=== PATIENT | male | born 1960 | race Caucasian/White ===

== ENCOUNTER 2022-02-03 09:51 | Emergency (ER) | payer MEDICARE, MEDICAID, SELFPAY ==
--- NOTE | 2022-02-03 10:27 | W.ED.MEDCLER ---
HPI - Medical Clearance General Stated complaint: med request Time Seen by Provider: 02/03/22 10:21 Source: patient Mode of arrival: ambulatory Limitations: no limitations History of Present Illness 61-year-old male with a significant psychiatric history presents to the ER today for medication refills. Patient reports he recently moved here from [place] and has not have a doctor here. He reports he is scheduled with but not until the summer. Patient reports he is worried because he needs a refill on several of his medications. Patient reports he needs a refill on metoprolol and simvastatin, also on Zyrtec. Patient has plenty of the benztropine and the nasal spray. Patient denies any recent changes in medications. No other concerns today. Related Information Previous Rx's Medication Instructions Recorded cetirizine 10 mg capsule (Zyrtec) 10 mg PO DAILY #30 caps 02/03/22 metoprolol tartrate 25 mg tablet 25 mg PO BID 30 days #60 tabs 02/03/22 simvastatin 20 mg tablet 20 mg PO DAILY #30 tabs 02/03/22 Allergies Allergy/AdvReac Type Severity Reaction Status Date / Time oxycodone [From OxyContin] Allergy nausea Verified 01/26/22 10:57 Penicillins Allergy ALGY-Difficulty Verified 01/26/22 10:57 Breathing lithium Allergy nausea Uncoded 01/26/22 10:57 Course Course 61-year-old male presents to the ER today for medication refills. Patient has a significant psychiatric history and is just needing his meds refilled because he is new to the area and does not have an appointment with psych until April. Patient actually just needs refills on simvastatin and metoprolol. He reports he wants a PCP in the same building as his psychiatrist. I explained to him that most of the time the PCPs are not in the same building as psychiatry but it would be the same medical system therefore they would have the same charts and could share the same history for the patient. MDM - Medical Clearance MDM Narrative Medical decision making narrative: 61-year-old male presents to the ER today for medication refills. Patient has a significant psychiatric history and is just needing his meds refilled because he is new to the area and does not have an appointment with psych until April. Patient actually just needs refills on simvastatin and metoprolol. He reports he wants a PCP in the same building as his psychiatrist. I explained to him that most of the time the PCPs are not in the same building as psychiatry but it would be the same medical system therefore they would have the same charts and could share the same history for the patient. I am okay with refilling these today. I did place a referral for a PCP and psychiatry to see if we could get him in sooner. Return to the ER with new or worsening symptoms. Critical Care Time Critical Care Time Critical Care Time: No Discharge Plan Discharge Patient Disposition: Home Clinical Impression: Medication refill Condition: Stable Prescriptions: New metoprolol tartrate 25 mg tablet 25 mg PO BID 30 Days Qty: 60 0RF simvastatin 20 mg tablet 20 mg PO DAILY Qty: 30 0RF Rx Instructions: at bedtime Zyrtec 10 mg capsule 10 mg PO DAILY Qty: 30 0RF Discharge Orders: Discharge ED (Routine); Ordered 02/03/22 Ordered By: Twyla Mcdaniel Discharge Diet: Usual diet Discharge Activity: Resume usual activity Patient Instructions: Opioid Safety, Pain Management Activity Restrictions/Additional Instructions: Take medications as prescribed. Follow-up with a PCP and psychiatry.
[2022-02-03 10:35] VITALS: BP 124/83; PULSE 86; RESP 16; TEMP 37; O2SAT 98
--- NOTE | 2022-02-07 12:53 | DCPLANNER ---
Addendum entered by Gina Trivedi 02/07/22 14:52: regional training manager was unable to reach patient to speak with him about services at [facility]. Addendum entered by Gina Trivedi 02/07/22 14:51: regional training manager received the following message from [facility] regarding follow up appointment: Yes, I was working with him. He told me he does not want services with [facility]. He said he was going to [facility] where he has a provider and said that he was told that [facility] has a psychiatrist that can give him the Invega. He said he cannot go to . even if he could get in sooner. He said he was walking, I don?t think he has transportation. He is living at [facility]. He would not hear what I was saying. He is also on the cancelation list for Dr. Monae. Original Note: regional training manager had message to speak with patient about getting a primary care physician. regional training manager called patient, unable to speak with patient at this time. regional training manager also had message to refer patient to [facility]. regional training manager emailed patients information to Merlene Garibay, tax collection coordinator at [facility]. Patients information will be reviewed. Clinic will call patient with appointment information.
== END 2022-02-03 10:48 | disposition home or self-care (01) ==
PROVIDERS: Emergency Provider Physician Assistant
DX: Z76.0 Encounter for issue of repeat prescription (principal)
CPT/HCPCS: 99284

== ENCOUNTER 2022-02-06 08:58 | Emergency (ER) | payer MEDICARE, MEDICAID, SELFPAY ==
[2022-02-06 09:02] VITALS: BP 125/81; PULSE 94; RESP 18; TEMP 36.5; O2SAT 98; BMI 25.1
--- NOTE | 2022-02-06 09:14 | ED_ITS ---
HPI - General Adult General: Chief complaint: General Medical Stated complaint: Wants to see a female DrAnson and female Psych Time Seen by Provider: 02/06/22 09:02 Source: patient Mode of arrival: ambulatory History of Present Illness: 61-year-old male presents emergency room stating he wants an Invega shot and a flu shot. He was seen here 3 days ago he states he recently moved here and was out of his medications he was given 1 month prescription for metoprolol and simvastatin. On arrival here he is demanding and confrontational to staff he demands that he only has female nurses. He also demands that he has a female physician and wants to be set up with a female psychiatrist. He denies any acute problems at this time. He states he has something scheduled with [facility] and is supposed to see a female psychiatrist there. He also states he has been over to [facility] is a primary care from clinic. Patient becomes belligerent when advised that we do not administer routine flu vaccinations or Invega shots in the emergency room. Associated symptoms: Deny chest pain, confusion, dyspnea, fevers/chills, headache(s), nausea, short of breath or vomiting Treatments prior to arrival: none Review of Systems Const: Denies: fever(s) or chills Card: Denies: chest pain Resp: Denies: dyspnea, productive cough or non-productive cough GI: Denies: abdominal pain, nausea or vomiting : Denies: dysuria Neuro: Denies: headache(s) or confusion PFS ED PFSH: Medical History (Updated 02/06/22 @ 09:54 by Miguel Rawls DO) Hyperlipidemia Hypertension Psychiatric care Physical Exam Narrative: EXAM NARRATIVE: Patient declined examination Course Vital Signs: Vital signs: Vital Signs Temperature 97.7 F 02/06/22 09:28 Pulse Rate 94 02/06/22 09:28 Respiratory Rate 18 02/06/22 09:28 Blood Pressure 125/81 02/06/22 09:28 Pulse Oximetry 98 02/06/22 09:28 Oxygen Delivery Me thod 02/06/22 09:02 MDM - General Adult Medical Decision Making Patient refuses exam. I was able to briefly talk to him and get a very brief review of systems is not appear to have any acute medical issue at this time. Once he realized we would not relent on the issue of female providers he chose to leave AM. I did call the crisis center. They are familiar with him they are going to try to get him in sooner they will discuss with the psychiatrist he is scheduled to see and see about getting his Invega sooner to prevent any crisis episodes. At this time he does not appear to be in a crisis episode that requires that we place him on a 96-hour hold or inpatient therapy. Medical Records I reviewed the patient's medical records. 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
[2022-02-06 09:28] VITALS: BP 125/81; PULSE 94; RESP 18; TEMP 36.5; O2SAT 98
== END 2022-02-06 09:29 | disposition left against medical advice (07) ==
PROVIDERS: Emergency Provider Family Medicine
DX: Z76.0 Encounter for issue of repeat prescription (principal); Z53.21 Procedure and treatment not carried out due to patient leaving prior to being seen by health care provider; I10 Essential (primary) hypertension; E78.5 Hyperlipidemia, unspecified
CPT/HCPCS: 99283

== ENCOUNTER → 2022-05-04 09:18 | Outpatient (BNVA) | payer MEDICARE, MEDICAID, OTHER, SELFPAY | PROVIDERS: Visit Provider Psychiatry & Neurology Psychiatry | DX: Z79.899 Other long term (current) drug therapy (principal); F20.9 Schizophrenia, unspecified | CPT/HCPCS: 80053; 80061; 83036; 84443; 85025 ==

== ENCOUNTER → 2023-04-23 10:31 | Outpatient (BNVA) | payer MEDICARE, MEDICAID, SELFPAY | PROVIDERS: Visit Provider Psychiatry & Neurology Psychiatry | DX: F25.0 Schizoaffective disorder, bipolar type (principal); Z79.899 Other long term (current) drug therapy | CPT/HCPCS: 80053; 80061; 83036; 83721; 84443; 85025 ==

== ENCOUNTER → 2024-02-07 09:40 | Outpatient (BNVA) | payer MEDICARE, MEDICAID, SELFPAY ==
[2023-10-01 10:06] VITALS: BP 158/106; BMI 37.4
== END ==
PROVIDERS: Visit Provider Student in an Organized Health Care Education/Training Program
DX: Z12.11 Encounter for screening for malignant neoplasm of colon (principal)
CPT/HCPCS: 99024; 99204

== ENCOUNTER 2024-05-08 09:43 | Day surgery (SDC) | payer MEDICAID, SELFPAY ==
[2023-10-01 10:06] VITALS: BP 158/106; BMI 37.4
[2024-05-08 10:32] VITALS: BP 146/99; PULSE 98; RESP 18; TEMP 36.8; O2SAT 96; BMI 34.2
[2024-05-08] MEDS: sodium chloride 0.9% 500 ML 15 ML IV (10:37)
[2024-05-08 10:39] LABS: Glucose Point of Care 160 mg/dL (70-110)
--- NOTE | 2024-05-08 11:12 | PC.NURSE ---
Pt drank milk this morning and also was unclear about his prep and was not cleaned out well,. Dr Elkins spoke to the patient and he will be rescheduled.
== END 2024-05-08 11:07 | disposition home or self-care (01) ==
PROVIDERS: Visit Provider Student in an Organized Health Care Education/Training Program
PROC: 0DJD8ZZ Inspection of Lower Intestinal Tract, Via Natural or Artificial Opening Endoscopic (ICD-10-PCS; CPT 45378; principal; 2024-05-08 11:00)
DX: Z53.8 Procedure and treatment not carried out for other reasons (principal)
CPT/HCPCS: 36416; 82962; J7040

== ENCOUNTER 2024-05-15 14:44 | Outpatient (CLI) | payer MEDICAID, SELFPAY ==
[2023-10-01 10:06] VITALS: BP 158/106; BMI 37.4
--- NOTE | 2024-05-15 14:55 | CT_ITS ---
WS: [id number] CT ABDOMEN AND PELVIS WITH CONTRAST HISTORY: ABDOMINAL DISTENSION TECHNIQUE: Imaging performed of the abdomen and pelvis with IV contrast. Single phase imaging of the abdomen. Coronal and sagittal reformats are submitted. All CT scans at [facility] use at [address] one of these dose optimization techniques: automated exposure control; mA and/or kV adjustment per patient size (includes targeted exams where dose is matched to clinical indication); or iterative re construction. IV CONTRAST: Omnipaque 350; 100 mL IV. Oral contrast: Yes. DLP: 979.21 mGy.cm COMPARISON: None available. Lower thorax: Lung bases are clear. Heart is normal size. No hiatal hernia. Liver/biliary system: Diffuse moderate hepatic steatosis. Liver is mildly enlarged. No mass. No intra hepatic bile duct dilatation. Normal portal vein. Gallbladder: Normal. No gallstones or wall thickening. No pericholecystic fluid. Pancreas: Normal size pancreas and pancreatic duct. No adjacent inflammation. Spleen: Normal size spleen. No mass or infarct. Adrenal glands: Normal. Right kidney: Minimal perinephric stranding. No obstruction or mass. Left kidney: Tiny cortical cyst hypodensities in the superior pole. Cortical hypodensities are too sm all to characterize. Mild perinephric stranding. No obstruction. Aorta: Mild atherosclerosis with no aneurysm. Lymphadenopathy: None. Free fluid: None. GI tract: Stomach is well distended with oral contrast. Nondiagnostic food products within the stomac h. No small bowel obstruction. No colon obstruction. No evidence for acute diverticulitis. Normal reyes endix. Abdominal wall: Mild diastases rectus. Pelvis: Normally distended urinary bladder. There is no focal wall thickening. Prostate gland is very small caliber. No free fluid or adenopathy. Bones: Mild spondylitic changes in the lower thoracic and lumbar spines. Advanced degenerative disc d isease at L4-5. CT/CT abdomen pelvis w con* [id number] IMPRESSION: 1. No acute abdominal or pelvic abnormalities. 2. No ascites. 3. No GI tract obstruction. 4. No renal obstruction. 5. Mild hepatomegaly and moderate hepatic steatosis. 6. No adenopathy in the abdomen or pelvis.
[2024-05-15] MEDS: iohexol 350 mg/mL 500 mL Btl (per mL) PO (15:55)
== END 2024-05-15 14:45 | disposition home or self-care (01) ==
PROVIDERS: PCP Family Medicine; Visit Provider Family Medicine
DX: R14.0 Abdominal distension (gaseous) (principal); K76.0 Fatty (change of) liver, not elsewhere classified; R93.422 Abnormal radiologic findings on diagnostic imaging of left kidney; I70.0 Atherosclerosis of aorta; M51.369 Other intervertebral disc degeneration, lumbar region without mention of lumbar back pain or lower extremity pain
CPT/HCPCS: 74177

== ENCOUNTER → 2024-06-03 07:00 | Day surgery (SDC) | payer MEDICARE, MEDICAID, SELFPAY ==
[2023-10-01 10:06] VITALS: BP 158/106; BMI 37.4
[2024-05-20 10:46] VITALS: BP 144/92; BMI 36.6
--- NOTE | 2024-06-03 08:36 | ANES.PREANE2 ---
Pre-Anesthetic Assessment Height/Weight: Height 5 ft 11 in Operation Date: 06/03/24 08:45 Proposed Procedures p Colonoscopy 01196, G0105, Z12.11(Not Applicable) - Ramin Elkins MD Anesthetic Plan Other: Patient has a substance abuse history comes in for a colonoscopy Preop blood sugar was 340s. Patient reports not taking his subcu insulin at home. When asked why he could not give me a reason. Patient is super fidgety and his eyes keep rolling back in his head. He states that he has been taking methamphetamine his whole life. He is refusing drug testing today Patient is also refusing to allow us to treat his blood sugar and does not want to wait around. We will remove his IV and let patient go home Medications/Allergies Home Medications Medication Instructions Recorded Confirmed Last Taken Type metoprolol succinate 25 mg 25 mg PO BID 90 days #180 tabs 05/23/22 05/29/24 05/29/24 Rx tablet,extended release 24 hr metformin 500 mg tablet 500 mg PO BID 10/23/23 05/29/24 05/29/24 History paliperidone palmitate 156 mg/mL 156 mg IM .q 28 days #1 mL 10/25/23 05/29/24 Unknown Rx intramuscular syringe losartan 25 mg tablet 25 mg PO DAILY 02/19/24 05/29/24 05/29/24 History simvastatin 40 mg tablet 40 mg PO BEDTIME 02/19/24 05/29/24 05/29/24 History sitagliptin phosphate 100 mg 100 mg PO DAILY 02/19/24 05/29/24 05/29/24 History tablet (Januvia) benztropine 2 mg tablet 2 mg PO BID 90 days #180 tabs 04/24/24 05/29/24 05/29/24 Rx cetirizine 10 mg tablet 10 mg PO DAILY 05/05/24 05/29/24 05/29/24 History Allergies Allergy/AdvReac Type Severity Reaction Status Date / Time lithium Allergy ADR-Nausea Verified 06/03/24 08:09 oxycodone [From OxyContin] Allergy nausea Verified 06/03/24 08:09 Penicillins Allergy ALGY-Difficulty Verified 06/03/24 08:09 Breathing REPLACED BY [facility] Anesthesia Medical History (Updated 04/24/24 @ 09:53 by Mara Crews, [facility]) Schizoaffective disorder, bipolar type Seasonal allergies History of Parkinson's disease Hyperlipidemia Hypertension Psychiatric care Family History (Updated 02/07/24 @ 10:13 by BÁRBARA Rueda) Father Cancer stomach Mother Cancer ovarian Social History Smoking and tobacco/nicotine status: former use of tobacco/nicotine Alcohol intake: current Alcohol intake frequency: holidays/special occasions only Substance/Drug Use: former Adopted: No Caregiver/support person: No Lives independently: Yes Household members: none Housing: Apartment Marital status: / Number of children: 1 Number of grandchildren: 2 Highest education level completed: 8th Grade Current occupational status: unemployed Pets and animals: No Leisure activites: exercise and clubs Sexually active: No Do you think of yourself as: Straight/Heterosexual Current gender identity: Male Janelle/Pentecostalism: Episcopal Special janelle needs: No Agree to transfusion: Yes Data Anesthesia Cardiac Studies: No Data to Display
== END ==
LOC: GILAB 07:01
PROVIDERS: PCP Family Medicine; Visit Provider Student in an Organized Health Care Education/Training Program
DX: Z12.11 Encounter for screening for malignant neoplasm of colon (principal); Z53.8 Procedure and treatment not carried out for other reasons

== ENCOUNTER → 2024-07-21 10:05 | Outpatient (BNVA) | payer MEDICARE, OTHER, SELFPAY ==
[2024-05-20 10:46] VITALS: BP 144/92; BMI 36.6
== END ==
PROVIDERS: PCP Family Medicine; Visit Provider Nurse Practitioner Psychiatric/Mental Health
DX: Z79.899 Other long term (current) drug therapy (principal); F25.0 Schizoaffective disorder, bipolar type
CPT/HCPCS: 80061; 83036

== ENCOUNTER → 2024-08-14 12:34 | Outpatient (BNVA) | payer MEDICARE, SELFPAY ==
[2024-08-12 08:41] VITALS: BP 143/101; BMI 36.0
== END ==
PROVIDERS: PCP Family Medicine; Visit Provider Student in an Organized Health Care Education/Training Program
DX: Z12.11 Encounter for screening for malignant neoplasm of colon (principal)
CPT/HCPCS: 99024; 99214

== ENCOUNTER 2024-09-05 20:16 | Inpatient (IN) | payer MEDICARE, MEDICAID, SELFPAY ==
[2024-08-12 08:41] VITALS: BP 143/101; BMI 36.0
[2024-09-05] VITALS (8 sets, daily range): BP systolic 149–179; BP diastolic 100–106; PULSE 84–109; RESP 12–20; TEMP 37.6; O2SAT 90–99; BMI 37.6
--- NOTE | 2024-09-05 21:13 | CTR_ITS ---
PROCEDURE INFORMATION: Exam: CT Head Without Contrast Exam date and time: 09/05/2024 9:33 PM Age: 64 years old Clinical indication: Stroke-like symptoms; Dizziness/giddiness; Additional info: EMS arrival for AMS. Patient randomly repeating holy father and will laugh for no reason at random. History of parkinson's. TECHNIQUE: Imaging protocol: Computed tomography of the head without contrast. Radiation optimization: All CT scans at this facility use at least one of these dose optimization techniques: automated exposure control; mA and/or kV adjustment per patient size (includes targeted exams where dose is matched to clinical indication); or iterative reconstruction. Other technique: STROKE PROTOCOL was implemented. COMPARISON: No relevant prior studies available. RADIATION DOSE METRICS: Total DLP (mGy-cm): 1123.68 FINDINGS: Brain: Normal. No hemorrhage. Unremarkable white matter. No mass effect. Cerebral ventricles: No ventriculomegaly. Paranasal sinuses: Visualized sinuses are unremarkable. No fluid levels. Mastoid air cells: Visualized mastoid air cells are well aerated. Bones: Unremarkable. No acute fracture. Soft tissues: Unremarkable. CT/CT head thrombolytic 60794 IMPRESSION: No acute intracranial abnormality. ASSESSMENT: ASPECTS ([place] Stroke Program Early CT Score) is 10.
--- NOTE | 2024-09-05 21:13 | ECG_ITS ---
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
[2024-09-05 21:22] LABS: Basophils # 0.1 10^3/uL (0.0-0.1); Basophils % 0.6 %; Eosinophils # 0.3 10^3/uL (0.0-0.8); Eosinophils % 3.4 %; Hematocrit 44.6 % (37-53); Lymphocytes # 1.9 10^3/uL (0.8-4.8); Lymphocytes % 24.5 %; Mean Corpuscular HGB Conc 32.7 g/dL (30-55); Mean Corpuscular Hemoglobin 28.7 pg (27-33); Mean Corpuscular Volume 87.6 fl (82-101); Mean Platelet Volume 9.5 fL (7.4-10.4); Monocytes # 0.8 10^3/uL (0.2-0.9); Monocytes % 9.6 %; Neutrophils # 4.82 10^3/uL (1.8-7.7); Neutrophils % 61.5 %; Nucleated Red Blood Cells % 0 %; Platelet Count 293 10^3/cmm (157-399); Red Blood Count 5.09 10^6/uL (3.85-5.65); Red Cell Distribution Width 13.4 % (12.1-15.1); White Blood Count 7.84 10^3/uL (3.29-11.43)
[2024-09-05 21:34] LABS: INR 0.99 (0.8-1.2)
[2024-09-05 21:35] LABS: Partial Thromboplastin Time 28.5 SECONDS (23.9-36.7)
[2024-09-05 21:39] LABS: Alanine Aminotransferase 38 U/L (0-41); Albumin Level 4.2 g/dL (3.5-5.2); Alkaline Phosphatase 83 U/L (40-130); Anion Gap 15.6 (5-19); Aspartate Amino Transferase 29 U/L (0-40); Blood Urea Nitrogen 9 mg/dL (8-23); Calcium 8.8 mg/dL (8.5-10.5); Carbon Dioxide 23 mmol/L (22-29); Chloride 93 mmol/L (98-107); Creatinine Clr Calc Pharmacy 145.7362; Globulin 2.8 g/dL (1.3-4.6); Glomerular Filtration Rate 114.3 mL/min (90-130); Glucose 158 mg/dL (65-115); Osmolality Calculated 268 mOsm/kg (285-295); Potassium 3.6 mmol/L (3.5-5.1); Sodium 128 mmol/L (136-145)
[2024-09-05 22:17] LABS: Bilirubin Urine Negative (Negative); Blood Urine Negative (Negative); Glucose Urine UA Negative (Normal); Ketones Urine Trace (Negative); Leukocyte Esterase Urine Negative (Negative); Nitrate Urine Negative (Negative); Protein Urine Negative (Negative); Specific Gravity, Urine 1.012 (1.005-1.030); Urine Appearance Clear (CLEAR); Urine Color Yellow (Yellow); pH Urine 5.5 (5-7)
[2024-09-05 22:21] LABS: Add Urine Microscopic? YES; Bacteria Urine None Seen /hpf; Hyaline Casts Urine 1.65 /lpf; RBC Urine 0-2 /hpf (0-2); Squamous Epithelial Cell Urine 0-5 /hpf (0-5); WBC Urine 0-5 /hpf (0-5)
[2024-09-05 22:27] LABS: Amphetamines Screen Urine Negative (Negative); Barbiturates Screen Urine Negative (Negative); Benzodiazepines Screen Urine Negative (Negative); Cocaine Screen Urine Negative (Negative); Opiate Screen Urine Negative (Negative); PCP Screen Urine Negative (Negative); THC Screen Urine Negative (Negative)
[2024-09-05 22:39] LABS: UA Slide Review UA Slide Review Perf
--- NOTE | 2024-09-05 22:55 | W.ED.AMS ---
HPI - Altered Mental Status General: Chief Complaint: Altered Mental Status Stated Complaint: AMS Time Seen by Provider: 09/05/24 20:39 History of Present Illness: Benedicto, a male patient with a history of schizophrenia, was found outside in the lobby of his apartment complex exhibiting abnormal behavior. He was initially unresponsive to commands and making repetitive statements, primarily saying Holy Father and his birthday. The patient was observed earlier in the day by some individuals who thought he was acting abnormally. When emergency services initially arrived, he had already left the scene. He was later found and brought in for evaluation. Benedicto is currently minimally responsive, only occasionally responding to his name or making repetitive statements. He does not follow commands, making it difficult to assess for any weakness. His blood pressure was recorded as 140/100. Benedicto appears to be experiencing altered mental status of unclear duration. He is not responding appropriately to questions and has limited verbal output. When asked if he is hurting anywhere or if he has taken any medications recently, he does not provide a clear answer. The patient's ability to perform daily activities is likely impaired given his current mental state, though specific details are not available. Related Data Home Medications ?Medication ?Instructions ?Recorded ?Confirmed metformin 500 mg tablet See Rx Instructions .Route .COMPLEX 10/23/23 08/28/24 losartan 25 mg tablet 25 mg PO DAILY 02/19/24 08/28/24 simvastatin 40 mg tablet 40 mg PO BEDTIME 02/19/24 08/28/24 sitagliptin phosphate 100 mg 100 mg PO DAILY 02/19/24 08/28/24 tablet (Januvia) cetirizine 10 mg tablet 10 mg PO DAILY 05/05/24 08/28/24 Previous Rx's ?Medication ?Instructions ?Recorded metoprolol succinate 25 mg 25 mg PO BID 90 days #180 tabs 05/23/22 tablet,extended release 24 hr paliperidone palmitate 156 mg/mL 156 mg IM .q 28 days #1 mL 10/25/23 intramuscular syringe benztropine 2 mg tablet 2 mg PO BID 90 days #180 tabs 04/24/24 peg 3350-electrolytes 236 240 ml PO Q10M #4,000 mL 08/28/24 gram-22.74 gram-6.74 gram-5.86 gram solution (Golytely) bisacodyl 5 mg tablet,delayed 5 mg PO DAILY 2 days #4 tabs 08/29/24 release (Dulcolax (bisacodyl)) Allergies Allergy/AdvReac Type Severity Reaction Status Date / Time lithium Allergy ADR-Nausea Verified 08/28/24 08:44 oxycodone (From OxyContin) Allergy nausea Verified 08/28/24 08:44 Penicillins Allergy ALGY-Difficulty Verified 08/28/24 08:44 Breathing Review of Systems General: Reports: ROS unobtainable due to mental status PFSH ED PFSH: Medical History Schizoaffective disorder, bipolar type Seasonal allergies History of Parkinson's disease Hyperlipidemia Hypertension Psychiatric care Family History Father Cancer stomach Mother Cancer ovarian Social History Smoking and tobacco/nicotine status: former use of tobacco/nicotine Alcohol intake: current Alcohol intake frequency: holidays/special occasions only Substance/Drug Use: former Adopted: No Caregiver/support person: No Lives independently: Yes Household members: none Housing: Apartment Marital status: / Number of children: 1 Number of grandchildren: 2 Highest education level completed: 8th Grade Current occupational status: unemployed Pets and animals: No Leisure activites: exercise and clubs Sexually active: No Do you think of yourself as: Straight/Heterosexual Current gender identity: Male Janelle/Tenriism: Alevism Special janelle needs: No Agree to transfusion: Yes Physical Exam Const: COMMON NORMALS: no acute distress, patient oriented x3, healthy appearing, alert and well nourished HENMT: COMMON NORMALS: normocephalic HEAD & SCALP: normocephalic Eye: COMMON NORMALS: EOMs intact bilaterally Neck/C-Spine: COMMON NORMALS: full ROM and supple Resp: COMMON NORMALS: normal respiratory effort, No retractions and clear to auscultation bilaterally AUSCULTATION: clear to auscultation bilaterally Cardio: COMMON NORMALS: regular rate, regular rhythm, No gallops present (Cardio) and No murmurs present (Cardio) RATE: regular rate RHYTHM: regular rhythm GI: COMMON NORMALS: Soft to palpation and non-tender PALPATION: Yes Soft to palpation Extremity: GENERAL: Yes normal exam except as noted Neuro: COMMON NORMALS: patient oriented x3 SENSORIUM/ORIENTATION: Yes alert Skin: COMMON NORMALS: no rashes or lesions noted GENERAL SKIN EXAM: no rashes or lesions noted Course Vital Signs: Vital signs: Vital Signs Temperature 99.7 F H 09/05/24 20:25 Pulse Rate 88 09/06/24 02:15 Respiratory Rate 21 H 09/06/24 02:15 Blood Pressure 177/97 09/06/24 02:15 Pulse Oximetry 99 09/06/24 02:15 Oxygen Delivery Me thod Room Air 09/06/24 01:38 MDM - Altered Mental Status Medical Decision Making 64-year-old male presents via EMS for evaluation of altered mental status. Patient lives in assisted living and other residents saw that he was acting abnormally today EMS brought him in for evaluation. On physical exam there was no focal neurologic deficit. However, his right eye was somewhat deviated up into the right. However, when tracking people it would then tracked normally with his left eye. He was slightly tachycardic on arrival. This resolved with hydration. His labs were significant for hyponatremia and hyperchloremia with some hyperglycemia. Patient's head CT did not show any acute findings. On chart review it would appear that the patient has not gotten his Invega shot in quite some time. Discussed the case with the patient's brother over the phone who stated this is how he sometimes acts when he is off his medications. His symptoms likely represent acute schizophrenia versus stroke versus infection versus intracranial mass. Case discussed with Dr. Fermin who agreed to admit the patient into the psych unit. Differential Diagnosis Likely alcoholic intoxication, altered mental status, delirium, dementia, hypoglycemia, hyponatremia, subarachnoid hemorrhage and sepsis Medical Records I reviewed the patient's medical records. Lab Data I reviewed the patient's lab results. 09/05/24 20:26 09/05/24 20:[address] 09/05/24 21:13 IMPRESSION: No acute intracranial abnormality. ASSESSMENT: ASPECTS ([place] Stroke Program Early CT Score) is 10. ADDENDUM: 09/05/242152 Addendum: THIS REPORT CONTAINS FINDINGS THAT MAY BE CRITICAL TO PATIENT CARE. The findings were verbally communicated via telephone conference with RENATA LANGFORD at 9:52 PM CDT on 09/05/2024. The findings were acknowledged and understood. Laboratory Results WBC 7.84 10^3/uL (3.29-11.43) 09/05/24 20: RBC 5.09 10^6/uL (3.85-5.65) 09/05/24 20: Hgb 14.60 g/dL (11.27-16.99) 09/05/24 20: Hct 44.6 % (37-53) 09/05/24: MCV 87.6 fl (82-101) 09/05/24: MCH 28.7 pg (27-33) 09/05/24 20: MCHC 32.7 g/dL (30-55) 09/05/24: RDW 13.4 % (12.1-15.1) 09/05/24: Plt Count 293 10^3/cmm (157-399) 09/05/24: MPV 9.5 fL (7.4-10.4) 09/05/24: Neut % (Auto) 61.5 % 09/05/24: Lymph % (Auto) 24.5 % 09/05/24: [place] % (Auto) 9.6 % 09/05/24: Eos % (Auto) 3.4 % 09/05/24: Baso % (Auto) 0.6 % 09/05/24: Neut # (Auto) 4.82 10^3/uL (1.8-7.7) 09/05/24: Lymph # (Auto) 1.9 10^3/uL (0.8-4.8) 09/05/24 20: [place] # (Auto) 0.8 10^3/uL (0.2-0.9) 09/05/24: Eos # (Auto) 0.3 10^3/uL (0.0-0.8) 09/05/24: Baso # (Auto) 0.1 10^3/uL (0.0-0.1) 09/05/24: Nucleated RBC % (auto) 0 % 09/05/24: Nucleated RBCs # 0.0 /100WBC 09/05/24 20: PT 13.80 SECONDS (12.1-14.9) 09/05/24 20: INR 0.99 (0.8-1.2) 09/05/24 20: APTT 28.5 SECONDS (23.9-36.7) 09/05/24 20: Sodium 128 mmol/L (136-145) L 09/05/24 20: Potassium 3.6 mmol/L (3.5-5.1) 09/05/24: Chloride 93 mmol/L (98-107) L 09/05/24: Carbon Dioxide 23 mmol/L (22-29) 09/05/24 20: Anion Gap 15.6 (5-19) 09/05/24 20: BUN 9 mg/dL (8-23) 09/05/24: Creatinine 0.7 mg/dL (0.7-1.2) 09/05/24 20: GFR Calculation 114.3 mL/min (90-130) 09/05/24: Glucose 158 mg/dL (65-115) H 09/05/24: Calculated Osmolality 268 mOsm/kg (285-295) L 09/05/24: Calcium 8.8 mg/dL (8.5-10.5) 09/05/24: Total Bilirubin 1.0 mg/dL (0.15-1.2) 09/05/24 20: AST 29 U/L (0-40) 09/05/24 20: ALT 38 U/L (0-41) 09/05/24: Alkaline Phosphatase 83 U/L (40-130) 09/05/24 20: Total Protein 7.0 g/dL (6.6-8.7) 09/05/24 20: Albumin 4.2 g/dL (3.5-5.2) 09/05/24 20: Globulin 2.8 g/dL (1.3-4.6) 09/05/24 20: Urine Color Yellow (Yellow) 09/05/24 22:07 Urine Appearance Clear (CLEAR) 09/05/24 22:07 Urine pH 5.5 (5-7) 09/05/24 22:07 Ur Specific [place] 1.012 (1.005-1.030) 09/05/24 22:07 Urine Protein Negative (Negative) 09/05/24 22:07 Urine Glucose (UA) Negative (Normal) 09/05/24 22:07 Urine Ketones Trace (Negative) 09/05/24 22:07 Urine Blood Negative (Negative) 09/05/24 22:07 Urine Nitrate Negative (Negative) 09/05/24 22:07 Urine Bilirubin Negative (Negative) 09/05/24 22:07 Urine Urobilinogen 1.0 mg/dL (Negative) 09/05/24 22:07 Ur Leukocyte Esterase Negative (Negative) 09/05/24 22:07 Urine RBC 0-2 /hpf (0-2) 09/05/24 22:07 Urine WBC 0-5 /hpf (0-5) 09/05/24 22:07 Ur Squamous Epith Cells 0-5 /hpf (0-5) 09/05/24 22:07 Amorphous Sediment Not Reportable 09/05/24 22:07 Urine Bacteria None seen /hpf (NONE) 09/05/24 22:07 Hyaline Casts 1.65 /lpf 09/05/24 22:07 Urine Opiates Screen Negative ng/mL (Negative) 09/05/24 22:07 Ur Barbiturates Screen Negative ng/mL (Negative) 09/05/24 22:07 Ur Phencyclidine Scrn Negative ng/mL (Negative) 09/05/24 22:07 Ur Amphetamines Screen Negative ng/mL (Negative) 09/05/24 22:07 U Benzodiazepines Scrn Negative ng/mL (Negative) 09/05/24 22:07 Urine Cocaine Screen Negative ng/mL (Negative) 09/05/24 22:07 U Marijuana (THC) Screen Negative ng/mL (Negative) 09/05/24 22:07 All radiology interpretation(s) finalized by discharge EKG Data EKG 1: Interpretation: Sinus rhythm with first-degree AV block with a ventricular rate of 98, OR interval 216, QRS duration 90, QTc of 405, no ST segment elevation or depression. EKG 2: Interpretation: Sinus rhythm with first-degree AV block rate 95, parable 203, cures duration 98, QTc of 423, no ST segment elevation or depression Discharge Plan Discharge Patient Disposition: Placed in Observation Clinical Impression: Schizophrenia, Altered mental status Condition: Stable Prescriptions: No Action metformin 500 mg tablet See Rx Instructions .ROUTE .COMPLEX Rx Instructions: take 2 in the am and 1 at night paliperidone palmitate 156 mg/mL syringe 156 mg IM .q 28 days Qty: 1 12RF Rx Instructions: Injection every 28 days Januvia 100 mg tablet 100 mg PO DAILY benztropine 2 mg tablet 2 mg PO BID 90 Days Qty: 180 2RF Rx Instructions: Take one tablet twice per day peg 3350-electrolytes [Golytely] 236-22.74-6.74 -5.86 gram recon soln 240 ml PO Q10M Qty: 4000 0RF Rx Instructions: until fecal effluent is clear bisacodyl [Dulcolax (bisacodyl)] 5 mg tablet,delayed release (DR/EC) 5 mg PO DAILY 2 Days Qty: 4 0RF metoprolol succinate 25 mg tablet extended release 24 hr 25 mg PO BID 90 Days Qty: 180 0RF losartan 25 mg tablet 25 mg PO DAILY simvastatin 40 mg tablet 40 mg PO BEDTIME cetirizine 10 mg tablet 10 mg PO DAILY Rx Instructions: TAKE ONE TABLET BY MOUTH EVERY DAY Referrals: Nidia Mccann DO [Primary Care Provider] - Patient Instructions: Altered Mental Status (ED) Print Language: [place] Coding Level of Care Code ED Dude Wrangler for Brien Loomis
[2024-09-05] MEDS: sodium chloride 0.9% 1,000 ML 999 ML IV (23:31)
[2024-09-06] VITALS (23 sets, daily range): BP systolic 124–185; BP diastolic 70–118; PULSE 82–107; RESP 12–21; TEMP 36.4–37.3; O2SAT 94–99
--- OUTSIDE RECORDS SUMMARY | 2024-09-06 04:32 | XMS_ITS | Data Portability ---
Author Organization FACUNDO Hook [facility] Address [address] [facility] [facility] [address] [place] [address] Care Team Providers Care Senior Underwriter Name Role Phone CHRISTOPHER ARCOS Primary Care Provider Assessment Encounter Date Assessment Date Assessment LastModified by Organization Details LastModified Time 11/01/2022 11/01/2022 The patient is doing well on current medications. We will send referral to urology as well as neurology for management of Parkinson's. Patient was encouraged to continue to seek psychiatric care through [facility]. No other concerns today. [email or web address] Not available 11/01/2022 12:29:00 12/20/2022 12/20/2022 Overall the patient is doing well on current medications. Will check an A1C today given his history of elevated blood sugars. The patient does have acquired hearing loss due to aging and would likely benefit from a doorbell so that he can hear people at his door. Will send a letter to the building drafting officer. Otherwise continue current medications with no changes. Continue to follow-up with psychiatry. [email or web address] Not available 12/20/2022 10:29:21 Plan of Treatment Reminders Order Date Submit Date Provider Last Modified By Organization Details Last Modified Time Details Appointments None recorded. Lab CMP, serum or plasma 2022 023 LATONYADEB [facility], [address], [place], [address], 3 11:36:04 lipid panel, blood 2022 023 LATONYADEB [facility], [address], [place], [address], 3 11:36:07 CBC 2022 023 LATONYA [facility], [address], [address], 3 11:03:45 HbA1c (hemoglobin A1c), blood 2022 023 [facility] ([facility]), [address] [place], [address], 3 15:33:45 Referral urologist referral 2022 023 [email or web address] Not available 3 12:50:00 neurologist referral [email or web address] [facility], [address] [place], [address], 3 20:17:18 Procedures None recorded. Surgeries None recorded. Imaging None recorded. Medication Orders lisinopril 20 mg tablet 2022 023 [facility] [place], [address] [place], [address], 3 17:22:52 Patient TargetsNo targets recorded. Patient InstructionsNo instructions recorded. Reason for Referral Urologist Referral for Lower urinary tract symptoms due to benign prostatic hypertrophy Referring Physician: Christopher Arcos, Family Medicine, Encounter Date: 11/01/2022 Neurologist Referral for Par kinson's disease Referring Physician: Christopher Arcos Family Medicine, Encounter Date: 11/01/2022 Results Created Date Observation Date Name Description Value Unit Range Abnormal Flag Note LastModifiedBy Organization Detail LastModifiedTime 12/21/19 23 12/20/2022 HbA1c (hemo globi n A1c), blood HbA1c 5.7 Not Available [facility] ([facility]) [address] [place], [address], 12/20/2022 10:02:33 04/02/20 23 04/02/2023 CBC WBC 5.4 x10 4.5-10 .5 Not Available [facility] [address] [facility] [address], [place], [address], 04/02/2023 11:03:45 04/02/20 23 04/02/2023 CBC RBC 5.07 x10 4.30-5 .90 Not Available [facility] [address] [facility], [place], [address], 04/02/2023 11:03:45 04/02/20 23 04/02/2023 CBC HGB 15.4 g/dL 13.5-1 8.0 Not Available [facility] [address] [facility], [place], [address], 04/02/2023 11:03:45 04/02/20 23 04/02/2023 CBC HCT 44.1 % 35.0-6 0.0 Not Available [facility] [address] [facility], [place], [address], 04/02/2023 11:03:45 04/02/20 23 04/02/2023 CBC MCV 86.9 fL 80.0-9 9.9 Not Available [facility] [address] [facility] [address] [facility], [place], [address], 04/02/2023 11:03:45 04/02/20 23 04/02/2023 CBC MCH 30.4 pg 27.0-3 2.0 Not Available [facility] [address] [facility], [place], [address], 04/02/2023 11:03:45 04/02/20 23 04/02/2023 CBC MCHC 34.9 g/dL 32.0-3 6.0 Not Available [facility] [address] [facility], [place], [address], 04/02/2023 11:03:45 04/02/20 23 04/02/2023 CBC RDW 14.3 % 11.5-1 4.5 Not Available [facility] [address] [facility] [address], [place], [address], 04/02/2023 11:03:45 04/02/20 23 04/02/2023 CBC plt 208.5 x10 150.0- 451.0 Not Available [facility] [address] [facility] [address], [place], [address], 04/02/2023 11:03:45 04/02/20 23 04/02/2023 CBC lymphocytes % 30.1 % 20.0-5 0.0 Not Available [facility] [address] [address], [place], [address], 04/02/2023 11:03:45 04/02/20 23 04/02/2023 CBC granulcytes % 52.9 % 30.0-7 0.0 Not Available [facility] [address] [address], [place], [address], 04/02/2023 11:03:45 04/02/20 23 04/02/2023 CBC monocytes % 10.7 % 2.0-10 .0 high Not Available [facility] [address] [facility] [address], [place], [address], 04/02/2023 11:03:45 04/02/20 23 04/02/2023 CBC granulcytes# 2.8 x10 Not Martina ilable [facility] [address] [address], [place], [address], 04/02/2023 11:03:45 04/02/20 23 04/02/2023 CBC lymphocytes # 1.6 x10 Not Available [facility] [address] [address], [place], [address], 04/02/2023 11:03:45 04/02/20 23 04/02/2023 CBC monocytes # 0.6 x10 Not [facility] [address] [facility] [address], [place], [address], 04/02/2023 11:03:45 04/02/20 23 04/02/2023 CMP (MALE ) glucose 151.0 mg/dL 60.0-9 9.0 high Not Available [facility] [address] [facility] [address], [place], [address], 04/02/2023 11:36:04 04/02/20 23 04/02/2023 CMP (MALE ) BUN (blood urea nitrogen) 20.0 mg/dL 10.0-2 6.0 Not Available [facility] [address] [address], [place], [address], 04/02/2023 11:36:04 04/02/20 23 04/02/2023 CMP (MALE ) creatinine (serum) 0.9 mg/dL 0.4-1. 5 Not Available [facility] [address] [address], [place], [address], 04/02/2023 11:36:04 04/02/20 23 04/02/2023 CMP (MALE ) BUN/creatini ne ratio 22.22 ratio Not Available [facility] [address] [facility] [address], [place], [address], 04/02/2023 11:36:04 04/02/20 23 04/02/2023 CMP (MALE ) eGFR calculated 91.2 Not Available [facility] [address] [facility] [address], [place], [address], 04/02/2023 11:36:04 04/02/20 23 04/02/2023 CMP (MALE ) total protein 7.1 g/dL 6.0-8. 5 Not Available [facility] [address] [facility] [address], [place], [address], 04/02/2023 11:36:04 04/02/20 23 04/02/2023 CMP (MALE ) total bilirubin 0.6 mg/dL 0.2-1. 3 Not Available [facility] [address] [facility] [address], [place], [address], 04/02/2023 11:36:04 04/02/20 23 04/02/2023 CMP (MALE ) albumin 4.1 g/dL 3.5-5. 5 Not Available [facility] [address] [facility] [address], [place], [address], 04/02/2023 11:36:04 04/02/20 23 04/02/2023 CMP (MALE ) globulin 3.0 calc Not Available [facility] [address] [facility] [address], [place], [address], 04/02/2023 11:36:04 04/02/20 23 04/02/2023 CMP (MALE ) AST (SGOT) 46.0 U/L 0.0-46 .0 Not Available [facility] [address] [facility] [address], [place], [address], 04/02/2023 11:36:04 04/02/20 23 04/02/2023 CMP (MALE ) altv (SGPT) 68.0 U/L 13.0-6 9.0 normal Not Available [facility] [address] [facility] [address], [place], [address], 04/02/2023 11:36:04 04/02/20 23 04/02/2023 CMP (MALE ) A/G ratio 1.4 ratio Not Available [facility] [address] [facility] [address], [place], [address], 04/02/2023 11:36:04 04/02/20 23 04/02/2023 CMP (MALE ) ALP phos 74.0 U/L 30.0-1 40.0 normal Not Available [facility] [address] [facility], [place], [address], 04/02/2023 11:36:04 04/02/20 23 04/02/2023 CMP (MALE ) calcium 9.6 mg/dL 8.4-10 .5 Not Available [facility] [address] [facility] [address], [place], [address], 04/02/2023 11:36:04 04/02/20 23 04/02/2023 CMP (MALE ) sodium 133.0 mmol/ L 136.0- 145.0 low Not Available [facility] [address] [facility] [address], [place], [address], 04/02/2023 11:36:04 04/02/20 23 04/02/2023 CMP (MALE ) potassium 4.5 mmol/ L 3.5-5. 1 Not Available [facility] [address] [facility] [address], [place], [address], 04/02/2023 11:36:04 04/02/20 23 04/02/2023 CMP (MALE ) chloride 99.0 mmol/ L 98.0-1 10.0 normal Not Available [facility] [address] [facility] [address], [place], [address], 04/02/2023 11:36:04 04/02/20 23 04/02/2023 CMP (MALE ) C02 29.0 mmol/ L 22.0-3 1.0 Not Available [facility] [address] [facility] [address], [place], [address], 04/02/2023 11:36:04 04/02/20 23 04/02/2023 CMP (MALE ) anion gap 5.0 calc Not Available [facility] [address] [facility] [address], [place], [address], 04/02/2023 11:36:04 04/02/20 23 04/02/2023 CMP (MALE ) osmolality 280.2 calc Not Available [facility] [address] [facility] [address], [place], [address], 04/02/2023 11:36:04 04/02/20 23 04/02/2023 LIPID PROFI LE (MALE ) cholesterol 271.0 mg/dL 0.0-20 0.0 high Not Available [facility] [address] [facility] [address], [place], [address], 04/02/2023 11:36:07 04/02/20 23 04/02/2023 LIPID PROFI LE (MALE ) trig 505.0 mg/dL 0.0-15 0.0 high Not Available [facility] [address] [facility], [place], [address], 04/02/2023 11:36:07 04/02/20 23 04/02/2023 LIPID PROFI LE (MALE ) HDL - direct 32.0 mg/dL >40.0 low Not Available [facility] [address] [facility] [address], [place], [address], 04/02/2023 11:36:07 04/02/20 23 04/02/2023 LIPID PROFI LE (MALE ) VLDL - direct 101.0 mg/dL Not Available [facility] [address] [facility] [address], [place], [address], 04/02/2023 11:36:07 04/02/20 23 04/02/2023 LIPID PROFI LE (MALE ) LDL - direct 138.0 mg/dL 0.0-13 0.0 high Not Available [facility] [address] [facility] [address], [place], [address], 04/02/2023 11:36:07 Result Notes None recorded. Problems Name Problem SNOMED Code Status Onset Date Resolution Date Notes Provider Name and Address Organization Details Recorded Time Psychotic disorder 54826052 Active 2022 REGI agustin [facility] 3 11:37:18 Parkinson's disease 50272260 Active 2022 REGI agustin [facility] 3 11:37:18 Benign prostatic hyperplasia 639200066 Active 2022 REGI agustin [facility] 3 11:37:18 Bipolar disorder 98097876 Active 2022 REGI agustin [facility] 3 11:37:17 Lower urinary tract symptoms due to benign prostatic hypertrophy 0944756904527 1 Active 2022 REGI ag[facility]in [facility] 3 11:37:18 Essential hypertensio n 68148480 Active 2022 REGI agustin [facility] 3 11:37:18 History of myocardial infarction 041714860 Active 2022 REGI ag[facility]in [facility] 3 11:37:18 Schizophren ia 28197424 Active 2022 REGI ag[facility]in [facility] 3 16:42:51 Hyperglycem ia 75455017 Active 2022 REGI ag[facility]in [facility] 3 16:43:01 Allergic rhinitis 91781908 Active 2022 REGI ag[facility]in [facility] 3 16:42:56 Acquired hearing loss 838927759 Active 2022 REGI agustin [facility] 3 16:42:48 Hyperlipide tyler 88774407 Active 2022 Christopher Arcos MD [address] [place] [address], [phone], [facility] 3 10:13:33 Fear of heights 695326942 Active 2022 Christopher Arcos MD [address] [place] [address], [phone], [facility] 3 10:13:55 Problem Notes None recorded. Medical Equipment None Reported. Allergies Allergen ID Allergen Name Allergen Category Reaction Reaction Severity Criticality Documentation Date Start Date Code Code System Note Provider Name and Address Organization Details Recorded Time 4597 Product containin g penicilli n (product) medicatio n Not available Not available Not available 11/01/2022 39417 8001 SNOMED REGI ag[facility]in [facility] 3 10:01:00 4598 Oxycontin medicatio n Not available Not available Not available 11/01/2022 19060 6 RxNorm REGI agustin [facility] 3 10:01:10 83978 lithium Not available Not available Not available Not available 04/02/2023 6448 RxNorm MCPARAMLE ED nikole [facility] 3 09:45:23 Medications Name Sig Start Date Stop Date Status Note LastModified by Organization Details LastModified Time cetirizine 10 mg tablet TAKE ONE TABLET BY MOUTH EVERY DAY active Not Available Not Available No t Available lisinopril 20 mg tablet Take 1 tablet every day by oral route. 2022 active Not Available Not Available Not Avai lable simvastatin 20 mg tablet take ONE tablet BY MOUTH ONCE DAILY active Not Available Not Available No t Available benztropine 2 mg tablet TAKE 1 TABLET BY MOUTH TWICE DAILY active Not Available Not Available No t Available metoprolol succinate ER 25 mg tablet,exte nded release 24 hr TAKE ONE TABLET BY MOUTH TWICE DAILY active Not Available Not Available No t Available metoprolol tartrate 25 mg tablet Take 1 tablet twice a day by oral route. 06/01 completed Not Available Not Available Not Available Invega Sustenna 234 mg/1.5 mL intramuscul ar syringe inject 234mg (1.5ml) INTRAMUSC ULARLY every 28 DAYS active Not Available Not Available No t Available Flonase Allergy Relief 50 mcg/actuati on nasal spray,suspe nsion [place] 1 spray every day by intranasa l route. 2022 active Not Available Not Available Not Avai lable Vitals Date Recorded Respiratory rate Body height Body mass index (BMI) Body weight Body temperature Heart rate Oxygen saturation Oxygen saturation in Arterial blood by Pulse oximetry Systolic blood pressure Diastolic blood pressure Provider Name and Address Organization Details Last Updated DateTime 3 20 /min 180.34 cm 33.4 kg/m2 820620. 98 g 97.5 [degF] 64 /min 97 % 97 % 112 mm[Hg] 80 mm[Hg] [facility] 3 10:06:22 Date Recorded Body height Respiratory rate Body mass index (BMI) Body weight Body temperature Heart rate Oxygen saturation Oxygen saturation in Arterial blood by Pulse oximetry Systolic blood pressure Diastolic blood pressure Provider Name and Address Organization Details Last Updated DateTime 3 180.34 cm 20 /min 33.1 kg/m2 156524. 09 g 97.2 [degF] 86 /min 98 % 98 % 150 mm[Hg] 80 mm[Hg] [facility] 3 09:43:58 Date Recorded Body height Respiratory rate Body mass index (BMI) Body weight Body temperature Heart rate Oxygen saturation Oxygen saturation in Arterial blood by Pulse oximetry Systolic blood pressure Diastolic blood pressure Provider Name and Address Organization Details Last Updated DateTime 3 180.34 cm 20 /min 33.8 kg/m2 158861. 45 g 97.9 [degF] 94 /min 97 % 97 % 144 mm[Hg] 86 mm[Hg] REGI MILNER [facility] 09:45:29 Date Recorded Body height Body mass index (BMI) Body weight Body temperature Oxygen saturation Oxygen saturation in Arterial blood by Pulse oximetry Heart rate Systolic blood pressure Diastolic blood pressure Provider Name and Address Organization Details Last Updated DateTime 3 180.34 cm 35.9 kg/m2 270892. 04 g 97.5 [degF] 95 % 95 % 105 /min 150 mm[Hg] 86 mm[Hg] CAMILLE WARD [facility] 09:45:10 Social History Question Answer Notes LastModified by Organizat ion Details LastModified Time Tobacco Smoking Status Former Smoker CAMILLE agustin [facility] 04/02/2023 09:47:08 What Is Your Level Of Alcohol Consumption? Occasional Information not available 04/02/2023 What Is Your Level Of Caffeine Consumption? Occasional Information not available 04/02/2023 Are You Currently Employed? No Information not available 04/02/2023 What Is Your Relationship Status? Information not available 04/02/2023 Sex: Unknown Functional Status Question Answer Note LastModified by Organization D etails LastModified Time Are you able to walk? YESWOREST Information not available 04/02/2023 Are you able to care for yourself? Yes Information not available 04/02/2023 Mental Status None recorded. Family History Nothing Reported Notes:cancer: mother, father , Medical History No medical history recorded. Immunizations Vaccine Type Date Status Note Provider Nam e and Address Organization Details Recorded Time COVID-19, mRNA, LNP-S, PF, 100 mcg/0.5mL dose or 50 mcg/0.25mL dose 09/30/2021 completed [facility]GI ag[facility]in [facility] 02/04/2023 16:43:22 COVID-19, mRNA, LNP-S, bivalent, PF, 30 mcg/0.3 mL dose 03/30/2022 completed REGI agustin, [facility] 02/04/2023 16:43:22 influenza, unspecified formulation 02/11/2015 [facility] 02/04/2023 16:43:22 Tdap 06/24/2015 completed REGI agustin, [facility] 02/04/2023 16:43:22 Tdap 09/30/2021 completed REGI agustin, [facility] 02/04/2023 16:43:22 Tdap 01/13/2022 [facility] 02/04/2023 16:43:22 Influenza, split virus, trivalent, PF 01/29/2017 completed REGI agustin, [facility] 02/04/2023 16:43:22 Hep A, adult 03/10/2019 completed REGI agustin, [facility] 02/04/2023 16:43:22 Hep A, adult 05/05/2019 completed REGI agustin, [facility] 02/04/2023 16:43:22 Influenza, split virus, quadrivalent, PF 07/01/2018 completed REGI agustin, [facility] 02/04/2023 16:43:22 Influenza, split virus, quadrivalent, PF 02/05/2019 completed REGI agustin, [facility] 02/04/2023 16:43:22 Influenza, split virus, quadrivalent, PF 02/14/2022 completed REGI agustin, [facility] 02/04/2023 16:43:22 COVID-19, mRNA, LNP-S, PF, 50 mcg/0.5 mL 02/26/2023 completed [facility]GI ag[facility]in [facility] 06/01/2023 19:12:57 Influenza, split virus, quadrivalent, PF 02/05/2023 completed [facility] 02/05/2023 11:06:09 Past Encounters Encounter ID Performer Location Encounter Start Date Encounter Closed Date Diagnosis/Indication Diagnosis SNOMED-CT Code Diagnosis ICD10 Code Diagnosis Note [id number] Christopher Arcos MD [facility] ([facility]) [address] [place] [phone] 11/01/2022 09:45:19 11/01/2022 12:47:18 Lower urinary tract symptoms due to benign prostatic hypertrophy 0154259664 9101 N40.1 Parkinson's disease 4904 9000 G20 Psychotic disorder 91741 001 F29 Bipolar disorder 5947517 4 F31.9 Essential hypertension 64988290 I10 History of myocardial infarction 812767314 I25.2 [id number] Christopher Arcos MD [facility] ([facility]) [address] [place] [phone] 12/20/2022 09:35:24 12/20/2022 10:38:21 Essential hypertension 99824177 I10 Benign pro static hyperplasia 410621147 N40.1 Schizophrenia 48235456 F 20.9 Bipolar disorder 2820087 4 F31.9 Hyperglycemia 03230851 R 73.9 Allergic rhinitis 236933 04 J30.9 Acquired hearing loss 72 5019436 H91.90 [id number] Christopher Arcos MD [facility] ([facility]) [address] [place] [phone] 02/05/2023 09:36:55 02/05/2023 10:48:47 Benign prostatic hyperplasia 174070294 N40.1 Patient is awaiting urology evaluation and treatment. Essential hypertension 48483657 I10 Blood pressure is mildly elevated today.. Patient will monitor blood pressure and report if unable to control or if they develop new symptoms. Schizophrenia 01779357 F 20.9 Patient is doing well on current medication s. Continue follow-ups with psychiatry [id number] Christopher Arcos MD [facility] ([facility]) [address] [place] [phone] 04/02/2023 09:37:06 04/02/2023 15:33:03 Adult health examination 556441141 Z00.00 We will check labs today. Patient has been having some glucose issues. Patient was encouraged to eat a well-terrell isaias diet and exercise 30 minutes daily. Essential hypertension 90288765 I10 Pressure not well controlled . Start lisinopril . Patient was encouraged to have his blood pressure checked routinely. Hyperlipidemia 17453049 E78.5 Fear of heights 22507948 1 F40.241 We will provide a letter stating that he has fair hygiene to consider weaning him to a lower level apartment if available. Health Concerns Section Related Observation LastModified by Organization Detai ls LastModified Time None Recorded Concern Status LastModified by Organization Details LastModified Time None Recorded Advance Directives Directive None Recorded Payers Encounter Date Sequence Insurance Name Policy Number Policy Franklin Covered Member ID Franklin Member ID Guarantor Name 11/01/2022 1 [place] - PPO) [id number] Benedicto Amaral [id number] Benedicto Amaral 11/01/2022 2 [place] Benedicto Amaral [id number] Benedicto Amaral 12/20/2022 1 [employer] DV[place]AGE - [place]MO) Benedicto Amaral [id number] Benedicto Amaral 12/20/2022 2 [place] Benedicto Amaral [id number] Benedicto Amaral 02/05/2023 1 [employer] DVANTAGE - HMO) Benedicto Amaral [id number] Benedicto Amaral 02/05/2023 2 [place] Benedicto Amaral [id number] Benedicto Amaral 04/02/2023 1 [facility] [place] DV[place] - [place]MO) Benedicto Amaral [id number] Benedicto Amaral 04/02/2023 2 [place] Benedicto Amaral [id number] Benedicto Amaral Notes Date Note Type Note Provider Name and Address Organization Details Recorded Time 11/01/2022 text/html This is a 62-year-old gentleman that comes in today to establish care. Patient has a significant mental health issues and sees [facility] for psychiatry care. Mental status has been stable. Patient has been told he has a Parkinson's disease but has not seen a neurologist for quite some time. Patient also has prostate issues with lower urinary tract symptoms and is referral to urology. Patient states that he has been stable on current medications. Patient states that he had a heart attack when he was younger and has had some high blood pressure but this has been controlled on current medications. Christopher Arcos MD [address] [place] [address], [phone], [facility] 11/01/2022 12:29:11 12/20/2022 text/html This is a 62-year-old gentleman that comes in today for follow-up. Patient continues to see psychiatry for his mental health. Patient reports that his blood pressure typically does well on current medications. The patient continues to have significant prostate issues and has recently seen urologist midlevel at [place]. Patient has been told that he likely needs prostate surgery given his significant lower urinary tract symptoms. Patient has been told that he has had elevated blood sugars but is unsure if he is truly diabetic or just prediabetic. Patient also has some hearing impairment and states that he has difficulty hearing people at the door when he is in another room. He states he needs a letter so the mechanical engineering manager will install a doorbell for him. Christopher Arcos MD [address] [place] [address], [phone], [facility] 12/20/2022 10:29:43 02/05/2023 text/html This is a 62-year-old gentleman that comes in today for routine follow-up. Patient denies any acute concerns today. Patient states that everything has been stable. Patient states that he has his blood pressure checked and states that it has been within normal limits. Christopher Arcos MD [address] [place] [address] [place], [id number], [facility], [place]. 02/05/2023 10:44:23 04/02/2023 text/html Get Santos is a 63-year-old gentleman that comes in today for routine follow-up. The patient denies any sick arms. The patient has not had blood work for quite some time. The patient's blood pressure has been elevated. Patient also states that he has been struggling at his apartment. The patient states that he is at a upper floor and has difficulty due to fear of heights. Management at the office states that they would consider a lower level apartment if he had a note. She continues to see behavioral health and psychiatry for his underlying mental health issues. Christopher Arcos MD [address] [place], [phone], [facility] [place], [place] 04/02/2023 15:38:37
--- OUTSIDE RECORDS SUMMARY | 2024-09-06 04:33 | XMS_ITS | Continuity of Care Document ---
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, [address] [id number] 7208230SO- [facility], [place], [place], [address], [place] tel:[phone] [facility] No Information 2 Dakota Anand. [address] [place], [address], [place]. tel:[phone] [facility], [address] Povpg648W7 3052168UJ- [place], [address], [place] tel:[phone] [facility] F2 Medication Management (chief complaint)Eder izoaffective disorder (chief complaint)Gen eralized Anxiety Disorder (chief complaint) Schizoaffect filemon disorder, bipolar typeGenerali zed anxiety disorder Sep- 2 Kendrick Cabrera. [address] [place], [place], [address], [place]. tel:[phone] Referring Provider: Deborah Marks, [address] [place], [address] . tel:[phone] [facility], [address] Gtjna007E6 7560031SR- [place], [address], [place] tel:[phone] Vision F1 Encounter for fit/adjst of spectacles and contact lenses Jan- 2 Genia Aponte. [address], [place], [address], [place]. tel:[phone] Referring Provider: Fay Cormier , [address] [place], [address] . tel:[phone] [facility], [address] Uufwa309Z2 6040321XV- [place], [address], [place] tel:[phone] [facility] No Information Jan-0 2 No Information [facility], [address] Dgciy368W1 0870060SQAmiss[place], [place], [address], [place] tel:[phone] [facility] F2 Schizoaffect filemon disorder, bipolar type Jan- 2 Kendrick Cabrera. [address] [place], [place], [address], [place]. tel:[phone] Referring Provider: Deborah Marks, [address] [place], [address] . tel:[phone] OFFICE/OUTPA TIENT VISIT EST [facility], [address] Mgyco004M1 7924396PJ- [place], [address], [place] tel:[phone] [facility] Est care (chief complaint) Hypertension PrediabetesM ixed hyperlipidem iaEncounter for immunization Jan-0 2 Horacio Blackman. [address] [place], [address], [place]. tel:[phone] Referring Provider: Hiral Leonard, [address] [place], [address]. tel:[phone] [facility], [address] Itqja480V5 8845821UQ- [place], [address], [place] tel:[phone] Behavioral [facility] F2 Medication Management (chief complaint)Eder izoaffective disorder (chief complaint)Gen eralized Anxiety Disorder (chief complaint) Schizoaffect filemon disorder, bipolar typeGenerali zed anxiety disorder 2 Kendrick Cabrera. [address] [place], [place], [address], [place]. tel:[phone] Referring Provider: Deborah Marks, [address] [place], [address] . tel:[phone] [facility], [address] Ogmcp904J5 7076409LY- [place], [address], [place] tel:[phone] Vision F1 blurry vision (chief complaint) Hypermetropi a, bilateralReg ular astigmatism, bilateralPre sbyopiaAge-r elated nuclear cataract, bilateral 2 Genia Aponte. [address], [place], [address], [place]. tel:[phone] Referring Provider: Fay Cormier , [address] [place], [address] . tel:[phone] [facility], [address] Psbwq109T7 3436568POAmissville, [place], [address], [place] tel:[phone] [facility] F2 Medication Management (chief complaint)Eder izophrenia (chief complaint)Gen eralized Anxiety Disorder (chief complaint) Undifferenti ated schizophreni aGeneralized anxiety disorder 2 Kendrick Cabrera. [address] [place], [place], [address], [place]. tel:[phone] Referring Provider: Deborah Marks, [address] [place], [address] . tel:[phone] [facility], [address] [place] [address], [address], [place] tel:[phone] Behavior[facility] F2 Schizoaffect filemon disorder, bipolar type 2 Kendrick Cabrera. [address] [place], [place], [address], [place]. tel:[phone] Referring Provider: Deborah Marks, [address] [place], [address] . tel:[phone] [facility], [address] [place] [address], [address], [place] tel:[phone] Behavioral Medicine F2 Medication Management (chief complaint)Anx iety (chief complaint)und ifferentiated schizophrenia (chief complaint) Generalized anxiety disorderUndi fferentiated schizophreni a 2 Kendrick Cabrera. [address] [place], [place], [address], [place]. tel:[phone] Referring Provider: Deborah Marks, [address] [place], [address] . tel:[phone] OFFICE/OUTPA TIENT VISIT EST [facility], [address] Ahwmn226Y7 1274174JEAmissville, [place], [address], [place] tel:[phone] Behavioral [facility] F2 Hyperglycemia (chief complaint) Hyperglycemi aType 2 diabetes mellitus without complication s 2 Dakota Michel. [address] [place], [address], [place]. tel:[phone] Referring Provider: Anand Duncan, [address] [place], [address]. tel:[phone] [facility], [address] Dqczc759C2 3766018WHAmissville, [place], [address], [place] tel:[phone] [facility] F2 Medication Management (chief complaint)Eder izophrenia (chief complaint)Gen eralized Anxiety Disorder (chief complaint) Undifferenti ated schizophreni aGeneralized Anxiety Disorder 2 Kendrick Cabrera. [address] [place], [place], [address], [place]. tel:[phone] Referring Provider: Deborah Marks, [address] [place], [address] . tel:[phone] OFFICE/OUTPA TIENT VISIT, [facility], [address] Invyk817I4 2382227EGAmissville, [place], [address], [place] tel:[phone] [facility] F2 EPS (chief complaint) Extrapyramid al and movement disorder 2 Dakota Michel. [address] [place], [address], [place]. tel:[phone] Referring Provider: Anand Duncan, [address] [place], [address]. tel:[phone] OFFICE/OUTPA TIENT VISIT [facility], [address] Euson259V5 5336002FIAmissville, [place], [address], [place] tel:[phone] Behavioral [facility] F2 Counseling (chief complaint) Counseling and coordination of careHypergly cemiaHyponat remia 2 Dakota Michel. [address] [place], [address], [place]. tel:[phone] Referring Provider: Anand Duncan, [address] [place], [address]. tel:[phone] [facility], [address] Smfyj547B8 9594486FQ- [place], [place], [address], [place] tel:[phone] Behavior[facility] F2 Medication Management (chief complaint)Eder izophrenia (chief complaint)Gen eralized Anxiety Disorder (chief complaint) Undifferenti ated schizophreni aGeneralized Anxiety Disorder 2 Kendrick Cabrera. [address] [place], [place], [address], [place]. tel:[phone] Referring Provider: Deborah Marks, [address] [place], [address] . tel:[phone] OFFICE/OUTPA TIENT VISIT [facility], [address] Xujwi197L6 0181363VCAmissville, [place], [address], [place] tel:[phone] Behavioral Medicine F2 Follow Up (chief complaint) Benign prostatic hyperplasia with urinary frequencySch izophrenia, unspecified type 2 Dakota Michel. [address] [place], [address], [place]. tel:[phone] Referring Provider: Anand Duncan, [address] [place], [address]. tel:[phone] OFFICE/OUTPA TIENT VISIT, [facility], [address] Grvca548V5 1307444NDAmissville, [place], [address], [place] tel:[phone] [facility] Weakness (chief complaint) WeaknessChro lizet cough 2 Bina Aponte. [address], [place], [address], [place]. tel:[phone] Referring Provider: Fadi Curran, [address] [place], [address] . tel:[phone] OFFICE/OUTPA TIENT VISIT EST [facility], [address] Qjwxe373P2 1535062ZQ- [place], [address], [place] tel:[phone] Behavioral [facility] F2 Several Concerns (chief complaint) Acute coughSchizoa ffective disorder, bipolar typePrediabe tesBenign prostatic hyperplasia with urinary frequencyExt rapyramidal and movement disorderRash and other nonspecific skin eruptionHema turia, unspecified 2 Dakota Michel. [address] [place], [address], [place]. tel:[phone] Referring Provider: Anand Duncan, [address] [place], [address]. tel:[phone] [facility], [address] Pgcko816Z2 6691606JW- [place], [address], [place] tel:[phone] [facility] F2 Schizoaffect filemon disorder, bipolar type 2 Kendrick Cabrera. [address] [place], [place], [address], [place]. tel:[phone] Referring Provider: Deborah Marks, [address] [place], [address] . tel:[phone] [facility], [address] Lacmr277Z0 0461193BE- [place], [address], [place] tel:[phone] [facility] F2 Medication Management (chief complaint)Eder izophrenia (chief complaint) Undifferenti ated schizophreni aGeneralized Anxiety Disorder 2 Kendrick Cabrera. [address] [place], [place], [address], [place]. tel:[phone] Referring Provider: Deborah Marks, [address] [place], [address] . tel:[phone] [facility], [address] Jruwg749H7 6029192ME- [place], [address], [place] tel:[phone] [facility] No Information 2 Jo Portillo. [address], [place], [address], [place]. tel:[phone] Referring Provider: Bandar Osorio, [address] [place], [address] . tel:[phone] OFFICE/OUTPA TIENT VISIT, [facility], [address] Bpvyg283L2 8849786VC- [place], [address], [place] tel:[phone] [facility] cough (chief complaint) CoughNasal congestion with rhinorrhea 2 Jo Portillo. [address], [place], [address], [place]. tel:[phone] Referring Provider: Bandar Osorio, [address] [place], [address] . tel:[phone] PSYTX PT&/FAMILY 30 MINUTES [facility], [address] Sosxa882H6 7649573VI- [place], [place], [address], [place] tel:[phone] [facility] Schizoaffect filemon disorder, bipolar type 2 Myron Houston. [address] [facility] , [place], [place], [address], [place]. tel:[phone] Referring Provider: Celso Sanches, [address] [place], [address] . tel:[phone] OFFICE/OUTPA TIENT VISIT [facility], [address] Txgvh176S1 5721052ZS- [place], [address], [place] tel:[phone] [facility] F2 Tremors (chief complaint) Schizoaffect filemon disorder, bipolar typeType 2 diabetes mellitus without complication , without long-term current use of insulinExtra pyramidal and movement disorderEsse ntial (primary) hypertension Other joint terminal attack controller (current) drug therapyPredi abetesTremor , unspecified Apr-0 2 Dakota Michel. [address] [place], [address], [place]. tel:[phone] Referring Provider: Anand Duncan, [address] [place], [address]. tel:[phone] OFFICE/OUTPA TIENT VISIT EST [facility], [address] Nopab402K5 4319759WDAmissville, [place], [address], [place] tel:[phone] Behavioral [facility] F2 URI (chief complaint) Acute bronchitis due to other specified organisms Mar-3 2 Dakota Michel. [address] [place], [address], [place]. tel:[phone] Referring Provider: Anand Duncan, [address] [place], [address]. tel:[phone] [facility], [address] Podsv457N6 5604708ZHAmissville, [place], [address], [place] tel:[phone] Behavioral [facility] F2 new psych (chief complaint) Schizoaffect filemon disorder, bipolar type Mar-3 2 No Information OFFICE/OUTPA TIENT VISIT EST [facility], [address] Jlmji665A4 9177815WUPortsmouth, [place], [address], [place] tel:[phone] Behavioral [facility] F2 Injection (chief complaint) Schizophreni a, unspecified type Mar-2 2 Dakota Michel. [address] [place], [address], [place]. tel:[phone] Referring Provider: Anand Duncan, [address] [place], [address]. tel:[phone] PSYTX PT&/FAMILY 30 MINUTES [facility], [address] Otmez310U3 5318556BL- [place], [address], [place] tel:[phone] [facility] Schizophreni a, unspecified type 2 Lyle Blunt. [address], [place], [address], [place]. tel:[phone] Referring Provider: Merlene Alvarenga, [address] [place], [address] . tel:[phone] OFFICE/OUTPA TIENT VISIT EST [facility], [address] Wumcs799Q5 2238302BEPortsmouth, [place], [address], [place] tel:[phone] [facility] cough/ congestion (chief complaint)htn (chief complaint) Acute coughNasal congestion with rhinorrheaFl uOther schizophreni aHypertensio n 2 Jo Portillo. [address], [place], [address], [place]. tel:[phone] Referring Provider: Bandar Osorio, [address] [place], [address] . tel:[phone] [facility], [address] Adgml196I4 9200829PZAmissville, [place], [address], [place] tel:[phone] [facility] No Information 2 Marjorie Moreno. [address] [place], [place], [address], [place]. tel:[phone] Referring Provider: Tiffanie Amador, [address] [place], [address] . tel:[phone] [facility], [address] Utczt259Z4 6124541MIPortsmouth, [place], [address], [place] tel:[phone] [facility] No Information 1 Evan Roque. [address], [place], [address], [place]. tel:[phone] Referring Provider: Mya Gusman, [address] [place], [address] . tel:[phone] OFFICE/OUTPA TIENT VISIT, [facility], [address] Sooix897L2 8598707YRAmissville, [place], [address], [place] tel:[phone] Behavioral [facility] F2 Schizophreni a, unspecified type 1 Evan Roque. [address], [place], [address], [place]. tel:[phone] Referring Provider: Mya Gusman, [address] [place], [address] . tel:[phone] OFFICE/OUTPA TIENT VISIT [facility], [address] Sthcg197D7 5839293RSAmissville, [place], [address], [place] tel:[phone] [facility] prediabetes (chief complaint)Silvia k pain (chief complaint)BPH (chief complaint) PrediabetesT ype 2 diabetes mellitus without complication , without long-term current use of insulinChron ic bilateral low back pain with right-sided sciaticaOthe r chronic painBenign prostatic hyperplasia with urinary frequency 1 Evan Roque. [address], [place], [address], [place]. tel:[phone] Referring Provider: Mya Gusman, [address] [place], [address] . tel:[phone] [facility], [address] Zwpbv127K9 9513075MOAmissville, [place], [address], [place] tel:[phone] [facility] No Information 1 Bina Aponte. [address], [place], [address], [place]. tel:[phone] Referring Provider: Fadi Curran, [address] [place], [address] . tel:[phone] OFFICE/OUTPA TIENT VISIT, EST [facility], [address] Kqkfk274B6 1425223YB- [facility], [place], [place], [address], [place] tel:[phone] [facility] Right upper leg pain / burning for the past (chief complaint) Right sided sciatica Feb-2 1 Jaren Larson. [address], [place], [address], [place]. tel:[phone] Referring Provider: Marsha Eastman, [address] [place], [address] . tel:[phone] [facility], [address] Scvhu044O0 0568867SWAmissville, [place], [address], [place] tel:[phone] [facility] F2 Schizophreni a, unspecified type Feb- 1 Evan Roque. [address], [place], [address], [place]. tel:[phone] Referring Provider: Mya Gusman, [address] [place], [address] . tel:[phone] [facility], [address] Wqory381I9 3260138WK- [place], [address], [place] tel:[phone] Family Medicine F1 Change of job 0 1 Health [facility]. [address], [place], [address], [place]. tel:[phone] [facility], [address] Elows291B1 2708320FG- [place], [address], [place] tel:[phone] [facility] F2 Schizophreni a, unspecified type Jan- 1 Evan Roque. [address], [place], [address], [place]. tel:[phone] Referring Provider: Mya Gusman, [address] [place], [address] . tel:[phone] OFFICE/OUTPA TIENT VISIT, [facility], [address] Acidc654V9 7142977SZ- [place], [address], [place] tel:[phone] [facility] Earache (chief complaint) Acute otitis externa of right ear, unspecified type 1 Evan Roque. [address], [place], [address], [place]. tel:[phone] Referring Provider: Mya Gusman, [address] [place], [address] . tel:[phone] OFFICE/OUTPA TIENT VISIT, [facility], [address] Ejpdf206B3 6460844IHAmissville, [place], [address], [place] tel:[phone] [facility] Schizophreni a, unspecified type 1 Evan Roque. [address], [place], [address], [place]. tel:[phone] Referring Provider: Mya Gusman, [address] [place], [address] . tel:[phone] [facility], [address] Ymdfa885G3 6748681QZAmissville, [place], [address], [place] tel:[phone] Family Medicine F1 Cough 1 Med [facility]. [address], [place], [address], [place]. tel:[phone] Referring Provider: Theron Jovel, [address] [place], [address] . tel:[phone] OFFICE/OUTPA TIENT VISIT [facility], [address] Xjakk349B1 3471469ZUPortsmouth, [place], [address], [place] tel:[phone] [facility] Viral syndrome (chief complaint)cou gh, congestion x 1 wk (chief complaint) Contact with and (suspected) exposure to other viral communicable diseasesVira l URI 1 [facility]. [address], [place], [address], [place]. tel:[phone] Referring Provider: Theron Jovel, [address] [place], [address] . tel:[phone] [facility], [address] Pnfip749L1 4696981WYAmissville, [place], [address], [place] tel:[phone] Family [facility] F1 Unemployment 1 [facility]. [address], [place], [address], [place]. tel:[phone] [facility], [address] Xbrbo421U9 7538867ESAmissville, [place], [address], [place] tel:[phone] [facility] F2 No Information 1 Evan Roque. [address], [place], [address], [place]. tel:[phone] Referring Provider: Mya Gusman, [address] [place], [address] . tel:[phone] [facility], [address] Wfadu475U7 9169456JHAmissville, [place], [address], [place] tel:[phone] [facility] f/u (chief complaint)dep ression (chief complaint) Schizophreni a, unspecified type 1 Evan Roque. [address], [place], [address], [place]. tel:[phone] Referring Provider: Mya Gusman, [address] [place], [address] . tel:[phone] [facility], [address] Ioplz438U7 2345218VFAmissville, [place], [address], [place] tel:[phone] [facility] Schizophreni a, unspecified type 1 Gordon Mya. [address], [place], [address], [place]. tel:[phone] Referring Provider: Mya Gusman, [address] [place], [address] . tel:[phone] [facility], [address] Xemzs443Q3 2965644GXAmissville, [place], [address], [place] tel:[phone] [facility] Schizoaffecti ve disorder (chief complaint) Hypo-osmolal ity and hyponatremia Other long-term (current) drug therapyMixed hyperlipidem iaSchizophre michaela, unspecified type 1 Evan Mya. [address], [place], [address], [place]. tel:[phone] Referring Provider: Mya Gusman, [address] [place], [address] . tel:[phone] [facility], [address] Yoxdp965J0 1723707QFAmissville, [place], [address], [place] tel:[phone] [facility] Schizophreni a, unspecified type 1 Evan Roque. [address], [place], [address], [place]. tel:[phone] Referring Provider: Mya Gusman, [address] [place], [address] . tel:[phone] OFFICE/OUTPA TIENT VISIT, EST [facility], [address] Lfcuk075X6 0605163CQAmissville, [place], [address], [place] tel:[phone] [facility] knots on legs (chief complaint) Worried well 1 Evan Roque. [address], [place], [address], [place]. tel:[phone] Referring Provider: Mya Gusman, [address] [facility], [place], [address] . tel:[phone] [facility], [address] Btkxv541P0 9212919XP- [facility], [place], [place], [address], [place] tel:[phone] [facility] Schizophreni a, unspecified type Apr-2 1 Evan Mya. [address], [place], [address], [place]. tel:[phone] Referring Provider: Mya Gusman, [address] [facility], [place], [address] . tel:[phone] [facility], [address] Fyiga040M8 8305012DJ- [place], [address], [place] tel:[phone] [facility] Schizophrenia (chief complaint) Schizophreni a, unspecified type Mar-2 1 Evan Mya. [address], [place], [address], [place]. tel:[phone] Referring Provider: Mya Gusman, [address] [place], [address] . tel:[phone] OFFICE/OUTPA TIENT VISIT, [facility], [address] Zenkq184N1 7511134WX- [facility], [place], [place], [address], [place] tel:[phone] [facility] Dizziness (chief complaint) Dizzy Mar-0 1 Evan Mya. [address], [place], [address], [place]. tel:[phone] Referring Provider: Mya Gusman, [address] [place], [address] . tel:[phone] [facility], [address] Fcjcj017L8 4439356YMWame[facility], [place], [place], [address], [place] tel:[phone] [facility] Schizophreni a, unspecified type Mar-0 1 Gordon Mya. [address], [place], [address], [place]. tel:[phone] Referring Provider: Mya Gusman, [address] [place], [address] . tel:[phone] [facility], [address] Lhbvq079Q7 3797357ETPortsmouth, [place], [address], [place] tel:[phone] [facility] Schizophreni a, unspecified type 1 Gordon Mya. [address], [place], [address], [place]. tel:[phone] Referring Provider: Mya Gusman, [address] [place], [address] . tel:[phone] [facility], [address] Ycdwu084I6 3294420EMAmissville, [place], [address], [place] tel:[phone] Family [facility] F1 Schizophreni a, unspecified type 0 Gordon Mya. [address], [place], [address], [place]. tel:[phone] Referring Provider: Mya Gusman, [address] [place], [address] . tel:[phone] [facility], [address] Bbyhs985G4 3452130IEAmissville, [place], [address], [place] tel:[phone] [facility] F2 No Information 0 Gordon Mya. [address], [place], [address], [place]. tel:[phone] Referring Provider: Mya Gusman, [address] [place], [address] . tel:[phone] OFFICE/OUTPA TIENT VISIT, EST [facility], [address] Qchoj014I4 7006168YO- [place], [address], [place] tel:[phone] [facility] Referral for urologist (chief complaint)bed bugs (chief complaint)Blo od in stool (chief complaint) Urinary frequencyBlo od in stoolInfesta tion by bed bugOther long-term (current) drug therapyPredi abetesBenign prostatic hyperplasia with urinary frequencyOth er microscopic hematuria Apr-0 7-202 0 Evan Roque. [address], [place], [address], [place]. tel:[phone] Referring Provider: Mya Gusman, [address] [place], [address] . tel:[phone] [facility], [address] Zqbev412G2 6962949PMAmissville, [place], [address], [place] tel:[phone] [facility] Schizophreni a, unspecified type 0 0 Evan Roque. [address], [place], [address], [place]. tel:[phone] Referring Provider: Mya Gusman, [address] [place], [address] . tel:[phone] OFFICE/OUTPA TIENT VISIT EST [facility], [address] Envhg953S6 3584807IV- [place], [address], [place] tel:[phone] [facility] Rash (chief complaint) Rash and other nonspecific skin eruption Mar-0 2202 0 Bina Aponte. [address], [place], [address], [place]. tel:[phone] Referring Provider: Fadi Curran, [address] [place], [address] . tel:[phone] [facility], [address] Uydow136W1 2359631ADPortsmouth, [place], [address], [place] tel:[phone] [facility] Schizophreni a, unspecified type Feb 0 Gordon Mya. [address], [place], [address], [place]. tel:[phone] Referring Provider: Mya Gusman, [address] [place], [address] . tel:[phone] [facility], [address] Uhwie167V6 4081115PG- [place], [address], [place] tel:[phone] [facility] Schizophreni a, unspecified type Sep-3 0 Gordon Mya. [address], [place], [address], [place]. tel:[phone] Referring Provider: Mya Gusman, [address] [place], [address] . tel:[phone] [facility], [address] Igika587N7 8131687CHAmissville, [place], [address], [place] tel:[phone] [facility] Schizophrenia (chief complaint) Schizophreni a, unspecified typeGenerali zed Anxiety Disorder 0 Gordon Mya. [address], [place], [address], [place]. tel:[phone] Referring Provider: Mya Gusman, [address] [place], [address] . tel:[phone] [facility], [address] [id number]- [place], [address], [place] tel:[phone] [facility] Generalized Anxiety Disorder Nov- 0 Evan Mya. [address], [place], [address], [place]. tel:[phone] Referring Provider: Mya Gusman, [address] [place], [address] . tel:[phone] [facility], [address] [id number] 7772169ISAmissville, [place], [address], [place] tel:[phone] Family Medicine F1 Schizophreni a, unspecified type 0 Gordon Mya. [address], [place], [address], [place]. tel:[phone] Referring Provider: Mya Gusman, [address] [place], [address] . tel:[phone] [facility], [address] Cjpcj403Y3 6916683JHAmiss[place], [place], [address], [place] tel:[phone] Family Medicine F2 schizophrenia (chief complaint) Schizophreni a, unspecified typeGenerali zed Anxiety Disorder 0 Gordon Mya. [address], [place], [address], [place]. tel:[phone] Referring Provider: Mya Gusman, [address] [place], [address] . tel:[phone] [facility], [address] [id number] 3079964LJPortsm[place], [place], [address], [place] tel:[phone] Family Medicine F1 hypertension (chief complaint) No Information 0 Gordon Mya. [address], [place], [address], [place]. tel:[phone] Referring Provider: Mya Gusman, [address] [place], [address] . tel:[phone] [facility], [address] Ebyte685F7 8088723EUPortsmouth, [place], [address], [place] tel:[phone] Family Medicine F1 Schizophrenia (chief complaint) Schizophreni a, unspecified typeFrequenc y of micturition 0 Gordon Mya. [address], [place], [address], [place]. tel:[phone] Referring Provider: Mya Gusman, [address] [place], [address] . tel:[phone] OFFICE/OUTPA TIENT VISIT, EST [facility], [address] [id number]- [place], [address], [place] tel:[phone] Family Medicine F1 Blood in urine (chief complaint) Frequency of micturition Aug-2 0 Evan Roque. [address], [place], [address], [place]. tel:[phone] Referring Provider: Mya Gordon R, [address] [place], [address] . tel:[phone] [facility], [address] [id number] 1486305DXAmissville, [place], [address], [place] tel:[phone] Family Medicine F1 Hematuria, unspecified 0 Cale Hernandez. [address], [place], [address], [place]. tel:[phone] Referring Provider: David Flores, [address] [place], [address] . tel:[phone] [facility], [address] Eionv855X7 6016811GDAmissville, [place], [address], [place] tel:[phone] Behavioral Medicine F2 No Information 0 No Information OFFICE/OUTPA TIENT VISIT EST [facility], [address] [id number] 7450054VVAmissville, [place], [address], [place] tel:[phone] [facility] F2 Follow Up of Mood (chief complaint)Fol low Up of Go over labs (chief complaint)Fol low Up of BPH (chief complaint)Fol low Up of HTN (chief complaint)Fol low Up of Medication Refills (chief complaint) Benign prostatic hyperplasia with urinary frequencyFre quency of micturitionG eneralized Anxiety DisorderHypo natremiaHype rtensionMixe d hyperlipidem iaSchizophre michaela, unspecified typeOther long-term (current) drug therapy Jul-3 0 Aquilino Potter. [address] [place], [place], [address], [place]. tel:[phone] Referring Provider: Abbey Rolle, [address] [place], [address] . tel:[phone] [facility], [address] Eylmy250F7 3992863DXAmissville, [place], [address], [place] tel:[phone] Behavioral Medicine F2 Mixed hyperlipidem iaEssential (primary) hypertension Other long-term (current) drug therapy Jul-2 0 No Information OFFICE/OUTPA TIENT VISIT, EST [facility], [address] [id number] 8735076SUAmissville, [place], [address], [place] tel:[phone] Behavior[facility] F2 Schizophrenia (chief complaint)MAIDA (chief complaint)med ication management (chief complaint) Schizophreni a, unspecified type Jul-2 0 No Information [facility], [address] Zusab603P5 7531199WSRillton, [place], [address], [place] tel:[phone] [facility] Schizophreni a, unspecified type Jul-0 0 Evan Roque. [address], [place], [address], [place]. tel:[phone] Referring Provider: Mya Gusman, [address] [place], [address] . tel:[phone] [facility], [address] Zssmy307F3 3089691ZPAmissville, [place], [address], [place] tel:[phone] [facility] Schizophreni a, unspecified type Fe- 0 Evan Roque. [address], [place], [address], [place]. tel:[phone] Referring Provider: Mya Gusman, [address] [place], [address] . tel:[phone] [facility], [address] [id number] 5185433HW- [facility], [place], [place], [address], [place] tel:[phone] [facility] No Information 0 Evan Roque. [address], [place], [address], [place]. tel:[phone] Referring Provider: Mya Gusman, [address] [place], [address] . tel:[phone] OFFICE/OUTPA TIENT VISIT, [facility], [address] Qnwkn212P9 1659126KCPortsmouth, [place], [address], [place] tel:[phone] [facility] Shortness of breath (chief complaint) COPD 0 Evan Roque. [address], [place], [address], [place]. tel:[phone] Referring Provider: Mya Gusman, [address] [place], [address] . tel:[phone] [facility], [address] Cxduy768Y5 8464911IDPortsmouth, [place], [address], [place] tel:[phone] [facility] No Information 0 Evan Roque. [address], [place], [address], [place]. tel:[phone] Referring Provider: Mya Gusman, [address] [place], [address] . tel:[phone] [facility], [address] Nzkcr603F5 3307161DDPortsmouth, [place], [address], [place] tel:[phone] [facility] Follow Up of Schizophrenia (chief complaint) Schizophreni a, unspecified typeGenerali zed Anxiety Disorder May-0 9-202 0 Gordon Mya. [address], [place], [address], [place]. tel:[phone] Referring Provider: Mya Gusman, [address] [place], [address] . tel:[phone] [facility], [address] Nhtmw850O6 7999990ZTAmissville, [place], [address], [place] tel:[phone] [facility] Schizophreni a, unspecified type 0 2-202 0 Gordon Mya. [address], [place], [address], [place]. tel:[phone] Referring Provider: Mya Gusman, [address] [place], [address] . tel:[phone] [facility], [address] Tpjtu121P3 1082821TKAmissville, [place], [address], [place] tel:[phone] [facility] (chief complaint) Other long-term (current) drug therapySchiz ophrenia, unspecified typeGenerali zed Anxiety Disorder Apr-0 201 9 Gordon Mya. [address], [place], [address], [place]. tel:[phone] Referring Provider: Mya Gusman, [address] [place], [address] . tel:[phone] [facility], [address] Mmqfj553M3 0523628YXAmissville, [place], [address], [place] tel:[phone] [facility] Schizophreni a, unspecified type 0 9 Gordon Mya. [address], [place], [address], [place]. tel:[phone] Referring Provider: Mya Gusman, [address] [place], [address] . tel:[phone] OFFICE/OUTPA TIENT VISIT [facility], [address] [id number] 2910777SWPortsmouth, [place], [address], [place] tel:[phone] [facility] Est. Care (chief complaint)Mus culoskeletal pain (chief complaint)Tamela rrhea (chief complaint) Diarrhea, unspecified typeSciatica of left sideSchizoph herb, unspecified typeOther joint terminal attack controller (current) drug therapy 9 Evan Roque. [address], [place], [address], [place]. tel:[phone] Referring Provider: Mya Gusman, [address] [place], [address] . tel:[phone] OFFICE/OUTPA TIENT VISIT, [facility], [address] Lxepn462S2 8413495TNAmissville, [place], [address], [place] tel:[phone] Family Medicine F1 Body aches, nausea, (chief complaint) Viral syndrome 9 No Information OFFICE/OUTPA TIENT VISIT, [facility], [address] Epxzi318U6 6639718CCAmissville, [place], [address], [place] tel:[phone] Family Medicine F1 Hospital F/U (chief complaint) Hospital discharge follow-up 9 No Information [facility], [address] Ktmvy139Z8 3327741GYAmissville, [place], [address], [place] tel:[phone] Family Medicine F1 Generalized Anxiety Disorder 9 No Information OFFICE/OUTPA TIENT VISIT, [facility], [address] Xzxiz596D9 0303807GCAmissville, [place], [address], [place] tel:[phone] Family Medicine F1 Exam diarrhea (chief complaint) Diarrhea, unspecified type 9 Bina Aponte. [address], [place], [address], [place]. tel:[phone] Referring Provider: Fadi Curran, [address] [place], [address] . tel:[phone] OFFICE/OUTPA TIENT VISIT, [facility], [address] Ylzll960Z2 1604352UKAmissville, [place], [address], [place] tel:[phone] Family Medicine F1 Diarrhea (chief complaint) Diarrhea, unspecified type Feb-0 7 9 No Information [facility], [address] Cgxgs234H1 9023779YZAmissville, [place], [address], [place] tel:[phone] Family Medicine F1 No Information Feb-0 9 No Information [facility], [address] Aavnl891T2 6674251OYAmissville, [place], [address], [place] tel:[phone] Family Medicine F1 No Information Feb-0 9 Jose D Armstrong. [address], [place], [address], [place]. tel:[phone] Referring Provider: Nathaniel Jeffery, [address] [place], [address] . tel:[phone] OFFICE/OUTPA TIENT VISIT, [facility], [address] Dccek134J9 5955505JUAmissville, [place], [address], [place] tel:[phone] Family Medicine F1 Diarrhea (chief complaint) Diarrhea, unspecified typeTremors of nervous system Sep-3 0 9 No Information OFFICE/OUTPA TIENT VISIT, [facility], [address] Topzx453Q4 9338992FYAmissville, [place], [address], [place] tel:[phone] Family Medicine F1 Hospital F/U (chief complaint) Homelessness Hospital discharge follow-up Jan- 9 No Information OFFICE/OUTPA TIENT VISIT, [facility], [address] [id number] 4019275LE- [facility], [place], [place], [address], [place] tel:[phone] Family Medicine F1 Invega Injection (chief complaint) Schizophreni a, unspecified type No Information OFFICE/OUTPA TIENT VISIT, [facility], [address] Cddyv668F2 5067375RVWamego [facility] Center, [place], [place], [address], [place] tel:[phone] Family Medicine F1 Medication Management (chief complaint)Nee ds Note (chief complaint) Generalized Anxiety DisorderHype rtensionUrin hanane frequencyMix ed hyperlipidem ia No Information [facility], [address] Dttvu250X2 5246643GNWamego Health Center, [place], [place], [address], [place] tel:[phone] Family Medicine F1 Pain in left foot 9 Suzanne Rodriguez. [address], [place], [address], [place]. [phone] Referring Provider: Michael Palacios, [address] [place], [address] . tel:[phone] [facility], [address] Kmtvx489J5 6025456DJStanton County Health [facility], [place], [place], [address], [place] tel:[phone] Family Medicine F1 No Information 9 No Information OFFICE/OUTPA TIENT VISIT, [facility], [address] Ybvqy345V5 4671087SVAmissville, [place], [address], [place] tel:[phone] Family Medicine F1 Left foot pain (chief complaint) Left foot painHomeless ness 9 No Information [facility], [address] Emepy801B0 7229031DTPortsmouth, [place], [address], [place] tel:[phone] Family Medicine F1 Homelessness 9 Health [facility]. [address], [place], [address], [place]. tel:[phone] Referring Provider: [facility], [address] [place], [address] . tel:[phone] OFFICE/OUTPA TIENT VISIT, EST [facility], [address] [id number] 4371357KM- [place], [address], [place] tel:[phone] Family Medicine Establish Care (chief complaint)walt elessness (chief complaint) Generalized Anxiety DisorderHype rtensionMixe d hyperlipidem iaHomelessne ss No Information [facility], [address] Ooshz085T9 4797712BBPortsmouth, [place], [address], [place] tel:[phone] Family Medicine Homelessness 9 Health [facility]. [address], [place], [address], [place]. [phone] Referring Provider: [facility], [address] [place], [address] . tel:[phone] [facility], [address] Fancs294E6 9105228KF- [place], [address], [place] tel:[phone] [facility] Other specified counseling No Information [facility], [address] Subpb925Q8 1401628TN- [place], [address], [place] tel:[phone] [facility] No Information 9 Dakota Michel. [address] [place], [address], [place]. tel:[phone] Referring Provider: Anand Duncan, [address] [place], [address]. tel:[phone] [facility], [address] Brtiu538X4 1674584ED- [facility], [place], [place], [address], [place] tel:[phone] [facility] No Information 9 Dakota Michel. [address] [place], [address], [place]. tel:[phone] Referring Provider: Anand Duncan, [address] [place], [address]. tel:[phone] [facility], [address] Cfljy021E0 5650082YVPortsmouth, [place], [address], [place] tel:[phone] [facility] No Information 8 Dakota Michel. [address] [place], [address], [place]. tel:[phone] Referring Provider: Anand Duncan, [address] [place], [address]. tel:[phone] OFFICE/OUTPA TIENT VISIT, [facility], [address] Vmrvx188T7 7940743RLPortsmouth, [place], [address], [place] tel:[phone] [facility] Est. Care (chief complaint)Chr onic conditions (chief complaint) Hypertension Mixed hyperlipidem iaGeneralize d Anxiety DisorderHypo natremiaUrin hanane frequency 8 Dakota Michel. [address] [place], [address], [place]. tel:[phone] Referring Provider: Anand Duncan, [address] [place], [address]. tel:[phone] [facility], [address] Jwfuu508J5 0816817SOPortsmouth, [place], [address], [place] tel:[phone] [facility] No Information 3201 8 Dakota Michel. [address] [place], [address], [place]. tel:[phone] Family History Family Member Type Diagnosis Age At Onset No Information Immunizations Vaccine Date Status Comments Tdap (7 yrs and older) administered Note: VIS: 12/17/20 Patient had no reaction while in clinic. kw ; Source: New Immunization Record Flu Vaccine 6 Months and older administered Source: Public Agenc y Flu Vaccine 6 Months and older administered Note: pt reports at [facility] ; Source: Source Unspecified Payers Payer name Insurance type Covered republican ID Authorizbayron quiñones(s) M [facility] Dual Com plete Medica CI [id number] M [place] Medicaid MC [id number] [facility] Dual Com plete Medica CI [id number] M [place] Medicaid MC [id number] Social History Type Description Quantity Date Captured [...] counseling completed Referral Ordered: Referrals: [facility]. [facility] ordered Referral Ordered: Referrals: Urology. Location: [facility]. Assume care ordered Referral Ordered: Referrals: physcial therapy. Location: [facility]. Evaluate and treat ordered Referral Ordered: Referrals: Location: SDOH (related to Unemployment) ordered Referral Ordered: AARP (related to Unemployment) ordered Referral Ordered: Referrals: Urology. Location: [facility]. Evaluate and treat ordered Referral Ordered: Referrals: Urology ordered Referral Ordered: Referrals: neurologist ordered Referral Ordered: Referrals: [place] ordered Referral Ordered: Referrals: Location: [facility] ordered Referral Ordered: Referrals: Urology. Consult ordered Patient Education Sciatica: Exercises com pleted Patient Education Sciatica: Care Instruct ions completed Patient Education Sciatica: Exercises com pleted Patient Education Low Back Pain: Exercise s completed Future Order: Lab Order [id number] linic/POC ([id number]), Appointment on: , Sent on: Sent Future Order: Lab Order COVID-19 PCR-JV ([id number]), Sent on: Sent Future Order: Radiology Order Ch est 2 Views ([id number]), Ordered on: Ordered History Of Present Illness Encounter Date Complaint History Of Prese nt Illness Medication Management Telephone appointment today.Robert reports he has moved to [place] and is needing his injection sent to the Pharmacy in [place] to make sure he does not miss a dosage. He states he relocated there with his brother.He states he could not take it anymore in [place], and needed to get out of town.He denies SI/HI/AH/VH.He has no complaints or concerns at this time.Plans on establishing care in [place] for Psychiatric Care. Schizoaffective disorder This is [...] denies any associated symptoms. 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 Patient is stimulated with Manic laugh. [...] He would like to see urology at [facility] for his bladder and BPH- [...] with a friend. Was recently seen in [facility] and encouraged to follow up with PCP. When discussing appointment with patient today, he states everything is fine. He denies SI/HI/AH/VH. He feels his tremors have decreased with cogentin. He is slightly dishevel in appearance. He has a laundry bag with him today, and states he is going to go to the traveling missionary after this appointment. 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 Has a hx of hematuria. Has hx [...] is seeing a urologist-Dr. Campuzano at [facility]. Pt reports that he would like to change clinics. He has surgery for his bladder in December and is wanting to see a different provider and would like to go to [facility]. Blood in stool Pertinent negati ves include abdominal distention, abdominal pain, bloating, change in bowel habits, constipation, decreased appetite, diarrhea, dysphagia, heartburn, nausea, perirectal itching, rectal pain, rectal pain associated with bleeding, vomiting and weight loss. Additional information: Pt had colonoscopy at [facility] last year. Has had this off and [...] Flomax and refer for Urologist at [facility] at this time. WBC is low [...] medication. No SI or HI. Has a pulper tender, Cr, at [facility]. Shortness of breath In the inter [...] behaviors were discussed; illegal drugs, prescription drugs, ejfc-lhp-pvuabsc drugs, gambling, alcohol, tobacco and vaping.Reports alcoholism, [...] of the time. HTNBPHHyperlipidemiaSocial History:[facility] Social Supports were discussed; oriental orthodox, family/friendships, therapy, and cultural/ethnic/community supports. I believe in GodPatient reports having support from God, ERROL-Cr, familySexual Orientation: born male, ID male, heterosexualMarital Status: girlfriendNumber of times /: 1/0/is . Children: noneMilitary Service: deniesLegal Information (guardian, probation, parole):Reports hx of incarcerationHas current charge for [facility] History:Denies inutero exposure to drugs/alcoholMet milestones [...] Care PHQ 0.Seeing a n eurologist at [facility]-for parkinsons dslast colonoscopy was 5 years ago-has [...] today. Pt reports needing money to picker and sorter load and unload prescriptions. Pt requesting OTC medications prescribed. Diarrhea [...] note stati james he was here for [facility]. Left foot pain Location: left f oot. Establish Care Pt needing to es tablish care. homelessness Pt needing help getting medications cannot afford. Est. Care The symptoms are reported as being moderate. The symptoms occur daily. He states the symptoms are chronic. Benedicto Amaral is a 58 year old male that is a Resident at [facility] [employer] [facility]. He has been there for [...] cations without change. E-scribed Invega Injection to [facility]. 2. Will be seen again if [...] to the clinic in 3 months for S4bUmpkidui good foot hygiene, wear closed toed shoes. [...] Related t o Undifferentiated schizophrenia referral to [facility]- he has seen urology before [...] with [facility]. Related to Other schizophrenia Pt will not [...] wishes to have this completed at the [facility] location due to nurse preference. I offered [...] EC. Reviewed methods to eradicate in apartment, community development specialist is scheduled for tomorrow. Pt is aware of signs and sxs to contact the clinic for further treatment. Related to Infestation by bed bug Will call pt to repo rt lab results and further plan of care including adjustments to medication if indicated and recommendations for f/u. Related to Other long-term (current) drug therapy Sign ROR for colonos [...] f/u.Pt requests to move urology services to [facility]. ROR for Dr. Ortega's office to be [...] PRN with any issues Related to Other joint terminal attack controller (current) drug therapy Weight control education Related to Other joint terminal attack controller (current) drug therapy Hypertension education Related t o Other long-term (current) drug therapy 1. Patient will be [...] Pt Repeatedly educated and counseled on appropriate paloa of ER, EC, and clinic. Pt reports [...] for assiste d living per nurse career resource technician. Related to Homelessness Xray left foot [...] call 911 or go to the nearest [facility] the office in 4-6 weeks for [...]
--- OUTSIDE RECORDS SUMMARY | 2024-09-06 04:33 | XMS_ITS | Clinical Summary ---
Author Organization [facility] Address [address] Attn: Epic Prelude ADT [place] [id number] Care Team Providers Care Neck Band Maker Name Role Phone Unavailable Primary Care Provider Unavailabl e Allergies Active Allergy Reactions Criticality Noted Date Comments Lactose Diarrhea Medium 08/03/2022 [place] Anaphylaxis,Other (S ee Comments) High 05/02/2018 Vomiting and passed out Penicillins Anaphylaxis High 05/02/2018 asthma Medications Invega Sustenna 234 mg/1.5 mL Syringe 07/21/2022 Active benztropine (COGENTIN) 2 mg tablet Take 1 Tablet (2 mg) by mouth 2 times daily. 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 06/13/2021 Benign prostatic hyperplasia with urinary freque ncy 06/13/2021 History of violent behavior 11/21/2018 At high risk for violence against others 019 Hyponatremia 10/22/2018 Psychosis 10/11/2018 Essential hypertension 05/18/2018 Mixed hyperlipidemia 05/18/2018 Aggressive behavior Bipolar I disorder, most recent episode depresse d Resolved Problems Problem Noted Date Diagnosed Date Resolved Date Acute abdominal pain 07/03/2021 022 Parkinson disease 06/13/2021 09/04/2022 Bipolar disorder, current episode mixed, mild 06/13/19 22 09/04/2022 Suicidal ideation 10/22/2018 09/15/2019 Psychiatric illness 10/22/2018 06/13/19 Acute schizophrenia-like psy chotic disorder with associated acute stress 10/11/2018 06/13/2021 Psychogenic polydipsia 10/11/201806/13 Epigastric abdominal pain 05/18/2018 Tremors of nervous system Constipation 08/27/2021 Right lower quadrant abdominal pain 08/27/2021 Immunizations Immunization Administration Dates Next Due Influenza Seasonal Unspecified Formulation IM Family History Medical History Relation Name Comments Stomach Cancer Father Ovarian Cancer Mother Relation Name Status Comments Father Mother Social History Tobacco Use Types Packs/Day Years Used Date Smoking Tobacco: Former Cigarettes Q uit: 12/22/2011 Smokeless Tobacco: Former Comments:Quit smoking: quit 8 years ago Alcohol Use Standard Drinks/Week Comments Not Currently 0 (1 standard drink = 0.6 oz pur e alcohol) Feeling Safe Answer Date Recorded Within the last year, have y ou been afraid of your partner or ex-partner? No 07/09/2021 Within the last year, have y ou been humiliated or emotionally abused in other ways by your partner or ex-partner? No Within the last year, have y ou been kicked, hit, slapped, or otherwise physically hurt by your partner or ex-partner? No 07/09/2021 Within the last year, have y ou been raped or forced to have any kind of sexual activity by your partner or ex-partner? No 07/09/2021 Social Connections Answer Date Recorded In a typical week, how many times do you talk on the telephone with family, friends, or neighbors? More than three times a week 07/09/2021 How often do you get togethe r with friends or relatives? More than three times a week 07/09/2021 How often do you attend [facility] or confucianism services? More than 4 times per year 07/09/2021 Do you belong to any clubs o r organizations such as jewish groups, unions, fraternal or athletic groups, or school groups? Yes 07/09/2021 How often do you attend meet ings of the clubs or organizations you belong to? More than 4 times per year 07/09/2021 Are you , , di vorced, , never , or living with a partner? 07/09/2021 Financial Resource Strain Answer Date R ecorded How hard is it for you to pa y for the very basics like food, housing, medical care, and heating? Not hard at all 07/09/2021 Food Insecurity Answer Date Recorded In the past 12 months, have you worried that your food would run out before you had money to buy more? Sometimes true 2021 In the past 12 months, did y ou run out of food and didn't have money to buy more? Sometimes true 07/09/2021 Transportation Needs Answer Date Record ed In the past 12 months, has l ack of transportation kept you from medical appointments or from getting medications? Yes 06/15 In the past 12 months, has l ack of transportation kept you from meetings, work, or from getting things needed for daily living? Yes 07/09/2021 Housing Stability Answer Date Recorded In the last 12 months, was t here a time when you were not able to pay the mortgage or rent on time? No 07/09/2021 (RETIRED) In the last Suns, how many places have you lived? Not on file 07/09/2021 (RETIRED) In the last 12 suns, was there a time when you did not have a steady place to sleep or slept in a custodial (including now)? Yes 07/09/2021 Education Answer Date Recorded What is the highest level of school you have completed or the highest degree you have received? 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 Gender Identity Not on file Sexual Orientation Not on file Last Filed Vital Signs Vital Sign Reading Time Taken Comments Blood Pressure 130/76 09/04/2022 1:01 PM CDT Pulse 85 09/04/2022 1:01 PM CDT Temperature 36.7 ??C (98 ??F) 09/04/2022 1:01 PM CDT Respiratory Rate 18 09/04/2022 1:01 PM CDT Oxygen Saturation 98% 09/04/2022 1:01 PM CDT Inhaled Oxygen Concentration - - Weight 110.2 kg (243 lb) 09/04/2022 1:01 PM CDT Height 180.3 cm (5' 11 ) 09/04/2022 1:01 PM CDT Body Mass Index 33.89 09/04/2022 1:01 PM CDT Plan of Treatment Health Maintenance Due Date Last Done Comments DTAP/TDAP/TD VACCINES (1 - Tdap) 1981 FIT-DNA Q 3 years 2007 FIT/FOBT Q 1 year 2007 Flex Sig/CT Colonography Q 5 years 2007 ZOSTER VACCINE (1 of 2) 2012 RSV VACCINE (60+ or ) (1 - Risk 60-74 years 1-dose series) 2022 INFLUENZA VACCINE (#1) 2023 08/03/2022, 2018 COLORECTAL SCREENING 04/30/2024 04/30/2019, 04/30/20 19 Colorectal Cancer Screening 04/30/2024 Procedures Procedure Name Priority Date/Time Associated Diagnosis Comments COLONOSCOPY REPORT 04/30/2019 4:17 PM MORTGAGE ORIGINATOR from Last 3 Months or Most Recently Relevant to Health Maintenance Results * COLONOSCOPY REPORT (04/30/2019 4:17 PM MORTGAGE ORIGINATOR) Teofilo Graves MD GI PROCEDURE ORDERABL ES Final Result from Last 3 Months or Most Recently Relevant to Health Maintenance Insurance MEDICAID [place] [facility] DUAL COMPLETE HMO [facility] [id number] RX [employer] RX Member Subscriber Plan / Payer (Ef fective 2021-Present) Name:Benedicto Amaral Relation to Subscriber:Self Name:Benedicto Amaral Subscriber ID:Not on file Payer ID:Not on file Group ID:[id number] Type:RX Medicare Part D Address: [place]ICAID [place] [facility] MEDICARE [id number] Advance Directives For more information, please contact: [phone] * Full Code (Latest Code Status on File) Date Activated Date Inactivated Comments 08/26/2021 11:18 PM 08/28/2021 12:52 PM * Full Code Date Activated Date Inactivated Comments 07/25/2021 6:50 PM 08/01/2021 2:11 PM * Full Code Date Activated Date Inactivated Comments 07/09/2021 5:14 AM 07/21/2021 3:01 PM * Full Code Date Activated Date Inactivated Comments 07/09/2021 5:13 AM 07/09/2021 5:13 AM * Full Code Date Activated Date Inactivated Comments 06/30/2021 4:55 PM 07/08/2021 1:01 PM
[2024-09-06 07:49] LABS: Glucose Point of Care 138 mg/dL (70-110)
--- NOTE | 2024-09-06 09:44 | PC.NURSE ---
IN DAY ROOM WATCHING TV, PT IS CONFUSED, WITH DISORGANIZED THINKING, ALERT TO SELF. PT BELIEVES IT IS SEPTEMBER 2017. STATES HE SEES MY FRIEND,SEE RIGHT THERE. THE PTS FRIEND OF COURSE IS NOT PRESENT. PT REQUIRES 2-3 STAFF TO TRANSFER AND WILL GO LIMP WHILE TRANSFERRING. SPEECH IS DELAYED AT TIMES. PT USES A WHEELCHAIR TO LOCOMOTE AROUND UNIT. EDENTULOUS, ON A CARB DIET. STAFF ASSISTS WITH TOILETING EVERY TWO HOURS AND NEEDING. DENIES PAIN. DENIES SI/HI AT THIS TIME. REPORTS [facility]. SUPPORT VOICED.
[2024-09-06 11:59] LABS: Glucose Point of Care 160 mg/dL (70-110)
[2024-09-06 17:15] LABS: Glucose Point of Care 123 mg/dL (70-110)
--- NOTE | 2024-09-06 19:14 | P.NPUHP_ITS ---
Providers/Chief Complaint 2 Admitting Physician: Jamari Fermin MD Primary Care Provider: Nidia Mccann DO Chief Complaint: AMS HPI NPU History of Present Illness Benedicto Amaral is a 64 year old male who presented to the emergency department with the following report: Chief Complaint: Altered Mental Status Stated Complaint: AMS Time Seen by Provider: 09/05/24 20:39 History of Present Illness: Benedicto, a male patient with a history of schizophrenia, was found outside in the lobby of his apartment complex exhibiting abnormal behavior. He was initially unresponsive to commands and making repetitive statements, primarily saying Holy Father and his birthday. The patient was observed earlier in the day by some individuals who thought he was acting abnormally. When emergency services initially arrived, he had already left the scene. He was later found and brought in for evaluation. Benedicto is currently minimally responsive, only occasionally responding to his name or making repetitive statements. He does not follow commands, making it difficult to assess for any weakness. His blood pressure was recorded as 140/100. Benedicto appears to be experiencing altered mental status of unclear duration. He is not responding appropriately to questions and has limited verbal output. When asked if he is hurting anywhere or if he has taken any medications recently, he does not provide a clear answer. The patient's ability to perform daily activities is likely impaired given his current mental state, though specific details are not available.. He is admitted to the neuropsychiatric unit for definitive treatment of those issues. He is known to [facility] psychiatry through outpatient services over the past 2-1/2 years and he most recently had an outpatient med management appointment without concerns 08/20/2024 and then had another contact with case management services on 08/29 which also seem to be without problem. He did not presented to the emergency department with altered mental status. He has presented to the unit with some laboratory abnormalities and seeming to be in encephalopathic state per staff reports and direct observation. He has limited speech and is often perseverating on certain words. He was unable to really give any history and much of what we have, understand comes from charting and identifying the fact that he is presenting this way but just less than 2 weeks ago was having a very clear and understandable conversations with his outpatient providers. It is unclear whether this is how he presents and inpatient settings because there is no history of his inpatient narrative. He was unable to give any history and was very somnolent. He has had times where he has seemed delirious per staff reports but with his encounter with this check writer salesperson he was just simply listless and only responsive to his name for the most part. Meds NPU Home Medications ?Medication ?Instructions ?Recorded ?Confirmed ?Last Taken ?Type metoprolol succinate 25 mg 25 mg PO BID 90 days #180 t abs 05/23/22 09/07/24 08/28/24 Rx tablet,extended release 24 hr metformin 500 mg tablet See Rx Instructions .Route . COMPLEX 10/23/23 09/07/24 08/28/24 History paliperidone palmitate 156 mg/mL 156 mg IM .q 28 days #1 mL 10/25/23 09/07/24 08/20/24 Rx intramuscular syringe losartan 25 mg tablet 25 mg PO DAILY 02/19/2408/1308/28/24 History simvastatin 40 mg tablet 40 mg PO BEDTIME 02/19/2408/27/24 History benztropine 2 mg tablet 2 mg PO BID 90 days #180 tab s 04/24/24 09/06/24 08/28/24 Rx cetirizine 10 mg tablet 10 mg PO DAILY 05/05/2408/1308/28/24 History Allergies Allergy/AdvReac Type Severity Reaction Status Date / Time lithium Allergy ADR-Nausea Verified 08/28/24 08:44 oxycodone (From OxyContin) Allergy nausea Verified 08/28/24 08:44 Penicillins Allergy ALGY-Difficulty Verified 08/28/24 08:44 Breathing PFSH NPU 2 PFSH: Medical History Schizoaffective disorder, bipolar type Seasonal allergies History of Parkinson's disease Hyperlipidemia Hypertension Psychiatric care Family History Father Cancer stomach Mother Cancer ovarian Social History Smoking and tobacco/nicotine status: former use of tobacco/nicotine Alcohol intake: current Alcohol intake frequency: holidays/special occasions only Substance/Drug Use: former Adopted: No Caregiver/support person: No Lives independently: Yes Household members: none Housing: Apartment Marital status: / Number of children: 1 Number of grandchildren: 2 Highest education level completed: 8th Grade Current occupational status: unemployed Pets and animals: No Leisure activites: exercise and clubs Sexually active: No Do you think of yourself as: Straight/Heterosexual Current gender identity: Male Janelle/Muslim: Latter Day Special janelle needs: No Agree to transfusion: Yes Mental Status Exam 2 MSE Comments: This is an obese older white male, with hospital scrubs on with limited eye contact. He appears older than his stated age likely secondary to be absent dentition. No abnormal movements except for significant psychomotor retardation. Mostly uncooperative with exam in mild distress. Speech was slightly decreased rate and volume and dysarthric and not very productive. Mood not described; affect lethargic. Thought process, appears linear during our encounter. Thought content: He did not respond to any questions about lethality and was not demonstrating aggression towards himself or others. There were no delusions reported or noted, patient did not respond to questions about perceptual disturbances. Attention, concentration, and memory were impaired but were not formally tested. He unarousable and appeared oriented to his name. Insight and judgment are impaired. Impulse control impaired. Vitals/I&O/Wt Last Vital Signs Temp 98.5 F 09/06/24 16:00 Pulse 82 09/06/24 16:00 Resp 18 09/06/24 16:00 BP 160/95 09/06/24 16:00 Pulse Ox 98 09/06/24 16:00 O2 Del Method Room Air 09/06/24 06:00 Weight last 48 hrs Weight 122.47 kg Data NPU 09/07/24 08:35 09/07/24 08:35 A&P Assessment and plan (1) Schizoaffective disorder, bipolar type: (2) Altered mental status: Qualifiers: Altered mental status type: unspecified Qualified Code(s): R41.82 - Altered mental status, unspecified (3) History of Parkinson's disease: (4) Hypertension: Qualifiers: Hypertension type: primary hypertension Qualified Code(s): I10 - Essential (primary) hypertension Plan This is a 64 year old white male with a history of schizoaffective disorder who presented to the emergency department a short time after some contact with his outpatient providers that appeared to be normal and without impairment now presenting with altered mental status. 1. Continue current medication. Patient received his Invega injection on 08/20/2024. 2. Continue every 15 minute checks for safety. 3. Encourage individual, group and milieu therapies. 4. Get collateral information. 5. Evaluate against the backdrop of 96-hour hold. 6. Reorder labs and consider hospitalist consultation to identify a possible source of encephalopathy. PDMP PDMP Reviewed: Not Reviewed Attestations NPU 2 Medical Necessity Statement*: Inpatient hospitalization is medically necessary and the clinically appropriate intervention at this time. We will monitor medications and make changes as indicated. Patient will be in the hospital for over two midnights. His likely length of stay is 5-7 days. Coding Level of Care Code Acute Code for [facility] Diagnoses Schizoaffective disorder, bipolar type F25.0 Altered mental status R41.82 Altered mental status type: unspecified History of Parkinson's disease Z86.69 Primary hypertension I10 Hypertension type: primary hypertension
[2024-09-06 20:39] LABS: Basophils % 0.6 %; Eosinophils # 0.4 10^3/uL (0.0-0.8); Eosinophils % 5.8 %; Hematocrit 45.8 % (37-53); Lymphocytes # 1.9 10^3/uL (0.8-4.8); Lymphocytes % 28.6 %; Mean Corpuscular HGB Conc 32.3 g/dL (30-55); Mean Corpuscular Hemoglobin 28.7 pg (27-33); Mean Corpuscular Volume 88.9 fl (82-101); Monocytes # 0.6 10^3/uL (0.2-0.9); Monocytes % 8.7 %; Neutrophils # 3.74 10^3/uL (1.8-7.7); Nucleated Red Blood Cells % 0 %; Platelet Count 263 10^3/cmm (157-399); Red Blood Count 5.15 10^6/uL (3.85-5.65); Red Cell Distribution Width 13.6 % (12.1-15.1); White Blood Count 6.68 10^3/uL (3.29-11.43)
[2024-09-06 20:55] LABS: Ammonia 31 umol/L (16-60)
[2024-09-06 21:03] LABS: Alanine Aminotransferase 37 U/L (0-41); Albumin Level 3.8 g/dL (3.5-5.2); Alkaline Phosphatase 78 U/L (40-130); Anion Gap 14.9 (5-19); Aspartate Amino Transferase 23 U/L (0-40); Blood Urea Nitrogen 9 mg/dL (8-23); Calcium 8.7 mg/dL (8.5-10.5); Carbon Dioxide 23 mmol/L (22-29); Chloride 98 mmol/L (98-107); Creatinine Clr Calc Pharmacy 170.0256; Globulin 2.5 g/dL (1.3-4.6); Glomerular Filtration Rate 136.5 mL/min (90-130); Glucose 134 mg/dL (65-115); Osmolality Calculated 275 mOsm/kg (285-295); Potassium 3.9 mmol/L (3.5-5.1); Sodium 132 mmol/L (136-145); Thyroid Stimulating Hormone 2.39 uIU/mL (0.27-4.20); Total Bilirubin 0.7 mg/dL (0.15-1.2); Total Protein 6.3 g/dL (6.6-8.7)
[2024-09-06 21:34] LABS: Glucose Point of Care 147 mg/dL (70-110)
[2024-09-06 22:22] LABS: Free T4 Free Thyroxine 1.41 ng/dL (0.82-1.77)
--- NOTE | 2024-09-07 00:38 | PC.NURSE ---
Addendum entered by Richard Damian CNA 09/07/24 02:19: Charge notified Original Note: vs where not completed, could not get bp as patient screamed in pain everytime, resp 18
[2024-09-07] MEDS: ibuprofen 600 mg Tablet PO (01:54)
--- NOTE | 2024-09-07 05:12 | PC.NURSE ---
vs not taken per charge nurse due to screaming when bp is taken, resp 16
--- NOTE | 2024-09-07 07:21 | PC.NURSE ---
Dr. Fermin called asking about pt labs yesterday. Gave verbal order to repeat CBC and CMP. Asked that we fined the next med doc in line.
[2024-09-07 07:33] VITALS: BP 178/90; PULSE 92; RESP 18; O2SAT 100
[2024-09-07 07:35] LABS: Glucose Point of Care 144 mg/dL (70-110)
[2024-09-07 08:52] LABS: Basophils % 0.5 %; Eosinophils # 0.2 10^3/uL (0.0-0.8); Eosinophils % 3.8 %; Hematocrit 48.5 % (37-53); Lymphocytes # 1.1 10^3/uL (0.8-4.8); Lymphocytes % 20.6 %; Mean Corpuscular HGB Conc 32.2 g/dL (30-55); Mean Corpuscular Hemoglobin 28.3 pg (27-33); Mean Platelet Volume 9.3 fL (7.4-10.4); Monocytes # 0.4 10^3/uL (0.2-0.9); Monocytes % 6.3 %; Neutrophils # 3.78 10^3/uL (1.8-7.7); Neutrophils % 68.4 %; Nucleated Red Blood Cells % 0 %; Platelet Count 277 10^3/cmm (157-399); Red Blood Count 5.51 10^6/uL (3.85-5.65); Red Cell Distribution Width 13.5 % (12.1-15.1); White Blood Count 5.53 10^3/uL (3.29-11.43)
[2024-09-07 09:13] LABS: Alanine Aminotransferase 41 U/L (0-41); Albumin Level 4.2 g/dL (3.5-5.2); Alkaline Phosphatase 87 U/L (40-130); Aspartate Amino Transferase 25 U/L (0-40); Blood Urea Nitrogen 11 mg/dL (8-23); Calcium 9.1 mg/dL (8.5-10.5); Carbon Dioxide 25 mmol/L (22-29); Chloride 96 mmol/L (98-107); Creatinine Clr Calc Pharmacy 127.5192; Globulin 2.8 g/dL (1.3-4.6); Glucose 201 mg/dL (65-115); Osmolality Calculated 281 mOsm/kg (285-295); Sodium 133 mmol/L (136-145); Total Bilirubin 0.7 mg/dL (0.15-1.2)
--- NOTE | 2024-09-07 09:59 | PC.NURSE ---
Pt states that he had some sleep last night. He rates his anxiety and depression a 5/10. He denied SI, but when asked about HI he states that he won't hurt the women, ladies, he won't hurt any ladies and he then asks this nurse if I am a lady. Pt denies auditory hallucination, but he states that he sees spirits and asks this nurse if I believe in spirits. He rates his pain a 8/10 and is generalized. He refuses to take any medications.
--- NOTE | 2024-09-07 11:38 | W.PM.NPUPNS ---
Subjective NPU Subjective: Patient presented today reporting that he is feeling fine but had no recollection of meeting this conventional underwriter previously. He seemed quite guarded per staff reports and direct observation but much of his questioning was completely on a restorationism/Oriental Orthodox lying of thinking. Almost quit seeing this conventional underwriter on positions related to Oriental Orthodox ideology. Things like are you a true believer, or have you read the Bible, the Dante Romulo version? He was reportedly a little better at taking medication per staff reporting. We discussed reaching out to his outpatient team to get a sense of if this was a reflection of anywhere close to baseline. Mental Status Exam MSE Comments: This is an obese older white male, with hospital scrubs on with limited eye contact. He appears older than his stated age likely secondary to be absent dentition. No abnormal movements except for mild psychomotor retardation. Sitting comfortably in wheelchair. More cooperative with exam in mild to moderate distress. Speech was more normal rate and increased volume and less dysarthric with normal productivity of speech. Mood not as fine; affect somewhat irritable and guarded. Thought process, appears linear during our encounter. Thought content: He reports suicidal or homicidal ideation, there were no delusions reported or but patient was quite guarded with hyperreligious and possibly persecutory thinking, he did not report auditory or visual hallucinations. Attention and concentration were improved and memory was limited but none were formally tested. He was alert and oriented to person and place. Insight, judgment judgment and impulse control were all impaired. Vitals/I&O/Wt Last Vital Signs Temp 97.7 F 09/06/24 20:00 Pulse 92 09/07/24 07:33 Resp 18 09/07/24 07:33 BP 178/90 09/07/24 07:33 Pulse Ox 100 09/07/24 07:33 O2 Del Method Room Air 09/06/24 20:00 Weight last 48 hrs Weight 122.47 kg Data NPU 09/07/24 08:35 09/07/24 08:35 A&P Assessment and plan (1) Schizoaffective disorder, bipolar type: (2) Altered mental status: Qualifiers: Altered mental status type: unspecified Qualified Code(s): R41.82 - Altered mental status, unspecified (3) History of Parkinson's disease: (4) Hypertension: Qualifiers: Hypertension type: primary hypertension Qualified Code(s): I10 - Essential (primary) hypertension Plan This is a 64 year old white male with a history of schizoaffective disorder who presented to the emergency department a short time after some contact with his outpatient providers that appeared to be normal and without impairment now presenting with altered mental status. 1. Continue current medication. Patient received his Invega injection on 08/20/2024. Start Invega 3 mg p.o. daily and plan on increasing injection possibly. 2. Continue every 15 minute checks for safety. 3. Encourage individual, group and milieu therapies. 4. Get collateral information. Speak to outpatient team. 5. Evaluate against the backdrop of 96-hour hold. 6. Reorder labs and consider hospitalist consultation to identify a possible source of encephalopathy. Check inflammatory factors procalcitonin, ESR and CRP and evaluate. PDMP PDMP Reviewed: Not Reviewed Attestations NPU Medical Necessity Statement*: Inpatient hospitalization is medically necessary and the clinically appropriate intervention at this time. We will monitor medications and make changes as indicated. His likely length of stay is 5-7 days. Coding Level of Care Code Acute Code for [facility] Diagnoses Schizoaffective disorder, bipolar type F25.0 Altered mental status R41.82 Altered mental status type: unspecified History of Parkinson's disease Z86.69 Primary hypertension I10 Hypertension type: primary hypertension
[2024-09-07 11:50] LABS: Erythrocyte Sedimentation Rate 21 mm/hr (0-10)
[2024-09-07 11:52] LABS: Glucose Point of Care 166 mg/dL (70-110)
[2024-09-07 12:00] VITALS: BP 143/81; PULSE 117; RESP 17; O2SAT 96
[2024-09-07 12:02] LABS: C Reactive Protein 6.6 mg/L (0.0-4.9)
[2024-09-07 12:08] LABS: Procalcitonin 0.04 ng/mL (0-0.5)
[2024-09-07 16:00] VITALS: BP 152/82; PULSE 97; RESP 17; O2SAT 98
--- NOTE | 2024-09-07 16:27 | PC.NURSE ---
Dr. Fermin gave a v/o for Invega 3mg PO Daily. Pt refuses to take the medication stating I am not taking no medications
[2024-09-07 17:08] LABS: Glucose Point of Care 149 mg/dL (70-110)
[2024-09-07 19:42] LABS: Glucose Point of Care 212 mg/dL (70-110)
[2024-09-07 19:57] VITALS: BP 118/74; PULSE 119; RESP 18; TEMP 36.4; O2SAT 96
[2024-09-07 22:25] VITALS: BP 120/78; PULSE 107; RESP 17; O2SAT 97
[2024-09-08 04:00] VITALS: BP 151/93; PULSE 90; RESP 18; TEMP 36.4; O2SAT 99
--- NOTE | 2024-09-08 07:02 | P.NPUPN_ITS ---
Subjective NPU 2 Subjective: Patient presented today reporting that things are fine. However he is wandering into different peoples rooms per staff reports and direct observation. He seems incapable of answering basic questions and responded to my question about how he was doing with are you male or female? . I asked him what that had to do with anything he could not give me a reasonable response. He reported that it was about to get dark and we needed clear glasses with reflective capacity. He continues to have moments where he yells out and then laughs strangely. He continues to be resistant to taking his medication including those for his diabetes and so his sugar is being hard to control. Mental Status Exam 2 MSE Comments: This is an obese older white male, with hospital scrubs on with limited eye contact. He appears older than his stated age likely secondary to be absent dentition. No abnormal movements except for mild psychomotor retardation. Sitting comfortably in wheelchair. More cooperative with exam in mild to moderate distress. Speech was more normal rate and increased volume and less dysarthric with normal productivity of speech. Mood not as fine; affect somewhat irritable and guarded. Thought process, appears linear during our encounter. Thought content: He reports suicidal or homicidal ideation, there were no delusions reported or but patient was quite guarded with hyperreligious and possibly persecutory thinking, he did not report auditory or visual hallucinations. Attention and concentration were improved and memory was limited but none were formally tested. He was alert and oriented to person and place. Insight, judgment judgment and impulse control were all impaired. Vitals/I&O/Wt Last Vital Signs Temp 97.6 F 09/08/24 04:00 Pulse 90 09/08/24 04:00 Resp 18 09/08/24 04:00 BP 151/93 09/08/24 04:00 Pulse Ox 99 09/08/24 04:00 O2 Del Method Room Air 09/08/24 04:00 09/07/24 09/08/24 09/08/24 22:59 06:59 14:59 Output Total 400 / 400 Balance -400 / -400 Data NPU 09/08/24 13:04 09/07/24 08:35 A&P Assessment and plan (1) Schizoaffective disorder, bipolar type: (2) Altered mental status: Qualifiers: Altered mental status type: unspecified Qualified Code(s): R41.82 - Altered mental status, unspecified (3) History of Parkinson's disease: (4) Hypertension: Qualifiers: Hypertension type: primary hypertension Qualified Code(s): I10 - Essential (primary) hypertension Plan This is a 64 year old white male with a history of schizoaffective disorder who presented to the emergency department a short time after some contact with his outpatient providers that appeared to be normal and without impairment now presenting with altered mental status. 1. Continue current medication. Patient received his Invega injection on 08/20/2024. Start Invega 3 mg p.o. daily and plan on increasing injection possibly. 2. Continue every 15 minute checks for safety. 3. Encourage individual, group and milieu therapies. 4. Get collateral information. Speak to outpatient team. 5. Evaluate against the backdrop of 96-hour hold. 6. Reorder labs and consider hospitalist consultation to identify a possible source of encephalopathy. Check inflammatory factors procalcitonin, ESR and CRP and evaluate. PDMP PDMP Reviewed: Not Reviewed Attestations NPU 2 Medical Necessity Statement*: Inpatient hospitalization is medically necessary and the clinically appropriate intervention at this time. We will monitor medications and make changes as indicated. His likely length of stay is 4-6 days. Coding Level of Care Code Acute Code for [facility] Diagnoses Schizoaffective disorder, bipolar type F25.0 Altered mental status R41.82 Altered mental status type: unspecified History of Parkinson's disease Z86.69 Primary hypertension I10 Hypertension type: primary hypertension
[2024-09-08 07:12] LABS: Glucose Point of Care 179 mg/dL (70-110)
[2024-09-08 07:21] VITALS: BP 168/96; PULSE 92; RESP 18; TEMP 36.4; O2SAT 97
--- NOTE | 2024-09-08 07:25 | PC.NURSE ---
This am pt BP is 168/96 and BS is 179. Pt is slow to respond to staff and still refuses to take any medications for us. I called and spoke with Dr. Fermin about this and he stated that he is going to get in touch with Dr. Srinivasan and let us know from there.
--- NOTE | 2024-09-08 09:40 | PC.NURSE ---
Went to ask pt his questions for the morning and assess him. He will not answer any questions just stares at this nurse. I attempted to assist him to go to dayroom and eat breakfast, but he would only stare at me. He did ask for flavored wine I offered him grape juice and he accepted that. This morning his BP was 168/96 and BS 179. I have contacted Dr. Fermin on this and he is getting in touch with hospitalist. He is now standing at the nurses station. Will speak, but not answer questions.
[2024-09-08 10:31] LABS: Glucose Point of Care 236 mg/dL (70-110)
[2024-09-08 12:00] VITALS: BP 144/95; PULSE 111; RESP 17; O2SAT 96
[2024-09-08 13:10] LABS: Basophils # 0.1 10^3/uL (0.0-0.1); Basophils % 0.8 %; Eosinophils # 0.3 10^3/uL (0.0-0.8); Eosinophils % 4.1 %; Hematocrit 48.3 % (37-53); Lymphocytes # 1.7 10^3/uL (0.8-4.8); Lymphocytes % 22.7 %; Mean Corpuscular HGB Conc 31.7 g/dL (30-55); Mean Corpuscular Hemoglobin 28.5 pg (27-33); Mean Corpuscular Volume 89.9 fl (82-101); Mean Platelet Volume 9.2 fL (7.4-10.4); Monocytes # 0.6 10^3/uL (0.2-0.9); Monocytes % 8.3 %; Neutrophils # 4.67 10^3/uL (1.8-7.7); Neutrophils % 63.8 %; Nucleated Red Blood Cells % 0 %; Platelet Count 295 10^3/cmm (157-399); Red Blood Count 5.37 10^6/uL (3.85-5.65); Red Cell Distribution Width 13.8 % (12.1-15.1); White Blood Count 7.32 10^3/uL (3.29-11.43)
[2024-09-08 13:15] LABS: Erythrocyte Sedimentation Rate 15 mm/hr (0-10)
[2024-09-08 13:29] LABS: Alanine Aminotransferase 41 U/L (0-41); Albumin Level 4.3 g/dL (3.5-5.2); Alkaline Phosphatase 87 U/L (40-130); Anion Gap 15.1 (5-19); Aspartate Amino Transferase 26 U/L (0-40); Blood Urea Nitrogen 13 mg/dL (8-23); C Reactive Protein 4.9 mg/L (0.0-4.9); Calcium 9.3 mg/dL (8.5-10.5); Carbon Dioxide 25 mmol/L (22-29); Chloride 99 mmol/L (98-107); Creatinine Clr Calc Pharmacy 127.5192; Globulin 2.9 g/dL (1.3-4.6); Glucose 154 mg/dL (65-115); Osmolality Calculated 283 mOsm/kg (285-295); Potassium 4.1 mmol/L (3.5-5.1); Sodium 135 mmol/L (136-145); Total Bilirubin 0.6 mg/dL (0.15-1.2); Total Protein 7.2 g/dL (6.6-8.7)
[2024-09-08 13:35] LABS: Procalcitonin 0.02 ng/mL (0-0.5)
[2024-09-08 16:00] VITALS: BP 119/79; PULSE 118; RESP 17; TEMP 37.2; O2SAT 94
[2024-09-08 16:31] LABS: Glucose Point of Care 198 mg/dL (70-110)
[2024-09-08 19:56] VITALS: BP 124/81; PULSE 98; RESP 20; O2SAT 94
[2024-09-08 20:54] LABS: Glucose Point of Care 146 mg/dL (70-110)
[2024-09-09] VITALS: BP 134/89; PULSE 93; RESP 18; TEMP 36.5; O2SAT 93
[2024-09-09 04:00] VITALS: BP 170/98; PULSE 90; RESP 18; TEMP 36.4; O2SAT 97
--- NOTE | 2024-09-09 05:11 | PC.NURSE ---
This nurse notified Dr. Fermin at 0509 due to pts 0500 blood pressure being 170/98. No new orders were given at this time
--- NOTE | 2024-09-09 06:35 | PC.NURSE ---
During shift assessment earlier in the evening this nurse attempted several times to get pt to answer assessment questions, however pt continued to shut his eyes and walk around in a [place]. Nursing staff assisted pt to his bed and pt slept for a couple hours. Throughout the night pt will wake up and start screaming out. When you ask pt what is wrong or if he is hurting he will either stare at you and say nothing, or he will scream.
[2024-09-09 07:14] LABS: Glucose Point of Care 173 mg/dL (70-110)
[2024-09-09 07:17] VITALS: BP 149/95; PULSE 114; RESP 18; TEMP 36.5; O2SAT 93
[2024-09-09 11:47] LABS: Glucose Point of Care 160 mg/dL (70-110)
[2024-09-09 12:00] VITALS: BP 140/96; PULSE 93; RESP 18; TEMP 36.6; O2SAT 97
--- NOTE | 2024-09-09 13:12 | PC.NURSE ---
Dr. Fermin gave a v/o for Invega 3mg po daily.
--- NOTE | 2024-09-09 15:03 | W.PM.NPUPNS ---
Subjective NPU Subjective: Patient presents today reporting no clear message. He was giving some kind of random rant about odd things. He had been heard earlier yelling out nigger. He was fixated on something is related to blackness and was going on about [place] and some other odd things. He had moments of somewhat roman catholic speaking but in general was just seeming activated per staff reports and direct observation. He had times that he was screaming out which has become a pattern seen in recent encounters. Mental Status Exam MSE Comments: This is an obese older white male, with hospital scrubs on with limited eye contact. He appears older than his stated age likely secondary to be absent dentition. No abnormal movements except for mild psychomotor retardation admixed with psychomotor agitation. Sitting comfortably in wheelchair. More cooperative with exam in mild to moderate distress. Speech was more normal rate and increased volume and less dysarthric with normal productivity of speech. Mood not as fine; affect somewhat irritable and guarded. Thought process, appears linear during our encounter. Thought content: He reports suicidal or homicidal ideation, there were no delusions reported or but patient was quite guarded with hyperreligious and possibly persecutory thinking, he did not report auditory or visual hallucinations. Attention and concentration were improved and memory was limited but none were formally tested. He was alert and oriented to person and place. Insight, judgment judgment and impulse control were all impaired. Vitals/I&O/Wt Last Vital Signs Temp 97.7 F 09/09/24 07:17 Pulse 114 H 09/09/24 07:17 Resp 18 09/09/24 07:17 BP 149/95 09/09/24 07:17 Pulse Ox 93 09/09/24 07:17 O2 Del Method Room Air 09/09/24 04:00 Data NPU 09/08/24 13:04 09/08/24 13:04 A&P Assessment and plan (1) Schizoaffective disorder, bipolar type: (2) Altered mental status: Qualifiers: Altered mental status type: unspecified Qualified Code(s): R41.82 - Altered mental status, unspecified (3) History of Parkinson's disease: (4) Hypertension: Qualifiers: Hypertension type: primary hypertension Qualified Code(s): I10 - Essential (primary) hypertension Plan This is a 64 year old white male with a history of schizoaffective disorder who presented to the emergency department a short time after some contact with his outpatient providers that appeared to be normal and without impairment now presenting with altered mental status. 1. Continue current medication. Patient received his Invega injection on 08/20/2024. Start Invega 3 mg p.o. daily and plan on increasing injection possibly. 2. Continue every 15 minute checks for safety. 3. Encourage individual, group and milieu therapies. 4. Get collateral information. Speak to outpatient team. 5. Evaluate against the backdrop of 96-hour hold. 6. Reorder labs and consider hospitalist consultation to identify a possible source of encephalopathy. Check inflammatory factors procalcitonin, ESR and CRP and evaluate. PDMP PDMP Reviewed: Not Reviewed Attestations NPU Medical Necessity Statement*: Inpatient hospitalization is medically necessary and the clinically appropriate intervention at this time. We will monitor medications and make changes as indicated. His likely length of stay is 4-6 days. Coding Level of Care Code Acute Code for [facility] Diagnoses Schizoaffective disorder, bipolar type F25.0 Altered mental status R41.82 Altered mental status type: unspecified History of Parkinson's disease Z86.69 Primary hypertension I10 Hypertension type: primary hypertension
[2024-09-09 16:00] VITALS: BP 146/90; PULSE 118; RESP 20; TEMP 37.1; O2SAT 98
[2024-09-09] MEDS: haloperidol inj 5 mg/mL INJ 1 mL IM (17:19)
[2024-09-09] MEDS: LORazepam 2 mg/mL INJ 1 mL IM (17:19)
[2024-09-09] MEDS: diphenhydrAMINE 50 mg/mL SDV 1mL IM (17:19)
--- NOTE | 2024-09-09 17:20 | PC.NURSE ---
Pt has been screaming and yelling all day. He has been found in the unit naked, washing hair with hand soap in sink, smearing poop around and making a mess in his room. At one point pt was naked and laying in his bedroom floor. Pt was taken to dayroom to prepare for dinner and he was screaming a lot more and disrupting other pt. Dr. Fermin came out and ordered that the pt receive a B52 injection to help him calm down. Pt received meds (see mar). Now sitting in dayroom eating dinner.
[2024-09-09 17:25] LABS: Glucose Point of Care 120 mg/dL (70-110)
[2024-09-09] MEDS: trazodone 50 mg Tablet PO (19:39)
[2024-09-09] MEDS: hyDROXYzine 25 mg Capsule 50 MG PO (19:39)
[2024-09-09 19:49] LABS: Glucose Point of Care 211 mg/dL (70-110)
[2024-09-09 20:00] VITALS: BP 130/88; PULSE 90; RESP 17; O2SAT 96
--- NOTE | 2024-09-10 00:39 | PC.NURSE ---
vs not collected resp 18 charge notified
[2024-09-10] MEDS: OLANZapine 5 mg ODT PO ×2 (02:37→08:37)
[2024-09-10] MEDS: haloperidol inj 5 mg/mL INJ 1 mL IM ×2 (03:50→11:35)
[2024-09-10] MEDS: diphenhydrAMINE 50 mg/mL SDV 1mL IM ×2 (03:50→11:36)
[2024-09-10 04:00] VITALS: BP 101/60; PULSE 88; RESP 20; O2SAT 93
--- NOTE | 2024-09-10 05:47 | PC.NURSE ---
BEHAVIORAL At approximately 0330 pt began yelling from his room. This nurse and Trudy RN pulled medications and called data warehouse specialist and security. When nursing staff entered pts room he had taken his pants and briefs off and was sticking his hands in his toilet. Staff asked pt to step out of the bathroom and pt started calling staff members racial slurs. Pt agreed to sit in the bed and this nurse administered Ativan 2mg and Haldol 5mg to pts left deltoid and Benadryl 50mg was administered to the other. Pt tolerated injections well. This nurse and NEUROLOGIST got patient into bed and once staff walked out he sat up, took the pillow cases off of his pillows, threw the pillows across the room and put the pillow case over his head. Pt proceeded to do this 2 more times until he finally laid down in bed with assistance from staff and fell asleep.
[2024-09-10] MEDS: LORazepam 2 mg/mL INJ 1 mL IM ×2 (05:52→11:35)
--- NOTE | 2024-09-10 06:02 | PC.NURSE ---
Pt. kept taking off his depends and yelling out random names. Signee went to check on pt. and he was leaning over the toilet with his hand in the toilet. He did not say why. Pt. kept taking off his pillow cases and placing them over his head while sitting on the side of the bed. He did this several times. Pt. was very reluctant to go sit on the bed. Two security officers was in the room and pt. said how bed he go sit on the bed . Pt. kept his eyes on the security officers. He called the security officers Remi and then magalis whiteheads janes . Pt. said well some of you are not, but God knows which ones are . D/T pt. disrupting other pt.'s and continuing to get naked pt. was given B-52 inj.
[2024-09-10 08:00] VITALS: BP 150/86; PULSE 99; RESP 17; TEMP 36.7; O2SAT 96
[2024-09-10 08:13] LABS: Glucose Point of Care 153 mg/dL (70-110)
[2024-09-10] MEDS: benztropine 1 mg Tablet PO ×2 (08:41→19:50)
--- NOTE | 2024-09-10 10:11 | PC.NURSE ---
SITTING ON BED, PICKED ATTENDS APART, PLACED ATTENDS OVER HEAD AROUND HIS NECK THEN PLACED A SHEET OVER HIS HEAD. PT WAS CLEANED UP. SHEETS REMOVED. PT WAS GIVEN ZYDIS 5 MG ORDERED FOR INCREASED ANXIETY AND AGITATION. PT WAS ALSO GIVEN INVEGA AND COGENTIN. PT DECLINED TO TAKE MEDICATION BUT THIS RN EDUCATED THAT DR. GIRON WANTED HIM TO TAKE THEM. ATTEMPTED TO TAKE BUT THEN LOOKED AT RN AND SUPERVISOR GAS METER REPAIR THEN SPIT THE MEDICATIONS OUT TOWARDS US. ZYDIS DISSOLVED. OTHER MEDICATIONS WERE TAKEN OUT OF ROOM DISCARDED. PT REMAINS IMPULSIVE, CONFUSED WITH DISORGANIZED THOUGHT PROCESS. ORIENTATED TO SELF ONLY. RIPPED OFF PT ID BAND THEN ASKED IF STAFF WOULD GET ME ANOTHER WRIST WATCH. PT SPEECH IS GARBALED AT TIMES THEN HE SPEAKS NORMALLY. DENIES SI/HI. ENDORSES HEARING VOICES AND SEEING THINGS. PT CURRENTLY EATING AND DRINKING WITHOUT ISSUES. REMAINS INCONTINENT AT TIMES. NEW ORDERS RECEIVED FOR ONE TO ONE OBSERVATION DUE TO IMPULSIVE BEHAVIORS, CONSTANTLY PUSHING BUTTONS IN BATHROOM, FALL RISK, AND THE ABOVE OBSERVED BEHAVIORS.
--- NOTE | 2024-09-10 11:36 | PC.NURSE ---
PT CONTINUES TO PRESS CALL LIGHT BUTTON, SCREAM AND YELL THAT HELLS BREAKING WIDE OPEN AND YOU ALL ARE GOING. PT HAS A ONE TO ONE SITTER PRESENT BUT IS SHOWING AGGRESSIVE AND THREATENING BEHAVIORS SO MALE SITTER WAS PLACED ON PT AND FEMALE SITTER REMOVED. PT IS DEMANDING TO SEE THE DR AND HAVE HIS WALKER BACK. PT WAS INSTRUCTED IF HE WOULD STOP PUSHING THE CALL LIGHT BUTTON THEN WE COULD DISCUSS GETTING HIS WALKER BACK. PTS WALKER WAS TAKEN YESTERDAY DUE TO TRYING TO HIT STAFF WITH IT. HERE TO OBSERVE BEHAVIORS. [employer] WORK[employer]' COMPENSATION HEARINGS OFFICER HERE AND NOTIFIED WELL OF BEHAVIORS. PT WAS GIVEN ATIVAN 2 MG AND HALDOL 5MG IM TO RIGHT DELTOID AND BENADRYL 50 MG IM TO LEFT DELTOID. SECURITY CALLED FOR STAND BY BUT PT SAT DOWN WITH STAFF HOLDING HANDS AND TOOK INJECTIONS WILLINGLY. PT CONTINUES TO SCREAM YOU ARE ALL GOING TO HELL. DOES PRESS BUTTON BUT PRESSING LESS FREQUENTLY. PT CURRENTLY SITTING ON BED. GOLF COURSE MANAGER NOTIFIED OF INJECTIONS AND BEHAVIORS.
[2024-09-10 12:00] VITALS: BP 111/68; PULSE 127; RESP 17; O2SAT 94
[2024-09-10 12:34] LABS: Glucose Point of Care 233 mg/dL (70-110)
--- NOTE | 2024-09-10 13:38 | P.NPUPN_ITS ---
Subjective NPU 2 Subjective: Patient presented today reporting that things are going okay. He had a very agitated. At the time initially in the morning which eventually gave way to a calmness after him receiving as needed medications. We discussed the plan to place him on a 96-hour hold given his clear limitations and being able to make informed consent. We endorsed the plan to hopefully return him home if he has appropriate improvement. He denied any side effects of the medication. Mental Status Exam 2 MSE Comments: This is an obese older white male, with hospital scrubs on with limited eye contact. He appears older than his stated age likely secondary to be absent dentition. No abnormal movements except for mild psychomotor retardation admixed with psychomotor agitation. Sitting comfortably on his bed. More cooperative with exam in mild to moderate distress intermittently. Speech was more normal rate and increased volume and less dysarthric with normal productivity of speech. Mood not as fine; affect somewhat irritable and guarded. Thought process, appears linear during our encounter. Thought content: He reports suicidal or homicidal ideation, there were no delusions reported or but patient was quite guarded with hyperreligious and possibly persecutory thinking, he did not report auditory or visual hallucinations. Attention and concentration were improved and memory was limited but none were formally tested. He was alert and oriented to person and place. Insight, judgment judgment and impulse control were all impaired. Vitals/I&O/Wt Last Vital Signs Temp 98.1 F 09/10/24 08:00 Pulse 127 H 09/10/24 12:00 Resp 17 09/10/24 12:00 BP 111/68 09/10/24 12:00 Pulse Ox 94 09/10/24 12:00 O2 Del Method Room Air 09/10/24 04:00 Data NPU 09/08/24 13:04 09/08/24 13:04 A&P Assessment and plan (1) Schizoaffective disorder, bipolar type: (2) Altered mental status: (3) History of Parkinson's disease: (4) Hypertension: Plan This is a 64 year old white male with a history of schizoaffective disorder who presented to the emergency department a short time after some contact with his outpatient providers that appeared to be normal and without impairment now presenting with altered mental status. 1. Continue current medication. Patient received his Invega injection on 08/20/2024. Start Invega 3 mg p.o. daily and plan on increasing injection possibly. 2. Continue one-to-one with safety concerns of aggression and instability since we have had to take his walker away. 3. Encourage individual, group and milieu therapies. 4. Get collateral information. Speak to outpatient team. Outpatient team report this is a departure from baseline behavior but some family input suggest that he may present like this when he decompensates. Some possible signs of improvement but continued need for additional oversight for safety. 5. Has reported patient on 96-hour hold in error. Given his lack of capacity for informed consent, patient placed on a 96-hour hold. 6. Reorder labs and consider hospitalist consultation to identify a possible source of encephalopathy. Check inflammatory factors procalcitonin, ESR and CRP and evaluate. Labs continue to normalize. PDMP PDMP Reviewed: Not Reviewed Involuntary Hold Information 2 Hold Status: Date/Time Hold Expires: 09/12/2024 Attestations NPU 2 Medical Necessity Statement*: Inpatient hospitalization is medically necessary and the clinically appropriate intervention at this time. We will monitor medications and make changes as indicated. His likely length of stay is 4-6 days. Coding Level of Care Code Acute Code for [facility] Diagnoses Schizoaffective disorder, bipolar type F25.0 Altered mental status R41.82 Altered mental status type: unspecified History of Parkinson's disease Z86.69 Primary hypertension I10 Hypertension type: primary hypertension
[2024-09-10 16:00] VITALS: BP 145/87; PULSE 111; RESP 17; O2SAT 93
--- NOTE | 2024-09-10 16:23 | PC.NURSE ---
96 HOLD FILED DUE TO PT BEING PHYSICALLY AGGRESSION WITH STAFF, VERBALLY AGGRESSIVE, LACKS CAPACITY TO MAKE DECISIONS AND GIVE INFORMED CONSENT. PT CONTINUES TO BE INCONTINENT OF URINE AND BOWEL. PT HAS BEEN GIVEN MEDICATIONS TO DECREASE ANXIETY AND AGGRESSION. 96 HOUR HOLD RIGHTS READ TO PT WITH 96 HOUR HOLD PAPER WORK GIVEN WELL. PT CONTINUES TO SCREAM AND YELL OUT. SUPPORT VOICED.
[2024-09-10 16:37] LABS: Glucose Point of Care 137 mg/dL (70-110)
[2024-09-10] MEDS: trazodone 50 mg Tablet PO (19:49)
[2024-09-10] MEDS: hyDROXYzine 25 mg Capsule 50 MG PO (19:49)
[2024-09-10] MEDS: haloperidol 5 mg Tablet PO (19:50)
--- NOTE | 2024-09-10 20:07 | PC.NURSE ---
Pt. was given evening meds and took several drinks then pt. spit out the pills into the corner of his room. Signee asked why pt. stated they tasted bad. Signee got apple sauce and fed him about 1/2 the container and he swallowed the pills. Signee was told in report that pt. tore up multiple pillow yesterday and today so it was decided not to give pt. anymore pillows. Pt. became extremely mad and screamed at signee your a lier . Signee talked to pt.'s sister and she said that pt. liked living in the hospital because he likes people waiting on him hand and foot.
--- NOTE | 2024-09-10 20:17 | PC.NURSE ---
Pt. sister Laurie stated he basically lived at [facility] or [facility] in [place] and they had to kick him out. She doesn't remember which hospital it was, but she stated one of the hospitals will no longer admit him. Sister stated she could not be much help her just had a triple by pass surgery.
--- NOTE | 2024-09-10 20:38 | PC.NURSE ---
vs and blood sugar not taken per charge nurse due to patient refusal, patient screaming and very agitated, resp 18
[2024-09-11] MEDS: OLANZapine 5 mg ODT PO ×2 (02:49→08:29)
--- NOTE | 2024-09-11 03:05 | PC.NURSE ---
Pt. woke up and starting yelling. Signee gave pt. a Zyprexa that he spit out. Pt. kept screaming so signee gave pt. Lelandl and Eunice IM
[2024-09-11] MEDS: diphenhydrAMINE 50 mg/mL SDV 1mL IM (03:06)
[2024-09-11] MEDS: haloperidol inj 5 mg/mL INJ 1 mL IM (03:06)
--- NOTE | 2024-09-11 03:08 | PC.NURSE ---
Pt. is now spitting on the floor of his room.
[2024-09-11 06:00] VITALS: BP 119/75; PULSE 114; RESP 19; TEMP 36.6; O2SAT 95
--- NOTE | 2024-09-11 06:31 | PC.NURSE ---
Pt. took fall mat and folded it up and sat down on the floor on top of it. Pt. then scooted across the floor to the BR and said he needed to pee. Signee and SALES SPECIALIST had to assist pt. back to a standing position. Pt. was not any help and would not even try to bear wt. Signee informed pt. not to sit down on the floor again in a tang voice. Informed pt. there was chairs in the dayroom he could sit in. Pt. also washed his hands for 20 to 30 min tonight, sat on the toilet with his pants up, screamed and slammed doors. When asked why he was slamming doors he replied because I want to . Pt. was also spitting on the floor. Signee asked pt. to spit in the sink and then pt. sat on the end of his bed and tried to aim at the sink to spit in.
[2024-09-11 07:35] LABS: Glucose Point of Care 197 mg/dL (70-110)
[2024-09-11] MEDS: paliperidone ER 3 mg Tablet PO (08:29)
[2024-09-11] MEDS: benztropine 1 mg Tablet PO (08:29)
--- NOTE | 2024-09-11 09:33 | PC.NURSE ---
IN BED ROLLING AROUND WITH SITTER AT BEDSIDE. CONTINUES TO SCREAM AT TIMES AND BE IMPULSIVE. PT DID TAKE HIS MEDICATIONS ORDERED BUT REQUESTED THE MEDICATIONS BE PLACED IN APPLESAUCE BECAUSE HE DOES NOT LIKE THE TASTE. PT IS IRRITABLE, NEGATIVE AND EVASIVE WITH ASSESSMENT. DENIES SI/HI AND AVH AT THIS TIME. PT DOES LAUGH INAPPROPRIATELY AT TIMES. PT WAS GIVEN WALKER TO AMBULATE DUE TO HIGH FALL RISK. PT HAS BEEN USING HIS WALKER APPROPRIATELY FOR THE PAST HOUR, WILL CONTINUE TO SEE IF PT IS ABLE TO USE THE WALKER AND NOT HIT OTHERS WITH IT. PT WAS INFORMED THAT IF HE BEGINS THAT BEHAVIOR THE WALKER WILL HAVE TO BE TAKEN AWAY. PT STATED WELL I JUST NEED IT SO I CAN GET UP. RN APPLIED NON SLIP SOCKS AND PT WAS ABLE TO USE THE WALKER WITHOUT DIFFICULTY. SUPPORT WAS VOICED. DENIES PAIN.
[2024-09-11 14:00] VITALS: BP 130/79; PULSE 107; RESP 17; O2SAT 92
--- NOTE | 2024-09-11 17:24 | P.NPUPN_ITS ---
Subjective NPU 2 Subjective: Patient presented today reporting that he was doing okay. We talked about rastafari of case management and he was less than supportive of the plan. We discussed trying to avoid situations like this where he got out of sorts and no one was really aware until it was too late. Staff report of him being adherent with his medication which is a step forward. Less need for as needed medication noted. He denied any side effects to the medication. Mental Status Exam 2 MSE Comments: This is an obese older white male, with hospital scrubs on with limited eye contact. He appears older than his stated age likely secondary to be absent dentition. No abnormal movements except for mild psychomotor retardation admixed with psychomotor agitation. Sitting comfortably on his bed. More cooperative with exam in mild to moderate distress intermittently. Speech was more normal rate and increased volume and less dysarthric with normal productivity of speech with the reduction in the occasional yelling but it is still loud and shrill. Mood described as okay; affect less irritable and guarded. Thought process, appears linear during our encounter. Thought content: He reports suicidal or homicidal ideation, there were no delusions reported or and less hyperreligious with limited persecutory thinking noted, he did not report auditory or visual hallucinations. Attention and concentration were improved and memory was limited but none were formally tested. He was alert and oriented to person and place. Insight, judgment judgment and impulse control were all impaired. Vitals/I&O/Wt Last Vital Signs Temp 97.8 F 09/11/24 06:00 Pulse 88 09/11/24 20:21 Resp 16 09/11/24 20:21 BP 112/62 09/11/24 20:21 Pulse Ox 96 09/11/24 20:21 O2 Del Method Room Air 09/11/24 06:00 09/11/24 09/11/24 09/12/24 14:59 22:59 06:59 Intake Total 600 / 600 Output Total 400 / 400 Balance 200 / 200 Data NPU 09/08/24 13:04 09/08/24 13:04 A&P Assessment and plan (1) Schizoaffective disorder, bipolar type: (2) Altered mental status: (3) History of Parkinson's disease: (4) Hypertension: Plan This is a 64 year old white male with a history of schizoaffective disorder who presented to the emergency department a short time after some contact with his outpatient providers that appeared to be normal and without impairment now presenting with altered mental status. 1. Continue current medication. Patient received his Invega injection on 08/20/2024. Start Invega 3 mg p.o. daily and plan on increasing injection with 09/17/2024 2. Continue one-to-one with safety concerns of aggression and instability since we have had to take his walker away. We returned his walker 3. Encourage individual, group and milieu therapies. 4. Get collateral information. Speak to outpatient team. Outpatient team report this is a departure from baseline behavior but some family input suggest that he may present like this when he decompensates. Some possible signs of improvement but continued need for additional oversight for safety. 5. Has reported patient on 96-hour hold in error. Given his lack of capacity for informed consent, patient placed on a 96-hour hold. 6. Reorder labs and consider hospitalist consultation to identify a possible source of encephalopathy. Check inflammatory factors procalcitonin, ESR and CRP and evaluate. Labs continue to normalize. PDMP PDMP Reviewed: Not Reviewed Involuntary Hold Information 2 Hold Status: Date/Time Hold Expires: 09/12/2024 Attestations NPU 2 Medical Necessity Statement*: Inpatient hospitalization is medically necessary and the clinically appropriate intervention at this time. We will monitor medications and make changes as indicated. His likely length of stay is 3-5 days. Coding Level of Care Code Acute Code for g Fwd Diagnoses Schizoaffective disorder, bipolar type F25.0 Altered mental status R41.82 Altered mental status type: unspecified History of Parkinson's disease Z86.69 Primary hypertension I10 Hypertension type: primary hypertension
[2024-09-11 19:56] LABS: Glucose Point of Care 213 mg/dL (70-110)
[2024-09-11 20:21] VITALS: BP 112/62; PULSE 88; RESP 16; O2SAT 96
--- NOTE | 2024-09-11 21:27 | PC.NURSE ---
Signee was called into pt.'s room by WALLACE. Pt. had a BM in the shower and was washing his hands in the toilet where there was also BM. Pt. would not stop when asked to do so. Finally pt. was directed to bed clothing taken off, instructed pt. to wash hands in sink, wiped BM off pt.'s buttocks, redressed pt. asked why pt. was playing in his BM and he said it was fun. There was BM all over the bathroom on the velez, toilet, floor and shower, cleaned up by staff. Pt. a few min later started pushing his body wt. on the door trying to get out. The frame to the door looked like it was buckling. Pt. then went and sat on the bench by the phone when he decided he could not get out the door and screamed at staff in a Turrets like symptom. Pt. was very angry.
--- NOTE | 2024-09-12 06:36 | PC.NURSE ---
Vs not completed per charge nurse resp 18
--- NOTE | 2024-09-12 07:40 | PC.NURSE ---
NEW ORDERS RECEIVED FROM DR. GIRON TO GIVE PT ORAL BENADRYL 50 MG PO Q 4 PRN, ATIVAN 2 MG PO Q 4 HOUR PRN FOR SEVERE AGITATION. PT IS SCREAMING, YELLING AND CUSSING AT STAFF. PT IS EXTREMELY AGITATED. VERBALLY REDIRECTED WITH STAFF WITH NO EFFECTIVENESS. WILL ATTEMPT TO GIVE MEDICATIONS ORALLY. SUPPORT VOICED.
[2024-09-12] MEDS: acetaminophen 325 mg Tablet 650 MG PO (07:41)
[2024-09-12] MEDS: paliperidone ER 3 mg Tablet PO (07:41)
[2024-09-12] MEDS: benztropine 1 mg Tablet PO (07:41)
[2024-09-12 07:42] LABS: Glucose Point of Care 187 mg/dL (70-110)
[2024-09-12] MEDS: LORazepam 2 mg Tablet PO (07:47)
[2024-09-12] MEDS: haloperidol 5 mg Tablet PO (07:47)
[2024-09-12] MEDS: diphenhydrAMINE 50 mg Capsule PO (07:47)
--- NOTE | 2024-09-12 08:29 | PC.NURSE ---
ANXIOUS AND IMPULSIVE BEHAVIORS CONTINUES. ONE TO ONE OBSERVATION REMAINS IN PLACE DUE TO PTS UNPREDICTABLE BEHAVIORS, YELLING, SCREAMING AND SMEARING FECES. PT AMBULATES WITH WALKER, DID GO DOWN TO DAY ROOM AND EAT BREAKFAST. TOOK MEDICATIONS ORDERED. ATIVAN 2 MG, HALDOL 5 MG AND BENADRYL 50 AND COGENTIN 1 MG GIVEN ORDERED FOR AGITATION, YELLING AND SCREAMING. PT WILL GET UP INTO STAFFS FACE AND YELL PERIODICALLY YOU ALL ARE BURNING IN HELL. PT IS REFUSING TO GO INTO HIS ROOM AND HAS BEEN REDIRECTED OUT OF OTHERS ROOMS THIS MORNING. HE IS DEMANDING HE BE GIVEN ANOTHER ROOM BUT THERE IS NOT ONE AVAILABLE THAT IS CLOSE TO THE NURSES STATION SO PT CAN BE CLOSELY MONITORED. PT REPORTS THERE ARE WASPS IN HIS ROOM AND THAT IS WHY HE WILL NOT GO IN. DENIES SI/HI AND AVH AT TIME BUT PT IS CLEARLY HAVING HALLUCINATIONS THAT ARE DISTURBING TO HIM. PT CURRENTLY WALKING THE HALLS WITH SITTER CLOSE BY. SUPPORT VOICED.
[2024-09-12 14:00] VITALS: BP 158/83; PULSE 108; RESP 18; TEMP 37; O2SAT 95
--- NOTE | 2024-09-12 15:41 | PC.NURSE ---
Patient's friend Renetta left phone number so she can be contacted for a ride. [phone]
--- NOTE | 2024-09-12 18:40 | P.NPUPN_ITS ---
Subjective NPU 2 Subjective: Patient presented today continuing to show slow but steady improvement. He continued to have occasional screams but these continue to diminish in frequency. He appears to be sleeping better and was less agitated per staff reports and direct observation. Much easier to speak to and had greater coherence to his responses. He continues now to take his medication as prescribed and we discussed the plan to increase his Invega injection when it is due. He denied any side effects to his medication. Mental Status Exam 2 MSE Comments: This is an obese older white male, with hospital scrubs on with limited eye contact. He appears older than his stated age likely secondary to be absent dentition. No abnormal movements except for mild psychomotor retardation admixed with psychomotor agitation. Sitting comfortably on his bed. More cooperative with exam in mild to moderate distress intermittently. Speech was more normal rate and increased volume and less dysarthric with normal productivity of speech with the reduction in the occasional yelling but it is still loud and shrill. Mood described as okay; affect less irritable and guarded. Thought process, appears linear during our encounter. Thought content: He reports suicidal or homicidal ideation, there were no delusions reported or and less hyperreligious with limited persecutory thinking noted, he did not report auditory or visual hallucinations. Attention and concentration were improved and memory was limited but none were formally tested. He was alert and oriented to person and place. Insight, judgment judgment and impulse control were all impaired. Vitals/I&O/Wt Last Vital Signs Temp 98.6 F 09/12/24 19:52 Pulse 115 H 09/12/24 19:52 Resp 18 09/12/24 19:52 BP 138/81 09/12/24 19:52 Pulse Ox 97 09/12/24 19:52 O2 Del Method Room Air 09/11/24 06:00 09/12/24 09/12/24 14:59 22:59 Intake Total 0 / 0 Output Total 400 / 400 Balance -400 / -400 Data NPU 09/08/24 13:04 09/08/24 13:04 A&P Assessment and plan (1) Schizoaffective disorder, bipolar type: (2) Altered mental status: (3) History of Parkinson's disease: (4) Hypertension: Plan This is a 64 year old white male with a history of schizoaffective disorder who presented to the emergency department a short time after some contact with his outpatient providers that appeared to be normal and without impairment now presenting with altered mental status. 1. Continue current medication. Patient received his Invega injection on 08/20/2024. Start Invega 3 mg p.o. daily and plan on increasing injection with 09/17/2024 2. Continue one-to-one with safety concerns of aggression and instability since we have had to take his walker away. We returned his walker 3. Encourage individual, group and milieu therapies. 4. Get collateral information. Speak to outpatient team. Outpatient team report this is a departure from baseline behavior but some family input suggest that he may present like this when he decompensates. Some possible signs of improvement but continued need for additional oversight for safety. 5. Has reported patient on 96-hour hold in error. Given his lack of capacity for informed consent, patient placed on a 96-hour hold. 6. Reorder labs and consider hospitalist consultation to identify a possible source of encephalopathy. Check inflammatory factors procalcitonin, ESR and CRP and evaluate. Labs continue to normalize. PDMP PDMP Reviewed: Not Reviewed Involuntary Hold Information 2 Hold Status: Legal Status: 96 Hour Hold Date/Time Hold Expires: 09/12/2024 Attestations NPU 2 Medical Necessity Statement*: Inpatient hospitalization is medically necessary and the clinically appropriate intervention at this time. We will monitor medications and make changes as indicated. His likely length of stay is 3-5 days. Coding Level of Care Code Acute Code for g Fwd Diagnoses Schizoaffective disorder, bipolar type F25.0 Altered mental status R41.82 Altered mental status type: unspecified History of Parkinson's disease Z86.69 Primary hypertension I10 Hypertension type: primary hypertension
[2024-09-12 19:52] VITALS: BP 138/81; PULSE 115; RESP 18; TEMP 37; O2SAT 97
[2024-09-13 06:00] VITALS: BP 162/93; PULSE 105; RESP 18; O2SAT 95
[2024-09-13 07:43] LABS: Glucose Point of Care 182 mg/dL (70-110)
[2024-09-13] MEDS: ibuprofen 600 mg Tablet PO (09:01)
[2024-09-13] MEDS: paliperidone ER 3 mg Tablet PO (09:01)
[2024-09-13] MEDS: haloperidol 5 mg Tablet PO (09:01)
[2024-09-13] MEDS: diphenhydrAMINE 50 mg Capsule PO (09:42)
[2024-09-13] MEDS: LORazepam 2 mg Tablet PO (09:42)
--- NOTE | 2024-09-13 09:49 | PC.NURSE ---
Oral B2 Administered oral B52 this morning in applesauce for agitation. Patient yelling at staff, patient saying inappropriate things. Staff unable to redirect patient. Patient pushing on the call buttons in his bathroom, numerous times. Sitter with patient, will continue to closely monitor.
[2024-09-13 12:06] LABS: Glucose Point of Care 188 mg/dL (70-110)
[2024-09-13 14:00] VITALS: BP 106/62; PULSE 91; RESP 16; O2SAT 96
--- NOTE | 2024-09-13 16:43 | P.NPUPN_ITS ---
Subjective NPU 2 Subjective: Today reporting that he is feeling a little better. He had a more reasonable conversation about a possible medical illness as a nidus of his decompensation. But we discussed that his labs had resolved for the most part and he was starting to do better. We discussed the goal of getting him off of one-to-one and the possibility of discharge possibly this week. He denied any side effects of medication we discussed that increasing dose of his injection this time when he gets his next injection. Mental Status Exam 2 MSE Comments: * This is an obese older white male, with hospital scrubs on with eye contact. He appears older than his stated age likely secondary to be absent dentition. No abnormal movements except for mild psychomotor retardation admixed with psychomotor agitation. Sitting comfortably on his bed. More cooperative with exam in mild distress intermittently. Speech was more normal rate and increased volume and less dysarthric with normal productivity of speech with the reduction in the occasional yelling but it is still loud and shrill. Mood described as okay; affect less irritable and guarded. Thought process, appears linear during our encounter. Thought content: He reports suicidal or homicidal ideation, there were no delusions reported and no hyperreligious with limited persecutory thinking noted, he did not report auditory or visual hallucinations. Attention and concentration were improved and memory was limited but none were formally tested. He was alert and oriented to person and place. Insight, judgment and impulse control were all impaired, but improving. Vitals/I&O/Wt Last Vital Signs Temp 98.6 F 09/12/24 19:52 Pulse 91 09/13/24 14:00 Resp 16 09/13/24 14:00 BP 106/62 09/13/24 14:00 Pulse Ox 96 09/13/24 14:00 O2 Del Method Room Air 09/13/24 14:00 09/13/24 09/13/24 09/13/24 06:59 14:59 22:59 Intake Total 600 / 600 Output Total 402 / 402 Balance 198 / 198 Data NPU 09/08/24 13:04 09/08/24 13:04 A&P Assessment and plan (1) Schizoaffective disorder, bipolar type: (2) Altered mental status: (3) History of Parkinson's disease: (4) Hypertension: Plan This is a 64 year old white male with a history of schizoaffective disorder who presented to the emergency department a short time after some contact with his outpatient providers that appeared to be normal and without impairment now presenting with altered mental status. 1. Continue current medication. Patient received his Invega injection on 08/20/2024. Start Invega 3 mg p.o. daily and plan on increasing injection with 09/17/2024 2. Continue one-to-one with safety concerns of aggression and instability since we have had to take his walker away. We returned his walker 3. Encourage individual, group and milieu therapies. 4. Get collateral information. Speak to outpatient team. Outpatient team report this is a departure from baseline behavior but some family input suggest that he may present like this when he decompensates. Some possible signs of improvement but continued need for additional oversight for safety. 5. Has reported patient on 96-hour hold in error. Given his lack of capacity for informed consent, patient placed on a 96-hour hold. 6. Reorder labs and consider hospitalist consultation to identify a possible source of encephalopathy. Check inflammatory factors procalcitonin, ESR and CRP and evaluate. Labs continue to normalize. PDMP PDMP Reviewed: Not Reviewed Involuntary Hold Information 2 Hold Status: Legal Status: 96 Hour Hold Date/Time Hold Expires: 09/12/2024 Attestations NPU 2 Medical Necessity Statement*: Inpatient hospitalization is medically necessary and the clinically appropriate intervention at this time. We will monitor medications and make changes as indicated. His likely length of stay is 3-5 days. Coding Level of Care Code Acute Code for [facility] Fwd Diagnoses Schizoaffective disorder, bipolar type F25.0 Altered mental status R41.82 Altered mental status type: unspecified History of Parkinson's disease Z86.69 Primary hypertension I10 Hypertension type: primary hypertension
[2024-09-13 17:24] LABS: Glucose Point of Care 212 mg/dL (70-110)
[2024-09-13 22:00] VITALS: BP 163/98; PULSE 110; RESP 18; TEMP 36.4; O2SAT 93
[2024-09-14 06:00] VITALS: BP 170/98; PULSE 88; RESP 16; O2SAT 97
[2024-09-14 07:30] LABS: Glucose Point of Care 150 mg/dL (70-110)
[2024-09-14] MEDS: paliperidone ER 3 mg Tablet PO ×2 (08:52→17:23)
[2024-09-14] MEDS: haloperidol inj 5 mg/mL INJ 1 mL IM (10:53)
--- NOTE | 2024-09-14 10:54 | PC.NURSE ---
Pt is up and yelling random words at the nurses station. We have offered drinks, rest, and food. Pt does not take po medications very well and so I made the decision to use IM haldol to help ease his hallucinations. Pt willing tolerated injection well.
[2024-09-14 11:54] LABS: Glucose Point of Care 188 mg/dL (70-110)
[2024-09-14 14:00] VITALS: BP 174/117; PULSE 126; RESP 18; O2SAT 96
--- NOTE | 2024-09-14 17:10 | P.NPUPN_ITS ---
Subjective NPU 2 Subjective: 64-year-old male with schizophrenia prev iously receiving his Invega Sustenna 156 mg on 08/20/2024 who presented with worsening psychosis. Patient continued to appear psychotic on the unit. He had loud vocalizations. He said that there were 2 sniper's in [place] . He had uttered random words including [employer]. The patient had continued to appear somewhat confused on the unit as he had stayed in his room most of the day. The patient had no acts of aggression. He had continued to appear more confused today according to his one-on-one sitter. He had remained compliant with his oral medications. Mental Status Exam 2 MSE Comments: * This is an obese older white male, with hospital scrubs on with eye contact. He appears older than his stated age likely secondary to be absent dentition. No abnormal involuntary motor movements except for mild psychomotor retardation admixed with psychomotor agitation. Laying comfortably on his bed. He was minimally cooperative with exam in mild distress intermittently. Speech was scanty and increased volume and less dysarthric with normal productivity of speech with the continued presence of verbal outbursts. Mood described as okay. ; Affect was bizarre. Thought process was nonlinear. Thought content: He reports suicidal or homicidal ideation, there were no delusions reported and no hyperreligious with limited persecutory thinking noted, he did not report auditory or visual hallucinations but did appear to be responding to internal stimuli. Attention and concentration were impaired and memory was limited but none were formally tested. He was alert and oriented to person and place. Insight, judgment and impulse control were all impaired, but improving. Vitals/I&O/Wt Last Vital Signs Temp 97.6 F 09/13/24 22:00 Pulse 126 H 09/14/24 14:00 Resp 18 09/14/24 14:00 BP 174/117 09/14/24 14:00 Pulse Ox 96 09/14/24 14:00 O2 Del Method Room Air 09/14/24 06:00 Weight last 48 hrs Weight 122.515 kg Data NPU 09/08/24 13:04 09/08/24 13:04 A&P Assessment and plan (1) Schizoaffective disorder, bipolar type: (2) Altered mental status: (3) History of Parkinson's disease: (4) Hypertension: Plan This is a 64 year old white male with a history of schizoaffective disorder who presented to the emergency department a short time after some contact with his outpatient providers that appeared to be normal and without impairment now presenting with altered mental status. 1. Continue current medication. Patient received his Invega injection on 08/20/2024. Increase invega to 6mg and plan on increasing injection with 09/17/2024 2. Continue one-to-one with safety concerns of aggression and instability since we have had to take his walker away. We returned his walker 3. Encourage individual, group and milieu therapies. 4. Get collateral information. Speak to outpatient team. Outpatient team report this is a departure from baseline behavior but some family input suggest that he may present like this when he decompensates. Some possible signs of improvement but continued need for additional oversight for safety. 5. Has reported patient on 96-hour hold in error. Given his lack of capacity for informed consent, patient placed on a 96-hour hold. 6. Reorder labs and consider hospitalist consultation to identify a possible source of encephalopathy. Check inflammatory factors procalcitonin, ESR and CRP and evaluate. Labs continue to normalize. PDMP PDMP Reviewed: Not Reviewed Involuntary Hold Information 2 Hold Status: Legal Status: 96 Hour Hold Date/Time Hold Expires: 09/12/2024 Attestations NPU 2 Medical Necessity Statement*: Inpatient hospitalization is medically necessary and the clinically appropriate intervention at this time. We will monitor medications and make changes as indicated. His likely length of stay is 3-5 days. Coding Level of Care Code Acute Code for [facility] Fwd Diagnoses Schizoaffective disorder, bipolar type F25.0 Altered mental status R41.82 Altered mental status type: unspecified History of Parkinson's disease Z86.69 Primary hypertension I10 Hypertension type: primary hypertension
[2024-09-14 17:15] LABS: Glucose Point of Care 142 mg/dL (70-110)
--- NOTE | 2024-09-14 18:10 | PC.NURSE ---
Spoke with Dr. Lacey about pt bp being 174/117 this afternoon. He approved for me to reorder his Losartan and Metoprolol. He wanted those two meds given now in addition to a Clonidine 0.2mg dose now as well.
[2024-09-14 18:27] VITALS: BP 174/117
[2024-09-14] MEDS: cloNIDine 0.1 mg Tablet 0.2 MG PO (18:27)
[2024-09-14] MEDS: losartan 50 mg Tablet 25 MG PO (18:27)
[2024-09-14] MEDS: diphenhydrAMINE 50 mg Capsule PO (19:21)
[2024-09-14] MEDS: hyDROXYzine 25 mg Capsule 50 MG PO (19:22)
[2024-09-14] MEDS: trazodone 50 mg Tablet PO (19:22)
[2024-09-14] MEDS: haloperidol 5 mg Tablet PO (19:22)
[2024-09-14] MEDS: metoprolol tartrate 25 mg Tablet PO (20:40)
[2024-09-14 21:05] VITALS: BP 118/74; PULSE 78; RESP 16; TEMP 37.1; O2SAT 93
[2024-09-15 06:00] VITALS: BP 130/78; PULSE 85; RESP 16; TEMP 36.5; O2SAT 94
[2024-09-15 07:20] LABS: Glucose Point of Care 144 mg/dL (70-110)
[2024-09-15 08:27] VITALS: BP 130/78
[2024-09-15] MEDS: paliperidone ER 6 mg Tablet PO (08:27)
[2024-09-15] MEDS: haloperidol 5 mg Tablet PO ×2 (08:27→19:11)
[2024-09-15] MEDS: metoprolol tartrate 25 mg Tablet PO (08:27)
[2024-09-15] MEDS: losartan 50 mg Tablet 25 MG PO (08:27)
[2024-09-15] MEDS: diphenhydrAMINE 50 mg Capsule PO ×2 (10:37→19:11)
[2024-09-15] MEDS: benztropine 1 mg Tablet PO (10:37)
[2024-09-15] MEDS: LORazepam 2 mg Tablet PO (10:37)
--- NOTE | 2024-09-15 11:01 | PC.NURSE ---
Compulsive behavior Patient continues to wash hands at the sink. Patient uses an abundance of soap each time, about 31 pumps each time. This nurse trying to distract patient. redirect patient to somethings else. Patient given paper towels to dry his hands. Instead of drying his hands with the paper towels, he puts them on his head, stacked up neatly. Patient educated on possible risk of infection from drying out hands. Patient unable to comprehend
[2024-09-15 11:10] LABS: Glucose Point of Care 201 mg/dL (70-110)
[2024-09-15 14:00] VITALS: BP 101/59; PULSE 86; RESP 22; TEMP 36.7; O2SAT 86
--- NOTE | 2024-09-15 16:58 | W.PM.NPUPNS ---
Subjective NPU Subjective: 64-year-old male with schizophrenia previously receiving his Invega Sustenna 156 mg on 08/20/2024 who presented with worsening psychosis. Patient continued to appear psychotic on the unit. He continued to have episodes of loud vocalizations and continued to show evidence of disorganized behavior and disorganized thinking process. He had isolated on the milieu. He had reported that he was part of [employer]. Patient was unable to elaborate regarding his thoughts. Mental Status Exam MSE Comments: This is an obese older white male, with hospital scrubs on with eye contact. He appears older than his stated age likely secondary to be absent dentition. No abnormal involuntary motor movements except for mild psychomotor retardation admixed with psychomotor agitation. Laying comfortably on his bed. He was minimally cooperative with exam in mild distress intermittently. Speech was scanty and increased volume and less dysarthric with normal productivity of speech with the continued presence of verbal outbursts. Mood described as okay. ; Affect was bizarre. Thought process was nonlinear. Prescence of retardation of thinking. Thought content: He reports suicidal or homicidal ideation, there were no delusions reported and no hyperreligious with limited persecutory thinking noted, he did not report auditory or visual hallucinations but did appear to be responding to internal stimuli. Clear evidence of thought blocking. Attention and concentration were impaired and memory was limited but none were formally tested. He was alert and oriented to person only. Patient insight, judgment and impulse control were all impaired. Vitals/I&O/Wt Last Vital Signs Temp 98.1 F 09/15/24 14:00 Pulse 86 09/15/24 14:00 Resp 22 H 09/15/24 14:00 BP 101/59 09/15/24 14:00 Pulse Ox 86 L 09/15/24 14:00 O2 Del Method Room Air 09/15/24 14:00 09/15/24 09/15/24 09/15/24 06:59 14:59 22:59 Intake Total 832 / 832 Balance 832 / 832 Weight last 48 hrs Weight 122.515 kg Data NPU 09/08/24 13:04 09/08/24 13:04 A&P Assessment and plan (1) Schizoaffective disorder, bipolar type: (2) Altered mental status: (3) History of Parkinson's disease: (4) Hypertension: Plan This is a 64 year old white male with a history of schizoaffective disorder who presented to the emergency department a short time after some contact with his outpatient providers that appeared to be normal and without impairment now presenting with altered mental status. 1. Continue current medication. Patient received his Invega injection on 08/20/2024. Increase invega to 6mg and plan on increasing injection with 09/17/2024 2. Continue one-to-one with safety concerns of aggression and instability since we have had to take his walker away. We returned his walker 3. Encourage individual, group and milieu therapies. 4. Get collateral information. Speak to outpatient team. Outpatient team report this is a departure from baseline behavior but some family input suggest that he may present like this when he decompensates. Some possible signs of improvement but continued need for additional oversight for safety. 5. Has reported patient on 96-hour hold in error. Given his lack of capacity for informed consent, patient placed on a 96-hour hold. 6. Reorder labs and consider hospitalist consultation to identify a possible source of encephalopathy. Check inflammatory factors procalcitonin, ESR and CRP and evaluate. Labs continue to normalize. PDMP PDMP Reviewed: Not Reviewed Involuntary Hold Information Hold Status: Legal Status: 96 Hour Hold Date/Time Hold Expires: 09/12/2024 Attestations NPU Medical Necessity Statement*: Inpatient hospitalization is medically necessary and the clinically appropriate intervention at this time. We will monitor medications and make changes as indicated. His likely length of stay is 3-5 days. Coding Level of Care Code Acute Code for [facility] Fwd Diagnoses Schizoaffective disorder, bipolar type F25.0 Altered mental status R41.82 Altered mental status type: unspecified History of Parkinson's disease Z86.69 Primary hypertension I10 Hypertension type: primary hypertension
[2024-09-15] MEDS: trazodone 50 mg Tablet PO (19:11)
[2024-09-15] MEDS: hyDROXYzine 25 mg Capsule 50 MG PO (19:11)
--- NOTE | 2024-09-15 22:20 | PC.NURSE ---
vs not taken per charge nurse resp 16
[2024-09-16 08:22] LABS: Glucose Point of Care 151 mg/dL (70-110)
[2024-09-16] MEDS: metoprolol tartrate 25 mg Tablet PO ×2 (08:55→20:31)
[2024-09-16] MEDS: paliperidone ER 6 mg Tablet PO (08:55)
[2024-09-16] MEDS: losartan 50 mg Tablet 25 MG PO (08:56)
[2024-09-16 11:30] LABS: Glucose Point of Care 189 mg/dL (70-110)
[2024-09-16 14:00] VITALS: BP 154/82; PULSE 107; RESP 17; TEMP 37; O2SAT 94
--- NOTE | 2024-09-16 15:51 | P.NPUPN_ITS ---
Subjective NPU 2 Subjective: 64-year-old male with schizophrenia prev iously receiving his Invega Sustenna 156 mg on 08/20/2024 who presented with worsening psychosis. The patient remained on 6 mg of oral Invega as well. He had continued to have loud vocalizations and also appeared to have periods of intense anger. The patient had also continued to have periods of odd speech patterns often having limited productive speech. The patient had stated today that he wanted to go to a different hospital. He had not endorsed having any suicidal thoughts. He had stated that he was concerned that he may have cancer. The patient was unable to provide any information supportive of his need for any further medical treatment for cancer. He had reported continued pain issues. Staff notes the patient had spit out his medications earlier today. Mental Status Exam 2 MSE Comments: * This is an obese older white male, with hospital scrubs on with eye contact. He appears older than his stated age likely secondary to be absent dentition. No abnormal involuntary motor movements except for mild psychomotor retardation admixed with psychomotor agitation. Laying comfortably on his bed. He was more cooperative with exam in mild distress.. Speech was more productive today and increased volume and less dysarthric with normal productivity of speech with the continued presence of verbal outbursts. Mood described as allright. Affect was more irritable. Thought process was more linear. Thought content: He reports suicidal or homicidal ideation, there were no delusions reported and no hyperreligious with limited persecutory thinking noted, he did not report auditory or visual hallucinations but did appear to be responding to internal stimuli. Clear evidence of thought blocking. Attention and concentration were impaired and memory was limited but none were formally tested. He was alert and oriented to person only. Patient insight, judgment and impulse control were all impaired. Vitals/I&O/Wt Last Vital Signs Temp 98.6 F 09/16/24 14:00 Pulse 107 H 09/16/24 14:00 Resp 17 09/16/24 14:00 BP 154/82 09/16/24 14:00 Pulse Ox 94 09/16/24 14:00 O2 Del Method Room Air 09/15/24 14:00 Data NPU 09/08/24 13:04 09/08/24 13:04 A&P Assessment and plan (1) Schizoaffective disorder, bipolar type: (2) Altered mental status: (3) History of Parkinson's disease: (4) Hypertension: Plan This is a 64 year old white male with a history of schizoaffective disorder who presented to the emergency department a short time after some contact with his outpatient providers that appeared to be normal and without impairment now presenting with altered mental status. 1. Continue current medication. Patient received his Invega injection on 08/20/2024. Continue invega to 6mg and plan on increasing injection to 234mg with 09/17/2024 2. Continue one-to-one with safety concerns of aggression and instability since we have had to take his walker away. We returned his walker 3. Encourage individual, group and milieu therapies. 4. Get collateral information. Speak to outpatient team. Outpatient team report this is a departure from baseline behavior but some family input suggest that he may present like this when he decompensates. Some possible signs of improvement but continued need for additional oversight for safety. 5. Has reported patient on 96-hour hold in error. Given his lack of capacity for informed consent, patient placed on a 96-hour hold. 6. Reorder labs and consider hospitalist consultation to identify a possible source of encephalopathy. Check inflammatory factors procalcitonin, ESR and CRP and evaluate. Labs continue to normalize. PDMP PDMP Reviewed: Not Reviewed Involuntary Hold Information 2 Hold Status: Legal Status: 96 Hour Hold Date/Time Hold Expires: 09/12/2024 Attestations NPU 2 Medical Necessity Statement*: Inpatient hospitalization is medically necessary and the clinically appropriate intervention at this time. We will monitor medications and make changes as indicated. His likely length of stay is 5-7 days. Coding Level of Care Code Acute Code for [facility] Fwd Diagnoses Schizoaffective disorder, bipolar type F25.0 Altered mental status R41.82 Altered mental status type: unspecified History of Parkinson's disease Z86.69 Primary hypertension I10 Hypertension type: primary hypertension
[2024-09-16 17:08] LABS: Glucose Point of Care 173 mg/dL (70-110)
[2024-09-16 20:19] VITALS: BP 162/80; PULSE 90; RESP 17; TEMP 36.7; O2SAT 90
[2024-09-16] MEDS: OLANZapine 5 mg ODT PO (20:31)
[2024-09-16] MEDS: trazodone 50 mg Tablet PO (20:31)
[2024-09-17 06:00] VITALS: BP 165/99; PULSE 93; RESP 17; TEMP 36.6; O2SAT 93
[2024-09-17 07:24] LABS: Glucose Point of Care 147 mg/dL (70-110)
[2024-09-17 08:26] VITALS: BP 165/99
[2024-09-17] MEDS: metoprolol tartrate 25 mg Tablet PO ×2 (08:26→19:44)
[2024-09-17] MEDS: losartan 50 mg Tablet 25 MG PO (08:26)
[2024-09-17] MEDS: paliperidone ER 6 mg Tablet PO (08:26)
--- NOTE | 2024-09-17 11:07 | PC.NURSE ---
Sister Lenora called to leave her phone number if pt wanted to call her. She wanted to let us know that we could all [facility], that pt has been admitted to both of those locations in the past. She states that usually it is because pt would stop taking his medications. She states that he has been on an injection, but likely stopped everything else.
[2024-09-17 11:14] LABS: Glucose Point of Care 118 mg/dL (70-110)
[2024-09-17] MEDS: paliperidone palmitate 234 mg Syringe IM (12:31)
[2024-09-17 14:00] VITALS: BP 156/97; PULSE 108; RESP 18; TEMP 37.2; O2SAT 93
--- NOTE | 2024-09-17 16:44 | P.NPUPN_ITS ---
Subjective NPU 2 Subjective: 64-year-old male with schizophrenia prev iously receiving his Invega Sustenna 156 mg on 08/20/2024 who presented with worsening psychosis. The patient received Invega Sustenna 234 mg today without any noted side effects. He continued to have periods of some clarity and other periods where he was less confused followed by other periods where he was having repeated vocalizations and continued odd patterns of speech. Patient had continued to report paranoia. He had reported that he was concerned about his neighbors and expressed worry that the cable news was run by people from [place]. He had not been aggressive on the unit. He was redirectable but continued require one-to-one observation. Mental Status Exam 2 MSE Comments: * This is an obese older white male, with hospital scrubs on with eye contact. He appears older than his stated age likely secondary to be absent dentition. No abnormal involuntary motor movements except for mild psychomotor retardation admixed with psychomotor agitation. Laying comfortably on his bed. He was more cooperative with exam in mild distress. Speech was more productive today and increased volume and less dysarthric with normal productivity of speech with the continued presence of verbal outbursts. Mood described as okay. Affect was surly. Thought process was more linear. Thought content: He reports no suicidal or homicidal ideation, there were no delusions reported and no hyperreligiosity with limited persecutory thinking noted, he did not report auditory or visual hallucinations but did appear to be responding to internal stimuli at times with periods of thought blocking. Attention and concentration were impaired and memory was limited but none were formally tested. He was alert and oriented to person only. Patient insight, judgment and impulse control were all impaired. Vitals/I&O/Wt Last Vital Signs Temp 99 F 09/17/24 14:00 Pulse 108 H 09/17/24 14:00 Resp 18 09/17/24 14:00 BP 156/97 09/17/24 14:00 Pulse Ox 93 09/17/24 14:00 O2 Del Method Room Air 09/17/24 06:00 Data NPU 09/08/24 13:04 09/08/24 13:04 A&P Assessment and plan (1) Schizoaffective disorder, bipolar type: (2) Altered mental status: (3) History of Parkinson's disease: (4) Hypertension: Plan This is a 64 year old white male with a history of schizoaffective disorder who presented to the emergency department a short time after some contact with his outpatient providers that appeared to be normal and without impairment now presenting with altered mental status. 1. Continue current medication. Patient received his Invega injection of 234mg on 09/17/24. Continue invega 6mg orally for now. 2. Continue one-to-one with safety concerns of aggression and instability since we have had to take his walker away. We returned his walker 3. Encourage individual, group and milieu therapies. 4. Get collateral information. Speak to outpatient team. Outpatient team report this is a departure from baseline behavior but some family input suggest that he may present like this when he decompensates. Some possible signs of improvement but continued need for additional oversight for safety. 5. Has reported patient on 96-hour hold in error. Given his lack of capacity for informed consent, patient placed on a 96-hour hold. 6. Reorder labs and consider hospitalist consultation to identify a possible source of encephalopathy. Check inflammatory factors procalcitonin, ESR and CRP and evaluate. Labs continue to normalize. PDMP PDMP Reviewed: Not Reviewed Involuntary Hold Information 2 Hold Status: Legal Status: 96 Hour Hold Date/Time Hold Expires: 09/12/2024 Attestations NPU 2 Medical Necessity Statement*: Inpatient hospitalization is medically necessary and the clinically appropriate intervention at this time. We will monitor medications and make changes as indicated. His likely length of stay is 5-7 days. Coding Level of Care Code Acute Code for [facility] Fwd Diagnoses Schizoaffective disorder, bipolar type F25.0 Altered mental status R41.82 Altered mental status type: unspecified History of Parkinson's disease Z86.69 Primary hypertension I10 Hypertension type: primary hypertension
[2024-09-17 16:54] LABS: Glucose Point of Care 125 mg/dL (70-110)
[2024-09-17] MEDS: diphenhydrAMINE 50 mg/mL SDV 1mL IM (19:56)
[2024-09-17] MEDS: LORazepam 2 mg/mL INJ 1 mL IM (19:56)
[2024-09-17] MEDS: haloperidol inj 5 mg/mL INJ 1 mL IM (19:57)
[2024-09-17 22:00] VITALS: BP 178/102; PULSE 116; RESP 18; O2SAT 94
--- NOTE | 2024-09-17 23:30 | PC.NURSE ---
BEHAVIORAL At approximately 1915 this nurse performed a shift assessment on pt where he denied si/hi/avh. After this nurse came back into the nurses station pt started yelling at the sitter stating that he is a fucking liar and he wants him out of his room. This nurse informed the pt that the sitter needs to watch him but he can sit in the hallway. Pt did not like this answer and proceeded to shut his door. This nurse informed pt that he either needs to keep the door open and the sitter can sit in the hallway or the sitter can sit in his room with the door shut. pt began yelling at this nurse that we are all fucking nazis and we should all be lynched. Debora RAMIREZ attempted to talk to pt and pt proceeded to yell at PACKAGING MATERIALS INSPECTOR because she is lying about her age. Pt then proceeded to point at WALLACE Ramos and scream he needs to be lynched, that thai name is Al. This nurse notified housekeeping staff of pt behaviors and requested her assistance while other nursing staff notified security. This nurse then called Dr. Fermin at 1935 for an order for Ativan 2mg IM due to it not being on pts MAR. Dr. Fermin agreed and Ativan 2mg IM was ordered. This nurse and Debora RAMIREZ pulled medications. Once installation supervisor and security came down nursing staff and security entered pts room at 194. Amber Nortoninstallation supervisor was able to get pt to take his 2100 dose of metoprolol and pt agreed to take injections willingly. Benadryl 50mg IM was given in pts left deltoid by ASHLEY Cazares, and Ativan 2mg IM and Haldol 5mg IM was given in pts right deltoid by Errol ClarkSupervisor Assembly [employer]. While staff was exiting pts room he yelled that we were a bunch of fucking liars. Pt proceeded to go to the bathroom, lay down in bed, then shortly fell asleep. Pt is now observed resting in bed with eyes closed and sitter is in the hallway. Behavioral monitoring continues
--- NOTE | 2024-09-18 06:29 | PC.NURSE ---
vs not completed per charge nurse resp 18
[2024-09-18 07:44] LABS: Glucose Point of Care 144 mg/dL (70-110)
[2024-09-18] MEDS: paliperidone ER 6 mg Tablet PO (08:51)
[2024-09-18] MEDS: losartan 50 mg Tablet 25 MG PO (08:51)
[2024-09-18] MEDS: metoprolol tartrate 25 mg Tablet PO (08:52)
[2024-09-18 11:23] LABS: Glucose Point of Care 121 mg/dL (70-110)
[2024-09-18 14:00] VITALS: BP 131/80; PULSE 114; RESP 18; O2SAT 98
--- NOTE | 2024-09-18 16:14 | P.NPUPN_ITS ---
Subjective NPU 2 Subjective: 64-year-old male with schizophrenia prev iously receiving his Invega Sustenna 156 mg on 08/20/2024 who presented with worsening psychosis. The patient received Invega Sustenna 234 mg without any noted side effects reported today. The patient had become aggressive and had made a threat towards a male one-to-one provider. He had stated that he had been feeling better. He had stated that he would like to take a shower and was ready to speak in front of the director of teenage activities tomorrow regarding his hearing. He had reported desire to live independently. He had continued to report of general distrust towards others but did not appear to have any extended periods where he would be staring excessively with occasional periods of loud vocalizations. Mental Status Exam 2 MSE Comments: * This is an obese older white male, with hospital scrubs on with eye contact. He appears older than his stated age likely secondary to be absent dentition. No abnormal involuntary motor movements except for mild psychomotor retardation admixed with psychomotor agitation. There was some evidence of a slow but steady gait. Laying comfortably on his bed. He was more cooperative with exam in mild distress. Speech was more productive today and increased volume and less dysarthric with normal productivity of speech with the continued presence of verbal outbursts. Mood described as allright. Affect was somewhat flat with limited facial expression. Thought process was more linear. Thought content: He reports no suicidal or homicidal ideation, there were no delusions reported and no hyperreligiosity with limited persecutory thinking noted, he did not report auditory or visual hallucinations but did appear to be responding to internal stimuli at times with periods of thought blocking. Attention and concentration were impaired and memory was limited but none were formally tested. He was alert and oriented to person only. Patient insight, judgment and impulse control were all impaired. No clear pill rolling tremor appreciated. Vitals/I&O/Wt Last Vital Signs Temp 99 F 09/17/24 14:00 Pulse 114 H 09/18/24 14:00 Resp 18 09/18/24 14:00 BP 131/80 09/18/24 14:00 Pulse Ox 98 09/18/24 14:00 O2 Del Method Room Air 09/18/24 14:00 Data NPU 09/08/24 13:04 09/08/24 13:04 A&P Assessment and plan (1) Schizoaffective disorder, bipolar type: (2) Altered mental status: (3) History of Parkinson's disease: (4) Hypertension: Plan This is a 64 year old white male with a history of schizoaffective disorder who presented to the emergency department a short time after some contact with his outpatient providers that appeared to be normal and without impairment now presenting with altered mental status. 1. Continue current medication. Patient received his Invega injection of 234mg on 09/17/24. Continue invega 6mg orally for now. 2. Continue one-to-one while patient has walker. 3. Encourage individual, group and milieu therapies. 4. Get collateral information. Speak to outpatient team. Outpatient team report this is a departure from baseline behavior but some family input suggest that he may present like this when he decompensates. Some possible signs of improvement but continued need for additional oversight for safety. 5. Patient has 21 day hearing scheduled for tommorow. 6. Reorder labs and consider hospitalist consultation to identify a possible source of encephalopathy. Check inflammatory factors procalcitonin, ESR and CRP and evaluate. Labs continue to normalize. PDMP PDMP Reviewed: Not Reviewed Involuntary Hold Information 2 Hold Status: Legal Status: 21 Day Hold Date/Time Hold Expires: 21d court on 09/19/24 Attestations NPU 2 Medical Necessity Statement*: Inpatient hospitalization is medically necessary and the clinically appropriate intervention at this time. We will monitor medications and make changes as indicated. His likely length of stay is 5-7 days. Coding Level of Care Code Acute Code for [facility] Fw Diagnoses Schizoaffective disorder, bipolar type F25.0 Altered mental status R41.82 Altered mental status type: unspecified History of Parkinson's disease Z86.69 Primary hypertension I10 Hypertension type: primary hypertension
[2024-09-18] MEDS: ziprasidone 20 mg/mL SDV IM (18:30)
[2024-09-18] MEDS: water for injection-sterile 10 ML (18:31)
--- NOTE | 2024-09-18 18:33 | PC.NURSE ---
Pt called this nurse to his room stating that he wanted to see the Dr. I let Dr. Lacey know that he would like to see him before he left. About an hour later he came out holding his Rt side up under his ribs. This nurse asked him if he was having pain and he stated yes, that's why he needed to see the Dr. He then went on to say that he wanted his sitter Mary and the other nurse Aicha to stay out of his room, he didn't trust them. He stated that he doesn't trust any of the men in this hospital really. I called Dr. Lacey and let him know about he pain in his Rt side and that his paranoia was really starting to increase. Dr. Lacey ordered that I give him a one time injection of Geodon 20mg. He stated that we could also put in an order for a KUB to see if maybe pt was constipated or if something else maybe shows up. I did let Dr. Lacey know that he has a very large BM yesterday when we were here. Pt allowed for this nurse to give his injection (see MAR). KUB is being ordered.
--- NOTE | 2024-09-18 18:37 | XRR_ITS ---
PROCEDURE INFORMATION: Exam: XR Abdomen Exam date and time: 09/18/2024 7:16 PM Age: 64 years old Clinical indication: Abdominal pain; Additional info: RT sided abd pain TECHNIQUE: Imaging protocol: Radiologic exam of the abdomen. Views: Frontal supine view of the abdomen. 1 View. COMPARISON: CT abdomen pelvis w con* [id number] 05/15/2024 3:44 PM FINDINGS: Gastrointestinal tract: Nonspecific bowel gas pattern. Mild scattered colonic gas and stool. Vasculature: Multiple pelvic calcifications likely reflect pelvic phleboliths. No abnormal calcifications are seen otherwise. No indication of free air. Bones/joints: Spondylotic change lumbar spine. Other findings: Psoas margins appear distinct. XR/XR KUB portable [id number] IMPRESSION: Nonspecific nonobstructive bowel gas pattern. Suggestion of bilateral lower pelvic phleboliths.
[2024-09-18 19:37] VITALS: BP 137/88; PULSE 104; RESP 18; O2SAT 94
[2024-09-19 06:00] VITALS: BP 160/94; PULSE 112; RESP 18; TEMP 36.4; O2SAT 96
[2024-09-19 09:53] VITALS: BP 160/64
[2024-09-19] MEDS: paliperidone ER 6 mg Tablet PO (09:53)
[2024-09-19] MEDS: losartan 50 mg Tablet 25 MG PO (09:53)
[2024-09-19] MEDS: metoprolol tartrate 25 mg Tablet PO ×2 (09:53→20:52)
[2024-09-19] MEDS: acetaminophen 325 mg Tablet 650 MG PO (09:55)
[2024-09-19 14:00] VITALS: BP 158/93; PULSE 83; RESP 14; TEMP 37.5
--- NOTE | 2024-09-19 14:44 | PC.NURSE ---
Patient continues to remove shirt and states he's not ready to put on a new shirt. Patient also states I don't want my blood pressure taken yet
--- NOTE | 2024-09-19 15:06 | PC.NURSE ---
Off unit with deputy at 1506 for [address]
--- NOTE | 2024-09-19 16:22 | PC.NURSE ---
Back on unit at 1618, no issues.
--- NOTE | 2024-09-19 16:46 | P.NPUPN_ITS ---
Subjective NPU 2 Subjective: 64-year-old male with schizophrenia prev iously receiving his Invega Sustenna 156 mg on 08/20/2024 who presented with worsening psychosis. The patient continued to have odd and unusual behaviors on the unit and appeared more confused later at night. He had gone to speak with the angiography nurse today regarding his 21-day hearing as he had requested that he stay for a shorter period of time. He had been redirectable and his one-to-one was removed today. He continued to have periods of loud shreiking. Patient had reported his relative distrust of others. He had reported adequate sleep. He did not report any side effects from his medications. He had complained of abdominal discomfort but reported that he was feeling better today. Mental Status Exam 2 MSE Comments: * This is an obese older white male, with hospital scrubs on with eye contact. He appears older than his stated age likely secondary to be absent dentition. No abnormal involuntary motor movements except for mild psychomotor retardation. There was some evidence of a slow but steady gait. Laying comfortably on his bed. He was more cooperative with exam in mild distress. Speech was more productive today and increased volume and less dysarthric with normal productivity of speech with the continued presence of verbal outbursts. Mood described as okay. Affect was blunted. Thought process was linear. Thought content: He reports no suicidal or homicidal ideation, there were no delusions reported and no hyperreligiosity with limited persecutory thinking noted, he did not report auditory or visual hallucinations but did appear to be responding to internal stimuli at times with less frequent periods of thought blocking. Attention and concentration were impaired and memory was limited but none were formally tested. He was alert and oriented to person only. Patient insight, judgment and impulse control were all impaired. No clear pill rolling tremor appreciated. Vitals/I&O/Wt Last Vital Signs Temp 97.6 F 09/19/24 06:00 Pulse 112 H 09/19/24 06:00 Resp 18 09/19/24 06:00 BP 160/64 09/19/24 09:53 Pulse Ox 96 09/19/24 06:00 O2 Del Method Room Air 09/19/24 06:00 Data NPU 09/08/24 13:04 09/08/24 13:04 A&P Assessment and plan (1) Schizoaffective disorder, bipolar type: (2) Altered mental status: (3) History of Parkinson's disease: (4) Hypertension: Plan This is a 64 year old white male with a history of schizoaffective disorder who presented to the emergency department a short time after some contact with his outpatient providers that appeared to be normal and without impairment now presenting with altered mental status. 1. Continue current medication. Patient received his Invega injection of 234mg on 09/17/24. Continue invega 6mg orally for now. 2. Continue one-to-one while patient has walker. 3. Encourage individual, group and milieu therapies. 4. Get collateral information. Speak to outpatient team. Outpatient team report this is a departure from baseline behavior but some family input suggest that he may present like this when he decompensates. Some possible signs of improvement but continued need for additional oversight for safety. 5. Patient has 21 day hearing scheduled for tommorow. PDMP PDMP Reviewed: Not Reviewed Involuntary Hold Information 2 Hold Status: Legal Status: 21 Day Hold Date/Time Hold Expires: 10/10/24 Attestations NPU 2 Medical Necessity Statement*: Inpatient hospitalization is medically necessary and the clinically appropriate intervention at this time. We will monitor medications and make changes as indicated. His likely length of stay is 3-4 days. Coding Level of Care Code Acute Code for [facility] Diagnoses Schizoaffective disorder, bipolar type F25.0 Altered mental status R41.82 Altered mental status type: unspecified History of Parkinson's disease Z86.69 Primary hypertension I10 Hypertension type: primary hypertension
[2024-09-19 17:20] LABS: Glucose Point of Care 151 mg/dL (70-110)
--- NOTE | 2024-09-19 18:11 | PC.NURSE ---
Behavior Patient yelling out at staff, are you two lesbians? Patient yelling out and taking off his shirt. Patient taking off of his shirt on bench and shaking it out around his body. This nurse offered patient a new shirt. Patient agreed to put on the new shirt. After a while, patient removed his shirt again, this time not willing to redress himself, continuously and compulsively shaking his shirt out. Patient unable to voice the reasoning behind this action. WALLACE Gallo was eventually able to get him to put his shirt on.
[2024-09-19 20:13] VITALS: BP 129/78; PULSE 112; RESP 18; TEMP 36.8; O2SAT 96
[2024-09-20 06:00] VITALS: BP 153/85; PULSE 109; RESP 18; TEMP 36.7; O2SAT 95
[2024-09-20 08:31] VITALS: BP 153/85
[2024-09-20] MEDS: metoprolol tartrate 25 mg Tablet PO (08:31)
[2024-09-20] MEDS: acetaminophen 325 mg Tablet 650 MG PO (08:31)
[2024-09-20] MEDS: losartan 50 mg Tablet 25 MG PO (08:31)
[2024-09-20] MEDS: paliperidone ER 6 mg Tablet PO (08:31)
[2024-09-20] MEDS: haloperidol 5 mg Tablet PO (08:31)
--- NOTE | 2024-09-20 09:19 | PC.NURSE ---
Haldol Patient observed stamping his walker on the floor repeatedly, next to the bench. This nurse quickly went to assist patient. Patient reports that there is a scorpion. This nurse went to check underneath the bench. Patient started yelling, You're gonna get stung! Patient voice raised saying that somebody needs to get thing, I am not going to sit on that bench until somebody gets that thing! This nurse did not see anything under or near the bench, no spiders, scorpions, flies, etc. Patient escorted to his room. Security agreeable to inspect behind the bench for the benefit of the patient. No scorpions, etc observed. Administered haldol [address]mg PO[address] Lacey notified.
[2024-09-20 11:20] LABS: Glucose Point of Care 199 mg/dL (70-110)
[2024-09-20 11:43] LABS: Glucose Point of Care 163 mg/dL (70-110)
--- NOTE | 2024-09-20 12:41 | P.NPUPN_ITS ---
Subjective NPU 2 Subjective: 64-year-old male with schizophrenia prev iously receiving his Invega Sustenna 156 mg on 08/20/2024 who presented with worsening psychosis. Patient continued to have loud vocalizations. He had complained of seeing scorpions today and he had attempted to wring out his shirt in efforts to look for something that he thought were bugs. He had continued to report that he wished to go home. He had also reported that he needed a vacation and requested that someone dropped him in [place] to visit his half-brother. The patient had been briefly off one-to-one yesterday. There were no recent acts of aggression. The patient had reported that he had been previously diagnosed with Parkinson's in the by [facility]. Mental Status Exam 2 MSE Comments: * This is an obese older white male, with hospital scrubs on with eye contact. He appears older than his stated age likely secondary to be absent dentition. No abnormal involuntary motor movements except for mild psychomotor retardation. There was some evidence of a slow but steady gait. Laying comfortably on his bed. He was more cooperative with exam in mild distress. Speech was more productive today and continued loud shrieks during the interview. Mood described as okay Affect wasmostly flat with periods of intense outbursts. Thought process was linear. Thought content: He reports no suicidal or homicidal ideation, there were no delusions reported and no hyperreligiosity with limited persecutory thinking noted, he did not report auditory or visual hallucinations but did appear to be responding to internal stimuli at times with less frequent periods of thought blocking. Attention and concentration were impaired and memory was limited but none were formally tested. He was alert and oriented to person only. Patient insight, judgment and impulse control were all impaired. No clear pill rolling tremor appreciated.No parkinsonian symptoms appreciated. Vitals/I&O/Wt Last Vital Signs Temp 98.1 F 09/20/24 06:00 Pulse 109 H 09/20/24 06:00 Resp 18 09/20/24 06:00 BP 153/85 09/20/24 08:31 Pulse Ox 95 09/20/24 06:00 O2 Del Method Room Air 09/19/24 06:00 09/19/24 09/20/24 09/20/24 22:59 06:59 14:59 Intake Total 472 / 472 Output Total 401 / 401 Balance 71 / Data NPU 09/08/24 13:04 09/08/24 13:04 A&P Assessment and plan (1) Schizoaffective disorder, bipolar type: (2) Altered mental status: (3) History of Parkinson's disease: (4) Hypertension: Plan This is a 64 year old white male with a history of schizoaffective disorder who presented to the emergency department a short time after some contact with his outpatient providers that appeared to be normal and without impairment now presenting with altered mental status. 1. Continue current medication. Patient received his Invega injection of 234mg on 09/17/24. Continue invega 6mg orally for now. Add Depakote 500mg ER today. 2. Continue one-to-one while patient has walker. 3. Encourage individual, group and milieu therapies. 4. Get collateral information. Speak to outpatient team. Outpatient team report this is a departure from baseline behavior but some family input suggest that he may present like this when he decompensates. Some possible signs of improvement but continued need for additional oversight for safety. 5. Patient now on 21 day hold. PDMP PDMP Reviewed: Not Reviewed Involuntary Hold Information 2 Hold Status: Legal Status: 21 Day Hold Date/Time Hold Expires: 10/10/24 Attestations NPU 2 Medical Necessity Statement*: Inpatient hospitalization is medically necessary and the clinically appropriate intervention at this time. We will monitor medications and make changes as indicated. His likely length of stay is 3-4 days. Coding Level of Care Code Acute Code for [facility] Diagnoses Schizoaffective disorder, bipolar type F25.0 Altered mental status R41.82 Altered mental status type: unspecified History of Parkinson's disease Z86.69 Primary hypertension I10 Hypertension type: primary hypertension
[2024-09-20] MEDS: divalproex ER 500 mg Tablet (24H) PO (13:29)
[2024-09-20 14:00] VITALS: BP 134/84; PULSE 101; RESP 17; TEMP 36.5; O2SAT 94
[2024-09-20] MEDS: ziprasidone hcl 20 mg Capsule PO (15:54)
--- NOTE | 2024-09-20 16:24 | PC.NURSE ---
Fernandodon Administered geodon 20mg PO to patient after talking with Dr. Lacey about patient's behavior. Patient sitting on bench, yelling loudly. Patient demanding to be picked up and taken to a hospital, specifically a hospital in [place]. This nurse told patient that he is in a hospital currently. Patient yelled that he is in a patient correction. Patient also said that we aren't nurses that we are witches and we do not care about him. Patient said that he needs to go to the other hospital so that he can have a colonoscopy, that he is due for a colonoscopy weeks ago but decided against the procedure because he didn't trust the doctors. Staff talked to patient in a calm, even and gentle tone. Patient eventually went to his room and laid on his bed. Patient currently resting on bed, supine position. Respirations even and unlabored.
[2024-09-20 19:18] VITALS: RESP 16
[2024-09-21 06:00] VITALS: BP 157/87; PULSE 90; RESP 18; TEMP 36.4; O2SAT 95
[2024-09-21 07:31] LABS: Glucose Point of Care 145 mg/dL (70-110)
[2024-09-21] MEDS: paliperidone ER 6 mg Tablet PO (08:18)
[2024-09-21] MEDS: divalproex ER 500 mg Tablet (24H) PO (08:18)
[2024-09-21] MEDS: losartan 50 mg Tablet 25 MG PO (08:19)
[2024-09-21] MEDS: metoprolol tartrate 25 mg Tablet PO ×2 (08:19→20:52)
--- NOTE | 2024-09-21 11:39 | PC.NURSE ---
Spoke with Dr. Lacey about restarting pt Metformin. Home meds were not initially restarted because pt was refusing to take anything when he first admitted. Pt has since been taking meds. Dr. Lacey agreed to restart his Metformin and move accuchecks to BID.
[2024-09-21 11:56] LABS: Glucose Point of Care 209 mg/dL (70-110)
--- NOTE | 2024-09-21 12:32 | P.NPUPN_ITS ---
Subjective NPU 2 Subjective: 64-year-old male with schizophrenia prev iously receiving his Invega Sustenna 156 mg on 08/20/2024 who presented with worsening psychosis. The patient had appeared better today. There was less vocalizing noticed. He had denied any auditory or visual hallucinations. He remained off of one-to-one. There had been no aggression. He had appeared more goal oriented and was talking about wanting to go home soon. He had been compliant with his oral intake at this time. Mental Status Exam 2 MSE Comments: * This is an obese older white male, with hospital scrubs on with eye contact. He appears older than his stated age likely secondary to be absent dentition. No abnormal involuntary motor movements except for mild psychomotor retardation. There was some evidence of a slow but steady gait. Sitting pleasantly in the day room. He was more cooperative with exam in no acute distress. Speech was more productive today and occasional periods of laughter. Mood described as good. Affect was brighter today with periods of intense laughing but appropriately timed. Thought process was linear. Thought content: He reports no suicidal or homicidal ideation, there were no delusions reported and no hyperreligiosity with limited persecutory thinking noted. He did not report auditory or visual hallucinations and did not appear to be responding to internal stimuli at times with less frequent periods of thought blocking. Attention and concentration were improved and memory was limited but none were formally tested. He was alert and oriented to person only. Patient insight, judgment and impulse control were all impaired. No clear pill rolling tremor appreciated.No parkinsonian symptoms appreciated. Vitals/I&O/Wt Last Vital Signs Temp 97.6 F 09/21/24 06:00 Pulse 90 09/21/24 06:00 Resp 18 09/21/24 06:00 BP 157/87 09/21/24 06:00 Pulse Ox 95 09/21/24 06:00 O2 Del Method Room Air 09/19/24 06:00 09/20/24 09/21/24 09/21/24 22:59 06:59 14:59 Intake Total 0 / 0 Output Total 401 / 401 Balance -401 / -401 Weight last 48 hrs Weight 93.349 kg Data NPU 09/08/24 13:04 09/08/24 13:04 A&P Assessment and plan (1) Schizoaffective disorder, bipolar type: (2) Altered mental status: (3) History of Parkinson's disease: (4) Hypertension: Plan This is a 64 year old white male with a history of schizoaffective disorder who presented to the emergency department a short time after some contact with his outpatient providers that appeared to be normal and without impairment now presenting with altered mental status. 1. Continue current medication. Patient received his monthly Invega injection of 234mg on 09/17/24. Continue invega 6mg orally for now. Increase Depakote 750mg ER today. 2. Continue one-to-one while patient has walker. 3. Encourage individual, group and milieu therapies. 4. Get collateral information. Speak to outpatient team. Outpatient team report this is a departure from baseline behavior but some family input suggest that he may present like this when he decompensates. Some possible signs of improvement but continued need for additional oversight for safety. 5. Patient now on 21 day hold. PDMP PDMP Reviewed: Not Reviewed Involuntary Hold Information 2 Hold Status: Legal Status: 21 Day Hold Date/Time Hold Expires: 10/10/24 Attestations NPU 2 Medical Necessity Statement*: Inpatient hospitalization is medically necessary and the clinically appropriate intervention at this time. We will monitor medications and make changes as indicated. His likely length of stay is 3-4 days. Coding Level of Care Code Acute Code for [facility] Diagnoses Schizoaffective disorder, bipolar type F25.0 Altered mental status R41.82 Altered mental status type: unspecified History of Parkinson's disease Z86.69 Primary hypertension I10 Hypertension type: primary hypertension
[2024-09-21 14:00] VITALS: BP 150/74; PULSE 98; RESP 18; TEMP 36.9; O2SAT 93
[2024-09-21 17:39] LABS: Glucose Point of Care 200 mg/dL (70-110)
[2024-09-21] MEDS: metformin 500 mg Tablet PO (18:50)
[2024-09-21 20:04] VITALS: BP 152/86; PULSE 99; RESP 18; TEMP 36.7; O2SAT 95
[2024-09-21] MEDS: acetaminophen 325 mg Tablet 650 MG PO (21:09)
[2024-09-22] MEDS: loperamide 2 mg Capsule PO (05:11)
[2024-09-22 05:47] VITALS: BP 169/88; PULSE 108; RESP 18; O2SAT 96
[2024-09-22 07:37] LABS: Glucose Point of Care 149 mg/dL (70-110)
[2024-09-22] MEDS: metformin 500 mg Tablet PO (08:19)
[2024-09-22] MEDS: divalproex ER 250 mg Tablet (24H) 750 MG PO (08:20)
[2024-09-22] MEDS: metoprolol tartrate 25 mg Tablet PO (08:20)
[2024-09-22] MEDS: losartan 50 mg Tablet 25 MG PO (08:20)
[2024-09-22] MEDS: paliperidone ER 6 mg Tablet PO (08:20)
[2024-09-22 14:00] VITALS: BP 158/79; PULSE 118; RESP 18; TEMP 36.6; O2SAT 98
--- NOTE | 2024-09-22 14:26 | P.NPUDS_ITS ---
Diagnoses at Discharge Discharge Diagnosis (1) Schizoaffective disorder, bipolar type: Status: Chronic (2) Altered mental status: Status: Acute Qualifiers: Altered mental status type: unspecified Qualified Code(s): R41.82 - Altered mental status, unspecified (3) History of Parkinson's disease: Status: Chronic (4) Hypertension: Status: Acute Qualifiers: Hypertension type: primary hypertension Qualified Code(s): I10 - Essential (primary) hypertension Reason for Visit Reason for Visit: AMS Brief History: History of Present Illness Benedicto Amaral is a 64 year old male who presented to the emergency department with the following report: Chief Complaint: Altered Mental Status Stated Complaint: AMS Time Seen by Provider: 09/05/24 20:39 History of Present Illness: Benedicto, a male patient with a history of schizophrenia, was found outside in the lobby of his apartment complex exhibiting abnormal behavior. He was initially unresponsive to commands and making repetitive statements, primarily saying Holy Father and his birthday. The patient was observed earlier in the day by some individuals who thought he was acting abnormally. When emergency services initially arrived, he had already left the scene. He was later found and brought in for evaluation. Benedicto is currently minimally responsive, only occasionally responding to his name or making repetitive statements. He does not follow commands, making it difficult to assess for any weakness. His blood pressure was recorded as 140/100. Benedicto appears to be experiencing altered mental status of unclear duration. He is not responding appropriately to questions and has limited verbal output. When asked if he is hurting anywhere or if he has taken any medications recently, he does not provide a clear answer. The patient's ability to perform daily activ ities is likely impaired given his current mental state, though specific details are not available.. He is admitted to the neuropsychiatric unit for definitive treatment of those issues. He is known to [facility] psychiatry through outpatient services over the past 2-1/2 years and he most recently had an outpatient med management appointment without concerns 08/20/2024 and then had another contact with case management services on 08/29 which also seem to be without problem. He did not presented to the emergency department with altered mental status. He has presented to the unit with some laboratory abnormalities and seeming to be in encephalopathic state per staff reports and direct observation. He has limited speech and is often perseverating on certain words. He was unable to really give any history and much of what we have, understand comes from charting and identifying the fact that he is presenting this way but just less than 2 weeks ago was having a very clear and understandable conversations with his outpatient providers. It is unclear whether this is how he presents and inpatient settings because there is no history of his inpatient narrative. He was unable to give any history and was very somnolent. He has had times where he has seemed delirious per staff reports but with his encounter with this investment underwriter he was just simply listless and only responsive to his name for the most part. Hospital Course Hospital Course Patient had episodes of aggression while here on the unit. Significant medication changes were made. The patient had Depakote added for mood stability up to a dose of 750 mg a day. Furthermore his routine monthly shot of Invega was increased from 156 mg monthly to 234 mg monthly on 09/17/2024. Oral Invega was also added to help with his psychosis and manic episodes. He had eventually been placed on a 21-day hold. The patient had requested that he be allowed to go home and manage his own affairs. The treatment team had considered the possibility that the patient may require guardianship and a level 2 was filed but the patient was eventually allowed to return home as he had specific help on a daily basis they are available to them. He advised to continue to take his medications as prescribed. He had endorsed a long history of schizophrenia and bipolar disorder but ultimately appeared to show evidence of having schizoaffective disorder bipolar type. During the hospitalization, the patient had routine laboratory studies which were within normal limits except for a few outliers.? Additionally, there was a general medical evaluation which was also within normal limits and revealed no new acute processes.? At the time of discharge, lethality was denied and psychosis was resolving.? Mood and anxiety were well managed.? The patient endorsed a plan to avoid all drugs of abuse and follow up with the aftercare recommendations of the treatment team.? The patient was evaluated and deemed to be absent credible lethality and had achieved the maximum benefit from an inpatient hospitalization, and so was discharged. ? Involuntary Hold Information Hold Status: Legal Status: 21 Day Hold Date/Time Hold Expires: 10/10/24 Mental Status Exam MSE Comments: * This is an obese older white male, with hospital scrubs on with eye contact. He appears older than his stated age likely secondary to be absent dentition. No abnormal involuntary motor movements except for mild psychomotor retardation. There was some evidence of a slow but steady gait. Sitting pleasantly in the day room. He was more cooperative with exam in no acute distress. Speech was more productive today with no vocal outbursts appreciated. Mood described as good. Affect was brighter today on discharge. Thought process was linear. Thought content: He reports no suicidal or homicidal ideation, there were no delusions reported and no hyperreligiosity with some mild paranoia appreciated. He did not report auditory or visual hallucinations and did not appear to be responding to internal stimuli. Attention and concentration were improved and memory was limited but none were formally tested. He was alert and oriented to person and place today. Patient insight was fair. His impulse control was fair and judgment was fair on discharge. No clear pill rolling tremor appreciated nor any parkinsonian symptoms were appreciated. Discharge Data Studies Completed and Pending: Completed Studies During Hospitalization Category Date Time Status CT head thromboly tic 90550 Stat Cat Scan 09/05/24 21:13 Completed XR KUB portable 7 4018 Routine Exams 09/18/24 18:37 Completed Radiology Impressions Head CT 09/05/24 21:13 IMPRESSION: No acute intracranial abnormality. ASSESSMENT: ASPECTS ([place] Stroke Program Early CT Score) is 10. ADDENDUM: 09/05/24 1431 Addendum: THIS REPORT CONTAINS FINDINGS THAT MAY BE CRITICAL TO PATIENT CARE. The findings were verbally communicated via telephone conference with RENATA LANGFORD at 9:52 PM CDT on 09/05/2024. The findings were acknowledged and understood. KUB X-Ray 09/18/24 18:37 IMPRESSION: Nonspecific nonobstructive bowel gas pattern. Suggestion of bilateral lower pelvic phleboliths. Laboratory Results WBC 7.32 10^3/uL (3.2 9-11.43) 09/08/24 13:04 RBC 5.37 10^6/uL (3.8 5-5.65) 09/08/24 13:04 Hgb 15.30 g/dL (11.27 -16.99) 09/08/24 13:04 Hct 48.3 % (37-53) 09/08/24 13:04 MCV 89.9 fl (82-101) 09/08/24 13:04 MCH 28.5 pg (27-33) 09/08/24 13:04 MCHC 31.7 g/dL (30-55) 09/08/24 13:04 RDW 13.8 % (12.1-15.1 ) 09/08/24 13:04 Plt Count 295 10^3/cmm (157 -399) 09/08/24 13:04 MPV 9.2 fL (7.4-10.4) 09/08/24 13:04 Neut % (Auto) 63.8 % 09/08/24 13:04 Lymph % (Auto) 22.7 % 09/08/24 13:04 Lawrence % (Auto) 8.3 % 09/08/24 13:04 Eos % (Auto) 4.1 % 09/08/24 13:04 Baso % (Auto) 0.8 % 09/08/24 13:04 Neut # (Auto) 4.67 10^3/uL (1.8 -7.7) 09/08/24 13:04 Lymph # (Auto) 1.7 10^3/uL (0.8- 4.8) 09/08/24 13:04 Lawrence # (Auto) 0.6 10^3/uL (0.2- 0.9) 09/08/24 13:04 Eos # (Auto) 0.3 10^3/uL (0.0- 0.8) 09/08/24 13:04 Baso # (Auto) 0.1 10^3/uL (0.0- 0.1) 09/08/24 13:04 Nucleated RBC % (a uto) 0 % 09/08/24 13:04 Nucleated RBCs # 0.0 /100WBC 09/08/24 13:04 ESR 15 mm/hr (0-10) H 09/08/24 13:04 PT 13.80 SECONDS (12 .1-14.9) 09/05/24 20: INR 0.99 (0.8-1.2) 09/05/24 20: APTT 28.5 SECONDS (23. 9-36.7) 09/05/24 20: Sodium 135 mmol/L (136-1 45) L 09/08/24 13:04 Potassium 4.1 mmol/L (3.5-5 .1) 09/08/24 13:04 Chloride 99 mmol/L (98-107 ) 09/08/24 13:04 Carbon Dioxide 25 mmol/L (22-29) 09/08/24 13:04 Anion Gap 15.1 (5-19) 09/08/24 13:04 BUN 13 mg/dL (8-23) 09/08/24 13:04 Creatinine 0.8 mg/dL (0.7-1. 2) 09/08/24 13:04 GFR Calculation 98.0 mL/min (90-1 30) 09/08/24 13:04 Glucose 154 mg/dL (65-115 ) H 09/08/24 13:04 POC Glucose 149 mg/dL (70-110 ) H 09/22/24 07:32 Calculated Osmolal ity 283 mOsm/kg (285- 295) L 09/08/24 13:04 Calcium 9.3 mg/dL (8.5-10 .5) 09/08/24 13:04 Total Bilirubin 0.6 mg/dL (0.15-1 .2) 09/08/24 13:04 AST 26 U/L (0-40) 09/08/24 13:04 ALT 41 U/L (0-41) 09/08/24 13:04 Alkaline Phosphata se 87 U/L (40-130) 09/08/24 13:04 Ammonia 31 umol/L (16-60) 09/06/24 20:21 C-Reactive Protein 4.9 mg/L (0.0-4.9 ) 09/08/24 13:04 Total Protein 7.2 g/dL (6.6-8.7 ) 09/08/24 13:04 Albumin 4.3 g/dL (3.5-5.2 ) 09/08/24 13:04 Globulin 2.9 g/dL (1.3-4.6 ) 09/08/24 13:04 Procalcitonin 0.02 ng/mL (0-0.5 ) 09/08/24 13:04 TSH 2.39 uIU/mL (0.27 -4.20) 09/06/24 20:21 Free T4 1.41 ng/dL (0.82- 1.77) 09/06/24 20:21 Urine Color Yellow (Yellow) 09/05/24 22:07 Urine Appearance Clear (CLEAR) 09/05/24 22:07 Urine pH 5.5 (5-7) 09/05/24 22:07 Ur Specific Gravit y 1.012 (1.005-1.0 30) 09/05/24 22:07 Urine Protein Negative (Negati ve) 09/05/24 22:07 Urine Glucose (UA) Negative (Normal ) 09/05/24 22:07 Urine Ketones Trace (Negative) 09/05/24 22:07 Urine Blood Negative (Negati ve) 09/05/24 22:07 Urine Nitrate Negative (Negati ve) 09/05/24 22:07 Urine Bilirubin Negative (Negati ve) 09/05/24 22:07 Urine Urobilinogen 1.0 mg/dL (Negati ve) 09/05/24 22:07 Ur Leukocyte Melissa ase Negative (Negati ve) 09/05/24 22:07 Urine RBC 0-2 /hpf (0-2) 09/05/24 22:07 Urine WBC 0-5 /hpf (0-5) 09/05/24 22:07 Ur Squamous Epith Cells 0-5 /hpf (0-5) 09/05/24 22:07 Amorphous Sediment Not Reportable 09/05/24 22:07 Urine Bacteria None seen /hpf (N ONE) 09/05/24 22:07 Hyaline Casts 1.65 /lpf 09/05/24 22:07 Urine Opiates Scre en Negative ng/mL (N egative) 09/05/24 22:07 Ur Barbiturates Sc reen Negative ng/mL (N egative) 09/05/24 22:07 Ur Phencyclidine S crn Negative ng/mL (N egative) 09/05/24 22:07 Ur Amphetamines Sc reen Negative ng/mL (N egative) 09/05/24 22:07 U Benzodiazepines Scrn Negative ng/mL (N egative) 09/05/24 22:07 Urine Cocaine Scre en Negative ng/mL (N egative) 09/05/24 22:07 U Marijuana (THC) Screen Negative ng/mL (N egative) 09/05/24 22:07 Vitals: Last Vital Signs Temp 98.0 F 09/21/24 20:04 Pulse 108 H 09/22/24 05:47 Resp 18 09/22/24 05:47 BP 169/88 09/22/24 05:47 Pulse Ox 96 09/22/24 05:47 O2 Del Method Room Air 09/19/24 06:00 Discharge Plan Discharge Patient Disposition: Home Condition: Stable Prescriptions: New divalproex 250 mg Tablet Extended Release 24 Hr 750 mg PO DAILY 30 Days Qty: 90 1RF metformin 500 mg Tablet 500 mg PO BIDWM 30 Days Qty: 60 1RF Invega Sustenna 234 mg/1.5 mL syringe 234 mg IM Q30D Qty: 1.5 1RF Rx Instructions: Next injection due on 10/15/2024 Continued metformin 500 mg tablet See Rx Instructions .ROUTE .COMPLEX Rx Instructions: 1000mg by mouth with am meal: 500mg by mouth with pm meal simvastatin 40 mg tablet 40 mg PO BEDTIME cetirizine 10 mg tablet 10 mg PO DAILY Rx Instructions: TAKE ONE TABLET BY MOUTH EVERY DAY losartan 25 mg tablet 25 mg PO DAILY 30 Days Qty: 30 1RF metoprolol tartrate 25 mg tablet 25 mg PO BID 30 Days Qty: 60 1RF Discontinued paliperidone palmitate 156 mg/mL syringe 156 mg IM .q 28 days Qty: 1 12RF Rx Instructions: Injection every 28 days benztropine 2 mg tablet 2 mg PO BID 90 Days Qty: 180 2RF Rx Instructions: Take one tablet twice per day metoprolol succinate 25 mg tablet extended release 24 hr 25 mg PO BID 90 Days Qty: 180 0RF losartan 25 mg tablet 25 mg PO DAILY Discharge Orders: Discharge Order (Routine); Ordered 09/22/24 Ordered By: Castro Lacey Referrals: Nidia Mccann DO [Primary Care Provider, COURT SECURITY OFFICER] Mara Crews PMHNP [Staff Physician, Psychiatry] - 09/23/24 8:45 am Discharge Diet: Usual diet Discharge Activity: Resume usual activity Patient Instructions: Altered Mental Status (ED), Opioid Safety Discharge Attestations NPU Time Spent in Discharge Care*: less than 30 min Specific Discharge Activities: Specific discharge activities: educating patient, discussing with case management manager/social workers/dc planners and documenting/other paperwork Coding Level of Care Code Acute Code for Chg Fwd Diagnoses Schizoaffective disorder, bipolar type F25.0 Altered mental status R41.82 Altered mental status type: unspecified History of Parkinson's disease Z86.69 Primary hypertension I10 Hypertension type: primary hypertension
--- NOTE | 2024-09-22 15:38 | DCPLANNER ---
IMM was given to pt and right explained and copy placed in pt file.
[2024-09-22 15:53] VITALS: BP 158/79; PULSE 116; TEMP 37.2; O2SAT 94
== END 2024-09-22 16:20 | disposition home or self-care (01) | DRG 885 ==
LOC: ER 09-06 02:51 → NP 09-06 04:30
PROVIDERS: Admitting Provider Psychiatry & Neurology Psychiatry; Emergency Provider General Practice; PCP Family Medicine; Visit Provider Psychiatry & Neurology Psychiatry
DX: F25.0 Schizoaffective disorder, bipolar type (principal); G93.40 Encephalopathy, unspecified; I10 Essential (primary) hypertension; E78.5 Hyperlipidemia, unspecified; Z87.891 Personal history of nicotine dependence; E66.9 Obesity, unspecified; Z68.28 Body mass index [BMI] 28.0-28.9, adult; E11.9 Type 2 diabetes mellitus without complications; Z79.84 Long term (current) use of oral hypoglycemic drugs; G20.A1 Parkinson's disease without dyskinesia, without mention of fluctuations
CPT/HCPCS: 36415; 36416; 51798; 70450; 74018; 80053; 80306; 81001; 82140; 82962; 84145; 84439; 84443; 85025; 85610; 85651; 85730; 86140; 93005; 96372; 97150; 97165; 99285; J1200; J1630; J2060; J3486; J7030; J9999; Q0163

== ENCOUNTER 2024-09-26 17:47 | Emergency (ER) | payer OTHER, MEDICAID, SELFPAY ==
[2024-08-12 08:41] VITALS: BP 143/101; BMI 36.0
[2024-09-26 17:49] VITALS: BMI 29.2
--- NOTE | 2024-09-26 17:54 | PC.NURSE ---
PATIENT CONTINUES TO THREATEN STAFF. PATIENT STATES IF YOU PUT ME IN THE STRESS UNIT, I'M GOING TO SHUT THIS PLACE DOWN. PATIENT MENTIONS CALLING THE STATE AND HAVING THEM ESCORTING YOU OUT. PATIENT CONTINUES TO YELL AT STAFF, MOSTLY NONSENSICAL IN NATURE. PATIENT VERY LOUD, CALMS DOWN WITH INSTRUCTION. PATIENT PROVIDED WITH BATH WIPES, CHANGED INTO GREEN SCRUBS.
--- NOTE | 2024-09-26 17:57 | PC.NURSE ---
PATIENT HAS $69 DOLLARS WITH HIM, PLACED IN SPECIMEN CUP, INSIDE INVENTORIED BAG.
[2024-09-26 18:01] VITALS: BP 131/88; PULSE 227; RESP 20; TEMP 36.9; O2SAT 92
--- NOTE | 2024-09-26 18:04 | ECG_ITS ---
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 Measurements Intervals [place] Rate: 109 P: 65 NM: 168 QRS: 13 QRSD: 89 T: 58 QT: 334 QTc: 450 Interpretive Statements SINUS TACHYCARDIA ABNORMAL RHYTHM ECG Compared to ECG 09/05/2024 21:42:39 Sinus rhythm no longer present Electronically Signed On 09-27-2024 11:56:18 CDT by Blake Murillo M.D. [email or web address]
[2024-09-26 18:11] VITALS: PULSE 109
--- NOTE | 2024-09-26 20:29 | W.ED.PSYCHS ---
HPI - Psych General: Chief Complaint: Psychiatric Symptoms Stated Complaint: MHE Time Seen by Provider: 09/26/24 18:28 Source: patient Mode of arrival: ambulatory Limitations: no limitations History of Present Illness: Patient reports he did not want to come here. He is not voluntarily here. He reports he is of sound mind and would like to be sent home. He does not want a be evaluated at this hospital. He denies having any medical emergency. He is alert, able to ambulate on his own. He is oriented to person place and time including year month and day. He does have expressions of paranoia and would likely benefit for mental health eval however patient is declining.. Related Data Home Medications ?Medication ?Instructions ?Recorded ?Confirmed metformin 500 mg tablet See Rx Instructions .Route .COMPLEX 10/23/23 09/23/24 simvastatin 40 mg tablet 40 mg PO BEDTIME 02/19/24 09/23/24 cetirizine 10 mg tablet 10 mg PO DAILY 05/05/24 09/23/24 Previous Rx's ?Medication ?Instructions ?Recorded losartan 25 mg tablet 25 mg PO DAILY 30 days #30 tabs 09/22/24 metformin 500 mg tablet 500 mg PO BIDWM 30 days #60 tabs 09/22/24 metoprolol tartrate 25 mg tablet 25 mg PO BID 30 days #60 tabs 09/22/24 paliperidone palmitate 234 mg/1.5 234 mg (1.5 mL) IM Q30D #1.5 mL 09/22/24 mL intramuscular syringe (Invega Sustenna) divalproex 250 mg tablet,extended 750 mg (3 x 250 mg) PO .7 pm 30 09/23/24 release 24 hr days #90 tabs paliperidone 3 mg tablet,extended 3 mg PO QAM #30 tabs 09/23/24 release 24 hr (Invega) Allergies Allergy/AdvReac Type Severity Reaction Status Date / Time lithium Allergy ADR-Nausea Verified 09/23/24 09:11 oxycodone (From OxyContin) Allergy nausea Verified 09/23/24 09:11 Penicillins Allergy ALGY-Difficulty Verified 09/23/24 09:11 Breathing Review of Systems General: Reports: 10 or more systems reviewed and unremarkable except in HPI and below PFSH ED PFSH: Medical History Schizoaffective disorder, bipolar type Seasonal allergies History of Parkinson's disease Hyperlipidemia Hypertension Psychiatric care Family History Father Cancer stomach Mother Cancer ovarian Social History Smoking and tobacco/nicotine status: former use of tobacco/nicotine Alcohol intake: current Alcohol intake frequency: holidays/special occasions only Substance/Drug Use: former Adopted: No Caregiver/support person: No Lives independently: Yes Household members: none Housing: Apartment Marital status: / Number of children: 1 Number of grandchildren: 2 Highest education level completed: 8th Grade Current occupational status: unemployed Pets and animals: No Leisure activites: exercise and clubs Sexually active: No Do you think of yourself as: Straight/Heterosexual Current gender identity: Male Janelle/Samaritan: Anglican Special janelle needs: No Agree to transfusion: Yes Physical Exam Narrative: EXAM NARRATIVE: ANO x 3, normal body habitus. Agitated mental status. Normocephalic atraumatic, heart rate is regular rate and rhythm mildly tachycardic and low over 100. Strength appears to be symmetric in all 4 extremities. Was not permitted to assess lung sounds however patient is talking in complete sentences and able to yell at staff. Abdomen is nondistended. No to examine abdomen so unsure about tenderness. Course Vital Signs: Vital signs: Vital Signs Temperature 98.4 F 09/26/24 18:01 Pulse Rate 109 H 09/26/24 18:11 Respiratory Rate 20 H 09/26/24 18:01 Blood Pressure 131/88 09/26/24 18:01 Pulse Oximetry 92 09/26/24 18:01 Oxygen Delivery Me thod Room Air 09/26/24 18:01 MDM - Psych Medical Decision Making Patient seen in the ER clearly sent by someone outside here as he reports he does not want to be here. He declines majority of exam. He appears paranoid but oriented. Does not meet criteria for a psychiatric hold at this time. Patient will be discharged at his request. Of note I inquired about patient's initial vitals. I was informed that is not accurate and was likely a typo. Patient never had a rhythm that showed a SVT or worse. Believed to be 127. Differential Diagnosis Likely acute psychosis, chronic schizophrenia and drug-induced psychotic disorder Medical Records I reviewed the patient's medical records. No radiology studies performed this visit Discharge Plan Discharge Patient Disposition: Home Clinical Impression: Schizoaffective disorder, bipolar type Condition: Stable Prescriptions: No Action metformin 500 mg tablet See Rx Instructions .ROUTE .COMPLEX Rx Instructions: 1000mg by mouth with am meal: 500mg by mouth with pm meal paliperidone [Invega] 3 mg tablet extended release 24hr 3 mg PO QAM Qty: 30 3RF Rx Instructions: Take one tablet every morning divalproex 250 mg tablet extended release 24 hr 750 mg PO .7 pm 30 Days Qty: 90 3RF Rx Instructions: Take three tablets at 7 pm simvastatin 40 mg tablet 40 mg PO BEDTIME cetirizine 10 mg tablet 10 mg PO DAILY Rx Instructions: TAKE ONE TABLET BY MOUTH EVERY DAY metformin 500 mg Tablet 500 mg PO BIDWM 30 Days Qty: 60 1RF losartan 25 mg tablet 25 mg PO DAILY 30 Days Qty: 30 1RF metoprolol tartrate 25 mg tablet 25 mg PO BID 30 Days Qty: 60 1RF Invega Sustenna 234 mg/1.5 mL syringe 234 mg IM Q30D Qty: 1.5 1RF Rx Instructions: Next injection due on 10/15/2024 Discharge Orders: Discharge ED (Routine); Ordered 09/26/24 Ordered By: Patrice Raya Referrals: Nidia Mccann DO [Primary Care Provider, SHEET COMBINING OPERATOR] Patient Instructions: Medical Clearance for Psychiatric Care (ED) Print Language: Lithuanian Coding Level of Care Code ED Propulsion Motor And Generator Repairer for Brien Loomis
== END 2024-09-26 21:12 | disposition home or self-care (01) ==
PROVIDERS: Emergency Provider Emergency Medicine; PCP Family Medicine
DX: F25.0 Schizoaffective disorder, bipolar type (principal); Z79.84 Long term (current) use of oral hypoglycemic drugs; Z87.891 Personal history of nicotine dependence; E78.5 Hyperlipidemia, unspecified; I10 Essential (primary) hypertension
CPT/HCPCS: 93005; 99283

== ENCOUNTER 2024-09-30 10:44 | Emergency (ER) | payer OTHER, MEDICAID, SELFPAY ==
[2024-08-12 08:41] VITALS: BP 143/101; BMI 36.0
[2024-09-30 10:45] VITALS: BP 178/83; PULSE 87; RESP 20; TEMP 36.8; O2SAT 96
--- NOTE | 2024-09-30 10:54 | W.ED.PSYCHS ---
HPI - Psych General: Chief Complaint: Psychiatric Symptoms Stated Complaint: 96, MHE Time Seen by Provider: 09/30/24 10:45 Source: patient and EMS Mode of arrival: EMS Limitations: no limitations History of Present Illness: 64-year-old male 64-year-old male with extensive psychiatric history including schizoaffective disorder bipolar disorder he recently been admitted here is sent here from [facility] under 96-hour hold for increased paranoia he is quite paranoid here denies SI or HI but does have flight of ideas. Associated symptoms: Deny suicidal ideation Related Data Home Medications ?Medication ?Instructions ?Recorded ?Confirmed simvastatin 40 mg tablet 40 mg PO BEDTIME 02/19/24 09/30/24 cetirizine 10 mg tablet 10 mg PO DAILY 05/05/24 09/30/24 benztropine 2 mg tablet 2 mg PO BID 09/30/24 09/30/24 Previous Rx's ?Medication ?Instructions ?Recorded losartan 25 mg tablet 25 mg PO DAILY 30 days #30 tabs 09/22/24 metformin 500 mg tablet 500 mg PO BIDWM 30 days #60 tabs 09/22/24 metoprolol tartrate 25 mg tablet 25 mg PO BID 30 days #60 tabs 09/22/24 paliperidone palmitate 234 mg/1.5 234 mg (1.5 mL) IM Q30D #1.5 mL 09/22/24 mL intramuscular syringe (Invega Sustenna) divalproex 250 mg tablet,extended 750 mg (3 x 250 mg) PO .7 pm 30 09/23/24 release 24 hr days #90 tabs paliperidone 3 mg tablet,extended 3 mg PO QAM #30 tabs 09/23/24 release 24 hr (Invega) Allergies Allergy/AdvReac Type Severity Reaction Status Date / Time lithium Allergy ADR-Nausea Verified 09/23/24 09:11 oxycodone (From OxyContin) Allergy nausea Verified 09/23/24 09:11 Penicillins Allergy ALGY-Difficulty Verified 09/23/24 09:11 Breathing Review of Systems Const: Denies: fever(s), chills, body aches or change in appetite ENMT: Denies: throat pain or dental pain Card: Denies: chest pain Resp: Denies: dyspnea GI: Denies: abdominal pain, nausea, vomiting or diarrhea Musc: Denies: neck pain or back pain Skin/Breast: Denies: rash Neuro: Denies: headache(s) Psych: Reports: paranoia; Denies: suicidal ideation PFSH ED PFSH: Medical History Schizoaffective disorder, bipolar type Seasonal allergies History of Parkinson's disease Hyperlipidemia Hypertension Psychiatric care Family History Father Cancer stomach Mother Cancer ovarian Social History Smoking and tobacco/nicotine status: former use of tobacco/nicotine Alcohol intake: current Alcohol intake frequency: holidays/special occasions only Substance/Drug Use: former Adopted: No Caregiver/support person: No Lives independently: Yes Household members: none Housing: Apartment Marital status: / Number of children: 1 Number of grandchildren: 2 Highest education level completed: 8th Grade Current occupational status: unemployed Pets and animals: No Leisure activites: exercise and clubs Sexually active: No Do you think of yourself as: Straight/Heterosexual Current gender identity: Male Janelle/Mormonism: Congregational Special janelle needs: No Agree to transfusion: Yes Physical Exam Const: COMMON NORMALS: no acute distress, patient oriented x3 and healthy appearing HENMT: COMMON NORMALS: normocephalic and atraumatic HEAD & SCALP: normocephalic and atraumatic Eye: COMMON NORMALS: conjunctivae normal CONJUNCTIVA: Yes conjunctivae normal Neck/C-Spine: COMMON NORMALS: full ROM and supple Chest: COMMONS NORMALS: normal inspection of the chest Resp: COMMON NORMALS: normal respiratory effort Cardio: COMMON NORMALS: regular rate RATE: regular rate Extremity: COMMON NORMALS: normal to inspection and full ROM Neuro: COMMON NORMALS: patient oriented x3, moves all extremities and no focal motor deficits Psych: COMMON NORMALS: mental status grossly normal and cooperative ATTITUDE: Yes paranoid THOUGHT PROCESS: disorganized THOUGHT CONTENT: No Suicidality present Skin: COMMON NORMALS: no rashes or lesions noted and no wounds GENERAL SKIN EXAM: no rashes or lesions noted Course Vital Signs: Vital signs: Vital Signs Temperature 98.2 F 09/30/24 10:45 Pulse Rate 87 09/30/24 10:45 Respiratory Rate 20 H 09/30/24 10:45 Blood Pressure 178/83 09/30/24 10:45 Pulse Oximetry 96 09/30/24 10:45 Oxygen Delivery Me thod Room Air 09/30/24 10:45 MDM - Psych Medical Decision Making Patient presents here with acute psychosis I spoke to our psychiatrist Dr. Fermin who knows patient well who recommended he be immediate better suited for geriatric psych did speak to geriatric psych facility [place] and will transfer there for higher level of care he is medically cleared Medical Records I reviewed the patient's medical records. Lab Data I reviewed the patient's lab results. 09/30/24 11:06 09/30/24 11:06 Radiology Impressions Chest X-Ray 09/30/24 15:29 IMPRESSION: No acute findings. Laboratory Results WBC 6.33 10^3/uL (3.29-11.43) 09/30/24 11:06 RBC 4.96 10^6/uL (3.85-5.65) 09/30/24 11:06 Hgb 13.90 g/dL (11.27-16.99) 09/30/24 11:06 Hct 42.9 % (37-53) 09/30/24 11:06 MCV 86.5 fl (82-101) 09/30/24 11:06 MCH 28.0 pg (27-33) 09/30/24 11:06 MCHC 32.4 g/dL (30-55) 09/30/24 11:06 RDW 13.5 % (12.1-15.1) 09/30/24 11:06 Plt Count 314 10^3/cmm (157-399) 09/30/24 11:06 MPV 9.0 fL (7.4-10.4) 09/30/24 11:06 Neut % (Auto) 55.3 % 09/30/24 11:06 Lymph % (Auto) 27.5 % 09/30/24 11:06 [place] % (Auto) 9.5 % 09/30/24 11:06 Eos % (Auto) 6.8 % 09/30/24 11:06 Baso % (Auto) 0.6 % 09/30/24 11:06 Neut # (Auto) 3.50 10^3/uL (1.8-7.7) 09/30/24 11:06 Lymph # (Auto) 1.7 10^3/uL (0.8-4.8) 09/30/24 11:06 [place] # (Auto) 0.6 10^3/uL (0.2-0.9) 09/30/24 11:06 Eos # (Auto) 0.4 10^3/uL (0.0-0.8) 09/30/24 11:06 Baso # (Auto) 0.0 10^3/uL (0.0-0.1) 09/30/24 11:06 Nucleated RBC % (auto) 0 % 09/30/24 11:06 Nucleated RBCs # 0.0 /100WBC 09/30/24 11:06 Sodium 129 mmol/L (136-145) L 09/30/24 11:06 Potassium 3.7 mmol/L (3.5-5.1) 09/30/24 11:06 Chloride 93 mmol/L (98-107) L 09/30/24 11:06 Carbon Dioxide 26 mmol/L (22-29) 09/30/24 11:06 Anion Gap 13.7 (5-19) 09/30/24 11:06 BUN 8 mg/dL (8-23) 09/30/24 11:06 Creatinine 0.7 mg/dL (0.7-1.2) 09/30/24 11:06 GFR Calculation 114.3 mL/min (90-130) 09/30/24 11:06 Glucose 183 mg/dL (65-115) H 09/30/24 11:06 Calculated Osmolality 271 mOsm/kg (285-295) L 09/30/24 11:06 Calcium 8.9 mg/dL (8.5-10.5) 09/30/24 11:06 Total Bilirubin 0.4 mg/dL (0.15-1.2) 09/30/24 11:06 AST 41 U/L (0-40) H 09/30/24 11:06 ALT 31 U/L (0-41) 09/30/24 11:06 Alkaline Phosphatase 110 U/L (40-130) 09/30/24 11:06 Total Protein 6.9 g/dL (6.6-8.7) 09/30/24 11:06 Albumin 4.0 g/dL (3.5-5.2) 09/30/24 11:06 Globulin 2.9 g/dL (1.3-4.6) 09/30/24 11:06 TSH 2.37 uIU/mL (0.27-4.20) 09/30/24 11:06 Amorphous Sediment Not Reportable 09/30/24 13:18 Salicylates < 0.3 mg/dL (3-10) L 09/30/24 11:06 Urine Opiates Screen Negative ng/mL (Negative) 09/30/24 13:18 Acetaminophen < 5.0 ug/mL (10-30) L 09/30/24 11:06 Ur Barbiturates Screen Negative ng/mL (Negative) 09/30/24 13:18 Ur Phencyclidine Scrn Negative ng/mL (Negative) 09/30/24 13:18 Ur Amphetamines Screen Negative ng/mL (Negative) 09/30/24 13:18 U Benzodiazepines Scrn Negative ng/mL (Negative) 09/30/24 13:18 Urine Cocaine Screen Negative ng/mL (Negative) 09/30/24 13:18 U Marijuana (THC) Screen Negative ng/mL (Negative) 09/30/24 13:18 Ethyl Alcohol < 10 mg/dL (0-10) 09/30/24 11:06 Influenza A (PCR) Negative (Negative) 09/30/24 11:24 Influenza Type B (PCR) Negative (Negative) 09/30/24 11:24 RSV (PCR) Negative (Negative) 09/30/24 11:24 SARS-CoV-2 (PCR) Negative (Negative) 09/30/24 11:24 All radiology interpretation(s) finalized by discharge EKG Data EKG 1: I personally reviewed and interpreted this EKG as follows: EKG interpretation date: 09/30/24 EKG interpretation time: 11:19 Interpretation: nsr hr [address] elevation qrs 88 qtc 421 Discharge Plan Discharge Patient Disposition: Xfer Psychiatric Hosp Clinical Impression: Acute psychosis, Schizoaffective disorder, bipolar type Condition: Stable Referrals: Nidia Mccann DO [Physician, JOINTER MACHINE OPERATOR] Print Language: Belgian Coding Level of Care Code ED Resident Care Coordinator for [facility]
[2024-09-30 11:12] LABS: Basophils % 0.6 %; Eosinophils # 0.4 10^3/uL (0.0-0.8); Eosinophils % 6.8 %; Hematocrit 42.9 % (37-53); Lymphocytes # 1.7 10^3/uL (0.8-4.8); Lymphocytes % 27.5 %; Mean Corpuscular HGB Conc 32.4 g/dL (30-55); Mean Corpuscular Volume 86.5 fl (82-101); Monocytes # 0.6 10^3/uL (0.2-0.9); Monocytes % 9.5 %; Neutrophils % 55.3 %; Nucleated Red Blood Cells % 0 %; Platelet Count 314 10^3/cmm (157-399); Red Blood Count 4.96 10^6/uL (3.85-5.65); Red Cell Distribution Width 13.5 % (12.1-15.1); White Blood Count 6.33 10^3/uL (3.29-11.43)
--- NOTE | 2024-09-30 11:16 | ECG_ITS ---
[facility] Test Date: 2024-09-30 Pat Name: Benedicto Amaral Department: Room: Gender: Male [employer] Plans Intelligence Officer: : 1960 Requested By: Ruddy Neves Order Number: [id number] Endy MD: Yusra White M.D. Measurements Intervals [place] Rate: 98 P: 66 WA: 197 QRS: 16 QRSD: 88 T: 57 QT: 365 QTc: 468 Interpretive Statements SINUS RHYTHM WITH OCCASIONAL ECTOPIC PREMATURE COMPLEXES Compared to ECG 09/26/2024 18:06:12 Sinus tachycardia no longer present Electronically Signed On 09-30-2024 17:42:10 CDT by Yusra White M.D. [email or web address] [id number]
[2024-09-30 11:28] LABS: Alanine Aminotransferase 31 U/L (0-41); Alkaline Phosphatase 110 U/L (40-130); Anion Gap 13.7 (5-19); Aspartate Amino Transferase 41 U/L (0-40); Blood Urea Nitrogen 8 mg/dL (8-23); Calcium 8.9 mg/dL (8.5-10.5); Carbon Dioxide 26 mmol/L (22-29); Chloride 93 mmol/L (98-107); Creatinine Clr Calc Pharmacy 131.6962; Globulin 2.9 g/dL (1.3-4.6); Glomerular Filtration Rate 114.3 mL/min (90-130); Glucose 183 mg/dL (65-115); Osmolality Calculated 271 mOsm/kg (285-295); Potassium 3.7 mmol/L (3.5-5.1); Sodium 129 mmol/L (136-145); Total Bilirubin 0.4 mg/dL (0.15-1.2); Total Protein 6.9 g/dL (6.6-8.7)
[2024-09-30 11:29] LABS: Acetaminophen < 5.0 ug/mL (10-30); Alcohol Level < 10 mg/dL (0-10); Salicylate < 0.3 mg/dL (3-10)
--- NOTE | 2024-09-30 12:21 | PC.NURSE ---
96 hr rights reviewed with pt @1120 with assistance of [facility] Launching Pad Mechanic Cordell Claire. All education reviewed with pt at this time. No verbalized questions from pt for HS. Pt copy was left @bedside with pt. Pt provided a sandwich and carton of milk for a snack. No further needs.
[2024-09-30] MEDS: haloperidol inj 5 mg/mL INJ 1 mL IM (12:40)
[2024-09-30] MEDS: LORazepam 1 MG/0.5 ML injection 2 MG IM (12:40)
[2024-09-30 13:22] LABS: Influenza A NEGATIVE (Negative); Influenza B NEGATIVE (Negative); Respiratory Syncytial Virus Ce NEGATIVE (Negative); SARS-CoV-2 PCR NEGATIVE (Negative)
[2024-09-30 13:44] LABS: Amphetamines Screen Urine Negative (Negative); Barbiturates Screen Urine Negative (Negative); Benzodiazepines Screen Urine Negative (Negative); Cocaine Screen Urine Negative (Negative); Opiate Screen Urine Negative (Negative); PCP Screen Urine Negative (Negative); THC Screen Urine Negative (Negative)
--- NOTE | 2024-09-30 15:29 | XRR_ITS ---
PROCEDURE INFORMATION: Exam: XR Chest Exam date and time: 09/30/2024 3:41 PM Age: 64 years old Clinical indication: Screening exam; Other screening; Additional info: Psych TECHNIQUE: Imaging protocol: Radiologic exam of the chest. Views: 1 view. COMPARISON: CR (ABDOMEN, ) 09/18/2024 7:16 PM FINDINGS: Lungs: Unremarkable. No consolidation. Pleural spaces: Unremarkable. No pleural effusion. No pneumothorax. Heart/Mediastinum: Unremarkable. No cardiomegaly. Bones/joints: Unremarkable. XR/XR chest 1V portable [id number] IMPRESSION: No acute findings.
[2024-09-30 17:34] LABS: Thyroid Stimulating Hormone 2.37 uIU/mL (0.27-4.20)
[2024-09-30 18:15] LABS: Bilirubin Urine Negative (Negative); Blood Urine Negative (Negative); Glucose Urine UA Trace (Normal); Ketones Urine Negative (Negative); Leukocyte Esterase Urine Trace (Negative); Nitrate Urine Negative (Negative); Protein Urine Negative (Negative); Specific Gravity, Urine 1.011 (1.005-1.030); Urine Appearance Clear (CLEAR); Urine Color Yellow (Yellow); Urobilinogen Urine 0.2 mg/dL (Negative)
[2024-09-30 18:17] LABS: Add Urine Microscopic? YES; Bacteria Urine None Seen /hpf; Hyaline Casts Urine 2.46 /lpf; RBC Urine 0-2 /hpf (0-2); Squamous Epithelial Cell Urine 0-5 /hpf (0-5); WBC Urine 0-5 /hpf (0-5)
[2024-09-30 18:22] LABS: Add Urine Culture? No
[2024-09-30 20:00] VITALS: BP 148/89; PULSE 98; RESP 16; O2SAT 96
[2024-09-30 22:50] VITALS: BP 149/78; PULSE 98; RESP 18; O2SAT 96
== END 2024-09-30 22:53 ==
PROVIDERS: Emergency Provider Emergency Medicine
DX: F23 Brief psychotic disorder (principal); F25.0 Schizoaffective disorder, bipolar type; Z11.52 Encounter for screening for COVID-19; Z87.891 Personal history of nicotine dependence; E78.5 Hyperlipidemia, unspecified; I10 Essential (primary) hypertension
CPT/HCPCS: 36415; 71045; 80053; 80306; 80307; 81001; 84443; 85025; 87637; 93005; 96372; 99285; J1630; J2060

== ENCOUNTER 2024-10-27 21:37 | Emergency (ER) | payer OTHER, MEDICAID, SELFPAY ==
[2024-08-12 08:41] VITALS: BP 143/101; BMI 36.0
--- NOTE | 2024-10-27 21:38 | XRR_ITS ---
PROCEDURE INFORMATION: Exam: XR Left Hip Exam date and time: 10/27/2024 10:09 PM Age: 64 years old Clinical indication: Injury or trauma; Fall; Blunt trauma (contusions or hematomas); Left; Hip TECHNIQUE: Imaging protocol: Radiologic exam of the left hip. Views: 2 or 3 views hip with pelvis when performed. COMPARISON: CR XR hip LT 2-3V wo/w pel* [id number] 10/23/2024 10:33 AM FINDINGS: Bones/joints: Moderate osteoarthritis of the hips bilaterally. Lumbar spine degenerative disc space disease. Soft tissues: Unremarkable. Vasculature: Calcified phleboliths over the pelvic inlet. XR/XR hip LT 2-3V wo/w pel* [id number] IMPRESSION: 1. Negative for fracture or dislocation, consider correlation with a CT scan if concern for fracture remains. 2. Moderate osteoarthritis of the hips bilaterally. 3. Calcified phleboliths over the pelvic inlet. 4. Lumbar spine degenerative disc space disease.
[2024-10-27 22:36] VITALS: BP 137/89; PULSE 90; RESP 18; TEMP 36.8; O2SAT 96; BMI 29.2
[2024-10-27 23:49] VITALS: BP 128/70; PULSE 85; TEMP 37.1; O2SAT 93
--- NOTE | 2024-10-28 02:17 | W.ED.FALL ---
HPI - Fall General: Chief Complaint: Fall Stated Complaint: LEFT HIP PAIN POST FALL Time Seen by Provider: 10/28/24 01:45 History of Present Illness: 64-year-old man with a history of schizophrenia who presents emergency room after he had a fall earlier. He says he tripped and fell backwards and has pain in his hip. Left hip pain. No shortening or rotation. No obvious deformities. He does have pain with movement. When I speak with him he says I demand a complete physical examination . I told him I am doing a focused examination for his injury today in the emergency room. He said then asked for a colonoscopy in the emergency room which I declined Related Data Home Medications ?Medication ?Instructions ?Recorded ?Confirmed simvastatin 40 mg tablet 40 mg PO BEDTIME 02/19/24 09/30/24 cetirizine 10 mg tablet 10 mg PO DAILY 05/05/24 09/30/24 divalproex 500 mg tablet,extended 1,000 mg PO .qevening 10/17/24 10/17/24 release 24 hr haloperidol 10 mg tablet 10 mg PO BID 10/17/24 10/17/24 lorazepam 0.5 mg tablet 0.5 mg PO TID PRN 10/17/24 10/17/24 sodium chloride 1 gram tablet 1,000 mg PO BID 10/17/24 10/17/24 Previous Rx's ?Medication ?Instructions ?Recorded metformin 500 mg tablet 500 mg PO BIDWM 30 days #60 tabs 09/22/24 metoprolol tartrate 25 mg tablet 25 mg PO BID 30 days #60 tabs 09/22/24 Allergies Allergy/AdvReac Type Severity Reaction Status Date / Time lithium Allergy ADR-Nausea Verified 09/23/24 09:11 oxycodone (From OxyContin) Allergy nausea Verified 09/23/24 09:11 Penicillins Allergy ALGY-Difficulty Verified 09/23/24 09:11 Breathing Review of Systems Narrative: Constitutional symptoms: Negative except as documented in HPI. Skin symptoms: Negative except as documented in HPI. Eye symptoms: Negative except as documented in HPI. ENMT symptoms: Negative except as documented in HPI. Respiratory symptoms: Negative except as documented in HPI. Cardiovascular symptoms: Negative except as documented in HPI. Gastrointestinal symptoms: Negative except as documented in HPI. Genitourinary symptoms: Negative except as documented in HPI. Musculoskeletal symptoms: Negative except as documented in HPI. Neurologic symptoms: Negative except as documented in HPI. Psychiatric symptoms: Negative except as documented in HPI. Endocrine symptoms: Negative except as documented in HPI. PFSH ED PFSH: Medical History Schizoaffective disorder, bipolar type Seasonal allergies History of Parkinson's disease Hyperlipidemia Hypertension Psychiatric care Family History Father Cancer stomach Mother Cancer ovarian Social History Smoking and tobacco/nicotine status: former use of tobacco/nicotine Alcohol intake: current Alcohol intake frequency: holidays/special occasions only Substance/Drug Use: former Adopted: No Caregiver/support person: No Lives independently: Yes Household members: none Housing: Apartment Marital status: / Number of children: 1 Number of grandchildren: 2 Highest education level completed: 8th Grade Current occupational status: unemployed Pets and animals: No Leisure activites: exercise and clubs Sexually active: No Do you think of yourself as: Straight/Heterosexual Current gender identity: Male Janelle/Latter Day: Catholic Special janelle needs: No Agree to transfusion: Yes Physical Exam Narrative: EXAM NARRATIVE: General: Alert, no acute distress. Skin: warm and dry Head: Normocephalic Neck: Trachea midline Eye: Extraocular movements are intact. Ears, nose, mouth and throat: Oral mucosa moist Respiratory: Respirations are non-labored Musculoskeletal: Normal ROM, no deformities. No shortening or rotation. Some pain with movement. Gastrointestinal: Abdomen does not appear distended Neurological: Alert and oriented, No focal neurological deficit observed. Psychiatric: Cooperative, appropriate mood & affect. Course Vital Signs: Vital signs: Vital Signs Temperature 98.8 F 10/27/24 23:49 Pulse Rate 85 10/27/24 23:49 Respiratory Rate 18 10/27/24 22:36 Blood Pressure 128/70 10/27/24 23:49 Pulse Oximetry 93 10/27/24 23:49 Oxygen Delivery Me thod Room Air 10/27/24 23:49 MDM - Fall Medical Decision Making X-ray of left hip and pelvis: No fracture or dislocation. Some arthritis. This was reviewed and interpreted by myself the emergency room physician. I also reviewed the radiology report. Assessment and plan: Hip injury - Discharged home - Discussed plan with patient. Answered any questions. - Evaluation and treatment of this problem were appropriate in the emergency setting. Lab Data Radiology Impressions Hip/Pelvis X-Ray 10/27/24 21:38 IMPRESSION: 1. Negative for fracture or dislocation, consider correlation with a CT scan if concern for fracture remains. 2. Moderate osteoarthritis of the hips bilaterally. 3. Calcified phleboliths over the pelvic inlet. 4. Lumbar spine degenerative disc space disease. All radiology interpretation(s) finalized by discharge Discharge Plan Discharge Patient Disposition: Home Clinical Impression: Hip injury Condition: Stable Prescriptions: No Action simvastatin 40 mg tablet 40 mg PO BEDTIME lorazepam 0.5 mg tablet 0.5 mg PO TID PRN divalproex 500 mg tablet extended release 24 hr 1,000 mg PO .qevening haloperidol 10 mg tablet 10 mg PO BID sodium chloride 1 gram tablet 1,000 mg PO BID cetirizine 10 mg tablet 10 mg PO DAILY metformin 500 mg Tablet 500 mg PO BIDWM 30 Days Qty: 60 1RF metoprolol tartrate 25 mg tablet 25 mg PO BID 30 Days Qty: 60 1RF Discharge Orders: Discharge ED (Routine); Ordered 10/28/24 Ordered By: Rosalba Carroll Referrals: Shemar Arcos MD [Primary Care Provider, Family Practice] Discharge Diet: Usual diet Discharge Activity: Increase activity as tolerated Patient Instructions: Opioid Safety, Pain Management Activity Restrictions/Additional Instructions: Thank you for choosing [facility] for your healthcare needs today. You have been screened and evaluated and felt safe for discharge. Health conditions do change or evolve sometimes and as such it is important that you follow up with your Primary Doctor to be re checked, 3-5 days is a general good time frame for follow up. You are always welcome to return to the ED for re assessment if your symptoms are worsening or you have new concerns Print Language: Swedish Coding Level of Care Code ED Acting Section Chief for Brien Loomis
[2024-10-28 02:26] VITALS: BP 147/81; PULSE 93; O2SAT 95
== END 2024-10-28 02:27 | disposition home or self-care (01) ==
PROVIDERS: Emergency Provider Emergency Medicine; PCP Family Medicine
DX: S79.912A Unspecified injury of left hip, initial encounter (principal); Z79.84 Long term (current) use of oral hypoglycemic drugs; Z87.891 Personal history of nicotine dependence; E78.5 Hyperlipidemia, unspecified; I10 Essential (primary) hypertension; W01.0XXA Fall on same level from slipping, tripping and stumbling without subsequent striking against object, initial encounter
CPT/HCPCS: 73502; 99283

== ENCOUNTER 2024-10-29 15:26 | Emergency (ER) | payer OTHER, MEDICAID, SELFPAY ==
[2024-08-12 08:41] VITALS: BP 143/101; BMI 36.0
[2024-10-29 15:27] VITALS: BMI 23.7
--- NOTE | 2024-10-29 15:31 | ECG_ITS ---
[facility] Test Date: 2024-10-29 Pat Name: Benedicto Amaral Department: Room: Gender: Male Potline Monitor: : 1960 Requested By: Ruddy Neves Order Number: [id number] Endy MD: Yusra White M.D. Measurements Intervals [place] Rate: 90 P: 54 WA: 186 QRS: 5 QRSD: 92 T: 43 QT: 369 QTc: 453 Interpretive Statements SINUS RHYTHM WITH OCCASIONAL SUPRAVENTRICULAR PREMATURE COMPLEXES Compared to ECG 09/30/2024 11:19:34 No significant changes Electronically Signed On 10-30-2024 06:01:03 CDT by Yusra White M.D. [email or web address]
--- NOTE | 2024-10-29 15:32 | W.ED.PSYCHS ---
HPI - Psych General: Chief Complaint: Psychiatric Symptoms Stated Complaint: PSYCH Time Seen by Provider: 10/29/24 15:29 Source: patient and EMS Mode of arrival: EMS Limitations: no limitations History of Present Illness: 64-year-old male is here from [facility], [place] with suicidal ideations there is stated that he want to get a gun and kill some residents in his apartment and then go to the [place] and shoot himself. Patient is quite agitated security had to bring him from [facility] here with EMS. He will not speak to me at this time he was placed under 96-hour hold. Associated symptoms: Reports depression and suicidal ideation Related Data Home Medications ?Medication ?Instructions ?Recorded ?Confirmed simvastatin 40 mg tablet 40 mg PO BEDTIME 02/19/24 10/29/24 cetirizine 10 mg tablet 10 mg PO DAILY 05/05/24 10/29/24 sodium chloride 1 gram tablet 1,000 mg PO BID 10/17/24 10/29/24 losartan 25 mg tablet 25 mg PO DAILY 10/29/24 10/29/24 paliperidone palmitate 234 mg/1.5 234 mg IM Q30D 10/29/24 10/29/24 mL intramuscular syringe (Invega Sustenna) Previous Rx's ?Medication ?Instructions ?Recorded metformin 500 mg tablet 500 mg PO BIDWM 30 days #60 tabs 09/22/24 metoprolol tartrate 25 mg tablet 25 mg PO BID 30 days #60 tabs 09/22/24 lorazepam 0.5 mg tablet 0.5 mg PO BID #30 tabs 10/28/24 divalproex 250 mg tablet,extended 750 mg (3 x 250 mg) PO .7 pm 30 10/29/24 release 24 hr days #90 tabs Allergies Allergy/AdvReac Type Severity Reaction Status Date / Time lithium Allergy ADR-Nausea Verified 10/29/24 14:06 oxycodone (From OxyContin) Allergy nausea Verified 10/29/24 14:06 Penicillins Allergy ALGY-Difficulty Verified 10/29/24 14:06 Breathing Review of Systems Const: Denies: fever(s), chills, body aches or change in appetite ENMT: Denies: throat pain or dental pain Card: Denies: chest pain Resp: Denies: dyspnea GI: Denies: abdominal pain, nausea, vomiting or diarrhea Musc: Denies: neck pain or back pain Skin/Breast: Denies: rash Neuro: Denies: headache(s) Psych: Reports: depression and suicidal ideation PFSH ED PFSH: Medical History Schizoaffective disorder, bipolar type Seasonal allergies History of Parkinson's disease Hyperlipidemia Hypertension Psychiatric care Family History Father Cancer stomach Mother Cancer ovarian Social History Smoking and tobacco/nicotine status: former use of tobacco/nicotine Alcohol intake: current Alcohol intake frequency: holidays/special occasions only Substance/Drug Use: former Adopted: No Caregiver/support person: No Lives independently: Yes Household members: none Housing: Apartment Marital status: / Number of children: 1 Number of grandchildren: 2 Highest education level completed: 8th Grade Current occupational status: unemployed Pets and animals: No Leisure activites: exercise and clubs Sexually active: No Do you think of yourself as: Straight/Heterosexual Current gender identity: Male Janelle/Buddhism: Scientologist Special janelle needs: No Agree to transfusion: Yes Physical Exam Const: COMMON NORMALS: no acute distress, patient oriented x3 and healthy appearing HENMT: COMMON NORMALS: normocephalic and atraumatic HEAD & SCALP: normocephalic and atraumatic Eye: COMMON NORMALS: conjunctivae normal CONJUNCTIVA: Yes conjunctivae normal Neck/C-Spine: COMMON NORMALS: full ROM and supple Chest: COMMONS NORMALS: normal inspection of the chest Resp: COMMON NORMALS: normal respiratory effort Cardio: COMMON NORMALS: regular rate RATE: regular rate Extremity: COMMON NORMALS: normal to inspection and full ROM Neuro: COMMON NORMALS: patient oriented x3, moves all extremities and no focal motor deficits Psych: COMMON NORMALS: mental status grossly normal ATTITUDE: Yes agitated THOUGHT CONTENT: Yes Suicidality present Skin: COMMON NORMALS: no rashes or lesions noted and no wounds GENERAL SKIN EXAM: no rashes or lesions noted Course Vital Signs: Vital signs: Vital Signs Temperature 98.4 F 10/30/24 09:09 Pulse Rate 82 10/30/24 09:09 Respiratory Rate 18 10/30/24 09:09 Blood Pressure 151/92 10/30/24 09:09 Pulse Oximetry 98 10/30/24 09:09 Oxygen Delivery Me thod Room Air 10/30/24 09:[address] [facility] - Psych Medical Decision Making pt presents here with suicidal ideation. He is medically cleared will transfer to [facility] Medical Records I reviewed the patient's medical records. Lab Data I reviewed the patient's lab results. 10/29/24 16:30 10/29/24 16:30 Radiology Impressions Chest X-Ray 10/29/24 22:17 IMPRESSION: No acute findings. Laboratory Results WBC 6.44 10^3/uL (3.29-11.43) 10/29/24 16:30 RBC 3.83 10^6/uL (3.85-5.65) L 10/29/24 16:30 Hgb 11.00 g/dL (11.27-16.99) L 10/29/24 16:30 Hct 34.4 % (37-53) L 10/29/24 16:30 MCV 89.8 fl (82-101) 10/29/24 16:30 MCH 28.7 pg (27-33) 10/29/24 16:30 MCHC 32.0 g/dL (30-55) 10/29/24 16:30 RDW 14.2 % (12.1-15.1) 10/29/24 16:30 Plt Count 386 10^3/cmm (157-399) 10/29/24 16:30 MPV 8.7 fL (7.4-10.4) 10/29/24 16:30 Neut % (Auto) 59.0 % 10/29/24 16:30 Lymph % (Auto) 21.7 % 10/29/24 16:30 [place] % (Auto) 9.0 % 10/29/24 16:30 Eos % (Auto) 8.7 % 10/29/24 16:30 Baso % (Auto) 1.1 % 10/29/24 16:30 Neut # (Auto) 3.80 10^3/uL (1.8-7.7) 10/29/24 16:30 Lymph # (Auto) 1.4 10^3/uL (0.8-4.8) 10/29/24 16:30 [place] # (Auto) 0.6 10^3/uL (0.2-0.9) 10/29/24 16:30 Eos # (Auto) 0.6 10^3/uL (0.0-0.8) 10/29/24 16:30 Baso # (Auto) 0.1 10^3/uL (0.0-0.1) 10/29/24 16:30 Nucleated RBC % (auto) 0 % 10/29/24 16:30 Nucleated RBCs # 0.0 /100WBC 10/29/24 16:30 Sodium 133 mmol/L (136-145) L 10/29/24 16:30 Potassium 4.2 mmol/L (3.5-5.1) 10/29/24 16:30 Chloride 98 mmol/L (98-107) 10/29/24 16:30 Carbon Dioxide 24 mmol/L (22-29) 10/29/24 16:30 Anion Gap 15.2 (5-19) 10/29/24 16:30 BUN 11 mg/dL (8-23) 10/29/24 16:30 Creatinine 0.7 mg/dL (0.7-1.2) 10/29/24 16:30 GFR Calculation 114.3 mL/min (90-130) 10/29/24 16:30 Glucose 140 mg/dL (65-115) H 10/29/24 16:30 Calculated Osmolality 278 mOsm/kg (285-295) L 10/29/24 16:30 Calcium 8.7 mg/dL (8.5-10.5) 10/29/24 16:30 Total Bilirubin 0.6 mg/dL (0.15-1.2) 10/29/24 16:30 AST 18 U/L (0-40) 10/29/24 16:30 ALT 16 U/L (0-41) 10/29/24 16:30 Alkaline Phosphatase 76 U/L (40-130) 10/29/24 16:30 Total Protein 6.2 g/dL (6.6-8.7) L 10/29/24 16:30 Albumin 3.8 g/dL (3.5-5.2) 10/29/24 16:30 Globulin 2.4 g/dL (1.3-4.6) 10/29/24 16:30 TSH 3.26 uIU/mL (0.27-4.20) 10/29/24 16:30 Urine Color Yellow (Yellow) 10/29/24 23:23 Urine Appearance Clear (CLEAR) 10/29/24 23: Urine pH 5.5 (5-7) 10/29/24 23:23 Ur Specific [place] 1.018 (1.005-1.030) 10/29/24 23:23 Urine Protein Negative (Negative) 10/29/24 23:23 Urine Glucose (UA) Negative (Normal) 10/29/24 23: Urine Ketones Negative (Negative) 10/29/24 23: Urine Blood Negative (Negative) 10/29/24 23: Urine Nitrate Negative (Negative) 10/29/24 23: Urine Bilirubin Negative (Negative) 10/29/24 23: Urine Urobilinogen 1.0 mg/dL (Negative) 10/29/24 23:23 Ur Leukocyte Esterase Negative (Negative) 10/29/24 23:23 Urine RBC 0-2 /hpf (0-2) 10/29/24 23:23 Urine WBC 0-5 /hpf (0-5) 10/29/24 23:23 Ur Squamous Epith Cells 0-5 /hpf (0-5) 10/29/24 23: Amorphous Sediment Not Reportable 10/29/24 23:23 Urine Bacteria None seen /hpf (NONE) 10/29/24 23:23 Hyaline Casts 0-4 /lpf H 10/29/24 23:23 Salicylates < 0.3 mg/dL (3-10) L 10/29/24 16:30 Urine Opiates Screen Negative ng/mL (Negative) 10/29/24 23: Acetaminophen < 5.0 ug/mL (10-30) L 10/29/24 16:30 Ur Barbiturates Screen Negative ng/mL (Negative) 10/29/24 23:23 Ur Phencyclidine Scrn Negative ng/mL (Negative) 10/29/24 23:23 Ur Amphetamines Screen Negative ng/mL (Negative) 10/29/24 23:23 U Benzodiazepines Scrn Positive ng/mL (Negative) H 10/29/24 23:23 Urine Cocaine Screen Negative ng/mL (Negative) 10/29/24 23:23 U Marijuana (THC) Screen Negative ng/mL (Negative) 06/18/25 23:23 Ethyl Alcohol < 10 mg/dL (0-10) 10/29/24 16:30 Influenza A (PCR) Negative (Negative) 10/29/24 23:33 Influenza Type B (PCR) Negative (Negative) 10/29/24 23:33 RSV (PCR) Negative (Negative) 10/29/24 23:33 SARS-CoV-2 (PCR) Negative (Negative) 10/29/24 23:33 No radiology studies performed this visit EKG Data EKG 1: I personally reviewed and interpreted this EKG as follows: EKG interpretation date: 10/29/24 EKG interpretation time: 16:09 Interpretation: nsr hr [address] or t wave abnormalities qrs 92 qtc 417 Discharge Plan Discharge Patient Disposition: Xfer Psychiatric Hosp Clinical Impression: Suicidal ideation Condition: Stable Referrals: Shemar Arcos MD [Primary Care Provider, Family Practice] Print Language: South Sudanese Coding Level of Care Code ED Post Tronic Machine Operator for Chg E[facility]ie
[2024-10-29] MEDS: haloperidol inj 5 mg/mL INJ 1 mL IM (15:48)
[2024-10-29] MEDS: LORazepam 1 MG/0.5 ML injection 2 MG IM (15:48)
[2024-10-29] MEDS: diphenhydrAMINE 50 mg/mL SDV 1mL IM (15:48)
[2024-10-29 16:01] VITALS: BP 151/83; PULSE 84; RESP 16; TEMP 36.9; O2SAT 94
--- NOTE | 2024-10-29 16:23 | PC.PHAR ---
Pt is very combative and unable to verify home medications. Med rec completed with last fill date, day supply and Pharmacy filled.
[2024-10-29 16:43] LABS: Basophils # 0.1 10^3/uL (0.0-0.1); Basophils % 1.1 %; Eosinophils # 0.6 10^3/uL (0.0-0.8); Eosinophils % 8.7 %; Hematocrit 34.4 % (37-53); Lymphocytes # 1.4 10^3/uL (0.8-4.8); Lymphocytes % 21.7 %; Mean Corpuscular Hemoglobin 28.7 pg (27-33); Mean Corpuscular Volume 89.8 fl (82-101); Mean Platelet Volume 8.7 fL (7.4-10.4); Monocytes # 0.6 10^3/uL (0.2-0.9); Nucleated Red Blood Cells % 0 %; Platelet Count 386 10^3/cmm (157-399); Red Blood Count 3.83 10^6/uL (3.85-5.65); Red Cell Distribution Width 14.2 % (12.1-15.1); White Blood Count 6.44 10^3/uL (3.29-11.43)
[2024-10-29 17:10] LABS: Acetaminophen < 5.0 ug/mL (10-30); Alanine Aminotransferase 16 U/L (0-41); Albumin Level 3.8 g/dL (3.5-5.2); Alcohol Level < 10 mg/dL (0-10); Alkaline Phosphatase 76 U/L (40-130); Anion Gap 15.2 (5-19); Aspartate Amino Transferase 18 U/L (0-40); Blood Urea Nitrogen 11 mg/dL (8-23); Calcium 8.7 mg/dL (8.5-10.5); Carbon Dioxide 24 mmol/L (22-29); Chloride 98 mmol/L (98-107); Creatinine Clr Calc Pharmacy 117.6568; Globulin 2.4 g/dL (1.3-4.6); Glomerular Filtration Rate 114.3 mL/min (90-130); Glucose 140 mg/dL (65-115); Osmolality Calculated 278 mOsm/kg (285-295); Potassium 4.2 mmol/L (3.5-5.1); Salicylate < 0.3 mg/dL (3-10); Sodium 133 mmol/L (136-145); Thyroid Stimulating Hormone 3.26 uIU/mL (0.27-4.20); Total Bilirubin 0.6 mg/dL (0.15-1.2); Total Protein 6.2 g/dL (6.6-8.7)
--- NOTE | 2024-10-29 17:15 | PC.NURSE ---
Attempted to read involuntary 96 hold rights to patient. Patient appears to be sleeping at this time. Normal rise and fall of chest with normal respirations. Patient did not understand reading of rights at this time. Cordell from security present during attempt. Copy of rights was placed with patient belongings.
[2024-10-29 18:33] VITALS: BP 115/78; PULSE 76; RESP 18; O2SAT 96
--- NOTE | 2024-10-29 22:17 | XRR_ITS ---
PROCEDURE INFORMATION: Exam: XR Chest Exam date and time: 10/29/2024 10:30 PM Age: 64 years old Clinical indication: Other: Bh screening; Additional info: Psychiatric work up TECHNIQUE: Imaging protocol: Radiologic exam of the chest. Views: 1 view. COMPARISON: CR XR chest 1V portable [id number] 09/30/2024 3:41 PM FINDINGS: Lungs: Unremarkable. No consolidation. Pleural spaces: Unremarkable. No pleural effusion. No pneumothorax. Heart/Mediastinum: Unremarkable. No cardiomegaly. Bones/joints: Unremarkable. XR/XR chest 1V portable [id number] IMPRESSION: No acute findings.
[2024-10-29 23:41] LABS: Amphetamines Screen Urine Negative (Negative); Barbiturates Screen Urine Negative (Negative); Benzodiazepines Screen Urine Positive (Negative); Cocaine Screen Urine Negative (Negative); Opiate Screen Urine Negative (Negative); PCP Screen Urine Negative (Negative); THC Screen Urine Negative (Negative)
[2024-10-30 00:12] LABS: Influenza A NEGATIVE (Negative); Influenza B NEGATIVE (Negative); Respiratory Syncytial Virus Ce NEGATIVE (Negative); SARS-CoV-2 PCR NEGATIVE (Negative)
[2024-10-30 00:22] LABS: Bilirubin Urine Negative (Negative); Blood Urine Negative (Negative); Glucose Urine UA Negative (Normal); Ketones Urine Negative (Negative); Leukocyte Esterase Urine Negative (Negative); Nitrate Urine Negative (Negative); Protein Urine Negative (Negative); Specific Gravity, Urine 1.018 (1.005-1.030); Urine Appearance Clear (CLEAR); Urine Color Yellow (Yellow); pH Urine 5.5 (5-7)
[2024-10-30 00:27] LABS: Add Urine Microscopic? YES; Bacteria Urine None Seen /hpf; Hyaline Casts Urine 0-4 /lpf; RBC Urine 0-2 /hpf (0-2); Squamous Epithelial Cell Urine 0-5 /hpf (0-5); WBC Urine 0-5 /hpf (0-5)
--- NOTE | 2024-10-30 01:54 | PC.NURSE ---
report called to GIOVANI Morel at [facility] in [facility]. receiving rn verbalized understanding and had no further questions/concerns at time of telephone report.
[2024-10-30 02:11] VITALS: BP 152/89; PULSE 90; TEMP 36.7; O2SAT 97
[2024-10-30] MEDS: ziprasidone hcl 20 mg Capsule PO (02:49)
--- NOTE | 2024-10-30 05:41 | PC.NURSE ---
pt provided shower and fresh green scrubs, no-skid socks. new patient identifier bracelet, allergy bracelet, and elopement band placed on pt.
[2024-10-30 06:29] VITALS: BP 156/102; PULSE 82; O2SAT 97
[2024-10-30] MEDS: cetirizine 10 mg Tablet PO (09:08)
[2024-10-30] MEDS: metformin 500 mg Tablet PO (09:08)
[2024-10-30] MEDS: LORazepam 2 mg Tablet PO (09:08)
[2024-10-30] MEDS: metoprolol tartrate 25 mg Tablet PO (09:08)
[2024-10-30 09:09] VITALS: BP 151/92; PULSE 82; RESP 18; TEMP 36.9; O2SAT 98
--- NOTE | 2024-10-30 09:17 | PC.NURSE ---
pt refused depakote & losartan; states will take later but not right now.
[2024-10-30] MEDS: divalproex DR 250 mg Tablet 750 MG PO (09:25)
[2024-10-30] MEDS: losartan 50 mg Tablet 25 MG PO (09:25)
--- NOTE | 2024-10-30 09:45 | PC.NURSE ---
report given to [facility] @[id number], pt belongings sent with pt upon d/c
== END 2024-10-30 09:47 ==
PROVIDERS: Emergency Medicine; Emergency Provider Emergency Medicine; PCP Family Medicine
DX: R45.851 Suicidal ideations (principal); Z11.52 Encounter for screening for COVID-19; Z87.891 Personal history of nicotine dependence; E78.5 Hyperlipidemia, unspecified; I10 Essential (primary) hypertension
CPT/HCPCS: 36415; 71045; 80053; 80306; 80307; 81001; 84443; 85025; 87637; 93005; 96372; 99285; J1200; J1630; J2060; J9999

== ENCOUNTER 2024-11-05 21:56 | Inpatient (IN) | payer OTHER, MEDICAID, SELFPAY ==
--- OUTSIDE RECORDS SUMMARY | 2022-04-14 10:31 | XMS_ITS | Continuity of Care Document ---
Author Organization [facility] Address [address] [id number]-[place] [address] Phone Care Team Providers Care Bi Report Developer Name Role Phone Anand Duncan NP Unavailable [...] Diagnoses Date Provider Providers Copied on Encounter [facility], [address] Iz[address]E1 84917[address]- [facility], [place], [place], [address], [place] tel:[phone] [facility] No Information 2 Dakota Anand. [address] [place], [address], [place]. tel:[phone] [facility], [address] Rvisq383A9 7470974JU- [place], [address], [place] tel:[phone] Behavioral Medicine F2 Medication Management (chief complaint)Eder izoaffective disorder (chief complaint)Gen eralized Anxiety Disorder (chief complaint) Schizoaffect filemon disorder, bipolar typeGenerali zed anxiety disorder Sep- 2 Kendirck Cabrera. [address] [place], [place], [address], [place]. tel:[phone] Referring Provider: Deborah Marks, [address] [place], [address] . tel:[phone] [facility], [address] Mtioz525R5 2992036CL- [place], [address], [place] tel:[phone] Vision F1 Encounter for fit/adjst of spectacles and contact lenses Jan- 2 Genia Aponte. [address], [place], [address], [place]. tel:[phone] Referring Provider: Fay Cormier , [address] [place], [address] . tel:[phone] [facility], [address] Cakol380G3 9671512XR- [place], [address], [place] tel:[phone] [facility] No Information Jan-[address] [facility], [address] [id number] 5291387XSHydetown, [place], [address], [place] tel:[phone] Behavioral Medicine F2 Schizoaffect filemon disorder, bipolar type Jan- 2 Kendrick Cabrera. [address] [place], [place], [address], [place]. tel:[phone] Referring Provider: Deborah Marks, [address] [place], [address] . tel:[phone] OFFICE/OUTPA TIENT VISIT EST [facility], [address] Yeadf055V0 2683563GK- [place], [address], [place] tel:[phone] [facility] Est care (chief complaint) Hypertension PrediabetesM ixed hyperlipidem iaEncounter for immunization Jan-0 2 Horacio Blackman. [address] [place], [address], [place]. tel:[phone] Referring Provider: Hiral Leonard, [address] [place], [address]. tel:[phone] [facility], [address] Nczmu574T2 8399949QK- [place], [address], [place] tel:[phone] Behavioral Medicine F2 Medication Management (chief complaint)Eder izoaffective disorder (chief complaint)Gen eralized Anxiety Disorder (chief complaint) Schizoaffect filemon disorder, bipolar typeGenerali zed anxiety disorder 2 Kendrick Cabrera. [address] [place], [place], [address], [place]. tel:[phone] Referring Provider: Deborah Marks, [address] [place], [address] . tel:[phone] [facility], [address] Jrndd986C5 9570514OM- [place], [address], [place] tel:[phone] Vision F1 blurry vision (chief complaint) Hypermetropi a, bilateralReg ular astigmatism, bilateralPre sbyopiaAge-r elated nuclear cataract, bilateral 2 Genia Aponte. [address], [place], [address], [place]. tel:[phone] Referring Provider: Fay Cormier , [address] [place], [address] . tel:[phone] [facility], [address] Wfmmn458M4 8506545BRHydetown, [place], [address], [place] tel:[phone] Behavioral Medicine F2 Medication Management (chief complaint)Eder izophrenia (chief complaint)Gen eralized Anxiety Disorder (chief complaint) Undifferenti ated schizophreni aGeneralized anxiety disorder 2 Kendrick Cabrera. [address] [place], [place], [address], [place]. tel:[phone] Referring Provider: Deborah aMrks, [address] [place], [address] . tel:[phone] [facility], [id number] [place] [address], [address], [place] tel:[phone] Behavioral Medicine F2 Schizoaffect filemon disorder, bipolar type 2 Kendrick Cabrera. [address] [place], [place], [address], [place]. tel:[phone] Referring Provider: Deborah Marks, [address] [place], [address] . tel:[phone] [facility], [address] [place] [address], [address], [place] tel:[phone] Behavioral Medicine F2 Medication Management (chief complaint)Anx iety (chief complaint)und ifferentiated schizophrenia (chief complaint) Generalized anxiety disorderUndi fferentiated schizophreni a 2 Kendrick Cabrera. [address] [place], [place], [address], [place]. tel:[phone] Referring Provider: Deborah Marks, [address] [place], [address] . tel:[phone] OFFICE/OUTPA TIENT VISIT EST [facility], [address] Mvkil730X9 1886039BBHydetown, [place], [address], [place] tel:[phone] Behavioral Medicine F2 Hyperglycemia (chief complaint) Hyperglycemi aType 2 diabetes mellitus without complication s 2 Dakota Michel. [address] [place], [address], [place]. tel:[phone] Referring Provider: Anand Duncan, [address] [place], [address]. tel:[phone] [facility], [address] Lblgg197S5 3126885WWHydetown, [place], [address], [place] tel:[phone] Behavioral Medicine F2 Medication Management (chief complaint)Eder izophrenia (chief complaint)Gen eralized Anxiety Disorder (chief complaint) Undifferenti ated schizophreni aGeneralized Anxiety Disorder 2 Kendrick Cabrera. [address] [place], [place], [address], [place]. tel:[phone] Referring Provider: Deborah Marks, [address] [place], [address] . tel:[phone] OFFICE/OUTPA TIENT VISIT, [facility], [address] Gkbgj861T0 7786418LFHydetown, [place], [address], [place] tel:[phone] Behavioral Medicine F2 EPS (chief complaint) Extrapyramid al and movement disorder 2 Dakota Michel. [address] [place], [address], [place]. tel:[phone] Referring Provider: Anand Duncan, [address] [place], [address]. tel:[phone] OFFICE/OUTPA TIENT VISIT [facility], [address] Ymsjz510X4 9858430KGHydetown, [place], [address], [place] tel:[phone] Behavioral Medicine F2 Counseling (chief complaint) Counseling and coordination of careHypergly cemiaHyponat remia 2 Dakota Michel. [address] [place], [address], [place]. tel:[phone] Referring Provider: Anand Duncan, [address] [place], [address]. tel:[phone] [facility], [address] Dooec958X7 7874261YZ- [place], [address], [place] tel:[phone] Behavioral Medicine F2 Medication Management (chief complaint)Eder izophrenia (chief complaint)Gen eralized Anxiety Disorder (chief complaint) Undifferenti ated schizophreni aGeneralized Anxiety Disorder 2 Kendrick Cabrera. [address] [place], [place], [address], [place]. tel:[phone] Referring Provider: Deborah Marks, [address] [place], [address] . tel:[phone] OFFICE/OUTPA TIENT VISIT [facility], [address] Qtmip025R3 7721808VWHydetown, [place], [address], [place] tel:[phone] Behavioral Medicine F2 Follow Up (chief complaint) Benign prostatic hyperplasia with urinary frequencySch izophrenia, unspecified type 2 Dakota Michel. [address] [place], [address], [place]. tel:[phone] Referring Provider: Anand Duncan, [address] [place], [address]. tel:[phone] OFFICE/OUTPA TIENT VISIT, [facility], [address] Mbgsm389A9 4406809ITHydetown, [place], [address], [place] tel:[phone] [facility] Weakness (chief complaint) WeaknessChro lizet cough 2 Bina Aponte. [address], [place], [address], [place]. tel:[phone] Referring Provider: Fadi Curran, [address] [place], [address] . tel:[phone] OFFICE/OUTPA TIENT VISIT EST [facility], [address] Yhbrw660B7 9136861MR- [place], [address], [place] tel:[phone] Behavioral Medicine F2 Several Concerns (chief complaint) Acute coughSchizoa ffective disorder, bipolar typePrediabe tesBenign prostatic hyperplasia with urinary frequencyExt rapyramidal and movement disorderRash and other nonspecific skin eruptionHema turia, unspecified 2 Dakota Michel. [address] [place], [address], [place]. tel:[phone] Referring Provider: Anand Duncan, [address] [place], [address]. tel:[phone] [facility], [address] Duucj848K0 5095765EL- [place], [place], [address], [place] tel:[phone] Behavioral Medicine F2 Schizoaffect filemon disorder, bipolar type 2 Kendrick Cabrera. [address] [place], [place], [address], [place]. tel:[phone] Referring Provider: Deborah Marks, [address] [place], [address] . tel:[phone] [facility], [address] Xhupk855G7 6135393DW- [place], [address], [place] tel:[phone] Behavioral Medicine F2 Medication Management (chief complaint)Eder izophrenia (chief complaint) Undifferenti ated schizophreni aGeneralized Anxiety Disorder 2 Kendrick Cabrera. [address] [place], [place], [address], [place]. tel:[phone] Referring Provider: Deborah Marks, [address] [place], [address] . tel:[phone] [facility], [address] Emlww694B5 8643282ZO- [place], [place], [address], [place] tel:[phone] [facility] No Information 2 Jo Portillo. [address], [place], [address], [place]. tel:[phone] Referring Provider: Bandar Osorio, [address] [place], [address] . tel:[phone] OFFICE/OUTPA TIENT VISIT, [facility], [address] Wlhst062Q7 1195831OS- [place], [address], [place] tel:[phone] [facility] cough (chief complaint) CoughNasal congestion with rhinorrhea 2 Jo Portillo. [address], [place], [address], [place]. tel:[phone] Referring Provider: Bandar Osorio, [address] [place], [address] . tel:[phone] PSYTX PT&/FAMILY [address] [facility], [address] Yvwqr752M4 7780389MB- [place], [address], [place] tel:[phone] [facility] Schizoaffect filemon disorder, bipolar type 2 Myron [place]. [address] [facility] , [place], [place], [address], [place]. tel:[phone] Referring Provider: Celso Sanches, [address] [place], [address] . tel:[phone] OFFICE/OUTPA TIENT VISIT [facility], [address] Shysp234D3 9548963YU- [place], [address], [place] tel:[phone] Behavioral Medicine F2 Tremors (chief complaint) Schizoaffect filemon disorder, bipolar typeType 2 diabetes mellitus without complication , without long-term current use of insulinExtra pyramidal and movement disorderEsse ntial (primary) hypertension Other mcc (current) drug therapyPredi abetesTremor , unspecified Apr-0 2 Dakota Michel. [address] [place], [address], [place]. tel:[phone] Referring Provider: Anand Duncan, [address] [place], [address]. tel:[phone] OFFICE/OUTPA TIENT VISIT EST [facility], [address] Catwu330A5 7693381KJHydetown, [place], [address], [place] tel:[phone] Behavioral Medicine F2 URI (chief complaint) Acute bronchitis due to other specified organisms Mar-3 2 Dakota Michel. [address] [place], [address], [place]. tel:[phone] Referring Provider: Anand Duncan, [address] [place], [address]. tel:[phone] [facility], [address] Nmyvs691Q3 5618415PCHydetown, [place], [address], [place] tel:[phone] Behavioral Medicine F2 new psych (chief complaint) Schizoaffect filemon disorder, bipolar type Mar-3 2 No Information OFFICE/OUTPA TIENT VISIT EST [facility], [address] Httsl912P3 8560343ZHJunction, [place], [address], [place] tel:[phone] Behavioral Medicine F2 Injection (chief complaint) Schizophreni a, unspecified type Mar-2 2 Dakota Michel. [address] [place], [address], [place]. tel:[phone] Referring Provider: Anand Duncan, [address] [place], [address]. tel:[phone] PSYTX PT&/FAMILY [address] [facility], [address] Fxdxw730O3 7291983IC- [place], [address], [place] tel:[phone] [facility] Schizophreni a, unspecified type 2 Lyle Blunt. [address], [place], [address], [place]. tel:[phone] Referring Provider: Merlene Alvarenga, [address] [place], [address] . tel:[phone] OFFICE/OUTPA TIENT VISIT EST [facility], [address] Fiagb768U3 4824278MOJunction, [place], [address], [place] tel:[phone] [facility] cough/ congestion (chief complaint)htn (chief complaint) Acute coughNasal congestion with rhinorrheaFl uOther schizophreni aHypertensio n 2 Jo Portillo. [address], [place], [address], [place]. tel:[phone] Referring Provider: Bandar Osorio, [address] [place], [address] . tel:[phone] [facility], [address] Yhkfb510T2 6258440DZHydetown, [place], [address], [place] tel:[phone] Family [facility] No Information 2 Marjorie Moreno. [address] [place], [place], [address], [place]. tel:[phone] Referring Provider: Tiffanie Amador, [address] [place], [address] . tel:[phone] [facility], [address] Egzqc411X6 1580401GXJunction, [place], [address], [place] tel:[phone] [facility] No Information 1 Evan Roque. [address], [place], [address], [place]. tel:[phone] Referring Provider: Mya Gusman, [address] [place], [address] . tel:[phone] OFFICE/OUTPA TIENT VISIT, [facility], [address] Gnylf863T1 8094771BUHydetown, [place], [address], [place] tel:[phone] Behavioral Medicine F2 Schizophreni a, unspecified type 1 Evan Roque. [address], [place], [address], [place]. tel:[phone] Referring Provider: Mya Gusman, [address] [place], [address] . tel:[phone] OFFICE/OUTPA TIENT VISIT [facility], [address] Qkjkg146T8 0064374OUHydetown, [place], [address], [place] tel:[phone] [facility] prediabetes (chief complaint)Silvia k pain (chief complaint)BPH (chief complaint) PrediabetesT ype 2 diabetes mellitus without complication , without long-term current use of insulinChron ic bilateral low back pain with right-sided sciaticaOthe r chronic painBenign prostatic hyperplasia with urinary frequency 1 Evan Roque. [address], [place], [address], [place]. tel:[phone] Referring Provider: Mya Gusman, [address] [place], [address] . [phone] [facility], [address] Dbdxu519V0 2120699GLHydetown, [place], [address], [place] tel:[phone] [facility] No Information 1 Bina Aponte. [address], [place], [address], [place]. tel:[phone] Referring Provider: Fadi Curran, [address] [place], [address] . tel:[phone] OFFICE/OUTPA TIENT VISIT, EST [facility], [address] Tmbxl448W2 7355603HI- [facility], [place], [place], [address], [place] tel:[phone] [facility] Right upper leg pain / burning for the past (chief complaint) Right sided sciatica Feb-2 1 Jaren Larson. [address], [place], [address], [place]. tel:[phone] Referring Provider: Marsha Eastman, [address] [place], [address] . tel:[phone] [facility], [address] Juftm569T0 5488901LDHydetown, [place], [address], [place] tel:[phone] Behavioral [facility] F2 Schizophreni a, unspecified type Feb- 1 Evan Roque. [address], [place], [address], [place]. tel:[phone] Referring Provider: Mya Gusman, [address] [place], [address] . tel:[phone] [facility], [address] Nvvqg948N0 5819048HQ- [place], [place], [address], [place] tel:[phone] Family Medicine F1 Change of job 0 1 [facility]. [address], [place], [address], [place]. tel:[phone] [facility], [address] Nhcvg578O7 0470956KW- [place], [place], [address], [place] tel:[phone] [facility] F2 Schizophreni a, unspecified type Jan- 1 Evan Roque. [address], [place], [address], [place]. tel:[phone] Referring Provider: Mya Gusman, [address] [place], [address] . tel:[phone] OFFICE/OUTPA TIENT VISIT, [facility], [address] Mzodu684P0 6302749OC- [place], [place], [address], [place] tel:[phone] [facility] Earache (chief complaint) Acute otitis externa of right ear, unspecified type 1 Evan Roque. [address], [place], [address], [place]. tel:[phone] Referring Provider: Mya Gusman, [address] [place], [address] . tel:[phone] OFFICE/OUTPA TIENT VISIT, [facility], [address] Iotrw034W1 6408522GLHydetown, [place], [address], [place] tel:[phone] [facility] Schizophreni a, unspecified type 1 Evan Roque. [address], [place], [address], [place]. tel:[phone] Referring Provider: Mya Gusman, [address] [place], [address] . tel:[phone] [facility], [address] Cfgjp655J0 4539020ADHydetown, [place], [address], [place] tel:[phone] Family Medicine F1 Cough 1 Med [facility]. [address], [place], [address], [place]. tel:[phone] Referring Provider: Theron Jovel, [address] [place], [address] . tel:[phone] OFFICE/OUTPA TIENT VISIT [facility], [address] Vckcw330J5 0384107TUJunction, [place], [address], [place] tel:[phone] [facility] Viral syndrome (chief complaint)cou gh, congestion x 1 wk (chief complaint) Contact with and (suspected) exposure to other viral communicable diseasesVira l URI 1 [facility]. [address], [place], [address], [place]. tel:[phone] Referring Provider: Theron Jovel, [address] [place], [address] . tel:[phone] [facility], [address] Mcxnh083K1 5096424AIHydetown, [place], [address], [place] tel:[phone] Family Medicine F1 Unemployment 1 [facility]. [address], [place], [address], [place]. tel:[phone] [facility], [address] Txapd351D7 7806241TXHydetown, [place], [address], [place] tel:[phone] Behavioral Medicine F2 No Information 1 Evan Roque. [address], [place], [address], [place]. tel:[phone] Referring Provider: Mya Gusman, [address] [place], [address] . tel:[phone] [facility], [address] Xyvhs744D1 5032385VUHydetown, [place], [address], [place] tel:[phone] [facility] behavioral health f/u (chief complaint)dep ression (chief complaint) Schizophreni a, unspecified type 1 Evan Roque. [address], [place], [address], [place]. tel:[phone] Referring Provider: Mya Gusman, [address] [place], [address] . tel:[phone] [facility], [address] Itvtk093Z1 6918041ZYHydetown, [place], [address], [place] tel:[phone] [facility] Schizophreni a, unspecified type 1 Gordon Mya. [address], [place], [address], [place]. tel:[phone] Referring Provider: Mya Gusman, [address] [place], [address] . tel:[phone] [facility], [address] Llzyx498B9 6782604KSHydetown, [place], [address], [place] tel:[phone] [facility] Schizoaffecti ve disorder (chief complaint) Hypo-osmolal ity and hyponatremia Other ferry terminal supervisor (current) drug therapyMixed hyperlipidem iaSchizophre michaela, unspecified type 1 Evan Mya. [address], [place], [address], [place]. tel:[phone] Referring Provider: Mya Gusman, [address] [place], [address] . tel:[phone] [facility], [address] Aekfg924E1 5075788WJHydetown, [place], [address], [place] tel:[phone] [facility] Schizophreni a, unspecified type 1 Evan Roque. [address], [place], [address], [place]. tel:[phone] Referring Provider: May Gusman, [address] [place], [address] . tel:[phone] OFFICE/OUTPA TIENT VISIT, EST [facility], [address] Hfcel051Q8 7611292TXHydetown, [place], [address], [place] tel:[phone] [facility] knots on legs (chief complaint) Worried well 1 Evan Roque. [address], [place], [address], [place]. tel:[phone] Referring Provider: Mya Gusman, [address] [facility], [place], [address] . tel:[phone] [facility], [address] Mutaw915C7 4751502YX- [facility], [place], [place], [address], [place] tel:[phone] [facility] Schizophreni a, unspecified type Apr-2 1 Evan Mya. [address], [place], [address], [place]. tel:[phone] Referring Provider: Mya Gusman, [address] [facility], [place], [address] . tel:[phone] [facility], [address] Pshoj536T3 5927344EW- [place], [place], [address], [place] tel:[phone] [facility] Schizophrenia (chief complaint) Schizophreni a, unspecified type Mar-2 1 Evan Mya. [address], [place], [address], [place]. tel:[phone] Referring Provider: Mya Gusman, [address] [place], [address] . tel:[phone] OFFICE/OUTPA TIENT VISIT, [facility], [address] Cmmit847W7 6463263RS- [facility], [place], [place], [address], [place] tel:[phone] [facility] Dizziness (chief complaint) Dizzy Mar-0 1 Evan Mya. [address], [place], [address], [place]. tel:[phone] Referring Provider: Mya Gusman, [address] [place], [address] . tel:[phone] [facility], [address] Qlian854J6 2555753VJ[facility], [place], [place], [address], [place] tel:[phone] [facility] Schizophreni a, unspecified type Mar-0 1 Gordon Mya. [address], [place], [address], [place]. tel:[phone] Referring Provider: Mya Gusman, [address] [place], [address] . tel:[phone] [facility], [address] Kjwhi902Q9 5462192NNJunction, [place], [address], [place] tel:[phone] [facility] Schizophreni a, unspecified type 1 Gordon Mya. [address], [place], [address], [place]. tel:[phone] Referring Provider: Mya Gusman, [address] [place], [address] . tel:[phone] [facility], [address] Rsexr855R3 3022258ENHydetown, [place], [address], [place] tel:[phone] Family Medicine F1 Schizophreni a, unspecified type 0 Gordon Mya. [address], [place], [address], [place]. tel:[phone] Referring Provider: Mya Gusman, [address] [place], [address] . tel:[phone] [facility], [address] Svnpz549F0 5397582WFHydetown, [place], [address], [place] tel:[phone] Behavioral Medicine F2 No Information 0 Gordon Mya. [address], [place], [address], [place]. tel:[phone] Referring Provider: Mya Gusman, [address] [place], [address] . tel:[phone] OFFICE/OUTPA TIENT VISIT, EST [facility], [address] Epqbm749O6 9796862WJ- [place], [place], [address], [place] tel:[phone] [facility] Referral for urologist (chief complaint)bed bugs (chief complaint)Blo od in stool (chief complaint) Urinary frequencyBlo od in stoolInfesta tion by bed bugOther mcc (current) drug therapyPredi abetesBenign prostatic hyperplasia with urinary frequencyOth er microscopic hematuria Apr-0 7-202 0 Evan Roque. [address], [place], [address], [place]. tel:[phone] Referring Provider: Mya Gusman, [address] [place], [address] . tel:[phone] [facility], [address] Pikws240J9 8145338AFHydetown, [place], [address], [place] tel:[phone] [facility] Schizophreni a, unspecified type 0 0 Evan Roque. [address], [place], [address], [place]. tel:[phone] Referring Provider: Mya Gusman, [address] [place], [address] . tel:[phone] OFFICE/OUTPA TIENT VISIT EST [facility], [address] Djarw402C7 4900479OJ- [place], [place], [address], [place] tel:[phone] [facility] Rash (chief complaint) Rash and other nonspecific skin eruption Mar-0 2202 0 Bina Aponte. [address], [place], [address], [place]. tel:[phone] Referring Provider: Fadi Curran, [address] [place], [address] . tel:[phone] [facility], [address] Pqoaa954W9 7703539TGJunction, [place], [address], [place] tel:[phone] [facility] Schizophreni a, unspecified type Feb 0 Gordon Mya. [address], [place], [address], [place]. tel:[phone] Referring Provider: Mya Gusman, [address] [place], [address] . tel:[phone] [facility], [address] Veifh350D4 1008817UZ- [place], [place], [address], [place] tel:[phone] [facility] Schizophreni a, unspecified type Sep-3 0 Gordon Mya. [address], [place], [address], [place]. tel:[phone] Referring Provider: Mya Gusman, [address] [place], [address] . tel:[phone] [facility], [address] Eazgp652G7 2631069YLHydetown, [place], [address], [place] tel:[phone] [facility] Schizophrenia (chief complaint) Schizophreni a, unspecified typeGenerali zed Anxiety Disorder 0 Gordon Mya. [address], [place], [address], [place]. tel:[phone] Referring Provider: Mya Gusman, [address] [place], [address] . tel:[phone] [facility], [id number]- [place], [id number], [place] tel:[phone] [facility] Generalized Anxiety Disorder Nov- 0 Evan Mya. [address], [place], [id number], [place]. tel:[phone] Referring Provider: Mya Gusman, [address] [place], [address] . tel:[phone] [facility], [id number], [id number], [place] tel:[phone] Family [facility] F1 Schizophreni a, unspecified type 0 Gordon Mya. [address] [place], [place], [address], [place]. tel:[phone] Referring Provider: Mya Gusman, [address] [place], [address] . tel:[phone] [facility], [address]qth[address]D0 6418670ABHydet[place], [place], [address], [place] tel:[phone] Family Medicine F2 schizophrenia (chief complaint) Schizophreni a, unspecified typeGenerali zed Anxiety Disorder 0 Gordon Mya. [address] [place], [place], [address], [place]. tel:[phone] Referring Provider: Mya Gusman, [address] [place], [address] . tel:[phone] [facility], [address] Fvhks922G0 5649710XCJunction, [place], [address], [place] tel:[phone] Family Medicine F1 hypertension (chief complaint) No Information 0 Gordon Mya. [address] [place], [place], [address], [place]. tel:[phone] Referring Provider: Mya Gusman, [address] [place], [address] . tel:[phone] [facility], [address]axwz274O1 3791639CPJunction, [place], [address], [place] tel:[phone] Family Medicine F1 Schizophrenia (chief complaint) Schizophreni a, unspecified typeFrequenc y of micturition 0 Gordon Mya. [address] [place], [place], [address], [place]. tel:[phone] Referring Provider: Mya Gusman, [address] [place], [address] . tel:[phone] OFFICE/OUTPA TIENT VISIT, EST [facility], [address] Qrzxd793U2 6529178DL- [place], [address], [place] tel:[phone] Family Medicine F1 Blood in urine (chief complaint) Frequency of micturition Aug-2 0 Evan Roque. [address] [place], [place], [address], [place]. tel:[phone] Referring Provider: Mya Gordon R, [address] [place], [address] . tel:[phone] [facility], [address] Zmttt396O6 6313872SUHydet[place], [place], [address], [place] tel:[phone] Family Medicine F1 Hematuria, unspecified 0 Cale Hernandez. [address] [place], [place], [address], [place]. tel:[phone] Referring Provider: David Flores, [address] [place], [address] . tel:[phone] [facility], [address] Fthip329V2 1177888EIHydetown, [place], [address], [place] tel:[phone] Behavioral Medicine F2 No Information 0 No Information OFFICE/OUTPA TIENT VISIT EST [facility], [address] Vfotc996Q6 1711702NLHydetown, [place], [address], [place] tel:[phone] Behavioral Medicine F2 Follow Up of Mood (chief complaint)Fol low Up of Go over labs (chief complaint)Fol low Up of BPH (chief complaint)Fol low Up of HTN (chief complaint)Fol low Up of Medication Refills (chief complaint) Benign prostatic hyperplasia with urinary frequencyFre quency of micturitionG eneralized Anxiety DisorderHypo natremiaHype rtensionMixe d hyperlipidem iaSchizophre michaela, unspecified typeOther mcc (current) drug therapy Jul-3 0 Aquilino Potter. [address] [place], [place], [address], [place]. tel:[phone] Referring Provider: Abbey Rolle, [address] [place], [address] . tel:[phone] [facility], [address] Azgjg735Z4 5436795JCHydetown, [place], [address], [place] tel:[phone] Behavioral Medicine F2 Mixed hyperlipidem iaEssential (primary) hypertension Other mcc (current) drug therapy Jul-2 0 No Information OFFICE/OUTPA TIENT VISIT, EST [facility], [address] Qplah375R2 4490197RYHydetown, [place], [address], [place] tel:[phone] Behavioral Medicine F2 Schizophrenia (chief complaint)MAIDA (chief complaint)med ication management (chief complaint) Schizophreni a, unspecified type Jul-[address] [facility], [address] Mgbrw414D3 4444102IWNewnan, [place], [address], [place] tel:[phone] [facility] Schizophreni a, unspecified type Jul-0 0 Evan Roque. [address] [place], [place], [address], [place]. tel:[phone] Referring Provider: Mya Gusman, [address] [place], [address] . tel:[phone] [facility], [address] Ikcoe298O2 5967951QQHydetown, [place], [address], [place] tel:[phone] [facility] Schizophreni a, unspecified type Fe- 0 Evan Roque. [address] [place], [place], [address], [place]. tel:[phone] Referring Provider: Mya Gusman, [address] [place], [address] . tel:[phone] [facility], [address] Vsmxn283Q4 9009975ET- [facility], [place], [place], [address], [place] tel:[phone] [facility] No Information 0 Evan Roque. [address] [place], [place], [address], [place]. tel:[phone] Referring Provider: Mya Gusman, [address] [place], [address] . tel:[phone] OFFICE/OUTPA TIENT VISIT, [facility], [address] Htiyu935O2 6071639LAJunction, [place], [address], [place] tel:[phone] [facility] Shortness of breath (chief complaint) COPD 0 Evan Roque. [address] [place], [place], [address], [place]. tel:[phone] Referring Provider: Mya Gusman, [address] [place], [address] . tel:[phone] [facility], [address] Pvohr096G3 3539699CGJunction, [place], [address], [place] tel:[phone] [facility] No Information 0 Evan Roque. [address] [place], [place], [address], [place]. tel:[phone] Referring Provider: Mya Gusman, [address] [place], [address] . tel:[phone] [facility], [address] Wqfag765Z5 3138450VMJunction, [place], [address], [place] tel:[phone] [facility] Follow Up of Schizophrenia (chief complaint) Schizophreni a, unspecified typeGenerali zed Anxiety Disorder May-0 9-202 0 Gordon Mya. [address] [place], [place], [address], [place]. tel:[phone] Referring Provider: Mya Gusman, [address] [place], [address] . tel:[phone] [facility], [address] Jbzpd301U0 3992419CLHydetown, [place], [address], [place] tel:[phone] [facility] Schizophreni a, unspecified type 0 2-202 0 Gordon Mya. [address] [place], [place], [address], [place]. tel:[phone] Referring Provider: Mya Gusman, [address] [place], [address] . tel:[phone] [facility], [address] Zhtik446Y9 8744507EAHydetown, [place], [address], [place] tel:[phone] [facility] (chief complaint) Other mcc (current) drug therapySchiz ophrenia, unspecified typeGenerali zed Anxiety Disorder Apr-0 201 9 Gordon Mya. [address] [place], [place], [address], [place]. tel:[phone] Referring Provider: Mya Gusman, [address] [place], [address] . tel:[phone] [facility], [address] Ebwtm684P8 4473913IOHydetown, [place], [address], [place] tel:[phone] [facility] Schizophreni a, unspecified type 0 9 Gordon Mya. [address] [place], [place], [address], [place]. tel:[phone] Referring Provider: Mya Gusman, [address] [place], [address] . tel:[phone] OFFICE/OUTPA TIENT VISIT [facility], [address] Rxjin010F7 7263851WFJunction, [place], [address], [place] tel:[phone] [facility] Est. Care (chief complaint)Mus culoskeletal pain (chief complaint)Tamela rrhea (chief complaint) Diarrhea, unspecified typeSciatica of left sideSchizoph herb, unspecified typeOther mcc (current) drug therapy 9 Evan Roque. [address] [place], [place], [address], [place]. tel:[phone] Referring Provider: Mya Gusman, [address] [place], [address] . tel:[phone] OFFICE/OUTPA TIENT VISIT, [facility], [address] Adxve234I1 8679003VVHydetown, [place], [address], [place] tel:[phone] Family Medicine F1 Body aches, nausea, (chief complaint) Viral syndrome 9 No Information OFFICE/OUTPA TIENT VISIT, [facility], [address] Fhzbj730Z4 6172473GQHydetown, [place], [address], [place] tel:[phone] Family Medicine F1 Hospital F/U (chief complaint) Hospital discharge follow-up [address] [facility], [address] Qtcem164V6 8019526FUHydetown, [place], [address], [place] tel:[phone] Family Medicine F1 Generalized Anxiety Disorder 9 No Information OFFICE/OUTPA TIENT VISIT, [facility], [address] Kctbd358Q7 8015923VVHydetown, [place], [address], [place] tel:[phone] Family Medicine F1 Exam diarrhea (chief complaint) Diarrhea, unspecified type 9 Bina Aponte. [address] [place], [place], [address], [place]. tel:[phone] Referring Provider: Fadi Curran, [address] [place], [address] . tel:[phone] OFFICE/OUTPA TIENT VISIT, [facility], [address] Abrjb194F0 4783779WUHydetown, [place], [address], [place] tel:[phone] Family Medicine F1 Diarrhea (chief complaint) Diarrhea, unspecified type Feb-0 [address] [facility], [address] Oqwer255H2 0749125JMHydetown, [place], [address], [place] tel:[phone] Family Medicine F1 No Information Feb-[address] [facility], [address] Dhsee889V2 7067936UDHydetown, [place], [address], [place] tel:[phone] Family Medicine F1 No Information Feb-0 9 Jose D Armstrong. [address] [place], [place], [address], [place]. tel:[phone] Referring Provider: Nathaniel Jeffery, [address] [place], [address] . tel:[phone] OFFICE/OUTPA TIENT VISIT, [facility], [address] Oasbv174I0 7188340UPHydetown, [place], [address], [place] tel:[phone] Family Medicine F1 Diarrhea (chief complaint) Diarrhea, unspecified typeTremors of nervous system Sep-3 0 9 No Information OFFICE/OUTPA TIENT VISIT, [facility], [address] Mztkn428E4 6853138WBHydetown, [place], [address], [place] tel:[phone] Family Medicine F1 Hospital F/U (chief complaint) Homelessness Hospital discharge follow-up Jan- 9 No Information OFFICE/OUTPA TIENT VISIT, [facility], [address] Epesa[address]Q3 0994563ET- [facility], [place], [place], [address], [place] tel:[phone] Family Medicine F1 Invega Injection (chief complaint) Schizophreni a, unspecified type No Information OFFICE/OUTPA TIENT VISIT, [facility], [address] Mlgej012J4 3031688YEN[facility], [place], [place], [address], [place] tel:[phone] Family Medicine F1 Medication Management (chief complaint)Nee ds Note (chief complaint) Generalized Anxiety DisorderHype rtensionUrin hanane frequencyMix ed hyperlipidem ia No Information [facility], [address] Kwtwn158Y3 5455111FMNorthwest [facility], [place], [place], [address], [place] tel:[phone] Family Medicine F1 Pain in left foot 9 Suzanne Rodriguez. [address] [place], [place], [address], [place]. [phone] Referring Provider: Michael Palacios, [address] [place], [address] . tel:[phone] [facility], [address] Vizxp974P1 1358119SV[facility], [place], [place], [address], [place] tel:[phone] Family Medicine F1 No Information 9 No Information OFFICE/OUTPA TIENT VISIT, [facility], [address] Wmqkr184X5 8240309CYHydetown, [place], [address], [place] tel:[phone] Family Medicine F1 Left foot pain (chief complaint) Left foot painHomeless ness [address] [facility], [address] Uqbnj832M1 4597723YUJunction, [place], [address], [place] tel:[phone] Family Medicine F1 Homelessness 9 [facility]. [address] [place], [place], [address], [place]. tel:[phone] Referring Provider: [facility], [address] [place], [address] . tel:[phone] OFFICE/OUTPA TIENT VISIT, EST [facility], [address] Jzqvm664F5 6917588KL- [place], [place], [address], [place] tel:[phone] Family Medicine Establish Care (chief complaint)walt elessness (chief complaint) Generalized Anxiety DisorderHype rtensionMixe d hyperlipidem iaHomelessne ss No Information [facility], [address] Dgbvz786N0 1753040MVJunction, [place], [address], [place] tel:[phone] Family Medicine Homelessness 9 [facility]. [address] [place], [place], [address], [place]. [phone] Referring Provider: [facility], [address] [place], [address] . tel:[phone] [facility], [address] Jzqwr336X4 0291809MR- [place], [place], [address], [place] tel:[phone] [facility] Other specified counseling No Information [facility], [address] Rkchq366C9 8522130OP- [place], [place], [address], [place] tel:[phone] [facility] No Information 9 Dakota Michel. [address] [place], [address], [place]. tel:[phone] Referring Provider: Anand Duncan, [address] [place], [address]. tel:[phone] [facility], [address] Dujbs566V2 2932685CC- [facility], [place], [place], [address], [place] tel:[phone] [facility] No Information 9 Dakota Michel. [address] [place], [address], [place]. tel:[phone] Referring Provider: Anand Duncan, [address] [place], [address]. tel:[phone] [facility], [address] Kyjuv166H6 3323679OVJunction, [place], [address], [place] tel:[phone] [facility] No Information 8 Dakota Michel. [address] [place], [address], [place]. tel:[phone] Referring Provider: Anand Duncan, [address] [place], [address]. tel:[phone] OFFICE/OUTPA TIENT VISIT, [facility], [address] Azqgs518L0 9840506FLJunction, [place], [address], [place] tel:[phone] [facility] Est. Care (chief complaint)Chr onic conditions (chief complaint) Hypertension Mixed hyperlipidem iaGeneralize d Anxiety DisorderHypo natremiaUrin hanane frequency 8 Dakota Michel. [address] [place], [address], [place]. tel:[phone] Referring Provider: Anand Duncan, [address] [place], [address]. tel:[phone] [facility], [address] Ltybq048D7 0565918MZJunction, [place], [address], [place] tel:[phone] [facility] No Information 3201 8 Dakota Michel. [address] [place], [address], [place]. tel:[phone] Family History Family Member Type Diagnosis Age At Onset No Information Immunizations Vaccine Date Status Comments Tdap (7 yrs and older) administered Note: VIS: 12/17/20 Patient had no reaction while in clinic. kw ; Source: New Immunization Record Flu Vaccine 6 Months and older administered Source: Public Agenc y Flu Vaccine 6 Months and older administered Note: pt reports at [facility] ; Source: Source Unspecified Payers Payer name Insurance type Covered republican ID Authorizbayron quiñones(s) M [facility] Dual Com plete Medica [place] [id number] [place] Medicaid [id number] [facility] Dual Com plete Medica [place] [id number] [place] Medicaid [id number] Social History Type Description Quantity Date Captured [...] counseling completed Referral Ordered: Ref[facility]: [facility]. [facility] ordered Referral Ordered: Referrals: Urology. Location: [facility]. Assume care ordered Referral Ordered: Referrals: physcial therapy. Location: [facility]. Evaluate and treat ordered Referral Ordered: AARP (related to Unemployment) ordered Referral Ordered: Referrals: Location: [facility] (related to Unemployment) ordered Referral Ordered: Referrals: Urology. Location: [facility]. Evaluate and treat ordered Referral Ordered: Referrals: Urology ordered Referral Ordered: Referrals: neurologist ordered Referral Ordered: Referrals: [place] ordered Referral Ordered: Referrals: Location: [facility] ordered Referral Ordered: Referrals: Urology. Consult ordered Patient Education Sciatica: Exercises com pleted Patient Education Sciatica: Care Instruct ions completed Patient Education Sciatica: Exercises com pleted Patient Education Low Back Pain: Exercise s completed Future Order: Lab Order XonR9b-X linic/POC ([id number]), Appointment on: , Sent on: Sent Future Order: Lab Order COVID-19 PCR-JV ([id number]), Sent on: Sent Future Order: Radiology Order Ch est 2 Views ([id number]), Ordered on: Ordered History Of Present Illness Encounter Date Complaint History Of Prese nt Illness Medication Management Telephone appointment today.Robert reports he has moved to [place] and is needing his injection sent to the Pharmacy in [place] to make sure he does not miss a dosage. He states he relocated there with his brother.He states he could not take it anymore in [place], and needed to get out of town.He denies SI/HI/AH/VH.He has no complaints or concerns at this time.Plans on establishing care in [place] for Psychiatric Care. Schizoaffective disorder This is [...] denies any associated symptoms. Generalized Anxiety Disorder [facility] care Patient here todaniel rodriguez to establish careH: Parkinson's diseaseMedications: reviewed Allergies: reviewed Social history: homeless Patient has issues with prediabetes, hyperlipemia, schizophrenia, BPHVocation: He is islam, he is currently homeless Social Support: He has a sister in [place] from [place]. 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 Patient is stimulated with Manic laugh. [...] PCP to a Female provider. He received TEIXERIA on 12/16 after refusing 12/14. He denies [...] He would like to see urology at [facility] for his bladder and BPH- no [...] with a friend. Was recently seen in [facility] and encouraged to follow up with PCP. When discussing appointment with patient today, he states everything is fine. He denies SI/HI/AH/VH. He feels his tremors have decreased with cogentin. He is slightly dishevel in appearance. He has a laundry bag with him today, and states he is going to go to the battery loader after this appointment. He is alert and [...] Tele-Session don e due to contract with [place] [facility] to provide off-site services; Verbal consent from Patient received; All Medications to be e-scribed through NEXT GEN -Chief Complaint / Establish care - ADMITTED TO [facility] DAYS IN JULY 2021 FOR REPORTING SUICIDAL THOUGHTS -PERRECORD - HAS HISTORY OF VERBAL AND PHYSICAL AGGRESSION - INNAPPROPRIATE SEXUAL BEHAVIORS - MANIC AND POSSIBLE MANIPULATIVE BEHAVIORS AND NON COMPLIANCE TO TREATMENT - HOMELESS -WITH POOR INSIGHT - [facility] - DISCHARGED ON INVEGA SUSTENNA 156MG [...] of Delusion:-YES- Past/ I GET SPIRITS- HYPER YARSANI THOUGHTS - AND PARANOIA Reports Hx of [...] Alcohol- ; DENIED SOCIAL HISTORYLiving Sit[facility] Martial Situation-; Children - NONE Highest Education- 6TH GRADE 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 Has a hx of hematuria. Has [...] he is seeing a urologist-Dr. Campuzano at [facility]. Pt reports that he would like to change clinics. He has surgery for his bladder in December and is wanting to see a different provider and would like to go to [facility]. Blood in stool Pertinent negati ves include abdominal distention, abdominal pain, bloating, change in bowel habits, constipation, decreased appetite, diarrhea, dysphagia, heartburn, nausea, perirectal itching, rectal pain, rectal pain associated with bleeding, vomiting and weight loss. Additional information: Pt had colonoscopy at [facility] last year. Has had this off [...] of Flomax and refer for Urologist at [facility] at this time. WBC is low at [...] medication. No SI or HI. Has a manager baby, Cr, at [facility]. Shortness of breath In the inter [...] behaviors were discussed; illegal drugs, prescription drugs, musb-icn-qaamkcw drugs, gambling, alcohol, tobacco and vaping.Reports alcoholism, [...] the time. HTNBPHHyperlipidemiaSocial History:[facility] Social Supports were discussed; roman catholic, family/friendships, therapy, and cultural/ethnic/community supports. I believe in GodPatient reports having support from God, ERROL-Cr, familySexual Orientation: born male, ID male, heterosexualMarital Status: girlfriendNumber of times /: 1/0/is . Children: noneMilitary Service: deniesLegal Information (guardian, probation, parole):Reports hx of incarcerationHas current charge for trespassing at [facility] History:Denies inutero exposure to drugs/alcoholMet milestones on [...] Care PHQ 0.Seeing a n eurologist at [facility]-for parkinsons dslast colonoscopy was 5 years [...] diarrhea today. 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 Pt requesting OTC medications prescribed. [...] note stati james he was here for [place]. Left foot pain Location: left f oot. Establish Care Pt needing to es tablish care. homelessness Pt needing help getting medications cannot afford. Est. Care The symptoms are reported as being moderate. The symptoms occur daily. He states the symptoms are chronic. Benedicto Amaral is a 58 year old male that is a Resident at [facility]. He has been there for a [...] cations without change. E-scribed Invega Injection to [facility] [facility]. 2. Will be seen again if [...] to the clinic in 3 months for O9jCihrlkfb good foot hygiene, wear closed toed shoes. [...] Related t o Undifferentiated schizophrenia referral to [facility]- he has seen urology before *about [...] o Benign prostatic hyperplasia with urinary frequency as aboveCovid PCR and CXR ordere d Related to Chronic cough *Needs PCP f/u for t his problemWill order another PCR covid test (NEG covid pcr this week) as well as CXR for his chronic coughResults pending, will contact once received, treatment if indicated Related to Weakness Follow w D. 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 A1c was normal today continue current plan of care- no medications needed todayfollow up in 2 months Related to Prediabetes labs todayAbx todayreturn as nee ded Related to Benign prostatic hyperplasia with urinary frequency Covid Test todayPlan based on results- likely NEG today Related to Acute cough Uncontrolledfollow up w DAnson Godwin gs Related to Schizoaffective disorder, bipolar [...] eeded 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 check labs todayretu rn as neededplan based on labs- Related to Type 2 diabetes mellitus without complication, without long-term current use of insulin Continue current med icationsReturn as neededFollow up in 4 weeks or sooner- Call or stop by if there are any issues, concerns, ect. Related to Schizoaffective disorder, bipolar type Dietary [...] next injection Related to Schizophrenia, unspecified type Hypertension education Related t o Schizophrenia, unspecified type Weight control education Related to Schizophrenia, unspecified type Patient advised about exercise R elated to Schizophrenia, unspecified type Dietary management e [...] wishes to have this completed at the [place] location due to nurse preference. I offered [...] EC. Reviewed methods to eradicate in apartment, microchip specialist is scheduled for tomorrow. Pt is aware of signs and sxs to contact the clinic for further treatment. Related to Infestation by bed bug Will call pt to repo rt lab results and further plan of care including adjustments to medication if indicated and recommendations for f/u. Related to Other mcc (current) drug therapy Sign ROR for colonos [...] f/u.Pt requests to move urology services to [facility]. ROR for Dr. 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 Patient will be [...] Referral for assiste d living per nurse animal daycare provider. Related to Homelessness Xray left foot today [...] call 911 or [facility] the [facility] the office in 4-6 weeks for [...]
[2024-08-12 08:41] VITALS: BP 143/101; BMI 36.0
[2024-11-05 21:59] VITALS: BP 200/111; PULSE 98; RESP 16; TEMP 36.7; O2SAT 98; BMI 34.2
--- NOTE | 2024-11-05 22:05 | ECG_ITS ---
[employer] Test Date: 2024-11-05 Pat Name: Benedicto Amaral Department: Room: Gender: Male Principal Clerk Typist: : [id number] Requested By: Sonny Naylor Order Number: [id number] Schumacher MD: Aiden Cervantes M.D. Measurements Intervals [place] Rate: 105 P: 46 ID: [id number] QRS: 7 QRSD: 88 T: 38 QT: 342 QTc: 453 Interpretive Statements SINUS TACHYCARDIA WITH OCCASIONAL VENTRICULAR PREMATURE COMPLEXES Compared to ECG 10/29/2024 16:09:38 Ventricular premature complex(es) now present Sinus rhythm no longer present Electronically Signed On 11-13-2024 09:25:50 CDT by Aiden Cervantes M.D. [id number]
--- OUTSIDE RECORDS SUMMARY | 2024-11-05 22:28 | XMS_ITS | Clinical Summary ---
Author Organization [facility] Address [address] Attn: Epic Prelude ADT FACUNDO CORRAL [id number] Care Team Providers Care Musician Instrumental Name Role Phone Unavailable Primary Care Provider Unavailabl e Allergies Active Allergy Reactions Criticality Noted Date Comments Lactose Diarrhea Medium 08/03/2022 [place] Anaphylaxis,Other (S ee Comments) High 05/02/2018 Vomiting [...] admission 06/15 Borderline diabetes 06/20/2021 Atherosclerosis of [place] co ronary artery of [place] heart without angina pectoris 06/13/2021 Benign prostatic [...] week 07/09/2021 How often [facility] you attend [facility]? More than 4 times per year 07/09/2021 Do you belong to any clubs o r organizations such as evangelical groups, unions, fraternal or athletic groups, or [...] place to sleep or slept in a skilled nursing (including now)? Yes 07/09/2021 Education Answer Date Recorded What is the highest level of school you have completed or the highest degree you have received? 8th grade 07/09/2021 Sex and Gender Information Value Date Recorded Sex Assigned at Not on file Legal Sex Male 11:12 AM SUPERVISOR BLOOD Gender Identity Not on file Sexual Orientation Not on file Last Filed Vital Signs Vital Sign Reading Time Taken Comments Blood Pressure 130/76 09/04/2022 1:01 PM CDT Pulse 85 09/04/2022 1:01 PM CDT Temperature 36.7 C (98 F) 09/04/2022 1:01 PM CDT Respiratory Rate 18 [...] Diagnosis Comments COLONOSCOPY REPORT 04/30/2019 4:17 PM SUPERVISOR BLOOD from Last 3 Months or Most Recently Relevant to Health Maintenance Results * COLONOSCOPY REPORT (04/30/2019 4:17 PM SUPERVISOR BLOOD) Teofilo Graves MD GI PROCEDURE ORDERABL ES Final Result from Last 3 Months or Most Recently Relevant to Health Maintenance Insurance [place]ICAID [place] [facility] DUAL COMPLETE HMO [facility] [id number] RX [employer] RX Member Subscriber Plan / Payer (Ef fective 2021-Present) Name:Benedicto Amaral Relation to Subscriber:Self Name:Benedicto Amaral Subscriber ID:Not on file Payer ID:Not on file Group ID:[id number] Type:RX Medicare Part D Address: [place] [facility] [id number] Advance Directives For more information, please contact: [phone] * Full Code (Latest Code Status on [...]
--- NOTE | 2024-11-05 22:34 | XRR_ITS ---
PROCEDURE INFORMATION: Exam: XR Chest Exam date and time: 11/05/2024 10:38 PM Age: 64 years old Clinical indication: Pain; Other: Tachycardia; Chest pressure; Additional info: Tachycardic, concern for sepsis, chest pain TECHNIQUE: Imaging protocol: Radiologic exam of the chest. Views: 1 view. COMPARISON: CR (CHEST, ) 10/29/2024 10:30 PM FINDINGS: Lungs: Unremarkable. No consolidation. Pleural spaces: Unremarkable. No pleural effusion. No pneumothorax. Heart/Mediastinum: Unremarkable. No cardiomegaly. Bones/joints: Unremarkable. XR/XR chest 1V portable [id number] IMPRESSION: No acute findings.
[2024-11-05 23:03] VITALS: BP 157/89; PULSE 68; RESP 16; O2SAT 99
[2024-11-05 23:20] LABS: Basophils % 0.8 %; Eosinophils # 0.4 10^3/uL (0.0-0.8); Lymphocytes # 1.1 10^3/uL (0.8-4.8); Lymphocytes % 22.5 %; Mean Corpuscular HGB Conc 32.6 g/dL (30-55); Mean Corpuscular Volume 85.8 fl (82-101); Mean Platelet Volume 9.1 fL (7.4-10.4); Monocytes # 0.5 10^3/uL (0.2-0.9); Monocytes % 10.6 %; Neutrophils # 2.91 10^3/uL (1.8-7.7); Neutrophils % 57.9 %; Nucleated Red Blood Cells % 0 %; Platelet Count 337 10^3/cmm (157-399); Red Blood Count 4.43 10^6/uL (3.85-5.65); Red Cell Distribution Width 13.9 % (12.1-15.1); White Blood Count 5.02 10^3/uL (3.29-11.43)
[2024-11-05 23:26] LABS: Bacteria Urine None Seen /hpf; Hyaline Casts Urine 0-4 /lpf; RBC Urine 0-2 /hpf (0-2); Squamous Epithelial Cell Urine 0-5 /hpf (0-5); WBC Urine 0-5 /hpf (0-5)
[2024-11-05 23:30] LABS: Add Urine Microscopic? YES; Bilirubin Urine Negative (Negative); Blood Urine Negative (Negative); Glucose Urine UA Negative (Normal); Ketones Urine Trace (Negative); Leukocyte Esterase Urine Negative (Negative); Nitrate Urine Negative (Negative); Protein Urine Negative (Negative); Urine Appearance Clear (CLEAR); Urine Color Yellow (Yellow); pH Urine 6.5 (5-7)
[2024-11-05 23:31] LABS: Amphetamines Screen Urine Negative (Negative); Barbiturates Screen Urine Negative (Negative); Benzodiazepines Screen Urine Negative (Negative); Cocaine Screen Urine Negative (Negative); Opiate Screen Urine Negative (Negative); PCP Screen Urine Negative (Negative); THC Screen Urine Negative (Negative)
[2024-11-05 23:40] LABS: Lactic Sepsis W/Reflex 1.5 mmol/L (0.5-2.2)
[2024-11-05 23:41] LABS: Troponin(5th) Baseline 24 ng/L (0-15)
--- NOTE | 2024-11-05 23:43 | ED_ITS ---
HPI - General Adult 2 General: Chief complaint: General Medical Stated complaint: LEG PAIN Time Seen by Provider: 11/05/24 22:06 History of Present Illness: Patient is a 64-year-old male who presents emergency department with multiple complaints via EMS. He complains of chest pain, lightheadedness, leg swelling, leg pain, frequent falls, general weakness, and is fearful that he cannot care for himself adequately. He would like to be admitted. He has a history of schizophrenia, seizures, diabetes, high blood pressure, and states that he has been compliant with his home medications. He was recently admitted to the psychiatric unit for suicidality. He describes his chest pain as pressure-like, 2 of 10, intermittent, and not necessarily worse with exertion. He complains of left leg swelling and redness. He has been prescribed Keflex but he is not sure why. Related Data Home Medications ?Medication ?Instructions ?Recorded ?Confirmed simvastatin 40 mg tablet 40 mg PO BEDTIME 02/19/24 cetirizine 10 mg tablet 10 mg PO DAILY 05/05/2410/12 sodium chloride 1 gram tablet 1,000 mg PO BID 10/17/24 10/29/24 losartan 25 mg tablet 25 mg PO DAILY 10/29/2410/12 paliperidone palmitate 234 mg/1.5 234 mg IM Q30D 10/2910/29/24 mL intramuscular syringe (Invega Sustenna) lorazepam 0.5 mg tablet 0.25 mg PO BID 11/05/2410/13 Previous Rx's ?Medication ?Instructions ?Recorded metformin 500 mg tablet 500 mg PO BIDWM 30 days #60 tabs 09/22/24 metoprolol tartrate 25 mg tablet 25 mg PO BID 30 days #60 tabs 09/22/24 divalproex 500 mg tablet,extended 500 mg PO BID #60 ta bs 11/05/24 release 24 hr (Depakote ER) risperidone 1 mg tablet (Risperdal) 1 mg PO BID #60 ta bs 11/05/24 Allergies Allergy/AdvReac Type Severity Reaction Status Date / Time lithium Allergy ADR-Nausea Verified 10/29/24 14:06 oxycodone (From OxyContin) Allergy nausea Verified 10/29/24 14:06 Penicillins Allergy ALGY-Difficulty Verified 10/29/24 14:06 Breathing PFSH ED 2 PFSH: Medical History Schizoaffective disorder, bipolar type Seasonal allergies History of Parkinson's disease Hyperlipidemia Hypertension Psychiatric care Family History Father Cancer stomach Mother Cancer ovarian Social History Smoking and tobacco/nicotine status: former use of tobacco/nicotine Alcohol intake: current Alcohol intake frequency: holidays/special occasions only Substance/Drug Use: former Adopted: No Caregiver/support person: No Lives independently: Yes Household members: none Housing: Apartment Marital status: / Number of children: 1 Number of grandchildren: 2 Highest education level completed: 8th Grade Current occupational status: unemployed Pets and animals: No Leisure activites: exercise and clubs Sexually active: No Do you think of yourself as: Straight/Heterosexual Current gender identity: Male Janelle/Sabianist: Hinduism Special janelle needs: No Agree to transfusion: Yes Physical Exam 2 Const: COMMON NORMALS: no acute distress, patient oriented x3 and alert HENMT: COMMON NORMALS: normocephalic and atraumatic HEAD & SCALP: n ormocephalic and atraumatic Eye: COMMON NORMALS: Equal, round and reactive pupils present, EOMs intact bilaterally and no scleral icterus PUPIL: Yes Equal, round and reactive pupils present Resp: COMMON NORMALS: normal respiratory effort and No retractions Cardio: COMMON NORMALS: regular rhythm and No murmurs present (Cardio) R HYTHM: regular rhythm OTHER: Borderline tachycardic GI: COMMON NORMALS: Normal to inspection, nondistended, normoactive bowel sounds present, Soft to palpation and non-tender PALPATION: Yes Soft to palpation Extremity: OTHER: Swelling and warmth and mild erythema of the left lower leg from the foot to above the mid tibial level. Mild pitting edema of the bilateral legs. Neuro: COMMON NORMALS: patient oriented x3 SENSORIUM/ORIENTATION: Yes alert Psych: OTHER: No SI or HI. No active hallucinations or delusions. Admits history of schizophrenia. Appears mildly paranoid. Course 2 Vital Signs: Vital signs: Vital Signs Temperature 98.1 F 11/05/24 21:59 Pulse Rate 70 11/06/24 00:00 Respiratory Rate 16 11/06/24 00:00 Blood Pressure 152/88 11/06/24 00:00 Pulse Oximetry 98 11/06/24 00:00 Oxygen Delivery Me thod Room Air 11/06/24 00:00 MDM - General Adult Medical Decision Making In summary, patient is a 64-year-old male with significant underlying psychiatric disease seen for multiple possible organic processes. On arrival he is tachycardic and has a warm, red lower leg which I believe may represent failed outpatient antibiotic therapy despite normal lactic acid and normal white blood cell count. Blood pressures 200 on arrival. Without intervention, pressures dropped to 157/89. He has a prescription for Keflex in his bag which he cannot tell me exactly why he is taking it. I suspect it may have been for left lower leg cellulitis, and feel that his normal white blood cell count may be a result of partial treatment of cellulitis. I do not suspect DVT. Additionally, labs show hyponatremia of 125. Patient describes increased weakness and I feel this may represent symptomatic hyponatremia. It is difficult to ascertain however because I do not know his normal baseline physical abilities and with his multiple psychiatric diagnoses it is hard to gauge whether he has a clear understanding or ability to communicate subtle changes in mentation and general strength. As such, he will be admitted to the hospitalist service for correction of hyponatremia and consideration for therapy for his warm, mildly erythematous left lower leg which may represent cellulitis Lab Data 11/05/24 22:51 11/05/24 22:51 Radiology Impressions Chest X-Ray 11/05/24 22:34 IMPRESSION: No acute findings. Laboratory Results WBC 5.02 10^3/uL (3.29-11.43) 11/05/24 22:51 RBC 4.43 10^6/uL (3.85-5.65) 11/05/24 22:51 Hgb 12.40 g/dL (11.27-16.99) 11/05/24 22:51 Hct 38.0 % (37-53) 11/05/24 22:51 MCV 85.8 fl (82-101) 11/05/24 22:51 MCH 28.0 pg (27-33) 11/05/24 22:51 MCHC 32.6 g/dL (30-55) 11/05/24 22:51 RDW 13.9 % (12.1-15.1) 11/05/24 22:51 Plt Count 337 10^3/cmm (157-399) 11/05/24 22:51 MPV 9.1 fL (7.4-10.4) 11/05/24 22:51 Neut % (Auto) 57.9 % 11/05/24 22:51 Lymph % (Auto) 22.5 % 11/05/24 22:51 [place] % (Auto) 10.6 % 11/05/24 22:51 Eos % (Auto) 8.0 % 11/05/24 22:51 Baso % (Auto) 0.8 % 11/05/24: Neut # (Auto) 2.91 10^3/uL (1.8-7.7) 11/05/24: Lymph # (Auto) 1.1 10^3/uL (0.8-4.8) 11/05/24 22:51 [place] # (Auto) 0.5 10^3/uL (0.2-0.9) 11/05/24 22:51 Eos # (Auto) 0.4 10^3/uL (0.0-0.8) 11/05/24:51 Baso # (Auto) 0.0 10^3/uL (0.0-0.1) 11/05/24: Nucleated RBC % (auto) 0 % 11/05/24: Nucleated RBCs # 0.0 /100WBC 11/05/24 22:51 Sodium 125 mmol/L (136-145) L 11/05/24 22: Potassium 3.9 mmol/L (3.5-5.1) 11/05/24 22: Chloride 86 mmol/L (98-107) L 11/05/24 22:51 Carbon Dioxide 26 mmol/L (22-29) 11/05/24 22:51 Anion Gap 16.9 (5-19) 11/05/24 22:51 BUN 10 mg/dL (8-23) 11/05/24 22:51 Creatinine 0.6 mg/dL (0.7-1.2) L 11/05/24 22:51 GFR Calculation 136.5 mL/min (90-130) H 11/05/24 22:51 Glucose 102 mg/dL (65-115) 11/05/24 22:51 Calculated Osmolality 259 mOsm/kg (285-295) L 11/05/24 22:51 Lactic Acid 1.5 mmol/L (0.5-2.2) 11/05/24 22:51 Calcium 8.8 mg/dL (8.5-10.5) 11/05/24 22:51 Total Bilirubin 0.8 mg/dL (0.15-1.2) 11/05/24 22:51 AST 14 U/L (0-40) 11/05/24 22:51 ALT 10 U/L (0-41) 11/05/24 22:51 Alkaline Phosphatase 88 U/L (40-130) 11/05/24 22:51 Troponin T Baseline 24 ng/L (0-15) H 11/05/24 22:51 Troponin T 120 Minute 20.99 ng/L (0-15) H 11/06/24 01:10 Delta Troponin T -3.01 ABS# (0-10) L 11/06/24 01:10 NT-Pro-B Natriuret Pep 174 pg/mL (0-125) H 11/05/24 22:51 Total Protein 6.3 g/dL (6.6-8.7) L 11/05/24 22:51 Albumin 4.1 g/dL (3.5-5.2) 11/05/24 22:51 Globulin 2.2 g/dL (1.3-4.6) 11/05/24 22:51 Urine Color Yellow (Yellow) 11/05/24 23:10 Urine Appearance Clear (CLEAR) 11/05/24 23:10 Urine pH 6.5 (5-7) 11/05/24 23:10 Ur Specific [place] 1.010 (1.005-1.030) 11/05/24 23:10 Urine Protein Negative (Negative) 11/05/24 23:10 Urine Glucose (UA) Negative (Normal) 11/05/24 23:10 Urine Ketones Trace (Negative) 11/05/24 23:10 Urine Blood Negative (Negative) 11/05/24 23:10 Urine Nitrate Negative (Negative) 11/05/24 23:10 Urine Bilirubin Negative (Negative) 11/05/24 23:10 Urine Urobilinogen 2.0 mg/dL (Negative) H 11/05/24 23:10 Ur Leukocyte Esterase Negative (Negative) 11/05/24 23:10 Urine RBC 0-2 /hpf (0-2) 11/05/24 23:10 Urine WBC 0-5 /hpf (0-5) 11/05/24 23:10 Ur Squamous Epith Cells 0-5 /hpf (0-5) 11/05/24 23:10 Amorphous Sediment Not Reportable 11/05/24 23:10 Urine Bacteria None seen /hpf (NONE) 11/05/24 23:10 Hyaline Casts 0-4 /lpf H 11/05/24 23:10 Urine Opiates Screen Negative ng/mL (Negative) 11/05/24 23:10 Ur Barbiturates Screen Negative ng/mL (Negative) 11/05/24 23:10 Ur Phencyclidine Scrn Negative ng/mL (Negative) 11/05/24 23:10 Ur Amphetamines Screen Negative ng/mL (Negative) 11/05/24 23:10 U Benzodiazepines Scrn Negative ng/mL (Negative) 11/05/24 23:10 Urine Cocaine Screen Negative ng/mL (Negative) 11/05/24 23:10 U Marijuana (THC) Screen Negative ng/mL (Negative) 11/05/24 23:10 Ethyl Alcohol < 10 mg/dL (0-10) 11/05/24 22:51 All radiology interpretation(s) finalized by discharge EKG Data EKG 1: Interpretation: Time?2205?sinus tachycardia with infrequent PVCs, rate of 105, no ST segment elevation or depression, no T wave inversions, intervals within normal limits. QTc = 403 Computer generated interpretation: Chest X-Ray 11/05/24 22:34 IMPRESSION: No acute findings. Discharge Plan Discharge Patient Disposition: Admitted As Inpatient Clinical Impression: Acute hyponatremia Condition: Stable Coding Level of Care Code ED Marketing Intern for Brien Loomis
[2024-11-05 23:51] LABS: Alanine Aminotransferase 10 U/L (0-41); Albumin Level 4.1 g/dL (3.5-5.2); Alkaline Phosphatase 88 U/L (40-130); Anion Gap 16.9 (5-19); Aspartate Amino Transferase 14 U/L (0-40); Blood Urea Nitrogen 10 mg/dL (8-23); Calcium 8.8 mg/dL (8.5-10.5); Carbon Dioxide 26 mmol/L (22-29); Chloride 86 mmol/L (98-107); Creatinine Clr Calc Pharmacy 171.7329; Globulin 2.2 g/dL (1.3-4.6); Glomerular Filtration Rate 136.5 mL/min (90-130); Glucose 102 mg/dL (65-115); NT Pro B Type Natriuretic Pept 174 pg/mL (0-125); Osmolality Calculated 259 mOsm/kg (285-295); Potassium 3.9 mmol/L (3.5-5.1); Sodium 125 mmol/L (136-145); Total Bilirubin 0.8 mg/dL (0.15-1.2); Total Protein 6.3 g/dL (6.6-8.7)
[2024-11-05 23:52] LABS: Alcohol Level < 10 mg/dL (0-10)
[2024-11-06] VITALS (14 sets, daily range): BP systolic 113–170; BP diastolic 67–97; PULSE 70–102; RESP 16–17; TEMP 36.8–36.9; O2SAT 94–99
[2024-11-06 01:38] LABS: Troponin 5 2HR 20.99 ng/L (0-15)
[2024-11-06 01:40] LABS: Troponin 5 2HR Delta -3.01 ABS# (0-10)
[2024-11-06 03:48] LABS: Urine Random Sodium 38 mmol/L
--- NOTE | 2024-11-06 04:39 | PM.HP ---
Providers/Chief Complaint Admitting Physician: Calin Garibay MD Primary Care Provider: Shemar Arcos MD Chief Complaint: LEG PAIN History of Present Illness Benedicto Amaral is a 64 year old male with schizophrenia on paliperidone and Risperdal presents with weakness and falls as well as left leg pain. Patient reports that he fell backwards while doing laundry about 2 to 3 weeks ago and since then has noted he is off balance. He does not have nausea or hypersomnolence. Patient states he cannot sleep well at night because he is lonely and his TV does not work. He has had mild headaches but nothing serious. He has blurry vision due to cataracts and needing new glasses. Patient states he only has rare alcohol i.e. 1 drink a month. He quit smoking about 10 years ago does not use marijuana or any street drugs. Patient states at age 21 going to 22 he had episode with palpitations chest pain and was told he had a coronary arrest but his story is odd because he states he was seen in a doctor's clinic and given a shot as well as some Inderal but did not have any other treatment. States he was told to go home and sleep. Patient's father of stomach cancer and mother of ovarian cancer of some unknown other cancer. Patient admits to diabetes and Parkinson's. He has been on salt tabs in the past and thought he was still taking them but they are not included in his medicine bag. He also appears no longer to be on the lorazepam. Patient states he is getting his paliperidone shots (Invega) Review of Systems Narrative: General no fevers chills cardiovascular no chest pain or palpitations Respiratory no shortness of breath or cough Medications/Allergies Home Medications ?Medication ?Instructions ?Recorded ?Confirmed ?Last Taken ?Type simvastatin 40 mg tablet 40 mg PO BEDTIME 02/19/24 10/29/24 08/27/24 History cetirizine 10 mg tablet 10 mg PO DAILY 05/05/24 10/29/24 08/28/24 History metformin 500 mg tablet 500 mg PO BIDWM 30 days #60 tabs 09/22/24 10/29/24 Unknown Rx metoprolol tartrate 25 mg tablet 25 mg PO BID 30 days #60 tabs 09/22/24 10/29/24 Unknown Rx sodium chloride 1 gram tablet 1,000 mg PO BID 10/17/24 10/29/24 Unknown History losartan 25 mg tablet 25 mg PO DAILY 10/29/24 10/29/24 Unknown History paliperidone palmitate 234 mg/1.5 234 mg IM Q30D 10/29/24 10/29/24 Unknown History mL intramuscular syringe (Invega Sustenna) divalproex 500 mg tablet,extended 500 mg PO BID #60 tabs 11/05/24 11/05/24 Unknown Rx release 24 hr (Depakote ER) lorazepam 0.5 mg tablet 0.25 mg PO BID 11/05/24 11/05/24 Unknown History risperidone 1 mg tablet (Risperdal) 1 mg PO BID #60 tabs 11/05/24 11/05/24 Unknown Rx Allergies Allergy/AdvReac Type Severity Reaction Status Date / Time lithium Allergy ADR-Nausea Verified 10/29/24 14:06 oxycodone (From OxyContin) Allergy nausea Verified 10/29/24 14:06 Penicillins Allergy ALGY-Difficulty Verified 10/29/24 14:06 Breathing PFSH Acute PFSH: Medical History (Updated 11/06/24 @ 04:48 by Calin Garibay MD) Cellulitis and abscess of left leg Chronic hyponatremia Schizoaffective disorder, bipolar type Seasonal allergies History of Parkinson's disease Hyperlipidemia Hypertension Psychiatric care Family History Father Cancer stomach Mother Cancer ovarian Social History (Updated 11/06/24 @ 04:45 by Calin Garibay MD) Smoking and tobacco/nicotine status: former use of tobacco/nicotine Quit status (tobacco/nicotine): has quit using Year quit tobacco: Roughly 2014 Alcohol intake: current Alcohol intake frequency: holidays/special occasions only Substance/Drug Use: former Additional social history: Patient states he lives alone he would like full CODE STATUS as discussed 11/06/2024. He states that also if he saw Bear he would want to go forward to Bear Adopted: No Caregiver/support person: No Lives independently: Yes Household members: none Housing: Apartment Marital status: / Number of children: 1 Number of grandchildren: 2 Highest education level completed: 8th Grade Current occupational status: unemployed Pets and animals: No Leisure activites: exercise and clubs Sexually active: No Do you think of yourself as: Straight/Heterosexual Current gender identity: Male Janelle/Cheondoism: Jew Special janelle needs: No Agree to transfusion: Yes Vitals/I&O/Wt Last Vital Signs Temp 98.1 F 11/05/24 21:59 Pulse 75 11/06/24 03:00 Resp 16 11/06/24 03:00 BP 130/67 11/06/24 03:00 Pulse Ox 97 11/06/24 03:00 O2 Del Method Room Air 11/06/24 03:00 Weight last 48 hrs Weight 117.934 kg Physical Exam Narrative: General well-developed well-nourished tall male in no acute cardiopulmonary stress CV regular rate and rhythm Lungs clear to auscultation bilaterally Abdomen positive bowel sounds soft obese nontender Calves 1+ to 2 bilateral pretibial edema Mood and affect facial expressions are flat and patient speaks in a yelling voice which just appears to be his affect. He is polite and cooperative with some delay in answering questions Data 11/05/24 22:51 11/05/24 22:51 Micro: Microbiology 11/05/24 22:51 Blood Culture - Preliminary Blood SPECIMEN COLLECTED 11/05/24 22:57 Blood Culture - Preliminary Blood SPECIMEN COLLECTED A&P Assessment and plan (1) Acute hyponatremia: I think this is worsened because the patient has run out of his salt tabs. He now is symptomatic with imbalance and appears to be emotional. The emotional lability may be his baseline. Will give 100 cc of hypertonic saline and resume salt tabs. 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 Judging from his affect and emotional lability I do not think it is a good idea to stop those medications (3) Schizoaffective disorder, bipolar type: Continue antipsychotics (4) Cellulitis and abscess of left leg: There is no abscess just cellulitis. Will treat with cefazolin as he is partially treated with Keflex 5 doses from home and seems to be showing some improvement. Patient was only given 12 tablets of cefazolin which is unclear to me what sort of antibiotic course that would be. He has 7 pills left and when he discharges he can resume those PDMP PDMP Reviewed: Not Reviewed Attestations Medical Necessity Statement*: Patient is admitted to hospital hyponatremia and cellulitis and stay is anticipated to cross greater than 2 midnights Coding Level of Care Code Acute Code for g Fwd Diagnoses Acute hyponatremia E87.1 Chronic hyponatremia E87.1 Schizoaffective disorder, bipolar type F25.0 Cellulitis and abscess of left leg L03.116; L02.416
[2024-11-06 04:48] LABS: Troponin 5 6HR 20.59 ng/L (0-15)
[2024-11-06 04:49] LABS: Sodium 126 mmol/L (136-145); Troponin 5 6HR Delta -3.41 ng/L (0-12)
[2024-11-06] MEDS: ceFAZolin 2,000 mg SDV 2000 MG IVP (07:24)
--- NOTE | 2024-11-06 08:14 | PC.PHAR ---
Pt unable to verify current med list. Verified with [facility] with last fill date and day supply. Newest dosage on Depakote ER 500mg is 1 tablet bid 11/05/24-reduced from 2 tablets bid.
[2024-11-06] MEDS: sodium chloride 1 gm Tablet PO ×2 (09:31→17:17)
[2024-11-06] MEDS: metoprolol tartrate 25 mg Tablet PO ×2 (09:31→17:17)
[2024-11-06] MEDS: metformin 500 mg Tablet PO ×2 (09:31→17:17)
[2024-11-06] MEDS: risperiDONE 1 mg Tablet PO ×2 (09:31→17:17)
[2024-11-06] MEDS: divalproex ER 500 mg Tablet (24H) PO ×2 (09:31→17:17)
[2024-11-06] MEDS: cetirizine 10 mg Tablet PO (09:31)
[2024-11-06] MEDS: enoxaparin 40 mg/0.4 mL Syringe SUBCUT (09:34)
[2024-11-06 09:53] LABS: Anion Gap 14.1 (5-19); Blood Urea Nitrogen 7 mg/dL (8-23); Calcium 8.6 mg/dL (8.5-10.5); Carbon Dioxide 27 mmol/L (22-29); Chloride 92 mmol/L (98-107); Glomerular Filtration Rate 168.5 mL/min (90-130); Glucose 123 mg/dL (65-115); Osmolality Calculated 267 mOsm/kg (285-295); Potassium 4.1 mmol/L (3.5-5.1); Sodium 129 mmol/L (136-145)
--- NOTE | 2024-11-06 14:54 | PM.MISC ---
Miscellaneous Note Purpose of Documentation: Overnight labs and H&P reviewed. Patient received hypertonic saline overnight. Currently sodium is improved at 129. No further hypertonic saline at this time as sodium is corrected by 4 points. Will continue with oral salt supplementation and continue to trend sodium every 6 hours.
[2024-11-06 15:25] LABS: Anion Gap 17.2 (5-19); Blood Urea Nitrogen 9 mg/dL (8-23); Calcium 8.7 mg/dL (8.5-10.5); Carbon Dioxide 23 mmol/L (22-29); Chloride 93 mmol/L (98-107); Glomerular Filtration Rate 168.5 mL/min (90-130); Glucose 91 mg/dL (65-115); Osmolality Calculated 266 mOsm/kg (285-295); Potassium 4.2 mmol/L (3.5-5.1); Sodium 129 mmol/L (136-145)
[2024-11-06] MEDS: cephALEXin 500 mg Capsule PO (17:17)
[2024-11-06] MEDS: ATORVASTATIN 10 MG TABLET 20 MG PO (20:48)
[2024-11-06] MEDS: acetaminophen 500 mg Tablet 1000 MG PO (22:26)
[2024-11-07 04:00] VITALS: BP 137/78; PULSE 85; RESP 16; TEMP 36.9; O2SAT 95
[2024-11-07 05:43] VITALS: PULSE 105
--- NOTE | 2024-11-07 05:49 | PC.NURSE ---
Lab Draw Refusal Patient has refused blood draws multiple times this shift. Patient states I don't want to be stuck anymore, it hurts. I'll let you do it if you start an IV. This nurse offered to start patient IV, but patient states I only want an IV if I'm asleep while you do it. This nurse explained to patient that patient would need to be awake for IV placement due to safety concerns. This nurse explained that if an IV was attempted on patient while sleeping, that the patient may wake up suddenly and move, causing injury to patient or staff. Patient verbalized understanding. This nurse spoke with lab staff. Lab agrees to attempt patient draw again around 0700.
[2024-11-07 07:46] VITALS: BP 134/86; PULSE 90; RESP 18; TEMP 36.5; O2SAT 95
[2024-11-07] MEDS: metoprolol tartrate 25 mg Tablet PO (07:47)
[2024-11-07] MEDS: sodium chloride 1 gm Tablet PO (07:47)
[2024-11-07] MEDS: losartan 50 mg Tablet 25 MG PO (07:47)
[2024-11-07] MEDS: cetirizine 10 mg Tablet PO (07:48)
[2024-11-07] MEDS: risperiDONE 1 mg Tablet PO (07:48)
[2024-11-07] MEDS: cephALEXin 500 mg Capsule PO (07:48)
[2024-11-07] MEDS: metformin 500 mg Tablet PO (07:48)
[2024-11-07] MEDS: divalproex ER 500 mg Tablet (24H) PO (07:48)
[2024-11-07 12:26] VITALS: BP 114/70; PULSE 92; RESP 17; TEMP 36.6; O2SAT 95
--- NOTE | 2024-11-07 12:40 | USCV_ITS ---
Benedicto Amaral Age: 64 Gender: M : 1960 Exam Date: 11/07/2024 13:04 Ordering Phys: Floresita Pickard MD Technologist: ARNOLD Exam Location: [facility] [place] Indication: LE Redness HISTORY: LE Redness PROCEDURES: Venous duplex imaging was performed in only the left lower extremity. The following venous structures were evaluated: common femoral vein, profunda vein, proximal portion of the greater saphenous vein, superficial femoral vein, and the popliteal vein. In addition, the posterior tibial and peroneal trunk were evaluated. Serial compression, augmentation maneuvers, and spectral Doppler flow evaluation were performed. FINDINGS: Normal 2-D Doppler and augmentation and compressibility throughout the lower extremity venous structures. Additional imaging through the proximal calf veins also reveals no thrombus. Limited evaluation of the greater saphenous vein is patent with no thrombus. CONCLUSIONS No DVT bilateral lower extremities. Dr. Sapphire Lowe DO (Electronically Signed) Final Date: 07 November 2024 14:10 S
[2024-11-07 13:17] VITALS: BP 114/70; PULSE 92; RESP 16; TEMP 36.6; O2SAT 95
--- NOTE | 2024-11-07 15:11 | PM.DCS ---
Discharge Providers Date of Admission: 11/06/24 02:46 Date of Discharge: November 07, 2024 Attending Provider at Admission: Calin Garibay MD Attending Provider at Discharge: Floresita Pickard MD Primary Care Provider: Shemar Arcos MD Diagnoses at Discharge Discharge Diagnosis (1) Acute hyponatremia: Status: Acute (2) Chronic hyponatremia: Status: Acute (3) Schizoaffective disorder, bipolar type: Status: Chronic (4) Cellulitis and abscess of left leg: Status: Acute Reason for Visit Reason for Visit: LEG PAIN Hospital Course Hospital Course Benedicto Amaral is a 64 year old male with schizophrenia, on paliperidone and Risperdal, DM and parkinson's presented to the ER on 11/06 with weakness and falls as well as left leg pain. Patient reports that he fell backwards while doing laundry about 2 to 3 weeks ago and since then has noted he is off balance. He has had mild headaches but nothing serious. He has blurry vision due to cataracts and needing new glasses. He has chronic hyponatremia and was supposed to be on long-term salt supplementation however he ran out of his salt tablets recently. He presented with acute on chronic hyponatremia, likely related to SIADH from his psychiatry medications. Given his affect lability, the medications were not discontinued. Patient's sodium upon arrival was at 125. He received hypertonic saline 100 cc and also was restarted on oral salt supplementation. His sodium improved to 129 by the afternoon of November 06, 2024, however thereafter patient refused any further lab draws to recheck his sodium numbers. Additionally he request any further IV placements for fluids or hypertonic saline. Patient was noted to be ambulating with assistance of a walker during the course of this admission. He was assessed by physical therapy and Occupational Therapy during the course of his admission. He was also noted to have lower extremity edema. He stated he was recently diagnosed with cellulitis for which he had been started on cephalexin, this is continued at discharge. BNP was only at 174 and likely CHF. Chest x-ray was without acute findings. Lower extremity Doppler completed today was without any signs of DVT. Patient is being discharged today in his baseline [facility] status [facility]. Recommended to recheck sodium level in 2 to 3 days if patient permits. Physical Exam Narrative: General: No acute distress, AO x3 HEENT: PERRLA, pupils bilaterally equal and reactive, pallors not present Chest: Normal vesicular breath sounds, no added sounds, equal good air entry bilaterally CVS: S1-S2 regular, no murmurs, no tachycardia, no gallops, no rubs Abdomen: Soft, nontender, no organomegaly, bowel sounds present Neuro: No focal deficits, no facial deformity, AO x3, power 5/5 in all limbs Discharge Data Studies Completed and Pending Completed Studies During Hospitalization Category Date Time Status XR chest 1V portable [id number] Stat Exams 11/05/24 22:34 [place] [id number] Stat Ultrasound 11/07/24 12:40 Completed Pending at discharge Category Date Time Status Blood Culture Stat Lab 11/05/24 22:51 Results Radiology Impressions Chest X-Ray 11/05/24 22:34 IMPRESSION: No acute findings. Laboratory Results WBC 5.02 10^3/uL (3.29-11.43) 11/05/24 22:51 RBC 4.43 10^6/uL (3.85-5.65) 11/05/24 22:51 Hgb 12.40 g/dL (11.27-16.99) 11/05/24 22:51 Hct 38.0 % (37-53) 11/05/24 22:51 MCV 85.8 fl (82-101) 11/05/24 22:51 MCH 28.0 pg (27-33) 11/05/24 22:51 MCHC 32.6 g/dL (30-55) 11/05/24 22:51 RDW 13.9 % (12.1-15.1) 11/05/24 22:51 Plt Count 337 10^3/cmm (157-399) 11/05/24 22:51 MPV 9.1 fL (7.4-10.4) 11/05/24 22:51 Neut % (Auto) 57.9 % 11/05/24 22:51 Lymph % (Auto) 22.5 % 11/05/24 22:51 [place] % (Auto) 10.6 % 11/05/24 22:51 Eos % (Auto) 8.0 % 11/05/24 22:51 Baso % (Auto) 0.8 % 11/05/24 22:51 Neut # (Auto) 2.91 10^3/uL (1.8-7.7) 11/05/24 22:51 Lymph # (Auto) 1.1 10^3/uL (0.8-4.8) 11/05/24 22:51 [place] # (Auto) 0.5 10^3/uL (0.2-0.9) 11/05/24 22:51 Eos # (Auto) 0.4 10^3/uL (0.0-0.8) 11/05/24 22:51 Baso # (Auto) 0.0 10^3/uL (0.0-0.1) 11/05/24 22:51 Nucleated RBC % (auto) 0 % 11/05/24 22:51 Nucleated RBCs # 0.0 /100WBC 11/05/24 22:51 Sodium 129 mmol/L (136-145) L 11/06/24 14:55 Potassium 4.2 mmol/L (3.5-5.1) 11/06/24 14:55 Chloride 93 mmol/L (98-107) L 11/06/24 14:55 Carbon Dioxide 23 mmol/L (22-29) 11/06/24 14:55 Anion Gap 17.2 (5-19) 11/06/24 14:55 BUN 9 mg/dL (8-23) 11/06/24 14:55 Creatinine 0.5 mg/dL (0.7-1.2) L 11/06/24 14:55 GFR Calculation 168.5 mL/min (90-130) H 11/06/24 14:55 Glucose 91 mg/dL (65-115) 11/06/24 14:55 Calculated Osmolality 266 mOsm/kg (285-295) L 11/06/24 14:55 Lactic Acid 1.5 mmol/L (0.5-2.2) 11/05/24 22:51 Calcium 8.7 mg/dL (8.5-10.5) 11/06/24 14:55 Total Bilirubin 0.8 mg/dL (0.15-1.2) 11/05/24 22:51 AST 14 U/L (0-40) 11/05/24 22:51 ALT 10 U/L (0-41) 11/05/24 22:51 Alkaline Phosphatase 88 U/L (40-130) 11/05/24 22:51 Troponin T Baseline 24 ng/L (0-15) H 11/05/24 22:51 Troponin T 120 Minute 20.99 ng/L (0-15) H 11/06/24 01:10 Delta Troponin T -3.01 ABS# (0-10) L 11/06/24 01:10 Troponin T Hi Sens 6Hr 20.59 ng/L (0-15) H 11/06/24 04:24 Troponin T Hi Sens 6Hr Delta -3.41 ng/L (0-12) L 11/06/24 04:24 NT-Pro-B Natriuret Pep 174 pg/mL (0-125) H 11/05/24 22:51 Total Protein 6.3 g/dL (6.6-8.7) L 11/05/24 22:51 Albumin 4.1 g/dL (3.5-5.2) 11/05/24 22:51 Globulin 2.2 g/dL (1.3-4.6) 11/05/24 22:51 Urine Color Yellow (Yellow) 11/05/24 23:10 Urine Appearance Clear (CLEAR) 11/05/24 23:10 Urine pH 6.5 (5-7) 11/05/24 23:10 Ur Specific [place] 1.010 (1.005-1.030) 11/05/24 23:10 Urine Protein Negative (Negative) 11/05/24 23:10 Urine Glucose (UA) Negative (Normal) 11/05/24 23:10 Urine Ketones Trace (Negative) 11/05/24 23:10 Urine Blood Negative (Negative) 11/05/24 23:10 Urine Nitrate Negative (Negative) 11/05/24 23:10 Urine Bilirubin Negative (Negative) 11/05/24 23:10 Urine Urobilinogen 2.0 mg/dL (Negative) H 11/05/24 23:10 Ur Leukocyte Esterase Negative (Negative) 11/05/24 23:10 Urine RBC 0-2 /hpf (0-2) 11/05/24 23:10 Urine WBC 0-5 /hpf (0-5) 11/05/24 23:10 Ur Squamous Epith Cells 0-5 /hpf (0-5) 11/05/24 23:10 Amorphous Sediment Not Reportable 11/05/24 23:10 Urine Bacteria None seen /hpf (NONE) 11/05/24 23:10 Hyaline Casts 0-4 /lpf H 11/05/24 23:10 Ur Random Sodium 38 mmol/L 11/05/24 23:10 Urine Opiates Screen Negative ng/mL (Negative) 11/05/24 23:10 Ur Barbiturates Screen Negative ng/mL (Negative) 11/05/24 23:10 Ur Phencyclidine Scrn Negative ng/mL (Negative) 11/05/24 23:10 Ur Amphetamines Screen Negative ng/mL (Negative) 11/05/24 23:10 U Benzodiazepines Scrn Negative ng/mL (Negative) 11/05/24 23:10 Urine Cocaine Screen Negative ng/mL (Negative) 11/05/24 23:10 U Marijuana (THC) Screen Negative ng/mL (Negative) 11/05/24 23:10 Ethyl Alcohol < 10 mg/dL (0-10) 11/05/24 22:51 Vitals Last Vital Signs Temp 98 F 11/07/24 13:17 Pulse 92 11/07/24 13:17 Resp 16 11/07/24 13:17 BP 114/70 11/07/24 13:17 Pulse Ox 95 11/07/24 13:17 O2 Del Method Room Air 11/07/24 04:00 Discharge Plan Discharge Patient Disposition: Xfer SNF Condition: Stable Prescriptions: Continued simvastatin 40 mg tablet 40 mg PO BEDTIME Invega Sustenna 234 mg/1.5 mL syringe 234 mg IM Q30D Rx Instructions: Injection every 28 days Received at [facility] today, 10/29/24 lorazepam 0.5 mg tablet 0.25 mg PO BID divalproex [Depakote ER] 500 mg tablet extended release 24 hr 500 mg PO BID Qty: 60 3RF risperidone [Risperdal] 1 mg tablet 1 mg PO BID Qty: 60 3RF losartan 25 mg tablet 25 mg PO DAILY cetirizine 10 mg tablet 10 mg PO DAILY metformin 500 mg Tablet 500 mg PO BIDWM 30 Days Qty: 60 1RF metoprolol tartrate 25 mg tablet 25 mg PO BID 30 Days Qty: 60 1RF haloperidol 10 mg tablet 10 mg PO BID eszopiclone 3 mg tablet 3 mg PO BEDTIME sodium chloride 1,000 mg tablet,soluble 1,000 mg PO BID paliperidone 3 mg tablet extended release 24hr 3 mg PO QAM Changed cephalexin 500 mg capsule 500 mg PO Q12H 7 Days Qty: 14 0RF Discharge Orders: Discharge Order (Routine); Ordered 11/07/24 Ordered By: Floresita Pickard Other Ambulatory Orders: DME: Walker (Order) Location: None Selected Ordered By: Floresita Pickard Sodium (Routine) Timeframe: 2 Days Facility: [facility] - Location: Lab - Main Lab Ordered By: Floresita Pickard Referrals: [facility] [Outside] Shemar Arcos MD [Primary Care Provider, Family Practice] - 4-7 days Patient Instructions: Opioid Safety, Patient Portal & [place] Instructions Discharge Attestations Time Spent in Discharge Care*: greater than 30 min Quality Metrics Clinical Quality Measures [ No reported AMI, CVA or VTE this stay] Coding Level of Care Code Acute Code for Chg Fwd Diagnoses Acute hyponatremia E87.1 Chronic hyponatremia E87.1 Schizoaffective disorder, bipolar type F25.0 Cellulitis and abscess of left leg L03.116; L02.416
== END 2024-11-07 13:17 | disposition skilled nursing facility (03) | DRG 644 ==
LOC: ER 11-06 02:52 → ER IP 11-06 03:13 → MEDSURG 11-06 06:25
PROVIDERS: Admitting Provider Internal Medicine; Emergency Provider Student in an Organized Health Care Education/Training Program; PCP Family Medicine; Visit Provider Student in an Organized Health Care Education/Training Program
DX: E22.2 Syndrome of inappropriate secretion of antidiuretic hormone (principal); L03.116 Cellulitis of left lower limb; T50.915A Adverse effect of multiple unspecified drugs, medicaments and biological substances, initial encounter; F25.0 Schizoaffective disorder, bipolar type; E11.9 Type 2 diabetes mellitus without complications; G20.A1 Parkinson's disease without dyskinesia, without mention of fluctuations; Z91.81 History of falling; H26.9 Unspecified cataract; R56.9 Unspecified convulsions; I10 Essential (primary) hypertension; E78.5 Hyperlipidemia, unspecified; R00.0 Tachycardia, unspecified; E66.9 Obesity, unspecified; Z68.30 Body mass index [BMI] 30.0-30.9, adult; Z55.5 Less than a high school diploma; Z79.84 Long term (current) use of oral hypoglycemic drugs; Z87.891 Personal history of nicotine dependence
CPT/HCPCS: 36415; 71045; 80048; 80053; 80306; 80307; 81001; 83605; 83880; 84295; 84300; 84484; 85025; 87040; 93005; 93971; 96372; 97116; 97161; 97165; 99285; J0690; J1650; J9999

== ENCOUNTER 2024-11-10 12:07 | Emergency (ER) | payer OTHER, MEDICAID, SELFPAY ==
--- OUTSIDE RECORDS SUMMARY | 2022-04-14 10:31 | XMS_ITS | Continuity of Care Document ---
Author Organization [facility] Address [address] [id number][place] [address] Phone Care Team Providers Care Paramedic Name Role Phone Anand Duncan NP Unavailable Unavailable Allergies, Adverse Reactions, Alerts Substance Reaction Status Criticality OXYCODONE HCL Active No Information lithium Nausea Active No Information PENICILLIN Active No Information Medications Medication Instructions Dosage Effective Dates (start - stop) Status Comments FLUTICASONE 50MCG NASAL SP (120) RX SHAKE LIQUID AND USE 1 TO 2 SPRAYS IN EACH NOSTRIL EVERY DAY NEEDED - Active benztropine 2 mg tablet TAKE 1 TABLET BY MOUTH 2 TIMES A DAY. - Active Invega Sustenna 234 mg/1.5 mL intramuscular syringe inject 1.5 milliliter by intramuscular route every month 234 MG - Active DISPENSE 4 WEEK FROM THE LAST SHOT. last shot was given 01/18/22. simvastatin 20 mg tablet take 1 tablet by oral route every day in the evening 20 MG - Active metoprolol tartrate 25 mg tablet take 1 tablet by oral route 2 times every day 25 MG - Active Flonase Allergy Relief 50 mcg/actuation nasal spray,suspension spray 1 - 2 spray by intranasal route every day in each nostril as needed 50-100 MCG - Active cetirizine 10 mg tablet take 1 tablet by oral route every day 10 MG - Active benzonatate 150 mg capsule take 1 capsule by oral route 3 times every day as needed for cough 150 MG - Active promethazine-DM 6.25 mg-15 mg/5 mL oral syrup take 5 milliliter by oral route every 12 hours as needed 5 milliliter - Active Procedures Procedure Date Finalize Template Workaround OFFICE/OUTPATIENT VISIT EST Vision svcs frames purchases Lens sphcyl bifocal 4.00d/.1 Lens sphcyl bifocal 4.00d/.1 FITTING OF SPECTACLES No Charge THER/PROPH/DIAG INJ, SC/IM No Charge OFFICE/OUTPATIENT VISIT EST IMMUNIZATION ADMIN TDAP VACCINE >7 IM Finalize Template Workaround OFFICE/OUTPATIENT VISIT, EST REFRACTION Eye Exam New Patient Finalize Template Workaround OFFICE/OUTPATIENT VISIT, EST THER/PROPH/DIAG INJ, SC/IM No Charge Finalize Template Workaround OFFICE/OUTPATIENT VISIT, EST OFFICE/OUTPATIENT VISIT EST GLYCOSYLATED HEMOGLOBIN TEST HG A1C LEVEL LT 7.0% Finalize Template Workaround OFFICE/OUTPATIENT VISIT, EST OFFICE/OUTPATIENT VISIT, EST OFFICE/OUTPATIENT VISIT EST THER/PROPH/DIAG INJ, SC/IM Finalize Template Workaround OFFICE/OUTPATIENT VISIT, EST OFFICE/OUTPATIENT VISIT EST X-RAY EXAM CHEST 2 VIEWS OFFICE/OUTPATIENT VISIT, EST Infectious Agent DNA Or RNA OFFICE/OUTPATIENT VISIT EST Infectious Agent DNA Or RNA COMPREHEN METABOLIC PANEL ASSAY OF PSA TOTAL ROUTINE VENIPUNCTURE CA 125 THER/PROPH/DIAG INJ, SC/IM THER/PROPH/DIAG INJ, SC/IM Finalize Template Workaround OFFICE/OUTPATIENT VISIT, EST No Charge OFFICE/OUTPATIENT VISIT, EST PSYTX PT&/FAMILY 30 MINUTES OFFICE/OUTPATIENT VISIT EST COMPLETE CBC W/AUTO DIFF WBC COMPREHEN METABOLIC PANEL GLYCOSYLATED HEMOGLOBIN TEST HG A1C LEVEL LT 7.0% HEPATITIS C AB TEST LIPID PANEL ROUTINE VENIPUNCTURE OFFICE/OUTPATIENT VISIT EST Finalize Template Workaround PSYCH DIAG EVAL W/MED SRVCS THER/PROPH/DIAG INJ, SC/IM OFFICE/OUTPATIENT VISIT EST PSYTX PT&/FAMILY 30 MINUTES OFFICE/OUTPATIENT VISIT EST Infectious Agent Antigen Detection Immun oassay NO CHARGE Patient Left / No Show THER/PROPH/DIAG INJ, SC/IM OFFICE/OUTPATIENT VISIT, EST OFFICE/OUTPATIENT VISIT EST GLYCOSYLATED HEMOGLOBIN TEST HG A1C LEVEL LT 7.0% Patient Left / No Show OFFICE/OUTPATIENT VISIT, EST THER/PROPH/DIAG INJ, SC/IM THER/PROPH/DIAG INJ, SC/IM OFFICE/OUTPATIENT VISIT, EST OFFICE/OUTPATIENT VISIT, EST Infectious Agent DNA Or RNA OFFICE/OUTPATIENT VISIT EST NO CHARGE Finalize Template Workaround OFFICE/OUTPATIENT VISIT, EST THER/PROPH/DIAG INJ, SC/IM THER/PROPH/DIAG INJ, SC/IM GLYCOSYLATED HEMOGLOBIN TEST HG A1C LEVEL LT 7.0% LIPID PANEL Vitamin D 25-OH ROUTINE VENIPUNCTURE Finalize Template Workaround OFFICE/OUTPATIENT VISIT, EST GENERAL HEALTH PANEL THER/PROPH/DIAG INJ, SC/IM OFFICE/OUTPATIENT VISIT, EST THER/PROPH/DIAG INJ, SC/IM Finalize Template Workaround OFFICE/OUTPATIENT VISIT, EST THER/PROPH/DIAG INJ, SC/IM OFFICE/OUTPATIENT VISIT, EST Paliperidone palmitate inj Paliperidone palmitate inj THER/PROPH/DIAG INJ, SC/IM Duplicate Encounter OFFICE/OUTPATIENT VISIT, EST COMPLETE CBC W/AUTO DIFF WBC COMPREHEN METABOLIC PANEL GLYCOSYLATED HEMOGLOBIN TEST HG A1C LEVEL LT 7.0% VALPROIC ACID ROUTINE VENIPUNCTURE ASSAY OF PSA TOTAL URINALYSIS AUTO W/SCOPE Paliperidone palmitate inj OFFICE/OUTPATIENT VISIT EST THER/PROPH/DIAG INJ, SC/IM THER/PROPH/DIAG INJ, SC/IM No Charge Finalize Template Workaround OFFICE/OUTPATIENT VISIT, EST (1371) THER/PROPH/DIAG INJ, IA THER/PROPH/DIAG INJ, SC/IM THER/PROPH/DIAG INJ, IA Finalize Template Workaround OFFICE/OUTPATIENT VISIT, EST (1371) THER/PROPH/DIAG INJ, SC/IM NO CHARGE Paliperidone palmitate inj Finalize Template Workaround OFFICE/OUTPATIENT VISIT, EST (1371) URINALYSIS AUTO W/O SCOPE OFFICE/OUTPATIENT VISIT, EST URINALYSIS AUTO W/O SCOPE NO CHARGE OFFICE/OUTPATIENT VISIT EST THER/PROPH/DIAG INJ, SC/IM COMPLETE CBC W/AUTO DIFF WBC COMPREHEN METABOLIC PANEL GLYCOSYLATED HEMOGLOBIN TEST HG A1C LEVEL LT 7.0% LIPID PANEL PROLACTIN-Q VALPROIC ACID ROUTINE VENIPUNCTURE OFFICE/OUTPATIENT VISIT, EST Paliperidone palmitate inj THER/PROPH/DIAG INJ, SC/IM Paliperidone palmitate inj THER/PROPH/DIAG INJ, SC/IM Patient Left / No Show OFFICE/OUTPATIENT VISIT, EST Duplicate Encounter Finalize Template Workaround OFFICE/OUTPATIENT VISIT, EST (1371) Paliperidone palmitate inj THER/PROPH/DIAG INJ, SC/IM Vitamin D 25-OH VALPROIC ACID Finalize Template Workaround PSYCH DIAG EVAL W/MED SRVCS (94) 2018 Paliperidone palmitate inj THER/PROPH/DIAG INJ, SC/IM OFFICE/OUTPATIENT VISIT EST COMPLETE CBC W/AUTO DIFF WBC COMPREHEN METABOLIC PANEL GLYCOSYLATED HEMOGLOBIN TEST HG A1C LEVEL LT 7.0% ASSAY THYROID STIM HORMONE ROUTINE VENIPUNCTURE OFFICE/OUTPATIENT VISIT, EST INFLUENZA ASSAY W/OPTIC INFLUENZA ASSAY W/OPTIC OFFICE/OUTPATIENT VISIT, EST THER/PROPH/DIAG INJ, SC/IM OFFICE/OUTPATIENT VISIT, EST Stool Culture OFFICE/OUTPATIENT VISIT, EST Patient Left / No Show Patient Left / No Show OFFICE/OUTPATIENT VISIT, EST OFFICE/OUTPATIENT VISIT, EST THER/PROPH/DIAG INJ, SC/IM OFFICE/OUTPATIENT VISIT, EST OFFICE/OUTPATIENT VISIT, EST URINALYSIS AUTO W/O SCOPE X-ray Foot, Complete 3 views- AP, Obliqu e, Lateral Patient Left / No Show OFFICE/OUTPATIENT VISIT, EST X-ray Foot, Complete 3 views- AP, Obliqu e, Lateral Community Health Worker Patient Face To Face OFFICE/OUTPATIENT VISIT, EST Community Health Worker Patient Face To Face Finalize Template Workaround Behavioral Health Consult Patient Left / No Show NO CHARGE NO CHARGE OFFICE/OUTPATIENT VISIT, NEW Advance Directives Directive Yes / No Effective Date File Name No Information Encounters Encounter Description Practice Location Reason(s) For Visit Diagnoses Date Provider Providers Copied on Encounter [facility], [id number]- [facility], [place], [place], [address], [place] tel:[phone] [facility] No Information 2 Dakota Anand. [address] [place], [address], [place]. tel:[phone] [facility], [id number] [id number]- [place], [address], [place] tel:[phone] [facility] F2 Medication Management (chief complaint)Eder izoaffective disorder (chief complaint)Gen eralized Anxiety Disorder (chief complaint) Schizoaffect filemon disorder, bipolar typeGenerali zed anxiety disorder Sep- 2 Kendrick Cabrera. [address], [place], [address], [place]. tel:[phone] Referring Provider: Deborah Marks, [address] [place], [address] . tel:[phone] [facility], [id number] [id number]- [place], [address], [place] tel:[phone] [facility]1 Encounter for fit/adjst of spectacles and contact lenses Jan- 2 Genia Aponte. [address], [place], [address], [place]. tel:[phone] Referring Provider: Fay Cormier , [address] [place], [address] . tel:[phone] [facility], [id number]- [place], [address], [place] tel:[phone] [facility] No Information Jan-0 2 No Information [facility], [id number] [place], [address], [place] tel:[phone] [facility] F2 Schizoaffect filemon disorder, bipolar type Jan- 2 Kendrick Cabrera. [address], [place], [address], [place]. tel:[phone] Referring Provider: Deborah Marks, [address] [place], [address] . tel:[phone] OFFICE/OUTPA TIENT VISIT EST [facility], [address] [id number]- [place], [address], [place] tel:[phone] [facility] Est care (chief complaint) Hypertension PrediabetesM ixed hyperlipidem iaEncounter for immunization Jan-0 2 Horacio Blackman. [address] [place], [address], [place]. tel:[phone] Referring Provider: Hiral Leonard, [address] [place], [address]. tel:[phone] [facility], [address] [id number]- [place], [address], [place] tel:[phone] Behavior[facility] F2 Medication Management (chief complaint)Eder izoaffective disorder (chief complaint)Gen eralized Anxiety Disorder (chief complaint) Schizoaffect filemon disorder, bipolar typeGenerali zed anxiety disorder 2 Kendrick Cabrera. [address], [place], [address], [place]. tel:[phone] Referring Provider: Deborah Marks, [address] [place], [address] . tel:[phone] [facility], [address] [id number]- [place], [address], [place] tel:[phone] Vision F1 blurry vision (chief complaint) Hypermetropi a, bilateralReg ular astigmatism, bilateralPre sbyopiaAge-r elated nuclear cataract, bilateral 2 Genia Aponte. [address], [place], [address], [place]. tel:[phone] Referring Provider: Fay Cormier , [address] [place], [address] . tel:[phone] [facility], [address] [id number] [place], [address], [place] tel:[phone] [facility]al [facility] F2 Medication Management (chief complaint)Eder izophrenia (chief complaint)Gen eralized Anxiety Disorder (chief complaint) Undifferenti ated schizophreni aGeneralized anxiety disorder 2 Kendrick Cabrera. [address], [place], [address], [place]. tel:[phone] Referring Provider: Deborah Marks, [address] [place], [address] . tel:[phone] [facility], [id number] [place] [address], [id number], [place] tel:[phone] Behavior[facility] F2 Schizoaffect filemon disorder, bipolar type 2 Kendrick Cabrera. [address], [place], [address], [place]. tel:[phone] Referring Provider: Deborah Marks, [address] [place], [address] . tel:[phone] [facility], [id number] [place] [address], [id number], [place] tel:[phone] Behavioral [facility] F2 Medication Management (chief complaint)Anx iety (chief complaint)und ifferentiated schizophrenia (chief complaint) Generalized anxiety disorderUndi fferentiated schizophreni a 2 Kendrick Cabrera. [address], [place], [address], [place]. tel:[phone] Referring Provider: Deborah Marks, [address] [place], [address] . tel:[phone] OFFICE/OUTPA TIENT VISIT EST [facility], [address] [id number] [place], [address], [place] tel:[phone] Behavioral [facility] F2 Hyperglycemia (chief complaint) Hyperglycemi aType 2 diabetes mellitus without complication s 2 Dakota Michel. [address] [place], [address], [place]. tel:[phone] Referring Provider: Anand Duncan, [address] [place], [address]. tel:[phone] [facility], [address] [id number] [place], [address], [place] tel:[phone] [facility] F2 Medication Management (chief complaint)Eder izophrenia (chief complaint)Gen eralized Anxiety Disorder (chief complaint) Undifferenti ated schizophreni aGeneralized Anxiety Disorder 2 Kendrick Cabrera. [address], [place], [address], [place]. tel:[phone] Referring Provider: Deborah Marks, [address] [place], [address] . tel:[phone] OFFICE/OUTPA TIENT VISIT, [facility], [address] [id number] [place], [place], [address], [place] tel:[phone] [facility] F2 EPS (chief complaint) Extrapyramid al and movement disorder 2 Dakota Michel. [address] [place], [address], [place]. tel:[phone] Referring Provider: Anand Duncan, [address] [place], [address]. tel:[phone] OFFICE/OUTPA TIENT VISIT [facility], [id number] [id number] [place], [address], [place] tel:[phone] Behavior[facility] F2 Counseling (chief complaint) Counseling and coordination of careHypergly cemiaHyponat remia 2 Dakota Michel. [address] [place], [address], [place]. tel:[phone] Referring Provider: Anand Duncan, [address] [place], [address]. tel:[phone] [facility], [address] [id number]- [place], [address], [place] tel:[phone] [facility] F2 Medication Management (chief complaint)Eder izophrenia (chief complaint)Gen eralized Anxiety Disorder (chief complaint) Undifferenti ated schizophreni aGeneralized Anxiety Disorder 2 Kendrick Cabrera. [address], [place], [address], [place]. tel:[phone] Referring Provider: Deborah Marks, [address] [place], [address] . tel:[phone] OFFICE/OUTPA TIENT VISIT [facility], [address] [id number] [place], [address], [place] tel:[phone] Behavior[facility] F2 Follow Up (chief complaint) Benign prostatic hyperplasia with urinary frequencySch izophrenia, unspecified type 2 Dakota Michel. [address] [place], [address], [place]. tel:[phone] Referring Provider: Anand Duncan, [address] [place], [address]. tel:[phone] OFFICE/OUTPA TIENT VISIT, [facility], [address] [id number] [place], [place], [address], [place] tel:[phone] [facility] Weakness (chief complaint) WeaknessChro lizet cough 2 Bina Aponte. [address], [place], [address], [place]. tel:[phone] Referring Provider: Fadi Curran, [address] [place], [address] . tel:[phone] OFFICE/OUTPA TIENT VISIT EST [facility], [id number]- [place], [address], [place] tel:[phone] Behavioral Medicine F2 Several Concerns (chief complaint) Acute coughSchizoa ffective disorder, bipolar typePrediabe tesBenign prostatic hyperplasia with urinary frequencyExt rapyramidal and movement disorderRash and other nonspecific skin eruptionHema turia, unspecified 2 Dakota Michel. [address] [place], [address], [place]. tel:[phone] Referring Provider: Anand Duncan, [address] [place], [address]. tel:[phone] [facility], [address] [id number]- [place], [address], [place] tel:[phone] [facility] F2 Schizoaffect filemon disorder, bipolar type 2 Kendrick Cabrera. [address], [place], [address], [place]. tel:[phone] Referring Provider: Deborah Marks, [address] [place], [address] . tel:[phone] [facility], [address] [id number]- [place], [address], [place] tel:[phone] Behavior[facility] F2 Medication Management (chief complaint)Eder izophrenia (chief complaint) Undifferenti ated schizophreni aGeneralized Anxiety Disorder 2 Kendrick Cabrera. [address], [place], [address], [place]. tel:[phone] Referring Provider: Deborah Marks, [address] [place], [address] . tel:[phone] [facility], [address] [id number]- [place], [address], [place] tel:[phone] [facility] No Information 2 Jo Portillo. [address], [place], [address], [place]. tel:[phone] Referring Provider: Bandar Osorio, [address] [place], [address] . tel:[phone] OFFICE/OUTPA TIENT VISIT, [facility], [address] [id number] [id number]- [place], [address], [place] tel:[phone] [facility] cough (chief complaint) CoughNasal congestion with rhinorrhea 2 Jo Portillo. [address], [place], [address], [place]. tel:[phone] Referring Provider: Bandar Osorio, [address] [place], [address] . tel:[phone] PSYTX PT&/FAMILY 30 MINUTES [facility], [address] [id number] 6074676PP- [place], [address], [place] tel:[phone] [facility] Schizoaffect filemon disorder, bipolar type 2 Myron Houston. [address] [facility] , [place], [place], [address], [place]. tel:[phone] Referring Provider: Celso Sanches, [address] [place], [address] . tel:[phone] OFFICE/OUTPA TIENT VISIT [facility], [address] [id number]- [place], [address], [place] tel:[phone] Behavior[facility] F2 Tremors (chief complaint) Schizoaffect filemon disorder, bipolar typeType 2 diabetes mellitus without complication , without long-term current use of insulinExtra pyramidal and movement disorderEsse ntial (primary) hypertension Other retirement (current) drug therapyPredi abetesTremor , unspecified Apr-0 2 Dakota Michel. [address] [place], [address], [place]. tel:[phone] Referring Provider: Anand Duncan, [address] [place], [address]. tel:[phone] OFFICE/OUTPA TIENT VISIT EST [facility], [address] [id number] [place], [place], [address], [place] tel:[phone] Behavioral [facility] F2 URI (chief complaint) Acute bronchitis due to other specified organisms Mar-3 2 Dakota Michel. [address] [place], [address], [place]. tel:[phone] Referring Provider: Anand Duncan, [address] [place], [address]. tel:[phone] [facility], [address] [id number] [place], [address], [place] tel:[phone] Behavioral Medicine F2 new psych (chief complaint) Schizoaffect filemon disorder, bipolar type Mar-3 2 No Information OFFICE/OUTPA TIENT VISIT EST [facility], [address] [id number] [id number], [place], [address], [place] tel:[phone] [facility] F2 Injection (chief complaint) Schizophreni a, unspecified type Mar-2 2 Dakota Michel. [address] [place], [address], [place]. tel:[phone] Referring Provider: Anand Duncan, [address] [place], [address]. tel:[phone] PSYTX PT&/FAMILY 30 MINUTES [facility], [address] [id number] [id number]- [place], [address], [place] tel:[phone] [facility] Schizophreni a, unspecified type 2 Lyle Blunt. [address], [place], [address], [place]. tel:[phone] Referring Provider: Merlene Alvarenga, [address] [place], [address] . tel:[phone] OFFICE/OUTPA TIENT VISIT EST [facility], [address] [id number], [place], [address], [place] tel:[phone] [facility] cough/ congestion (chief complaint)htn (chief complaint) Acute coughNasal congestion with rhinorrheaFl uOther schizophreni aHypertensio n 2 Jo Portillo. [address], [place], [address], [place]. tel:[phone] Referring Provider: Bandar Osorio, [address] [place], [address] . tel:[phone] [facility], [address] [id number] [place], [place], [address], [place] tel:[phone] [facility] No Information 2 Marjorie Moreno. [address], [place], [address], [place]. tel:[phone] Referring Provider: Tiffanie Amador, [address] [place], [address] . tel:[phone] [facility], [address] [id number] 3477710VGStevenson, [place], [address], [place] tel:[phone] [facility] No Information 1 Evan Roque. [address], [place], [address], [place]. tel:[phone] Referring Provider: Mya Gusman, [address] [place], [address] . tel:[phone] OFFICE/OUTPA TIENT VISIT, [facility], [address] [id number] [place], [address], [place] tel:[phone] Behavioral Medicine F2 Schizophreni a, unspecified type 1 Evan Roque. [address], [place], [address], [place]. tel:[phone] Referring Provider: Mya Gusman, [address] [place], [address] . tel:[phone] OFFICE/OUTPA TIENT VISIT [facility], [address] [id number] [place], [place], [address], [place] tel:[phone] [facility] prediabetes (chief complaint)Silvia k pain (chief complaint)BPH (chief complaint) PrediabetesT ype 2 diabetes mellitus without complication , without long-term current use of insulinChron ic bilateral low back pain with right-sided sciaticaOthe r chronic painBenign prostatic hyperplasia with urinary frequency 1 Evan Roque. [address], [place], [address], [place]. tel:[phone] Referring Provider: Mya Gusman, [address] [place], [address] . tel:[phone] [facility], [address] [id number] [place], [place], [address], [place] tel:[phone] [facility] No Information 1 Bina Aponte. [address], [place], [address], [place]. tel:[phone] Referring Provider: Fadi Curran, [address] [place], [address] . tel:[phone] OFFICE/OUTPA TIENT VISIT, EST [facility], [address] [id number]- [facility], [place], [place], [address], [place] tel:[phone] [facility] Right upper leg pain / burning for the past (chief complaint) Right sided sciatica Feb-2 1 Jaren Larson. [address], [place], [address], [place]. tel:[phone] Referring Provider: Marsha Eastman, [address] [place], [address] . tel:[phone] [facility], [address] [id number] [place], [place], [address], [place] tel:[phone] [facility] F2 Schizophreni a, unspecified type Feb- 1 Evan Roque. [address], [place], [address], [place]. tel:[phone] Referring Provider: Mya Gusman, [address] [place], [address] . tel:[phone] [facility], [address] [id number]- [place], [address], [place] tel:[phone] Family Medicine F1 Change of job 0 1 Health [facility]. [address], [place], [address], [place]. tel:[phone] [facility], [address] [id number]- [place], [address], [place] tel:[phone] [facility] F2 Schizophreni a, unspecified type Jan- 1 Evan Roque. [address], [place], [address], [place]. tel:[phone] Referring Provider: Mya Gusman, [address] [place], [address] . tel:[phone] OFFICE/OUTPA TIENT VISIT, [facility], [address] [id number] [id number]- [place], [address], [place] tel:[phone] [facility] Earache (chief complaint) Acute otitis externa of right ear, unspecified type 1 Evan Roque. [address], [place], [address], [place]. tel:[phone] Referring Provider: Mya Gusman, [address] [place], [address] . tel:[phone] OFFICE/OUTPA TIENT VISIT, [facility], [address] [id number] [place], [place], [address], [place] tel:[phone] [facility] Schizophreni a, unspecified type 1 Evan Roque. [address], [place], [address], [place]. tel:[phone] Referring Provider: Mya Gusman, [address] [place], [address] . tel:[phone] [facility], [address] [id number] [place], [place], [address], [place] tel:[phone] Family Medicine F1 Cough 1 Med [facility]. [address], [place], [address], [place]. tel:[phone] Referring Provider: Theron Jovel, [address] [place], [address] . tel:[phone] OFFICE/OUTPA TIENT VISIT [facility], [address] Qmunm035C6 8722514GTStevenson, [place], [address], [place] tel:[phone] [facility] Viral syndrome (chief complaint)cou gh, congestion x 1 wk (chief complaint) Contact with and (suspected) exposure to other viral communicable diseasesVira l URI 1 Med [facility]. [address], [place], [address], [place]. tel:[phone] Referring Provider: Theron Jovel, [address] [place], [address] . tel:[phone] [facility], [address] [id number] Vernon, [place], [address], [place] tel:[phone] Family Medicine F1 Unemployment 1 [facility]. [address], [place], [address], [place]. tel:[phone] [facility], [address] [id number] [place], [place], [address], [place] tel:[phone] Behavioral Medicine F2 No Information 1 Evan Roque. [address], [place], [address], [place]. tel:[phone] Referring Provider: Mya Gusman, [address] [place], [address] . tel:[phone] [facility], [address] Snaes170G6 [id number] [place], [place], [address], [place] tel:[phone] [facility] behavioral health f/u (chief complaint)dep ression (chief complaint) Schizophreni a, unspecified type 1 Evan Roque. [address], [place], [address], [place]. tel:[phone] Referring Provider: Mya Gusman, [address] [place], [address] . tel:[phone] [facility], [address] Dqolm879G2 [id number] [place], [address], [place] tel:[phone] [facility] [place] Schizophreni a, unspecified type 1 Gordon Mya. [address], [place], [address], [place]. tel:[phone] Referring Provider: Mya Gusman, [address] [place], [address] . 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 [address], [place], [address], [place]. tel:[phone] Referring Provider: Mya Gusman, [address] [place], [address] . tel:[phone] [facility], [address] Lvbsb980Z7 [id number] [place], [place], [address], [place] tel:[phone] [facility] [place] Schizophreni a, unspecified type 1 Evan Roque. [address], [place], [address], [place]. tel:[phone] Referring Provider: Mya Gusman, [address] [place], [address] . tel:[phone] OFFICE/OUTPA TIENT VISIT, EST [facility], [address] Owchn240X7 5405364SAMount [place], [place], [address], [place] tel:[phone] [facility] [place] knots on legs (chief complaint) Worried well 1 Evan Roque. [address], [place], [address], [place]. tel:[phone] Referring Provider: Mya Gusman, [address] [facility], [place], [address] . tel:[phone] [facility], [address] Attxj940M2 3044031RA- [facility], [place], [place], [address], [place] tel:[phone] [facility] [place] Schizophreni a, unspecified type Apr-2 1 Evan Mya. [address], [place], [address], [place]. tel:[phone] Referring Provider: Mya Gusman, [address] [facility], [place], [address] . tel:[phone] [facility], [address] Pgxou867G4 7774851JG- [place], [address], [place] tel:[phone] [facility] [place] Schizophrenia (chief complaint) Schizophreni a, unspecified type Mar-2 1 Evan Mya. [address], [place], [address], [place]. tel:[phone] Referring Provider: Mya Gusman, [address] [place], [address] . tel:[phone] OFFICE/OUTPA TIENT VISIT, [facility], [address] Rpqit030P5 5172377CU- [facility], [place], [place], [address], [place] tel:[phone] [facility] [place] Dizziness (chief complaint) Dizzy Mar-0 1 Evan Mya. [address], [place], [address], [place]. tel:[phone] Referring Provider: Mya Gusman, [address] [place], [address] . tel:[phone] [facility], [address] Lutxx790G4 3256735GKDecatur Health Systems, [place], [place], [address], [place] tel:[phone] [facility] [place] Schizophreni a, unspecified type Mar-0 1 Gordon Mya. [address], [place], [address], [place]. tel:[phone] Referring Provider: Mya Gusman, [address] [place], [address] . tel:[phone] [facility], [address] Mekki308Q8 4503243WAStevenson, [place], [address], [place] tel:[phone] [facility] [place] Schizophreni a, unspecified type 1 Gordon Mya. [address], [place], [address], [place]. tel:[phone] Referring Provider: Mya Gusman, [address] [place], [address] . tel:[phone] [facility], [address] Ufbkd352J4 6637895LPMount [place], [place], [address], [place] tel:[phone] Family Medicine F1 Schizophreni a, unspecified type 0 Gordon Mya. [address], [place], [address], [place]. tel:[phone] Referring Provider: Mya Gusman, [address] [place], [address] . tel:[phone] [facility], [address] Cyqxq837S3 8395365PTMount [place], [place], [address], [place] tel:[phone] Behavioral Medicine F2 No Information 0 Gordon Mya. [address], [place], [address], [place]. tel:[phone] Referring Provider: Mya Gusman, [address] [place], [address] . tel:[phone] OFFICE/OUTPA TIENT VISIT, EST [facility], [address] Lteql689Q0 9351996UO- [place], [address], [place] tel:[phone] [facility] [place] Referral for urologist (chief complaint)bed bugs (chief complaint)Blo od in stool (chief complaint) Urinary frequencyBlo od in stoolInfesta tion by bed bugOther retirement (current) drug therapyPredi abetesBenign prostatic hyperplasia with urinary frequencyOth er microscopic hematuria Apr-0 7-202 0 Evan Roque. [address], [place], [address], [place]. tel:[phone] Referring Provider: Mya Gusman, [address] [place], [address] . tel:[phone] [facility], [address] Hfnph319J2 8243674TQMount [place], [place], [address], [place] tel:[phone] [facility] [place] Schizophreni a, unspecified type 0 0 Evan Roque. [address], [place], [address], [place]. tel:[phone] Referring Provider: Mya Gusman, [address] [place], [address] . tel:[phone] OFFICE/OUTPA TIENT VISIT EST [facility], [address] Iifum694J6 5102684UV- [place], [address], [place] tel:[phone] [facility] Rash (chief complaint) Rash and other nonspecific skin eruption Mar-0 2202 0 Bina Aponte. [address], [place], [address], [place]. tel:[phone] Referring Provider: Fadi Curran, [address] [place], [address] . tel:[phone] [facility], [address] Oqpzv743A0 4959186CPStevenson, [place], [address], [place] tel:[phone] [facility] [place] Schizophreni a, unspecified type Feb 0 Gordon Mya. [address], [place], [address], [place]. tel:[phone] Referring Provider: Mya Gusman, [address] [place], [address] . tel:[phone] [facility], [address] Helra213D2 5412596EF- [place], [address], [place] tel:[phone] [facility] [place] Schizophreni a, unspecified type Sep-3 0 Gordon Mya. [address], [place], [address], [place]. tel:[phone] Referring Provider: Mya Gusman, [address] [place], [address] . tel:[phone] [facility], [address] Pqmgy429H6 5912943DJMount [place], [place], [address], [place] tel:[phone] [facility] [place] Schizophrenia (chief complaint) Schizophreni a, unspecified typeGenerali zed Anxiety Disorder 0 Gordon Mya. [address], [place], [address], [place]. tel:[phone] Referring Provider: Mya Gusman, [address] [place], [address] . tel:[phone] [facility], [address] Zinwp692U3 8833435UR- [place], [address], [place] tel:[phone] [facility] [place] Generalized Anxiety Disorder Nov- 0 Evan Mya. [address], [place], [address], [place]. tel:[phone] Referring Provider: Mya Gusman, [address] [place], [address] . tel:[phone] [facility], [address] Sktdz404C4 5617811EUMount [place], [place], [address], [place] tel:[phone] Family Medicine F1 Schizophreni a, unspecified type 0 Gordon Mya. [address], [place], [address], [place]. tel:[phone] Referring Provider: Mya Gusman, [address] [place], [address] . tel:[phone] [facility], [address] Etozh441B4 [id number] [place], [place], [address], [place] tel:[phone] Family Medicine F2 schizophrenia (chief complaint) Schizophreni a, unspecified typeGenerali zed Anxiety Disorder 0 Gordon Mya. [address], [place], [address], [place]. tel:[phone] Referring Provider: Mya Gusman, [address] [place], [address] . tel:[phone] [facility], [address] Xqvkb435Z3 4316130VPStevenson, [place], [address], [place] tel:[phone] Family Medicine F1 hypertension (chief complaint) No Information 0 Gordon Mya. [address], [place], [address], [place]. tel:[phone] Referring Provider: Mya Gusman, [address] [place], [address] . tel:[phone] [facility], [address] Fzvdf137Z4 5541587LKStevenson, [place], [address], [place] tel:[phone] Family Medicine F1 Schizophrenia (chief complaint) Schizophreni a, unspecified typeFrequenc y of micturition 0 Gordon Mya. [address], [place], [address], [place]. tel:[phone] Referring Provider: Mya Gusman, [address] [place], [address] . tel:[phone] OFFICE/OUTPA TIENT VISIT, EST [facility], [address] Cgruf501T1 1099606RE- [place], [address], [place] tel:[phone] Family Medicine F1 Blood in urine (chief complaint) Frequency of micturition Aug-2 0 Evan Roque. [address], [place], [address], [place]. tel:[phone] Referring Provider: Mya Gordon R, [address] [place], [address] . tel:[phone] [facility], [address] Llzen155G4 7760865CEMount [place], [place], [address], [place] tel:[phone] Family Medicine F1 Hematuria, unspecified 0 Cale Hernandez. [address], [place], [address], [place]. tel:[phone] Referring Provider: David Flores, [address] [place], [address] . tel:[phone] [facility], [address] Bwzzn340G4 6292589FXMount [place], [place], [address], [place] tel:[phone] Behavioral Medicine F2 No Information 0 No Information OFFICE/OUTPA TIENT VISIT EST [facility], [address] Jvvpr687L1 8217180XCMount [place], [place], [address], [place] tel:[phone] Behavioral Medicine F2 Follow Up of Mood (chief complaint)Fol low Up of Go over labs (chief complaint)Fol low Up of BPH (chief complaint)Fol low Up of HTN (chief complaint)Fol low Up of Medication Refills (chief complaint) Benign prostatic hyperplasia with urinary frequencyFre quency of micturitionG eneralized Anxiety DisorderHypo natremiaHype rtensionMixe d hyperlipidem iaSchizophre michaela, unspecified typeOther retirement (current) drug therapy Jul-3 0 Aquilino Potter. [address] [place], [place], [address], [place]. tel:[phone] Referring Provider: Abbey Rolle, [address] [place], [address] . tel:[phone] [facility], [address] Qhclg035E2 [id number] [place], [place], [address], [place] tel:[phone] Behavioral Medicine F2 Mixed hyperlipidem iaEssential (primary) hypertension Other retirement (current) drug therapy Jul-2 0 No Information OFFICE/OUTPA TIENT VISIT, EST [facility], [address] Fwyng380Z2 [id number] [place], [place], [address], [place] tel:[phone] Behavioral Medicine F2 Schizophrenia (chief complaint)MAIDA (chief complaint)med ication management (chief complaint) Schizophreni a, unspecified type Jul-2 0 No Information [facility], [address] Fjnge919Z3 4033772NWOrleans, [place], [address], [place] tel:[phone] [facility] [place] Schizophreni a, unspecified type Jul-0 0 Evan Roque. [address], [place], [address], [place]. tel:[phone] Referring Provider: Mya Gusman, [address] [place], [address] . tel:[phone] [facility], [address] Hcpew720C4 6915295IQMount [place], [place], [address], [place] tel:[phone] [facility] [place] Schizophreni a, unspecified type Fe- 0 Evan Roque. [address], [place], [address], [place]. tel:[phone] Referring Provider: Mya Gusman, [address] [place], [address] . tel:[phone] [facility], [address] Fmgfa843Z6 2565786KA- [facility], [place], [place], [address], [place] tel:[phone] [facility] No Information 0 Evan Roque. [address], [place], [address], [place]. tel:[phone] Referring Provider: Mya Gusman, [address] [place], [address] . tel:[phone] OFFICE/OUTPA TIENT VISIT, [facility], [address] Tsgat005I1 6621695UCStevenson, [place], [address], [place] tel:[phone] [facility] [place] Shortness of breath (chief complaint) COPD 0 Evan Roque. [address], [place], [address], [place]. tel:[phone] Referring Provider: Mya Gusman, [address] [place], [address] . tel:[phone] [facility], [address] Karnn280L1 3397935IBStevenson, [place], [address], [place] tel:[phone] [facility] No Information 0 Evan Roque. [address], [place], [address], [place]. tel:[phone] Referring Provider: Mya Gusman, [address] [place], [address] . tel:[phone] [facility], [address] Wxazb862O9 4690786YLStevenson, [place], [address], [place] tel:[phone] [facility] [place] Follow Up of Schizophrenia (chief complaint) Schizophreni a, unspecified typeGenerali zed Anxiety Disorder May-0 9-202 0 Gordon Mya. [address], [place], [address], [place]. tel:[phone] Referring Provider: Mya Gusman, [address] [place], [address] . tel:[phone] [facility], [address] Nicxx056G6 0775912KWMount [place], [place], [address], [place] tel:[phone] [facility] [place] Schizophreni a, unspecified type 0 2-202 0 Gordon Mya. [address], [place], [address], [place]. tel:[phone] Referring Provider: Mya Gusman, [address] [place], [address] . tel:[phone] [facility], [address] Dgqal837Q6 7266986FPMount [place], [place], [address], [place] tel:[phone] [facility] (chief complaint) Other retirement (current) drug therapySchiz ophrenia, unspecified typeGenerali zed Anxiety Disorder Apr-0 201 9 Gordon Mya. [address], [place], [address], [place]. tel:[phone] Referring Provider: Mya Gusman, [address] [place], [address] . tel:[phone] [facility], [address] Eievj363S2 7118278SSMount [place], [place], [address], [place] tel:[phone] [facility] [place] Schizophreni a, unspecified type 0 9 Gordon Mya. [address], [place], [address], [place]. tel:[phone] Referring Provider: Mya Gusman, [address] [place], [address] . tel:[phone] OFFICE/OUTPA TIENT VISIT [facility], [address] Kfmny656E7 9438875GIStevenson, [place], [address], [place] tel:[phone] [facility] [place] Est. Care (chief complaint)Mus culoskeletal pain (chief complaint)Tamela rrhea (chief complaint) Diarrhea, unspecified typeSciatica of left sideSchizoph herb, unspecified typeOther retirement (current) drug therapy 9 Evan Roque. [address], [place], [address], [place]. tel:[phone] Referring Provider: Mya Gusman, [address] [place], [address] . tel:[phone] OFFICE/OUTPA TIENT VISIT, [facility], [address] Mkwbg981G6 2849060SCMount [place], [place], [address], [place] tel:[phone] Family Medicine F1 Body aches, nausea, (chief complaint) Viral syndrome 9 No Information OFFICE/OUTPA TIENT VISIT, [facility], [address] Bwqom177R7 9100043YUMount [place], [place], [address], [place] tel:[phone] Family Medicine F1 Hospital F/U (chief complaint) Hospital discharge follow-up 9 No Information [facility], [address] Eaafv369J6 0814924KTMount [place], [place], [address], [place] tel:[phone] Family Medicine F1 Generalized Anxiety Disorder 9 No Information OFFICE/OUTPA TIENT VISIT, [facility], [address] Fpdho018E2 [id number] [place], [place], [address], [place] tel:[phone] Family Medicine F1 Exam diarrhea (chief complaint) Diarrhea, unspecified type 9 Bina Aponte. [address], [place], [address], [place]. tel:[phone] Referring Provider: Fadi Curran, [address] [place], [address] . tel:[phone] OFFICE/OUTPA TIENT VISIT, [facility], [address] Hvzkz719E8 1951416ZXMount [place], [place], [address], [place] tel:[phone] Family Medicine F1 Diarrhea (chief complaint) Diarrhea, unspecified type Feb-0 7 9 No Information [facility], [address] Ohhyl743I8 4634452LWMount [place], [place], [address], [place] tel:[phone] Family Medicine F1 No Information Feb-0 9 No Information [facility], [address] Bjsaj828S9 [id number] Vernon, [place], [address], [place] tel:[phone] Family Medicine F1 No Information Feb-0 9 Jose D Armstrong. [address], [place], [address], [place]. tel:[phone] Referring Provider: Nathaniel Jeffery, [address] [place], [address] . tel:[phone] OFFICE/OUTPA TIENT VISIT, [facility], [address] Kvqqp866O7 2994154WDMount [place], [place], [address], [place] tel:[phone] Family Medicine F1 Diarrhea (chief complaint) Diarrhea, unspecified typeTremors of nervous system Sep-3 0 9 No Information OFFICE/OUTPA TIENT VISIT, [facility], [address] Dvtql961P6 5182470ESMount [place], [place], [address], [place] tel:[phone] Family Medicine F1 Hospital F/U (chief complaint) Homelessness Hospital discharge follow-up Jan- 9 No Information OFFICE/OUTPA TIENT VISIT, [facility], [address] Qzscp127G8 7812118NK- [facility], [place], [place], [address], [place] tel:[phone] Family Medicine F1 Invega Injection (chief complaint) Schizophreni a, unspecified type No Information OFFICE/OUTPA TIENT VISIT, [facility], [address] Sqbnn104B1 0938568EKDecatur Health Systems, [place], [place], [address], [place] tel:[phone] Family Medicine F1 Medication Management (chief complaint)Nee ds Note (chief complaint) Generalized Anxiety DisorderHype rtensionUrin hanane frequencyMix ed hyperlipidem ia No Information [facility], [address] Uwmaj055X8 2819691QGDecatur Health Systems, [place], [place], [address], [place] tel:[phone] Family Medicine F1 Pain in left foot 9 Suzanne Rodriguez. [address], [place], [address], [place]. [phone] Referring Provider: Michael Palacios, [address] [place], [address] . tel:[phone] [facility], [address] Vemnz643G3 4519692IQMiami [facility], [place], [place], [address], [place] tel:[phone] Family Medicine F1 No Information 9 No Information OFFICE/OUTPA TIENT VISIT, [facility], [address] Hlgvw974P6 7508175QKMount [place], [place], 390[address], [place] tel:[phone] Family Medicine F1 Left foot pain (chief complaint) Left foot painHomeless ness 9 No Information [facility], [address] Dlfgx737S5 9183220OBStevenson, [place], [address], [place] tel:[phone] Family Medicine F1 Homelessness 9 Health [facility]. [address], [place], [address], [place]. tel:[phone] Referring Provider: [facility], [address] [place], [address] . tel:[phone] OFFICE/OUTPA TIENT VISIT, EST [facility], [address] Wdpvo191Y7 4143210TV- [place], [place], [address], [place] tel:[phone] Family Medicine Establish Care (chief complaint)walt elessness (chief complaint) Generalized Anxiety DisorderHype rtensionMixe d hyperlipidem iaHomelessne ss No Information [facility], [address] Irkpg445H8 3553535IDStevenson, [place], [address], [place] tel:[phone] Family Medicine Homelessness 9 Health [facility]. [address], [place], [address], [place]. [phone] Referring Provider: [facility], [address] [place], [address] . tel:[phone] [facility], [address] Upmjm958Q5 0920276GV- [place], [place], [address], [place] tel:[phone] [facility] Other specified counseling No Information [facility], [address] Mrhjo067V7 4749788VF- [place], [place], [address], [place] tel:[phone] [facility] No Information 9 Dakota Michel. [address] [place], [address], [place]. tel:[phone] Referring Provider: Anand Duncan, [address] [place], [address]. tel:[phone] [facility], [address] Lbdyj719Y6 3792198BE- [facility], [place], [place], [address], [place] tel:[phone] [facility] No Information 9 Dakota Michel. [address] [place], [address], [place]. tel:[phone] Referring Provider: Anand Duncan, [address] [place], [address]. tel:[phone] [facility], [address] Slaot423N2 9280430CTStevenson, [place], [address], [place] tel:[phone] [facility] No Information 8 Dakota Michel. [address] [place], [address], [place]. tel:[phone] Referring Provider: Anand Duncan, [address] [place], [address]. tel:[phone] OFFICE/OUTPA TIENT VISIT, [facility], [address] Csqoa679I3 8032040ERStevenson, [place], [address], [place] tel:[phone] [facility] Est. Care (chief complaint)Chr onic conditions (chief complaint) Hypertension Mixed hyperlipidem iaGeneralize d Anxiety DisorderHypo natremiaUrin hanane frequency 8 Dakota Michel. [address] [place], [address], [place]. tel:[phone] Referring Provider: Anand Duncan, [address] [place], [address]. tel:[phone] [facility], [address] Pehtx390K4 6314439EJStevenson, [place], [address], [place] tel:[phone] [facility] No Information 3201 8 Dakota Michel. [address] [place], [address], [place]. tel:[phone] Family History Family Member Type Diagnosis Age At Onset No Information Immunizations Vaccine Date Status Comments Tdap (7 yrs and older) administered Note: VIS: 12/17/20 Patient had no reaction while in clinic. kw ; Source: New Immunization Record Flu Vaccine 6 Months and older administered Source: Public Agenc y Flu Vaccine 6 Months and older administered Note: [facility] ; Source: Source Unspecified Payers Payer name Insurance type Covered alliance party ID Authorizbayron quiñones(s) M [facility] Dual Com plete Medica CI [id number] M [place] Medicaid [id number] [facility] Dual Com plete Medica CI [id number] M [place] Medicaid [id number] Social History Type Description Quantity Date Captured Comments Sex Male Smoking Status No Information Sexual Orientation Heterosexual Gender Identity Male Chief Complaint And Reason For Visit No Information Reason For Referral Reason For Referral No Information Plan Of Treatment Date Type Action Status Goal Dietary manageme nt education, guidance, and counseling completed Goal Dietary manageme nt education, guidance, and counseling completed Goal Dietary manageme nt education, guidance, and counseling completed Goal Tobacco cessation counseling completed Goal Dietary manageme nt education, guidance, and counseling completed Goal Dietary manageme nt education, guidance, and counseling completed Goal Dietary manageme nt education, guidance, and counseling completed Goal Dietary manageme nt education, guidance, and counseling completed Goal Tobacco cessation counseling ordered Goal Dietary manageme nt education, guidance, and counseling completed Goal Dietary manageme nt education, guidance, and counseling completed Referral Ordered: Referrals: [facility]. [facility] ordered Referral Ordered: Referrals: Urology. Location: [facility]. Assume care ordered Referral Ordered: Referrals: physcial therapy. Location: [facility]. Evaluate and treat ordered Referral Ordered: Referrals: Location: SDOH (related to Unemployment) ordered Referral Ordered: [employer] (related to Unemployment) ordered Referral Ordered: Referrals: Urology. Location: [facility]. Evaluate and treat ordered Referral Ordered: Referrals: Urology ordered Referral Ordered: Referrals: neurologist ordered Referral Ordered: Referrals: [place] ordered Referral Ordered: Referrals: Location: [facility] ordered Referral Ordered: Referrals: Urology. Consult ordered Patient Education Sciatica: Exercises com pleted Patient Education Sciatica: Care Instruct ions completed Patient Education Sciatica: Exercises com pleted Patient Education Low Back Pain: Exercise s completed Future Order: Lab Order OxyC1z-O linic/POC ([id number]), Appointment on: , Sent on: Sent Future Order: Lab Order COVID-19 PCR-JV ([id number]), Sent on: Sent Future Order: Radiology Order Ch est 2 Views ([id number]), Ordered on: Ordered History Of Present Illness Encounter Date Complaint History Of Prese nt Illness Medication Management Telephone appointment today.Robert reports he has moved to [place] and is needing his injection sent to the Pharmacy in [place] to make sure he does not miss a dosage. He states he relocated there with his brother.He states he could not take it anymore in [place], and needed to get out of town.He denies SI/HI/AH/VH.He has no complaints or concerns at this time.Plans on establishing care in [place] for Psychiatric Care. Schizoaffective disorder This is a follow up visit. Related symptoms are recurrent. There is no worsening of previously reported symptoms. The client reports functioning as not difficult at all. The client presents with anxious/fearful thoughts. The Schizoaffective disorder is aggravated by conflict or stress, social interactions and traumatic memories. The client denies any headache, nausea, urinary frequency, vomiting and weight gain. The client denies any associated symptoms. Generalized Anxiety Disorder [facility] care Patient here todaniel rodriguez to establish careH: Parkinson's diseaseMedications: reviewed Allergies: reviewed Social history: homeless Patient has issues with prediabetes, hyperlipemia, schizophrenia, BPHVocation: He is jew, he is currently homeless Social Support: He has a sister in [place]. 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 Related symptoms are recurrent. There is no worsening of previously reported symptoms. The client reports functioning as not difficult at all. The client presents with paranoia, poor judgment and racing thoughts. The Schizoaffective disorder is aggravated by conflict or stress, social interactions and traumatic memories. The client denies any headache, nausea, urinary frequency, vomiting and weight gain. The client denies any associated symptoms. Medication Management Patient re ports roommate lost apartment and he is couch surfing. 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 Patient is stimulated with Manic laugh. Patient Denies SI/ HI/ AH/ UH. Generalized Anxiety Disorder blurry vision Last EE was over a year ago. Feels like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 Assessment:Past suicide attempts: deniesCurrent suicidal ideation: deniesPast homicide attempts: deniesHx of self-harm behaviors: deniesAbuse History:The patient was asked about any history of trauma, including Physical, Verbal, Sexual, Elder abuse / neglect, as well as, Immigration trauma. Patient denies any history of being a victim of / witness to Domestic or Community violence.Substance Use History: The following substances and behaviors were discussed; illegal drugs, prescription drugs, [id number]-[id number] drugs, gambling, alcohol, tobacco and vaping.Reports alcoholism, been sober for 37 years. has not smoked cigarettes in 8 yearsFamily History:No adoption history. Patient denies family history of medical, and substance use. Patient has family history of alcohol or substance use.Pt reports mom may have had mental health-she shot and killed her . Brothers, 2 of them abused alcohol. Medical History:COPD-no current inhalers on med list, reports breathing is good most of the time. HTNBPHHyperlipidemiaSocial History:[facility] Social Supports were discussed; yazidism, family/friendships, therapy, and cultural/ethnic/community supports. I believe in GodPatient reports having support from God, ERROL-Cr, familySexual Orientation: born male, ID male, heterosexualMarital Status: girlfriendNumber of times /: 1/0/is . Children: noneMilitary Service: deniesLegal Information (guardian, probation, parole):Reports hx of incarcerationHas [facility] History:Denies inutero exposure to drugs/alcoholMet milestones on timeEducation:Highest level of education completed is 6th gradeEmployment: currently pending SSI, has a payee. Past sxs without medications include confusion, depression, hx of auditory hallucinations, has gone 96 hours without sleep having plenty of energy, has had delusions in the past, has quite a bit of irritability, Reports having thoughts about different things can't keep mind on track at time. Diarrhea Onset: 2 months ago. The patient describes it as loose. Pertinent negatives include abdominal pain, bloating and flatulence. Additional information: Normal stools unless he drinks milk then he will have diarrhea. Can tolerate other dairy products. He is drinking 1-2% milk only with cereal. Last diarrhea was this last weekend. Drank milk yesterday. Musculoskeletal pain It occurs i ntermittently and is fluctuating. Location: left hip. The pain radiates to the left buttock. The pain is burning and sharp. Context: there is no injury. The pain is aggravated by sitting and walking. Associated symptoms include limping and swelling. Additional information: low back pain, has had injury several years ago, carrying groceries home from bus and had to have shots in the ED in his hip. Est. Care PHQ 0.Seeing a n eurologist at [facility]-for parkinsons dslast colonoscopy was 5 years ago-has an appt with GI doctor in 1 week-to establish care: Dr. Hayes Body aches, nausea, Body aches, nausea, (comments) p t with CC of being sick states he has had malaise URI sx, diarrhea for past week was seen and they didn't check me for the flu is requesting flu swab and hemp for pain . denies CP, dyspnea, fever. pt requesting a new PCP. Hospital F/U Pt was seen in t he ER last week for pain under left arm. Pt reports this is resolved. Exam diarrhea The symptoms beg an 3 weeks ago. Pt c/o chronic diarrhea x 3wks and chronic abdominal pain not improved with OTC medsSeen in the ED for thisSeen his PCP multiple times for the same problemAlso desires Invega injection todayWould like med refills sent to [facility] of [facility] Diarrhea Pertinent negati ves include abdominal pain, blood in stool, fever, nausea, rash and vomiting. Additional information: No diarrhea today. Pt reports needing money to black pickler prescriptions. Pt requesting OTC medications prescribed. Diarrhea Pertinent negati ves include abdominal pain, blood in stool, fever, nausea, rash and vomiting. Additional information: Pt reports he still is having continued diarrhea. Hospital F/U Pt reports I dr krishnamurthy out of a glass that someone else used and have had diarrhea since . Pt reports he was seen in ER for abdominal pain and diarrhea. Pt requesting bus passes and medications cost to be waved again. [facility]ga Injection Medication Management Needs Refi lls Needs Note Needs note stati james he was here for [place]. Left foot pain Location: left f oot. Establish Care Pt needing to es tablish care. homelessness Pt needing help getting medications cannot afford. Est. Care The symptoms are reported as being moderate. The symptoms occur daily. He states the symptoms are chronic. Benedicto Amaral is a 58 year old male that is a Resident at [facility]. He has been there for a little while. He has some psychological complications as well as Hypertension, Hyperlipidemia, and Urinary Frequency. Chronic conditions 1) Hypertensi on (He has been taking Lisinopril daily for Hypertension. He reports he is doing well. He denies any side effects from the medications. He stated that overall he is doing well.) 2) Mixed hyperlipidemia (He comes in for Hyperlipidemia. He is currently on Simvastatin. He has had labs drawn recently. He stated that he is doing well on his medications. Denies any focal concerns, Denies any side effects from this medications, and denies any other issues related to Hyperlipidemia.) 3) Generalized Anxiety Disorder (He comes in for MAIDA. He has been treated and maintained on his current medication. He is doing well. He denies any SI or HI. He denies any Side effects from his medications. He does not want any changes in his medications at this time.) 4) Hyponatremia (He reports that he had a low Sodium level on the last time he had labs drawn a few months ago. He does have a history of being admitted for Hyponatremia with mental changes. He does not have any mental changes or changes in cognition at this time. Denies any focal issues, concerns, or side effects.) 5) Urinary frequency (He has been seen for repeated urinary frequency. He was seen by a different provider with these complaints. He stated that he was started on Flomax. He stated that he attempted to take this rx and stated that he did not notice any difference in his symptoms. He does report that he has had a PSA in the past that was normal.) Pertinent negatives include fatigue. Functional Status Date Functional Assessmen t No Information Instructions Date Instruction Additional Maurizior ifeoma 1. Continue all medi cations without change. E-scribed Invega Injection to [facility]. 2. Will be seen again if needed. 3. Medication education completed and verbalized understanding4. Encouraged healthy diet and exercise5. Will call with any questions or concerns6. I reviewed the patient's chart including previous progress notes, lab data and nursing notes. We spoke about the risks and benefits of changes being made in medications, including possible drug/drug interactions and potential side effects. I explained the reason for the changes, i.e. better genetic match, different side effect profile and targeted symptoms. I explained other treatment options available. We also spoke about life style changes, including diet, exercise and substance abuse. Lastly, we spoke about continuing the treatment plan and what to do if conditions worsen. Related to Schizoaffective disorder, bipolar type Hypertension education Related t o Schizoaffective disorder, bipolar type 1. Continue Inveaga 234mg 1M monthly. Continue all other medications without change. 2. Will be seen again in 4 weeks.3. Medication education completed and verbalized understanding4. Encouraged healthy diet and exercise5. Will call with any questions or concerns6. I reviewed the patient's chart including previous progress notes, lab data and nursing notes. We spoke about the risks and benefits of changes being made in medications, including possible drug/drug interactions and potential side effects. I explained the reason for the changes, i.e. better genetic match, different side effect profile and targeted symptoms. I explained other treatment options available. We also spoke about life style changes, including diet, exercise and substance abuse. Lastly, we spoke about continuing the treatment plan and what to do if conditions worsen. Related to Schizoaffective disorder, bipolar type RTC 1 yr [place]iloh or sooner if proble ms. 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 Continue treatmen t plan with no change 2. Will be seen again in 4 weeks time3. Medication education completed and verbalized understanding4. Encouraged healthy diet and exercise5. Will call with any questions or concerns6. I reviewed the patient's chart including previous progress notes, lab data and nursing notes. We spoke about the risks and benefits of changes being made in medications, including possible drug/drug interactions and potential side effects. I explained the reason for the changes, i.e. better genetic match, different side effect profile and targeted symptoms. I explained other treatment options available. We also spoke about life style changes, including diet, exercise and substance abuse. Lastly, we spoke about continuing the treatment plan and what to do if conditions worsen. 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 Refused Invega 23 4 mg IM today; Continue benztropine; Will give Invega when patient walks into clinic. 2. Will be seen again in 4 weeks. 3. Medication education completed and verbalized understanding4. Encouraged healthy diet and exercise5. Will call with any questions or concerns6. I reviewed the patient's chart including previous progress notes, lab data and nursing notes. We spoke about the risks and benefits of changes being made in medications, including possible drug/drug interactions and potential side effects. I explained the reason for the changes, i.e. better genetic match, different side effect profile and targeted symptoms. I explained other treatment options available. We also spoke about life style changes, including diet, exercise and substance abuse. Lastly, we spoke about continuing the treatment plan and what to do if conditions worsen. Related to Generalized anxiety disorder Take your medication as directedYour A1c was 6.0 todayBe mindful of your diet, decrease carbs and increase fruits, vegetables, and lean meatsIncrease physical activity to 30 minutes a majority of the weekkeep a log of your blood sugarsReturn to the clinic in 3 months for [id number] good foot hygiene, wear closed toed shoes. Notify office if you start to develop a wound or sore. Maintain yearly dilated eye examMake sure that you keep something on hand to give yourself if you have a low blood sugar readingReturn to call the clinic as needed before your next appointment. Related to Hyperglycemia Patient advised about exercise R elated to Hyperglycemia Weight control education Related to Hyperglycemia Hypertension education Related t o Hyperglycemia Dietary management e ducation, guidance, and counseling Related to Hyperglycemia 1. Continue all medi cations without change2. Will be seen again in 4 weeks time 3. Medication education completed and verbalized understanding4. Encouraged healthy diet and exercise5. Will call with any questions or concerns6. I reviewed the patient's chart including previous progress notes, lab data and nursing notes. We spoke about the risks and benefits of changes being made in medications, including possible drug/drug interactions and potential side effects. I explained the reason for the changes, i.e. better genetic match, different side effect profile and targeted symptoms. I explained other treatment options available. We also spoke about life style changes, including diet, exercise and substance abuse. Lastly, we spoke about continuing the treatment plan and what to do if conditions worsen. 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 Continue all medi cations without change. Invega 234mg IM today. 2. Will be seen again in 4 weeks time 3. Medication education completed and verbalized understanding4. Encouraged healthy diet and exercise5. Will call with any questions or concerns6. I reviewed the patient's chart including previous progress notes, lab data and nursing notes. We spoke about the risks and benefits of changes being made in medications, including possible drug/drug interactions and potential side effects. I explained the reason for the changes, i.e. better genetic match, different side effect profile and targeted symptoms. I explained other treatment options available. We also spoke about life style changes, including diet, exercise and substance abuse. Lastly, we spoke about continuing the treatment plan and what to do if conditions worsen. 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 We sat and discussed at length about all current lab results and possible implications for his care- all questions were answered- Discussed dietary and medication changes/recommendations and signs and symptoms to be aware of with these values- Related to Counseling and coordination of care Dietary management e ducation, guidance, and counseling Related to Counseling and coordination of care Patient advised about exercise R elated to Counseling and coordination of care Weight control education Related to Counseling and coordination of care Hypertension education Related t o Counseling and coordination of care Weight control education 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 Hypertension education Related t o Undifferentiated schizophrenia referral to [facility]- he has seen urology before *about 4 yrs ago there*Return as neededReturn in 4 weeks w myself for a follow up exam Related to Benign prostatic hyperplasia with urinary frequency Return in 10 days fo r a follow up for your injection- Make and keep an apt w Efrain in 2 weeks Related to Schizophrenia, unspecified type Dietary management e ducation, guidance, and counseling Related to Benign prostatic hyperplasia with urinary frequency Patient advised about exercise R elated to Benign prostatic hyperplasia with urinary frequency Weight control education Related to Benign prostatic hyperplasia with urinary frequency Hypertension education Related t o Benign prostatic hyperplasia with urinary frequency *Needs PCP f/u for t his problemWill order another PCR covid test (NEG covid pcr this week) as well as CXR for his chronic coughResults pending, will contact once received, treatment if indicated Related to Weakness as aboveCovid PCR and CXR ordere d Related to Chronic cough Follow w DAnson Edraegansreturn as nee ded 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 A1c was normal today continue current plan of care- no medications needed todayfollow up in 2 months Related to Prediabetes labs todayAbx todayreturn as nee ded Related to Benign prostatic hyperplasia with urinary frequency Covid Test todayPlan based on results- likely NEG today Related to Acute cough Uncontrolledfollow up w Caroline Godwin [facility] Related to Schizoaffective disorder, bipolar type Weight control education Related to Acute cough Hypertension education Related t o Acute cough Dietary management e ducation, guidance, and counseling Related to Acute cough Patient advised about exercise R elated to Acute cough 1. Continue all medi cations without change. Invega 234mg IM every 4 weeks time 2. Will be seen again in 4 weeks time 3. Medication education completed and verbalized understanding4. Encouraged healthy diet and exercise5. Will call with any questions or concerns6. I reviewed the patient's chart including previous progress notes, lab data and nursing notes. We spoke about the risks and benefits of changes being made in medications, including possible drug/drug interactions and potential side effects. I explained the reason for the changes, i.e. better genetic match, different side effect profile and targeted symptoms. I explained other treatment options available. We also spoke about life style changes, including diet, exercise and substance abuse. Lastly, we spoke about continuing the treatment plan and what to do if conditions worsen. 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 Pt ad vised to make appointment with PCP to discuss. Medication with instructions. Pt to continue allergy meds as prescribed. 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 Related to Schizoaffective disorder, bipolar type check labs todayretu rn as neededplan based on labs- Related to Type 2 diabetes mellitus without complication, without long-term current use of insulin Patient advised about exercise R elated to Schizoaffective disorder, bipolar type Weight control education Related to Schizoaffective disorder, bipolar type Hypertension education Related t o Schizoaffective disorder, bipolar type Dietary management e ducation, guidance, and counseling Related to Schizoaffective disorder, bipolar type Drink plenty of flui dsRestTylenol or Motrin as needed for pain, fever, and achesTake medications as directedHumidifier to room at night for comfort as neededReturn to the clinic if you are not better in 7-10 days or become worse. Follow up as needed. Related to Acute bronchitis due to other specified organisms Dietary management e ducation, guidance, and counseling Related to Acute bronchitis due to other specified organisms Patient advised about exercise R elated to Acute bronchitis due to other specified organisms Weight control education Related to Acute bronchitis due to other specified organisms Hypertension education Related t o Acute bronchitis due to other specified organisms injection todayretur n as neededkeep apt with PSYreturn in 4 weeks for next injection Related to Schizophrenia, unspecified type Patient advised about exercise R elated to Schizophrenia, unspecified type Weight control education Related to Schizophrenia, unspecified type Hypertension education Related t o Schizophrenia, unspecified type Dietary management e ducation, guidance, and counseling Related to Schizophrenia, unspecified type Pt will not take his meds. Pt advised to make an appointment with his PCP to discuss. Advised to seek medical if he has severe headache, ringing in the ears, severe nose bleeds or acute vision issues. Related to Hypertension Pt did not want to g o back to the hospital. Pt will not take his meds. Did not want to hurt himself or others. Appointment made with [facility]. Related to Other schizophrenia Positive for flu A. Push Fluids. Good handwashing. Discussed pt being contagious. Rest. OTC meds to relieve symptoms. Pt to F/U with PCP in 7-10 days if symptoms not improved or sooner if symptoms worsen. Related to Flu Encourage Ibuprofen or other NSAIDs-pt declines. Increase gabapentin to 300mg three times daily. Instructed pt to apply warm compress with caution 2-3 times daily followed by ROM exercises/stretches. Printed exercises were provided. All pt questions were answered. Pt expressed understanding.Note provided to allow sitting while working for next 4-8 weeks and we will recheck in office monthly. If sxs do not improve consider MRI. Related to Chronic bilateral low back pain with right-sided sciatica A1c 6.5-this is a ne w diagnosis of DMWill refer to DM management program at the main location. This is free of charge and will include general education as well as an appt with dietitian and clinical pharmacist. Discussed medications vs dietary adjustments and we will focus on BG control with lifestyle modifications alone. Related to Type 2 diabetes mellitus without complication, without long-term current use of insulin Weight control education Related to Type 2 diabetes mellitus without complication, without long-term current use of insulin Hypertension education Related t o Type 2 diabetes mellitus without complication, without long-term current use of insulin Recommend walking fo r pain relief.Ibuprofen TID PRN with food.Make appt with PCP for follow up. Related to Right sided sciatica Cipro ear drops 2 ti mes daily for 1 week. Avoid getting water in ear. Use tylenol or ibuprofen for pain. Pt educated on signs and symptoms that indicate to return to clinic or seek emergent care. All pt questions were answered and pt expressed understanding. Related to Acute otitis externa of right ear, unspecified type COVID19 test ordered and pending.Advised to self-quarantine until negative test results received or further instructions given.Work/school note given if requestedWash hands frequently, monitor for symptoms and treat symptomatically if they occur.Go to ER for SOA, confusion, or fever not controlled by ibuprofen.RTC PRN acute care concerns. Related to Contact with and (suspected) exposure to other viral communicable diseases Likely viral. Tessal on Perles and Xyzal PRN prescribed.Discussed usual course of viral infection. Supportive therapy advised (Tylenol/ibuprofen/DayQuil/NyQuil/Ceti rizine as needed for symptoms, drink plenty of fluids, get plenty of rest, cough into elbows or tissue and throw tissue away right away, wash hands frequently). Follow up with PCP in 7 to 10 days if not improved and RTC PRN acute care concerns. Related to Viral URI Well controlledConti nue medications without change. Pt refused invega injection today and wishes to have this completed at the [facility] location due to nurse preference. I offered to perform injection and he still wished to [place] on risks and benefits of medication changes including possible pharmacologic interactions, expectations of efficacy and potential side effects. Reason for medications and/or changes were explained including genetic match, side effect profile, and targeted symptoms. We discussed other options for treatment and lifestyle changes. Pt was instructed to continue treatment plan as discussed today. Pt was educated on signs and symptoms that indicate to return to the clinic or seek emergent care. All pt questions were answered, pt expressed understanding.F/u with nurse for injection in 4 weeks and 8 weeksF/u with provider in 12 weeks. Related to Schizophrenia, unspecified type Well controlledConti nue medications without change. Patient was educated on risks and benefits of medication changes including possible pharmacologic interactions, expectations of efficacy and potential side effects. Reason for medications and/or changes were explained including genetic match, side effect profile, and targeted symptoms. We discussed other options for treatment and lifestyle changes. Pt was instructed to continue treatment plan as discussed today. Pt was educated on signs and symptoms that indicate to return to the clinic or seek emergent care. All pt questions were answered, pt expressed understanding.F/U in 1 months. Related to Schizophrenia, unspecified type Hypertension education Related t o Schizophrenia, unspecified type Weight control education Related to Schizophrenia, unspecified type Discussed normal res ults. F/u as needed. Related to Worried well Patient was educated on risks and benefits of medication changes including possible pharmacologic interactions, expectations of efficacy and potential side effects. Reason for medications and/or changes were explained including genetic match, side effect profile, and targeted symptoms. We discussed other options for treatment and lifestyle changes. Pt was instructed to continue treatment plan as discussed today. Pt was educated on signs and symptoms that indicate to return to the clinic or seek emergent care. All pt questions were answered, pt expressed understanding. 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 Pt is aware of signs and sxs to contact the clinic for further treatment. Related to Infestation by bed bug Will call pt to repo rt lab results and further plan of care including adjustments to medication if indicated and recommendations for f/u. Related to Other retirement (current) drug therapy Sign ROR for colonos copy. Pt reports biopsy was completed for polyp but is not sure what the result was or how long ago this was. Pt reports not currently a problem and usually comes with constipation which is well controlled at this time Related to Blood in stool Will call pt to repo rt lab results and further plan of care including adjustments to medication if indicated and recommendations for f/u.Pt requests to move urology services to [facility]. ROR for Dr. Otrega's office to be completed today. Related to Benign prostatic hyperplasia with urinary frequency Rash consistent with Scabies (see PE)We discussed the etiology of this rash and how to eradicate the parasitesVERY contagious and if other close contacts are experiencing similar sx I would recommend they come in for evaluation as wellMeds Rx'd (such as permethrin) and supportive care recommendedf/u w/PCP in ~1week if sx are ongoing. Related to Rash and other nonspecific skin eruption Patient was educated on risks and benefits of medication changes including possible pharmacologic interactions, expectations of efficacy and potential side effects. Reason for medications and/or changes were explained including genetic match, side effect profile, and targeted symptoms. We discussed other options for treatment and lifestyle changes. Pt was instructed to continue treatment plan as discussed today. Pt was educated on signs and symptoms that indicate to return to the clinic or seek emergent care. All pt questions were answered, pt expressed understanding. Related to Schizophrenia, unspecified type Weight control education Related to Schizophrenia, unspecified type Hypertension education Related t o Schizophrenia, unspecified type As above. Related to Gener alized Anxiety Disorder Well controlled.Cont inue all medications as prescribed including invega injection given today, depakote 500mg twice daily and benstropine, Patient was educated on risks and benefits of medication changes including possible pharmacologic interactions, expectations of efficacy and potential side effects. Reason for medications and/or changes were explained including genetic match, side effect profile, and targeted symptoms. We discussed other options for treatment and lifestyle changes. Pt was instructed to continue treatment plan as discussed today. Pt was educated on signs and symptoms that indicate to return to the clinic or seek emergent care. All pt questions were answered, pt expressed understanding.F/u in 1 month with nurse only for injectionF/u with provider in 2 months. Related to Schizophrenia, unspecified type Will call pt to repo rt lab results and further plan of care. Related to Frequency of micturition Patient was educated on risks and benefits of medication changes including possible pharmacologic interactions, expectations of efficacy and potential side effects. Reason for medications and/or changes were explained including genetic match, side effect profile, and targeted symptoms. We discussed other options for treatment and lifestyle changes. Pt was instructed to continue treatment plan as discussed today. Pt was educated on signs and symptoms that indicate to return to the clinic or seek emergent care. All pt questions were answered, pt expressed understanding. Related to Schizophrenia, unspecified type Pt completed UA on that was in normal limits. Reports sxs have resolved. No further testing is advised. Reviewed adequate water intake and importance of emptying bladder routinely. Pt will return to clinic if sxs return. Related to Frequency of micturition DC Flomax Refer to [facility] rologist to [place]Increase fluidsInvega 156 IM shot today continue coping mechanisms DC Depakote 500mg TID and decrease to BIDWent over labs Start Cialis 5mg daily physical good Went over medications Discussed taking own medications that are prescribed only and not sharing medications I reviewed the patient's chart including previous progress notes, lab data and nursing notes. We spoke about the risks and benefits of changes being made in medications, including possible drug/drug interactions and potential side effects. I explained the reason for the changes, i.e. better genetic match, different side effect profile and targeted symptoms. I explained other treatment options available. We also spoke about life style changes, including diet, exercise and substance abuse. 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 Patient will be s een next week for injection, visit, and Depakote, CMP, CBC, Lipid, and HgbA1c along with prolactin level.2. Continue with all medications without change.3. Patient was instructed to hold Depakote and be fasting. He verbalized understanding. Related to Schizophrenia, unspecified type Patient was educated on risks and benefits of medication changes including possible pharmacologic interactions, expectations of efficacy and potential side effects. Reason for medications and/or changes were explained including genetic match, side effect profile, and targeted symptoms. We discussed other options for treatment and lifestyle changes. Pt was instructed to continue treatment plan as discussed today. Pt was educated on signs and symptoms that indicate to return to the clinic or seek emergent care. All pt questions were answered, pt expressed understanding. Related to Schizophrenia, unspecified type Start advair discus 2 times daily. Pt instructed to rinse mouth after each use. Use albuterol inhaler as needed for SOB/cough. Pt educated on signs and symptoms that indicate to return to clinic or seek emergent care. All pt questions were answered. Pt expressed understanding. F/u in 2 months. Related to COPD Patient was educated on risks and benefits of medication changes including possible pharmacologic interactions, expectations of efficacy and potential side effects. Reason for medications and/or changes were explained including genetic match, side effect profile, and targeted symptoms. We discussed other options for treatment and lifestyle changes. Pt was instructed to continue treatment plan as discussed today. Pt was educated on signs and symptoms that indicate to return to the clinic or seek emergent care. All pt questions were answered, pt expressed understanding. Related to Schizophrenia, unspecified type Patient was educated on risks and benefits of medication changes including possible pharmacologic interactions, expectations of efficacy and potential side effects. Reason for medications and/or changes were explained including genetic match, side effect profile, and targeted symptoms. We discussed other options for treatment and lifestyle changes. Pt was instructed to continue treatment plan as discussed today. Pt was educated on signs and symptoms that indicate to return to the clinic or seek emergent care. All pt questions were answered, pt expressed understanding. Related to Schizophrenia, unspecified type Pts HPI, Exam findin gs are most consistent with viral syndrome that I feel I feel is self limiting in nature. has stool cx pending from prior visit. Discussed with pt the expected course, need for close observation and f/u, strict return precautions. Recheck for worsening sx or not improving as discussed FU with PCP one week sooner for worsening symptoms Related to Viral syndrome Follow up in six mon ths. Pt appears to be malingering. Pt Repeatedly educated and counseled on appropriate paola of ER, EC, and clinic. Pt reports he will continue to go in wherever I can whenever I can . Related to Hospital discharge follow-up Will check stool chitra dies, cont GI mgt and f/u w/PCP as discussed Related to Diarrhea, unspecified type Continue with GI quoc n of care Follow up in six months. Related to Diarrhea, unspecified type Referral to [facility] per pt request. Related to Tremors of nervous system Increase fluids. Follow up as ne eded. Related to Diarrhea, unspecified type Continue with plan o f care. Resources provided. Follow up in six months. Call if questions or concerns. S/S discussed to seek emergent care. Increase fluids. Related to Hospital discharge follow-up Bus passes given. Related to Walt elessness Medications refilled. Related to Urinary frequency [facility] at bedside. Document provided for Viviana Norton. Follow up in six months. Related to Generalized Anxiety Disorder Keep taking your med ications as directedDiet and exercise is garcia to overall healthA variety of fruits and vegetables, decrease salt intake, as well as exercise 30 minutes a majority of the weekCheck your blood pressure occasionallyReturn in 3-6 months for labs and another HTN visit Related to Hypertension Hypertension education Related t o Hypertension Referral for assiste d living per nurse intensive care nurse. Related to Homelessness Xray left foot today will call with results. Related to Left foot pain Resources provided. Education/counseling provided. Transpiration provided. Related to Homelessness Medications refilled. Related to Hypertension Medications refilled. Related to Mixed hyperlipidemia Medications refilled. Related to Generalized Anxiety Disorder We will DC Flomax du e to pt non- complianceReturn as neededReferral to [facility]Call if there are any changes, concerns, ectWe will need to get a UA and Culture- Related to Urinary frequency We are stopping Linh nopril todayRecheck labs in 2 weeks Related to Hyponatremia Diet and exercise is garcia to reduction of cholesterol and maintaining a health lifestyle. Take your medication as directedReturn as discussed for labs and follow up visitReturn sooner as neededIf you have any questions, please call the office. Eat a well Balanced diet low if fats and sugarsPromote physical activity to a majority of the week for at least 20 min per dayEating a health diet with physical activity can help increase your mood and immune system as well as decrease fatigue, pain, and other health benefitshealth weight loss goal is 1-2 lbs/week-Maintain health weight under a BMI under 30% Related to Mixed hyperlipidemia Take your medication as directedAfter a start or change in antidepressant medication, it can take up to 4 weeks to notice the full effectsWe discussed the side effects and projected outcome of starting this medication (patient agreeable to plan)Stop taking the medication if you stat to develop SI or HI, notify someone and either call 911 or [facility] office in 4-6 weeks for an update on how you are feelingReturn to the clinic as neededWe are adding Seroquel at night 50mg for a Mood TrialNo medications changes at this time. Related to Generalized Anxiety Disorder Keep taking your med ications as directedDiet and exercise is garcia to overall healthENCOURAGE WEIGHT REDUCTIONA variety of fruits and vegetables, decrease salt intake, as well as exercise 30 minutes a majority of the weekCheck your blood pressure occasionallyReturn in 3-6 months for labs and another HTN visitWe will start Metoprolol Succ. 50mg dailyStop lisinopril due to Hyponatremia Related to Hypertension Dietary management e ducation, guidance, and counseling Related to Hypertension Patient advised about exercise R elated to Hypertension Weight control education Related to Hypertension Hypertension education Related t o Hypertension Assessments Type Assessment Date No Information Patient Care Teams Name Effective Dates (start - stop) Status Members No Information
[2024-08-12 08:41] VITALS: BP 143/101; BMI 36.0
--- NOTE | 2024-11-10 12:08 | ECG_ITS ---
Passenger Baggage Xpress Test Date: 2024-11-10 Pat Name: Benedicto Amaral Department: Room: Gender: Male Transfer Operator: : 1960 Requested By: Ruddy Neves Order Number: [id number] Endy MD: Aiden Cervantes M.D. Measurements Intervals [place] Rate: 92 P: 65 NV: 183 QRS: 11 QRSD: 89 T: 50 QT: 362 QTc: 450 Interpretive Statements SINUS RHYTHM WITH OCCASIONAL VENTRICULAR PREMATURE COMPLEXES WITH OCCASIONAL SUPRAVENTRICULAR PREMATURE COMPLEXES Compared to ECG 11/05/2024 22:05:20 Sinus tachycardia no longer present Electronically Signed On 11-13-2024 09:08:32 CDT by Aiden Cervantes M.D. [email or web address]
--- NOTE | 2024-11-10 12:08 | XR_ITS ---
WS: [id number] XR chest 1V portable [id number] REASON FOR EXAM: cp FINDINGS: The chest is unchanged compared to 11/05/2024. The heart and mediastinum are normal. Calcified granulomatous disease bilaterally. No acute pulmonary parenchymal or pleural abnormality. Moderate degenerative spondylosis in the mid and lower thoracic spine. XR/XR chest 1V portable [id number] IMPRESSION: Stable chest without acute abnormality.
[2024-11-10 12:11] VITALS: BP 158/97; PULSE 96; RESP 12; TEMP 36.4; O2SAT 94
--- OUTSIDE RECORDS SUMMARY | 2024-11-10 12:13 | XMS_ITS | Data Portability ---
Author Organization [facility] Address [address] [facility] [address] [place] [address] Care Team Providers Care Wireline Operator Name Role Phone CHRISTOPHER ARCOS Primary Care Provider Assessment Encounter Date Assessment Date Assessment LastModified by Organization Details LastModified Time 10/28/2024 10/28/2024 patient here for primary care visit. Forgot one is scheduled. No evaluation today. [email or web address] Not available 10/28/2024 10:01:29 11/04/2024 11/04/2024 We will check routine labs today. Encouraged the patient to eat a well-balanced diet and try to do some form of exercise daily. [email or web address] Not available 11/05/2024 11:54:25 Plan of Treatment Reminders Order Date Submit Date Provider Last Modified By Organization Details Last Modified Time Details Appointments None recorded. Lab hemoglobin A1C/hemoglo bin total, QN, blood 2024 025 [facility], [address] [facility], [facility] [address], [place], [address], 5 11:07:15 CMP, serum or plasma 2024 025 [facility], [address] [facility], [facility] [address], [place], [address], 5 11:47:15 microalbumi n/creatinin e, mass ratio, urine 2024 025 [employer] [facility], [address] [facility] [address], [place], [address], 5 06:21:07 lipid panel, blood 2024 025 [facility], [address], [place], [address], 5 11:47:17 CMP, serum or plasma 2022 023 [facility], [address], [address], [place], [address], 3 11:36:04 lipid panel, blood 2022 023 [facility], [address], [place], [address], 3 11:36:07 CBC 2022 023 [facility], [address] [facility], [place], [address], 3 11:03:45 Referral gastroenter ologist referral 2024 025 [email or web address] 2 Julian So MD, [address] [facility], [address], [place], [address], 5 12:48:38 Procedures None recorded. Surgeries None recorded. Imaging XR, pelvis [address] ([facility]), [address] [place], [address], 5 13:49:33 XR, hip, unilateral [address] ([facility]), [address] [place], [address], 5 13:49:34 XR, knee, 3 view 2024 025 [email or web address] [facility], [address] [place], [address], 13:49:34 Medication Orders lisinopril 20 mg tablet 2022 023 [facility] [place], [address] [place], [address], 09:54:02 Patient TargetsNo targets recorded. Patient InstructionsNo instructions recorded. Reason for Referral Supervisor Gluing Referral for Screening for malignant neoplasm of colon Referring Physician: Christopher Arcos, Family Medicine, Encounter Date: 11/04/2024 Results Created Date Observation Date Name Description Value Unit Range Abnormal Flag Note LastModifiedBy Organization Detail LastModifiedTime 04/02/2004/02/2023 CBC WBC 5.4 x10 4.5-10 .5 Not Available [facility] [address] [facility] [address], [place], [address], 04/02/2023 11:03:45 04/02/20 23 04/02/2023 CBC RBC 5.07 x10 4.30-5 .90 Not Available [facility] [address] [facility] [address], [place], [address], 04/02/2023 11:03:45 04/02/20 23 04/02/2023 CBC HGB 15.4 g/dL 13.5-1 8.0 Not Available [facility] [address] [facility] [address], [place], [address], 04/02/2023 11:03:45 04/02/20 23 04/02/2023 CBC HCT 44.1 % 35.0-6 0.0 Not Available [facility] [address] [facility] [address], [place], [address], 04/02/2023 11:03:45 04/02/20 23 04/02/2023 CBC MCV 86.9 fL 80.0-9 9.9 Not Available [facility] [address] Ela [address] [facility], [place], [address], 04/02/2023 11:03:45 04/02/20 23 04/02/2023 CBC MCH 30.4 pg 27.0-3 2.0 Not Available [facility] [address] [facility], [place], [address], 04/02/2023 11:03:45 04/02/20 23 04/02/2023 CBC MCHC 34.9 g/dL 32.0-3 6.0 Not Available [facility] [address] [facility], [place], [address], 04/02/2023 11:03:45 04/02/20 23 04/02/2023 CBC RDW 14.3 % 11.5-1 4.5 Not Available [facility] [address] [facility], [place], [address], 04/02/2023 11:03:45 04/02/20 23 04/02/2023 CBC plt 208.5 x10 150.0- 451.0 Not Available [facility] [address] [facility], [place], [address], 04/02/2023 11:03:45 04/02/20 23 04/02/2023 CBC lymphocytes % 30.1 % 20.0-5 0.0 Not Available [facility] [address] [facility] [address], [place], [address], 04/02/2023 11:03:45 04/02/20 23 04/02/2023 CBC granulcytes % 52.9 % 30.0-7 0.0 Not Available [facility] [address] [facility], [place], [address], 04/02/2023 11:03:45 04/02/20 23 04/02/2023 CBC monocytes % 10.7 % 2.0-10 .0 high Not Available [facility] [address] [facility] [address], [place], [address], 04/02/2023 11:03:45 04/02/20 23 04/02/2023 CBC granulcytes# 2.8 x10 Not Martina ilable [facility] [address] [facility] [address], [place], [address], 04/02/2023 11:03:45 04/02/20 23 04/02/2023 CBC lymphocytes # 1.6 x10 Not Available [facility] [address] [address], [place], [address], 04/02/2023 11:03:45 04/02/20 23 04/02/2023 CBC monocytes # 0.6 x10 Not Avai lable [facility] [address] [facility] [address], [place], [address], 04/02/2023 11:03:45 04/02/20 23 04/02/2023 CMP (MALE ) glucose 151.0 mg/dL 60.0-9 9.0 high Not Available [facility] [address] [facility] [address], [place], [address], 04/02/2023 11:36:04 04/02/20 23 04/02/2023 CMP (MALE ) BUN (blood urea nitrogen) 20.0 mg/dL 10.0-2 6.0 Not Available [facility] [address] [facility] [address], [place], [address], 04/02/2023 11:36:04 04/02/20 23 04/02/2023 CMP (MALE ) creatinine (serum) 0.9 mg/dL 0.4-1. 5 Not Available [facility] [address], [place], [address], 04/02/2023 11:36:04 04/02/20 23 04/02/2023 CMP (MALE ) BUN/creatini ne ratio 22.22 ratio Not Available [facility] [address], [place], [address], 04/02/2023 11:36:04 04/02/20 23 04/02/2023 CMP (MALE ) eGFR calculated 91.2 Not Available [facility] [address], [place], [address], 04/02/2023 11:36:04 04/02/20 23 04/02/2023 CMP (MALE ) total protein 7.1 g/dL 6.0-8. 5 Not Available [facility] [address], [place], [address], 04/02/2023 11:36:04 04/02/20 23 04/02/2023 CMP (MALE ) total bilirubin 0.6 mg/dL 0.2-1. 3 Not Available [facility] [address], [place], [address], 04/02/2023 11:36:04 04/02/20 23 04/02/2023 CMP (MALE ) albumin 4.1 g/dL 3.5-5. 5 Not Available [facility] [address], [place], [address], 04/02/2023 11:36:04 04/02/20 23 04/02/2023 CMP (MALE ) globulin 3.0 calc Not Available [facility] [address], [place], [address], 04/02/2023 11:36:04 11/20/04/02/2023 CMP (MALE ) AST (SGOT) 46.0 U/L 0.0-46 .0 Not Available [facility] [address] [facility] [address], [place], [address], 04/02/2023 11:36:04 04/02/20 23 04/02/2023 CMP (MALE ) altv (SGPT) 68.0 U/L 13.0-6 9.0 normal Not Available [facility] [address] [facility] [address], [place], [address], 04/02/2023 11:36:04 04/02/20 23 04/02/2023 CMP (MALE ) A/G ratio 1.4 ratio Not Available [facility] [address] [facility] [address], [place], [address], 04/02/2023 11:36:04 04/02/20 23 04/02/2023 CMP (MALE ) ALP phos 74.0 U/L 30.0-1 40.0 normal Not Available [facility] [address] [facility] [address], [place], [address], 04/02/2023 11:36:04 04/02/20 23 04/02/2023 CMP (MALE ) calcium 9.6 mg/dL 8.4-10 .5 Not Available [facility] [address] [facility] [address], [place], [address], 04/02/2023 11:36:04 04/02/20 23 04/02/2023 CMP (MALE ) sodium 133.0 mmol/ L 136.0- 145.0 low Not Available [facility] [address] [facility] [address], [place], [address], 04/02/2023 11:36:04 04/02/20 23 04/02/2023 CMP (MALE ) potassium 4.5 mmol/ L 3.5-5. 1 Not Available [facility] [address] [facility], [place], [address], 04/02/2023 11:36:04 04/02/20 23 04/02/2023 CMP (MALE ) chloride 99.0 mmol/ L 98.0-1 10.0 normal Not Available [facility] [address] [facility], [place], [address], 04/02/2023 11:36:04 04/02/20 23 04/02/2023 CMP (MALE ) C02 29.0 mmol/ L 22.0-3 1.0 Not Available [facility] [address] [facility] [address], [place], [address], 04/02/2023 11:36:04 04/02/20 23 04/02/2023 CMP (MALE ) anion gap 5.0 calc Not Available [facility] [address] [facility] [address], [place], [address], 04/02/2023 11:36:04 04/02/20 23 04/02/2023 CMP (MALE ) osmolality 280.2 calc Not Available [facility] [address] [facility], [place], [address], 04/02/2023 11:36:04 04/02/20 23 04/02/2023 LIPID PROFI LE (MALE ) cholesterol 271.0 mg/dL 0.0-20 0.0 high Not Available [facility] [address] [facility], [place], [address], 04/02/2023 11:36:07 04/02/20 23 04/02/2023 LIPID PROFI LE (MALE ) trig 505.0 mg/dL 0.0-15 0.0 high Not Available [facility] [address] [facility], [place], [address], 04/02/2023 11:36:07 04/02/20 23 04/02/2023 LIPID PROFI LE (MALE ) HDL - direct 32.0 mg/dL >40.0 low Not Available [facility] [address] [facility] [address], [place], [address], 04/02/2023 11:36:07 04/02/20 23 04/02/2023 LIPID PROFI LE (MALE ) VLDL - direct 101.0 mg/dL Not Available [facility] [address] [facility] [address], [place], [address], 04/02/2023 11:36:07 04/02/20 23 04/02/2023 LIPID PROFI LE (MALE ) LDL - direct 138.0 mg/dL 0.0-13 0.0 high Not Available [facility] [address] [facility] [address], [place], [address], 04/02/2023 11:36:07 11/05/19 25 11/04/2024 HBA1C hemaglobin A1C 6.3 4.2-6. 5 Not Available [facility] [address] [address], [place], [address], 11/04/2024 11:07:15 11/05/19 25 11/04/2024 CMP (MALE ) glucose 105.0 mg/dL 60.0-9 9.0 high Not Available [facility] [address] [facility] [address], [place], [address], 11/04/2024 11:47:15 11/05/19 25 11/04/2024 CMP (MALE ) BUN (blood urea nitrogen) 16.0 mg/dL 10.0-2 6.0 Not Available [facility] [address] [facility] [address], [place], [address], 11/04/2024 11:47:15 11/05/19 25 11/04/2024 CMP (MALE ) creatinine (serum) 0.8 mg/dL 0.4-1. 5 Not Available [facility] [address] [address] [facility], [place], [address], 11/04/2024 11:47:15 11/05/19 25 11/04/2024 CMP (MALE ) BUN/creatini ne ratio 20.00 ratio Not Available [facility] [address] [facility], [place], [address], 11/04/2024 11:47:15 11/05/19 25 11/04/2024 CMP (MALE ) eGFR calculated 104.1 Not Available [facility] [address] [facility], [place], [address], 11/04/2024 11:47:15 11/05/19 25 11/04/2024 CMP (MALE ) total protein 6.5 g/dL 6.0-8. 5 Not Available [facility] [address] [facility], [place], [address], 11/04/2024 11:47:15 11/05/19 25 11/04/2024 CMP (MALE ) total bilirubin 0.9 mg/dL 0.2-1. 3 Not Available [facility] [address] [facility], [place], [address], 11/04/2024 11:47:15 11/05/19 25 11/04/2024 CMP (MALE ) albumin 3.8 g/dL 3.5-5. 5 Not Available [facility] [address] [facility], [place], [address], 11/04/2024 11:47:15 11/05/19 25 11/04/2024 CMP (MALE ) globulin 2.7 calc Not Available [facility] [address] [facility], [place], [address], 11/04/2024 11:47:15 11/05/19 25 11/04/2024 CMP (MALE ) AST (SGOT) 25.0 U/L 0.0-46 .0 Not Available [facility] [address] [facility] [address], [place], [address], 11/04/2024 11:47:15 11/05/19 25 11/04/2024 CMP (MALE ) altv (SGPT) 16.0 U/L 13.0-6 9.0 normal Not Available [facility] [address] [facility] [address], [place], [address], 11/04/2024 11:47:15 11/05/19 25 11/04/2024 CMP (MALE ) A/G ratio 1.4 ratio Not Available [facility] [address] [address], [place], [address], 11/04/2024 11:47:15 11/05/19 25 11/04/2024 CMP (MALE ) ALP phos 71.0 U/L 30.0-1 40.0 normal Not Available [facility] [address] [address], [place], [address], 11/04/2024 11:47:15 11/05/19 25 11/04/2024 CMP (MALE ) calcium 8.6 mg/dL 8.4-10 .5 Not Available [facility] [address] [facility] [address], [place], [address], 11/04/2024 11:47:15 11/05/19 25 11/04/2024 CMP (MALE ) sodium 127.0 mmol/ L 136.0- 145.0 low Not Available [facility] [address] [facility] [address], [place], [address], 11/04/2024 11:47:15 11/05/19 25 11/04/2024 CMP (MALE ) potassium 3.9 mmol/ L 3.5-5. 1 Not Available [facility] [address] [facility], [place], [address], 11/04/2024 11:47:15 11/05/19 25 11/04/2024 CMP (MALE ) chloride 91.0 mmol/ L 98.0-1 10.0 abnormal Not Available [facility] [address] [facility] [address], [place], [address], 11/04/2024 11:47:15 11/05/19 25 11/04/2024 CMP (MALE ) C02 31.0 mmol/ L 22.0-3 1.0 Not Available [facility] [address] [facility], [place], [address], 11/04/2024 11:47:15 11/05/19 25 11/04/2024 CMP (MALE ) anion gap 5.0 calc Not Available [facility] [address] [facility] [address], [place], [address], 11/04/2024 11:47:15 11/05/19 25 11/04/2024 CMP (MALE ) osmolality 264.6 calc Not Available [facility] [address] [facility] [address], [place], [address], 11/04/2024 11:47:15 11/05/19 25 11/04/2024 LIPID PROFI LE (MALE ) cholesterol 122.0 mg/dL 0.0-20 0.0 Not Available [facility] [address] [facility], [place], [address], 11/04/2024 11:47:17 11/05/19 25 11/04/2024 LIPID PROFI LE (MALE ) trig 188.0 mg/dL 0.0-15 0.0 high Not Available [facility] [address] [facility] [address], [place], [address], 11/04/2024 11:47:17 11/05/19 25 11/04/2024 LIPID PROFI LE (MALE ) HDL - direct 29.0 mg/dL >40.0 low Not Available [facility] [address] [facility] [address], [place], [address], 11/04/2024 11:47:17 11/05/19 25 11/04/2024 LIPID PROFI LE (MALE ) VLDL - direct 37.6 mg/dL Not Available [facility] [address] [facility] [address], [place], [address], 11/04/2024 11:47:17 11/05/19 25 11/04/2024 LIPID PROFI LE (MALE ) LDL - direct 55.4 mg/dL 0.0-13 0.0 Not Available [facility] [address] [facility] [address], [place], [address], 11/04/2024 11:47:17 11/05/19 25 11/05/2024 ALBUM IN, RANDO M URINE W/CRE ATINI NE creatinine, random urine 147 mg/dL 20-320 normal Not Available [facility] [address] [place], [address], 11/05/2024 06:21:07 11/05/1911/05/2024 ALBUM IN, RANDO M URINE W/CRE ATINI NE albumin, urine 0.6 mg/dL see note: normal Refer ence Range : Refer ence Range Not estab lishe d Not Available [facility] [address] [place], [address], 11/05/2024 06:21:07 11/05/1911/05/2024 ALBUM IN, RANDO M URINE W/CRE ATINI NE albumin/crea tinine ratio, random urine 4 mg/g_ creat <30 normal The ADA defin es abnor malit ies in album in excre tion as follo ws: Album inuri a Categ ory Resul t (mg/g creat inine ) Layne l to Mildl y incre ased <30 Moder ately incre ased 30-29 9 Sever tommy incre ased > OR = 300 The ADA recom mends that at least two of three speci mens colle cted withi n a 3-6 month perio d be abnor mal befor e consi alexsandra g a patie nt to be withi n a diagn ostic categ ory. Not Available [facility] [address] [place], [address], 11/05/2024 06:21:07 10/25/19 25 10/23/2024 XR, pelvi s No observ ation record ed. [facility] [address] [place], [address], 10/26/2024 11:36:09 10/25/19 25 10/23/2024 XR, hip, unila teral No observ ation record ed. [facility] [address] [place], [address], 10/26/2024 11:36:10 10/25/19 25 10/23/2024 XR, knee, 3 view No observ ation record ed. [facility] [address] [place], [address], 10/26/2024 11:36:10 Result Notes None recorded. Problems Name Problem SNOMED Code Status Onset Date Resolution Date Notes Provider Name and Address Organization Details Recorded Time Psychotic disorder 98238132 Active 2022 REGI agustin [facility] 3 11:37:18 Parkinson's disease 10400132 Active 2022 REGI agustin [facility] 3 11:37:18 Benign prostatic hyperplasia 968225675 Active 2022 REGI agustin [facility] 3 11:37:18 Bipolar disorder 63423474 Active 2022 REGI ALF agustin [facility] 3 11:37:17 Lower urinary tract symptoms due to benign prostatic hypertrophy 1386455872422 1 Active 2022 REGI ALF agustin [facility] 3 11:37:18 Essential hypertensio n 27893188 Active 2022 REGI CHENEdilberto agustin, [facility] 3 11:37:18 History of myocardial infarction 320644342 Active 2022 REGI agustin, [facility] 3 11:37:18 Schizophren ia 80925521 Active 2022 REGI agustin [facility] 3 16:42:51 Hyperglycem ia 60445952 Active 2022 REGI agustin, [facility] 3 16:43:01 Allergic rhinitis 29570640 Active 2022 REGI agustin, [facility] 3 16:42:56 Acquired hearing loss 495065750 Active 2022 REGI agustin, [facility] 3 16:42:48 Hyperlipide tyler 60619052 Active 2022 Christopher Arcos MD [address] [place], [address], [facility] 3 10:13:33 Fear of heights 567544207 Active 2022 Christopher Arcos MD [address] [place], [address], [facility] 3 10:13:55 Contusion of left knee 2747699085857 9109 Active 2024 Christopher Arcos MD [address] [place] [address], [address], [facility] 5 18:55:08 Type 2 diabetes mellitus 20502029 Active 2024 Christopher Arcos MD [address] [place] [address], [phone], [facility] 5 10:19:33 Generalized anxiety disorder 90278502 Active 2024 Christopher Arcos MD [address] [place] [address], [address], [facility] 5 11:54:36 Problem Notes None recorded. Medical Equipment None Reported. Allergies Allergen ID Allergen Name Allergen Category Reaction Reaction Severity Criticality Documentation Date Start Date Code Code System Note Provider Name and Address Organization Details Recorded Time 4597 Product containin g penicilli n (product) medicatio n Not available Not available Not available 11/01/2022 52230 8001 SNOMED REGI agustin [facility] 3 10:01:00 4598 Oxycontin medicatio n Not available Not available Not available 11/01/2022 06591 6 RxNorm REGI MILNER nikole [facility] 3 10:01:10 19542 lithium Not available Not available Not available Not available 04/02/2023 6448 RxNorm CAMILLE agustin [facility] 3 09:45:23 Medications Name Sig Start Date Stop Date Status Note LastModified by Organization Details LastModified Time metformin 500 mg tablet TAKE ONE TABLET BY MOUTH TWICE DAILY active Not Available Not Available No t Available cetirizine 10 mg tablet Take 1 tablet every day by oral route. active Not Available Not Available No t Available lisinopril 20 mg tablet Take 1 tablet every day by oral route. 10/17 completed Not Available Not Available Not Available simvastatin 40 mg tablet TAKE 1 TABLET BY MOUTH AT BEDTIME active Not Available Not Available No t Available lorazepam 0.5 mg tablet TAKE 1 TABLET BY MOUTH TWICE A DAY active Not Available Not Available No t Available cephalexin 500 mg capsule take 1 capsule BY MOUTH EVERY 6 HOURS active Not Available Not Available No t Available simvastatin 20 mg tablet take ONE tablet BY MOUTH ONCE DAILY 10/17 completed Not Available Not Available Not Available divalproex ER 500 mg tablet,exte nded release 24 hr Take 1 tablet twice a day by oral route. active Not Available Not Available No t Available haloperidol 10 mg tablet TAKE 1 TABLET BY MOUTH TWICE A DAY active Not Available Not Available No t Available losartan 25 mg tablet TAKE 1 TABLET BY MOUTH DAILY active Not Available Not Available No t Available benztropine 2 mg tablet TAKE 1 TABLET BY MOUTH TWICE DAILY 10/17 completed Not Available Not Available Not Available magnesium citrate oral solution drink ONE bottle at 12pm and other bottle at 8pm FOR colonosco py 11/05 completed Not Available Not Available Not Available bisacodyl 5 mg tablet,dayana yed release TAKE 1 TABLET BY MOUTH DAILY FOR 2 DAYS 11/05 completed Not Available Not Available Not Available metoprolol succinate ER 25 mg tablet,exte nded release 24 hr TAKE ONE TABLET BY MOUTH TWICE DAILY 10/17 completed Not Available Not Available Not Available metformin ER 500 mg tablet,exte nded release 24 hr TAKE 2 TABLETS BY MOUTH EVERY MORNING and ONE EVERY EVENING 11/05 completed Not Available Not Available Not Available risperidone 1 mg tablet Take 1 tablet twice a day by oral route. active Not Available Not Available No t Available divalproex ER 250 mg tablet,exte nded release 24 hr TAKE 3 TABLETS BY MOUTH FOR 30 DAYS AT 7 PM 11/05 completed Not Available Not Available Not Available metoprolol tartrate 25 mg tablet TAKE 1 TABLET BY MOUTH TWICE A DAY active Not Available Not Available No t Available eszopiclone 3 mg tablet Take 1 tablet every day by oral route at bedtime. active Not Available Not Available No t Available sodium chloride 1,000 mg soluble tablet TAKE 1 TABLET BY MOUTH TWICE A DAY WITH MEALS active Not Available Not Available No t Available Januvia 50 mg tablet TAKE 1 TABLET BY MOUTH EVERY DAY 11/04 completed Not Available Not Available Not Available Januvia 100 mg tablet TAKE 1 TABLET BY MOUTH EVERY DAY 11/04 completed Not Available Not Available Not Available paliperidon e ER 3 mg tablet,exte nded release 24 hr TAKE 1 TABLET BY MOUTH EVERY MORNING active Not Available Not Available No t Available GaviLyte-G 236 gram-22.74 gram-6.74 gram-5.86 gram oral solution drink 240ml every 10 minutes UNTIL fecal effluent is CLEAR 11/05 completed Not Available Not Available Not Available Invega Sustenna 156 mg/mL intramuscul ar syringe inject 156mg INTRAMUSC ULARLY EVERY 28 DAYS 11/05 completed Not Available Not Available Not Available Invega Sustenna 234 mg/1.5 mL intramuscul ar syringe inject 234mg (1.5ml) INTRAMUSC ULARLY every 30 DAYS. due immediate ly THEN every 28 DAYS active Not Available Not Available No t Available Flonase Allergy Relief 50 mcg/actuati on nasal spray,suspe nsion [place] 1 spray every day by intranasa l route. 10/17 completed Not Available Not Available Not Available Vitals Date Recorded Body height Body mass index (BMI) Body weight Provider Name and Address Organization Details Last Updated DateTime 10/17/2024 180.34 cm 32.4 kg/m2 022479.43 g [facility] 10/17/2024 09:53:02 Date Recorded Body height Body mass index (BMI) Body weight Oxygen saturation Oxygen saturation in Arterial blood by Pulse oximetry Heart rate Respiratory rate Body temperature Systolic blood pressure Diastolic blood pressure Provider Name and Address Organization Details Last Updated DateTime 180.34 cm 32.1 kg/m2 580645. 25 g 97 % 97 % 105 /min 18 /min 98.2 [degF] 140 mm[Hg] 90 mm[Hg] [facility] 10:51:14 Date Recorded Body height Body mass index (BMI) Body weight Body temperature Oxygen saturation Oxygen saturation in Arterial blood by Pulse oximetry Heart rate Systolic blood pressure Diastolic blood pressure Provider Name and Address Organization Details Last Updated DateTime 5 180.34 cm 33.5 kg/m2 370737. 17 g 97.6 [degF] 94 % 94 % 103 /min 144 mm[Hg] 78 mm[Hg] Renetta Herbert [facility] 5 09:20:19 Date Recorded Body height Body mass index (BMI) Body weight Body temperature Oxygen saturation Oxygen saturation in Arterial blood by Pulse oximetry Heart rate Systolic blood pressure Diastolic blood pressure Provider Name and Address Organization Details Last Updated DateTime 3 180.34 cm 35.9 kg/m2 252668. 04 g 97.5 [degF] 95 % 95 % 105 /min 150 mm[Hg] 86 mm[Hg] CAMILLE WARD [facility] 3 09:45:10 Social History Question Answer Notes LastModified by HCI Details LastModified Time Tobacco Smoking Status Former Smoker SHARONAROSSY HERNANDEZY [facility] 04/02/2023 09:47:08 What Is Your Level Of Caffeine Consumption? Occasional Information not available 04/02/2023 What Was The Date Of Your Most Recent Tobacco Screening? 11/04/2024 [email or web address] Information not available 11/04/2024 What Is Your Relationship Status? Information not available 04/02/2023 Sex: Unknown Functional Status Question Answer Note LastModified by HCI Details LastModified Time What is your level of alcohol consumption? Occasional Information not available 04/02/2023 Are you currently employed? No Information not available 04/02/2023 Are you able to walk? YESWOREST Information [...] 100 mcg/0.5mL dose or 50 mcg/0.25mL dose 2 completed REGI agustin, [facility] 02/04/2023 16:43:22 COVID-19, mRNA, LNP-S, bivalent, PF, 30 mcg/0.3 mL dose 2 completed REGI agustin, [facility] 02/04/2023 16:43:22 influenza, unspecified formulation 5 completed REGI agustin, [facility] 02/04/2023 16:43:22 Tdap 6 completed REGI agustin, [facility] 02/04/2023 16:43:22 Tdap 2 completed REGI agustin, [facility] 02/04/2023 16:43:22 Tdap 2 completed REGI agustin, [facility] 02/04/2023 16:43:22 Influenza, split virus, trivalent, PF 7 completed REGI agustin, [facility] 02/04/2023 16:43:22 Hep A, adult 9 completed REGI agustin, [facility] 02/04/2023 16:43:22 Hep A, adult 9 completed REGI MILNER null, [facility] 02/04/2023 16:43:22 Influenza, split virus, quadrivalent, PF 9 completed REGI agustin, [facility] 02/04/2023 16:43:22 Influenza, split virus, quadrivalent, PF 9 completed REGI MILNER null, [facility] 02/04/2023 16:43:22 Influenza, split virus, quadrivalent, PF 2 completed REGI agustin [facility] 02/04/2023 16:43:22 COVID-19, mRNA, LNP-S, PF, 50 mcg/0.5 mL 3 completed REGI agustin [facility] 06/01/2023 19:12:57 Influenza, recombinant, trivalent, PF 4 completed Not Available [facility] 11/04/2024 09:06:27 Influenza, split virus, quadrivalent, PF 3 completed REGI agustin [facility] 02/05/2023 11:06:09 Past Encounters Encounter ID Performer Location Encounter Start Date Encounter Closed Date Diagnosis/Indication Diagnosis SNOMED-CT Code Diagnosis ICD10 Code Diagnosis Note [id number] Christopher Arcos MD [facility] ([facility]) [address] [place] [address] [phone] 11/01/2022 09:45:19 11/01/2022 12:47:18 Lower urinary tract symptoms due to benign prostatic hypertrophy 1921378433 9101 N40.1 Parkinson's disease 4904 9000 G20 Psychotic disorder 64156 001 F29 Bipolar disorder 0261922 4 F31.9 Essential hypertension 65369192 I10 History of myocardial infarction 880474053 I25.2 [id number] Christopher Arcos MD [facility] ([facility]) [address] [place] [address] [id number] 5 12/20/2022 09:35:24 12/20/2022 10:38:21 Essential hypertension 41853300 I10 Benign pro static hyperplasia 391349867 N40.1 Schizophrenia 67947803 F 20.9 Bipolar disorder 2738906 4 F31.9 Hyperglycemia 46614024 R 73.9 Allergic rhinitis 812204 04 J30.9 Acquired hearing loss 72 7146025 H91.90 [id number] Christopher Arcos MD [facility] ([facility]) [address] [place] [address] [id number] 02/05/2023 09:36:55 02/05/2023 10:48:47 Benign prostatic hyperplasia 739284269 N40.1 Patient is awaiting urology evaluation and treatment. Essential hypertension 80756785 I10 Blood pressure is mildly elevated today.. Patient will monitor blood pressure and report if unable to control or if they develop new symptoms. Schizophrenia 25055846 F 20.9 Patient is doing well on current medication s. Continue follow-ups with psychiatry [id number] Christopher Arcos MD [facility] ([facility]) [address] [place] [address] [id number] 5 04/02/2023 09:37:06 04/02/2023 15:33:03 Adult health examination 726714159 Z00.00 We will check labs today. Patient has been having some glucose issues. Patient was encouraged to eat a well-terrell isaias diet and exercise 30 minutes daily. Essential hypertension 88693331 I10 Pressure not well controlled . Start lisinopril . Patient was encouraged to have his blood pressure checked routinely. Hyperlipidemia 65869055 E78.5 Fear of heights 80487231 1 F40.241 We will provide a letter stating that he has fair hygiene to consider weaning him to a lower level apartment if available. [id number] JAY RAMSEY [facility] ([facility]) [address] [place] [address] [id number] 5 10/17/2024 09:47:49 10/17/2024 11:03:51 [id number] Christopher Arcos MD [facility] ([facility]) [address] [place] [address] [id number] 5 10/23/2024 10:42:36 10/24/2024 13:49:33 Fall 0058331 W19.XXXA Trays were obtained of the pelvis, hip, and knee and reviewed by me. No evidence of fracture. The patient does have significan t degenerati ve changes noted within his back. Mild arthritis. Contusion of left knee 8186966503 1678973 S80.02XA The patient does have evidence of significan t contusion and bleeding under the skin. Encouraged the patient to continue ambulating and mobilizing . Follow-up if symptoms do not improve. [id number] JAY PETER [facility] ([facility]) [address] [place] [address] 10/28/2024 09:40:33 10/28/2024 10:18:07 [id number] Christopher Arcos MD [facility] ([facility]) [address] [place] [address] 11/04/2024 09:06:09 11/04/2024 10:34:47 At increased risk for falls 330457620 Z91.81 Does have increased risk for falls and has fallen at his apartment recently. Patient would benefit from assistive devices, however insurance will not pay for wheelchair , rollator, and cane. Feels that he would mostly benefit from rollator and will send her order over to part of the [employer] medical equipment for this device. Also has increased risk for falls especially in the shower so a shower chair would be appropriat e. Type 2 tho betes mellitus 53777548 E11.9 Z79.4 Patient reports a history of type 2 diabetes and is struggling with administer ing his insulin. Will check labs today. We do not have any insulin listed on his current med list, so we will contact his pharmacy to try to get updated med list. Patient was encouraged to bring his medication s to the clinic so that an accurate list can be made. Essential hypertension 80404645 I10 Pressure not well controlled . Start lisinopril . Patient was encouraged to have his blood pressure checked routinely. Schizophrenia 22431040 F 20.9 Patient needs to continue to follow with psychiatry . Will try to find what medication he was placed on during his recent inpatient psych admission. Hyperlipidemia 21914219 E78.5 Screening for malignant neoplasm of colon 065692095 Z12.11 Will send referral to GI for colon cancer screening. Generalize d anxiety disorder 42772145 F41.1 Health Concerns Section Related Observation LastModified by Organization Detai ls LastModified Time None Recorded Concern Status LastModified by Organization Details LastModified Time None Recorded Advance Directives Directive None Recorded Payers Insurance Date Sequence Insurance Name Policy Number Policy Franklin Covered Member ID [place] Member ID Guarantor Name 10/17/2024 [place] [facility] Benedicto Amaral [id number] Benedicto Amaral 11/07/2024 1 [facility] [place] DV[place] - [place]MO) Benedicto Cháveznikk [id number] Benedicto Mcdonald Cristin 10/17/2024 1 [place] - [place] [id number] Benedicto Amaral [id number] Benedicto Mcdonald Cristin 10/17/2024 2 [place] Benedicto Chávezhcuy [id number] Benedicto Mcdonald Cristin Notes Date Note Type Note Provider Name and Address Organization Details Recorded Time 04/02/2023 text/html Get concernThijeremi is a 63-year-old gentleman that comes in [...] underlying mental health issues. Christopher Arcos MD [address] [place] [address], [phone], [facility] 04/02/2023 15:38:37 10/23/2024 text/html [facility] hip pain, and left knee pain after a fell he thinks it was weeks ago. Christopher Arcos MD [address] [place] [address], [phone], [facility] 10/24/2024 11:26:50 11/04/2024 text/html Annual WellnessReported bypatient.Diet and Nutrition:high caloric intake;high carbohydrate meals Fracture Risk:no history of fractures Physical Activity:poor physical condition;deconditione d due to sedentary lifestyle; Pt states he stretches Additional Lifestyle Factors:no tobacco use; drinks alcohol (mild-moderate) Depression Risk:no loss of interest in activities; no significant changes in weight; no loss of energy;feels sad, empty, or tearful;sleep disturbances or insomnia;agitated;feel ings of worthlessness or guilt;thoughts of suicide;history of depression Hearing:loss of hearing: in both ears Vision:worsening This is a 64 year old man establishing care: He would like an order for a shower chair, rollator with seat, and cane for his unsteady and weakness. Pt states he fell a few weeks prior at his place of living, [facility]. He would like to go to a rehabilitation facility to over see his medications ( does not know how to self administer his insulin or check his blood sugar), diet, exercise, and activities. He does not want to be in a lock down unit. He wants to be able to come and go as he pleases. He would like to stay at a rehab 1 year max. Pt believes he has cancer and would like to be tested. He does not know what kind but his family history is significant enough for him to believe he may have it also. Patient also has a significant history of mental health issues and recent spent hospital time in a psych facility at [facility]. Patient states that they started him on new medications but he does not recall what they were. Christopher Arcos MD [address] [place] [address], [phone], [facility], LPhilip 11/05/2024 11:55:05
--- OUTSIDE RECORDS SUMMARY | 2024-11-10 12:13 | XMS_ITS | Continuity of Care Document ---
Author Organization FACUNDO [facility] Avni Cantrell, [facility] ([facility]) Address [address] [place] [address] Care Team Providers Care Hazardous Materials Analyst Name Role Phone CHRISTOPHER ARCOS Primary Care Provider Assessment Encounter Date Assessment Date Assessment LastModified by Organization Details LastModified Time 11/04/2024 11/04/2024 We will check routine labs today. Encouraged the patient to eat a well-balanced diet and try to do some form of exercise daily. [email or web address] Not available 11/05/2024 11:54:25 Plan of Treatment Reminders Order Date Submit Date Provider Last Modified By Organization Details Last Modified Time Details Appointments None recorded. Lab hemoglobin A1C/hemoglo bin total, QN, blood 2024 025 [facility], [address], [place], [address], 11:07:15 CMP, serum or plasma 2024 025 [facility], [address], [place], [address], 5 11:47:15 microalbumi n/creatinin e, mass ratio, urine 2024 025 [facility], [address] [place], [address], 06:21:07 lipid panel, blood 2024 025 [facility], [address], [place], [address], 11:47:17 Referral gastroenter ologist referral 2024 025 [email or web address] 2 Julian oS MD, [address], [place], [address], 12:48:38 Procedures None recorded. Surgeries None recorded. Imaging None recorded. Medication Orders None recorded. Patient TargetsNo targets recorded. Patient InstructionsNo instructions recorded. Reason for Referral Publicity Consultant Referral for Screening for malignant neoplasm of colon Referring Physician: Christopher Arcos, Family Medicine, Encounter Date: 11/04/2024 Results Created Date Observation Date Name Description Value Unit Range Abnormal Flag Note LastModifiedBy Organization Detail LastModifiedTime 10/25/1910/23/2024 XR, pelvi s No observ ation [facility] [address] [place], [address], 10/26/2024 11:36:09 10/25/19 25 10/23/2024 XR, hip, unila teral No observ ation record ed. [facility] [address] [place], [address], 10/26/2024 11:36:10 10/25/19 25 10/23/2024 XR, knee, 3 view No observ ation record ed. [facility] [address] [place], [address], 10/26/2024 11:36:10 Result Notes None recorded. Problems Name Problem SNOMED Code Status Onset Date Resolution Date Notes Provider Name and Address Organization Details Recorded Time Psychotic disorder 10904675 Active 2022 FACUNDO Ca [facility], LPhilip 11:37:18 Parkinson's disease 19669914 Active 2022 REGI agustin, [facility] 3 11:37:18 Benign prostatic hyperplasia 168632483 Active 2022 REGI agustin, [facility] 3 11:37:18 Bipolar disorder 23662791 Active 2022 REGI agustin, [facility] 3 11:37:17 Lower urinary tract symptoms due to benign prostatic hypertrophy 3368572714388 1 Active 2022 REGI CHENEdilberto agustin, [facility] 3 11:37:18 Essential hypertensio n 31659651 Active 2022 REGI CHENEdilberto agustin [facility] 3 11:37:18 History of myocardial infarction 894848657 Active 2022 REGI agustin, [facility] 3 11:37:18 Schizophren ia 50474510 Active 2022 REGI agustin, [facility] 3 16:42:51 Hyperglycem ia 03059574 Active 2022 REGI CHENEdilberto agustin, [facility] 3 16:43:01 Allergic rhinitis 74256253 Active 2022 REGI CHENEdilberto agustin, [facility] 3 16:42:56 Acquired hearing loss 472437270 Active 2022 REGI CHENEdilberto agustin, [facility] 3 16:42:48 Hyperlipide tyler 24456636 Active 2022 Christopher Arcos MD [address] [place] [address], [phone], [facility]son 3 10:13:33 Fear of heights 112297953 Active 2022 Christopher Arcos MD [address] [place] [address], [phone] 5, [facility].L[facility]son 3 10:13:55 Contusion of left knee 5478820147704 9109 Active 2024 Christopher Arcos MD [address] [place] [address], [phone] 5, [facility], Uma.L.CAnson 5 18:55:08 Type 2 diabetes mellitus 94429342 Active 2024 Christopher Arcos MD [address] [place] [address], [phone], [facility], GilmarLAnsonCAnson 5 10:19:33 Generalized anxiety disorder 92451212 Active 2024 Christopher Arcos MD [address] [place] [address], [phone], [facility], GilmarLAnsonCAnson 5 11:54:36 Problem Notes None recorded. Medical Equipment None Reported. Allergies Allergen ID Allergen Name Allergen Category Reaction Reaction Severity Criticality Documentation Date Start Date Code Code System Note Provider Name and Address Organization Details Recorded Time 4597 Product containin g penicilli n (product) medicatio n Not available Not available Not available 11/01/2022 96738 8001 SNOMED REGI agustin [facility] 3 10:01:00 4598 Oxycontin medicatio n Not available Not available Not available 11/01/2022 59034 6 RxNorm REGI agustin [facility] 3 10:01:10 88710 lithium Not available Not available Not available Not available 04/02/2023 6448 RxNorm [facility]LE [facility] 09:45:23 Medications Name Sig Start Date [...] Relief 50 mcg/actuati on nasal spray,suspe nsion [place] 1 spray every day by intranasa l route. 10/17 completed Not Available Not Available Not Available Vitals Date Recorded Body height Body mass index (BMI) Body weight Body temperature Oxygen saturation Oxygen saturation in Arterial blood by Pulse oximetry Heart rate Systolic blood pressure Diastolic blood pressure Provider Name and Address Organization Details Last Updated DateTime 5 180.34 cm 33.5 kg/m2 748469. 17 g 97.6 [degF] 94 % 94 % 103 /min 144 mm[Hg] 78 mm[Hg] Renetta Herbert [facility]son 5 09:20:19 Social History Question Answer Notes LastModified by Organizat ion Details LastModified Time Tobacco Smoking Status Former Smoker CAMILLE agustin [facility] 04/02/2023 09:47:08 What Is Your Level Of Caffeine Consumption? Occasional Information not available 04/02/2023 What Was The Date Of Your Most Recent Tobacco Screening? 11/04/2024 [email or web address] Information not available 11/04/2024 What Is Your Relationship Status? Information not available 04/02/2023 Sex: Unknown Functional Status Question Answer Note LastModified by Organizat ion Details LastModified Time What is your level [...] or 50 mcg/0.25mL dose 2 completed REGI agustin [facility], LAnsonLAnsonCAnson 02/04/2023 16:43:22 COVID-19, mRNA, LNP-S, bivalent, PF, 30 mcg/0.3 mL dose 2 completed REGI agustin [facility], GilmarLAnsonCAnson 02/04/2023 16:43:22 influenza, unspecified formulation 5 completed REGI agustin [facility], LAnsonLAnsonCAnson 02/04/2023 16:43:22 Tdap 6 completed REGI agustin [facility] L.LAnsonCAnson 02/04/2023 16:43:22 Tdap 2 completed REGI agustin [facility], GilmarLAnsonCAnson 02/04/2023 16:43:22 Tdap 2 completed REGI CHENG null, [facility] 02/04/2023 16:43:22 Influenza, split virus, trivalent, PF 7 completed REGI CHENG null, [facility] 02/04/2023 16:43:22 Hep A, adult 9 completed REGI ALF null, [facility] 02/04/2023 16:43:22 Hep A, adult 9 completed REGI ALF null, [facility] 02/04/2023 16:43:22 Influenza, split virus, quadrivalent, PF 9 completed REGI CHENG null, [facility] 02/04/2023 16:43:22 Influenza, split virus, quadrivalent, PF 9 completed REGI CHENG null, [facility] 02/04/2023 16:43:22 Influenza, split virus, quadrivalent, PF 2 completed REGI MILNER null, [facility] 02/04/2023 16:43:22 COVID-19, mRNA, LNP-S, PF, 50 mcg/0.5 mL 3 completed REGI agustin, [facility] 06/01/2023 19:12:57 Influenza, recombinant, trivalent, PF 4 completed Not Available [facility] 11/04/2024 09:06:27 Influenza, split virus, quadrivalent, PF 3 completed REGI MILNER null, [facility] 02/05/2023 11:06:09 Past Encounters Encounter ID Performer Location Encounter Start Date Encounter Closed Date Diagnosis/Indication Diagnosis SNOMED-CT Code Diagnosis ICD10 Code Diagnosis Note [id number] JAY RAMSEY [facility] ([facility]) [address] [place] [phone] 10/17/2024 09:47:49 10/17/2024 11:03:51 [id number] Christopher Arcos MD [facility] ([facility]) [address] [place] [address] [phone] 10/23/2024 10:42:36 10/24/2024 13:49:33 Fall W19.XXXA Trays were obtained of the pelvis, hip, and knee and reviewed by me. No evidence of fracture. The patient does have significan t degenerati ve changes noted within his back. Mild arthritis. Contusion of left knee [id number] 3467902 S80.02XA The patient does have evidence of significan t contusion and bleeding under the skin. Encouraged the patient to continue ambulating and mobilizing . Follow-up if symptoms do not improve. [id number] HERB LESTER [employer] DEVELOPER [facility] ([facility]) [address] [place] [address] [phone] 5 10/28/2024 09:40:33 10/28/2024 10:18:07 [id number] Christopher Arcos MD [facility] ([facility]) [address] [place] [address] [phone] 11/04/2024 09:06:09 11/04/2024 10:34:47 At increased risk for falls 142246666 Z91.81 Does have increased risk for falls and has fallen at his apartment recently. Patient would benefit from assistive devices, however insurance will not pay for wheelchair , rollator, and cane. Feels that he would mostly benefit from rollator and will send her order over to part of the [employer] equipment for this device. Also has increased risk for falls especially in the shower so a shower chair would be appropriat e. Type 2 tho betes mellitus 00571822 E11.9 Z79.4 Patient reports a history of [...] accurate list can be made. Essential hypertension 20496155 I10 Pressure not well controlled . Start lisinopril . Patient was encouraged to have his blood pressure checked routinely. Schizophrenia 96376128 F 20.9 Patient needs to continue to follow with psychiatry . Will try to find what medication he was placed on during his recent inpatient psych admission. Hyperlipidemia 13619401 E78.5 Screening for malignant neoplasm of colon 034898495 Z12.11 Will send referral to GI for colon cancer screening. Generalize d anxiety disorder 47266475 F41.1 Health Concerns Section Related Observation LastModified by Organization Detai ls LastModified Time None Recorded Concern Status LastModified by Organization Details LastModified Time None Recorded Payers Encounter Date Sequence Insurance Name Policy Number Policy Franklin Covered Member ID Franklin Member ID Guarantor Name 11/04/2024 1 [facility] [place]/A DVANTAGE - HMO) Benedicto Amaral [id number] Benedicto Amaral 11/04/2024 2 [place] Benedicto Amaral [id number] Benedicto Amaral Notes Date Note Type Note Provider Name and Address Organization Details Recorded Time 11/04/2024 text/html Annual WellnessReported bypatient.Diet and Nutrition:high [...] weeks prior at his place of living, [facility]. He would like to go to a [...] hospital time in a psych facility at [facility]. Patient states that they started him on new medications but he does not recall what they were. Christopher Arcos MD [address] [place] [address], [phone], [facility], Avni 11/05/2024 11:55:05
--- OUTSIDE RECORDS SUMMARY | 2024-11-10 12:13 | XMS_ITS | Clinical Summary ---
Author Organization [facility] Address [address] Attn: Epic Prelude ADT FACUNDO CORRAL [phone] Care Team Providers Care Cloth Grader Name Role Phone Unavailable Primary Care Provider Unavailabl e Allergies Active Allergy Reactions Criticality Noted Date Comments Lactose Diarrhea Medium 08/03/2022 [place] Anaphylaxis,Other (S ee Comments) High 05/02/2018 Vomiting [...] admission 06/15 Borderline diabetes 06/20/2021 Atherosclerosis of [place] co ronary artery of [place] heart without angina pectoris 06/13/2021 Benign prostatic [...] week 07/09/2021 How often do you attend [facility] or zoroastrianism services? More than 4 times per year 07/09/2021 Do you belong to any clubs o r organizations such as baptist groups, unions, fraternal or athletic groups, or [...] place to sleep or slept in a usp (including now)? Yes 07/09/2021 Education Answer Date Recorded What is the highest level of school you have completed or the highest degree you have received? 8th grade 07/09/2021 Sex and Gender Information Value Date Recorded Sex Assigned at Not on file Legal Sex Male 11:12 AM ORGANIC CHEMIST Gender Identity Not on file Sexual Orientation [...] Diagnosis Comments COLONOSCOPY REPORT 04/30/2019 4:17 PM ORGANIC CHEMIST from Last 3 Months or Most Recently Relevant to Health Maintenance Results * COLONOSCOPY REPORT (04/30/2019 4:17 PM ORGANIC CHEMIST) Teofilo Graves MD GI PROCEDURE ORDERABL ES Final Result from Last 3 Months or Most Recently Relevant to Health Maintenance Insurance MEDICAID [facility] DUAL COMPLETE HMO [facility] [id number] RX [employer] RX Member Subscriber Plan / Payer (Ef fective 2021-Present) Name:Benedicto Amaral Relation to Subscriber:Self Name:Benedicto Amaral Subscriber ID:Not on file Payer ID:Not on file Group ID:[id number] Type:RX Medicare Part D Address: [address] [place] MEDICA[place] [facility] MEDICARE [id number] Advance Directives For more information, please contact: [phone] * Full Code (Latest Code Status on [...]
--- NOTE | 2024-11-10 12:27 | W.ED.CHESTPA ---
HPI - Chest Pain General: Chief Complaint: Chest Pain Stated Complaint: chest pain Time Seen by Provider: 11/10/24 12:07 Source: patient and EMS Mode of arrival: EMS Limitations: no limitations History of Present Illness: 64-year-old male who states has been having chest pain over the last 2 days he had recently been admitted here and discharged on the he does have cellulitis to his left leg he is currently on Keflex 4. He denies any shortness of breath rates his pain a 2 out of 10 currently. Associated symptoms: Deny abdominal pain, dyspnea, fever(s), nausea or vomiting Related Data Home Medications ?Medication ?Instructions ?Recorded ?Confirmed simvastatin 40 mg tablet 40 mg PO BEDTIME 02/19/24 11/06/24 cetirizine 10 mg tablet 10 mg PO DAILY 05/05/24 11/06/24 losartan 25 mg tablet 25 mg PO DAILY 10/29/24 11/06/24 paliperidone palmitate 234 mg/1.5 234 mg IM Q30D 10/29/24 11/06/24 mL intramuscular syringe ([facility] lorazepam 0.5 mg tablet 0.25 mg PO BID 11/05/24 11/06/24 eszopiclone 3 mg tablet 3 mg PO BEDTIME 11/06/24 11/06/24 haloperidol 10 mg tablet 10 mg PO BID 11/06/24 11/06/24 paliperidone 3 mg tablet,extended 3 mg PO QAM 11/06/24 11/06/24 release 24 hr sodium chloride 1,000 mg soluble 1,000 mg PO BID 11/06/24 11/06/24 tablet Previous Rx's ?Medication ?Instructions ?Recorded metformin 500 mg tablet 500 mg PO BIDWM 30 days #60 tabs 09/22/24 metoprolol tartrate 25 mg tablet 25 mg PO BID 30 days #60 tabs 09/22/24 divalproex 500 mg tablet,extended 500 mg PO BID #60 tabs 11/05/24 release 24 hr (Depakote ER) risperidone 1 mg tablet (Risperdal) 1 mg PO BID #60 tabs 11/05/24 cephalexin 500 mg capsule 500 mg PO Q12H 7 days #14 caps 11/07/24 Allergies Allergy/AdvReac Type Severity Reaction Status Date / Time lithium Allergy ADR-Nausea Verified 11/09/24 11:40 oxycodone (From OxyContin) Allergy nausea Verified 11/09/24 11:40 Penicillins Allergy ALGY-Difficulty Verified 11/09/24 11:40 Breathing Review of Systems Const: Denies: fever(s), chills, body aches or change in appetite ENMT: Denies: throat pain or dental pain Card: Reports: chest pain Resp: Denies: dyspnea GI: Denies: abdominal pain, nausea, vomiting or diarrhea Musc: Denies: neck pain or back pain Skin/Breast: Denies: rash Neuro: Denies: headache(s) PFSH ED PFSH: Medical History Cellulitis and abscess of left leg Chronic hyponatremia Schizoaffective disorder, bipolar type Seasonal allergies History of Parkinson's disease Hyperlipidemia Hypertension Psychiatric care Family History Father Cancer stomach Mother Cancer ovarian Social History Smoking and tobacco/nicotine status: former use of tobacco/nicotine Quit status (tobacco/nicotine): has quit using Year quit tobacco: Roughly 2014 Alcohol intake: current Alcohol intake frequency: holidays/special occasions only Substance/Drug Use: former Additional social history: Patient states he lives alone he would like full CODE STATUS as discussed 11/06/2024. He states that also if he saw Bear he would want to go forward to Bear Adopted: No Caregiver/support person: No Lives independently: Yes Household members: none Housing: Apartment Marital status: / Number of children: 1 Number of grandchildren: 2 Highest education level completed: 8th Grade Current occupational status: unemployed Pets and animals: No Leisure activites: exercise and clubs Sexually active: No Do you think of yourself as: Straight/Heterosexual Current gender identity: Male Janelle/Episcopalian: Mu-Ism Special janelle needs: No Agree to transfusion: Yes Physical Exam Const: COMMON NORMALS: patient oriented x3 HENMT: COMMON NORMALS: normocephalic and atraumatic HEAD & SCALP: normocephalic and atraumatic Eye: COMMON NORMALS: Equal, round and reactive pupils present and EOMs intact bilaterally PUPIL: Yes Equal, round and reactive pupils present Neck/C-Spine: COMMON NORMALS: full ROM and supple Chest: COMMONS NORMALS: normal inspection of the chest and normal palpation of entire chest wall Resp: COMMON NORMALS: normal respiratory effort, No retractions, No use of accessory muscles and clear to auscultation bilaterally AUSCULTATION: clear to auscultation bilaterally Cardio: COMMON NORMALS: regular rate, regular rhythm and No murmurs present (Cardio) RATE: regular rate RHYTHM: regular rhythm GI: COMMON NORMALS: Normal to inspection, nondistended, normoactive bowel sounds present, Soft to palpation, non-tender and no masses PALPATION: Yes Soft to palpation Extremity: COMMON NORMALS: full ROM NARRATIVE EXTREMITY EXAM: Erythema noted to left leg is warm to touch Neuro: COMMON NORMALS: patient oriented x3, moves all extremities and no focal motor deficits Psych: COMMON NORMALS: mental status grossly normal, Normal thought process present and cooperative THOUGHT PROCESS: Normal thought process present Skin: COMMON NORMALS: no rashes or lesions noted and no wounds GENERAL SKIN EXAM: no rashes or lesions noted Course Vital Signs: Vital signs: Vital Signs Temperature 97.6 F 11/10/24 12:11 Pulse Rate 96 11/10/24 12:11 Respiratory Rate 12 11/10/24 12:11 Blood Pressure 158/97 11/10/24 12:11 Pulse Oximetry 94 11/10/24 12:11 MDM - Chest Pain Medical Decision Making Patient presenting for chest pain he refused all blood drawl and stated he just wanted to leave I did inform him that I cannot rule out any acute cardiac event without blood work he understands and signed out AMA. Medical Records I reviewed the patient's medical records. Lab Data I reviewed the patient's lab results. Radiology Impressions Chest X-Ray 11/10/24 12:08 IMPRESSION: Stable chest without acute abnormality. All radiology interpretation(s) finalized by discharge EKG Data EKG 1: I personally reviewed and interpreted this EKG as follows: EKG interpretation date: 11/10/24 EKG interpretation time: 12:14 Interpretation: nsr hr [address] elevation qrs 89 qtc 412 Discharge Plan Discharge Patient Disposition: Left Against Medical Advice Clinical Impression: Chest pain Condition: Stable Prescriptions: No Action simvastatin 40 mg tablet 40 mg PO BEDTIME Invega Sustenna 234 mg/1.5 mL syringe 234 mg IM Q30D Rx Instructions: Injection every 28 days Received at [facility] today, 10/29/24 lorazepam 0.5 mg tablet 0.25 mg PO BID divalproex [Depakote ER] 500 mg tablet extended release 24 hr 500 mg PO BID Qty: 60 3RF risperidone [Risperdal] 1 mg tablet 1 mg PO BID Qty: 60 3RF losartan 25 mg tablet 25 mg PO DAILY cetirizine 10 mg tablet 10 mg PO DAILY metformin 500 mg Tablet 500 mg PO BIDWM 30 Days Qty: 60 1RF metoprolol tartrate 25 mg tablet 25 mg PO BID 30 Days Qty: 60 1RF haloperidol 10 mg tablet 10 mg PO BID eszopiclone 3 mg tablet 3 mg PO BEDTIME sodium chloride 1,000 mg tablet,soluble 1,000 mg PO BID paliperidone 3 mg tablet extended release 24hr 3 mg PO QAM cephalexin 500 mg capsule 500 mg PO Q12H 7 Days Qty: 14 0RF Referrals: Shemar Arcos MD [Primary Care Provider, Family Practice] Print Language: Uzbek Coding Level of Care Code ED [employer] for Brien Loomis
== END 2024-11-10 12:55 | disposition left against medical advice (07) ==
PROVIDERS: Emergency Provider Emergency Medicine; PCP Family Medicine
DX: R07.9 Chest pain, unspecified (principal); Z79.84 Long term (current) use of oral hypoglycemic drugs; Z87.891 Personal history of nicotine dependence; E78.5 Hyperlipidemia, unspecified; I10 Essential (primary) hypertension
CPT/HCPCS: 71045; 93005; 99284

== ENCOUNTER 2024-11-13 22:03 | Emergency (ER) | payer OTHER, MEDICAID, SELFPAY ==
--- OUTSIDE RECORDS SUMMARY | 2022-04-14 10:31 | XMS_ITS | Continuity of Care Document ---
Author Organization [facility] Address [address] [id number][place] [address] Phone Care Team Providers Care Tissue Technologist Name Role Phone Anand Duncan NP Unavailable [...] Diagnoses Date Provider Providers Copied on Encounter [facility], [address]jieb222I6 [id number]- [facility], [place], [place], [address], [place] tel:[phone] [facility] No Information 2 Dakota Anand. [address] [place], [address], [place]. tel:[phone] [facility], [address] Nccdb011V8 1519780VN- [place], [address], [place] tel:[phone] Behavioral Medicine F2 Medication Management (chief complaint)Eder izoaffective disorder (chief complaint)Gen eralized Anxiety Disorder (chief complaint) Schizoaffect filemon disorder, bipolar typeGenerali zed anxiety disorder Sep- 2 Kendrick Cabrera. [address] [place], [place], [address], [place]. tel:[phone] Referring Provider: Deborah Marks, [address] [place], [address] . tel:[phone] [facility], [address] Qsuud864X1 6874188WV- [place], [address], [place] tel:[phone] Vision F1 Encounter for fit/adjst of spectacles and contact lenses Jan- 2 Genia Aponte. [address], [place], [address], [place]. tel:[phone] Referring Provider: Fay Cormier , [address] [place], [address] . tel:[phone] [facility], [address] Qwsch495B0 7379485UP- [place], [address], [place] tel:[phone] [facility] No Information Jan-0 2 No Information [facility], [address] Hrffj857H3 2197046XEWinona, [place], [address], [place] tel:[phone] Behavioral Medicine F2 Schizoaffect filemon disorder, bipolar type Jan- 2 Kendrick Cabrera. [address] [place], [place], [address], [place]. tel:[phone] Referring Provider: Deborah Marks, [address] [place], [address] . tel:[phone] OFFICE/OUTPA TIENT VISIT EST [facility], [address] Satsj585X0 7488507EU- [place], [address], [place] tel:[phone] [facility] Est care (chief complaint) Hypertension PrediabetesM ixed hyperlipidem iaEncounter for immunization Jan-0 2 Horacio Blackman. [address] [place], [address], [place]. tel:[phone] Referring Provider: Hiral Leonard, [address] [place], [address]. tel:[phone] [facility], [address] Wqzcm800E2 7081439TU- [place], [address], [place] tel:[phone] Behavioral Medicine F2 Medication Management (chief complaint)Eder izoaffective disorder (chief complaint)Gen eralized Anxiety Disorder (chief complaint) Schizoaffect filemon disorder, bipolar typeGenerali zed anxiety disorder 2 Kendrick Cabrera. [address] [place], [place], [address], [place]. tel:[phone] Referring Provider: Deborah Marks, [address] [place], [address] . tel:[phone] [facility], [address] Krrkn708I9 2124977IL- [place], [address], [place] tel:[phone] Vision F1 blurry vision (chief complaint) Hypermetropi a, bilateralReg ular astigmatism, bilateralPre sbyopiaAge-r elated nuclear cataract, bilateral 2 Genia Aponte. [address], [place], [address], [place]. tel:[phone] Referring Provider: Fay Cormier , [address] [place], [address] . tel:[phone] [facility], [address] Xiixh315R3 1798619VAWinona, [place], [address], [place] tel:[phone] Behavioral Medicine F2 Medication Management (chief complaint)Eder izophrenia (chief complaint)Gen eralized Anxiety Disorder (chief complaint) Undifferenti ated schizophreni aGeneralized anxiety disorder 2 Kendrick Cabrera. [address] [place], [place], [address], [place]. tel:[phone] Referring Provider: Deborah Marks, [address] [place], [address] . tel:[phone] [facility], [address] [place] [address], [address], [place] tel:[phone] Behavioral Medicine F2 Schizoaffect filemon disorder, bipolar type 2 Kendrick Cabrera. [address] [place], [place], [address], [place]. tel:[phone] Referring Provider: Deborah Marks, [address] [place], [address] . tel:[phone] [facility], [id number] [place] [address], [address], [place] tel:[phone] Behavioral Medicine F2 Medication Management (chief complaint)Anx iety (chief complaint)und ifferentiated schizophrenia (chief complaint) Generalized anxiety disorderUndi fferentiated schizophreni a 2 Kendrick Cabrera. [address] [place], [place], [address], [place]. tel:[phone] Referring Provider: Deborah Marks, [address] [place], [address] . tel:[phone] OFFICE/OUTPA TIENT VISIT EST [facility], [address] Lwhhy310A7 9787433BKWinona, [place], [address], [place] tel:[phone] Behavioral Medicine F2 Hyperglycemia (chief complaint) Hyperglycemi aType 2 diabetes mellitus without complication s 2 Dakota Michel. [address] [place], [address], [place]. tel:[phone] Referring Provider: Anand Duncan, [address] [place], [address]. tel:[phone] [facility], [address] Hcwvw773B7 3417362XRWinona, [place], [address], [place] tel:[phone] Behavioral Medicine F2 Medication Management (chief complaint)Eder izophrenia (chief complaint)Gen eralized Anxiety Disorder (chief complaint) Undifferenti ated schizophreni aGeneralized Anxiety Disorder 2 Kendrick Cabrera. [address] [place], [place], [address], [place]. tel:[phone] Referring Provider: Deborah Marks, [address] [place], [address] . tel:[phone] OFFICE/OUTPA TIENT VISIT, [facility], [address] Nrsvh206S2 0779427NTWinona, [place], [address], [place] tel:[phone] Behavioral Medicine F2 EPS (chief complaint) Extrapyramid al and movement disorder 2 Dakota Michel. [address] [place], [address], [place]. tel:[phone] Referring Provider: nAand Duncan, [address] [place], [address]. tel:[phone] OFFICE/OUTPA TIENT VISIT [facility], [address] [id number] 2765174QDWinona, [place], [address], [place] tel:[phone] Behavioral Medicine F2 Counseling (chief complaint) Counseling and coordination of careHypergly cemiaHyponat remia 2 Dakota Michel. [address] [place], [address], [place]. tel:[phone] Referring Provider: Anand Duncan, [address] [place], [address]. tel:[phone] [facility], [address] Dyenj159O7 3971638ZH- [place], [place], [address], [place] tel:[phone] Behavioral Medicine F2 Medication Management (chief complaint)Eder izophrenia (chief complaint)Gen eralized Anxiety Disorder (chief complaint) Undifferenti ated schizophreni aGeneralized Anxiety Disorder 2 Kendrick Cabrera. [address] [place], [place], [address], [place]. tel:[phone] Referring Provider: Deborah Marks, [address] [place], [address] . tel:[phone] OFFICE/OUTPA TIENT VISIT [facility], [address] Gsvwv023N1 3310605KPWinona, [place], [address], [place] tel:[phone] Behavioral Medicine F2 Follow Up (chief complaint) Benign prostatic hyperplasia with urinary frequencySch izophrenia, unspecified type 2 Dakota Michel. [address] [place], [address], [place]. tel:[phone] Referring Provider: Anand Duncan, [address] [place], [address]. tel:[phone] OFFICE/OUTPA TIENT VISIT, [facility], [address] Rbfwe251R6 5526528LTWinona, [place], [address], [place] tel:[phone] [facility] Weakness (chief complaint) WeaknessChro lizet cough 2 Bina Aponte. [address] [place], [place], [address], [place]. tel:[phone] Referring Provider: Fadi Curran, [address] [place], [address] . tel:[phone] OFFICE/OUTPA TIENT VISIT EST [facility], [address] Vvoqe126L0 1861073KJ- [place], [address], [place] tel:[phone] Behavioral Medicine F2 Several Concerns (chief complaint) Acute coughSchizoa ffective disorder, bipolar typePrediabe tesBenign prostatic hyperplasia with urinary frequencyExt rapyramidal and movement disorderRash and other nonspecific skin eruptionHema turia, unspecified 2 Dakota Michel. [address] [place], [address], [place]. tel:[phone] Referring Provider: Anand Duncan, [address] [place], [address]. tel:[phone] [facility], [address] Hxlce549F7 0116502KU- [place], [place], [address], [place] tel:[phone] Behavioral Medicine F2 Schizoaffect filemon disorder, bipolar type 2 Kendrick Cabrera. [address] [place], [place], [address], [place]. tel:[phone] Referring Provider: Deborah Marks, [address] [place], [address] . tel:[phone] [facility], [address] Sdcug680K0 9482731HO- [place], [address], [place] tel:[phone] Behavioral Medicine F2 Medication Management (chief complaint)Eder izophrenia (chief complaint) Undifferenti ated schizophreni aGeneralized Anxiety Disorder 2 Kendrick Cabrera. [address] [place], [place], [address], [place]. tel:[phone] Referring Provider: Deborah Marks, [address] [place], [address] . tel:[phone] [facility], [address] Snzpl887P8 7317862CM- [place], [place], [address], [place] tel:[phone] [facility] No Information 2 Jo Portillo. [address], [place], [address], [place]. tel:[phone] Referring Provider: Bandar Osorio, [address] [place], [address] . tel:[phone] OFFICE/OUTPA TIENT VISIT, [facility], [address] Ouuvm972M4 0111282WH- [place], [address], [place] tel:[phone] [facility] cough (chief complaint) CoughNasal congestion with rhinorrhea 2 Jo Portillo. [address] [place], [place], [address], [place]. tel:[phone] Referring Provider: Bandar Osorio, [address] [place], [address] . tel:[phone] PSYTX PT&/FAMILY 30 MINUTES [facility], [address] Jxaqw077O2 5878373TE- [place], [address], [place] tel:[phone] [facility] Schizoaffect fileomn disorder, bipolar type 2 Myron Houston. [address] [facility] , [place], [place], [address], [place]. tel:[phone] Referring Provider: Celso Sanches, [address] [place], [address] . tel:[phone] OFFICE/OUTPA TIENT VISIT [facility], [address] Dvqmg913Y1 6993878AT- [place], [place], [address], [place] tel:[phone] Behavioral Medicine F2 Tremors (chief complaint) Schizoaffect filemon disorder, bipolar typeType 2 diabetes mellitus without complication , without long-term current use of insulinExtra pyramidal and movement disorderEsse ntial (primary) hypertension Other senior care (current) drug therapyPredi abetesTremor , unspecified Apr-0 2 Dakota Michel. [address] [place], [address], [place]. tel:[phone] Referring Provider: Anand Duncan, [address] [place], [address]. tel:[phone] OFFICE/OUTPA TIENT VISIT EST [facility], [address] Gpxwl008O5 0830269RPWinona, [place], [address], [place] tel:[phone] Behavioral Medicine F2 URI (chief complaint) Acute bronchitis due to other specified organisms Mar-3 2 Dakota Michel. [address] [place], [address], [place]. tel:[phone] Referring Provider: Anand Duncan, [address] [place], [address]. tel:[phone] [facility], [address] Ynwbo373I7 4863451QQWinona, [place], [address], [place] tel:[phone] Behavioral Medicine F2 new psych (chief complaint) Schizoaffect filemon disorder, bipolar type Mar-3 2 No Information OFFICE/OUTPA TIENT VISIT EST [facility], [address] Knoxh149J8 2085263WBWatkins, [place], [address], [place] tel:[phone] Behavioral Medicine F2 Injection (chief complaint) Schizophreni a, unspecified type Mar-2 2 Dakota Michel. [address] [place], [address], [place]. tel:[phone] Referring Provider: Anand Duncan, [address] [place], [address]. tel:[phone] PSYTX PT&/FAMILY 30 MINUTES [facility], [address] Ngvcl818T6 9293034ST- [place], [place], [address], [place] tel:[phone] [facility] Schizophreni a, unspecified type 2 Lyle Blunt. [address] [place], [place], [address], [place]. tel:[phone] Referring Provider: Merlene Alvarenga, [address] [place], [address] . tel:[phone] OFFICE/OUTPA TIENT VISIT EST [facility], [address] Idrcl376O2 5215509FSWatkins, [place], [address], [place] tel:[phone] [facility] cough/ congestion (chief complaint)htn (chief complaint) Acute coughNasal congestion with rhinorrheaFl uOther schizophreni aHypertensio n 2 Jo Portillo. [address] [place], [place], [address], [place]. tel:[phone] Referring Provider: Bandar Osorio, [address] [place], [address] . tel:[phone] [facility], [address] Pflwf540D3 7627353CVWinona, [place], [address], [place] tel:[phone] Family Medicine No Information 2 Marjorie Moreno. [address] [place], [place], [address], [place]. tel:[phone] Referring Provider: Tiffanie Amador, [address] [place], [address] . tel:[phone] [facility], [address] Jobwl881K2 0559621RCWatkins, [place], [address], [place] tel:[phone] [facility] No Information 1 Evan Roque. [address], [place], [address], [place]. tel:[phone] Referring Provider: Mya Gusman, [address] [place], [address] . tel:[phone] OFFICE/OUTPA TIENT VISIT, [facility], [address] Mwuay885P1 2102744QTWinona, [place], [address], [place] tel:[phone] Behavioral Medicine F2 Schizophreni a, unspecified type 1 Evan Roque. [address] [place], [place], [address], [place]. tel:[phone] Referring Provider: Mya Gusman, [address] [place], [address] . tel:[phone] OFFICE/OUTPA TIENT VISIT [facility], [address] Tfghn326M6 9625394XGWinona, [place], [address], [place] tel:[phone] [facility] [place] [facility] prediabetes (chief complaint)Silvia k pain (chief complaint)BPH (chief complaint) PrediabetesT ype 2 diabetes mellitus without complication , without long-term current use of insulinChron ic bilateral low back pain with right-sided sciaticaOthe r chronic painBenign prostatic hyperplasia with urinary frequency 1 Evan Roque. [address], [place], [address], [place]. tel:[phone] Referring Provider: Mya Gusman, [address] [place], [address] . tel:[phone] [facility], [address] Mprir767K2 8236396BMWinona, [place], [address], [place] tel:[phone] [facility] No Information 1 Bina Aponte. [address] [place], [place], [address], [place]. tel:[phone] Referring Provider: Fadi Curran, [address] [place], [address] . tel:[phone] OFFICE/OUTPA TIENT VISIT, EST [facility], [address] Iarnx233D3 0864639ML- [facility], [place], [place], [address], [place] tel:[phone] [facility] Right upper leg pain / burning for the past (chief complaint) Right sided sciatica Feb-2 1 Jaren Larson. [address], [place], [address], [place]. tel:[phone] Referring Provider: Marsha Eastman, [address] [place], [address] . tel:[phone] [facility], [address] Cquky464I9 1239868ABWinona, [place], [address], [place] tel:[phone] Behavioral Medicine F2 Schizophreni a, unspecified type Feb- 1 Evan Roque. [address], [place], [address], [place]. tel:[phone] Referring Provider: Mya Gusman, [address] [place], [address] . tel:[phone] [facility], [address] Qbnzt678U2 8914215HU- [place], [place], [address], [place] tel:[phone] Family Medicine F1 Change of job 0 1 [facility]. [address], [place], [address], [place]. tel:[phone] [facility], [address] Aapyn030L7 9467121TV- [place], [place], [address], [place] tel:[phone] Behavioral Medicine F2 Schizophreni a, unspecified type Jan- 1 Evan Roque. [address] [place], [place], [address], [place]. tel:[phone] Referring Provider: Mya Gusman, [address] [place], [address] . tel:[phone] OFFICE/OUTPA TIENT VISIT, [facility], [address] Ejyor673A1 5427115TP- [place], [place], [address], [place] tel:[phone] [facility] [place] [facility] Earache (chief complaint) Acute otitis externa of right ear, unspecified type 1 Evan Roque. [address] [place], [place], [address], [place]. tel:[phone] Referring Provider: Mya Gusman, [address] [place], [address] . tel:[phone] OFFICE/OUTPA TIENT VISIT, [facility], [address] Fmmjc706N9 5081364OMWinona, [place], [address], [place] tel:[phone] [facility] Schizophreni a, unspecified type 1 Evan Roque. [address] [place], [place], [address], [place]. tel:[phone] Referring Provider: Mya Gusman, [address] [place], [address] . [phone] [facility], [address] Eqlmb895F9 4103967GBWinona, [place], [address], [place] tel:[phone] Family Medicine F1 Cough 1 Med Crump. [address], [place], [address], [place]. tel:[phone] Referring Provider: Theron Jovel, [address] [place], [address] . tel:[phone] OFFICE/OUTPA TIENT VISIT [facility], [address] Fxftu587E6 1417130TCWatkins, [place], [address], [place] tel:[phone] [facility] Viral syndrome (chief complaint)cou gh, congestion x 1 wk (chief complaint) Contact with and (suspected) exposure to other viral communicable diseasesVira l URI 1 Med [facility]. [address], [place], [address], [place]. tel:[phone] Referring Provider: Theron Jovel, [address] [place], [address] . tel:[phone] [facility], [address] Xjpiz133E3 6183689ZYWinona, [place], [address], [place] tel:[phone] Family Medicine F1 Unemployment [address] [facility]. [address], [place], [address], [place]. tel:[phone] [facility], [address] Ujiof989V1 5937983PXWinona, [place], [address], [place] tel:[phone] Behavioral Medicine F2 No Information 1 Evan Roque. [address], [place], [address], [place]. tel:[phone] Referring Provider: Mya Gusman, [address] [place], [address] . tel:[phone] [facility], [address] Yievv004C9 1702297TZWinona, [place], [address], [place] tel:[phone] [facility] behavioral health f/u (chief complaint)dep ression (chief complaint) Schizophreni a, unspecified type 1 Evan Roque. [address], [place], [address], [place]. tel:[phone] Referring Provider: Mya Gusman, [address] [place], [address] . tel:[phone] [facility], [address] Gbgbf466P0 6718212NYWinona, [place], [address], [place] tel:[phone] [facility] Schizophreni a, unspecified type 1 Gordon Mya. [address], [place], [address], [place]. tel:[phone] Referring Provider: Mya Gusman, [address] [place], [address] . tel:[phone] [facility], [address] Hlrzu657A1 5036938SGWinona, [place], [address], [place] tel:[phone] [facility] Schizoaffecti ve disorder (chief complaint) Hypo-osmolal ity and hyponatremia Other intermediate card tender (current) drug therapyMixed hyperlipidem iaSchizophre michaela, unspecified type 1 Evan Mya. [address], [place], [address], [place]. tel:[phone] Referring Provider: Mya Gusman, [address] [place], [address] . tel:[phone] [facility], [address] Tiosl694U0 8876033EUWinona, [place], [address], [place] tel:[phone] [facility] Schizophreni a, unspecified type 1 Evan Roque. [address], [place], [address], [place]. tel:[phone] Referring Provider: Mya Gusman, [address] [place], [address] . tel:[phone] OFFICE/OUTPA TIENT VISIT, EST [facility], [address] Ispmd976A2 8225814CRWinona, [place], [address], [place] tel:[phone] [facility] [place] [facility] knots on legs (chief complaint) Worried well 1 Evan Roque. [address], [place], [address], [place]. tel:[phone] Referring Provider: Mya Gusman, [address] [facility], [place], [address] . tel:[phone] [facility], [address] Tnhij809V5 1294062QN- [facility], [place], [place], [address], [place] tel:[phone] [facility] Schizophreni a, unspecified type Apr-2 1 Evan Mya. [address], [place], [address], [place]. tel:[phone] Referring Provider: Mya Gusman, [address] [facility], [place], [address] . tel:[phone] [facility], [address] Knzme158Z9 6366642JW- [place], [place], [address], [place] tel:[phone] [facility] Schizophrenia (chief complaint) Schizophreni a, unspecified type Mar-2 1 Evan Mya. [address], [place], [address], [place]. tel:[phone] Referring Provider: Mya Gusman, [address] [place], [address] . tel:[phone] OFFICE/OUTPA TIENT VISIT, [facility], [address] Fdcda139X0 5927781JN- [facility], [place], [place], [address], [place] tel:[phone] [facility] Dizziness (chief complaint) Dizzy Mar-0 1 Evan Mya. [address], [place], [address], [place]. tel:[phone] Referring Provider: Mya Gusman, [address] [place], [address] . tel:[phone] [facility], [address] Zoyhl727Q8 4721375FP[facility], [place], [place], [address], [place] tel:[phone] [facility] Schizophreni a, unspecified type Mar-0 1 Gordon Mya. [address], [place], [address], [place]. tel:[phone] Referring Provider: Mya Gusman, [address] [place], [address] . tel:[phone] [facility], [address] Kinbf582Q2 3312582FXWatkins, [place], [address], [place] tel:[phone] [facility] Schizophreni a, unspecified type 1 Gordon Mya. [address] [place], [place], [address], [place]. tel:[phone] Referring Provider: Mya Gusman, [address] [place], [address] . tel:[phone] [facility], [address] Flksn892H0 6847222OLWinona, [place], [address], [place] tel:[phone] Family Medicine F1 Schizophreni a, unspecified type 0 Gordon Mya. [address] [place], [place], [address], [place]. tel:[phone] Referring Provider: Mya Gusman, [address] [place], [address] . tel:[phone] [facility], [address] Csnzk061S5 3577733OZWinona, [place], [address], [place] tel:[phone] Behavioral Medicine F2 No Information 0 Gordon Mya. [address] [place], [place], [address], [place]. tel:[phone] Referring Provider: Mya Gusman, [address] [place], [address] . tel:[phone] OFFICE/OUTPA TIENT VISIT, EST [facility], [address] Cwabh553Y8 2996319AE- [place], [place], [address], [place] tel:[phone] [facility] [place] Referral for urologist (chief complaint)bed bugs (chief complaint)Blo od in stool (chief complaint) Urinary frequencyBlo od in stoolInfesta tion by bed bugOther intermediate card tender (current) drug therapyPredi abetesBenign prostatic hyperplasia with urinary frequencyOth er microscopic hematuria Apr-0 7-202 0 Evan Roque. [address], [place], [address], [place]. tel:[phone] Referring Provider: Mya Gusman, [address] [place], [address] . tel:[phone] [facility], [address] Ginpz579P1 6596477COWinona, [place], [address], [place] tel:[phone] [facility] Schizophreni a, unspecified type 0 0 Evan Roque. [address], [place], [address], [place]. tel:[phone] Referring Provider: Mya Gusman, [address] [place], [address] . tel:[phone] OFFICE/OUTPA TIENT VISIT EST [facility], [address] Eulmj279X0 8436871BA- [place], [place], [address], [place] tel:[phone] [facility] Rash (chief complaint) Rash and other nonspecific skin eruption Mar-0 2202 0 Bina Aponte. [address] [place], [place], [address], [place]. tel:[phone] Referring Provider: Fadi Curran, [address] [place], [address] . tel:[phone] [facility], [address] Fwdax995Q1 7465853CKWatkins, [place], [address], [place] tel:[phone] [facility] Schizophreni a, unspecified type Feb 0 Gordon Mya. [address] [place], [place], [address], [place]. tel:[phone] Referring Provider: Mya Gusman, [address] [place], [address] . tel:[phone] [facility], [address] Nmobk363Q7 4655638KU- [place], [place], [address], [place] tel:[phone] [facility] Schizophreni a, unspecified type Sep-3 0 Gordon Mya. [address] [place], [place], [address], [place]. tel:[phone] Referring Provider: Mya Gusman, [address] [place], [address] . tel:[phone] [facility], [address] T[address]2 4949349BRWin[place], [place], [address], [place] tel:[phone] [facility] [place] Schizophrenia (chief complaint) Schizophreni a, unspecified typeGenerali zed Anxiety Disorder 0 Gordon Mya. [address], [place], [address], [place]. tel:[phone] Referring Provider: Mya Gusman, [address] [place], [address] . tel:[phone] [facility], [address] Mmqeg607M3 9691206OS- [place], [place], [address], [place] tel:[phone] [facility] [place] Generalized Anxiety Disorder Nov- 0 Evan Mya. [address], [place], [address], [place]. tel:[phone] Referring Provider: Mya Gusman, [address] [place], [address] . tel:[phone] [facility], [address] Jvcen886A0 1348436FBWinona, [place], [address], [place] tel:[phone] Family Medicine F1 Schizophreni a, unspecified type 0 Gordon Mya. [address], [place], [address], [place]. tel:[phone] Referring Provider: Mya Gusman, [address] [place], [address] . tel:[phone] [facility], [address] Libps308Y3 0398294QMWinona, [place], [address], [place] tel:[phone] Family Medicine F2 schizophrenia (chief complaint) Schizophreni a, unspecified typeGenerali zed Anxiety Disorder 0 Gordon Mya. [address], [place], [address], [place]. tel:[phone] Referring Provider: Mya Gusman, [address] [place], [address] . tel:[phone] [facility], [address] Ofgcw819V8 2218599LZWat[place], [place], [address], [place] tel:[phone] Family Medicine F1 hypertension (chief complaint) No Information 0 Gordon Mya. [address], [place], [address], [place]. tel:[phone] Referring Provider: Mya Gusman, [address] [place], [address] . tel:[phone] [facility], [address] Lmsys481K3 6035402SQWat[place], [place], [address], [place] tel:[phone] Family Medicine F1 Schizophrenia (chief complaint) Schizophreni a, unspecified typeFrequenc y of micturition 0 Gordon Mya. [address], [place], [address], [place]. tel:[phone] Referring Provider: Mya Gusman, [address] [place], [address] . tel:[phone] OFFICE/OUTPA TIENT VISIT, EST [facility], [address] Djnqi371J4 4581252UP- [place], [place], [address], [place] tel:[phone] Family Medicine F1 Blood in urine (chief complaint) Frequency of micturition Aug-2 0 Evan Roque. [address], [place], [address], [place]. tel:[phone] Referring Provider: Mya Gordon R, [address] [place], [address] . tel:[phone] [facility], [address] Htiuv257T3 3782967BAWinona, [place], [address], [place] tel:[phone] Family Medicine F1 Hematuria, unspecified 0 Cale Hernandez. [address], [place], [address], [place]. tel:[phone] Referring Provider: David Flores, [address] [place], [address] . tel:[phone] [facility], [address] Swosc402A1 7769113VQWinona, [place], [address], [place] tel:[phone] Behavioral Medicine F2 No Information 0 No Information OFFICE/OUTPA TIENT VISIT EST [facility], [address] Lfeuw854L9 1136706RCWinona, [place], [address], [place] tel:[phone] Behavioral Medicine F2 Follow Up of Mood (chief complaint)Fol low Up of Go over labs (chief complaint)Fol low Up of BPH (chief complaint)Fol low Up of HTN (chief complaint)Fol low Up of Medication Refills (chief complaint) Benign prostatic hyperplasia with urinary frequencyFre quency of micturitionG eneralized Anxiety DisorderHypo natremiaHype rtensionMixe d hyperlipidem iaSchizophre michaela, unspecified typeOther senior care (current) drug therapy Jul-3 0 Aquilino Potter. [address] [place], [place], [address], [place]. tel:[phone] Referring Provider: Abbey Rolle, [address] [place], [address] . tel:[phone] [facility], [address] Wwumy225P7 2687531AJWinona, [place], [address], [place] tel:[phone] Behavioral Medicine F2 Mixed hyperlipidem iaEssential (primary) hypertension Other senior care (current) drug therapy Jul-2 0 No Information OFFICE/OUTPA TIENT VISIT, EST [facility], [address] Ufylw102A7 0000130NYWinona, [place], [address], [place] tel:[phone] Behavioral Medicine F2 Schizophrenia (chief complaint)MAIDA (chief complaint)med ication management (chief complaint) Schizophreni a, unspecified type Jul-2 0 No Information [facility], [address] Imfjd698D4 2078634GPSaranac, [place], [address], [place] tel:[phone] [facility] [place] Schizophreni a, unspecified type Jul-0 0 Evan Roque. [address], [place], [address], [place]. tel:[phone] Referring Provider: Mya Gusman, [address] [place], [address] . tel:[phone] [facility], [address] Ctmjd638I4 4875178FGWinona, [place], [address], [place] tel:[phone] [facility] [place] Schizophreni a, unspecified type Fe- 0 Evan Roque. [address], [place], [address], [place]. tel:[phone] Referring Provider: Mya Gusman, [address] [place], [address] . tel:[phone] [facility], [address] Tjyty080P6 8381799QF- [facility], [place], [place], [address], [place] tel:[phone] [facility] [place] No Information 0 Evan Roque. [address], [place], [address], [place]. tel:[phone] Referring Provider: Mya Gusman, [address] [place], [address] . tel:[phone] OFFICE/OUTPA TIENT VISIT, [facility], [address] Fzkbr406R7 7569274FZWat[place], [place], [address], [place] tel:[phone] [facility] [place] Shortness of breath (chief complaint) COPD 0 Evan Roque. [address], [place], [address], [place]. tel:[phone] Referring Provider: Mya Gusman, [address] [place], [address] . tel:[phone] [facility], [address] Yqebe849W7 4503410ALWatkins, [place], [address], [place] tel:[phone] [facility] [place] No Information 0 Evan Roque. [address], [place], [address], [place]. tel:[phone] Referring Provider: Mya Gusman, [address] [place], [address] . tel:[phone] [facility], [address] Whivp139H5 1241060LMWatkins, [place], [address], [place] tel:[phone] [facility] [place] Follow Up of Schizophrenia (chief complaint) Schizophreni a, unspecified typeGenerali zed Anxiety Disorder May-0 9-202 0 Gordon Mya. [address], [place], [address], [place]. tel:[phone] Referring Provider: Mya Gusman, [address] [place], [address] . tel:[phone] [facility], [address] Haqyd813I9 8582500FLWinona, [place], [address], [place] tel:[phone] [facility] [place] Schizophreni a, unspecified type 0 2-202 0 Gordon Mya. [address], [place], [address], [place]. tel:[phone] Referring Provider: Mya Gusman, [address] [place], [address] . tel:[phone] [facility], [address] Yrcsu172J7 0313009JGWinona, [place], [address], [place] tel:[phone] [facility] Mental [facility] (chief complaint) Other intermediate card tender (current) drug therapySchiz ophrenia, unspecified typeGenerali zed Anxiety Disorder Apr-0 201 9 Gordon Mya. [address], [place], [address], [place]. tel:[phone] Referring Provider: Mya Gusman, [address] [place], [address] . tel:[phone] [facility], [address] Kpfmx608A6 2780011OOWinona, [place], [address], [place] tel:[phone] [facility] [place] Schizophreni a, unspecified type 0 9 Gordon Mya. [address], [place], [address], [place]. tel:[phone] Referring Provider: Mya Gusman, [address] [place], [address] . tel:[phone] OFFICE/OUTPA TIENT VISIT [facility], [address] Jcwtm434V6 4944604KHWatkins, [place], [address], [place] tel:[phone] [facility] [place] Est. Care (chief complaint)Mus culoskeletal pain (chief complaint)Tamela rrhea (chief complaint) Diarrhea, unspecified typeSciatica of left sideSchizoph herb, unspecified typeOther intermediate card tender (current) drug therapy 9 Evan Roque. [address], [place], [address], [place]. tel:[phone] Referring Provider: Mya Gusman, [address] [place], [address] . tel:[phone] OFFICE/OUTPA TIENT VISIT, [facility], [address] Vozyz012S0 4300180CVWinona, [place], [address], [place] tel:[phone] Family Medicine F1 Body aches, nausea, (chief complaint) Viral syndrome 9 No Information OFFICE/OUTPA TIENT VISIT, [facility], [address] Vniiv263R7 0072025HGWinona, [place], [address], [place] tel:[phone] Family Medicine F1 Hospital F/U (chief complaint) Hospital discharge follow-up 9 No Information [facility], [address] Pgdcv168T8 6888664TZWinona, [place], [address], [place] tel:[phone] Family Medicine F1 Generalized Anxiety Disorder 9 No Information OFFICE/OUTPA TIENT VISIT, [facility], [address] Zfupi172Q0 1570316VCWinona, [place], [address], [place] tel:[phone] Family Medicine F1 Exam diarrhea (chief complaint) Diarrhea, unspecified type 9 Bina Aponte. [address], [place], [address], [place]. tel:[phone] Referring Provider: Fadi Curran, [address] [place], [address] . tel:[phone] OFFICE/OUTPA TIENT VISIT, [facility], [address] Cskln957Y6 2929390OJWinona, [place], [address], [place] tel:[phone] Family Medicine F1 Diarrhea (chief complaint) Diarrhea, unspecified type Feb-0 7 9 No Information [facility], [address] Aftzk382V5 6872149NPWinona, [place], [address], [place] tel:[phone] Family Medicine F1 No Information Feb-0 9 No Information [facility], [address] Xoknc348C2 7658076HHWinona, [place], [address], [place] tel:[phone] Family Medicine F1 No Information Feb-0 9 Jose D Armstrong. [address], [place], [address], [place]. tel:[phone] Referring Provider: Nathaniel Jeffery, [address] [place], [address] . tel:[phone] OFFICE/OUTPA TIENT VISIT, [facility], [address] Klvyw812B7 6174416CSWinona, [place], [address], [place] tel:[phone] Family Medicine F1 Diarrhea (chief complaint) Diarrhea, unspecified typeTremors of nervous system Sep-3 0 9 No Information OFFICE/OUTPA TIENT VISIT, [facility], [address] Ienbs639S1 3765616GTWinona, [place], [address], [place] tel:[phone] Family Medicine F1 Hospital F/U (chief complaint) Homelessness Hospital discharge follow-up Jan- 9 No Information OFFICE/OUTPA TIENT VISIT, [facility], [address] Nihad456J9 5853716SO- [facility], [place], [place], [address], [place] tel:[phone] Family Medicine F1 Invega Injection (chief complaint) Schizophreni a, unspecified type No Information OFFICE/OUTPA TIENT VISIT, [facility], [address] Bxllo055N9 5232349WTCloud [facility], [place], [place], [address], [place] tel:[phone] Family Medicine F1 Medication Management (chief complaint)Nee ds Note (chief complaint) Generalized Anxiety DisorderHype rtensionUrin hanane frequencyMix ed hyperlipidem ia No Information [facility], [address] Pnoru611Z7 4612054QJCloud County [facility], [place], [place], [address], [place] tel:[phone] Family Medicine F1 Pain in left foot 9 Suzanne Rodriguez. [address], [place], [address], [place]. [phone] Referring Provider: Michael Palacios, [address] [place], [address] . tel:[phone] [facility], [address] Yctxu144S6 2540580KAMercy Regional [facility], [place], [place], [address], [place] tel:[phone] Family Medicine F1 No Information 9 No Information OFFICE/OUTPA TIENT VISIT, [facility], [address] Lnnqr851V7 4607272BOWinona, [place], [address], [place] tel:[phone] Family Medicine F1 Left foot pain (chief complaint) Left foot painHomeless ness 9 No Information [facility], [address] Gkeso384J8 7148909FBWatkins, [place], [address], [place] tel:[phone] Family Medicine F1 Homelessness 9 Health [facility]. [address], [place], [address], [place]. tel:[phone] Referring Provider: [facility], [address] [place], [address] . tel:[phone] OFFICE/OUTPA TIENT VISIT, EST [facility], [address] Mxjky197D8 2960506DK- [place], [place], [address], [place] tel:[phone] Family Medicine Establish Care (chief complaint)walt elessness (chief complaint) Generalized Anxiety DisorderHype rtensionMixe d hyperlipidem iaHomelessne ss No Information [facility], [address] Yfgzm633B1 5417561SBWatkins, [place], [address], [place] tel:[phone] Family Medicine Homelessness 9 [facility]. [address], [place], [address], [place]. [phone] Referring Provider: [facility], [address] [place], [address] . tel:[phone] [facility], [address] Idfdg366L4 1819953VT- [place], [place], [address], [place] tel:[phone] [facility] Other specified counseling No Information [facility], [address] Hdyuv210X5 8875722CL- [place], [place], [address], [place] tel:[phone] [facility] No Information 9 Dakota Michel. [address] [place], [address], [place]. tel:[phone] Referring Provider: Anand Duncan, [address] [place], [address]. tel:[phone] [facility], [address] Qwoge078H9 7157090JT- [facility], [place], [place], [address], [place] tel:[phone] [facility] No Information 9 Dakota Michel. [address] [place], [address], [place]. tel:[phone] Referring Provider: Anand Duncan, [address] [place], [address]. tel:[phone] [facility], [address] Kcjkl534T5 1915996UMWatkins, [place], [address], [place] tel:[phone] [facility] No Information 8 Dakota Michel. [address] [place], [address], [place]. tel:[phone] Referring Provider: Anand Duncan, [address] [place], [address]. tel:[phone] OFFICE/OUTPA TIENT VISIT, [facility], [address] Wkumg712K8 7998366PXWatkins, [place], [address], [place] tel:[phone] [facility] Est. Care (chief complaint)Chr onic conditions (chief complaint) Hypertension Mixed hyperlipidem iaGeneralize d Anxiety DisorderHypo natremiaUrin hanane frequency 8 Dakota Michel. [address] [place], [address], [place]. tel:[phone] Referring Provider: Anand Duncan, [address] [place], [address]. tel:[phone] [facility], [address] Tkdkm534S4 9399954WWWatkins, [place], [address], [place] tel:[phone] [facility] No Information 3201 8 Dakota Michel. [address] [place], [address], [place]. tel:[phone] Family History Family Member Type Diagnosis Age At Onset No Information Immunizations Vaccine Date Status Comments Tdap (7 yrs and older) administered Note: VIS: 12/17/20 Patient had no reaction while in clinic. kw ; Source: New Immunization Record Flu Vaccine 6 Months and older administered Source: Public Agenc y Flu Vaccine 6 Months and older administered Note: pt reports at [facility] ; Source: Source Unspecified Payers Payer name Insurance type Covered green party ID Authorizbayron quiñones(s) M [facility] Dual Com plete Medica CI [id number] M [place] [employer] MC [id number] [facility] Dual Com plete Medica [place] [id number] M [place] Medicaid MC [id number] Social History Type Description Quantity Date Captured [...] counseling completed Referral Ordered: Ref[facility] ordered Referral Ordered: Referrals: Urology. Location: [facility]. Assume care ordered Referral Ordered: Referrals: physcial therapy. Location: [facility]. Evaluate and treat ordered Referral Ordered: AARP (related to Unemployment) ordered Referral Ordered: Referrals: Location: [facility] (related to Unemployment) ordered Referral Ordered: Referrals: Urology. Location: [facility]. Evaluate and treat ordered Referral Ordered: Referrals: Urology ordered Referral Ordered: Referrals: neurologist ordered Referral Ordered: Referrals: [place] ordered Referral Ordered: Referrals: Location: [facility] ordered Referral Ordered: Referrals: Urology. Consult ordered Patient Education Sciatica: Exercises com pleted Patient Education Sciatica: Care Instruct ions completed Patient Education Sciatica: Exercises com pleted Patient Education Low Back Pain: Exercise s completed Future Order: Lab Order [id number] linic/POC ([id number]), Appointment on: , Sent on: Sent Future Order: Lab Order COVID-19 PCR-JV ([id number]), Sent on: Sent Future Order: Radiology Order Ch est 2 Views ([id number]), Ordered on: Ordered History Of Present Illness Encounter Date Complaint History Of Prese nt Illness Medication Management Telephone appointment today.Robert reports he has moved to [place] and is needing his injection sent to the Pharmacy in [place] to make sure he does not miss a dosage. He states he relocated there with his brother.He states he could not take it anymore in [place], and needed to get out of town.He denies SI/HI/AH/VH.He has no complaints or concerns at this time.Plans on establishing care in [place] for Psychiatric Care. Schizoaffective disorder This is [...] denies any associated symptoms. Generalized Anxiety Disorder [facility] care Patient here todaniel rodriguez to establish careH: Parkinson's diseaseMedications: reviewed Allergies: reviewed Social history: homeless Patient has issues with prediabetes, hyperlipemia, schizophrenia, BPHVocation: He is religion, he is currently homeless Social Support: [place]. 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 Patient is stimulated with Manic laugh. [...] He would like to see urology at [facility] for his bladder and BPH- [...] with a friend. Was recently seen in [facility] and encouraged to follow up with PCP. When discussing appointment with patient today, he states everything is fine. He denies SI/HI/AH/VH. He feels his tremors have decreased with cogentin. He is slightly dishevel in appearance. He has a laundry bag with him today, and states he is going to go to the protein chemist after this appointment. He is alert and [...] Tele-Session don e due to contract with [facility] to provide off-site services; Verbal consent from Patient received; All Medications to be e-scribed through NEXT GEN -Chief Complaint / Establish care - ADMITTED TO [facility] FOR 10 DAYS IN JULY 2021 FOR REPORTING SUICIDAL THOUGHTS -PERRECORD - HAS HISTORY OF VERBAL AND PHYSICAL AGGRESSION - INNAPPROPRIATE SEXUAL BEHAVIORS - MANIC AND POSSIBLE MANIPULATIVE BEHAVIORS AND NON COMPLIANCE TO TREATMENT - HOMELESS -WITH POOR INS[facility]CHARG[facility] ON INVEGA SUSTENNA 156MG [...] of Delusion:-YES- Past/ I GET SPIRITS- HYPER LATTER DAY THOUGHTS - AND PARANOIA Reports Hx of [...] Alcohol- ; DENIED SOCIAL HISTORYLiving Situation [facility] Martial [facility]-; Children - NONE Highest Education- 6TH GRADE Occupation/Work History- Disabled; 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 Has a hx of hematuria. Has [...] he is seeing a urologist-Dr. Campuzano at [facility]. Pt reports that he would like to change clinics. He has surgery for his bladder in December and is wanting to see a different provider and would like to go to [facility]. Blood in stool Pertinent negati ves include abdominal distention, abdominal pain, bloating, change in bowel habits, constipation, decreased appetite, diarrhea, dysphagia, heartburn, nausea, perirectal itching, rectal pain, rectal pain associated with bleeding, vomiting and weight loss. Additional information: Pt had colonoscopy at [facility] last year. Has had this off [...] of Flomax and refer for Urologist at [facility] at this time. WBC is low [...] medication. No SI or HI. Has a inside tester, Cr, at [facility]. Shortness of breath In the inter [...] this. Follow Up of Schizophrenia The senthil coaets does not present with anxious/fearful thoughts, depressed [...] behaviors were discussed; illegal drugs, prescription drugs, yogu-zzd-xbbyyvb drugs, gambling, alcohol, tobacco and vaping.Reports alcoholism, [...] of the time. HTNBPHHyperlipidemiaSocial History:[facility] Social Supports were discussed; sabianist, family/friendships, therapy, and cultural/ethnic/community supports. I believe in GodPatient reports having support from God, ERROL-Cr, familySexual Orientation: born male, ID male, heterosexualMarital Status: girlfriendNumber of times /: 1/0/is . Children: noneMilitary Service: deniesLegal Information (guardian, probation, parole):Reports hx of incarcerationHas current charge for trespassing [facility] History:Denies inutero exposure to drugs/alcoholMet milestones on [...] Care PHQ 0.Seeing a n eurologist at [facility]-for parkinsons dslast colonoscopy was 5 years ago-has an appt with GI doctor in 1 week-to establish care: Dr. Haeys Body aches, nausea, Body aches, nausea, (comments) [...] diarrhea today. 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 Pt requesting OTC medications prescribed. [...] note stati james he was here for [place]. Left foot pain Location: left f oot. [...] cations without change. E-scribed Invega Injection to [facility]. 2. Will be seen again if [...] to the clinic in 3 months for T9dUsypgmcw good foot hygiene, wear closed toed shoes. 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 Continue all [...] Related t o Undifferentiated schizophrenia referral to [facility]- he has seen urology before [...] d Related to Chronic cough Follow w D. 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 labs todayAbx todayreturn as nee ded Related to Benign prostatic hyperplasia with urinary frequency A1c was normal today continue current plan of care- no medications needed todayfollow up in 2 months Related to Prediabetes Covid Test todayPlan based on results- likely NEG today Related to Acute cough Uncontrolledfollow up w Caroline Godwin gs Related to Schizoaffective disorder, bipolar type Dietary management e [...] Related t o Schizophrenia, unspecified type Pt did not want to g o back to the hospital. Pt will not take his meds. Did not want to hurt himself or others. Appointment made with [facility]. Related to Other schizophrenia Pt will not take his meds. Pt advised to make an appointment with his PCP to discuss. Advised to seek medical if he has severe headache, ringing in the ears, severe nose bleeds or acute vision issues. Related to Hypertension Positive for flu A. Push Fluids. Good [...] wishes to have this completed at the [place] location due to nurse preference. I offered [...] EC. Reviewed methods to eradicate in apartment, ems manager is scheduled for tomorrow. Pt is aware of signs and sxs to contact the clinic for further treatment. Related to Infestation by bed bug Will call pt to repo rt lab results and further plan of care including adjustments to medication if indicated and recommendations for f/u. Related to Other intermediate card tender (current) drug therapy Sign ROR for colonos [...] f/u.[facility] [facility]. ROR for Dr. Ortega's office to [...] PRN with any issues Related to Other intermediate card tender (current) drug therapy Weight control education Related to Other intermediate card tender (current) drug therapy Hypertension education Related t o Other senior care (current) drug therapy 1. Patient will be [...] Referral for assiste d living per nurse career guidance technician. Related to Homelessness Xray left foot today will call with results. Related to Left foot pain Resources provided. Education/counseling provided. Transpiration provided. Related to Homelessness Medications refilled. Related to Mixed hyperlipidemia Medications refilled. Related to Generalized Anxiety Disorder Medications refilled. Related to Hypertension We will DC Flomax du e to [...] call 911 [facility]6 [facility] for [...]
[2024-08-12 08:41] VITALS: BP 143/101; BMI 36.0
[2024-11-13 22:04] VITALS: BP 154/78; PULSE 85; RESP 16; TEMP 37; O2SAT 96; BMI 27.8
--- NOTE | 2024-11-13 22:15 | CTR_ITS ---
PROCEDURE INFORMATION: Exam: CT Abdomen And Pelvis With Contrast Exam date and time: 11/13/2024 11:20 PM Age: 64 years old Clinical indication: Abdominal pain; Generalized; Additional info: Abd pain TECHNIQUE: Imaging protocol: Computed tomography of the abdomen and pelvis with contrast. Radiation optimization: All CT scans at this facility use at least one of these dose optimization techniques: automated exposure control; mA and/or kV adjustment per patient size (includes targeted exams where dose is matched to clinical indication); or iterative reconstruction. Contrast material: ALEJANDRINA 350; Contrast volume: 100 ml; Contrast route: INTRAVENOUS (IV); COMPARISON: CT abdomen pelvis w con* [id number] 05/15/2024 3:44 PM RADIATION DOSE METRICS: Total DLP (mGy-cm): 1056.82 FINDINGS: Liver: Normal. No mass. Gallbladder and biliary ducts: Normal. No calcified stones. No ductal dilation. Pancreas: Normal. No ductal dilation. Spleen: Calcified splenic granulomas. Stable splenic cyst. Adrenal glands: Normal. No mass. Kidneys and ureters: Multiple left renal hypodensities with the largest measuring < 1.0 cm, too small to further characterize. Stomach and bowel: Unremarkable. No obstruction. No mucosal thickening. Appendix: No evidence of appendicitis. Intraperitoneal space: Unremarkable. No free air. No significant fluid collection. Vasculature: Calcification of the abdominal aorta and/or iliac arteries consistent with atherosclerotic vessel disease. One or more calcified pelvic phleboliths. Lymph nodes: Unremarkable. No enlarged lymph nodes. Urinary bladder: Unremarkable as visualized. Reproductive: Stable TURP procedure. Bones/joints: Levoscoliosis. Mild to moderate multilevel spine degenerative changes including degenerative disc disease, spondylosis and facet degenerative changes. Soft tissues: Unremarkable. CT/CT abdomen pelvis w con* [id number] IMPRESSION: No acute findings. COMMENTS: Consistent with the [employer]'s Incidental Findings Committee white paper (J Am Moises Radiol 2018): Any incidental renal lesion less than 1 cm or classified as too small to characterize, or any incidental cystic renal lesion characterized as simple-appearing, is likely benign. No follow-up imaging is recommended for these lesions per consensus recommendations based on imaging criteria.
--- OUTSIDE RECORDS SUMMARY | 2024-11-13 22:17 | XMS_ITS | Clinical Summary ---
Author Organization [facility] Address [address] Attn: Epic Prelude ADT [place] [id number] Care Team Providers Care Door Builder Name Role Phone Unavailable Primary Care Provider Unavailabl e Allergies Active Allergy Reactions Criticality Noted Date Comments Lactose Diarrhea Medium 08/03/2022 [place] Anaphylaxis,Other (S ee Comments) High 05/02/2018 Vomiting [...] admission 06/15 Borderline diabetes 06/20/2021 Atherosclerosis of [place] co ronary artery of [place] heart without angina pectoris 06/13/2021 Benign prostatic [...] week 07/09/2021 How often do you attend [facility] or congregational services? More than 4 times per year [...] place to sleep or slept in a [facility] (including now)? Yes 07/09/2021 Education Answer Date Recorded What is the highest level of school you have completed or the highest degree you have received? 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[employer] Gender Identity Not on file Sexual Orientation [...] - Risk 60-74 years 1-dose series) 2022 COLORECTAL SCREENING 04/30/2024 04/30/2019, 04/30/20 19 Colorectal Cancer Screening 04/30/2024 INFLUENZA VACCINE (#1) 2024 08/03/2022, 2018 Procedures Procedure Name Priority Date/Time Associated Diagnosis Comments COLONOSCOPY REPORT 04/30/2019 4:17 PM AUTO TOP MECHANIC from Last 3 Months or Most Recently Relevant to Health Maintenance Results * COLONOSCOPY REPORT (04/30/2019 4:17 PM AUTO TOP MECHANIC) Teofilo Graves MD GI PROCEDURE ORDERABL ES Final Result from Last 3 Months or Most Recently Relevant to Health Maintenance Insurance MEDICAID [facility] DUAL COMPLETE HMO [facility] [id number] RX [employer] RX Member Subscriber Plan / Payer (Ef fective 2021-Present) Name:Benedicto Amaral Relation to Subscriber:Self Name:Benedicto Amaral Subscriber ID:Not on file Payer ID:Not on file Group ID:[id number] Type:RX Medicare Part D Address: [place] [facility] MEDICARE [id number] Advance Directives For more information, please contact: [phone] * Full Code (Latest Code Status on [...]
[2024-11-13 23:13] LABS: Hematocrit 35.3 % (37-53); Hemoglobin 11.40 g/dL (11.27-16.99); Mean Corpuscular HGB Conc 32.3 g/dL (30-55); Mean Corpuscular Hemoglobin 28.6 pg (27-33); Mean Corpuscular Volume 88.7 fl (82-101); Nucleated Red Blood Cells % 0 %; Platelet Count 282 10^3/cmm (157-399); Red Blood Count 3.98 10^6/uL (3.85-5.65); White Blood Count 6.26 10^3/uL (3.29-11.43)
[2024-11-13] MEDS: iohexol 350 mg/mL 500 mL Btl (per mL) IV (23:16)
[2024-11-13 23:28] LABS: Alanine Aminotransferase 11 U/L (0-41); Albumin Level 3.6 g/dL (3.5-5.2); Alkaline Phosphatase 78 U/L (40-130); Anion Gap 14.7 (5-19); Aspartate Amino Transferase 13 U/L (0-40); Blood Urea Nitrogen 10 mg/dL (8-23); Calcium 8.6 mg/dL (8.5-10.5); Carbon Dioxide 26 mmol/L (22-29); Chloride 92 mmol/L (98-107); Creatinine Clr Calc Pharmacy 126.0802; Globulin 2.4 g/dL (1.3-4.6); Glucose 144 mg/dL (65-115); Lipase 38 U/L (13-60); Osmolality Calculated 270 mOsm/kg (285-295); Potassium 3.7 mmol/L (3.5-5.1); Sodium 129 mmol/L (136-145); Total Protein 6.0 g/dL (6.6-8.7)
--- NOTE | 2024-11-14 00:54 | W.ED.ABDPA2 ---
HPI - Abdominal Pain General: Chief Complaint: Abdominal Pain Stated Complaint: what's cleaned up Time Seen by Provider: 11/13/24 22:08 History of Present Illness: Patient presents emerged part with multiple complaints. He has a history of schizophrenia and bipolar disorder. He states that he had a bowel movement in his pants and so he called EMS because he wanted to come to the emergency department and have a nurse clean him up . He is specifically asking for a female nurse to clean him up. Upon my exam he also states that he has had abdominal pain as well as back pain and chest pain and headache although at present he states he only has abdominal pain. Is a very difficult historian. Related Data Home Medications ?Medication ?Instructions ?Recorded ?Confirmed simvastatin 40 mg tablet 40 mg PO BEDTIME 02/19/24 11/06/24 cetirizine 10 mg tablet 10 mg PO DAILY 05/05/24 11/06/24 losartan 25 mg tablet 25 mg PO DAILY 10/29/24 11/06/24 paliperidone palmitate 234 mg/1.5 234 mg IM Q30D 10/29/24 11/06/24 mL intramuscular syringe (Invega Sustenna) paliperidone 3 mg tablet,extended 3 mg PO QAM 11/06/24 11/06/24 release 24 hr sodium chloride 1,000 mg soluble 1,000 mg PO BID 11/06/24 11/06/24 tablet Previous Rx's ?Medication ?Instructions ?Recorded metformin 500 mg tablet 500 mg PO BIDWM 30 days #60 tabs 09/22/24 metoprolol tartrate 25 mg tablet 25 mg PO BID 30 days #60 tabs 09/22/24 divalproex 500 mg tablet,extended 500 mg PO BID #60 tabs 11/05/24 release 24 hr (Depakote ER) risperidone 1 mg tablet (Risperdal) 1 mg PO BID #60 tabs 11/05/24 cephalexin 500 mg capsule 500 mg PO Q12H 7 days #14 caps 11/07/24 Allergies Allergy/AdvReac Type Severity Reaction Status Date / Time lithium Allergy ADR-Nausea Verified 11/09/24 11:40 oxycodone (From OxyContin) Allergy nausea Verified 11/09/24 11:40 Penicillins Allergy ALGY-Difficulty Verified 11/09/24 11:40 Breathing PFSH ED PFSH: Medical History Cellulitis and abscess of left leg Chronic hyponatremia Schizoaffective disorder, bipolar type Seasonal allergies History of Parkinson's disease Hyperlipidemia Hypertension Psychiatric care Family History Father Cancer stomach Mother Cancer ovarian Social History Smoking and tobacco/nicotine status: former use of tobacco/nicotine Quit status (tobacco/nicotine): has quit using Year quit tobacco: Roughly 2014 Alcohol intake: current Alcohol intake frequency: holidays/special occasions only Substance/Drug Use: former Additional social history: Patient states he lives alone he would like full CODE STATUS as discussed 11/06/2024. He states that also if he saw [facility] he would want to go forward to [facility] Adopted: No Caregiver/support person: No Lives independently: Yes Household members: none Housing: Apartment Marital status: / Number of children: 1 Number of grandchildren: 2 Highest education level completed: 8th Grade Current occupational status: unemployed Pets and animals: No Leisure activites: exercise and clubs Sexually active: No Do you think of yourself as: Straight/Heterosexual Current gender identity: Male Janelle/Pentecostal: Mormonism Special janelle needs: No Agree to transfusion: Yes Physical Exam Const: COMMON NORMALS: no acute distress, average body habitus, patient oriented x3, no limitations, healthy appearing, alert and well nourished Neck/C-Spine: COMMON NORMALS: no JVD Cardio: COMMON NORMALS: no JVD, regular rate, regular rhythm, S1 normal heart sound present, S2 normal heart sound present, No gallops present (Cardio), No clicks present (Cardio), No murmurs present (Cardio), No rub (Cardio) and Peripheral pulses 2+ throughout RATE: regular rate RHYTHM: regular rhythm HEART SOUNDS: S1 normal heart sound present and S2 normal heart sound present PERIPHERAL PULSES: Peripheral pulses 2+ throughout GI: COMMON NORMALS: Normal to inspection, nondistended, normoactive bowel sounds present, Soft to palpation, non-tender, No hepatosplenomegaly present, no masses and no bruits PALPATION: Yes Soft to palpation and Yes No hepatosplenomegaly present Neuro: COMMON NORMALS: patient oriented x3 SENSORIUM/ORIENTATION: Yes alert Psych: OTHER: Patient is acting appropriately. Especially acting appropriate towards female staff. He yells frequently and is also very quick to change his behavior from cooperative to belligerent. He does however repeatedly deny suicidal ideation and states that he does not want to be admitted for psychiatric care. Course Vital Signs: Vital signs: Vital Signs Temperature 98.6 F 11/13/24 22:04 Pulse Rate 85 11/13/24 22:04 Respiratory Rate 16 11/13/24 22:04 Blood Pressure 154/78 11/13/24 22:04 Pulse Oximetry 96 11/13/24 22:04 Oxygen Delivery Me thod Room Air 11/13/24 22:04 MDM - Abdominal Pain Medical Decision Making Patient presents emerged part with multiple complaints. He has a history of schizophrenia and bipolar disorder. He states that he had a bowel movement in his pants and so he called EMS because he wanted to come to the emergency department and have a nurse clean him up . He is specifically asking for a female nurse to clean him up. Upon my exam he also states that he has had abdominal pain as well as back pain and chest pain and headache although at present he states he only has abdominal pain. Is a very difficult historian. Medical screening exam was performed and patient including labs and CT of the abdomen and no significant abnormality were noted on labs or imaging. Patient is inappropriate towards female staff. He changes his story of why he came to the emergency department several times. He is however oriented to person place and time and he does not deny any suicidal ideation. Do not see any reason to keep the patient or admit him at this time. Lab Data 11/13/24 22:56 11/13/24 22:56 Labs/Radiology: Radiology Impressions Abdomen/Pelvis CT 11/13/24 22:15 IMPRESSION: No acute findings. COMMENTS: Consistent with the [employer]'s Incidental Findings Committee white paper (J Am Moises Radiol 2018): Any incidental renal lesion less than 1 cm or classified as too small to characterize, or any incidental cystic renal lesion characterized as simple-appearing, is likely benign. No follow-up imaging is recommended for these lesions per consensus recommendations based on imaging criteria. Laboratory Results WBC 6.26 10^3/uL (3.29-11.43) 11/13/24 22:56 RBC 3.98 10^6/uL (3.85-5.65) 11/13/24 22:56 Hgb 11.40 g/dL (11.27-16.99) 11/13/24 22:56 Hct 35.3 % (37-53) L 11/13/24 22:56 MCV 88.7 fl (82-101) 11/13/24 22:56 MCH 28.6 pg (27-33) 11/13/24 22:56 MCHC 32.3 g/dL (30-55) 11/13/24 22:56 RDW 13.9 % (12.1-15.1) 11/13/24 22:56 Plt Count 282 10^3/cmm (157-399) 11/13/24 22:56 MPV 9.1 fL (7.4-10.4) 11/13/24 22:56 Neut % (Auto) 50.7 % 11/13/24 22:56 Lymph % (Auto) 28.8 % 11/13/24 22:56 [place] % (Auto) 10.5 % 11/13/24 22:56 Eos % (Auto) 8.9 % 11/13/24 22:56 Baso % (Auto) 0.8 % 11/13/24 22:56 Neut # (Auto) 3.17 10^3/uL (1.8-7.7) 11/13/24 22:56 Lymph # (Auto) 1.8 10^3/uL (0.8-4.8) 11/13/24 22:56 [place] # (Auto) 0.7 10^3/uL (0.2-0.9) 11/13/24 22:56 Eos # (Auto) 0.6 10^3/uL (0.0-0.8) 11/13/24 22:56 Baso # (Auto) 0.1 10^3/uL (0.0-0.1) 11/13/24 22:56 Nucleated RBC % (auto) 0 % 11/13/24 22:56 Nucleated RBCs # 0.0 /100WBC 11/13/24 22:56 Sodium 129 mmol/L (136-145) L 11/13/24 22:56 Potassium 3.7 mmol/L (3.5-5.1) 11/13/24 22:56 Chloride 92 mmol/L (98-107) L 11/13/24 22:56 Carbon Dioxide 26 mmol/L (22-29) 11/13/24 22:56 Anion Gap 14.7 (5-19) 11/13/24 22:56 BUN 10 mg/dL (8-23) 11/13/24 22:56 Creatinine 0.7 mg/dL (0.7-1.2) 11/13/24 22:56 GFR Calculation 114.3 mL/min (90-130) 11/13/24 22:56 Glucose 144 mg/dL (65-115) H 11/13/24 22:56 Calculated Osmolality 270 mOsm/kg (285-295) L 11/13/24 22:56 Calcium 8.6 mg/dL (8.5-10.5) 11/13/24 22:56 Total Bilirubin 0.5 mg/dL (0.15-1.2) 11/13/24 22:56 AST 13 U/L (0-40) 11/13/24 22:56 ALT 11 U/L (0-41) 11/13/24 22:56 Alkaline Phosphatase 78 U/L (40-130) 11/13/24 22:56 Total Protein 6.0 g/dL (6.6-8.7) L 11/13/24 22:56 Albumin 3.6 g/dL (3.5-5.2) 11/13/24 22:56 Globulin 2.4 g/dL (1.3-4.6) 11/13/24 22:56 Lipase 38 U/L (13-60) 11/13/24 22:56 All radiology interpretation(s) finalized by discharge Discharge Plan Discharge Patient Disposition: Home Clinical Impression: Encounter for medical screening examination, Schizoaffective disorder, bipolar type Condition: Stable Prescriptions: No Action simvastatin 40 mg tablet 40 mg PO BEDTIME Invega Sustenna 234 mg/1.5 mL syringe 234 mg IM Q30D Rx Instructions: Injection every 28 days Received at [facility] today, 10/29/24 divalproex [Depakote ER] 500 mg tablet extended release 24 hr 500 mg PO BID Qty: 60 3RF risperidone [Risperdal] 1 mg tablet 1 mg PO BID Qty: 60 3RF losartan 25 mg tablet 25 mg PO DAILY cetirizine 10 mg tablet 10 mg PO DAILY metformin 500 mg Tablet 500 mg PO BIDWM 30 Days Qty: 60 1RF metoprolol tartrate 25 mg tablet 25 mg PO BID 30 Days Qty: 60 1RF sodium chloride 1,000 mg tablet,soluble 1,000 mg PO BID paliperidone 3 mg tablet extended release 24hr 3 mg PO QAM cephalexin 500 mg capsule 500 mg PO Q12H 7 Days Qty: 14 0RF Discharge Orders: Discharge ED (Routine); Ordered 11/14/24 Ordered By: Caleb Bruno Referrals: Shemar Arcos MD [Primary Care Provider, Family Practice] Discharge Diet: Advance as tolerated Discharge Activity: Resume usual activity Patient Instructions: Opioid Safety, Pain Management, Patient Portal & [place] Instructions Print Language: Scottish Coding Level of Care Code ED Hearing Impaired Itinerant Teacher for Brien Loomis
--- NOTE | 2024-11-14 01:44 | PC.NURSE ---
This nurse attempted to call the following siblings-- Lenora, Fabrice, and Tiago --to pickup patient at time of discharge. Nobody answered the phone.
[2024-11-14 02:09] VITALS: BP 149/81; PULSE 81; RESP 17; O2SAT 97
== END 2024-11-14 02:09 | disposition home or self-care (01) ==
PROVIDERS: Emergency Provider Emergency Medicine; PCP Family Medicine
DX: Z00.00 Encounter for general adult medical examination without abnormal findings (principal); F25.0 Schizoaffective disorder, bipolar type; Z87.891 Personal history of nicotine dependence; E78.5 Hyperlipidemia, unspecified; I10 Essential (primary) hypertension
CPT/HCPCS: 36415; 74177; 80053; 83690; 85025; 99285

== ENCOUNTER 2024-11-15 10:05 | Emergency (ER) | payer OTHER, MEDICAID, SELFPAY ==
--- OUTSIDE RECORDS SUMMARY | 2022-04-14 10:31 | XMS_ITS | Continuity of Care Document ---
Author Organization [facility] Address [address] [id number] [address] Phone Care Team Providers Care Bushwalking Guide Name Role Phone Anand Duncan NP Unavailable [...] Diagnoses Date Provider Providers Copied on Encounter [facility], [address]zxye888W2 9707548AY- [facility], [place], [place], [address], [place] tel:[phone] [facility] No Information 2 Dakota Anand. [address] [place], [address], [place]. tel:[phone] [facility], [address] Xelzi642X5 8187635GX- [place], [address], [place] tel:[phone] Behavioral Medicine F2 Medication Management (chief complaint)Eder izoaffective disorder (chief complaint)Gen eralized Anxiety Disorder (chief complaint) Schizoaffect filemon disorder, bipolar typeGenerali zed anxiety disorder Sep- 2 Kendrick Cabrera. [address], [place], [address], [place]. tel:[phone] Referring Provider: Deborah Marks, [address] [place], [address] . tel:[phone] [facility], [address] Xctgh353U8 2207401NY- [place], [address], [place] tel:[phone] Vision F1 Encounter for fit/adjst of spectacles and contact lenses Jan- 2 Genia Aponte. [address], [place], [address], [place]. tel:[phone] Referring Provider: Fay Cormier , [address] [place], [address] . tel:[phone] [facility], [address] Zbyrg684M7 5362102NL- [place], [address], [place] tel:[phone] [facility] No Information Jan-0 2 No Information [facility], [address] Fclom240P0 5653341XWMindenm[place], [place], [address], [place] tel:[phone] Behavioral Medicine F2 Schizoaffect filemon disorder, bipolar type Jan- 2 Kendrick Cabrera. [address], [place], [address], [place]. tel:[phone] Referring Provider: Deborah Marks, [address] [place], [address] . tel:[phone] OFFICE/OUTPA TIENT VISIT EST [facility], [address] Unrys789M5 3703501OS- [place], [address], [place] tel:[phone] [facility] Est care (chief complaint) Hypertension PrediabetesM ixed hyperlipidem iaEncounter for immunization Jan-0 2 Horacio Blackman. [address] [place], [address], [place]. tel:[phone] Referring Provider: Hiral Leonard, [address] [place], [address]. tel:[phone] [facility], [address] Xlfsq102D6 0367396VT- [place], [address], [place] tel:[phone] Behavioral Medicine F2 Medication Management (chief complaint)Eder izoaffective disorder (chief complaint)Gen eralized Anxiety Disorder (chief complaint) Schizoaffect filemon disorder, bipolar typeGenerali zed anxiety disorder 2 Kendrick Cabrera. [address], [place], [address], [place]. tel:[phone] Referring Provider: Deborah Marks, [address] [place], [address] . tel:[phone] [facility], [address] Ubnob353E5 0251239GG- [place], [address], [place] tel:[phone] Vision F1 blurry vision (chief complaint) Hypermetropi a, bilateralReg ular astigmatism, bilateralPre sbyopiaAge-r elated nuclear cataract, bilateral 2 Genia Aponte. [address], [place], [address], [place]. tel:[phone] Referring Provider: Fay Cormier , [address] [place], [address] . tel:[phone] [facility], [address] Sywhw374M0 2181108YUMindenmines, [place], [address], [place] tel:[phone] Behavioral Medicine F2 Medication Management (chief complaint)Eder izophrenia (chief complaint)Gen eralized Anxiety Disorder (chief complaint) Undifferenti ated schizophreni aGeneralized anxiety disorder 2 Kendrick Cabrera. [address], [place], [address], [place]. tel:[phone] Referring Provider: Deborah Marks, [address] [place], [address] . tel:[phone] [facility], [address] [place] [address], [address], [place] tel:[phone] Behavioral Medicine F2 Schizoaffect filemon disorder, bipolar type 2 Kendrick Cabrera. [address], [place], [address], [place]. tel:[phone] Referring Provider: Deborah Marks, [address] [place], [address] . tel:[phone] [facility], [address] [place] [address], [address], [place] tel:[phone] Behavioral Medicine F2 Medication Management (chief complaint)Anx iety (chief complaint)und ifferentiated schizophrenia (chief complaint) Generalized anxiety disorderUndi fferentiated schizophreni a 2 Kendrick Cabrera. [address], [place], [address], [place]. tel:[phone] Referring Provider: Deborah Marks, [address] [place], [address] . tel:[phone] OFFICE/OUTPA TIENT VISIT EST [facility], [address] Xwfax868L9 8250517IGMindenm[place], [place], [address], [place] tel:[phone] Behavioral Medicine F2 Hyperglycemia (chief complaint) Hyperglycemi aType 2 diabetes mellitus without complication s 2 Dakota Michel. [address] [place], [address], [place]. tel:[phone] Referring Provider: Anand Duncan, [address] [place], [address]. tel:[phone] [facility], [address] Zqqac273R9 9518261EEMindenm[place], [place], [address], [place] tel:[phone] Behavioral Medicine F2 Medication Management (chief complaint)Eder izophrenia (chief complaint)Gen eralized Anxiety Disorder (chief complaint) Undifferenti ated schizophreni aGeneralized Anxiety Disorder 2 Kendrick Cabrera. [address], [place], [address], [place]. tel:[phone] Referring Provider: Deborah Marks, [address] [place], [address] . tel:[phone] OFFICE/OUTPA TIENT VISIT, [facility], [address] Gwrkg968L4 8527761UMMindenm[place], [place], [address], [place] tel:[phone] Behavioral Medicine F2 EPS (chief complaint) Extrapyramid al and movement disorder 2 Dakota Michel. [address] [place], [address], [place]. tel:[phone] Referring Provider: Anand Duncan, [address] [place], [address]. tel:[phone] OFFICE/OUTPA TIENT VISIT [facility], [address] Kzhem931A2 9303451OKMindenm[place], [place], [address], [place] tel:[phone] Behavioral Medicine F2 Counseling (chief complaint) Counseling and coordination of careHypergly cemiaHyponat remia 2 Dakota Michel. [address] [place], [address], [place]. tel:[phone] Referring Provider: Anand Duncan, [address] [place], [address]. tel:[phone] [facility], [address] Bbtgp742F3 7442851CJ- [place], [place], [address], [place] tel:[phone] Behavioral Medicine F2 Medication Management (chief complaint)Eder izophrenia (chief complaint)Gen eralized Anxiety Disorder (chief complaint) Undifferenti ated schizophreni aGeneralized Anxiety Disorder 2 Kendrick Cabrera. [address], [place], [address], [place]. tel:[phone] Referring Provider: Deborah Marks, [address] [place], [address] . tel:[phone] OFFICE/OUTPA TIENT VISIT [facility], [address] Qxpqo322G7 1949315UDMindenm[place], [place], [address], [place] tel:[phone] Behavioral Medicine F2 Follow Up (chief complaint) Benign prostatic hyperplasia with urinary frequencySch izophrenia, unspecified type 2 Dakota Michel. [address] [place], [address], [place]. tel:[phone] Referring Provider: Anand Duncan, [address] [place], [address]. tel:[phone] OFFICE/OUTPA TIENT VISIT, [facility], [address] Amcjf781I2 7946724YQMindenmines, [place], [address], [place] tel:[phone] [facility] Weakness (chief complaint) WeaknessChro lizet cough 2 Bina Aponte. [address], [place], [address], [place]. tel:[phone] Referring Provider: Fadi Curran, [address] [place], [address] . tel:[phone] OFFICE/OUTPA TIENT VISIT EST [facility], [address] Tyuxd426K2 8981831WQ- [place], [address], [place] tel:[phone] Behavioral Medicine F2 Several Concerns (chief complaint) Acute coughSchizoa ffective disorder, bipolar typePrediabe tesBenign prostatic hyperplasia with urinary frequencyExt rapyramidal and movement disorderRash and other nonspecific skin eruptionHema turia, unspecified 2 Dakota Michel. [address] [place], [address], [place]. tel:[phone] Referring Provider: Anand Duncan, [address] [place], [address]. tel:[phone] [facility], [address] Qowhn399C2 5362262QV- [place], [address], [place] tel:[phone] Behavioral Medicine F2 Schizoaffect filemon disorder, bipolar type 2 Kendrick Cabrera. [address], [place], [address], [place]. tel:[phone] Referring Provider: Deborah Marks, [address] [place], [address] . tel:[phone] [facility], [address] Ucfno809C9 8348573UX- [place], [address], [place] tel:[phone] Behavioral Medicine F2 Medication Management (chief complaint)Eder izophrenia (chief complaint) Undifferenti ated schizophreni aGeneralized Anxiety Disorder 2 Kendrick Cabrera. [address], [place], [address], [place]. tel:[phone] Referring Provider: Deborah Marks, [address] [place], [address] . tel:[phone] [facility], [address] Akcvc924C8 4795491HF- [place], [address], [place] tel:[phone] [facility] No Information 2 Jo Portillo. [address], [place], [address], [place]. tel:[phone] Referring Provider: Bandar Osorio, [address] [place], [address] . tel:[phone] OFFICE/OUTPA TIENT VISIT, [facility], [address] Sejuu286T0 8742552DQ- [place], [address], [place] tel:[phone] [facility] cough (chief complaint) CoughNasal congestion with rhinorrhea 2 Jo Portillo. [address], [place], [address], [place]. tel:[phone] Referring Provider: Bandar Osorio, [address] [place], [address] . tel:[phone] PSYTX PT&/FAMILY 30 MINUTES [facility], [address] Actkp424Z9 3477857GQ- [place], [address], [place] tel:[phone] [facility] Schizoaffect filemon disorder, bipolar type 2 Myron Houston. [address] [facility] , [place], [place], [address], [place]. tel:[phone] Referring Provider: Celso Sanches, [address] [place], [address] . tel:[phone] OFFICE/OUTPA TIENT VISIT [facility], [address] Lpyid576T8 3349252MC- [place], [address], [place] tel:[phone] Behavioral Medicine F2 Tremors (chief complaint) Schizoaffect filemon disorder, bipolar typeType 2 diabetes mellitus without complication , without long-term current use of insulinExtra pyramidal and movement disorderEsse ntial (primary) hypertension Other chcf (current) drug therapyPredi abetesTremor , unspecified Apr-0 2 Dakota Michel. [address] [place], [address], [place]. tel:[phone] Referring Provider: Anand Duncan, [address] [place], [address]. tel:[phone] OFFICE/OUTPA TIENT VISIT EST [facility], [address] Momyf846Q3 6085118GMMindenmines, [place], [address], [place] tel:[phone] Behavioral Medicine F2 URI (chief complaint) Acute bronchitis due to other specified organisms Mar-3 2 Dakota Michel. [address] [place], [address], [place]. tel:[phone] Referring Provider: Anand Duncan, [address] [place], [address]. tel:[phone] [facility], [address] Xzhat105A5 6684263XPMindenmines, [place], [address], [place] tel:[phone] Behavioral Medicine F2 new psych (chief complaint) Schizoaffect filemon disorder, bipolar type Mar-3 2 No Information OFFICE/OUTPA TIENT VISIT EST [facility], [address] Lxijr408C1 5629209JHCocoa, [place], [address], [place] tel:[phone] Behavioral Medicine F2 Injection (chief complaint) Schizophreni a, unspecified type Mar-2 2 Dakota Michel. [address] [place], [address], [place]. tel:[phone] Referring Provider: Anand Duncan, [address] [place], [address]. tel:[phone] PSYTX PT&/FAMILY 30 MINUTES [facility], [address] Jvzla806L7 0369458SD- [place], [address], [place] tel:[phone] [facility] Schizophreni a, unspecified type 2 Lyle Blunt. [address], [place], [address], [place]. tel:[phone] Referring Provider: Merlene Alvarenga, [address] [place], [address] . tel:[phone] OFFICE/OUTPA TIENT VISIT EST [facility], [address] Syqpk761P6 9280992TWCocoa, [place], [address], [place] tel:[phone] [facility] cough/ congestion (chief complaint)htn (chief complaint) Acute coughNasal congestion with rhinorrheaFl uOther schizophreni aHypertensio n 2 Jo Portillo. [address], [place], [address], [place]. tel:[phone] Referring Provider: Bandar Osorio, [address] [place], [address] . tel:[phone] [facility], [address] Jtday248W8 0208060AZMindenmines, [place], [address], [place] tel:[phone] [facility] No Information 2 Marjorie Moreno. [address], [place], [address], [place]. tel:[phone] Referring Provider: Tiffanie Amador, [address] [place], [address] . tel:[phone] [facility], [address] Ehduh256G1 0536942IECocoa, [place], [address], [place] tel:[phone] [facility] No Information 1 Evan Roque. [address], [place], [address], [place]. tel:[phone] Referring Provider: Mya Gusman, [address] [place], [address] . tel:[phone] OFFICE/OUTPA TIENT VISIT, [facility], [address] Dmfhj234F4 4659761XRMindenmines, [place], [address], [place] tel:[phone] Behavioral Medicine F2 Schizophreni a, unspecified type 1 Evan Roque. [address], [place], [address], [place]. tel:[phone] Referring Provider: Mya Gusman, [address] [place], [address] . tel:[phone] OFFICE/OUTPA TIENT VISIT [facility], [address] Rlnly318U9 1312042KRMindenmines, [place], [address], [place] tel:[phone] [facility] prediabetes (chief complaint)Silvia k pain (chief complaint)BPH (chief complaint) PrediabetesT ype 2 diabetes mellitus without complication , without long-term current use of insulinChron ic bilateral low back pain with right-sided sciaticaOthe r chronic painBenign prostatic hyperplasia with urinary frequency 1 Evan Roque. [address], [place], [address], [place]. tel:[phone] Referring Provider: Mya Gusman, [address] [place], [address] . tel:[phone] [facility], [address] Qrwks381H6 4689133SXMindenmines, [place], [address], [place] tel:[phone] [facility] No Information 1 Bina Aponte. [address], [place], [address], [place]. tel:[phone] Referring Provider: Fadi Curran, [address] [place], [address] . tel:[phone] OFFICE/OUTPA TIENT VISIT, EST [facility], [address] Hsidu041Y9 6185497LZ- [facility], [place], [place], [address], [place] tel:[phone] [facility] Right upper leg pain / burning for the past (chief complaint) Right sided sciatica Feb-2 1 Jaren Larson. [address], [place], [address], [place]. tel:[phone] Referring Provider: Marsha Eastman, [address] [place], [address] . tel:[phone] [facility], [address] Hjpov970J3 2471525LWMindenmines, [place], [address], [place] tel:[phone] Behavioral [facility] F2 Schizophreni a, unspecified type Feb- 1 Evan Roque. [address], [place], [address], [place]. tel:[phone] Referring Provider: Mya Gusman, [address] [place], [address] . tel:[phone] [facility], [address] Cnqeh966R2 1652988ZH- [place], [place], [address], [place] tel:[phone] Family Medicine F1 Change of job 0 1 [facility]. [address], [place], [address], [place]. tel:[phone] [facility], [address] Ewnbq084T9 5559759GY- [place], [place], [address], [place] tel:[phone] Behavioral [facility] F2 Schizophreni a, unspecified type Jan- 1 Evan Roque. [address], [place], [address], [place]. tel:[phone] Referring Provider: Mya Gusman, [address] [place], [address] . tel:[phone] OFFICE/OUTPA TIENT VISIT, [facility], [address] Xlhrx535S4 4959939LL- [place], [place], [address], [place] tel:[phone] [facility] Earache (chief complaint) Acute otitis externa of right ear, unspecified type 1 Evan Roque. [address], [place], [address], [place]. tel:[phone] Referring Provider: Mya Gusman, [address] [place], [address] . tel:[phone] OFFICE/OUTPA TIENT VISIT, [facility], [address] Eghfj865R4 5744022NRMindenmines, [place], [address], [place] tel:[phone] [facility] Schizophreni a, unspecified type 1 Evan Roque. [address], [place], [address], [place]. tel:[phone] Referring Provider: Mya Gusman, [address] [place], [address] . tel:[phone] [facility], [address] Hgvzf066M9 3160481JNMindenmines, [place], [address], [place] tel:[phone] Family Medicine F1 Cough 1 Med Crump. [address], [place], [address], [place]. tel:[phone] Referring Provider: Theron Jovel, [address] [place], [address] . tel:[phone] OFFICE/OUTPA TIENT VISIT [facility], [address] Myicu349T4 2375750EZCocoa, [place], [address], [place] tel:[phone] [facility] Viral syndrome (chief complaint)cou gh, congestion x 1 wk (chief complaint) Contact with and (suspected) exposure to other viral communicable diseasesVira l URI 1 Med Crump. [address], [place], [address], [place]. tel:[phone] Referring Provider: Theron Jovel, [address] [place], [address] . tel:[phone] [facility], [address] Zjfzh482G6 5715979KTMindenmines, [place], [address], [place] tel:[phone] Family Medicine F1 Unemployment 1 [facility]. [address], [place], [address], [place]. tel:[phone] [facility], [address] Oacdw233P4 0914361ZNMindenmines, [place], [address], [place] tel:[phone] Behavioral [facility] F2 No Information 1 Evan Roque. [address], [place], [address], [place]. tel:[phone] Referring Provider: Mya Gusman, [address] [place], [address] . tel:[phone] [facility], [address] Jnhob545F0 3830356GFMindenmines, [place], [address], [place] tel:[phone] [facility] behavioral health f/u (chief complaint)dep ression (chief complaint) Schizophreni a, unspecified type 1 Evan Roque. [address], [place], [address], [place]. tel:[phone] Referring Provider: Mya Gusman, [address] [place], [address] . tel:[phone] [facility], [address] Lxnol114D4 3370286UTMindenmines, [place], [address], [place] tel:[phone] [facility] Schizophreni a, unspecified type 1 Gordon Mya. [address], [place], [address], [place]. tel:[phone] Referring Provider: Mya Gusman, [address] [place], [address] . tel:[phone] [facility], [address] Ycpxw963K3 3224247WHMindenmines, [place], [address], [place] tel:[phone] [facility] Schizoaffecti ve disorder (chief complaint) Hypo-osmolal ity and hyponatremia Other watermaster (current) drug therapyMixed hyperlipidem iaSchizophre michaela, unspecified type 1 Evan Mya. [address], [place], [address], [place]. tel:[phone] Referring Provider: Mya Gusman, [address] [place], [address] . tel:[phone] [facility], [address] Nuvxq162R7 2975873UYMindenmines, [place], [address], [place] tel:[phone] [facility] Schizophreni a, unspecified type 1 Evan Roque. [address], [place], [address], [place]. tel:[phone] Referring Provider: Mya Gusman, [address] [place], [address] . tel:[phone] OFFICE/OUTPA TIENT VISIT, EST [facility], [address] Qfbqz817F2 9688736TWMindenmines, [place], [address], [place] tel:[phone] [facility] knots on legs (chief complaint) Worried well 1 Evan Roque. [address], [place], [address], [place]. tel:[phone] Referring Provider: Mya Gusman, [address] [facility], [place], [address] . tel:[phone] [facility], [address] Voddi213E1 0068521DV- [facility], [place], [place], [address], [place] tel:[phone] [facility] Schizophreni a, unspecified type Apr-2 1 Evan Mya. [address], [place], [address], [place]. tel:[phone] Referring Provider: Mya Gusman, [address] [facility], [place], [address] . tel:[phone] [facility], [address] Lgjar291I8 1613846WX- [place], [place], [address], [place] tel:[phone] [facility] Schizophrenia (chief complaint) Schizophreni a, unspecified type Mar-2 1 Evan Mya. [address], [place], [address], [place]. tel:[phone] Referring Provider: Mya Gusman, [address] [place], [address] . tel:[phone] OFFICE/OUTPA TIENT VISIT, [facility], [address] Tnycw309B6 8936728EP- [facility], [place], [place], [address], [place] tel:[phone] [facility] Dizziness (chief complaint) Dizzy Mar-0 1 Evan Mya. [address], [place], [address], [place]. tel:[phone] Referring Provider: Mya Gusman, [address] [place], [address] . tel:[phone] [facility], [address] Rpqvl109D6 9[facility]993[facility], [place], [place], [address], [place] tel:[phone] [facility] Schizophreni a, unspecified type Mar-0 1 Gordon Mya. [address], [place], [address], [place]. tel:[phone] Referring Provider: Mya Gusman, [address] [place], [address] . tel:[phone] [facility], [address] Hrulm015K0 2666744LXCocoa, [place], [address], [place] tel:[phone] [facility] Schizophreni a, unspecified type 1 Gordon Mya. [address], [place], [address], [place]. tel:[phone] Referring Provider: Mya Gusman, [address] [place], [address] . tel:[phone] [facility], [address] Qgcpb364B5 2923201HUMindenmines, [place], [address], [place] tel:[phone] Family Medicine F1 Schizophreni a, unspecified type 0 Gordon Mya. [address], [place], [address], [place]. tel:[phone] Referring Provider: Mya Gusman, [address] [place], [address] . tel:[phone] [facility], [address] Ctdrr389X4 4189297BXMindenmines, [place], [address], [place] tel:[phone] Behavioral Medicine F2 No Information 0 Gordon Mya. [address], [place], [address], [place]. tel:[phone] Referring Provider: Mya Gusman, [address] [place], [address] . tel:[phone] OFFICE/OUTPA TIENT VISIT, EST [facility], [address] Jnvlg244F9 2919394KM- [place], [place], [address], [place] tel:[phone] [facility] Referral for urologist (chief complaint)bed bugs (chief complaint)Blo od in stool (chief complaint) Urinary frequencyBlo od in stoolInfesta tion by bed bugOther watermaster (current) drug therapyPredi abetesBenign prostatic hyperplasia with urinary frequencyOth er microscopic hematuria Apr-0 7-202 0 Evan Roque. [address], [place], [address], [place]. tel:[phone] Referring Provider: Mya Gusman, [address] [place], [address] . tel:[phone] [facility], [address] Vcqkn742Z0 7705028AGMindenmines, [place], [address], [place] tel:[phone] [facility] Schizophreni a, unspecified type 0 0 Evan Roque. [address], [place], [address], [place]. tel:[phone] Referring Provider: Mya Gusman, [address] [place], [address] . tel:[phone] OFFICE/OUTPA TIENT VISIT EST [facility], [address] Veckw656I7 5413984OT- [place], [place], [address], [place] tel:[phone] [facility] Rash (chief complaint) Rash and other nonspecific skin eruption Mar-0 2202 0 Bina Aponte. [address], [place], [address], [place]. tel:[phone] Referring Provider: Fadi Curran, [address] [place], [address] . tel:[phone] [facility], [address] Ddapd537Y1 6989278QRCocoa, [place], [address], [place] tel:[phone] [facility] Schizophreni a, unspecified type Feb 0 Gordon Mya. [address], [place], [address], [place]. tel:[phone] Referring Provider: Mya Gusman, [address] [place], [address] . tel:[phone] [facility], [address] Sqnba905Z1 2559547AB- [place], [place], [address], [place] tel:[phone] [facility] Schizophreni a, unspecified type Sep-3 0 Gordon Mya. [address], [place], [address], [place]. tel:[phone] Referring Provider: Mya Gusman, [address] [place], [address] . tel:[phone] [facility], [address] Nhtkh517H7 4464758TLMindenmines, [place], [address], [place] tel:[phone] [facility] Schizophrenia (chief complaint) Schizophreni a, unspecified typeGenerali zed Anxiety Disorder 0 Gordon Mya. [address], [place], [address], [place]. tel:[phone] Referring Provider: Mya Gusman, [address] [place], [address] . tel:[phone] [facility], [address] Dbmxc950F2 1155059SJ- [place], [address], [place] tel:[phone] [facility] Generalized Anxiety Disorder Nov- 0 Evan Mya. [address], [place], [address], [place]. tel:[phone] Referring Provider: Mya Gusman, [address] [place], [address] . tel:[phone] [facility], [address] Vhbvs968V2 4760530AOMindenmines, [place], [address], [place] tel:[phone] Family [facility] F1 Schizophreni a, unspecified type 0 Gordon Mya. [address], [place], [address], [place]. tel:[phone] [id number] Referring Provider: Mya Gusman, [address] [place], [address] . tel:[phone] [facility], [address] Rbmbr482N7 2829849LCMindenmines, [place], [address], [place] tel:[phone] Family Medicine F2 schizophrenia (chief complaint) Schizophreni a, unspecified typeGenerali zed Anxiety Disorder 0 Gordon Mya. [address], [place], [address], [place]. tel:[phone] Referring Provider: Mya Gusman,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
[2024-08-12 08:41] VITALS: BP 143/101; BMI 36.0
[2024-11-15 10:06] VITALS: BP 160/93; PULSE 83; RESP 17; TEMP 36.4; O2SAT 96; BMI 29.9
--- NOTE | 2024-11-15 10:13 | W.ED.GENADLT ---
HPI - General Adult General: Chief complaint: General Medical Stated complaint: mhe Time Seen by Provider: 11/15/24 10:07 History of Present Illness: 62-year-old male presents emergency room via EMS. He states he needs mental spiritual and physical help. He denies being homicidal or suicidal he states he is thinks he is supposed to be schizophrenic and have bipolar but he is not sure. He was at [facility] last night in the emergency room from his description he was evaluated there and then left it sounds like AGAINST MEDICAL ADVICE. He took a cab back to [place] and went to his apartment. Earlier this morning he went to the post office and called the police saying he needed help. EMS brought him into the emergency room. He is concerned because his mother and father of cancer and he thinks he may have cancer but he has no specific symptoms. He states he occasionally gets chest pain but cannot recall the last time he had chest pain he denies having any chest pain at this time. His vital signs are otherwise stable he denies any difficulty breathing denies any abdominal pain. Denies any dysuria urgency or frequency. He is seen at [facility] he supposed get a paliperidone shot on the of this month per his report. Associated symptoms: Deny chest pain, dyspnea or rash Related Data Home Medications ?Medication ?Instructions ?Recorded ?Confirmed simvastatin 40 mg tablet 40 mg PO BEDTIME 02/19/24 11/15/24 cetirizine 10 mg tablet 10 mg PO DAILY 05/05/24 11/15/24 losartan 25 mg tablet 25 mg PO DAILY 10/29/24 11/15/24 paliperidone palmitate 234 mg/1.5 234 mg IM Q30D 10/29/24 11/15/24 mL intramuscular syringe (Invega Sustenna) paliperidone 3 mg tablet,extended 3 mg PO QAM 11/06/24 11/15/24 release 24 hr sodium chloride 1,000 mg soluble 1,000 mg PO BID 11/06/24 11/15/24 tablet gabapentin 100 mg capsule 100 mg PO BID 11/15/24 11/15/24 lorazepam 0.5 mg tablet 0.5 mg PO BID 11/15/24 11/15/24 Previous Rx's ?Medication ?Instructions ?Recorded metformin 500 mg tablet 500 mg PO BIDWM 30 days #60 tabs 05/12/25 metoprolol tartrate 25 mg tablet 25 mg PO BID 30 days #60 tabs 09/22/24 divalproex 500 mg tablet,extended 500 mg PO BID #60 tabs 11/05/24 release 24 hr (Depakote ER) risperidone 1 mg tablet (Risperdal) 1 mg PO BID #60 tabs 11/05/24 Allergies Allergy/AdvReac Type Severity Reaction Status Date / Time lithium Allergy ADR-Nausea Verified 11/09/24 11:40 oxycodone (From OxyContin) Allergy nausea Verified 11/09/24 11:40 Penicillins Allergy ALGY-Difficulty Verified 11/09/24 11:40 Breathing Review of Systems Const: Denies: fever(s) or chills Card: Denies: chest pain Resp: Denies: dyspnea GI: Denies: abdominal pain : Denies: dysuria, urinary frequency or urinary urgency Musc: Denies: neck pain or back pain Skin/Breast: Denies: rash PFSH ED PFSH: Medical History Cellulitis and abscess of left leg Chronic hyponatremia Schizoaffective disorder, bipolar type Seasonal allergies History of Parkinson's disease Hyperlipidemia Hypertension Psychiatric care Family History Father Cancer stomach Mother Cancer ovarian Social History Smoking and tobacco/nicotine status: former use of tobacco/nicotine Quit status (tobacco/nicotine): has quit using Year quit tobacco: Roughly 2014 Alcohol intake: current Alcohol intake frequency: holidays/special occasions only Substance/Drug Use: former Additional social history: Patient states he lives alone he would like full CODE STATUS as discussed 11/06/2024. He states that also if he saw [facility] he would want to go forward to [facility] Adopted: No Caregiver/support person: No Lives independently: Yes Household members: none Housing: Apartment Marital status: / Number of children: 1 Number of grandchildren: 2 Highest education level completed: 8th Grade Current occupational status: unemployed Pets and animals: No Leisure activites: exercise and clubs Sexually active: No Do you think of yourself as: Straight/Heterosexual Current gender identity: Male Janelle/Episcopal: Oriental Orthodox Special janelle needs: No Agree to transfusion: Yes Physical Exam Const: COMMON NORMALS: no acute distress GENERAL APPEARANCE: cooperative and comfortable ORIENTATION/CONSCIOUSNESS: Yes awake, Yes oriented to person, Yes oriented to place and Yes oriented to time HENMT: COMMON NORMALS: normocephalic, atraumatic and hearing grossly normal bilaterally HEAD & SCALP: normocephalic and atraumatic Resp: COMMON NORMALS: normal respiratory effort, No retractions, No use of accessory muscles and clear to auscultation bilaterally AUSCULTATION: clear to auscultation bilaterally Cardio: COMMON NORMALS: regular rate, regular rhythm and No murmurs present (Cardio) RATE: regular rate RHYTHM: regular rhythm GI: COMMON NORMALS: Soft to palpation and No hepatosplenomegaly present AUSCULTATION: Yes normoactive bowel sounds PALPATION: Yes Soft to palpation, No Tenderness to palpation present (GI), No Guarding due to palpation present (GI) and Yes No hepatosplenomegaly present Extremity: COMMON NORMALS: normal to inspection, capillary refill normal, no clubbing, cyanosis or edema, no calf tenderness and no pedal edema Neuro: SENSORIUM/ORIENTATION: Yes oriented to person, Yes oriented to place and Yes oriented to time Skin: COMMON NORMALS: no rashes or lesions noted GENERAL SKIN EXAM: no rashes or lesions noted Course Vital Signs: Vital signs: Vital Signs Temperature 97.5 F L 11/15/24 10:06 Pulse Rate 83 11/15/24 10:06 Respiratory Rate 17 11/15/24 10:06 Blood Pressure 160/93 11/15/24 10:06 Pulse Oximetry 96 11/15/24 10:06 Oxygen Delivery Me thod Room Air 11/15/24 10:06 [facility] - General Adult Medical Decision Making No acute findings at this time he is not homicidal or suicidal he is not particularly psychotic. He is somewhat disagreeable with myself and the staff that there is no for acute admission or 96-hour hold at the time he is being seen. Discharge home have him follow-up with his primary care doctor and with behavioral health. Chest x-ray reviewed. Do not believe he has a pneumonia at this time needed the findings referred to the chest x-ray portal more likely atelectasis based on his history and exam. Medical Records I reviewed the patient's medical records. Lab Data I reviewed the patient's lab results. 11/15/24 10:21 11/15/24 10:21 Radiology Impressions Chest X-Ray 11/15/24 10:37 IMPRESSION: Reticular opacities in the left lower lung zone that might represent atelectasis versus infiltrates. Laboratory Results WBC 5.51 10^3/uL (3.29-11.43) 11/15/24 10:21 RBC 4.18 10^6/uL (3.85-5.65) 11/15/24 10:21 Hgb 11.60 g/dL (11.27-16.99) 11/15/24 10:21 Hct 36.9 % (37-53) L 11/15/24 10:21 MCV 88.3 fl (82-101) 11/15/24 10:21 MCH 27.8 pg (27-33) 11/15/24 10:21 MCHC 31.4 g/dL (30-55) 11/15/24 10:21 RDW 14.0 % (12.1-15.1) 11/15/24 10:21 Plt Count 261 10^3/cmm (157-399) 11/15/24 10:21 MPV 9.0 fL (7.4-10.4) 11/15/24 10:21 Neut % (Auto) 56.2 % 11/15/24 10:21 Lymph % (Auto) 23.8 % 11/15/24 10:21 [place] % (Auto) 11.6 % 11/15/24 10:21 Eos % (Auto) 7.3 % 11/15/24 10:21 Baso % (Auto) 0.7 % 11/15/24 10:21 Neut # (Auto) 3.10 10^3/uL (1.8-7.7) 11/15/24 10:21 Lymph # (Auto) 1.3 10^3/uL (0.8-4.8) 11/15/24 10:21 [place] # (Auto) 0.6 10^3/uL (0.2-0.9) 11/15/24 10:21 Eos # (Auto) 0.4 10^3/uL (0.0-0.8) 11/15/24 10:21 Baso # (Auto) 0.0 10^3/uL (0.0-0.1) 11/15/24 10:21 Nucleated RBC % (auto) 0 % 11/15/24 10:21 Nucleated RBCs # 0.0 /100WBC 11/15/24 10:21 Sodium 131 mmol/L (136-145) L 11/15/24 10:21 Potassium 3.8 mmol/L (3.5-5.1) 11/15/24 10:21 Chloride 94 mmol/L (98-107) L 11/15/24 10:21 Carbon Dioxide 23 mmol/L (22-29) 11/15/24 10:21 Anion Gap 17.8 (5-19) 11/15/24 10:21 BUN 7 mg/dL (8-23) L 11/15/24 10:21 Creatinine 0.6 mg/dL (0.7-1.2) L 11/15/24 10:21 GFR Calculation 136.5 mL/min (90-130) H 11/15/24 10:21 Glucose 121 mg/dL (65-115) H 11/15/24 10:21 Calculated Osmolality 271 mOsm/kg (285-295) L 11/15/24 10:21 Calcium 8.9 mg/dL (8.5-10.5) 11/15/24 10:21 Total Bilirubin 0.6 mg/dL (0.15-1.2) 11/15/24 10:21 AST 12 U/L (0-40) 11/15/24 10:21 ALT 8 U/L (0-41) 11/15/24 10:21 Alkaline Phosphatase 71 U/L (40-130) 11/15/24 10:21 Total Protein 6.3 g/dL (6.6-8.7) L 11/15/24 10:21 Albumin 3.7 g/dL (3.5-5.2) 11/15/24 10:21 Globulin 2.6 g/dL (1.3-4.6) 11/15/24 10:21 Urine Color Yellow (Yellow) 11/15/24 11:12 Urine Appearance Clear (CLEAR) 11/15/24 11:12 Urine pH 8.0 (5-7) A 11/15/24 11:12 Ur Specific [place] 1.010 (1.005-1.030) 11/15/24 11:12 Urine Protein Negative (Negative) 11/15/24 11:12 Urine Glucose (UA) Negative (Normal) 11/15/24 11:12 Urine Ketones Trace (Negative) 11/15/24 11:12 Urine Blood Negative (Negative) 11/15/24 11:12 Urine Nitrate Negative (Negative) 11/15/24 11:12 Urine Bilirubin Negative (Negative) 11/15/24 11:12 Urine Urobilinogen 1.0 mg/dL (Negative) 11/15/24 11:12 Ur Leukocyte Esterase Negative (Negative) 11/15/24 11:12 Urine RBC 0-2 /hpf (0-2) 11/15/24 11:12 Urine WBC 0-5 /hpf (0-5) 11/15/24 11:12 Ur Squamous Epith Cells 0-5 /hpf (0-5) 11/15/24 11:12 Amorphous Sediment Not Reportable 11/15/24 11:12 Urine Bacteria None seen /hpf (NONE) 11/15/24 11:12 Hyaline Casts 0-4 /lpf H 11/15/24 11:12 Salicylates < 0.3 mg/dL (3-10) L 11/15/24 10:21 Acetaminophen < 5.0 ug/mL (10-30) L 11/15/24 10:21 All radiology interpretation(s) finalized by discharge Discharge Plan Discharge Patient Disposition: Home Clinical Impression: Schizoaffective disorder, bipolar type, Chronic hyponatremia Condition: Stable Prescriptions: No Action simvastatin 40 mg tablet 40 mg PO BEDTIME Invega Sustenna 234 mg/1.5 mL syringe 234 mg IM Q30D Rx Instructions: Injection every 28 days Received at [facility] today, 10/29/24 divalproex [Depakote ER] 500 mg tablet extended release 24 hr 500 mg PO BID Qty: 60 3RF risperidone [Risperdal] 1 mg tablet 1 mg PO BID Qty: 60 3RF losartan 25 mg tablet 25 mg PO DAILY cetirizine 10 mg tablet 10 mg PO DAILY metformin 500 mg Tablet 500 mg PO BIDWM 30 Days Qty: 60 1RF metoprolol tartrate 25 mg tablet 25 mg PO BID 30 Days Qty: 60 1RF sodium chloride 1,000 mg tablet,soluble 1,000 mg PO BID paliperidone 3 mg tablet extended release 24hr 3 mg PO QAM lorazepam 0.5 mg tablet 0.5 mg PO BID gabapentin 100 mg capsule 100 mg PO BID Discharge Orders: Discharge ED (Routine); Ordered 11/15/24 Ordered By: Miguel Rawls Referrals: Shemar Arcos MD [Primary Care Provider, Family Practice] Patient Instructions: Opioid Safety, Pain Management, Patient Portal & [place] Instructions Activity Restrictions/Additional Instructions: Thank you for choosing [facility] for your healthcare needs today. It is very important that you follow up as instructed or that you return to the Emergency Department should you have concerns or if your condition changes or worsens in any way. You were seen in the emergency room with concerns of generalized health. Your lab test did not show significant abnormalities. There is no medical emergency at this time. I recommend that you follow-up with your primary care doctor and at [facility]. Print Language: Bruneian Coding Level of Care Code ED Correction Officer Supervisor for Brien Loomis
--- OUTSIDE RECORDS SUMMARY | 2024-11-15 10:14 | XMS_ITS | Clinical Summary ---
Author Organization [facility] Address [address] Attn: Epic Prelude ADT [place] [id number] Care Team Providers Care Underwriter Name Role Phone Unavailable Primary Care Provider Unavailabl e Allergies Active Allergy Reactions Criticality Noted Date Comments Lactose Diarrhea Medium 08/03/2022 [place] Anaphylaxis,Other (S ee Comments) High 05/02/2018 Vomiting [...] admission 06/15 Borderline diabetes 06/20/2021 Atherosclerosis of [place] co ronary artery of [place] heart without angina pectoris 06/13/2021 Benign prostatic [...] 07/09/2021 How often do you attend [facility] or sabianism services? More than 4 times per year 07/09/2021 Do you belong to any clubs o r organizations such as spiritism groups, unions, fraternal or athletic groups, or [...] place to sleep or slept in a retirement (including now)? Yes 07/09/2021 Education Answer Date Recorded What is the highest level of school you have completed or the highest degree you have received? 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 DUAL COMPLETE HMO [facility] [id number] RX [employer] Member Subscriber Plan / Payer (Ef fective 2021-Present) Name:Benedicto Amaral Relation to Subscriber:Self Name:Benedicto Amaral Subscriber ID:Not on file Payer ID:Not on file Group ID:[id number] Type:RX Medicare Part D Address: [place] [facility] MEDICARE [id number] Advance Directives For more information, please contact: [phone] * Full Code (Latest Code Status on [...]
--- OUTSIDE RECORDS SUMMARY | 2024-11-15 10:14 | XMS_ITS | Data Portability ---
Author Organization [facility] [place] [facility] Address [address] [facility] [address] [place] [address] Care Team Providers Care Cement Mixer Name Role Phone CHRISTOPHER ARCOS Primary Care [...] Organization Details Last Modified Time Details Appointments HOSPITAL f/u 15 2024 01:45P M Christopher Arcos MD Not available Not available Not available Lab hemoglobi n A1C/hemog lobin total, QN, blood 2024 025 [facility], [address], [place], [address], 11/04/2024 11:07:15 CMP, serum or plasma 2024 025 [facility], [address], [place], [address], 11/04/2024 11:47:15 microalbu min/creat inine, mass ratio, urine 2024 025 [facility], [address] [facility] [address], [place], [address], 11/05/2024 06:21:07 lipid panel, blood 2024 025 [facility], [address], [place], [address], 11/04/2024 11:47:17 CMP, serum or plasma 2022 023 [facility], [address], [place], [address], 04/02/2023 11:36:04 lipid panel, blood 2022 023 [facility], [address], [place], [address], 04/02/2023 11:36:07 CBC 2022 023 [facility], [address], [place], [address], 04/02/2023 11:03:45 Referral gastroent erologist referral 2024 025 [email or web address] Julian So MD, [address] [place] [address] Ave, [address], [place], [address], 11/06/2024 12:48:38 Procedures None recorded. Surgeries None recorded. Imaging XR, pelvis [address] ([facility]), [address] [place] [address], [phone], 10/24/2024 13:49:33 XR, hip, unilatera l [address] ([facility]), [address] [place] [address], [phone], 10/24/2024 13:49:34 XR, knee, 3 view 2024 025 [email or web address] [facility], [address] [place], [address], 10/24/2024 13:49:34 Medication Orders lisinopri l 20 mg tablet 2022 023 [email or web address] [facility] [place], [address] [place], [address], 10/17/2024 09:54:02 Patient TargetsNo targets recorded. Patient InstructionsNo instructions recorded. Reason for Referral Hospital Clinic Assistant Referral for Screening for malignant neoplasm of colon Referring Physician: Christopher Arcos, Family Medicine, Encounter Date: 11/04/2024 Results Created Date Observation Date Name Description Value Unit Range Abnormal Flag Note LastModifiedBy Organization Detail LastModifiedTime 04/02/2004/02/2023 CBC WBC 5.4 x10 4.5-10 .5 Not Available [place] [address] [facility] [address], [place], [address], 04/02/2023 11:03:45 04/02/20 23 04/02/2023 CBC RBC 5.07 x10 4.30-5 .90 Not Available [place] [address] [facility] [address], [address], 04/02/2023 11:03:45 04/02/20 23 04/02/2023 CBC HGB 15.4 g/dL 13.5-1 8.0 Not Available [facility] [address] [facility] [address], [place], [address], 04/02/2023 11:03:45 04/02/20 23 04/02/2023 CBC HCT 44.1 % 35.0-6 0.0 Not Available [facility] [address] [facility] 1, [place], [address], 04/02/2023 11:03:45 04/02/20 23 04/02/2023 CBC MCV 86.9 fL 80.0-9 9.9 Not Available [facility] [address] [facility] [address], [place], [address], 04/02/2023 11:03:45 04/02/20 23 04/02/2023 CBC MCH 30.4 pg 27.0-3 2.0 Not Available [facility] [address] [facility], [place], [address], 04/02/2023 11:03:45 04/02/20 23 04/02/2023 CBC MCHC 34.9 g/dL 32.0-3 6.0 Not Available [facility] [address] [facility], [place], [address], 04/02/2023 11:03:45 04/02/20 23 04/02/2023 CBC RDW 14.3 % 11.5-1 4.5 Not Available [facility] [address] [facility], [place], [address], 04/02/2023 11:03:45 04/02/20 23 04/02/2023 CBC plt 208.5 x10 150.0- 451.0 Not Available [facility] [address] [facility] [facility], [place], [address], 04/02/2023 11:03:45 04/02/20 23 04/02/2023 CBC lymphocytes % 30.1 % 20.0-5 0.0 Not Available [facility] [address] [facility] 1, [place], [address], 04/02/2023 11:03:45 04/02/20 23 04/02/2023 CBC granulcytes % 52.9 % 30.0-7 0.0 Not Available [facility] [address] [facility] [address], [place], [address], 04/02/2023 11:03:45 04/02/20 23 04/02/2023 CBC monocytes % 10.7 % 2.0-10 .0 high Not Available [facility] [address] [facility] [address], [place], [address], 04/02/2023 11:03:45 04/02/20 23 04/02/2023 CBC granulcytes# 2.8 x10 Not Martina ilable [facility] [address] [facility] 1, [place], [address], 04/02/2023 11:03:45 04/02/20 23 04/02/2023 CBC lymphocytes # 1.6 x10 Not Available [facility] [address] [address], [place], [address], 04/02/2023 11:03:45 04/02/20 23 04/02/2023 CBC monocytes # 0.6 x10 Not Avai lable [facility] [address] [facility] 1, [place], [address], 04/02/2023 11:03:45 04/02/20 23 04/02/2023 CMP (MALE ) glucose 151.0 mg/dL 60.0-9 9.0 high Not Available [facility] [address] [facility] 1, [place], [address], 04/02/2023 11:36:04 04/02/20 23 04/02/2023 CMP (MALE ) BUN (blood urea nitrogen) 20.0 mg/dL 10.0-2 6.0 Not Available [facility] [address] [address], [place], [address], 04/02/2023 11:36:04 04/02/2005 0404/02/2023 CMP (MALE ) creatinine (serum) 0.9 mg/dL 0.4-1. 5 Not Available [facility] [address] [facility], [place], [address], 04/02/2023 11:36:04 04/02/20 23 04/02/2023 CMP (MALE ) BUN/creatini ne ratio 22.22 ratio Not Available [facility] [address] [facility], [place], [address], 04/02/2023 11:36:04 04/02/20 23 04/02/2023 CMP (MALE ) eGFR calculated 91.2 Not Available [facility] [address] [facility], [place], [address], 04/02/2023 11:36:04 04/02/20 23 04/02/2023 CMP (MALE ) total protein 7.1 g/dL 6.0-8. 5 Not Available [facility] [address] [facility], [place], [address], 04/02/2023 11:36:04 04/02/20 23 04/02/2023 CMP (MALE ) total bilirubin 0.6 mg/dL 0.2-1. 3 Not Available [facility] [address] [facility], [place], [address], 04/02/2023 11:36:04 04/02/20 23 04/02/2023 CMP (MALE ) albumin 4.1 g/dL 3.5-5. 5 Not Available [facility] [address] [facility], [place], [address], 04/02/2023 11:36:04 04/02/20 23 04/02/2023 CMP (MALE ) globulin 3.0 calc Not Available [facility] [address] [facility], [place], [address], 04/02/2023 11:36:04 04/02/20 23 04/02/2023 CMP (MALE ) AST (SGOT) 46.0 U/L 0.0-46 .0 Not Available [facility] [address] [facility] 1, [place], [address], 04/02/2023 11:36:04 04/02/20 23 04/02/2023 CMP (MALE ) altv (SGPT) 68.0 U/L 13.0-6 9.0 normal Not Available [facility] [address] [facility] 1, [place], [address], 04/02/2023 11:36:04 04/02/20 23 04/02/2023 CMP (MALE ) A/G ratio 1.4 ratio Not Available [email or web address] [address] [facility] 1, [place], [address], 04/02/2023 11:36:04 04/02/20 23 04/02/2023 CMP (MALE ) ALP phos 74.0 U/L 30.0-1 40.0 normal Not Available [facility] [address] [facility] 1, [place], [address], 04/02/2023 11:36:04 04/02/20 23 04/02/2023 CMP (MALE ) calcium 9.6 mg/dL 8.4-10 .5 Not Available [facility] [address] [facility] 1, [place], [address], 04/02/2023 11:36:04 04/02/20 23 04/02/2023 CMP (MALE ) sodium 133.0 mmol/ L 136.0- 145.0 low Not Available [facility] [address] [facility] 1, [place], [address], 04/02/2023 11:36:04 04/02/20 23 04/02/2023 CMP (MALE ) potassium 4.5 mmol/ L 3.5-5. 1 Not Available [facility] [address] [facility], [place], [address], 04/02/2023 11:36:04 04/02/20 23 04/02/2023 CMP (MALE ) chloride 99.0 mmol/ L 98.0-1 10.0 normal Not Available [facility] [address] [facility], [place], [address], 04/02/2023 11:36:04 04/02/20 23 04/02/2023 CMP (MALE ) C02 29.0 mmol/ L 22.0-3 1.0 Not Available [facility] [address] [facility], [place], [address], 04/02/2023 11:36:04 04/02/20 23 04/02/2023 CMP (MALE ) anion gap 5.0 calc Not Available [facility] [address] [facility] [address], [place], [address], 04/02/2023 11:36:04 04/02/20 23 04/02/2023 CMP (MALE ) osmolality 280.2 calc Not Available [facility] [address] [facility], [place], [address], 04/02/2023 11:36:04 04/02/20 23 04/02/2023 LIPID PROFI LE (MALE ) cholesterol 271.0 mg/dL 0.0-20 0.0 high Not Available [facility] [address] [facility], [place], [address], 04/02/2023 11:36:07 04/02/20 23 04/02/2023 LIPID PROFI LE (MALE ) trig 505.0 mg/dL 0.0-15 0.0 high Not Available [facility] [address] [facility] 1, [place], [address], 04/02/2023 11:36:07 04/02/20 23 04/02/2023 LIPID PROFI LE (MALE ) HDL - direct 32.0 mg/dL >40.0 low Not Available [facility] [address] [facility], [place], [address], 04/02/2023 11:36:07 04/02/20 23 04/02/2023 LIPID PROFI LE (MALE ) VLDL - direct 101.0 mg/dL Not Available [facility] [address] [facility] 1, [place], [address], 04/02/2023 11:36:07 04/02/20 23 04/02/2023 LIPID PROFI LE (MALE ) LDL - direct 138.0 mg/dL 0.0-13 0.0 high Not Available [facility] [address] [facility] 1, [place], [address], 04/02/2023 11:36:07 11/05/19 25 11/04/2024 HBA1C hemaglobin A1C 6.3 4.2-6. 5 Not Available [facility] [address] [facility], [place], [address], 11/04/2024 11:07:15 11/05/19 25 11/04/2024 CMP (MALE ) glucose 105.0 mg/dL 60.0-9 9.0 high Not Available [facility] [address] [facility] 1, [place], [address], 11/04/2024 11:47:15 11/05/19 25 11/04/2024 CMP (MALE ) BUN (blood urea nitrogen) 16.0 mg/dL 10.0-2 6.0 Not Available [facility] [address] [facility], [place], [address], 11/04/2024 11:47:15 11/05/19 25 11/04/2024 CMP (MALE ) creatinine (serum) 0.8 mg/dL 0.4-1. 5 Not Available [facility] [address] [facility], [place], [address], 11/04/2024 11:47:15 11/05/19 25 11/04/2024 CMP (MALE ) BUN/creatini ne ratio 20.00 ratio Not Available [facility] [address] [facility], [place], [address], 11/04/2024 11:47:15 11/05/19 25 11/04/2024 CMP (MALE ) eGFR calculated 104.1 Not Available [facility] [address] [facility] 1, [place], [address], 11/04/2024 11:47:15 11/05/19 25 11/04/2024 CMP (MALE ) total protein 6.5 g/dL 6.0-8. 5 Not Available [facility] [address] [facility] 1, [place], [address], 11/04/2024 11:47:15 11/05/19 25 11/04/2024 CMP (MALE ) total bilirubin 0.9 mg/dL 0.2-1. 3 Not Available [facility] [address] [facility], [place], [address], 11/04/2024 11:47:15 11/05/19 25 11/04/2024 CMP (MALE ) albumin 3.8 g/dL 3.5-5. 5 Not Available [facility] [address] [facility] 1, [place], [address], 11/04/2024 11:47:15 11/05/19 25 11/04/2024 CMP (MALE ) globulin 2.7 calc Not Available [facility] [address] [facility] 1, [place], [address], 11/04/2024 11:47:15 11/05/19 25 11/04/2024 CMP (MALE ) AST (SGOT) 25.0 U/L 0.0-46 .0 Not Available [facility] [address] [facility] 1, [place], [address], 11/04/2024 11:47:15 11/05/19 25 11/04/2024 CMP (MALE ) altv (SGPT) 16.0 U/L 13.0-6 9.0 normal Not Available [facility] [address] [facility] 1, [place], [address], 11/04/2024 11:47:15 11/05/19 25 11/04/2024 CMP (MALE ) A/G ratio 1.4 ratio Not Available [facility] [address] [facility] 1, [place], [address], 11/04/2024 11:47:15 11/05/19 25 11/04/2024 CMP (MALE ) ALP phos 71.0 U/L 30.0-1 40.0 normal Not Available [facility] [address] [facility] 1, [place], [address], 11/04/2024 11:47:15 11/05/19 25 11/04/2024 CMP (MALE ) calcium 8.6 mg/dL 8.4-10 .5 Not Available [facility] [address] [facility] 1, [place], [address], 11/04/2024 11:47:15 11/05/19 25 11/04/2024 CMP (MALE ) sodium 127.0 mmol/ L 136.0- 145.0 low Not Available [facility] [address] [facility] 1, [place], [address], 11/04/2024 11:47:15 11/05/19 25 11/04/2024 CMP (MALE ) potassium 3.9 mmol/ L 3.5-5. 1 Not Available [facility] [address] [facility], [place], [address], 11/04/2024 11:47:15 11/05/19 25 11/04/2024 CMP (MALE ) chloride 91.0 mmol/ L 98.0-1 10.0 abnormal Not Available [facility] [address] [facility] 1, [place], [address], 11/04/2024 11:47:15 11/05/19 25 11/04/2024 CMP (MALE ) C02 31.0 mmol/ L 22.0-3 1.0 Not Available [facility] [address] [facility] 1, [place], [address], 11/04/2024 11:47:15 11/05/19 25 11/04/2024 CMP (MALE ) anion gap 5.0 calc Not Available [facility] [address] [facility] 1, [place], [address], 11/04/2024 11:47:15 11/05/19 25 11/04/2024 CMP (MALE ) osmolality 264.6 calc Not Available [facility] [address] [facility] 1, [place], [address], 11/04/2024 11:47:15 11/05/19 25 11/04/2024 LIPID PROFI LE (MALE ) cholesterol 122.0 mg/dL 0.0-20 0.0 Not Available [facility] [address] [facility] 1, [place], [address], 11/04/2024 11:47:17 11/05/19 25 11/04/2024 LIPID PROFI LE (MALE ) trig 188.0 mg/dL 0.0-15 0.0 high Not Available [facility] [address] [facility] 1, [place], [address], 11/04/2024 11:47:17 11/05/1911/04/2024 LIPID PROFI LE (MALE ) HDL - direct 29.0 mg/dL >40.0 low Not Available [facility] [address] [facility] 1, [place], [address], 11/04/2024 11:47:17 11/05/19 25 11/04/2024 LIPID PROFI LE (MALE ) VLDL - direct 37.6 mg/dL Not Available [facility] [address] [facility] 1, [place], [address], 11/04/2024 11:47:17 11/05/19 25 11/04/2024 LIPID PROFI LE (MALE ) LDL - direct 55.4 mg/dL 0.0-13 0.0 Not Available [facility] [address] [facility] 1, [place], [address], 11/04/2024 11:47:17 11/05/19 25 11/05/2024 ALBUM IN, RANDO M URINE W/CRE ATINI NE creatinine, random urine 147 mg/dL 20-320 normal Not Available [facility] [address] [place], [address], 11/05/2024 06:21:07 11/05/19 25 11/05/2024 ALBUM IN, RANDO M URINE W/CRE ATINI NE albumin, urine 0.6 mg/dL see note: normal Refer ence Range : Refer ence Range Not estab lishe d Not Available [facility] [address] [place], [address], 11/05/2024 06:21:07 11/05/19 25 11/05/2024 ALBUM IN, RANDO M [...] a diagn ostic categ ory. Not Available [facility] [address] [place], [address], 11/05/2024 06:21:07 10/25/19 25 10/23/2024 XR, pelvi s No observ ation record ed. [facility] [address] [place], [address], 10/26/2024 11:36:09 10/25/19 25 10/23/2024 XR, hip, unila teral No observ ation record ed. [facility] [address] [place], [address], 10/26/2024 11:36:10 10/25/19 25 10/23/2024 XR, knee, 3 view No observ ation record ed. [facility] [address] [place], [address], 10/26/2024 11:36:10 Result Notes None recorded. Problems Name Problem SNOMED Code Status Onset Date Resolution Date Notes Provider Name and Address Organization Details Recorded Time Psychotic disorder 12711753 Active [address]18 Parkinson's disease 26019716 Active 2022 REGI agustin [facility] Cantrell 3 11:37:18 Benign prostatic hyperplasia 014285896 Active 2022 REGI agustin, [facility] 3 11:37:18 Bipolar disorder 05821040 Active 2022 REGI agustin, [facility] 3 11:37:17 Lower urinary tract symptoms due to benign prostatic hypertrophy 6577421804692 1 Active 2022 REGI agustin, [facility] 3 11:37:18 Essential hypertensio n 42561390 Active 2022 REGI agustin, [facility] 3 11:37:18 History of myocardial infarction 556984858 Active 2022 REGI agustin, [facility] 3 11:37:18 Schizophren ia 54986491 Active 2022 REGI agustin, [facility] 3 16:42:51 Hyperglycem ia 03752275 Active 2022 REGI agustin, [facility] 3 16:43:01 Allergic rhinitis 34112227 Active 2022 REGI agustin, [facility] 3 16:42:56 Acquired hearing loss 288078437 Active 2022 REGI agustin, [facility] 3 16:42:48 Hyperlipide tyler 73690357 Active 2022 Christopher Arcos MD [address] [place] [address], [phone] [place] [address], L.L.C. 3 10:13:33 Fear of heights 507178182 Active 2022 Christopher Arcos MD [address] [place] [address], [phone], [facility], L[facility]son 3 10:13:55 Contusion of left knee 9551028370753 9109 Active 2024 Christopher Arcos MD [address] [place] [address], [phone], [facility], LAnsonLAnsonCAnson 5 18:55:08 Type 2 diabetes mellitus 64316078 Active 2024 Christopher Arcos MD [address] [place] [address], [phone], [facility], LAnsonLAnsonCAnson 5 10:19:33 Generalized anxiety disorder 53596373 Active 2024 Christopher Arcos MD [address] [place] [address], [phone], [facility], L[facility]son 5 11:54:36 Problem Notes None recorded. Medical Equipment None Reported. Allergies Allergen ID Allergen Name Allergen Category Reaction Reaction Severity Criticality Documentation Date Start Date Code Code System Note Provider Name and Address Organization Details Recorded Time 4597 Product containin g penicilli n (product) medicatio n Not available Not available Not available 11/01/2022 [address] [facility] 3 10:01:00 4598 Oxycontin medicatio n Not available Not available Not available 11/01/2022 [address] [facility] 3 10:01:10 44519 lithium Not available Not available Not available Not available 04/02/2023 6448 RxNorm [address] [facility] L[facility] 3 09:45:23 Medications Name Sig Start Date [...] Relief 50 mcg/actuati on nasal spray,suspe nsion [place] 1 spray every day by intranasa l route. 10/17 completed Not Available Not Available Not Available Vitals Date Recorded Body height Body mass index (BMI) Body weight Provider Name and Address Organization Details Last Updated DateTime 10/17/2024 180.34 cm 32.4 kg/m2 935396.[address] [facility] 10/17/2024 09:53:02 Date Recorded Body height Body mass index (BMI) Body weight Oxygen saturation Oxygen saturation in Arterial blood by Pulse oximetry Heart rate Respiratory rate Body temperature Systolic And Diastolic Provider Name and Address Organization Details Last Updated DateTime 180.34 cm 32.1 kg/m2 032010. 25 g 97 % 97 % 105 /min 18 /min 98.2 [degF] 140/90 mm[Hg] Barb Lackey [facility] 10:51:14 Date Recorded Body height Body mass index (BMI) Body weight Body temperature Oxygen saturation Oxygen saturation in Arterial blood by Pulse oximetry Heart rate Systolic And Diastolic Provider Name and Address Organization Details Last Updated DateTime 5 180.34 cm 33.5 kg/m2 586068. 17 g 97.6 [degF] 94 % 94 % 103 /min 144/78 mm[Hg] Renetta Herbert [facility] 5 09:20:19 Date Recorded Body height Body mass index (BMI) Body weight Body temperature Oxygen saturation Oxygen saturation in Arterial blood by Pulse oximetry Heart rate Systolic And Diastolic Provider Name and Address Organization Details Last Updated DateTime 3 180.34 cm 35.9 kg/m2 160392. 04 g 97.5 [degF] 95 % 95 % 105 /min 150/86 mm[Hg] CAMILLE WARD [facility] 3 09:45:10 Social History Question Answer Notes LastModified by [employer] Details LastModified Time Tobacco Smoking Status Former Smoker CAMILLE WARD [facility] 04/02/2023 09:47:08 What Is Your Level Of Caffeine Consumption? Occasional Information not available 04/02/2023 What Was The Date Of Your Most Recent Tobacco Screening? 11/04/2024 [email or web address] Information not available 11/04/2024 What Is Your Relationship Status? Information not available 04/02/2023 Sex: Unknown Functional Status Question Answer Note LastModified by [employer] Details LastModified Time What is your level [...] e and Address Organization Details Recorded Time COVID-, mRNA, LNP-S, PF, 100 mcg/0.5mL dose or 50 mcg/0.25mL dose 2 completed REGI agustin, [facility] 02/04/2023 16:43:22 COVID-19, mRNA, LNP-S, bivalent, PF, 30 mcg/0.3 mL dose 2 completed REGI agustin, [facility] 02/04/2023 16:43:22 influenza, unspecified formulation 5 completed REGI agustin, [facility] 02/04/2023 16:43:22 Tdap 6 completed REGI agustin, [facility] 02/04/2023 16:43:22 Tdap 2 completed REGI agustin, [facility] 02/04/2023 16:43:22 Tdap 2 completed REGI agustin, [facility] 02/04/2023 16:43:22 Influenza, split virus, trivalent, PF 7 completed REGI agustin, [facility] 02/04/2023 16:43:22 Hep A, adult 9 completed REGI agustin, [facility] 02/04/2023 16:43:22 Hep A, adult 9 completed REGI agustin, [facility] 02/04/2023 16:43:22 Influenza, split virus, quadrivalent, PF 9 completed REGI MILNER null, [facility] 02/04/2023 16:43:22 Influenza, split virus, quadrivalent, PF [address] [facility] 02/04/2023 16:43:22 Influenza, split virus, quadrivalent, PF [address] [facility] 02/04/2023 16:43:22 COVID-19, mRNA, LNP-S, PF, 50 mcg/0.5 mL [address] [facility] 06/01/2023 19:12:57 Influenza, recombinant, trivalent, PF 4 completed Not Available [facility] 11/04/2024 09:06:27 Influenza, split virus, quadrivalent, PF [address] [facility] 02/05/2023 11:06:09 Past Encounters Encounter ID Performer Location Encounter Start Date Encounter Closed Date Diagnosis/Indication Diagnosis SNOMED-CT Code Diagnosis ICD10 Code Diagnosis Note [id number] Christopher Arcos MD [facility] ([facility]) [address] [place] [address] [phone] 11/01/2022 09:45:19 11/01/2022 12:47:18 Lower urinary tract symptoms due to benign prostatic hypertrophy 6053513535 9101 N40.1 Parkinson's disease 4904 9000 G20 Psychotic disorder 10862 001 F29 Bipolar disorder [id number] 4 F31.9 Essential hypertension 65749753 I10 History of myocardial infarction 087733062 I25.2 [id number] Christopher Arcos MD [facility] ([facility]) [address] [place] [address] [phone] 12/20/2022 09:35:24 12/20/2022 10:38:21 Essential hypertension [id number] I10 Benign pro static hyperplasia 661887758 N40.1 Schizophrenia 75789887 F 20.9 Bipolar disorder 7717831 4 F31.9 Hyperglycemia 95247013 R 73.9 Allergic rhinitis 669661 04 J30.9 Acquired hearing loss 72 5868155 H91.90 [id number] Christopher Arcos MD [facility] ([facility]) [address] [place] [address] [phone] 5 02/05/2023 09:36:55 02/05/2023 10:48:47 Benign prostatic hyperplasia 475082799 N40.1 Patient is awaiting urology evaluation and treatment. Essential hypertension 96843197 I10 Blood pressure is mildly elevated today.. Patient will monitor blood pressure and report if unable to control or if they develop new symptoms. Schizophrenia 68467518 F 20.9 Patient is doing well on current medication s. Continue follow-ups with psychiatry [id number] Christopher Arcos MD [facility] ([facility]) [address] [place] [address] [phone] 5 04/02/2023 09:37:06 04/02/2023 15:33:03 Adult health examination 623960455 Z00.00 We will check labs today. Patient has been having some glucose issues. Patient was encouraged to eat a well-terrell isaias diet and exercise 30 minutes daily. Essential hypertension 80304607 I10 Pressure not well controlled . Start lisinopril . Patient was encouraged to have his blood pressure checked routinely. Hyperlipidemia 79855782 E78.5 Fear of heights 26049841 1 F40.241 We will provide a letter stating that he has fair hygiene to consider weaning him to a lower level apartment if available. [id number] JAY RAMSEY [facility] ([facility]) [address] [place] [address] [phone] 5 10/17/2024 09:47:49 10/17/2024 11:03:51 [id number] Christopher Arcos MD [facility] ([facility]) [address] [place] [address] [phone] 10/23/2024 10:42:36 10/24/2024 13:49:33 Fall 6480135 W19.XXXA Trays were obtained of the pelvis, hip, and knee and reviewed by me. No evidence of fracture. The patient does have significan t degenerati ve changes noted within his back. Mild arthritis. Contusion of left knee [id number] 7611698 S80.02XA The patient does have evidence of significan t contusion and bleeding under the skin. Encouraged the patient to continue ambulating and mobilizing . Follow-up if symptoms do not improve. [id number] JAY PETER [facility] ([facility]) [address] [place] [address] 10/28/2024 09:40:33 10/28/2024 10:18:07 [id number] Christopher Arcos MD [facility] ([facility]) [address] [place] [address] 11/04/2024 09:06:09 11/04/2024 10:34:47 At increased risk for falls 838260824 Z91.81 Does have increased risk for falls and has fallen at his apartment recently. Patient would benefit from assistive devices, however insurance will not pay for wheelchair , rollator, and cane. Feels that he would mostly benefit from rollator and will send her order over to part of the [employer] medical equipment for this device. Also has increased risk for falls especially in the shower so a shower chair would be appropriat e. Type 2 tho betes mellitus 91892474 E11.9 Z79.4 Patient reports a history of [...] accurate list can be made. Essential hypertension 60656435 I10 Pressure not well controlled . Start lisinopril . Patient was encouraged to have his blood pressure checked routinely. Schizophrenia 13968871 F 20.9 Patient needs to continue to follow with psychiatry . Will try to find what medication he was placed on during his recent inpatient psych admission. Hyperlipidemia 90719262 E78.5 Screening for malignant neoplasm of colon 070292837 Z12.11 Will send referral to GI for colon cancer screening. Generalize d anxiety disorder 50054077 F41.1 Health Concerns Section Related Observation LastModified by Organization Detai ls LastModified Time None Recorded Concern Status LastModified by Organization Details LastModified Time None Recorded Advance Directives Directive None Recorded Payers Insurance Date Sequence Insurance Name Policy Number Policy Franklin Covered Member ID Franklin Member ID Guarantor Name 10/17/2024 [place] [facility] Benedicto Fuentesk [id number] Benedicto Chávezniksohail 11/07/[address] [facility]/A DVANTAGE - HMO) Benedicto Fuentesk [id number] Benedicto Fuentesk 10/17/2024 1 [place] - [place]PO) [id number] Benedicto Fuentesk [id number] Benedicto Amaral 10/17/2024 2 [place] Benedicto Fuentesk [id number] Benedicto Amaral Notes Date Note Type Note Provider Name and Address Organization Details Recorded Time 04/02/2023 text/html Get concernThis is a 63-year-old gentleman that comes in [...] underlying mental health issues. Christopher Arcos MD [address] [place] [address], [phone], [facility] 04/02/2023 15:38:37 10/23/2024 text/html [facility] is here today for left hip pain, and left knee pain after a fell he thinks it was weeks ago. Christopher Arcos MD [address] [place] [address], [phone], [facility] 10/24/2024 11:26:50 11/04/2024 text/html Annual [...] weeks prior at his place of living, [facility]. He would like to [...] hospital time in a psych facility at [facility]. Patient states that they started him on new medications but he does not recall what they were. Christopher Arcos MD [address] [place] [address], [phone], [facility] 11/05/2024 11:55:05
[2024-11-15 10:26] LABS: Hematocrit 36.9 % (37-53); Hemoglobin 11.60 g/dL (11.27-16.99); Mean Corpuscular HGB Conc 31.4 g/dL (30-55); Mean Corpuscular Hemoglobin 27.8 pg (27-33); Mean Corpuscular Volume 88.3 fl (82-101); Nucleated Red Blood Cells % 0 %; Platelet Count 261 10^3/cmm (157-399); Red Blood Count 4.18 10^6/uL (3.85-5.65); White Blood Count 5.51 10^3/uL (3.29-11.43)
--- NOTE | 2024-11-15 10:37 | XRR_ITS ---
PROCEDURE INFORMATION: Exam: XR Chest Exam date and time: 11/15/2024 10:50 AM Age: 64 years old Clinical indication: Cough and dyspnea; Additional info: Dyspnea/cough TECHNIQUE: Imaging protocol: Radiologic exam of the chest. Views: 1 view. COMPARISON: CR XR chest 1V portable [id number] 11/10/2024 12:15 PM FINDINGS: Lungs: Reticular opacities in the left lower lung zone that might represent atelectasis versus infiltrates. Pleural spaces: Unremarkable. No pleural effusion. No pneumothorax. Heart/Mediastinum: Unremarkable. No cardiomegaly. Bones/joints: The thoracic spine demonstrates mild degenerative changes at multiple levels. Curvature of the thoracic spine convex to the right. XR/XR chest 1V portable [id number] IMPRESSION: Reticular opacities in the left lower lung zone that might represent atelectasis versus infiltrates.
--- NOTE | 2024-11-15 10:42 | ECG_ITS ---
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
[2024-11-15 10:45] LABS: Alanine Aminotransferase 8 U/L (0-41); Albumin Level 3.7 g/dL (3.5-5.2); Alkaline Phosphatase 71 U/L (40-130); Anion Gap 17.8 (5-19); Aspartate Amino Transferase 12 U/L (0-40); Blood Urea Nitrogen 7 mg/dL (8-23); Calcium 8.9 mg/dL (8.5-10.5); Carbon Dioxide 23 mmol/L (22-29); Chloride 94 mmol/L (98-107); Globulin 2.6 g/dL (1.3-4.6); Glucose 121 mg/dL (65-115); Osmolality Calculated 271 mOsm/kg (285-295); Potassium 3.8 mmol/L (3.5-5.1); Sodium 131 mmol/L (136-145); Total Protein 6.3 g/dL (6.6-8.7)
[2024-11-15 10:55] LABS: Acetaminophen < 5.0 ug/mL (10-30); Creatinine Clr Calc Pharmacy 152.0076; Salicylate < 0.3 mg/dL (3-10)
[2024-11-15 11:20] LABS: Glucose Urine UA Negative (Normal); Nitrate Urine Negative (Negative); Specific Gravity, Urine 1.010 (1.005-1.030)
[2024-11-15 11:25] LABS: Add Urine Microscopic? YES
== END 2024-11-15 11:51 | disposition home or self-care (01) ==
PROVIDERS: Emergency Provider Family Medicine; PCP Family Medicine
DX: F25.0 Schizoaffective disorder, bipolar type (principal); E87.1 Hypo-osmolality and hyponatremia; Z79.84 Long term (current) use of oral hypoglycemic drugs; Z87.891 Personal history of nicotine dependence; E78.5 Hyperlipidemia, unspecified; I10 Essential (primary) hypertension
CPT/HCPCS: 71045; 80053; 80307; 81001; 85025; 93005; 93010; 99285

== ENCOUNTER 2024-11-20 02:43 | Emergency (ER) | payer OTHER, MEDICAID, SELFPAY ==
--- OUTSIDE RECORDS SUMMARY | 2022-04-14 10:31 | XMS_ITS | Continuity of Care Document ---
Author Organization [facility] Address [address] [id number] [address] Phone Care Team Providers Care Commercial Artist Lettering Name Role Phone Anand Duncan NP Unavailable [...] Diagnoses Date Provider Providers Copied on Encounter [facility], [address] Mr[address]W3 9387944VA- [facility], [place], [place], [address], [place] tel:[phone] [facility] No Information 2 Dakota Anand. [address] [place], [address], [place]. tel:[phone] [facility], [address] Xtiyd959A6 9239869ZI- [place], [address], [place] tel:[phone] [facility] F2 Medication Management (chief complaint)Eder izoaffective disorder (chief complaint)Gen eralized Anxiety Disorder (chief complaint) Schizoaffect filemon disorder, bipolar typeGenerali zed anxiety disorder Sep- 2 Kendrick Cabrera. [address], [place], [address], [place]. tel:[phone] Referring Provider: Deborah Marks, [address] [place], [address] . tel:[phone] [facility], [address] Jllyj593E8 8004856GL- [place], [address], [place] tel:[phone] Vision F1 Encounter for fit/adjst of spectacles and contact lenses Jan- 2 Genia Aponte. [address], [place], [address], [place]. tel:[phone] Referring Provider: Fay Cormier , [address] [place], [address] . tel:[phone] [facility], [address] Kpiwj423O0 1118060XL- [place], [address], [place] tel:[phone] [facility] No Information Jan-0 2 No Information [facility], [address] Wfiqk325O5 3506873TQLodi, [place], [address], [place] tel:[phone] [facility] F2 Schizoaffect filemon disorder, bipolar type Jan- 2 Kendrick Cabrera. [address], [place], [address], [place]. tel:[phone] Referring Provider: Deborah Marks, [address] [place], [address] . tel:[phone] OFFICE/OUTPA TIENT VISIT EST [facility], [address] Quzgr941D4 5597382OY- [place], [address], [place] tel:[phone] [facility] Est care (chief complaint) Hypertension PrediabetesM ixed hyperlipidem iaEncounter for immunization Jan-0 2 Horacio Blackman. [address] [place], [address], [place]. tel:[phone] Referring Provider: Hiral Leonard, [address] [place], [address]. tel:[phone] [facility], [address] Uxvnz374G7 1633836EJ- [place], [address], [place] tel:[phone] Behavior[facility] F2 Medication Management (chief complaint)Eder izoaffective disorder (chief complaint)Gen eralized Anxiety Disorder (chief complaint) Schizoaffect filemon disorder, bipolar typeGenerali zed anxiety disorder 2 Kendrick Cabrera. [address], [place], [address], [place]. tel:[phone] Referring Provider: Deborah Marks, [address] [place], [address] . tel:[phone] [facility], [address] Xzhxv206I3 3647283SP- [place], [address], [place] tel:[phone] Vision F1 blurry vision (chief complaint) Hypermetropi a, bilateralReg ular astigmatism, bilateralPre sbyopiaAge-r elated nuclear cataract, bilateral 2 Genia Aponte. [address], [place], [address], [place]. tel:[phone] Referring Provider: Fay Cormier , [address] [place], [address] . tel:[phone] [facility], [address] Jnzog582A0 6936797KTLodi, [place], [address], [place] tel:[phone] [facility] F2 Medication Management (chief complaint)Eder izophrenia (chief complaint)Gen eralized Anxiety Disorder (chief complaint) Undifferenti ated schizophreni aGeneralized anxiety disorder 2 Kendrick Cabrera. [address], [place], [address], [place]. tel:[phone] Referring Provider: Deborah Marks, [address] [place], [address] . tel:[phone] [facility], [address] [place] [address], [address], [place] tel:[phone] Behavioral [facility] F2 Schizoaffect filemon disorder, bipolar type 2 Kendrick Cabrera. [address], [place], [address], [place]. tel:[phone] Referring Provider: Deborah Marks, [address] [place], [address] . tel:[phone] [facility], [id number] [place] [address], [address], [place] tel:[phone] Behavior[facility] F2 Medication Management (chief complaint)Anx iety (chief complaint)und ifferentiated schizophrenia (chief complaint) Generalized anxiety disorderUndi fferentiated schizophreni a 2 Kendrick Cabrera. [address], [place], [address], [place]. tel:[phone] Referring Provider: Deborah Marks, [address] [place], [address] . tel:[phone] OFFICE/OUTPA TIENT VISIT EST [facility], [address] Ettbv501K2 0463155BFLodi, [place], [address], [place] tel:[phone] [facility] F2 Hyperglycemia (chief complaint) Hyperglycemi aType 2 diabetes mellitus without complication s 2 Dakota Michel. [address] [place], [address], [place]. tel:[phone] Referring Provider: Anand Duncan, [address] [place], [address]. tel:[phone] [facility], [address] Quwpe583V5 6347955CQLodi, [place], [address], [place] tel:[phone] [facility] F2 Medication Management (chief complaint)Eder izophrenia (chief complaint)Gen eralized Anxiety Disorder (chief complaint) Undifferenti ated schizophreni aGeneralized Anxiety Disorder 2 Kendrick Cabrera. [address], [place], [address], [place]. tel:[phone] Referring Provider: Deborah Marks, [address] [place], [address] . tel:[phone] OFFICE/OUTPA TIENT VISIT, [facility], [address] Hueqr550L5 3260236AYLodi, [place], [address], [place] tel:[phone] Behavior[facility] F2 EPS (chief complaint) Extrapyramid al and movement disorder 2 Dakota Michel. [address] [place], [address], [place]. tel:[phone] Referring Provider: Anand Duncan, [address] [place], [address]. tel:[phone] OFFICE/OUTPA TIENT VISIT [facility], [address] Ruaiv939M6 2784631SPLodi, [place], [address], [place] tel:[phone] [facility] F2 Counseling (chief complaint) Counseling and coordination of careHypergly cemiaHyponat remia 2 Dakota Michel. [address] [place], [address], [place]. tel:[phone] Referring Provider: Anand Duncan, [address] [place], [address]. tel:[phone] [facility], [address] Zkcsp423X5 5392656HC- [place], [address], [place] tel:[phone] Behavior[facility] F2 Medication Management (chief complaint)Eder izophrenia (chief complaint)Gen eralized Anxiety Disorder (chief complaint) Undifferenti ated schizophreni aGeneralized Anxiety Disorder 2 Kendrick Cabrera. [address], [place], [address], [place]. tel:[phone] Referring Provider: Deborah Marks, [address] [place], [address] . tel:[phone] OFFICE/OUTPA TIENT VISIT [facility], [address] Fjxee733T2 2098587WLLodi, [place], [address], [place] tel:[phone] Behavioral [facility] F2 Follow Up (chief complaint) Benign prostatic hyperplasia with urinary frequencySch izophrenia, unspecified type 2 Dakota Michel. [address] [place], [address], [place]. tel:[phone] Referring Provider: Anand Duncan, [address] [place], [address]. tel:[phone] OFFICE/OUTPA TIENT VISIT, [facility], [address] Gpwyw210G6 8611670IMLodi, [place], [address], [place] tel:[phone] [facility] Weakness (chief complaint) WeaknessChro lizet cough 2 Bina Aponte. [address], [place], [address], [place]. tel:[phone] Referring Provider: Fadi Curran, [address] [place], [address] . tel:[phone] OFFICE/OUTPA TIENT VISIT EST [facility], [address] Euxrj949X4 2160368PD- [place], [address], [place] tel:[phone] Behavioral [facility] F2 Several Concerns (chief complaint) Acute coughSchizoa ffective disorder, bipolar typePrediabe tesBenign prostatic hyperplasia with urinary frequencyExt rapyramidal and movement disorderRash and other nonspecific skin eruptionHema turia, unspecified 2 Dakota Michel. [address] [place], [address], [place]. tel:[phone] Referring Provider: Anand Duncan, [address] [place], [address]. tel:[phone] [facility], [address] Murbt164R7 9786670XK- [place], [address], [place] tel:[phone] [facility] F2 Schizoaffect filemon disorder, bipolar type 2 Kendrick Cabrera. [address], [place], [address], [place]. tel:[phone] Referring Provider: Deborah Marks, [address] [place], [address] . tel:[phone] [facility], [address] Zkqcg522U9 2594251ST- [place], [address], [place] tel:[phone] [facility] F2 Medication Management (chief complaint)Eder izophrenia (chief complaint) Undifferenti ated schizophreni aGeneralized Anxiety Disorder 2 Kendrick Cabrera. [address], [place], [address], [place]. tel:[phone] Referring Provider: Deborah Marks, [address] [place], [address] . tel:[phone] [facility], [address] Pjfho608X6 4661587CW- [place], [place], [address], [place] tel:[phone] [facility] No Information 2 Jo Portillo. [address], [place], [address], [place]. tel:[phone] Referring Provider: Bandar Osorio, [address] [place], [address] . tel:[phone] OFFICE/OUTPA TIENT VISIT, [facility], [address] Wpkzz654D5 5827560CY- [place], [place], [address], [place] tel:[phone] [facility] cough (chief complaint) CoughNasal congestion with rhinorrhea 2 Jo Portillo. [address], [place], [address], [place]. tel:[phone] Referring Provider: Bandar Osorio, [address] [place], [address] . tel:[phone] PSYTX PT&/FAMILY 30 MINUTES [facility], [address] Rmebw839X7 9362406JG- [place], [address], [place] tel:[phone] [facility] Schizoaffect filemon disorder, bipolar type 2 Myron Houston. [address] [facility] , [place], [place], [address], [place]. tel:[phone] Referring Provider: Celso Sanches, [address] [place], [address] . tel:[phone] OFFICE/OUTPA TIENT VISIT [facility], [address] Hysdu532R6 8518250YS- [place], [place], [address], [place] tel:[phone] Behavior[facility] F2 Tremors (chief complaint) Schizoaffect filemon disorder, bipolar typeType 2 diabetes mellitus without complication , without long-term current use of insulinExtra pyramidal and movement disorderEsse ntial (primary) hypertension Other retirement (current) drug therapyPredi abetesTremor , unspecified Apr-0 2 Dakota Michel. [address] [place], [address], [place]. tel:[phone] Referring Provider: Anand Duncan, [address] [place], [address]. tel:[phone] OFFICE/OUTPA TIENT VISIT EST [facility], [address] Koszi303S2 7523091PULodi, [place], [address], [place] tel:[phone] Behavior[facility] F2 URI (chief complaint) Acute bronchitis due to other specified organisms Mar-3 2 Dakota Michel. [address] [place], [address], [place]. tel:[phone] Referring Provider: Anand Duncan, [address] [place], [address]. tel:[phone] [facility], [address] Rqarf239X1 6251276NGLodi, [place], [address], [place] tel:[phone] Behavior[facility] F2 new psych (chief complaint) Schizoaffect filemon disorder, bipolar type Mar-3 2 No Information OFFICE/OUTPA TIENT VISIT EST [facility], [address] Oyvrd649T1 7649176BJGolden, [place], [address], [place] tel:[phone] Behavior[facility] F2 Injection (chief complaint) Schizophreni a, unspecified type Mar-2 2 Dakota Michel. [address] [place], [address], [place]. tel:[phone] Referring Provider: Anand Duncan, [address] [place], [address]. tel:[phone] PSYTX PT&/FAMILY 30 MINUTES [facility], [address] Bdbpp276V7 4351964KT- [place], [address], [place] tel:[phone] [facility] Schizophreni a, unspecified type 2 Lyle Blunt. [address], [place], [address], [place]. tel:[phone] Referring Provider: Merlene Alvarenga, [address] [place], [address] . tel:[phone] OFFICE/OUTPA TIENT VISIT EST [facility], [address] Bfbaw490Y7 7933512VPGolden, [place], [address], [place] tel:[phone] [facility] cough/ congestion (chief complaint)htn (chief complaint) Acute coughNasal congestion with rhinorrheaFl uOther schizophreni aHypertensio n 2 Jo Portillo. [address], [place], [address], [place]. tel:[phone] Referring Provider: Bandar Osorio, [address] [place], [address] . tel:[phone] [facility], [address] Dguva661A8 6170987FELodi, [place], [address], [place] tel:[phone] [facility] No Information 2 Marjorie Moreno. [address], [place], [address], [place]. tel:[phone] Referring Provider: Tiffanie Amador, [address] [place], [address] . tel:[phone] [facility], [address] Apkid326Z4 6470847TKGolden, [place], [address], [place] tel:[phone] [facility] No Information 1 Evan Roque. [address], [place], [address], [place]. tel:[phone] Referring Provider: Mya Gusman, [address] [place], [address] . tel:[phone] OFFICE/OUTPA TIENT VISIT, [facility], [address] Sukqf530U0 8799953FZLodi, [place], [address], [place] tel:[phone] [facility] F2 Schizophreni a, unspecified type 1 Evan Roque. [address], [place], [address], [place]. tel:[phone] Referring Provider: Mya Gusman, [address] [place], [address] . tel:[phone] OFFICE/OUTPA TIENT VISIT [facility], [address] Nfppb903U0 3346504CALodi, [place], [address], [place] tel:[phone] [facility] prediabetes (chief complaint)Silvia k pain (chief complaint)BPH (chief complaint) PrediabetesT ype 2 diabetes mellitus without complication , without long-term current use of insulinChron ic bilateral low back pain with right-sided sciaticaOthe r chronic painBenign prostatic hyperplasia with urinary frequency 1 Evan Roque. [address], [place], [address], [place]. tel:[phone] Referring Provider: Mya Gusman, [address] [place], [address] . tel:[phone] [facility], [address] Fazle536C7 9075639SVLodi, [place], [address], [place] tel:[phone] [facility] No Information 1 Bina Aponte. [address], [place], [address], [place]. tel:[phone] Referring Provider: Fadi Curran, [address] [place], [address] . tel:[phone] OFFICE/OUTPA TIENT VISIT, EST [facility], [address] Nzcgs231U6 8672411FT- [facility], [place], [place], [address], [place] tel:[phone] [facility] Right upper leg pain / burning for the past (chief complaint) Right sided sciatica Feb-2 1 Jaren Larson. [address], [place], [address], [place]. tel:[phone] Referring Provider: Marsha Eastman, [address] [place], [address] . tel:[phone] [facility], [address] Dbuff417J4 6874562CSLodi, [place], [address], [place] tel:[phone] [facility] F2 Schizophreni a, unspecified type Feb- 1 Evan Roque. [address], [place], [address], [place]. tel:[phone] Referring Provider: Mya Gusman, [address] [place], [address] . tel:[phone] [facility], [address] Azyqu464D9 7324949JQ- [place], [place], [address], [place] tel:[phone] Family [facility] F1 Change of job 0 1 [facility]. [address], [place], [address], [place]. tel:[phone] [facility], [address] Wzfln389L7 6177860HH- [place], [address], [place] tel:[phone] [facility] F2 Schizophreni a, unspecified type Jan- 1 Evan Roque. [address], [place], [address], [place]. tel:[phone] Referring Provider: Mya Gusman, [address] [place], [address] . tel:[phone] OFFICE/OUTPA TIENT VISIT, [facility], [address] Rjazz761W9 8593824VW- [place], [place], [address], [place] tel:[phone] [facility] Earache (chief complaint) Acute otitis externa of right ear, unspecified type 1 Evan Roque. [address], [place], [address], [place]. tel:[phone] Referring Provider: Mya Gusman, [address] [place], [address] . tel:[phone] OFFICE/OUTPA TIENT VISIT, [facility], [address] Ttyaq789G2 2796907MSLodi, [place], [address], [place] tel:[phone] [facility] Schizophreni a, unspecified type 1 Evan Roque. [address], [place], [address], [place]. tel:[phone] Referring Provider: Mya Gusman, [address] [place], [address] . tel:[phone] [facility], [address] Zqcwe259T1 0724250HMLodi, [place], [address], [place] tel:[phone] [facility] F1 Cough 1 Med [facility]. [address], [place], [address], [place]. tel:[phone] Referring Provider: Theron Jovel, [address] [place], [address] . tel:[phone] OFFICE/OUTPA TIENT VISIT [facility], [address] Kkgrc796V5 9003892OHGolden, [place], [address], [place] tel:[phone] [facility] Viral syndrome (chief complaint)cou gh, congestion x 1 wk (chief complaint) Contact with and (suspected) exposure to other viral communicable diseasesVira l URI 1 [facility]. [address], [place], [address], [place]. tel:[phone] Referring Provider: Theron Jovel, [address] [place], [address] . tel:[phone] [facility], [address] Gohgv757G3 7507215EBLodi, [place], [address], [place] tel:[phone] Family [facility] F1 Unemployment 1 [facility]. [address], [place], [address], [place]. tel:[phone] [facility], [address] Jjwbs019T2 4855962FELodi, [place], [address], [place] tel:[phone] [facility] F2 No Information 1 Evan Roque. [address], [place], [address], [place]. tel:[phone] Referring Provider: Mya Gusman, [address] [place], [address] . tel:[phone] [facility], [address] Nvnsc367U6 2863763GJLodi, [place], [address], [place] tel:[phone] [facility] behavioral health f/u (chief complaint)dep ression (chief complaint) Schizophreni a, unspecified type 1 Evan Roque. [address], [place], [address], [place]. tel:[phone] Referring Provider: Mya Gusman, [address] [place], [address] . tel:[phone] [facility], [address] Jthnp239H5 5637976XULodi, [place], [address], [place] tel:[phone] [facility] Schizophreni a, unspecified type 1 Gordon Mya. [address], [place], [address], [place]. tel:[phone] Referring Provider: Mya Gusman, [address] [place], [address] . tel:[phone] [facility], [address] Urope018E1 1634615YPLodi, [place], [address], [place] tel:[phone] [facility] Schizoaffecti ve disorder (chief complaint) Hypo-osmolal ity and hyponatremia Other manager intermediate (current) drug therapyMixed hyperlipidem iaSchizophre michaela, unspecified type 1 Evan Mya. [address], [place], [address], [place]. tel:[phone] Referring Provider: Mya Gusman, [address] [place], [address] . tel:[phone] [facility], [address] Piktn618V5 5528661JLLodi, [place], [address], [place] tel:[phone] [facility] Schizophreni a, unspecified type 1 Evan Roque. [address], [place], [address], [place]. tel:[phone] Referring Provider: Mya Gusman, [address] [place], [address] . tel:[phone] OFFICE/OUTPA TIENT VISIT, EST [facility], [address] Fgpbd089Z4 1030001WQLodi, [place], [address], [place] tel:[phone] [facility] knots on legs (chief complaint) Worried well 1 Evan Roque. [address], [place], [address], [place]. tel:[phone] Referring Provider: Mya Gusman, [address] [facility], [place], [address] . tel:[phone] [facility], [address] Zlbjb676S3 7404047QW- [facility], [place], [place], [address], [place] tel:[phone] [facility] Schizophreni a, unspecified type Apr-2 1 Evan Mya. [address], [place], [address], [place]. tel:[phone] Referring Provider: Mya Gusman, [address] [facility], [place], [address] . tel:[phone] [facility], [address] Xhhqb095M5 2935472UX- [place], [address], [place] tel:[phone] [facility] Schizophrenia (chief complaint) Schizophreni a, unspecified type Mar-2 1 Evan Mya. [address], [place], [address], [place]. tel:[phone] Referring Provider: Mya Gusman, [address] [place], [address] . tel:[phone] OFFICE/OUTPA TIENT VISIT, [facility], [address] Wtohs486N3 0852020BN- [facility], [place], [place], [address], [place] tel:[phone] [facility] Dizziness (chief complaint) Dizzy Mar-0 1 Evan Mya. [address], [place], [address], [place]. tel:[phone] Referring Provider: Mya Gusman, [address] [place], [address] . tel:[phone] [facility], [address] Comqq103G0 [facility] [place], [place], [address], [place] tel:[phone] [facility] Schizophreni a, unspecified type Mar-0 1 Gordon Mya. [address], [place], [address], [place]. tel:[phone] Referring Provider: Mya Gusman, [address] [place], [address] . tel:[phone] [facility], [address] Prviz809U8 9197806TFGolden, [place], [address], [place] tel:[phone] [facility] [place] Schizophreni a, unspecified type 1 Gordon Mya. [address], [place], [address], [place]. tel:[phone] Referring Provider: Mya Gusman, [address] [place], [address] . tel:[phone] [facility], [address] Tbpsx982G5 8950542ZSLodi, [place], [address], [place] tel:[phone] [facility] F1 Schizophreni a, unspecified type 0 Gordon Mya. [address], [place], [address], [place]. tel:[phone] Referring Provider: Mya Gusman, [address] [place], [address] . tel:[phone] [facility], [address] Zxryz841L1 0893192JTLodi, [place], [address], [place] tel:[phone] [facility] F2 No Information 0 Gordon Mya. [address], [place], [address], [place]. tel:[phone] Referring Provider: Mya Gusman, [address] [place], [address] . tel:[phone] OFFICE/OUTPA TIENT VISIT, EST [facility], [address] Rthbm783J8 6696142KS- [place], [place], [address], [place] tel:[phone] [facility] [place] Referral for urologist (chief complaint)bed bugs (chief complaint)Blo od in stool (chief complaint) Urinary frequencyBlo od in stoolInfesta tion by bed bugOther retirement (current) drug therapyPredi abetesBenign prostatic hyperplasia with urinary frequencyOth er microscopic hematuria Apr-0 7-202 0 Evan Roque. [address], [place], [address], [place]. tel:[phone] Referring Provider: Mya Gusman, [address] [place], [address] . tel:[phone] [facility], [address] Iyaki105O0 2134823CTLodi, [place], [address], [place] tel:[phone] [facility] Schizophreni a, unspecified type 0 0 Evan Roque. [address], [place], [address], [place]. tel:[phone] Referring Provider: Mya Gusman, [address] [place], [address] . tel:[phone] OFFICE/OUTPA TIENT VISIT EST [facility], [address] Zebtg758I0 2680618EY- [place], [place], [address], [place] tel:[phone] [facility] Rash (chief complaint) Rash and other nonspecific skin eruption Mar-0 2202 0 Bina Aponte. [address], [place], [address], [place]. tel:[phone] Referring Provider: Fadi Curran, [address] [place], [address] . tel:[phone] [facility], [address] Csapi406D7 5823535HBGolden, [place], [address], [place] tel:[phone] [facility] [place] Schizophreni a, unspecified type Feb 0 Gordon Mya. [address], [place], [address], [place]. tel:[phone] Referring Provider: Mya Gusman, [address] [place], [address] . tel:[phone] [facility], [address] Fravt259Y9 8977654QM- [place], [address], [place] tel:[phone] [facility] [place] Schizophreni a, unspecified type Sep-3 0 Gordon Mya. [address], [place], [address], [place]. tel:[phone] Referring Provider: Mya Gusman, [address] [place], [address] . tel:[phone] [facility], [address] Afbok962Q8 7152397SMLodi, [place], [address], [place] tel:[phone] [facility] [place] [place] Schizophrenia (chief complaint) Schizophreni a, unspecified typeGenerali zed Anxiety Disorder 0 Gordon Mya. [address], [place], [address], [place]. tel:[phone] Referring Provider: Mya Gusman, [address] [place], [address] . tel:[phone] [facility], [address] Pkojq882O3 9205237YR- [place], [address], [place] tel:[phone] [facility] [place] Generalized Anxiety Disorder Nov- 0 Evan Mya. [address], [place], [address], [place]. tel:[phone] Referring Provider: Mya Gusman, [address] [place], [address] . tel:[phone] [facility], [address] Ipnya515W6 7937630ZELodi, [place], [address], [place] tel:[phone] [facility] F1 Schizophreni a, unspecified type 0 Gordon Mya. [address], [place], [address], [place]. tel:[phone] Referring Provider: Mya Gusman, [address] [place], [address] . tel:[phone] [facility], [address] [id number], [id number], [place] tel:[phone] Family Medicine F2 schizophrenia (chief complaint) Schizophreni a, unspecified typeGenerali zed Anxiety Disorder 0 [facility] Mya. [address], [place], [id number], [place]. tel:[phone] Referring Provider: Mya Gusman, [address] [place], [address] . tel:[phone] [facility], [id number], [id number], [place] tel:[phone] Family Medicine F1 hypertension (chief complaint) No Information 0 Gordon Mya. [address], [place], [address], [place]. tel:[phone] Referring Provider: Mya Gusman, [address] [place], [address] . tel:[phone] [facility], [address]ytai357S3 2705441CTGold[place], [place], [address], [place] tel:[phone] Family Medicine F1 Schizophrenia (chief complaint) Schizophreni a, unspecified typeFrequenc y of micturition 0 Gordon Mya. [address], [place], [address], [place]. tel:[phone] Referring Provider: Mya Gusman, [address] [place], [address] . tel:[phone] OFFICE/OUTPA TIENT VISIT, EST [facility], [address] Agrel752S2 2204745RN- [place], [place], [address], [place] tel:[phone] Family Medicine F1 Blood in urine (chief complaint) Frequency of micturition Aug-2 0 Evan Roque. [address], [place], [address], [place]. tel:[phone] Referring Provider: Mya Gordon R, [address] [place], [address] . tel:[phone] [facility], [address] Kxlpa168N9 5050733BLLodi, [place], [address], [place] tel:[phone] Family Medicine F1 Hematuria, unspecified 0 Cale Hernandez. [address], [place], [address], [place]. tel:[phone] Referring Provider: David Flores, [address] [place], [address] . tel:[phone] [facility], [address] Vvuux[address] 8798058NPL[place], [place], [address], [place] tel:[phone] Behavioral Medicine F2 No Information 0 No Information OFFICE/OUTPA TIENT VISIT EST [facility], [address] Fvhvn280N9 8537306UQL[place], [place], [address], [place] tel:[phone] Behavioral Medicine F2 Follow Up of Mood [...] therapy Jul-3 0 Aquilino Potter. [address], [place], [address], [place]. tel:[phone] Referring Provider: Abbey Rolle, [address] [place], [address] . tel:[phone] [facility], [address] Smdhr391F7 5113363ICL[place], [place], [address], [place] tel:[phone] Behavioral Medicine F2 Mixed hyperlipidem iaEssential (primary) hypertension Other retirement (current) drug therapy Jul-2 0 No Information OFFICE/OUTPA TIENT VISIT, EST [facility], [address] Grzas751Z5 1698850TVLodi, [place], [address], [place] tel:[phone] Behavioral Medicine F2 Schizophrenia (chief complaint)MAIDA (chief complaint)med ication management (chief complaint) Schizophreni a, unspecified type Jul-2 0 No Information [facility], [address] Dgwzw[address]X5 8731190QAGlen [place], [place], [address], [place] tel:[phone] [facility] [place] Schizophreni a, unspecified type Jul-0 0 Evan Roque. [address], [place], [address], [place]. tel:[phone] Referring Provider: Mya Gusman, [address] [place], [address] . tel:[phone] [facility], [address] Wqhwt292P5 7105996VXLodi, [place], [address], [place] tel:[phone] [facility] [place] Schizophreni a, unspecified type Fe- 0 Evan Roque. [address], [place], [address], [place]. tel:[phone] Referring Provider: Mya Gusman, [address] [place], [address] . tel:[phone] [facility], [address] Rluse399Q0 6653572OQ- [facility], [place], [place], [address], [place] tel:[phone] [facility] [place] No Information 0 Evan Roque. [address], [place], [address], [place]. tel:[phone] Referring Provider: Mya Gusman, [address] [place], [address] . tel:[phone] OFFICE/OUTPA TIENT VISIT, [facility], [address] Zkwsb755G3 5486649WDGolden, [place], [address], [place] tel:[phone] [facility] [place] Shortness of breath (chief complaint) COPD 0 Evan Roque. [address], [place], [address], [place]. tel:[phone] Referring Provider: Mya Gusman, [address] [place], [address] . tel:[phone] [facility], [address] [id number] 6848049YAGolden, [place], [address], [place] tel:[phone] [facility] [place] No Information 0 Evan Roque. [address], [place], [address], [place]. tel:[phone] Referring Provider: Mya Gusman, [address] [place], [address] . tel:[phone] [facility], [address] Xrvsm803U7 5017641WDGolden, [place], [address], [place] tel:[phone] [facility] [place] Follow Up of Schizophrenia (chief complaint) Schizophreni a, unspecified typeGenerali zed Anxiety Disorder May-0 9-202 0 Gordon Mya. [address], [place], [address], [place]. tel:[phone] Referring Provider: Mya Gusman, [address] [place], [address] . tel:[phone] [facility], [address] Zpnha088P1 9736108UXLodi, [place], [address], [place] tel:[phone] [facility] [place] Schizophreni a, unspecified type 0 2-202 0 Gordon Mya. [address], [place], [address], [place]. tel:[phone] Referring Provider: Mya Gusman, [address] [place], [address] . tel:[phone] [facility], [address] Yfmct[address]X2 3427406DDLodi, [place], [address], [place] tel:[phone] [facility] (chief complaint) Other retirement (current) drug therapySchiz ophrenia, unspecified typeGenerali zed Anxiety Disorder Apr-0 201 9 Gordon Mya. [address], [place], [address], [place]. tel:[phone] Referring Provider: Mya Gusman, [address] [place], [address] . tel:[phone] [facility], [address] Hpnrx095P1 3006160MHLodi, [place], [address], [place] tel:[phone] [facility] [place] Schizophreni a, unspecified type 0 9 Gordon Mya. [address], [place], [address], [place]. tel:[phone] Referring Provider: Mya Gusman, [address] [place], [address] . tel:[phone] OFFICE/OUTPA TIENT VISIT [facility], [address] Kmwpf649O7 4352429XMGolden, [place], [address], [place] tel:[phone] [facility] [place] Est. Care (chief complaint)Mus culoskeletal pain (chief complaint)Tamela rrhea (chief complaint) Diarrhea, unspecified typeSciatica of left sideSchizoph herb, unspecified typeOther retirement (current) drug therapy 9 Evan Roque. [address], [place], [address], [place]. tel:[phone] Referring Provider: Mya Gusman, [address] [place], [address] . tel:[phone] OFFICE/OUTPA TIENT VISIT, [facility], [address] Cikbq078Z1 1228998SSLodi, [place], [address], [place] tel:[phone] Family Medicine F1 Body aches, nausea, (chief complaint) Viral syndrome 9 No Information OFFICE/OUTPA TIENT VISIT, [facility], [address] Mgafn486C7 6274456YILodi, [place], [address], [place] tel:[phone] Family Medicine F1 Hospital F/U (chief complaint) Hospital discharge follow-up 9 No Information [facility], [address] Eeoqg696J8 4164853VALodi, [place], [address], [place] tel:[phone] Family Medicine F1 Generalized Anxiety Disorder 9 No Information OFFICE/OUTPA TIENT VISIT, [facility], [address] Mmulq090G7 5363661EULodi, [place], [address], [place] tel:[phone] Family Medicine F1 Exam diarrhea (chief complaint) Diarrhea, unspecified type 9 Bina Aponte. [address], [place], [address], [place]. tel:[phone] Referring Provider: Fadi Curran, [address] [place], [address] . tel:[phone] OFFICE/OUTPA TIENT VISIT, [facility], [address] Bctrf927V3 5282325NQLodi, [place], [address], [place] tel:[phone] Family Medicine F1 Diarrhea (chief complaint) Diarrhea, unspecified type Feb-0 7 9 No Information [facility], [address] Ajdlt[address]C5 1465208MULodi, [place], [address], [place] tel:[phone] Family Medicine F1 No Information Feb-0 9 No Information [facility], [address] Rxskl[address]R6 6546835ICLodi, [place], [address], [place] tel:[phone] Family Medicine F1 No Information Feb-0 9 Jose D Armstrong. [address], [place], [address], [place]. tel:[phone] Referring Provider: Nathaniel Jeffery, [address] [place], [address] . tel:[phone] OFFICE/OUTPA TIENT VISIT, [facility], [address] Ssfxr519S2 2458581YSLodi, [place], [address], [place] tel:[phone] Family Medicine F1 Diarrhea (chief complaint) Diarrhea, unspecified typeTremors of nervous system Sep-3 0 9 No Information OFFICE/OUTPA TIENT VISIT, [facility], [address] Mihes469C9 5671603QXLodi, [place], [address], [place] tel:[phone] Family Medicine F1 Hospital F/U (chief complaint) Homelessness Hospital discharge follow-up Jan- 9 No Information OFFICE/OUTPA TIENT VISIT, [facility], [address] Mbqji769P4 0999406DM- [facility], [place], [place], [address], [place] tel:[phone] Family Medicine F1 Invega Injection (chief complaint) Schizophreni a, unspecified type No Information OFFICE/OUTPA TIENT VISIT, [facility], [address] Tvoer642P4 8[facility]056[facility], [place], [place], [address], [place] tel:[phone] Family Medicine F1 Medication Management (chief complaint)Nee ds Note (chief complaint) Generalized Anxiety DisorderHype rtensionUrin hanane frequencyMix ed hyperlipidem ia No Information [facility], [address] Eunqm058T9 8886987GWGrisell [facility], [place], [place], [address], [place] tel:[phone] Family Medicine F1 Pain in left foot 9 Suzanne Rodriguez. [address], [place], [address], [place]. [phone] Referring Provider: Michael Palacios, [address] [place], [address] . tel:[phone] [facility], [address] Bbnht809J2 9087801AU[facility], [place], [place], [address], [place] tel:[phone] Family Medicine F1 No Information 9 No Information OFFICE/OUTPA TIENT VISIT, [facility], [address] Jlfqo762W4 2669469KMLodi, [place], [address], [place] tel:[phone] Family Medicine F1 Left foot pain (chief complaint) Left foot painHomeless ness 9 No Information [facility], [address] Cugqi635H0 4750272YXGolden, [place], [address], [place] tel:[phone] Family Medicine F1 Homelessness 9 [facility]. [address], [place], [address], [place]. tel:[phone] Referring Provider: [facility], [address] [place], [address] . tel:[phone] OFFICE/OUTPA TIENT VISIT, EST [facility], [address] Gixjz752C3 5153994KJ- [place], [place], [address], [place] tel:[phone] Family Medicine Establish Care (chief complaint)walt elessness (chief complaint) Generalized Anxiety DisorderHype rtensionMixe d hyperlipidem iaHomelessne ss No Information [facility], [address] Pfqic945T0 8602223VTGolden, [place], [address], [place] tel:[phone] Family Medicine Homelessness 9 Health [facility]. [address], [place], [address], [place]. [phone] Referring Provider: [facility], [address] [place], [address] . tel:[phone] [facility], [address] Nfjud995S0 9934970BC- [place], [place], [address], [place] tel:[phone] [facility] Integration Other specified counseling No Information [facility], [address] Ipyde984Q2 8656249PE- [place], [place], [address], [place] tel:[phone] [facility] No Information 9 Dakota Michel. [address] [place], [address], [place]. tel:[phone] Referring Provider: Anand Duncan, [address] [place], [address]. tel:[phone] [facility], [address] Sfuye901M4 9771458QV- [facility], [place], [place], [address], [place] tel:[phone] [facility] No Information 9 Dakota Michel. [address] [place], [address], [place]. tel:[phone] Referring Provider: Annad Duncan, [address] [place], [address]. tel:[phone] [facility], [address] Qjwcl054I5 3827286HFGolden, [place], [address], [place] tel:[phone] [facility] No Information 8 Dakota Michel. [address] [place], [address], [place]. tel:[phone] Referring Provider: Anand Duncan, [address] [place], [address]. tel:[phone] OFFICE/OUTPA TIENT VISIT, [facility], [address] Mwhja696C9 6403858UZGolden, [place], [address], [place] tel:[phone] [facility] Est. Care (chief complaint)Chr onic conditions (chief complaint) Hypertension Mixed hyperlipidem iaGeneralize d Anxiety DisorderHypo natremiaUrin hanane frequency 8 Dakota Michel. [address] [place], [address], [place]. tel:[phone] Referring Provider: Anand Duncan, [address] [place], [address]. tel:[phone] [facility], [address] Mexim379J2 4328583BFGolden, [place], [address], [place] tel:[phone] [facility] No Information 3201 8 Dakota Michel. [address] [place], [address], [place]. tel:[phone] Family History Family Member Type Diagnosis Age At Onset No Information Immunizations Vaccine Date Status Comments Tdap (7 yrs and older) administered Note: VIS: 12/17/20 Patient had no reaction while in clinic. kw ; Source: New Immunization Record Flu Vaccine 6 Months and older administered Source: Public Agenc y Flu Vaccine 6 Months and older administered Note: pt reports at [facility] ; Source: Source Unspecified Payers Payer name Insurance type Covered green party ID Authorizbayron quiñones(s) M [facility] Dual Com plete Medica CI [id number] M [place] Medicaid MC [id number] [facility] Dual Com plete Medica CI [id number] M [place] [employer] MC [id number] Social History Type Description Quantity Date Captured [...] counseling completed Referral Ordered: Ref[facility]: [facility]. [facility] Consult ordered Referral Ordered: Referrals: Urology. Location: [facility]. Assume care ordered Referral Ordered: Referrals: physcial therapy. Location: [facility]. Evaluate and treat ordered Referral Ordered: Referrals: Location: SDOH (related to Unemployment) ordered Referral Ordered: AARP (related to Unemployment) ordered Referral Ordered: Referrals: Urology. Location: [facility]. Evaluate and treat ordered Referral Ordered: Referrals: Urology ordered Referral Ordered: Referrals: neurologist ordered Referral Ordered: Referrals: [place] ordered Referral Ordered: Referrals: Location: [facility] ordered Referral Ordered: Referrals: Urology. Consult ordered Patient Education Sciatica: Exercises com pleted Patient Education Sciatica: Care Instruct ions completed Patient Education Sciatica: Exercises com pleted Patient Education Low Back Pain: Exercise s completed Future Order: Lab Order [id number]-D linic/POC ([id number]), Appointment on: , Sent on: Sent Future Order: Lab Order COVID-19 PCR-JV ([id number]), Sent on: Sent Future Order: Radiology Order Ch est 2 Views ([id number]), Ordered on: Ordered History Of Present Illness Encounter Date Complaint History Of Prese nt Illness Medication Management Telephone appointment today.Robert reports he has moved to [place] and is needing his injection sent to the Pharmacy in [place] to make sure he does not miss a dosage. He states he relocated there with his brother.He states he could not take it anymore in [place], and needed to get out of town.He denies SI/HI/AH/VH.He has no complaints or concerns at this time.Plans on establishing care in [place] for Psychiatric Care. Schizoaffective disorder This is [...] denies any associated symptoms. 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 Patient is stimulated with [...] He would like to see urology at [facility] for his bladder and BPH- no [...] with a friend. Was recently seen in [facility] and encouraged to follow up with PCP. When discussing appointment with patient today, he states everything is fine. He denies SI/HI/AH/VH. He feels his tremors have decreased with cogentin. He is slightly dishevel in appearance. He has a laundry bag with him today, and states he is going to go to the fruit picker machine operator after this appointment. He is alert [...] Tele-Session don e due to contract with [employer] to provide off-site services; Verbal consent from Patient received; All Medications to be e-scribed through NEXT GEN -Chief Complaint / Establish care - ADMITTED TO [facility] FOR 10 DAYS IN JULY 2021 FOR REPORTING SUICIDAL THOUGHTS -PERRECORD - HAS HISTORY OF VERBAL AND PHYSICAL AGGRESSION - INNAPPROPRIATE SEXUAL BEHAVIORS - MANIC AND POSSIBLE MANIPULATIVE BEHAVIORS AND NON COMPLIANCE TO TREATMENT - HOMELESS -WITH POOR INSIGHT [facility] DISCHARGED ON INVEGA SUSTENNA 156MG IM [...] Alcohol- ; DENIED SOCIAL HISTORYLiving Situation -[facility] Martial Situation-; Children - NONE Highest Education- 6TH GRADE 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 Has a hx of hematuria. Has [...] he is seeing a urologist-Dr. Campuzano at [facility]. Pt reports that he would like to change clinics. He has surgery for his bladder in December and is wanting to see a different provider and would like to go to [facility]. Blood in stool Pertinent negati ves include abdominal distention, abdominal pain, bloating, change in bowel habits, constipation, decreased appetite, diarrhea, dysphagia, heartburn, nausea, perirectal itching, rectal pain, rectal pain associated with bleeding, vomiting and weight loss. Additional information: Pt had colonoscopy at [facility] last year. Has had this off [...] of Flomax and refer for Urologist at [facility] at this time. WBC is low [...] medication. No SI or HI. Has a health safety coordinator, Cr, at [facility]. Shortness of breath In the inter scar [...] behaviors were discussed; illegal drugs, prescription drugs, wtda-pzx-dwatveu drugs, gambling, alcohol, tobacco and vaping.Reports alcoholism, [...] of the time. HTNBPHHyperlipidemiaSocial History:[facility] Social Supports were discussed; jehovah's witness, family/friendships, therapy, and cultural/ethnic/community supports. I believe in GodPatient reports having support from God, ERROL-Cr, familySexual Orientation: born male, ID male, heterosexualMarital Status: girlfriendNumber of times /: 1/0/is . Children: noneMilitary Service: deniesLegal Information (guardian, probation, parole):Reports hx of incarcerationHas current charge for trespassing at [facility] History:Denies inutero exposure to drugs/alcoholMet milestones on [...] Care PHQ 0.Seeing a n eurologist at [facility]-for parkinsons dslast colonoscopy was 5 years [...] diarrhea today. Pt reports needing money to cherry picker operator prescriptions. Pt requesting OTC medications prescribed. [...] note stati james he was here for [employer]. Left foot pain Location: left f oot. Establish Care Pt needing to es tablish care. homelessness Pt needing help getting medications cannot afford. Est. Care The symptoms are reported as being moderate. The symptoms occur daily. He states the symptoms are chronic. Benedicto Amaral is a 58 year old male that is a Resident at [employer]. He has been there for a [...] cations without change. E-scribed Invega Injection to [facility] [facility]. 2. Will be seen again if [...] to the clinic in 3 months for B6aEtqxwhtn good foot hygiene, wear closed toed shoes. [...] Related t o Undifferentiated schizophrenia referral to [facility]- he has seen urology before *about 4 yrs ago there*Return as neededReturn in 4 weeks w myself for a follow up exam Related to Benign prostatic hyperplasia with urinary frequency Return in 10 days fo r a follow up for your injection- Make and keep an apt w [place] in 2 weeks Related to Schizophrenia, unspecified type Hypertension education Related t o Benign prostatic hyperplasia with urinary frequency Dietary management e ducation, guidance, and counseling Related to Benign prostatic hyperplasia with urinary frequency Patient advised about exercise R elated to Benign prostatic hyperplasia with urinary frequency Weight control education Related to Benign prostatic hyperplasia with urinary frequency as [...] hurt himself or others. Appointment made with [facility]. Related to Other schizophrenia Positive for flu [...] wishes to have this completed at the [place] location due to nurse preference. I offered [...] and recommendations for f/u. Related to Other manager intermediate (current) drug therapy as above Related to Predi abetes Pt responded well to treatment given in [place]. Reviewed methods to eradicate in apartment, grain inspector is scheduled for tomorrow. Pt is aware [...] f/u.Pt requests to move urology services to [facility]. ROR for Dr. Ortega's office to [...] therapy Hypertension education Related t o Other manager intermediate (current) drug therapy 1. Patient will be [...] Referral for assiste d living per nurse healthcare financial analyst. Related to Homelessness Xray left foot today [...] [facility] [...]
[2024-08-12 08:41] VITALS: BP 143/101; BMI 36.0
[2024-11-20 02:45] VITALS: BP 180/116; PULSE 90; RESP 16; TEMP 36.7; O2SAT 97
--- NOTE | 2024-11-20 02:48 | XRR_ITS ---
PROCEDURE INFORMATION: Exam: XR Chest Exam date and time: 11/20/2024 2:54 AM Age: 64 years old Clinical indication: Shortness of breath; Additional info: SOB TECHNIQUE: Imaging protocol: Radiologic exam of the chest. Views: 1 view. COMPARISON: CR (CHEST, ) 11/15/2024 10:50 AM FINDINGS: Lungs: Unremarkable. No consolidation. Pleural spaces: Unremarkable. No pleural effusion. No pneumothorax. Heart/Mediastinum: Unremarkable. No cardiomegaly. Bones/joints: Unremarkable. XR/XR chest 1V portable [id number] IMPRESSION: No visualized acute cardiopulmonary process.
[2024-11-20 02:49] VITALS: BP 166/92; PULSE 90; RESP 16; O2SAT 94
--- OUTSIDE RECORDS SUMMARY | 2024-11-20 02:49 | XMS_ITS | Clinical Summary ---
Author Organization [facility] Address [address] [facility] [address] Attn: Epic Prelude ADT [place]RAL [phone] Care Team Providers Care Direct Chill Caster Name Role Phone Unavailable Primary Care Provider Unavailabl e Allergies Active Allergy Reactions Criticality Noted Date Comments Lactose Diarrhea Medium 08/03/2022 [place] Anaphylaxis,Other (S ee Comments) High 05/02/2018 Vomiting [...] admission 06/15 Borderline diabetes 06/20/2021 Atherosclerosis of [place] co ronary artery of [place] heart without angina pectoris 06/13/2021 Benign prostatic [...] week 07/09/2021 How often do you attend [facility] or adventist services? More than 4 times per year 07/09/2021 Do you belong to any clubs o r organizations such as holiness groups, unions, fraternal or athletic groups, or [...] place to sleep or slept in a halfway (including now)? Yes 07/09/2021 Education Answer Date Recorded What is the highest level of school you have completed or the highest degree you have received? 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 [id number] RX OPTUM RX Member Subscriber Plan / Payer (Ef fective 2021-Present) Name:Benedicto Amaral Relation to Subscriber:Self Name:Benedicto Amaral Subscriber ID:Not on file Payer ID:Not on file Group ID:[id number] Type:RX Medicare Part D Address: [place] [facility] MEDICARE [id number] Advance Directives For more information, please contact: [phone] * Full Code (Latest Code Status on [...]
--- OUTSIDE RECORDS SUMMARY | 2024-11-20 02:50 | XMS_ITS | Patient Health Record ---
Author Organization [facility] Address [address] [place] [address] Care Team Providers Care Merchandising Stock Associate Name Role Phone Shemar Arcos MD Primary Care Provider UnavailMarlene Petty Unavailable [phone] Sb Hutchison Unavailable Reason For Referral No Information Problems Problem Type SNOMED Code ICD Code Onset Dates Problem Status W/U Status Risk Notes Problem Schizophrenia (74893755) Schizophrenia, unspecified (F20.9) Active confirmed Problem Severe recurrent major depression with psychotic features (84954902) Major depressive disorder, recurrent, severe with psychotic symptoms (F33.3) Active confirmed Problem Adjustment disorder with mixed disturbance of emotions AND conduct (50314113) Adjustment disorder with mixed disturbance of emotions and conduct (F43.25) Active confirmed Problem Anxiety (28556513) Anxiety (F41.9) Active confirmed Problem Psychosis (61493276) Psychosis (F29) Active confirmed Problem Benign prostatic hypertrophy without outflow obstruction (132926382) BPH loc w/o ur obs/LUTS (N40.0) Active confirmed Encounters Encounter Location Date Provider Diagnosis [facility] [address] [place] [address] [address] 11/07/2024 Sb Hutchison BPH loc w/o ur obs/LUTS N40.0 ; Major depressive disorder, recurrent, severe with psychotic symptoms F33.3 ; Schizophrenia, unspecified F20.9 ; Psychosis F29 ; Adjustment disorder with mixed disturbance of emotions and conduct F43.25 and Anxiety F41.9 Assessments Encounter Date Diagnosis (ICD Code) Assessment Notes Treatment Notes Treatment Clinical Notes Section Notes 11/07/2024 BPH loc w/o ur obs/LUTS (ICD-10 - N40.0) Medications reviewed, orders signed and documented with nursing staff. Vitals taken and recorded at [facility]. 11/07/2024 Major depressive disorder, recurrent, severe with psychotic symptoms (ICD-10 - F33.3) 11/07/2024 Schizophrenia, unspecified (ICD-10 - F20.9) 11/07/2024 Psychosis (ICD-10 - F29) 11/07/2024 Adjustment disorder with mixed disturbance of emotions and conduct (ICD-10 - F43.25) 11/07/2024 Anxiety (ICD-10 - F41.9) 11/07/2024 Other Plan Of Treatment No Information Insurance Providers Payer Name Payer Address Payer Phone Subscriber Number Group Number Insured Name Patient Relationship to Insured Coverage Start Date Coverage End Date NOT IN NETWORK - UHC Medicare Dual Complete HMO [address] [address] [place] [address] [id number] Benedicto Amaral Self - patient is the insured [place] Medicaid [address] [place] [address] [phone] [id number] Benedicto Amaral Self - patient is the insured
--- NOTE | 2024-11-20 02:51 | ECG_ITS ---
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 Measurements Intervals [place] Rate: 91 P: 49 MD: 172 QRS: 8 QRSD: 98 T: 48 QT: 383 QTc: 473 Interpretive Statements SINUS RHYTHM WITH FREQUENT VENTRICULAR PREMATURE COMPLEXES ABNORMAL RHYTHM ECG Compared to ECG 11/15/2024 10:42:55 Ventricular premature complex(es) now present Electronically Signed On 11-21-2024 15:26:42 CDT by Yusra White M.D. [id number] [id number]
--- NOTE | 2024-11-20 02:52 | ED_ITS ---
HPI - SOB/Dyspnea 2 General: Chief Complaint: Shortness of Breath/Dyspnea Stated Complaint: SOB Time Seen by Provider: 11/20/24 02:52 History of Present Illness: HPI Narrative: Patient presents with complaints of shortness of breath. Patient has a history of frequent ER visits and history of bipolar schizophrenia. Patient very difficult historian as yelling that he wants a urinal and a call light. Patient is very well-known to this facility. Patient very difficult to obtain a history from. He has been seen few times prior this month and had a negative evaluation including a negative CT abdomen pelvis for abdominal pain. Associated symptoms: Deny fever(s) Related Data Home Medications ?Medication ?Instructions ?Recorded ?Confirmed simvastatin 40 mg tablet 40 mg PO BEDTIME 02/19/24 cetirizine 10 mg tablet 10 mg PO DAILY 05/05/2410/05 losartan 25 mg tablet 25 mg PO DAILY 10/29/2410/05 paliperidone palmitate 234 mg/1.5 234 mg IM Q30D 10/2911/15/24 mL intramuscular syringe ([facility] paliperidone 3 mg tablet,extended 3 mg PO QAM 11/06/24 11/15/24 release 24 hr sodium chloride 1,000 mg soluble 1,000 mg PO BID 11/0611/15/24 tablet gabapentin 100 mg capsule 100 mg PO BID 11/15/2411/15 lorazepam 0.5 mg tablet 0.5 mg PO BID 11/15/2411/15 Previous Rx's ?Medication ?Instructions ?Recorded metformin 500 mg tablet 500 mg PO BIDWM 30 days #60 tabs 09/22/24 metoprolol tartrate 25 mg tablet 25 mg PO BID 30 days #60 tabs 09/22/24 divalproex 500 mg tablet,extended 500 mg PO BID #60 ta bs 11/05/24 release 24 hr (Depakote ER) risperidone 1 mg tablet (Risperdal) 1 mg PO BID #60 ta bs 11/05/24 Allergies Allergy/AdvReac Type Severity Reaction Status Date / Time lithium Allergy ADR-Nausea Verified 11/09/24 11:40 oxycodone (From OxyContin) Allergy nausea Verified 11/09/24 11:40 Penicillins Allergy ALGY-Difficulty Verified 11/09/24 11:40 Breathing Review of Systems 2 Const: Denies: fever(s) or chills Resp: Reports: dyspnea PFSH ED 2 PFSH: Medical History Cellulitis and abscess of left leg Chronic hyponatremia Schizoaffective disorder, bipolar type Seasonal allergies History of Parkinson's disease Hyperlipidemia Hypertension Psychiatric care Family History Father Cancer stomach Mother Cancer ovarian Social History Smoking and tobacco/nicotine status: former use of tobacco/nicotine Quit status (tobacco/nicotine): has quit using Year quit tobacco: Roughly 2014 Alcohol intake: current Alcohol intake frequency: holidays/special occasions only Substance/Drug Use: former Additional social history: Patient states he lives alone he would like full CODE STATUS as discussed 11/06/2024. He states that also if he saw Bear he would want to go forward to Bear Adopted: No Caregiver/support person: No Lives independently: Yes Household members: none Housing: Apartment Marital status: / Number of children: 1 Number of grandchildren: 2 Highest education level completed: 8th Grade Current occupational status: unemployed Pets and animals: No Leisure activites: exercise and clubs Sexually active: No Do you think of yourself as: Straight/Heterosexual Current gender identity: Male Janelle/Jewish: Restoration Special janelle needs: No Agree to transfusion: Yes Physical Exam 2 Const: COMMON NORMALS: no acute distress and average body habitus Resp: COMMON NORMALS: normal respiratory effort, No use of accessory muscles and clear to auscultation bilaterally AUSCULTATION: clear to auscultation bilaterally Cardio: COMMON NORMALS: regular rate and regular rhythm RATE: regular rate RHYTHM: regular rhythm Psych: APPEARANCE: Yes grossly normal SPEECH: Yes loud MOOD & AFFECT: Y es Labile affect present and Yes hostile affect Skin: COMMON NORMALS: no rashes or lesions noted GENERAL SKIN EXAM: no rashes or lesions noted Course 2 Vital Signs: Vital signs: Vital Signs Temperature 98.1 F 11/20/24 02:45 Pulse Rate 92 11/20/24 03:30 Respiratory Rate 16 11/20/24 02:49 Blood Pressure 160/90 11/20/24 03:19 Pulse Oximetry 96 11/20/24 03:30 Oxygen Delivery Me thod Room Air 11/20/24 02:49 MDM - SOB/Dyspnea Medical Decision Making Patient's labs were ordered and reviewed with previous labs and appear to be near his baseline. Patient is x-ray of your shows no acute findings. Patient was medically screened and discharged home as his symptoms are more behavioral with frequent visits with behavioral issues. Patient was stable upon discharge Lab Data 11/20/24 02:56 11/20/24 02:56 Labs/Radiology: Laboratory Results WBC 6.07 10^3/uL (3.29-11.43) 11/20/24 02:56 RBC 4.53 10^6/uL (3.85-5.65) 11/20/24 02:56 Hgb 12.60 g/dL (11.27-16.99) 11/20/24 02:56 Hct 39.1 % (37-53) 11/20/24 02:56 MCV 86.3 fl (82-101) 11/20/24 02:56 MCH 27.8 pg (27-33) 11/20/24 02:56 MCHC 32.2 g/dL (30-55) 11/20/24 02:56 RDW 13.9 % (12.1-15.1) 11/20/24 02:56 Plt Count 293 10^3/cmm (157-399) 11/20/24 02:56 MPV 9.2 fL (7.4-10.4) 11/20/24 02:56 Neut % (Auto) 48.8 % 11/20/24 02:56 Lymph % (Auto) 28.8 % 11/20/24 02:56 [place] % (Auto) 11.9 % 11/20/24 02:56 Eos % (Auto) 9.2 % 11/20/24 02:56 Baso % (Auto) 1.0 % 11/20/24 02:56 Neut # (Auto) 2.96 10^3/uL (1.8-7.7) 11/20/24 02:56 Lymph # (Auto) 1.8 10^3/uL (0.8-4.8) 11/20/24 02:56 [place] # (Auto) 0.7 10^3/uL (0.2-0.9) 11/20/24 02:56 Eos # (Auto) 0.6 10^3/uL (0.0-0.8) 11/20/24 02:56 Baso # (Auto) 0.1 10^3/uL (0.0-0.1) 11/20/24 02:56 Nucleated RBC % (auto) 0 % 11/20/24 02:56 Nucleated RBCs # 0.0 /100WBC 11/20/24 02:56 Sodium 131 mmol/L (136-145) L 11/20/24 02:56 Potassium 4.0 mmol/L (3.5-5.1) 11/20/24 02:56 Chloride 95 mmol/L (98-107) L 11/20/24 02:56 Carbon Dioxide 25 mmol/L (22-29) 11/20/24 02:56 Anion Gap 15.0 (5-19) 11/20/24 02:56 BUN 7 mg/dL (8-23) L 11/20/24 02:56 Creatinine 0.6 mg/dL (0.7-1.2) L 11/20/24 02:56 GFR Calculation 136.5 mL/min (90-130) H 11/20/24 02:56 Glucose 120 mg/dL (65-115) H 11/20/24 02:56 Calculated Osmolality 271 mOsm/kg (285-295) L 11/20/24 02:56 Calcium 8.8 mg/dL (8.5-10.5) 11/20/24 02:56 Troponin T Baseline 23 ng/L (0-15) H 11/20/24 02:56 XR interpretation done by ED provider, pending radiology final review Discharge Plan Discharge Patient Disposition: Home Clinical Impression: Encounter for medical screening examination, Breath shortness Condition: Stable Prescriptions: No Action simvastatin 40 mg tablet 40 mg PO BEDTIME Invega Sustenna 234 mg/1.5 mL syringe 234 mg IM Q30D Rx Instructions: Injection every 28 days Received at [facility] today, 10/29/24 divalproex [Depakote ER] 500 mg tablet extended release 24 hr 500 mg PO BID Qty: 60 3RF risperidone [Risperdal] 1 mg tablet 1 mg PO BID Qty: 60 3RF losartan 25 mg tablet 25 mg PO DAILY cetirizine 10 mg tablet 10 mg PO DAILY metformin 500 mg Tablet 500 mg PO BIDWM 30 Days Qty: 60 1RF metoprolol tartrate 25 mg tablet 25 mg PO BID 30 Days Qty: 60 1RF sodium chloride 1,000 mg tablet,soluble 1,000 mg PO BID paliperidone 3 mg tablet extended release 24hr 3 mg PO QAM lorazepam 0.5 mg tablet 0.5 mg PO BID gabapentin 100 mg capsule 100 mg PO BID Discharge Orders: Discharge ED (Routine); Ordered 11/20/24 Ordered By: Karl Armstrong Referrals: Shemar Arcos MD [Primary Care Provider, Family Practice] Discharge Diet: Usual diet Discharge Activity: Increase activity as tolerated Patient Instructions: Shortness of Breath (ED), Opioid Safety, Pain Management, Patient Portal & [place] Instructions Activity Restrictions/Additional Instructions: Please follow-up with your primary care provider as needed. Print Language: Sami Coding Level of Care Code ED Personal Lines Insurance Advisor for Brien Loomis
[2024-11-20 03:03] LABS: Hematocrit 39.1 % (37-53); Hemoglobin 12.60 g/dL (11.27-16.99); Mean Corpuscular HGB Conc 32.2 g/dL (30-55); Mean Corpuscular Hemoglobin 27.8 pg (27-33); Mean Corpuscular Volume 86.3 fl (82-101); Nucleated Red Blood Cells % 0 %; Platelet Count 293 10^3/cmm (157-399); Red Blood Count 4.53 10^6/uL (3.85-5.65); White Blood Count 6.07 10^3/uL (3.29-11.43)
[2024-11-20 03:19] VITALS: BP 160/90; PULSE 81; O2SAT 95
[2024-11-20 03:21] LABS: Troponin(5th) Baseline 23 ng/L (0-15)
[2024-11-20 03:23] LABS: Anion Gap 15.0 (5-19); Blood Urea Nitrogen 7 mg/dL (8-23); Calcium 8.8 mg/dL (8.5-10.5); Carbon Dioxide 25 mmol/L (22-29); Chloride 95 mmol/L (98-107); Glucose 120 mg/dL (65-115); Osmolality Calculated 271 mOsm/kg (285-295); Potassium 4.0 mmol/L (3.5-5.1); Sodium 131 mmol/L (136-145)
[2024-11-20 03:30] VITALS: PULSE 92; O2SAT 96
[2024-11-20 03:56] VITALS: BP 160/90; PULSE 90; O2SAT 95
== END 2024-11-20 03:58 | disposition home or self-care (01) ==
PROVIDERS: Emergency Provider Student in an Organized Health Care Education/Training Program; PCP Family Medicine
DX: R06.02 Shortness of breath (principal); F25.0 Schizoaffective disorder, bipolar type; E78.5 Hyperlipidemia, unspecified; I10 Essential (primary) hypertension; Z87.891 Personal history of nicotine dependence; Z79.899 Other long term (current) drug therapy; Z88.5 Allergy status to narcotic agent; Z88.0 Allergy status to penicillin; G20.A1 Parkinson's disease without dyskinesia, without mention of fluctuations
CPT/HCPCS: 36415; 71045; 80048; 84484; 85025; 93005; 99285

== ENCOUNTER 2024-11-27 20:48 | Emergency (ER) | payer OTHER, MEDICAID, SELFPAY ==
--- OUTSIDE RECORDS SUMMARY | 2003-05-13 19:00 | XMS_ITS | Continuity of Care Document ---
Author Name [facility] Address [address] [place] [address] Organization [facility] Care Team Providers Care Pier Runner Name Role Phone [facility] Unavailable Unavailable Allergies, Adverse Reactions, Alerts Substance Category Reaction Severity Reaction type Status Date Reported Comments Source PCN Assertion Drug allergy Active - [facility] OxyCONTIN Assertion Drug allergy Active [facility]
--- OUTSIDE RECORDS SUMMARY | 2022-04-14 10:31 | XMS_ITS | Continuity of Care Document ---
Author Organization [facility] Address [address] [id number] [address] Phone Care Team Providers Care Crab Butcher Name Role Phone Anand Duncan NP Unavailable [...] Diagnoses Date Provider Providers Copied on Encounter [facility], [address] Skthi276W0 8146971UR- [facility], [place], [place], [address], [place] tel:[phone] [facility] No Information 2 Dakota Anand. [address] [place], [address], [place]. tel:[phone] [facility], [address] Auqns069W6 8102616IO- [place], [address], [place] tel:[phone] Behavioral Medicine F2 Medication Management (chief complaint)Eder izoaffective disorder (chief complaint)Gen eralized Anxiety Disorder (chief complaint) Schizoaffect filemon disorder, bipolar typeGenerali zed anxiety disorder Sep- 2 Kendrick Cabrera. [address] [place], [place], [address], [place]. tel:[phone] Referring Provider: Deborah Marks, [address] [place], [address] . tel:[phone] [facility], [address] Iewyx622A5 6704992SI- [place], [address], [place] tel:[phone] Vision F1 Encounter for fit/adjst of spectacles and contact lenses Jan- 2 Genia Aponte. [address], [place], [address], [place]. tel:[phone] Referring Provider: Fay Cormier , [address] [place], [address] . tel:[phone] [facility], [address] Bcgah895J7 4303155XS- [place], [address], [place] tel:[phone] [facility] No Information Jan-0 2 No Information [facility], [address] Kvitr175V5 7891394GAClay [place], [address], [place] tel:[phone] Behavioral Medicine F2 Schizoaffect filemon disorder, bipolar type Jan- 2 Kendrick Cabrera. [address], [place], [address], [place]. tel:[phone] Referring Provider: Deborah Marks, [address] [place], [address] . tel:[phone] OFFICE/OUTPA TIENT VISIT EST [facility], [address] Wfosz526W1 4745599EF- [place], [address], [place] tel:[phone] [facility] Est care (chief complaint) Hypertension PrediabetesM ixed hyperlipidem iaEncounter for immunization Jan-0 2 Horacio Blackman. [address] [place], [address], [place]. tel:[phone] Referring Provider: Hiral Leonard, [address] [place], [address]. tel:[phone] [facility], [address] Opmmv310B6 0022245XI- [place], [address], [place] tel:[phone] Behavioral Medicine F2 Medication Management (chief complaint)Eder izoaffective disorder (chief complaint)Gen eralized Anxiety Disorder (chief complaint) Schizoaffect filemon disorder, bipolar typeGenerali zed anxiety disorder 2 Kendrick Cabrera. [address], [place], [address], [place]. tel:[phone] Referring Provider: Deborah Marks, [address] [place], [address] . tel:[phone] [facility], [address] Dkwco656C3 8034416AO- [place], [address], [place] tel:[phone] Vision F1 blurry vision (chief complaint) Hypermetropi a, bilateralReg ular astigmatism, bilateralPre sbyopiaAge-r elated nuclear cataract, bilateral 2 Genia Aponte. [address], [place], [address], [place]. tel:[phone] Referring Provider: Fay Cormier , [address] [place], [address] . tel:[phone] [facility], [address] Jsgwr062U9 5231446FWClay [place], [place], [address], [place] tel:[phone] Behavioral Medicine F2 Medication Management (chief complaint)Eder izophrenia (chief complaint)Gen eralized Anxiety Disorder (chief complaint) Undifferenti ated schizophreni aGeneralized anxiety disorder 2 Kendrick Cabrera. [address], [place], [address], [place]. tel:[phone] Referring Provider: Deborah Marks, [address] [place], [address] . tel:[phone] [facility], [address] [place] [address], [id number], [place] tel:[phone] Behavioral Medicine F2 Schizoaffect filemon disorder, bipolar type 2 Kendrick Cabrera. [address], [place], [address], [place]. tel:[phone] Referring Provider: Deborah Marks, [address] [place], [address] . tel:[phone] [facility], [address] [place] [address], [address], [place] tel:[phone] Behavioral Medicine F2 Medication Management (chief complaint)Anx iety (chief complaint)und ifferentiated schizophrenia (chief complaint) Generalized anxiety disorderUndi fferentiated schizophreni a 2 Kendrick Cabrera. [address], [place], [address], [place]. tel:[phone] Referring Provider: Deborah Marks, [address] [place], [address] . tel:[phone] OFFICE/OUTPA TIENT VISIT EST [facility], [address] Ktsig338G9 6757365HWClay [place], [place], [address], [place] tel:[phone] Behavioral Medicine F2 Hyperglycemia (chief complaint) Hyperglycemi aType 2 diabetes mellitus without complication s 2 Dakota Michel. [address] [place], [address], [place]. tel:[phone] Referring Provider: Anand Duncan, [address] [place], [address]. tel:[phone] [facility], [address] Lnfhc736W8 5979333IYClay [place], [place], [address], [place] tel:[phone] Behavioral Medicine F2 Medication Management (chief complaint)Eder izophrenia (chief complaint)Gen eralized Anxiety Disorder (chief complaint) Undifferenti ated schizophreni aGeneralized Anxiety Disorder 2 Kendrick Cabrera. [address], [place], [address], [place]. tel:[phone] Referring Provider: Deborah Marks, [address] [place], [address] . tel:[phone] OFFICE/OUTPA TIENT VISIT, [facility], [address] Tmuky507P3 7569631KZClay [place], [place], [address], [place] tel:[phone] Behavioral Medicine F2 EPS (chief complaint) Extrapyramid al and movement disorder 2 Dakota Michel. [address] [place], [address], [place]. tel:[phone] Referring Provider: Anand Duncan, [address] [place], [address]. tel:[phone] OFFICE/OUTPA TIENT VISIT [facility], [address] Nwygr075B2 8839123EZClay [place], [place], [address], [place] tel:[phone] Behavioral Medicine F2 Counseling (chief complaint) Counseling and coordination of careHypergly cemiaHyponat remia 2 Dakota Michel. [address] [place], [address], [place]. tel:[phone] Referring Provider: Anand Duncan, [address] [place], [address]. tel:[phone] [facility], [address] Tpgct783Q1 5314229YT- [place], [address], [place] tel:[phone] Behavioral Medicine F2 Medication Management (chief complaint)Eder izophrenia (chief complaint)Gen eralized Anxiety Disorder (chief complaint) Undifferenti ated schizophreni aGeneralized Anxiety Disorder 2 Kendrick Cabrera. [address], [place], [address], [place]. tel:[phone] Referring Provider: Deborah Marks, [address] [place], [address] . tel:[phone] OFFICE/OUTPA TIENT VISIT [facility], [address] Vslbn003F3 9293747CRClay [place], [place], [address], [place] tel:[phone] Behavioral Medicine F2 Follow Up (chief complaint) Benign prostatic hyperplasia with urinary frequencySch izophrenia, unspecified type 2 Dakota Michel. [address] [place], [address], [place]. tel:[phone] Referring Provider: Anand Duncan, [address] [place], [address]. tel:[phone] OFFICE/OUTPA TIENT VISIT, [facility], [address] Cizin053N4 8683900WCClay [place], [place] [address], [place] tel:[phone] [facility] Weakness (chief complaint) WeaknessChro lizet cough 2 Bina Aponte. [address], [place], [address], [place]. tel:[phone] Referring Provider: Fadi Curran, [address] [place], [address] . tel:[phone] OFFICE/OUTPA TIENT VISIT EST [facility], [address] Vxisu672S4 8876293GC- [place], [place], [address], [place] tel:[phone] Behavioral Medicine F2 Several Concerns (chief complaint) Acute coughSchizoa ffective disorder, bipolar typePrediabe tesBenign prostatic hyperplasia with urinary frequencyExt rapyramidal and movement disorderRash and other nonspecific skin eruptionHema turia, unspecified 2 Dakota Michel. [address] [place], [address], [place]. tel:[phone] Referring Provider: Anand Duncan, [address] [place], [address]. tel:[phone] [facility], [address] Wzvyb385S5 1233230BZ- [place], [address], [place] tel:[phone] Behavioral Medicine F2 Schizoaffect filemon disorder, bipolar type 2 Kendrick Cabrera. [address], [place], [address], [place]. tel:[phone] Referring Provider: Deborah Marks, [address] [place], [address] . tel:[phone] [facility], [address] Vnyup371Y3 9178607YX- [place], [place], [address], [place] tel:[phone] Behavioral Medicine F2 Medication Management (chief complaint)Eder izophrenia (chief complaint) Undifferenti ated schizophreni aGeneralized Anxiety Disorder 2 Kendrick Cabrera. [address], [place], [address], [place]. tel:[phone] Referring Provider: Deborah Marks, [address] [place], [address] . tel:[phone] [facility], [address] Ebvsi819B2 4253625AE- [place], [address], [place] tel:[phone] [facility] No Information 2 Jo Portillo. [address], [place], [address], [place]. tel:[phone] Referring Provider: Bandar Osorio, [address] [place], [address] . tel:[phone] OFFICE/OUTPA TIENT VISIT, [facility], [address] Flwah965L4 2902131YY- [place], [place], [address], [place] tel:[phone] [facility] cough (chief complaint) CoughNasal congestion with rhinorrhea 2 Jo Portillo. [address], [place], [address], [place]. tel:[phone] Referring Provider: Bandar Osorio, [address] [place], [address] . tel:[phone] PSYTX PT&/FAMILY 30 MINUTES [facility], [address] Lkbke006V2 4296406OR- [place], [place], [address], [place] tel:[phone] [facility] Schizoaffect filemon disorder, bipolar type 2 Myron Houston. [address] [facility] , [place], [place], [address], [place]. tel:[phone] Referring Provider: Celso Sanches, [address] [place], [address] . tel:[phone] OFFICE/OUTPA TIENT VISIT [facility], [address] Owxca341H5 7212578KW- [place], [address], [place] tel:[phone] Behavioral Medicine F2 Tremors (chief complaint) Schizoaffect filemon disorder, bipolar typeType 2 diabetes mellitus without complication , without long-term current use of insulinExtra pyramidal and movement disorderEsse ntial (primary) hypertension Other mcc (current) drug therapyPredi abetesTremor , unspecified Apr-0 2 Dakota Michel. [address] [place], [address], [place]. tel:[phone] Referring Provider: Anand Duncan, [address] [place], [address]. tel:[phone] OFFICE/OUTPA TIENT VISIT EST [facility], [address] Tszqa906I5 9592478NAClay [place], [place], [address], [place] tel:[phone] Behavioral Medicine F2 URI (chief complaint) Acute bronchitis due to other specified organisms Mar-3 2 Dakota Michel. [address] [place], [address], [place]. tel:[phone] Referring Provider: Anand Duncan, [address] [place], [address]. tel:[phone] [facility], [address] Bszhk504G8 8057481XHClay City, [place], [address], [place] tel:[phone] Behavioral Medicine F2 new psych (chief complaint) Schizoaffect filemon disorder, bipolar type Mar-3 2 No Information OFFICE/OUTPA TIENT VISIT EST [facility], [address] Tnhpt329Y9 8957553DXGallatin [place], [address], [place] tel:[phone] Behavioral Medicine F2 Injection (chief complaint) Schizophreni a, unspecified type Mar-2 2 Dakota Michel. [address] [place], [address], [place]. tel:[phone] Referring Provider: Anand Duncan, [address] [place], [address]. tel:[phone] PSYTX PT&/FAMILY 30 MINUTES [facility], [address] Sqiab030P8 9933791CV- [place], [place], [address], [place] tel:[phone] [facility] Schizophreni a, unspecified type 2 Lyle Blunt. [address], [place], [address], [place]. tel:[phone] Referring Provider: Merlene Alvarenga, [address] [place], [address] . tel:[phone] OFFICE/OUTPA TIENT VISIT EST [facility], [address] Hbgey265V0 1408362NAGallatin [place], [place], [address], [place] tel:[phone] [facility] cough/ congestion (chief complaint)htn (chief complaint) Acute coughNasal congestion with rhinorrheaFl uOther schizophreni aHypertensio n 2 Jo Portillo. [address], [place], [address], [place]. tel:[phone] Referring Provider: Bandar Osorio, [address] [place], [address] . tel:[phone] [facility], [address] Rpiej148D6 1071281PYClay [place], [place], [address], [place] tel:[phone] Family Medicine No Information 2 Marjorie Moreno. [address], [place], [address], [place]. tel:[phone] Referring Provider: Tiffanie Amador, [address] [place], [address] . tel:[phone] [facility], [address] Qcbvp172X7 9651428KOGallatin [place], [place], [address], [place] tel:[phone] [facility] No Information 1 Evan Roque. [address], [place], [address], [place]. tel:[phone] Referring Provider: Mya Gusman, [address] [place], [address] . tel:[phone] OFFICE/OUTPA TIENT VISIT, [facility], [address] Kddyq684T5 1540802YGClay [place], [place], [address], [place] tel:[phone] Behavioral Medicine F2 Schizophreni a, unspecified type 1 Evan Roque. [address], [place], [address], [place]. tel:[phone] Referring Provider: Mya Gusman, [address] [place], [address] . tel:[phone] OFFICE/OUTPA TIENT VISIT [facility], [address] Zqjim665G1 7919721YMClay [place], [place], [address], [place] tel:[phone] [facility] prediabetes (chief complaint)Silvia k pain (chief complaint)BPH (chief complaint) PrediabetesT ype 2 diabetes mellitus without complication , without long-term current use of insulinChron ic bilateral low back pain with right-sided sciaticaOthe r chronic painBenign prostatic hyperplasia with urinary frequency 1 Evan Roque. [address], [place], [address], [place]. tel:[phone] Referring Provider: Mya Gusman, [address] [place], [address] . tel:[phone] [facility], [address] Swnfm558B4 7734444VFClay [place], [place], [address], [place] tel:[phone] [facility] No Information 1 Bina Aponte. [address], [place], [address], [place]. tel:[phone] Referring Provider: Fadi Curran, [address] [place], [address] . tel:[phone] OFFICE/OUTPA TIENT VISIT, EST [facility], [address] Lujzv968P4 4414731XW- [facility], [place], [place], [address], [place] tel:[phone] [facility] Right upper leg pain / burning for the past (chief complaint) Right sided sciatica Feb-2 1 Jaren Larson. [address], [place], [address], [place]. tel:[phone] Referring Provider: Marsha Esatman, [address] [place], [address] . tel:[phone] [facility], [address] Oaqcl245U6 7906528EZClay [place], [place], [address], [place] tel:[phone] Behavioral Medicine F2 Schizophreni a, unspecified type Feb- 1 Evan Roque. [address], [place], [address], [place]. tel:[phone] Referring Provider: Mya Gusman, [address] [place], [address] . tel:[phone] [facility], [address] Fqkil018L8 4307498WD- [place], [address], [place] tel:[phone] Family Medicine F1 Change of job 0 1 [facility]. [address], [place], [address], [place]. tel:[phone] [facility], [address] Gcmok357M4 0914416IZ- [place], [place], [address], [place] tel:[phone] Behavioral Medicine F2 Schizophreni a, unspecified type Jan- 1 Evan Roque. [address], [place], [address], [place]. tel:[phone] Referring Provider: Mya Gusman, [address] [place], [address] . tel:[phone] OFFICE/OUTPA TIENT VISIT, [facility], [address] Jobko504O3 1674966WE- [place], [place], [address], [place] tel:[phone] [facility] Earache (chief complaint) Acute otitis externa of right ear, unspecified type 1 Evan Roque. [address], [place], [address], [place]. tel:[phone] Referring Provider: Mya Gusman, [address] [place], [address] . tel:[phone] OFFICE/OUTPA TIENT VISIT, [facility], [address] Omzbt074N8 7920762HAClay [place], [place], [address], [place] tel:[phone] [facility] Schizophreni a, unspecified type 1 Evan Roque. [address], [place], [address], [place]. tel:[phone] Referring Provider: Mya Gusman, [address] [place], [address] . tel:[phone] [facility], [address] Ljzcu080P4 2001039SMClay [place], [place], [address], [place] tel:[phone] Family Medicine F1 Cough 1 Med Crump. [address], [place], [address], [place]. tel:[phone] Referring Provider: Theron Jovel, [address] [place], [address] . tel:[phone] OFFICE/OUTPA TIENT VISIT [facility], [address] Oqwth873U0 7401774MNGallatin Gateway, [place], [address], [place] tel:[phone] [facility] Viral syndrome (chief complaint)cou gh, congestion x 1 wk (chief complaint) Contact with and (suspected) exposure to other viral communicable diseasesVira l URI 1 Med Crump. [address], [place], [address], [place]. tel:[phone] Referring Provider: Theron Jovel, [address] [place], [address] . tel:[phone] [facility], [address] Lsxlz354E0 9781151GKClay City, [place], [address], [place] tel:[phone] Family Medicine F1 Unemployment 1 [facility]. [address], [place], [address], [place]. tel:[phone] [facility], [address] Eifef846U3 1932840EVClay [place], [place], [address], [place] tel:[phone] Behavioral Medicine F2 No Information 1 Evan Roque. [address], [place], [address], [place]. tel:[phone] Referring Provider: Mya Gusman, [address] [place], [address] . tel:[phone] [facility], [address] Vtugt835K9 0372745JOClay City, [place], [address], [place] tel:[phone] [facility] behavioral health f/u (chief complaint)dep ression (chief complaint) Schizophreni a, unspecified type 1 Evan Roque. [address], [place], [address], [place]. tel:[phone] Referring Provider: Mya Gusman, [address] [place], [address] . tel:[phone] [facility], [address] Jaddp473G9 6879011QZClay City, [place], [address], [place] tel:[phone] [facility] Schizophreni a, unspecified type 1 Gordon Mya. [address], [place], [address], [place]. tel:[phone] Referring Provider: Mya Gusman, [address] [place], [address] . tel:[phone] [facility], [address] Bbndl717F6 8669504RPClay [place], [place], [address], [place] tel:[phone] [facility] Schizoaffecti ve disorder (chief complaint) Hypo-osmolal ity and hyponatremia Other termite treater helper (current) drug therapyMixed hyperlipidem iaSchizophre michaela, unspecified type 1 Evan Mya. [address], [place], [address], [place]. tel:[phone] Referring Provider: Mya Gusman, [address] [place], [address] . tel:[phone] [facility], [address] Vpftq371O5 9503234ROClay [place], [place], [address], [place] tel:[phone] [facility] Schizophreni a, unspecified type 1 Evan Roque. [address], [place], [address], [place]. tel:[phone] Referring Provider: Mya Gusman, [address] [place], [address] . tel:[phone] OFFICE/OUTPA TIENT VISIT, EST [facility], [address] Ulhpr620M2 0259950EAClay [place], [place], [address], [place] tel:[phone] [facility] knots on legs (chief complaint) Worried well 1 Evan Roque. [address], [place], [address], [place]. tel:[phone] Referring Provider: Mya Gusman, [address] [facility], [place], [address] . tel:[phone] [facility], [address] Jracw151L3 5430828OQ- [facility], [place], [place], [address], [place] tel:[phone] [facility] Schizophreni a, unspecified type Apr-2 1 Evan Mya. [address], [place], [address], [place]. tel:[phone] Referring Provider: Mya Gusman, [address] [facility], [place], [address] . tel:[phone] [facility], [address] Dhkqx974G5 7975627OF- [place], [address], [place] tel:[phone] [facility] Schizophrenia (chief complaint) Schizophreni a, unspecified type Mar-2 1 Evan Mya. [address], [place], [address], [place]. tel:[phone] Referring Provider: Mya Gusman, [address] [place], [address] . tel:[phone] OFFICE/OUTPA TIENT VISIT, [facility], [address] Tpcku203B2 0232867VK- [facility], [place], [place], [address], [place] tel:[phone] [facility] Dizziness (chief complaint) Dizzy Mar-0 1 Evan Mya. [address], [place], [address], [place]. tel:[phone] Referring Provider: Mya Gusman, [address] [place], [address] . tel:[phone] [facility], [address] Tkuer364G6 0635203KMHar[facility], [place], [place], [address], [place] tel:[phone] [facility] Schizophreni a, unspecified type Mar-0 1 Gordon Mya. [address], [place], [address], [place]. tel:[phone] Referring Provider: Mya Gusman, [address] [place], [address] . tel:[phone] [facility], [address] Ojgig041P8 5225205SGGallatin [place], [place], [address], [place] tel:[phone] [facility] Schizophreni a, unspecified type 1 Gordon Mya. [address], [place], [address], [place]. tel:[phone] Referring Provider: Mya Gusman, [address] [place], [address] . tel:[phone] [facility], [address] Nupyx699R5 0248208SZClay City, [place], [address], [place] tel:[phone] Family Medicine F1 Schizophreni a, unspecified type 0 Gordon Mya. [address], [place], [address], [place]. tel:[phone] Referring Provider: Mya Gusman, [address] [place], [address] . tel:[phone] [facility], [address] Olglp931Y8 3820109BIClay City, [place], [address], [place] tel:[phone] Behavioral Medicine F2 No Information 0 Gordon Mya. [address], [place], [address], [place]. tel:[phone] Referring Provider: Mya Gusman, [address] [place], [address] . tel:[phone] OFFICE/OUTPA TIENT VISIT, EST [facility], [address] Bucop857P8 3630550NT- [place], [place], [address], [place] tel:[phone] [facility] Referral for urologist (chief complaint)bed bugs (chief complaint)Blo od in stool (chief complaint) Urinary frequencyBlo od in stoolInfesta tion by bed bugOther mcc (current) drug therapyPredi abetesBenign prostatic hyperplasia with urinary frequencyOth er microscopic hematuria Apr-0 7-202 0 Evan Roque. [address], [place], [address], [place]. tel:[phone] Referring Provider: Mya Gusman, [address] [place], [address] . tel:[phone] [facility], [address] Xbpnt901L8 3694701LUClay [place], [place], [address], [place] tel:[phone] [facility] Schizophreni a, unspecified type 0 0 Evan Roque. [address], [place], [address], [place]. tel:[phone] Referring Provider: Mya Gusman, [address] [place], [address] . tel:[phone] OFFICE/OUTPA TIENT VISIT EST [facility], [address] Pvjft490C9 1976433UZ- [place], [place], [address], [place] tel:[phone] [facility] Rash (chief complaint) Rash and other nonspecific skin eruption Mar-0 2202 0 Bina Aponte. [address], [place], [address], [place]. tel:[phone] Referring Provider: Fadi Curran, [address] [place], [address] . tel:[phone] [facility], [address] Bmsrd767Y7 3796218FJGallatin [place], [place], [address], [place] tel:[phone] [facility] Schizophreni a, unspecified type Feb 0 Gordon Mya. [address], [place], [address], [place]. tel:[phone] Referring Provider: Mya Gusman, [address] [place], [address] . tel:[phone] [facility], [address] Zeejt[address]D1 9404444RC- [place], [address], [place] tel:[phone] [facility] Schizophreni a, unspecified type Sep-3 0 Gordon Mya. [address], [place], [address], [place]. tel:[phone] Referring Provider: Mya Gusman, [address] [place], [address] . tel:[phone] [facility], [address] Actwm123N9 3052400HJClay [place], [place], [address], [place] tel:[phone] [facility] Schizophrenia (chief complaint) Schizophreni a, unspecified typeGenerali zed Anxiety Disorder 0 Gordon Mya. [address], [place], [address], [place]. tel:[phone] Referring Provider: Mya Gusman, [address] [place], [address] . tel:[phone] [facility], [address] Didwr498I1 8633323GM- [place], [address], [place] tel:[phone] [facility] Generalized Anxiety Disorder Nov- 0 Evan Mya. [address], [place], [address], [place]. tel:[phone] Referring Provider: Mya Gusman, [address] [place], [address] . tel:[phone] [facility], [address] Nbpvy102R2 8897853FLClay [place], [place], [address], [place] tel:[phone] Family Medicine F1 Schizophreni a, unspecified type 0 Gordon Mya. [address], [place], [address], [place]. tel:[phone] Referring Provider: Mya Gusman, [address] [place], [address] . tel:[phone] [facility], [address]zpjn740D6 7682360PVClay [place], [place], [address], [place] tel:[phone] Family Medicine F2 schizophrenia (chief complaint) Schizophreni a, unspecified typeGenerali zed Anxiety Disorder 0 Gordon Mya. [address], [place], [address], [place]. tel:[phone] Referring Provider: Mya Gusman, [address] [place], [address] . tel:[phone] [facility], [address] Twvsl982Y0 9972175ATGallatin [place], [address], [place] tel:[phone] Family Medicine F1 hypertension (chief complaint) No Information 0 Gordon Mya. [address], [place], [address], [place]. tel:[phone] Referring Provider: Mya Gusman, [address] [place], [address] . tel:[phone] [facility], [address] Dorpr218I3 5319791YUGallatin [place], [place], [address], [place] tel:[phone] Family Medicine F1 Schizophrenia (chief complaint) Schizophreni a, unspecified typeFrequenc y of micturition 0 Gordon Mya. [address], [place], [address], [place]. tel:[phone] Referring Provider: Mya Gusman, [address] [place], [address] . tel:[phone] OFFICE/OUTPA TIENT VISIT, EST [facility], [address] Reijs324Z5 1824290IC- [place], [address], [place] tel:[phone] Family Medicine F1 Blood in urine (chief complaint) Frequency of micturition Aug-2 0 Evan Roque. [address], [place], [address], [place]. tel:[phone] Referring Provider: Mya Gordon R, [address] [place], [address] . tel:[phone] [facility], [address] Tocuk504I9 4646002UBClay [place], [place], [address], [place] tel:[phone] Family Medicine F1 Hematuria, unspecified 0 Cale Hernandez. [address], [place], [address], [place]. tel:[phone] Referring Provider: David Flores, [address] [place], [address] . tel:[phone] [facility], [address] Uwdue631N8 9709268ZIClay [place], [address], [place] tel:[phone] Behavioral Medicine F2 No Information 0 No Information OFFICE/OUTPA TIENT VISIT EST [facility], [address] Alvzl535N3 0548993EYClay [place], [place], [address], [place] tel:[phone] Behavioral Medicine F2 Follow Up of Mood [...] therapy Jul-3 0 Aquilino Potter. [address], [place], [address], [place]. tel:[phone] Referring Provider: Abbey Rolle, [address] [place], [address] . tel:[phone] [facility], [address] Gdamf035I5 6047038BRClay [place], [place], [address], [place] tel:[phone] Behavioral Medicine F2 Mixed hyperlipidem iaEssential (primary) hypertension Other mcc (current) drug therapy Jul-2 0 No Information OFFICE/OUTPA TIENT VISIT, EST [facility], [address] Vmbef390M0 4139210TGClay [place], [place], [address], [place] tel:[phone] Behavioral Medicine F2 Schizophrenia (chief complaint)MAIDA (chief complaint)med ication management (chief complaint) Schizophreni a, unspecified type Jul-2 0 No Information [facility], [address] Udspg632Q0 0549986CIFayetteville, [place], [address], [place] tel:[phone] [facility] Schizophreni a, unspecified type Jul-0 0 Evan Roque. [address], [place], [address], [place]. tel:[phone] Referring Provider: Mya Gusman, [address] [place], [address] . tel:[phone] [facility], [address] Emyje177B7 2374780DVClay [place], [place], [address], [place] tel:[phone] [facility] Schizophreni a, unspecified type Fe- 0 Evan Roque. [address], [place], [address], [place]. tel:[phone] Referring Provider: Mya Gusman, [address] [place], [address] . tel:[phone] [facility], [address] Gnuws365L9 9573423KI- [facility], [place], [place], [address], [place] tel:[phone] [facility] No Information 0 Evan Roque. [address], [place], [address], [place]. tel:[phone] Referring Provider: Mya Gusman, [address] [place], [address] . tel:[phone] OFFICE/OUTPA TIENT VISIT, [facility], [address] Bvwrg718I4 3331856PLGallatin [place], [address], [place] tel:[phone] [facility] Shortness of breath (chief complaint) COPD 0 Evan Roque. [address], [place], [address], [place]. tel:[phone] Referring Provider: Mya Gusman, [address] [place], [address] . tel:[phone] [facility], [address] Rlpzv482U5 2265302QYGallatin [place], [address], [place] tel:[phone] [facility] No Information 0 Evan Roque. [address], [place], [address], [place]. tel:[phone] Referring Provider: Mya Gusman, [address] [place], [address] . tel:[phone] [facility], [address] Gllop304U4 9215739BVGallatin [place], [address], [place] tel:[phone] [facility] Follow Up of Schizophrenia (chief complaint) Schizophreni a, unspecified typeGenerali zed Anxiety Disorder May-0 9-202 0 Gordon Mya. [address], [place], [address], [place]. tel:[phone] Referring Provider: Mya Gusman, [address] [place], [address] . tel:[phone] [facility], [address] Ztulg580E4 7151145VLClay City, [place], [address], [place] tel:[phone] [facility] Schizophreni a, unspecified type 0 2-202 0 Gordon Mya. [address], [place], [address], [place]. tel:[phone] Referring Provider: Mya Gusman, [address] [place], [address] . tel:[phone] [facility], [address] Vivei261R6 0971527SLClay [place], [place], [address], [place] tel:[phone] [facility] Mental [facility] (chief complaint) Other mcc (current) drug therapySchiz ophrenia, unspecified typeGenerali zed Anxiety Disorder Apr-0 201 9 Gordon Mya. [address], [place], [address], [place]. tel:[phone] Referring Provider: Mya Gusman, [address] [place], [address] . tel:[phone] [facility], [address] Pmeho553A2 8298205BQClay City, [place], [address], [place] tel:[phone] [facility] Schizophreni a, unspecified type 0 9 Gordon Mya. [address], [place], [address], [place]. tel:[phone] Referring Provider: Mya Gusman, [address] [place], [address] . tel:[phone] OFFICE/OUTPA TIENT VISIT [facility], [address] Vsicb488J4 0720851TVGallatin [place], [address], [place] tel:[phone] [facility] Est. Care (chief complaint)Mus culoskeletal pain (chief complaint)Tamela rrhea (chief complaint) Diarrhea, unspecified typeSciatica of left sideSchizoph herb, unspecified typeOther mcc (current) drug therapy 9 Evan Roque. [address], [place], [address], [place]. tel:[phone] Referring Provider: Mya Gusman, [address] [place], [address] . tel:[phone] OFFICE/OUTPA TIENT VISIT, [facility], [address] Zbcmq114Y7 1812520HPClay City, [place], [address], [place] tel:[phone] Family Medicine F1 Body aches, nausea, (chief complaint) Viral syndrome 9 No Information OFFICE/OUTPA TIENT VISIT, [facility], [address] Wxqjz068N3 3975512VCClay [place], [place], [address], [place] tel:[phone] Family Medicine F1 Hospital F/U (chief complaint) Hospital discharge follow-up 9 No Information [facility], [address] Seaye568V2 9142070QKClay City, [place], [address], [place] tel:[phone] Family Medicine F1 Generalized Anxiety Disorder 9 No Information OFFICE/OUTPA TIENT VISIT, [facility], [address] Geqaa893N8 3099876LWClay [place], [place], [address], [place] tel:[phone] Family Medicine F1 Exam diarrhea (chief complaint) Diarrhea, unspecified type 9 Bina Aponte. [address], [place], [address], [place]. tel:[phone] Referring Provider: Fadi Curran, [address] [place], [address] . tel:[phone] OFFICE/OUTPA TIENT VISIT, [facility], [address] Mzgma185E5 4525365RNClay [place], [place], [address], [place] tel:[phone] Family Medicine F1 Diarrhea (chief complaint) Diarrhea, unspecified type Feb-0 7 9 No Information [facility], [address] Wdrhm985N8 4978616GCClay [place], [place], [address], [place] tel:[phone] Family Medicine F1 No Information Feb-0 9 No Information [facility], [address] Zcxdl248R3 1817075QEClay City, [place], [address], [place] tel:[phone] Family Medicine F1 No Information Feb-0 9 Jose D Armstrong. [address], [place], [address], [place]. tel:[phone] Referring Provider: Nathaniel Jeffery, [address] [place], [address] . tel:[phone] OFFICE/OUTPA TIENT VISIT, [facility], [address] Kctgo701I7 5368662MHClay City, [place], [address], [place] tel:[phone] Family Medicine F1 Diarrhea (chief complaint) Diarrhea, unspecified typeTremors of nervous system Sep-3 0 9 No Information OFFICE/OUTPA TIENT VISIT, [facility], [address] Kkync229C0 4830381ZCClay City, [place], [address], [place] tel:[phone] Family Medicine F1 Hospital F/U (chief complaint) Homelessness Hospital discharge follow-up Jan- 9 No Information OFFICE/OUTPA TIENT VISIT, [facility], [address] Yicnl762Z6 8938089TG- [facility], [place], [place], [address], [place] tel:[phone] Family Medicine F1 Invega Injection (chief complaint) Schizophreni a, unspecified type No Information OFFICE/OUTPA TIENT VISIT, [facility], [address] Htrrz346C8 8908174RXHar[facility], [place], [place], [address], [place] tel:[phone] Family Medicine F1 Medication Management (chief complaint)Nee ds Note (chief complaint) Generalized Anxiety DisorderHype rtensionUrin hanane frequencyMix ed hyperlipidem ia No Information [facility], [address] Lulwl910T9 0038745PKHarper [facility], [place], [place], [address], [place] tel:[phone] Family Medicine F1 Pain in left foot 9 Suzanne Rodriguez. [address], [place], [address], [place]. [phone] Referring Provider: Michael Palacios, [address] [place], [address] . tel:[phone] [facility], [address] Abeij218E2 5574990YYAtchison Hospital, [place], [place], [address], [place] tel:[phone] Family Medicine F1 No Information 9 No Information OFFICE/OUTPA TIENT VISIT, [facility], [address] Vtfin618R5 0871425GJClay City, [place], [address], [place] tel:[phone] Family Medicine F1 Left foot pain (chief complaint) Left foot painHomeless ness 9 No Information [facility], [address] Zemrz579U4 0873371QKGallatin [place], [place], [address], [place] tel:[phone] Family Medicine F1 Homelessness 9 [facility]. [address], [place], [address], [place]. tel:[phone] Referring Provider: [facility], [address] [place], [address] . tel:[phone] OFFICE/OUTPA TIENT VISIT, EST [facility], [address] Rghvw334D7 4361402DT- [place], [place], [address], [place] tel:[phone] Family Medicine Establish Care (chief complaint)walt elessness (chief complaint) Generalized Anxiety DisorderHype rtensionMixe d hyperlipidem iaHomelessne ss No Information [facility], [address] Qpxkb804Z1 6994471PWGallatin [place], [place], [address], [place] tel:[phone] Family Medicine Homelessness 9 [facility]. [address], [place], [address], [place]. [phone] Referring Provider: [facility], [address] [place], [address] . tel:[phone] [facility], [address] Xhmip959L7 2706649DF- [place], [place], [address], [place] tel:[phone] [facility] Integration Other specified counseling No Information [facility], [address] Facws471E3 6162016UL- [place], [place], [address], [place] tel:[phone] [facility] No Information 9 Dakota Michel. [address] [place], [address], [place]. tel:[phone] Referring Provider: Anand Duncan, [address] [place], [address]. tel:[phone] [facility], [address] Mbjar437P1 8193409GF- [facility], [place], [place], [address], [place] tel:[phone] [facility] No Information 9 Dakota Michel. [address] [place], [address], [place]. tel:[phone] Referring Provider: Anand Duncan, [address] [place], [address]. tel:[phone] [facility], [address] Npnzg028L5 3515761BCGallatin [place], [address], [place] tel:[phone] [facility] No Information 8 Dakota Michel. [address] [place], [address], [place]. tel:[phone] Referring Provider: Anand Duncan, [address] [place], [address]. tel:[phone] OFFICE/OUTPA TIENT VISIT, [facility], [address] Nuqsq923L2 5705233YLGallatin [place], [address], [place] tel:[phone] [facility] Est. Care (chief complaint)Chr onic conditions (chief complaint) Hypertension Mixed hyperlipidem iaGeneralize d Anxiety DisorderHypo natremiaUrin hanane frequency 8 Dakota Michel. [address] [place], [address], [place]. tel:[phone] Referring Provider: Anand Duncan, [address] [place], [address]. tel:[phone] [facility], [address] Blcmz193A4 6428791EAGallatin Gateway, [place], [address], [place] tel:[phone] [facility] No Information 3201 8 Dakota Michel. [address] [place], [address], [place]. tel:[phone] Family History Family Member Type Diagnosis Age At Onset No Information Immunizations Vaccine Date Status Comments Tdap (7 yrs and older) administered Note: VIS: 12/17/20 Patient had no reaction while in clinic. kw ; Source: New Immunization Record Flu Vaccine 6 Months and older administered Source: Public Agenc y Flu Vaccine 6 Months and older administered Note: [facility] ; Source: Source Unspecified Payers Payer name Insurance type Covered green party ID Authorizbayron quiñones(s) M [facility] Dual Com plete Medica CI [id number] M [place] Medicaid MC [id number] [facility] Dual Com plete Medica [place] [id number] M [place] Medicaid MC [id number] Social History Type Description Quantity Date Captured [...] Consult ordered Referral Ordered: Referrals: Urology. Location: [facility]. Assume care ordered Referral Ordered: Referrals: physcial therapy. Location: [facility]. Evaluate and treat ordered Referral Ordered: AARP (related to Unemployment) ordered Referral Ordered: Referrals: Location: [facility] (related to Unemployment) ordered Referral Ordered: Referrals: Urology. Location: [facility]. Evaluate and treat ordered Referral Ordered: Referrals: Urology ordered Referral Ordered: Referrals: neurologist ordered Referral Ordered: Referrals: [place] ordered Referral Ordered: Referrals: Location: [facility] ordered Referral Ordered: Referrals: Urology. Consult ordered Patient Education Sciatica: Exercises com pleted Patient Education Sciatica: Care Instruct ions completed Patient Education Sciatica: Exercises com pleted Patient Education Low Back Pain: Exercise s completed Future Order: Lab Order [id number] linic/POC ([id number]), Appointment on: , Sent on: Sent Future Order: Lab Order COVID-19 PCR-JV ([id number]), Sent on: Sent Future Order: Radiology Order Ch est 2 Views ([id number]), Ordered on: Ordered History Of Present Illness Encounter Date Complaint History Of Prese nt Illness Medication Management Telephone appointment today.Robert reports he has moved to [place] and is needing his injection sent to the Pharmacy in [place] to make sure he does not miss a dosage. He states he relocated there with his brother.He states he could not take it anymore in [place], and needed to get out of town.He denies SI/HI/AH/VH.He has no complaints or concerns at this time.Plans on establishing care in [place] for Psychiatric Care. Schizoaffective disorder This is [...] denies any associated symptoms. Generalized Anxiety Disorder [facility] care Patient here todaniel rodriguez to establish careH: Parkinson's diseaseMedications: reviewed Allergies: reviewed Social history: homeless Patient has issues with prediabetes, hyperlipemia, schizophrenia, BPHVocation: He is caodaism, he is currently homeless Social Support: He has a sister in [place]. 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 Patient is stimulated with Manic laugh. [...] He would like to see urology at [facility] for his bladder and BPH- no other [...] with a friend. [facility] and encouraged to follow up with PCP. When discussing appointment with patient today, he states everything is fine. He denies SI/HI/AH/VH. He feels his tremors have decreased with cogentin. He is slightly dishevel in appearance. He has a laundry bag with him today, and states he is going to go to the machine edge bander after this appointment. He is alert and [...] Tele-Session don e due to contract with [facility] to provide off-site services; Verbal consent from Patient received; All Medications to be e-scribed through [facility]EXT [facility] -Chief Complaint / Establish care - ADMITTED TO [facility] FOR 10 DAYS IN JULY 2021 FOR REPORTING SUICIDAL THOUGHTS -PERRECORD - HAS HISTORY OF VERBAL AND PHYSICAL AGGRESSION - INNAPPROPRIATE SEXUAL BEHAVIORS - MANIC AND POSSIBLE MANIPULATIVE BEHAVIORS AND NON COMPLIANCE TO TREATMENT - HOMELESS -WITH POOR INSIGHT - [facility] - DISCHARGED ON INVEGA SUSTENNA 156MG IM [...] of Delusion:-YES- Past/ I GET SPIRITS- HYPER YARSANISM THOUGHTS - AND PARANOIA Reports Hx of [...] Alcohol- ; DENIED SOCIAL HISTORYLiving Situation -[facility] Martial Situation-; Children - NONE Highest Education- 6TH GRADE Occupation/Work History- Disabled; 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 Has a hx of hematuria. Has [...] he is seeing a urologist-Dr. Campuzano at [facility]. Pt reports that he would like to change clinics. He has surgery for his bladder in December and is wanting to see a different provider and would like to go to [facility]. Blood in stool Pertinent negati ves include abdominal distention, abdominal pain, bloating, change in bowel habits, constipation, decreased appetite, diarrhea, dysphagia, heartburn, nausea, perirectal itching, rectal pain, rectal pain associated with bleeding, vomiting and weight loss. Additional information: Pt had colonoscopy at [facility] last year. Has had this off [...] of Flomax and refer for Urologist at [facility] at this time. WBC is [...] medication. No SI or HI. 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 Shortness of breath In the inter [...] behaviors were discussed; illegal drugs, prescription drugs, vxiy-hdp-ytihirz drugs, gambling, alcohol, tobacco and vaping.Reports alcoholism, [...] of the time. HTNBPHHyperlipidemiaSocial History:[facility] Social Supports were discussed; latter-day, family/friendships, therapy, and cultural/ethnic/community supports. I believe in GodPatient reports having support from God, ERROL-Cr, familySexual Orientation: born male, ID male, heterosexualMarital Status: girlfriendNumber of times /: 1/0/is . Children: noneMilitary Service: deniesLegal Information (guardian, probation, parole):Reports hx of incarcerationHas current charge for trespassing at [facility] History:Denies inutero exposure to drugs/alcoholMet [...] Care PHQ 0.Seeing a n eurologist at [facility]-for parkinsons dslast colonoscopy was 5 years [...] diarrhea today. 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 Pt requesting OTC medications prescribed. Diarrhea [...] note stati james he was here for Nerdies. Left foot pain Location: left f oot. Establish Care Pt needing to es tablish care. homelessness Pt needing help getting medications cannot afford. Est. Care The symptoms are reported as being moderate. The symptoms occur daily. He states the symptoms are chronic. Benedicto Amaral is a 58 year old male that is a Resident at [facility]. He has been there for a [...] cations without change. E-scribed Invega Injection to [facility]. 2. Will be seen again if [...] to the clinic in 3 months for E9hXgwnflyf good foot hygiene, wear closed toed shoes. 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 Appointment made with [facility]. Related to Other schizophrenia Positive for [...] wishes to have this completed at the [place] location due to nurse preference. I offered [...] and recommendations for f/u. 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 Reviewed methods to eradicate in apartment, pastry mixer is scheduled for tomorrow. Pt is aware [...] f/u.Pt requests to move urology services to [facility]. ROR for Dr. Ortega's office to [...] Referral for assiste d living per nurse home health care worker. Related to Homelessness Xray left foot today [...] call 911 or [facility]6 [facility] [...]
[2024-08-12 08:41] VITALS: BP 143/101; BMI 36.0
--- NOTE | 2024-11-27 20:53 | XRR_ITS ---
PROCEDURE INFORMATION: Exam: XR Chest Exam date and time: 11/27/2024 9:10 PM Age: 64 years old Clinical indication: Shortness of breath TECHNIQUE: Imaging protocol: Radiologic exam of the chest. Views: 1 view. COMPARISON: CR (CHEST, ) 11/20/2024 2:54 AM FINDINGS: Lungs: Unremarkable. No consolidation. Pleural spaces: Unremarkable. No pleural effusion. No pneumothorax. Heart/Mediastinum: Unremarkable. No cardiomegaly. Bones/joints: Unremarkable. XR/XR chest 1V portable [id number] IMPRESSION: No acute findings.
[2024-11-27 21:00] VITALS: BP 160/88; PULSE 97; RESP 20; TEMP 37.1; O2SAT 96; BMI 27.8
--- NOTE | 2024-11-27 21:12 | ECG_ITS ---
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 Measurements Intervals [place] Rate: 98 P: 60 MA: 169 QRS: -4 QRSD: 82 T: 45 QT: 345 QTc: 441 Interpretive Statements SINUS RHYTHM MODERATE VOLTAGE CRITERIA FOR LVH, CONSIDER NORMAL VARIANT [MEETS CRITERIA IN ONE OF: R(aVL), S(V1), R(V5), R(V5/V6)+S(V1)] Compared to ECG 11/20/2024 02:51:13 Ventricular premature complex(es) no longer present Electronically Signed On 11-29-2024 14:11:32 CDT by Yusra White M.D. [id number]
--- NOTE | 2024-11-27 21:13 | W.ED.SOB ---
Documented by User: Rosalba Carroll MD 11/27/24 21:17 HPI - SOB/Dyspnea General: Chief Complaint: Shortness of Breath/Dyspnea Stated Complaint: Resp Dist Time Seen by Provider: 11/27/24 20:51 History of Present Illness: HPI Narrative: 64-year-old male with a history of schizoaffective disorder, Parkinson's disease hypertension, hyperlipidemia and report of possible Lewy body dementia. He is complaining of shortness of breath today. Later he tells nursing that he wants to be placed in a shelter. He is a very difficult historian. Related Data Home Medications ?Medication ?Instructions ?Recorded ?Confirmed simvastatin 40 mg tablet 40 mg PO BEDTIME 02/19/24 11/15/24 cetirizine 10 mg tablet 10 mg PO DAILY 05/05/24 11/15/24 losartan 25 mg tablet 25 mg PO DAILY 10/29/24 11/15/24 paliperidone palmitate 234 mg/1.5 234 mg IM Q30D 10/29/24 11/15/24 mL [facility]uscular [facility] sodium chloride 1,000 mg soluble 1,000 mg PO BID 11/06/24 11/15/24 tablet gabapentin 100 mg capsule 100 mg PO BID 11/15/24 11/15/24 Previous Rx's ?Medication ?Instructions ?Recorded metformin 500 mg tablet 500 mg PO BIDWM 30 days #60 tabs 09/22/24 metoprolol tartrate 25 mg tablet 25 mg PO BID 30 days #60 tabs 09/22/24 divalproex 500 mg tablet,extended 500 mg PO BID #60 tabs 11/05/24 release 24 hr (Depakote ER) Allergies Allergy/AdvReac Type Severity Reaction Status Date / Time lithium Allergy ADR-Nausea Verified 11/09/24 11:40 oxycodone (From OxyContin) Allergy nausea Verified 11/09/24 11:40 Penicillins Allergy ALGY-Difficulty Verified 11/09/24 11:40 Breathing Review of Systems Narrative: Constitutional symptoms: Negative except as documented in HPI. Skin symptoms: Negative except as documented in HPI. Eye symptoms: Negative except as documented in HPI. ENMT symptoms: Negative except as documented in HPI. Respiratory symptoms: Negative except as documented in HPI. Cardiovascular symptoms: Negative except as documented in HPI. Gastrointestinal symptoms: Negative except as documented in HPI. Genitourinary symptoms: Negative except as documented in HPI. Musculoskeletal symptoms: Negative except as documented in HPI. Neurologic symptoms: Negative except as documented in HPI. Psychiatric symptoms: Negative except as documented in HPI. Endocrine symptoms: Negative except as documented in HPI. PFS ED PFSH: Medical History (Updated 11/27/24 @ 22:05 by Sonny Cárdenas MD) Cellulitis and abscess of left leg Chronic hyponatremia Schizoaffective disorder, bipolar type Seasonal allergies History of Parkinson's disease Hyperlipidemia Hypertension Psychiatric care Family History Father Cancer stomach Mother Cancer ovarian Social History Smoking and tobacco/nicotine status: former use of tobacco/nicotine Quit status (tobacco/nicotine): has quit using Year quit tobacco: Roughly 2014 Alcohol intake: current Alcohol intake frequency: holidays/special occasions only Substance/Drug Use: former Additional social history: Patient states he lives alone he would like full CODE STATUS as discussed 11/06/2024. He states that also if he saw [facility] he would want to go forward to [facility] Adopted: No Caregiver/support person: No Lives independently: Yes Household members: none Housing: Apartment Marital status: / Number of children: 1 Number of grandchildren: 2 Highest education level completed: 8th Grade Current occupational status: unemployed Pets and animals: No Leisure activites: exercise and clubs Sexually active: No Do you think of yourself as: Straight/Heterosexual Current gender identity: Male Janelle/Restoration: Mu-Ism Special janelle needs: No Agree to transfusion: Yes Physical Exam Narrative: EXAM NARRATIVE: General: Alert, no acute distress. Skin: Warm, dry. Head: Normocephalic, atraumatic. Neck: Supple, trachea midline. Eye: Extraocular movements are intact. Ears, nose, mouth and throat: mucosa moist. Cardiovascular: Regular, Normal peripheral perfusion. Respiratory: Lungs are clear to auscultation, respirations are non-labored, breath sounds are equal, Symmetrical chest wall expansion. Gastrointestinal: Soft, Nontender, Non distended Musculoskeletal: Normal ROM, no deformity. Neurological: Alert and oriented, No focal neurological deficit observed. Psychiatric: Odd affect, screams frequently Course Vital Signs: Vital signs: Vital Signs Temperature 98.7 F 11/27/24 21:00 Pulse Rate 97 11/27/24 21:00 Respiratory Rate 20 H 11/27/24 21:00 Blood Pressure 160/88 11/27/24 21:00 Pulse Oximetry 96 11/27/24 21:00 MDM - SOB/Dyspnea Medical Decision Making Differential diagnosis for patient with shortness of breath includes but is not limited to and based on the above HPI, review of systems and physical exam: Pneumonia. Bronchitis. Asthma or COPD with acute exacerbation. Acute coronary syndrome / OR. Pulmonary embolism. Anxiety. Congestive heart failure. Viral infections including influenza and Covid-19. Atrial fibrillation. Anxiety. Pleural effusion. Pneumothorax. Orders placed to evaluate differential diagnosis based on the above differential, HPI and physical exam I have also added in lab work and an EKG for medical clearance. I am not sure that he qualifies for a shelter and I am not sure that that is appropriate for the emergency room tonight at 9 PM. Patient care transitioned to Dr. Cárdenas at shift change. Awaiting workup for shortness of breath and medical clearance. Lab Data Labs/Radiology: Laboratory Results Urine Color Yellow (Yellow) 11/27/24 21:18 Urine Appearance Clear (CLEAR) 11/27/24 21:18 Urine pH 7.5 (5-7) 11/27/24 21:18 Ur Specific [place] 1.008 (1.005-1.030) 11/27/24 21:18 Urine Protein Negative (Negative) 11/27/24 21:18 Urine Glucose (UA) Negative (Normal) 11/27/24 21:18 Urine Ketones Negative (Negative) 11/27/24 21:18 Urine Blood Negative (Negative) 11/27/24 21:18 Urine Nitrate Negative (Negative) 11/27/24 21:18 Urine Bilirubin Negative (Negative) 11/27/24 21:18 Urine Urobilinogen 1.0 mg/dL (Negative) 11/27/24 21:18 Ur Leukocyte Esterase Negative (Negative) 11/27/24 21:18 Urine RBC 0-2 /hpf (0-2) 11/27/24 21:18 Urine WBC 0-5 /hpf (0-5) 11/27/24 21:18 Ur Squamous Epith Cells 0-5 /hpf (0-5) 11/27/24 21:18 Amorphous Sediment Not Reportable 11/27/24 21:18 Urine Bacteria None seen /hpf (NONE) 11/27/24 21:18 Hyaline Casts 0-4 /lpf H 11/27/24 21:18 Urine Opiates Screen Negative ng/mL (Negative) 11/27/24 21:18 Ur Barbiturates Screen Negative ng/mL (Negative) 11/27/24 21:18 Ur Phencyclidine Scrn Negative ng/mL (Negative) 11/27/24 21:18 Ur Amphetamines Screen Negative ng/mL (Negative) 11/27/24 21:18 U Benzodiazepines Scrn Negative ng/mL (Negative) 11/27/24 21:18 Urine Cocaine Screen Negative ng/mL (Negative) 11/27/24 21:18 U Marijuana (THC) Screen Negative ng/mL (Negative) 11/27/24 21:18 Discharge Plan Discharge Patient Disposition: Home Clinical Impression: Suspected condition not found, At risk for dissatisfaction with healthcare Condition: Stable Prescriptions: No Action simvastatin 40 mg tablet 40 mg PO BEDTIME Invega Sustenna 234 mg/1.5 mL syringe 234 mg IM Q30D Rx Instructions: Injection every 28 days Received at [facility] today, 10/29/24 divalproex [Depakote ER] 500 mg tablet extended release 24 hr 500 mg PO BID Qty: 60 3RF losartan 25 mg tablet 25 mg PO DAILY cetirizine 10 mg tablet 10 mg PO DAILY metformin 500 mg Tablet 500 mg PO BIDWM 30 Days Qty: 60 1RF metoprolol tartrate 25 mg tablet 25 mg PO BID 30 Days Qty: 60 1RF sodium chloride 1,000 mg tablet,soluble 1,000 mg PO BID gabapentin 100 mg capsule 100 mg PO BID Discharge Orders: Discharge ED (Routine); Ordered 11/27/24 Ordered By: Sonny Cárdenas Referrals: Shemar Arcos MD [Primary Care Provider, Family Practice] Discharge Diet: Usual diet Discharge Activity: Increase activity as tolerated Patient Instructions: Patient Portal & [place] Instructions Activity Restrictions/Additional Instructions: Your vital signs are stable and your chest x-ray is clear. Print Language: Azerbaijani Sign Out Sign Out Data: Patient Sign Out occurred on 11/27/24 at 22:02. Patient's care was discussed, and care was transferred from Rosalba Carroll MD to oSnny Cárdenas MD. 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 Documented by User: Sonny Cárdenas MD 11/27/24 22:12 HPI - SOB/Dyspnea General: Chief Complaint: Shortness of Breath/Dyspnea Stated Complaint: Resp Dist Time Seen by Provider: 11/27/24 20:51 Related Data Home Medications ?Medication ?Instructions ?Recorded ?Confirmed simvastatin 40 mg tablet 40 mg PO BEDTIME 02/19/24 11/15/24 cetirizine 10 mg tablet 10 mg PO DAILY 05/05/24 11/15/24 losartan 25 mg tablet 25 mg PO DAILY 10/29/24 11/15/24 paliperidone palmitate 234 mg/1.5 234 mg IM Q30D 10/29/24 11/15/24 mL [facility]uscular [facility] sodium chloride 1,000 mg soluble 1,000 mg PO BID 11/06/24 11/15/24 tablet gabapentin 100 mg capsule 100 mg PO BID 11/15/24 11/15/24 Previous Rx's ?Medication ?Instructions ?Recorded metformin 500 mg tablet 500 mg PO BIDWM 30 days #60 tabs 09/22/24 metoprolol tartrate 25 mg tablet 25 mg PO BID 30 days #60 tabs 09/22/24 divalproex 500 mg tablet,extended 500 mg PO BID #60 tabs 11/05/24 release 24 hr (Depakote ER) Allergies Allergy/AdvReac Type Severity Reaction Status Date / Time lithium Allergy ADR-Nausea Verified 11/09/24 11:40 oxycodone (From OxyContin) Allergy nausea Verified 11/09/24 11:40 Penicillins Allergy ALGY-Difficulty Verified 11/09/24 11:40 Breathing PFSH ED PFSH: Medical History (Updated 11/27/24 @ 22:05 by Sonny Cárdenas MD) Cellulitis and abscess of left leg Chronic hyponatremia Schizoaffective disorder, bipolar type Seasonal allergies History of Parkinson's disease Hyperlipidemia Hypertension Psychiatric care Family History Father Cancer stomach Mother Cancer ovarian Social History Smoking and tobacco/nicotine status: former use of tobacco/nicotine Quit status (tobacco/nicotine): has quit using Year quit tobacco: Roughly 2014 Alcohol intake: current Alcohol intake frequency: holidays/special occasions only Substance/Drug Use: former Additional social history: Patient states he lives alone he would like full CODE STATUS as discussed 11/06/2024. He states that also if he saw [facility] he would want to go forward to [facility] Adopted: No Caregiver/support person: No Lives independently: Yes Household members: none Housing: Apartment Marital status: / Number of children: 1 Number of grandchildren: 2 Highest education level completed: 8th Grade Current occupational status: unemployed Pets and animals: No Leisure activites: exercise and clubs Sexually active: No Do you think of yourself as: Straight/Heterosexual Current gender identity: Male Janelle/Restoration: Mu-Ism Special janelle needs: No Agree to transfusion: Yes Course Vital Signs: Vital signs: Vital Signs Temperature 98.7 F 11/27/24 21:00 Pulse Rate 97 11/27/24 21:00 Respiratory Rate 20 H 11/27/24 21:00 Blood Pressure 160/88 11/27/24 21:00 Pulse Oximetry 96 11/27/24 21:00 MDM - SOB/Dyspnea Medical Decision Making Differential diagnosis for patient with shortness of breath includes but is not limited to and based on the above HPI, review of systems and physical exam: Pneumonia. Bronchitis. Asthma or COPD with acute exacerbation. Acute coronary syndrome / OR. Pulmonary embolism. Anxiety. Congestive heart failure. Viral infections including influenza and Covid-19. Atrial fibrillation. Anxiety. Pleural effusion. Pneumothorax. Orders placed to evaluate differential diagnosis based on the above differential, HPI and physical exam I have also added in lab work and an EKG for medical clearance. I am not sure that he qualifies for a shelter and I am not sure that that is appropriate for the emergency room tonight at 9 PM. Patient care transitioned to Dr. Cárdenas at shift change. Awaiting workup for shortness of breath and medical clearance. Prior to completion of all lab tests ordered by initial treating physician, patient request to go home. Vital signs are stable and chest x-ray is clear. I do not detect any emergent process requiring him to stay. As such, he will be discharged home in stable condition. Lab Data Labs/Radiology: Laboratory Results Urine Color Yellow (Yellow) 11/27/24 21:18 Urine Appearance Clear (CLEAR) 11/27/24 21:18 Urine pH 7.5 (5-7) 11/27/24 21:18 Ur Specific [place] 1.008 (1.005-1.030) 11/27/24 21:18 Urine Protein Negative (Negative) 11/27/24 21:18 Urine Glucose (UA) Negative (Normal) 11/27/24 21:18 Urine Ketones Negative (Negative) 11/27/24 21:18 Urine Blood Negative (Negative) 11/27/24 21:18 Urine Nitrate Negative (Negative) 11/27/24 21:18 Urine Bilirubin Negative (Negative) 11/27/24 21:18 Urine Urobilinogen 1.0 mg/dL (Negative) 11/27/24 21:18 Ur Leukocyte Esterase Negative (Negative) 11/27/24 21:18 Urine RBC 0-2 /hpf (0-2) 11/27/24 21:18 Urine WBC 0-5 /hpf (0-5) 11/27/24 21:18 Ur Squamous Epith Cells 0-5 /hpf (0-5) 11/27/24 21:18 Amorphous Sediment Not Reportable 11/27/24 21:18 Urine Bacteria None seen /hpf (NONE) 11/27/24 21:18 Hyaline Casts 0-4 /lpf H 11/27/24 21:18 Urine Opiates Screen Negative ng/mL (Negative) 11/27/24 21:18 Ur Barbiturates Screen Negative ng/mL (Negative) 11/27/24 21:18 Ur Phencyclidine Scrn Negative ng/mL (Negative) 11/27/24 21:18 Ur Amphetamines Screen Negative ng/mL (Negative) 11/27/24 21:18 U Benzodiazepines Scrn Negative ng/mL (Negative) 11/27/24 21:18 Urine Cocaine Screen Negative ng/mL (Negative) 11/27/24 21:18 U Marijuana (THC) Screen Negative ng/mL (Negative) 11/27/24 21:18 All radiology interpretation(s) finalized by discharge Discharge Plan Discharge Patient Disposition: Home Clinical Impression: Suspected condition not found, At risk for dissatisfaction with healthcare Condition: Stable Prescriptions: No Action simvastatin 40 mg tablet 40 mg PO BEDTIME Invega Sustenna 234 mg/1.5 mL syringe 234 mg IM Q30D Rx Instructions: Injection every 28 days Received at [facility] today, 10/29/24 divalproex [Depakote ER] 500 mg tablet extended release 24 hr 500 mg PO BID Qty: 60 3RF losartan 25 mg tablet 25 mg PO DAILY cetirizine 10 mg tablet 10 mg PO DAILY metformin 500 mg Tablet 500 mg PO BIDWM 30 Days Qty: 60 1RF metoprolol tartrate 25 mg tablet 25 mg PO BID 30 Days Qty: 60 1RF sodium chloride 1,000 mg tablet,soluble 1,000 mg PO BID gabapentin 100 mg capsule 100 mg PO BID Discharge Orders: Discharge ED (Routine); Ordered 11/27/24 Ordered By: Sonny Cárdenas Referrals: Shemar Arcos MD [Primary Care Provider, Family Practice] Discharge Diet: Usual diet Discharge Activity: Increase activity as tolerated Patient Instructions: Patient Portal & [place] Instructions Activity Restrictions/Additional Instructions: Your vital signs are stable and your chest x-ray is clear. Print Language: Azerbaijani Sign Out Sign Out Data: Patient Sign Out occurred on 11/27/24 at 22:02. Patient's care was discussed, and care was transferred from Rosalba Carroll MD to Sonny Cárdenas MD. 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
[2024-11-27 21:30] LABS: Glucose Urine UA Negative (Normal); Nitrate Urine Negative (Negative); Specific Gravity, Urine 1.008 (1.005-1.030)
[2024-11-27 21:43] LABS: PCP Screen Urine Negative (Negative)
--- OUTSIDE RECORDS SUMMARY | 2024-11-27 21:44 | XMS_ITS | Encounter Summary ---
Author Organization [facility] Address [address] [place] [address] Care Team Providers Care Inspector Clip On Sunglasses Name Role Phone Unavailable Primary Care Provider Unavailabl e Encounter Details Date Type Department Care Team (Late st Contact Info) Description 11/27/2024 Abstract [facility] [place] [address] [place] [address] Brad Correa MD [address] [place] [address] Social History Tobacco Use Types Packs/Day Years Used Date Smoking Tobacco: Former Cigarettes Q uit: 12/22/2011 Smokeless Tobacco: Former Comments:Quit smoking: quit 8 years ago Alcohol Use Standard Drinks/Week Comments Not Currently 0 (1 standard drink = 0.6 oz pur e alcohol) Education Answer Date Recorded What is the highest level of school you have completed or the highest degree you have received? 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
--- OUTSIDE RECORDS SUMMARY | 2024-11-27 21:44 | XMS_ITS | Clinical Summary ---
Author Organization [facility] Address [address] [facility] Attn: Epic Prelude ADT [place] [address] Care Team Providers Care Cook Ice Cream Name Role Phone Unavailable Primary Care Provider Unavailabl e Allergies Active Allergy Reactions Criticality Noted Date Comments Lactose Diarrhea Medium 08/03/2022 Lolo Anaphylaxis,Other (S ee Comments) High 05/02/2018 Vomiting [...] admission 06/15 Borderline diabetes 06/20/2021 Atherosclerosis of [place] co ronary artery of [place] heart without angina pectoris 06/13/2021 Benign prostatic [...] 08/27/2021 Right lower quadrant abdominal pain 08/27/2021 Encounters Date Type Department Care Team Description 11/27/2024 Abstract [facility]rology [address] [place] [address] Brad Correa MD 11/25/2024 Telephone [facility]rology [address] [place] [address] Provider, Abstract urology referral appointment 11/25/2024 Abstract [facility] [place] [address] Provider, Abstract from Last 3 Months Immunizations Immunization Administration Dates Next Due Influenza [...] on file 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 Gender Identity Not on file Sexual Orientation [...] 04/30/2019, 04/30/20 19 Colorectal Cancer Screening 04/30/2024 [place] ([place]) Prev entative Visit/Annual Wellness Visit 05/14/2024 09/04/2022 INFLUENZA VACCINE (#1) 2024 08/03/2022, 2018 Procedures Procedure Name Priority Date/Time Associated Diagnosis Comments COLONOSCOPY REPORT 04/30/2019 4:17 PM MICROBIOLOGY DIRECTOR from Last 3 Months or Most Recently Relevant to Health Maintenance Results * COLONOSCOPY REPORT (04/30/2019 4:17 PM MICROBIOLOGY DIRECTOR) Teofilo Graves MD GI PROCEDURE ORDERABL ES Final Result from Last 3 Months or Most Recently Relevant to Health Maintenance Insurance MEDICAID [facility] DUAL COMPLETE HMO [facility] [id number] RX [employer] RX Member Subscriber Plan / Payer (Ef fective 2021-Present) Name:Benedicto Amaral Relation to Subscriber:Self Name:Benedicto Amaral Subscriber ID:Not on file Payer ID:Not on file Group ID:[id number] Type:RX Medicare Part D Address: [place] MED[place] [facility] MEDICARE [id number] [place] [address] Advance Directives For more information, please contact: [phone] * Full Code (Latest Code Status on [...]
--- OUTSIDE RECORDS SUMMARY | 2024-11-27 21:45 | XMS_ITS | Encounter Summary ---
Author Organization [facility] Address [address] [place] [address] Care Team Providers Care Vp Security Name Role Phone Unavailable Primary Care Provider Unavailabl e Encounter Details Date Type Department Care Team (Late st Contact Info) Description 11/25/[address] 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
--- OUTSIDE RECORDS SUMMARY | 2024-11-27 21:45 | XMS_ITS | Encounter Summary ---
Author Organization [facility] Address 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
--- OUTSIDE RECORDS SUMMARY | 2024-11-27 21:45 | XMS_ITS | Data Portability ---
Author Organization [facility] Address [address] [place] [address] Care Team Providers Care Collar Shaper Operator Name Role Phone CHRISTOPHER ARCOS Primary [...] Organization Details Last Modified Time Details Appointments OFFICE VISIT 15 2024 09:00A M Christopher Arcos MD Not available Not available Not available Lab hemoglobi n A1C/hemog lobin total, QN, blood 2024 025 [facility], [address], [place], [address], 11/04/2024 11:07:15 CMP, serum or plasma 2024 025 [facility], [address], [place], [address], 11/04/2024 11:47:15 microalbu min/creat inine, mass ratio, urine 2024 025 [facility], [address], [place], [address], 11/05/2024 06:21:07 lipid panel, blood 2024 025 [facility], [address] [facility], [address], [place], [address], 11/04/2024 11:47:[address] referral [address] [facility], [address] [place], [address], 11/27/2024 17:37:28 urologist referral [address] [facility], [address] [place], [address], 11/24/2024 14:30:42 gastroent erologist referral 2024 025 [place] [address] Julian So MD, [address] [place] [address], [facility], [place], [address], 11/24/2024 09:44:33 Procedures None recorded. Surgeries None recorded. Imaging XR, pelvis [address] ([facility]), [address] [place], [address], 10/24/2024 13:49:33 XR, hip, unilatera l [address] ([facility]), [address] [place], [address], 10/24/2024 13:49:34 XR, knee, 3 view [address], [address] [place], [address], 10/24/2024 13:49:34 Medication Orders tamsulosi n 0.4 mg capsule 2024 025 [id number], [address], [address], [place], [address], 11/20/2024 11:52:25 Patient TargetsNo targets recorded. Patient InstructionsNo instructions recorded. Reason for Referral Title Investigator Referral for Screening for malignant neoplasm of colon Referring Physician: Christopher Arcos [facility], Encounter Date: 11/04/2024 Neurologist Referral for Par kinson's disease Referring Physician: Christopher Arcos [facility], Encounter Date: 11/20/2024 Urologist Referral for Benig n prostatic hyperplasia Referring Physician: Christopher Arcos [facility], Encounter Date: 11/20/2024 Results Created Date Observation Date Name Description Value Unit Range Abnormal Flag Note LastModifiedBy Organization Detail LastModifiedTime 11/05/1911/04/2024 HBA1C hemaglobin A1C 6.3 4.2-6. 5 Not Available [facility] [address] [facility] [address], [place], [address], 11/04/2024 11:07:15 11/05/1911/04/2024 CMP (MALE ) glucose 105.0 mg/dL 60.0-9 9.0 high Not Available [facility] [address] [facility] [address], [place], [address], 11/04/2024 11:47:15 11/05/19 25 11/04/2024 CMP (MALE ) BUN (blood urea nitrogen) 16.0 mg/dL 10.0-2 6.0 Not Available [facility] [address] [facility], [place], [address], 11/04/2024 11:47:15 11/05/19 25 11/04/2024 CMP (MALE ) creatinine (serum) 0.8 mg/dL 0.4-1. 5 Not Available [facility] [address] [facility], [place], [address], 11/04/2024 11:47:15 11/05/19 25 11/04/2024 CMP (MALE ) BUN/creatini ne ratio 20.00 ratio Not Available [facility] [address], [place], [address], 11/04/2024 11:47:15 11/05/19 25 11/04/2024 CMP (MALE ) eGFR calculated 104.1 Not Available [facility] [address] 1, [place], [address], 11/04/2024 11:47:15 11/05/19 25 11/04/2024 CMP (MALE ) total protein 6.5 g/dL 6.0-8. 5 Not Available [facility] [address] 1, [place], [address], 11/04/2024 11:47:15 11/05/19 25 11/04/2024 CMP (MALE ) total bilirubin 0.9 mg/dL 0.2-1. 3 Not Available [facility] [address] 1, [place], [address], 11/04/2024 11:47:15 11/05/19 25 11/04/2024 CMP (MALE ) albumin 3.8 g/dL 3.5-5. 5 Not Available [facility] [address] 1, [place], [address], 11/04/2024 11:47:15 11/05/19 25 11/04/2024 CMP (MALE ) globulin 2.7 calc Not Available [facility] [address] [facility] 1, [place], [address], 11/04/2024 11:47:15 11/05/19 25 11/04/2024 CMP (MALE ) AST (SGOT) 25.0 U/L 0.0-46 .0 Not Available [facility] [address] [facility] [address], [place], [address], 11/04/2024 11:47:15 11/05/19 25 11/04/2024 CMP (MALE ) altv (SGPT) 16.0 U/L 13.0-6 9.0 normal Not Available [facility] [address] [facility] [address], [place], [address], 11/04/2024 11:47:15 11/05/19 25 11/04/2024 CMP (MALE ) A/G ratio 1.4 ratio Not Available [facility] [address] [facility] [address], [place], [address], 11/04/2024 11:47:15 11/05/19 25 11/04/2024 CMP (MALE ) ALP phos 71.0 U/L 30.0-1 40.0 normal Not Available [facility] [address] [facility], [place], [address], 11/04/2024 11:47:15 11/05/19 25 11/04/2024 CMP (MALE ) calcium 8.6 mg/dL 8.4-10 .5 Not Available [facility] [address] [facility], [place], [address], 11/04/2024 11:47:15 11/05/19 25 11/04/2024 CMP (MALE ) sodium 127.0 mmol/ L 136.0- 145.0 low Not Available [facility] [address] [facility], [place], [address], 11/04/2024 11:47:15 11/05/19 25 11/04/2024 CMP (MALE ) potassium 3.9 mmol/ L 3.5-5. 1 Not Available [facility] [address] [facility] [facility], [place], [address], 11/04/2024 11:47:15 11/05/19 25 11/04/2024 CMP (MALE ) chloride 91.0 mmol/ L 98.0-1 10.0 abnormal Not Available [facility] [address] [facility] [address], [place], [address], 11/04/2024 11:47:15 11/05/19 25 11/04/2024 CMP (MALE ) C02 31.0 mmol/ L 22.0-3 1.0 Not Available [facility] [address] [facility] [address], [place], [address], 11/04/2024 11:47:15 11/05/19 25 11/04/2024 CMP (MALE ) anion gap 5.0 calc Not Available [facility] [address] [facility] [address], [place], [address], 11/04/2024 11:47:15 11/05/19 25 11/04/2024 CMP (MALE ) osmolality 264.6 calc Not Available [facility] [address] [facility] [address], [place], [address], 11/04/2024 11:47:15 11/05/19 25 11/04/2024 LIPID PROFI LE (MALE ) cholesterol 122.0 mg/dL 0.0-20 0.0 Not Available [facility] [address] [facility] [address], [place], [address], 11/04/2024 11:47:17 11/05/19 25 11/04/2024 LIPID PROFI LE (MALE ) trig 188.0 mg/dL 0.0-15 0.0 high Not Available [facility] [address] [facility] 1, [place], [address], 11/04/2024 11:47:17 11/05/19 25 11/04/2024 LIPID PROFI LE (MALE ) HDL - direct 29.0 mg/dL >40.0 low Not Available [facility] [address] [facility] [address], [place], [address], 11/04/2024 11:47:17 11/05/19 25 11/04/2024 LIPID PROFI LE (MALE ) VLDL - direct 37.6 mg/dL Not Available [facility] [address] [facility] [address], [place], [address], 11/04/2024 11:47:17 11/05/19 25 11/04/2024 LIPID PROFI LE (MALE ) LDL - direct 55.4 mg/dL 0.0-13 0.0 Not Available [facility] [address] [facility] [address], [place], [address], 11/04/2024 11:47:17 11/05/19 25 11/05/2024 ALBUM IN, RANDO M URINE W/CRE ATINI NE creatinine, random urine 147 mg/dL 20-320 normal Not Available [facility] [address] [place], [address], 11/05/2024 06:21:07 11/05/1911/05/2024 ALBUM IN, RANDO M URINE W/CRE ATINI NE albumin, urine 0.6 mg/dL see note: normal Refer ence Range : Refer ence Range Not estab lishe d Not Available [facility] [address] [place], [address], 11/05/2024 06:21:07 11/05/19 25 11/05/2024 ALBUM IN, [...] a diagn ostic categ ory. Not Available [facility] [address] [place], [address], 11/05/2024 06:21:07 10/25/19 25 10/23/2024 XR, pelvi s No observ ation record ed. [facility] [address] [place], [address], 10/26/2024 11:36:09 10/25/19 25 10/23/2024 XR, hip, unila teral No observ ation record ed. [facility] [address] [place], [address], 10/26/2024 11:36:10 10/25/19 25 10/23/2024 XR, knee, 3 view No observ ation record ed. [facility] [address] [place], [address], 10/26/2024 11:36:10 Result Notes None recorded. Problems Name Problem SNOMED Code Status Onset Date Resolution Date Notes Provider Name and Address Organization Details Recorded Time Psychotic disorder 10337563 Active 2022 REGI agustin [place] [facility] 3 11:37:18 Parkinson's disease 61372901 Active 2022 Christopher Arcos MD [address] [place], [address] , [facility] LAnsonLNiles 5 11:49:36 Benign prostatic hyperplasia 708440014 Active 2022 REGI agustin, [facility] 3 11:37:18 Bipolar disorder 33916951 Active 2022 REGI agustin, [facility] 3 11:37:17 Lower urinary tract symptoms due to benign prostatic hypertrophy 5346567173834 1 Active 2022 REGI agustin, [facility] 3 11:37:18 Essential hypertensio n 28310494 Active 2022 REGI CHENG nikole, [facility] 3 11:37:18 History of myocardial infarction 951366514 Active 2022 REGI CHENEdilberto agustin, [facility] 3 11:37:18 Schizophren ia 68667029 Active 2022 REGI agustin, [facility] 3 16:42:51 Hyperglycem ia 91928141 Active 2022 REGI agustin, [facility] 3 16:43:01 Allergic rhinitis 94401856 Active 2022 REGI agustin, [facility] 3 16:42:56 Acquired hearing loss 619359293 Active 2022 REGI agustin, [facility] 3 16:42:48 Hyperlipide tyler 38160243 Active 2022 Christopher Arcos MD [address] [place] [address], [address] [place] [address], L.L.C. 3 10:13:33 Fear of heights 678636419 Active 2022 Christopher Arcos MD [address] [place] [address], [phone], [facility], L.L.CAnson 3 10:13:55 Contusion of left knee 0273594304295 9109 Active 2024 Christopher Arcos MD [address] [place] [address], [address], [facility], L.LAnsonCAnson 5 18:55:08 Type 2 diabetes mellitus 10841378 Active 2024 Christopher Arcos MD [address] [place] [address], [address], [facility], L.L.CAnson 5 10:19:33 Generalized anxiety disorder 80020005 Active 2024 Christopher Arcos MD [address] [place] [address], [address], [facility], L.L.CAnson 5 11:54:36 Problem Notes None recorded. Procedures Surgical History Date Name Laterality Status Provider Name and Address Organization Details Recorded Time Gallbladder Surgery completed Paulalane Borrero [facility] 11/20/2024 11:38:20 Imaging Results None recorded. Procedure Notes None recorded. Medical Equipment None Reported. Allergies Allergen ID Allergen Name Allergen Category Reaction Reaction Severity Criticality Documentation Date Start Date Code Code System Note Provider Name and Address Organization Details Recorded Time 4597 Product containin g penicilli n (product) medicatio n Not available Not available Not available 11/01/2022 92929 8001 SNOMED REGI MILNER nikole [facility]son 3 10:01:00 4598 Oxycontin medicatio n Not available Not available Not available 11/01/2022 25057 6 RxNorm REGI agustin [facility] L.L.CAnson 3 10:01:10 70996 lithium Not available Not available Not available Not available 04/02/2023 6448 RxNorm MCK[place] ED agustin [facility] 3 09:45:23 13107 lactose food,medi cation Not available Not available Not available 11/20/2024 6211 RxNorm Paula Borrero nikole [facility] 5 11:37:22 Medications Name Sig Start Date Stop Date [...] No t Available lorazepam 0.5 mg tablet take 1/2 tablet BY MOUTH TWICE DAILY active Not Available Not Available No t Available tamsulosin 0.4 mg capsule Take 1 capsule every day by oral route. 2024 active Not Available Not Available Not Avai lable cephalexin 500 mg capsule take 1 capsule BY MOUTH EVERY 6 HOURS 11/20 completed Not Available Not Available Not Available simvastatin 20 mg tablet take ONE [...] completed Not Available Not Available Not Available gabapentin 100 mg capsule take 1 capsule BY MOUTH TWICE DAILY active Not Available [...] inject 234mg (1.5ml) INTRAMUSC ULARLY every 30 DAYS active Not Available Not Available No t Available Flonase Allergy Relief 50 mcg/actuati on nasal spray,suspe nsion [place] 1 spray every day by intranasa l route. 10/17 completed Not Available Not Available Not Available Vitals Date Recorded Body height Body mass index (BMI) Body weight Provider Name and Address Organization Details Last Updated DateTime 10/17/2024 180.34 cm 32.4 kg/m2 566106.43 g Barb Lackey [facility] 10/17/2024 09:53:02 Date Recorded Body height Body mass index (BMI) Body weight Oxygen saturation Oxygen saturation in Arterial blood by Pulse oximetry Heart rate Respiratory rate Body temperature Systolic And Diastolic Provider Name and Address Organization Details Last Updated DateTime 180.34 cm 32.1 kg/m2 441419. 25 g 97 % 97 % 105 /min 18 /min 98.2 [degF] 140/90 mm[Hg] Barb Lackey [facility] 10:51:14 Date Recorded Body height Body mass index (BMI) Body weight Body temperature Oxygen saturation Oxygen saturation in Arterial blood by Pulse oximetry Heart rate Systolic And Diastolic Provider Name and Address Organization Details Last Updated DateTime 180.34 cm 33.5 kg/m2 188633. 17 g 97.6 [degF] 94 % 94 % 103 /min 144/78 mm[Hg] Renettazulema Herbert [facility] 09:20:19 Social History Question Answer Notes LastModified by [employer] Details LastModified Time Tobacco Smoking Status Former Sm[facility] 04/02/2023 09:47:08 What Is Your Level Of Caffeine Consumption? Occasional Information not available 04/02/2023 What Was The Date Of Your Most Recent Tobacco Screening? 11/04/2024 [email or web address] Information not available 11/04/2024 What Is Your Relationship Status? Information not available 04/02/2023 Sex: Unknown Functional Status Question Answer Note LastModified by [employer] SACV ion Details LastModified Time What is your [...] Immunizations Vaccine Type Date Status Note Provider Barrett jean and Address Organization Details Recorded Time COVID-19, mRNA, LNP-S, PF, 100 mcg/0.5mL dose or 50 mcg/0.25mL dose 2 completed REGI agustin, [facility] 02/04/2023 16:43:22 COVID-19, mRNA, LNP-S, bivalent, PF, 30 mcg/0.3 mL dose 2 completed REGI agustin, [facility] 02/04/2023 16:43:22 influenza, unspecified formulation 5 completed REGI agustin [facility] 02/04/2023 16:43:22 Tdap 6 completed REGI agustin, [facility] 02/04/2023 16:43:22 Tdap 2 completed REGI agustin, [facility] 02/04/2023 16:43:22 Tdap 2 completed REGI CHENG nikole, [facility] 02/04/2023 16:43:22 Influenza, split virus, trivalent, PF 7 completed REGI agustin, [facility] 02/04/2023 16:43:22 Hep A, adult 9 completed REGI agustin, [facility] 02/04/2023 16:43:22 Hep A, adult 9 completed REGI agustin, [facility] 02/04/2023 16:43:22 Influenza, split virus, quadrivalent, PF 9 completed REGI agustin [facility] 02/04/2023 16:43:22 Influenza, split virus, quadrivalent, PF 9 completed REGI agustin, [facility] 02/04/2023 16:43:22 Influenza, split virus, quadrivalent, PF 2 completed REGI agustin [facility] 02/04/2023 16:43:22 COVID-19, mRNA, LNP-S, PF, 50 mcg/0.5 mL 3 completed REGI agustin [facility] 06/01/2023 19:12:57 Influenza, recombinant, trivalent, PF 4 completed Not Available [facility] 11/20/2024 10:32:15 Influenza, split virus, quadrivalent, PF 3 completed REGI agustin [facility] 02/05/2023 11:06:09 Past Encounters Encounter ID Performer Location Encounter Start Date Encounter Closed Date Diagnosis/Indication Diagnosis SNOMED-CT Code Diagnosis ICD10 Code Diagnosis Note [id number] Christopher Arcos MD [facility] ([facility]) [address] [place] [phone] 11/01/2022 09:45:19 11/01/2022 12:47:18 Lower urinary tract symptoms due to benign prostatic hypertrophy 5935299017 9101 N40.1 Parkinson's disease 4904 9000 G20 Psychotic disorder 19916 001 F29 Bipolar disorder 2255999 4 F31.9 Essential hypertension 60498959 I10 History of myocardial infarction 239055529 I25.2 [id number] Christopher Arcos MD [facility] ([facility]) [address] [place] [phone] 12/20/2022 09:35:24 12/20/2022 10:38:21 Essential hypertension 56820672 I10 Benign pro static hyperplasia 876051215 N40.1 Schizophrenia 48896522 F 20.9 Bipolar disorder 3649377 4 F31.9 Hyperglycemia 55329270 R 73.9 Allergic rhinitis 372870 04 J30.9 Acquired hearing loss 72 1973059 H91.90 [id number] Christopher Arcos MD [facility] ([facility]) [address] [place] [phone] 02/05/2023 09:36:55 02/05/2023 10:48:47 Benign prostatic hyperplasia 564661729 N40.1 Patient is awaiting urology evaluation and treatment. Essential hypertension 97460676 I10 Blood pressure is mildly elevated today.. Patient will monitor blood pressure and report if unable to control or if they develop new symptoms. Schizophrenia 36932711 F 20.9 Patient is doing well on current medication s. Continue follow-ups with psychiatry [id number] Christopher Arcos MD [facility] ([facility]) [address] [place] [phone] 04/02/2023 09:37:06 04/02/2023 15:33:03 Adult health examination 757065863 Z00.00 We will check labs today. Patient has been having some glucose issues. Patient was encouraged to eat a well-terrell isaias diet and exercise 30 minutes daily. Essential hypertension 86823752 I10 Pressure not well controlled . Start lisinopril . Patient was encouraged to have his blood pressure checked routinely. Hyperlipidemia 22373726 E78.5 Fear of heights 75571897 1 F40.241 We will provide a letter stating that he has fair hygiene to consider weaning him to a lower level apartment if available. [id number] JAY RAMSEY [facility] ([facility]) [address] [place] [phone] 10/17/2024 09:47:49 10/17/2024 11:03:51 [id number] Christopher Arcos MD [facility] ([facility]) [address] [place] [id number] 10/23/2024 10:42:36 10/24/2024 13:49:33 Fall W19.XXXA Trays were obtained of the pelvis, hip, and knee and reviewed by me. No evidence of fracture. The patient does have significan t degenerati ve changes noted within his back. Mild arthritis. Contusion of left knee 2497443090 7023088 S80.02XA The patient does have evidence of significan t contusion and bleeding under the skin. Encouraged the patient to continue ambulating and mobilizing . Follow-up if symptoms do not improve. [id number] JAY PETER [facility] ([facility]) [address] [place] [phone] 10/28/2024 09:40:33 10/28/2024 10:18:07 [id number] Christopher Arcos MD [facility] ([facility]) [address] [place] [phone] 11/04/2024 09:06:09 11/04/2024 10:34:47 At increased risk for falls 687216198 Z91.81 Does have increased risk for falls and has fallen at his apartment recently. Patient would benefit from assistive devices, however insurance will not pay for wheelchair , rollator, and cane. Feels that he would mostly benefit from rollator and will send her order over to part of the [employer] equipment for this device. Also has increased risk for falls especially in the shower so a shower chair would be appropriat e. Type 2 tho betes mellitus 27944659 E11.9 Z79.4 Patient reports a history of [...] accurate list can be made. Essential hypertension 08827783 I10 Pressure not well controlled . Start lisinopril . Patient was encouraged to have his blood pressure checked routinely. Schizophrenia 89479763 F 20.9 Patient needs to continue to follow with psychiatry . Will try to find what medication he was placed on during his recent inpatient psych admission. Hyperlipidemia 88299105 E78.5 Screening for malignant neoplasm of colon 439983755 Z12.11 Will send referral to GI for colon cancer screening. Generalize d anxiety disorder 14190948 F41.1 [id number] Christopher Arcos MD [facility] ([facility]) [address] [place] [id number] 11/20/2024 10:31:33 11/20/2024 12:20:02 Parkinson's disease 65328010 G20.A1 Will send referral to neurology. Benign pro static hyperplasia 422145915 N40.1 The patient would like to be sent back to urology discussed options. The patient was interested in restarting tamsulosin since that will help with his prostate and urinary issues. Health Concerns Section Related Observation LastModified by Organization Detai ls LastModified Time None Recorded Concern Status LastModified by Organization Details LastModified Time None Recorded Advance Directives Directive None Recorded Payers Insurance Date Sequence Insurance Name Policy Number Policy Franklin Covered Member ID Franklin Member ID Guarantor Name 11/17/2024 [place] [facility] Benedicto Amaral [id number] Benedicto Amaral 11/24/2024 1 [facility] [place] - [place]) Benedicto Amaral [id number] Benedicto Amaral 10/17/2024 1 [place] [id number] Benedicto Amaral [id number] Benedicto Amaral 11/17/2024 2 [place] Benedicto Amaral [id number] Benedicto Amaral Notes Date Note Type Note Provider Name and Address Organization Details Recorded Time 10/23/2024 text/html walk in patientp atient is here today for left hip pain, and left knee pain after a fell he thinks it was weeks ago. Christopher Arcos MD [address] [place] [address], [phone], [facility], [facility] 10/24/2024 11:26:50 11/04/2024 text/html Annual WellnessReported bypatient.Diet [...] weeks prior at his place of living, [facility]. He would like to go to a [...] hospital time in a psych facility at [facility]. Patient states that they started him on new medications but he does not recall what they were. Christopher Arcos MD [address] [place] [address], [phone], [facility] 11/05/2024 11:55:05 11/20/2024 text/html This is a 64-yea r-old gentleman comes in today for routine follow-up. Patient went to the ER this morning due to chest pain. Patient had lab work and evaluation and he was medically cleared. Patient is concerned about his Parkinson's that he was diagnosed years ago. Patient does not currently see a neurologist. Patient also has been having trouble with urination and states that he has issues with his prostate. Patient was previously on tamsulosin but had stopped the medication thinking that was for something else. The patient is significantly concerned about cancer. Patient has had normal lab work done in the ER this morning. Patient has referral sent to Dr. So for colonoscopy consult. Christopher Arcos MD [address] [place] [address], [phone], [facility] 11/22/2024 20:15:01
--- OUTSIDE RECORDS SUMMARY | 2024-11-27 21:45 | XMS_ITS | Continuity of Care Document ---
Author Organization [facility], [facility] Address [address] [place] [address] Care Team Providers Care Multi Punch Operator Name Role Phone CHRISTOPHER ARCOS Primary Care Provider [phone] Assessment No assessment recorded. Plan of Treatment Reminders Order Date Submit Date Provider Last Modified By Organization Details Last Modified Time Details Appointments OFFICE VISIT 15 2024 09:00A M Christopher Arcos MD Not available Not available Not available Lab None recorded. Referral neurologi st referral 2024 025 [facility], [address] [place], [address], 11/27/2024 17:37:28 urologist referral 2024 025 [email or web address] [facility], [address] [place], [address], 11/24/2024 14:30:42 Procedures None recorded. Surgeries None recorded. Imaging None recorded. Medication Orders tamsulosi n 0.4 mg capsule 2024 025 [id number], [address], [facility], [place], [address], 11/20/2024 11:52:25 Patient TargetsNo targets recorded. Patient InstructionsNo instructions recorded. Reason for Referral Neurologist Referral for Par kinson's disease Referring Physician: Christopher Arcos, Family Medicine, Encounter Date: 11/20/2024 Urologist Referral for Benig n prostatic hyperplasia Referring Physician: Christopher Arcos, Family Medicine, Encounter Date: 11/20/2024 Results Created Date Observation Date Name Description Value Unit Range Abnormal Flag Note LastModifiedBy Organization Detail LastModifiedTime 10/25/1910/23/2024 XR, pelvi s No observ ation record ed. [facility] [address] [place], [address], 10/26/2024 11:36:09 10/25/19 25 10/23/2024 XR, hip, unila teral No observ ation record ed. [facility] [address] [place], [address], 10/26/2024 11:36:10 10/25/19 25 10/23/2024 XR, knee, 3 view No observ ation record ed. [facility] [address] [place], [address], 10/26/2024 11:36:10 Result Notes None recorded. Problems Name Problem SNOMED Code Status Onset Date Resolution Date Notes Provider Name and Address Organization Details Recorded Time Psychotic disorder 60248249 Active 2022 REGI agustin [facility] 3 11:37:18 Parkinson's disease 67277309 Active 2022 Christopher Arcos MD [address] [place] [address], [phone] , [facility] 5 11:49:36 Benign prostatic hyperplasia 875646023 Active 2022 REGI agustin [facility] 3 11:37:18 Bipolar disorder 15137230 Active 2022 REGI agustin [facility] 3 11:37:17 Lower urinary tract symptoms due to benign prostatic hypertrophy 4784942100565 1 Active 2022 REGI agustin, [facility] 3 11:37:18 Essential hypertensio n 64410186 Active 2022 REGI agustin, [facility] 3 11:37:18 History of myocardial infarction 768210767 Active 2022 REGI CHENG nikole, [facility] 3 11:37:18 Schizophren ia 73934917 Active 2022 REGI ALF agustin, [facility] 3 16:42:51 Hyperglycem ia 76593756 Active 2022 REGI ALF agustin, [facility] 3 16:43:01 Allergic rhinitis 87245739 Active 2022 REGI CHENG null, [facility] 3 16:42:56 Acquired hearing loss 384274237 Active 2022 REGI ALF agustin, [facility] 3 16:42:48 Hyperlipide tyler 55703004 Active 2022 Christopher Arcos MD [address] [place] [address], [phone], [facility] 3 10:13:33 Fear of heights 588718078 Active 2022 Christopher Arcos MD [address] [place] [address], [phone], [facility] 3 10:13:55 Contusion of left knee 4678969480625 9109 Active 2024 Christopher Arcos MD [address] [place] [phone], [facility] 5 18:55:08 Type 2 diabetes mellitus 86916265 Active 2024 Christopher Arcos MD [address] [place], [address], [facility] 5 10:19:33 Generalized anxiety disorder 65680647 Active 2024 Christopher Arcos MD [address] [place], [address], [facility] 5 11:54:36 Problem Notes None recorded. Procedures Surgical History Date Name Laterality Status Provider Name and Address Organization Details Recorded Time Gallbladder Surgery completed Paula Borrero [facility] 11/20/2024 11:38:20 Imaging Results None recorded. Procedure Notes None recorded. Medical Equipment None Reported. Allergies Allergen ID Allergen Name Allergen Category Reaction Reaction Severity Criticality Documentation Date Start Date Code Code System Note Provider Name and Address Organization Details Recorded Time 4597 Product containin g penicilli n (product) medicatio n Not available Not available Not available 11/01/2022 45046 8001 SNOMED REGI agustin [facility] 3 10:01:00 4598 Oxycontin medicatio n Not available Not available Not available 11/01/2022 04212 6 RxNorm REGI agustin [facility] 3 10:01:10 82653 lithium Not available Not available Not available Not available 04/02/2023 6448 RxNorm CAMILLE HERNANDEZLane agustin [facility] 3 09:45:23 57553 lactose food,medi cation Not available Not available Not available 11/20/2024 6211 RxNorm Paula agustin [facility] 5 11:37:22 Medications Name Sig Start Date [...] Relief 50 mcg/actuati on nasal spray,suspe nsion [place] 1 spray every day by intranasa l route. 10/17 completed Not Available Not Available Not Available Vitals None Recorded Social History Question Answer Notes LastModified by Organizat ion Details LastModified Time Tobacco Smoking Status [facility] 04/02/2023 09:47:08 What Is Your Level Of Caffeine Consumption? Occasional Information not available 04/02/2023 What Was The Date Of Your Most Recent Tobacco Screening? 11/04/2024 Information not available 11/04/2024 What Is Your [...] 50 mcg/0.25mL dose 2 completed REGI agustin [facility] 02/04/2023 16:43:22 COVID-19, mRNA, LNP-S, bivalent, PF, 30 mcg/0.3 mL dose 2 completed REGI agustin [facility] 02/04/2023 16:43:22 influenza, unspecified formulation 5 completed REGI agustin [facility] 02/04/2023 16:43:22 Tdap 6 completed REGI agustin [facility] 02/04/2023 16:43:22 Tdap 2 completed REGI agustin [facility] 02/04/2023 16:43:22 Tdap 2 completed REGI agustin [facility] 02/04/2023 16:43:22 Influenza, split virus, trivalent, PF 7 completed REGI agustin [facility] 02/04/2023 16:43:22 Hep A, adult 9 completed REGI agustin, [facility] 02/04/2023 16:43:22 Hep A, adult 9 completed REGI agustin, [facility] 02/04/2023 16:43:22 Influenza, split virus, quadrivalent, PF 9 completed REGI agustin, [facility] 02/04/2023 16:43:22 Influenza, split virus, quadrivalent, PF 9 completed REGI agustin, [facility] 02/04/2023 16:43:22 Influenza, split virus, quadrivalent, PF 2 completed REGI agustin [facility] 02/04/2023 16:43:22 COVID-19, mRNA, LNP-S, PF, 50 mcg/0.5 mL 3 completed REGI agustin [facility] 06/01/2023 19:12:57 Influenza, recombinant, trivalent, PF 4 completed Not Available [facility] 11/20/2024 10:32:15 Influenza, split virus, quadrivalent, PF 3 completed REGISA ALF agustin [facility] 02/05/2023 11:06:09 Past Encounters Encounter ID Performer Location Encounter Start Date Encounter Closed Date Diagnosis/Indication Diagnosis SNOMED-CT Code Diagnosis ICD10 Code Diagnosis Note [id number] Christopher Arcos MD [facility]) [address] [place] [address] 10/23/2024 10:42:36 10/24/2024 13:49:33 Fall W19.XXXA Trays were obtained of the pelvis, hip, and knee and reviewed by me. No evidence of fracture. The patient does have significan t degenerati ve changes noted within his back. Mild arthritis. Contusion of left knee [id number] 3579787 S80.02XA The patient does have evidence of significan t contusion and bleeding under the skin. Encouraged the patient to continue ambulating and mobilizing . Follow-up if symptoms do not improve. [id number] JAY PETER [facility] ([facility]) [address] [place] [address] 10/28/2024 09:40:33 10/28/2024 10:18:07 [id number] Christopher Arcos MD [facility] ([facility]) [address] [place] [phone] 11/04/2024 09:06:09 11/04/2024 10:34:47 At increased risk for falls 753669103 Z91.81 Does have increased risk for falls and has fallen at his apartment recently. Patient would benefit from assistive devices, however insurance will not pay for wheelchair , rollator, and cane. Feels that he would mostly benefit from rollator and will send her order over to part of the [employer] equipment for this device. Also has increased risk for falls especially in the shower so a shower chair would be appropriat e. Type 2 tho betes mellitus 10472932 E11.9 Z79.4 Patient reports a history of [...] accurate list can be made. Essential hypertension 84936289 I10 Pressure not well controlled . Start lisinopril . Patient was encouraged to have his blood pressure checked routinely. Schizophrenia 89647558 F 20.9 Patient needs to continue to follow with psychiatry . Will try to find what medication he was placed on during his recent inpatient psych admission. Hyperlipidemia 51594872 E78.5 Screening for malignant neoplasm of colon 014992014 Z12.11 Will send referral to GI for colon cancer screening. Generalize d anxiety disorder 94804925 F41.1 [id number] Christopher Arcos MD [facility] ([facility]) [address] [place] [phone] 11/20/2024 10:31:33 11/20/2024 12:20:02 Parkinson's disease 28867045 G20.A1 Will send referral to neurology. Benign pro static hyperplasia 188345880 N40.1 The patient would like to be [...] Member ID [place] Member ID Guarantor Name 11/20/2024 1 [employer] ([place]IC[place]AC[place]/A DVANTAGE - HMO) Benedicto Amaral [id number] Benedicto Amaral 11/20/2024 2 [place] Benedicto Amaral [id number] Benedicto Amaral Notes Date Note Type Note Provider Name and Address Organization Details Recorded Time 11/20/2024 text/html This is a 64-year-old gentleman comes in today for routine follow-up. [...] So for colonoscopy consult. Christopher Arcos MD [address] [place] [address], [phone], [facility] 11/22/2024 20:15:01
--- NOTE | 2024-11-27 21:51 | PC.NURSE ---
pt stated he would prefer to go home tonight but would like to begin usp placement
[2024-11-27 22:43] LABS: Respiratory Syncytial Virus Ce NEGATIVE (Negative); SARS-CoV-2 PCR NEGATIVE (Negative)
--- NOTE | 2024-12-01 08:31 | DCPLANNER ---
Patient seen on 11/27/24 [facility] - Spoke with Debra in case Management- She states that patient needs to see primary care referral and a level 2- patient will also need a guardian. Patient was placed at [facility] back in October and left on own accord.
== END 2024-11-27 22:14 | disposition home or self-care (01) ==
PROVIDERS: Emergency Medicine; Emergency Provider Student in an Organized Health Care Education/Training Program; PCP Family Medicine
DX: Z03.89 Encounter for observation for other suspected diseases and conditions ruled out (principal); R06.02 Shortness of breath
CPT/HCPCS: 71045; 80306; 81001; 87637; 93005; 99285

== ENCOUNTER 2024-11-29 21:12 | Emergency (ER) | payer OTHER, MEDICAID, SELFPAY ==
--- OUTSIDE RECORDS SUMMARY | 2003-05-13 19:00 | XMS_ITS | Continuity of Care Document ---
Author Name [facility] Address [address] [place] [address] Organization [facility] Care Team Providers Care Newspaper Delivery Driver Name Role Phone [facility] Unavailable Unavailable Allergies, Adverse Reactions, Alerts Substance Category Reaction Severity Reaction type Status Date Reported Comments Source PCN Assertion Drug allergy Active - [facility] OxyCONTIN Assertion Drug allergy Active [facility]
--- OUTSIDE RECORDS SUMMARY | 2022-04-14 10:31 | XMS_ITS | Continuity of Care Document ---
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 [address] [place], [address], [place]. tel:[phone] [facility], [address] Bewtq637M5 0248184QI- [place], [address], [place] tel:[phone] Behavioral Medicine F2 Medication Management (chief complaint)Eder izoaffective disorder (chief complaint)Gen eralized Anxiety Disorder (chief complaint) Schizoaffect filemon disorder, bipolar typeGenerali zed anxiety disorder Sep- 2 Kendrick Cabrera. [address], [place], [address], [place]. tel:[phone] Referring Provider: Deborah Marks, [address] [place], [address] . tel:[phone] [facility], [address] Jpldq613W0 0709327NO- [place], [place], [address], [place] tel:[phone] Vision F1 Encounter for fit/adjst of spectacles and contact lenses Jan- 2 Genia Aponte. [address], [place], [address], [place]. tel:[phone] Referring Provider: Fay Cormier , [address] [place], [address] . tel:[phone] [facility], [address] Wtcpi124R7 8925372DD- [place], [address], [place] tel:[phone] [facility] No Information Jan-0 2 No Information [facility], [address] Qqrco887X9 4191879GXStanford, [place], [address], [place] tel:[phone] Behavioral Medicine F2 Schizoaffect filemon disorder, bipolar type Jan- 2 Kendrick Cabrera. [address], [place], [address], [place]. tel:[phone] Referring Provider: Deborah Marks, [address] [place], [address] . tel:[phone] OFFICE/OUTPA TIENT VISIT EST [facility], [address] Igfjd203T1 5188201NP- [place], [place], [address], [place] tel:[phone] [facility] Est care (chief complaint) Hypertension PrediabetesM ixed hyperlipidem iaEncounter for immunization Jan-0 2 Horacio Blackman. [address] [place], [address], [place]. tel:[phone] Referring Provider: Hiral Leonard, [address] [place], [address]. tel:[phone] [facility], [address] Xorte573B7 0840348SV- [place], [place], [address], [place] tel:[phone] Behavioral Medicine F2 Medication Management (chief complaint)Eder izoaffective disorder (chief complaint)Gen eralized Anxiety Disorder (chief complaint) Schizoaffect filemon disorder, bipolar typeGenerali zed anxiety disorder 2 Kendrick Cabrera. [address], [place], [address], [place]. tel:[phone] Referring Provider: Deborah Marks, [address] [place], [address] . tel:[phone] [facility], [address] Wituu898G2 4516823PI- [place], [place], [address], [place] tel:[phone] Vision F1 blurry vision (chief complaint) Hypermetropi a, bilateralReg ular astigmatism, bilateralPre sbyopiaAge-r elated nuclear cataract, bilateral 2 Genia Aponte. [address], [place], [address], [place]. tel:[phone] Referring Provider: Fay Cormier , [address] [place], [address] . tel:[phone] [facility], [address] Tcskq357G7 9393177PYStanford, [place], [address], [place] tel:[phone] Behavioral Medicine F2 Medication Management (chief complaint)Eder izophrenia (chief complaint)Gen eralized Anxiety Disorder (chief complaint) Undifferenti ated schizophreni aGeneralized anxiety disorder 2 Kendrick Cabrera. [address], [place], [address], [place]. tel:[phone] Referring Provider: Deborah Marks, [address] [place], [address] . tel:[phone] [facility], [address] [place] [address], [address], [place] tel:[phone] Behavioral Medicine F2 Schizoaffect filemon disorder, bipolar type 2 Kendrick Cabrera. [address], [place], [address], [place]. tel:[phone] Referring Provider: Deborah Marks, [address] [place], [address] . tel:[phone] [facility], [address] [place] [address], [address], [place] tel:[phone] Behavioral Medicine F2 Medication Management (chief complaint)Anx iety (chief complaint)und ifferentiated schizophrenia (chief complaint) Generalized anxiety disorderUndi fferentiated schizophreni a 2 Kendrick Cabrera. [address], [place], [address], [place]. tel:[phone] Referring Provider: Deborah Marks, [address] [place], [address] . tel:[phone] OFFICE/OUTPA TIENT VISIT EST [facility], [address] Ujmmb236Z3 8940782LQStanford, [place], [address], [place] tel:[phone] Behavioral Medicine F2 Hyperglycemia (chief complaint) Hyperglycemi aType 2 diabetes mellitus without complication s 2 Dakota Michel. [address] [place], [address], [place]. tel:[phone] Referring Provider: Anand Duncan, [address] [place], [address]. tel:[phone] [facility], [address] Mtdpp241G5 2951888FFStanford, [place], [address], [place] tel:[phone] Behavioral Medicine F2 Medication Management (chief complaint)Eder izophrenia (chief complaint)Gen eralized Anxiety Disorder (chief complaint) Undifferenti ated schizophreni aGeneralized Anxiety Disorder 2 Kendrick Cabrera. [address], [place], [address], [place]. tel:[phone] Referring Provider: Deborah Marks, [address] [place], [address] . tel:[phone] OFFICE/OUTPA TIENT VISIT, [facility], [address] Bnttp355U5 8990553OSStanford, [place], [address], [place] tel:[phone] Behavioral Medicine F2 EPS (chief complaint) Extrapyramid al and movement disorder 2 Dakota Michel. [address] [place], [address], [place]. tel:[phone] Referring Provider: Anand Duncan, [address] [place], [address]. tel:[phone] OFFICE/OUTPA TIENT VISIT [facility], [address] Fegvq105T2 5602366HWStanford, [place], [address], [place] tel:[phone] Behavioral Medicine F2 Counseling (chief complaint) Counseling and coordination of careHypergly cemiaHyponat remia 2 Dakota Michel. [address] [place], [address], [place]. tel:[phone] Referring Provider: Anand Duncan, [address] [place], [address]. tel:[phone] [facility], [address] Gufnt305P9 0580091LH- [place], [place], [address], [place] tel:[phone] Behavioral Medicine F2 Medication Management (chief complaint)Eder izophrenia (chief complaint)Gen eralized Anxiety Disorder (chief complaint) Undifferenti ated schizophreni aGeneralized Anxiety Disorder 2 Kendrick Cabrera. [address], [place], [address], [place]. tel:[phone] Referring Provider: Deborah Marks, [address] [place], [address] . tel:[phone] OFFICE/OUTPA TIENT VISIT [facility], [address] Fvget425V6 1102064POStanford, [place], [address], [place] tel:[phone] Behavioral Medicine F2 Follow Up (chief complaint) Benign prostatic hyperplasia with urinary frequencySch izophrenia, unspecified type 2 Dakota Michel. [address] [place], [address], [place]. tel:[phone] Referring Provider: Anand Duncan, [address] [place], [address]. tel:[phone] OFFICE/OUTPA TIENT VISIT, [facility], [address] Owfgq692Q8 8466858GSStanford, [place], [address], [place] tel:[phone] [facility] Weakness (chief complaint) WeaknessChro lizet cough 2 Bina Aponte. [address], [place], [address], [place]. tel:[phone] Referring Provider: Fadi Curran, [address] [place], [address] . tel:[phone] OFFICE/OUTPA TIENT VISIT EST [facility], [address] Caqqk090R2 7099347TD- [place], [place], [address], [place] tel:[phone] Behavioral Medicine F2 Several Concerns (chief complaint) Acute coughSchizoa ffective disorder, bipolar typePrediabe tesBenign prostatic hyperplasia with urinary frequencyExt rapyramidal and movement disorderRash and other nonspecific skin eruptionHema turia, unspecified 2 Dakota Michel. [address] [place], [address], [place]. tel:[phone] Referring Provider: Anand Duncan, [address] [place], [address]. tel:[phone] [facility], [address] Rnkfw308K3 5041072IC- [place], [place], [address], [place] tel:[phone] Behavioral Medicine F2 Schizoaffect filemon disorder, bipolar type 2 Kendrick Cabrera. [address], [place], [address], [place]. tel:[phone] Referring Provider: Deborah Marks, [address] [place], [address] . tel:[phone] [facility], [address] Zwxot634T6 3238038KP- [place], [place], [address], [place] tel:[phone] Behavioral Medicine F2 Medication Management (chief complaint)Eder izophrenia (chief complaint) Undifferenti ated schizophreni aGeneralized Anxiety Disorder 2 Kendrick Cabrera. [address], [place], [address], [place]. tel:[phone] Referring Provider: Deborah Marks, [address] [place], [address] . tel:[phone] [facility], [address] Mgiem314J2 8382604NG- [place], [address], [place] tel:[phone] [facility] No Information 2 Jo Portillo. [address], [place], [address], [place]. tel:[phone] Referring Provider: Bandar Osorio, [address] [place], [address] . tel:[phone] OFFICE/OUTPA TIENT VISIT, [facility], [address] Juezh579C4 6769591NN- [place], [place], [address], [place] tel:[phone] [facility] cough (chief complaint) CoughNasal congestion with rhinorrhea 2 Jo Portillo. [address], [place], [address], [place]. tel:[phone] Referring Provider: Bandar Osorio, [address] [place], [address] . tel:[phone] PSYTX PT&/FAMILY 30 MINUTES [facility], [address] Legzf449Y8 8979451OO- [place], [place], [address], [place] tel:[phone] [facility] Schizoaffect filemon disorder, bipolar type 2 Myron Houston. [address] [facility] , [place], [place], [address], [place]. tel:[phone] Referring Provider: Celso Sanches, [address] [place], [address] . tel:[phone] OFFICE/OUTPA TIENT VISIT [facility], [address] Llofp552J1 6320160VL- [place], [place], [address], [place] tel:[phone] Behavioral Medicine F2 Tremors (chief complaint) Schizoaffect filemon disorder, bipolar typeType 2 diabetes mellitus without complication , without long-term current use of insulinExtra pyramidal and movement disorderEsse ntial (primary) hypertension Other group home (current) drug therapyPredi abetesTremor , unspecified Apr-0 2 Dakota Michel. [address] [place], [address], [place]. tel:[phone] Referring Provider: Anand Duncan, [address] [place], [address]. tel:[phone] OFFICE/OUTPA TIENT VISIT EST [facility], [address] Tdsap797F8 3664079ZWStanford, [place], [address], [place] tel:[phone] Behavioral Medicine F2 URI (chief complaint) Acute bronchitis due to other specified organisms Mar-3 2 Dakota Michel. [address] [place], [address], [place]. tel:[phone] Referring Provider: Anand Duncan, [address] [place], [address]. tel:[phone] [facility], [address] Peonh964A9 0962385EXStanford, [place], [address], [place] tel:[phone] Behavioral Medicine F2 new psych (chief complaint) Schizoaffect filemon disorder, bipolar type Mar-3 2 No Information OFFICE/OUTPA TIENT VISIT EST [facility], [address] Pafxu233I2 0843374ZABrighton, [place], [address], [place] tel:[phone] Behavioral Medicine F2 Injection (chief complaint) Schizophreni a, unspecified type Mar-2 2 Dakota Michel. [address] [place], [address], [place]. tel:[phone] Referring Provider: Anand Duncan, [address] [place], [address]. tel:[phone] PSYTX PT&/FAMILY 30 MINUTES [facility], [address] Zgors077Z7 4631414WE- [place], [place], [address], [place] tel:[phone] [facility] Schizophreni a, unspecified type 2 Lyle Blunt. [address], [place], [address], [place]. tel:[phone] Referring Provider: Merlene Alvarenga, [address] [place], [address] . tel:[phone] OFFICE/OUTPA TIENT VISIT EST [facility], [address] Kgozp550A0 8826163LJBrighton, [place], [address], [place] tel:[phone] [facility] cough/ congestion (chief complaint)htn (chief complaint) Acute coughNasal congestion with rhinorrheaFl uOther schizophreni aHypertensio n 2 Jo Portillo. [address], [place], [address], [place]. tel:[phone] Referring Provider: Bandar Osorio, [address] [place], [address] . tel:[phone] [facility], [address] Rolfj255G5 3320339JEStanford, [place], [address], [place] tel:[phone] Family Medicine No Information 2 Marjorie Moreno. [address], [place], [address], [place]. tel:[phone] Referring Provider: Tiffanie Amador, [address] [place], [address] . tel:[phone] [facility], [address] Bzjjt467M4 9165695UNBrighton, [place], [address], [place] tel:[phone] [facility] No Information 1 Evan Roque. [address], [place], [address], [place]. tel:[phone] Referring Provider: Mya Gusman, [address] [place], [address] . tel:[phone] OFFICE/OUTPA TIENT VISIT, [facility], [address] Qstpr559M4 5380466QAStanford, [place], [address], [place] tel:[phone] Behavioral Medicine F2 Schizophreni a, unspecified type 1 Evan Roque. [address], [place], [address], [place]. tel:[phone] Referring Provider: Mya Gusman, [address] [place], [address] . tel:[phone] OFFICE/OUTPA TIENT VISIT [facility], [address] Ybskj578H8 6443459IPStanford, [place], [address], [place] tel:[phone] [facility] prediabetes (chief complaint)Silvia k pain (chief complaint)BPH (chief complaint) PrediabetesT ype 2 diabetes mellitus without complication , without long-term current use of insulinChron ic bilateral low back pain with right-sided sciaticaOthe r chronic painBenign prostatic hyperplasia with urinary frequency 1 Evan Roque. [address], [place], [address], [place]. tel:[phone] Referring Provider: Mya Gusman, [address] [place], [address] . tel:[phone] [facility], [address] Aqtti417M4 2623722JTStanford, [place], [address], [place] tel:[phone] [facility] No Information 1 Bina Aponte. [address], [place], [address], [place]. tel:[phone] Referring Provider: Fadi Curran, [address] [place], [address] . tel:[phone] OFFICE/OUTPA TIENT VISIT, EST [facility], [address] Lwllt519K7 6892348JN- [facility], [place], [place], [address], [place] tel:[phone] [facility] Right upper leg pain / burning for the past (chief complaint) Right sided sciatica Feb-2 1 Jaren Larson. [address], [place], [address], [place]. tel:[phone] Referring Provider: Marsha Eastman, [address] [place], [address] . tel:[phone] [facility], [address] Nnsgq698C6 2262985XMStanford, [place], [address], [place] tel:[phone] Behavioral Medicine F2 Schizophreni a, unspecified type Feb- 1 Evan Roque. [address], [place], [address], [place]. tel:[phone] Referring Provider: Mya Gusman, [address] [place], [address] . tel:[phone] [facility], [address] Ujthu783V0 6326007LI- [place], [place], [address], [place] tel:[phone] Family Medicine F1 Change of job 0 1 Health [facility]. [address], [place], [address], [place]. tel:[phone] [facility], [address] Hjcrp215K9 4351569LB- [place], [place], [address], [place] tel:[phone] Behavioral [facility] F2 Schizophreni a, unspecified type Jan- 1 Evan Roque. [address], [place], [address], [place]. tel:[phone] Referring Provider: Mya Gusman, [address] [place], [address] . tel:[phone] OFFICE/OUTPA TIENT VISIT, [facility], [address] Rlffo136Q6 7430965XE- [place], [place], [address], [place] tel:[phone] [facility] Earache (chief complaint) Acute otitis externa of right ear, unspecified type 1 Evan Roque. [address], [place], [address], [place]. tel:[phone] Referring Provider: Mya Gusman, [address] [place], [address] . tel:[phone] OFFICE/OUTPA TIENT VISIT, [facility], [address] Zixyd563X4 3996400KEStanford, [place], [address], [place] tel:[phone] [facility] Schizophreni a, unspecified type 1 Evan Roque. [address], [place], [address], [place]. tel:[phone] Referring Provider: Mya Gusman, [address] [place], [address] . tel:[phone] [facility], [address] Xiehj638J8 5764963IXStanford, [place], [address], [place] tel:[phone] Family Medicine F1 Cough 1 Med [facility]. [address], [place], [address], [place]. tel:[phone] Referring Provider: Theron Jovel, [address] [place], [address] . tel:[phone] OFFICE/OUTPA TIENT VISIT [facility], [address] Zudbz570R2 3780903GEBrighton, [place], [address], [place] tel:[phone] [facility] Viral syndrome (chief complaint)cou gh, congestion x 1 wk (chief complaint) Contact with and (suspected) exposure to other viral communicable diseasesVira l URI 1 [facility]. [address], [place], [address], [place]. tel:[phone] Referring Provider: Theron Jovel, [address] [place], [address] . tel:[phone] [facility], [address] Xjepf037X9 0639052BNStanford, [place], [address], [place] tel:[phone] Family Medicine F1 Unemployment 1 [facility]. [address], [place], [address], [place]. tel:[phone] [facility], [address] Ituoe820I6 6074692GWStanford, [place], [address], [place] tel:[phone] Behavioral Medicine F2 No Information 1 Evan Roque. [address], [place], [address], [place]. tel:[phone] Referring Provider: Mya Gusman, [address] [place], [address] . tel:[phone] [facility], [address] Rfhax931E6 7731263BEStanford, [place], [address], [place] tel:[phone] [facility] behavioral health f/u (chief complaint)dep ression (chief complaint) Schizophreni a, unspecified type 1 Evan Roque. [address], [place], [address], [place]. tel:[phone] Referring Provider: Mya Gusman, [address] [place], [address] . tel:[phone] [facility], [address] Dszoz554D6 0565223VFStanford, [place], [address], [place] tel:[phone] [facility] Schizophreni a, unspecified type 1 Gordon Mya. [address], [place], [address], [place]. tel:[phone] Referring Provider: Mya Gusman, [address] [place], [address] . tel:[phone] [facility], [address] Pdacs705U2 2949693ISStanford, [place], [address], [place] tel:[phone] [facility] Schizoaffecti ve disorder (chief complaint) Hypo-osmolal ity and hyponatremia Other long term care pharmacist (current) drug therapyMixed hyperlipidem iaSchizophre michaela, unspecified type 1 Evan Mya. [address], [place], [address], [place]. tel:[phone] Referring Provider: Mya Gusman, [address] [place], [address] . tel:[phone] [facility], [address] Iovkg855O0 6809889ZQStanford, [place], [address], [place] tel:[phone] [facility] Schizophreni a, unspecified type 1 Evan Roque. [address], [place], [address], [place]. tel:[phone] Referring Provider: Mya Gusman, [address] [place], [address] . tel:[phone] OFFICE/OUTPA TIENT VISIT, EST [facility], [address] Gvqsv882M6 1709103MSStanford, [place], [address], [place] tel:[phone] [facility] knots on legs (chief complaint) Worried well 1 Evan Roque. [address], [place], [address], [place]. tel:[phone] Referring Provider: Mya Gusman, [address] [facility], [place], [address] . tel:[phone] [facility], [address] Qizum544T3 9100507DW- [facility], [place], [place], [address], [place] tel:[phone] [facility] Schizophreni a, unspecified type Apr-2 1 Evan Mya. [address], [place], [address], [place]. tel:[phone] Referring Provider: Mya Gusman, [address] [facility], [place], [address] . tel:[phone] [facility], [address] Ieoss637E1 9141115LI- [place], [place], [address], [place] tel:[phone] [facility] Schizophrenia (chief complaint) Schizophreni a, unspecified type Mar-2 1 Evan Mya. [address], [place], [address], [place]. tel:[phone] Referring Provider: Mya Gusman, [address] [place], [address] . tel:[phone] OFFICE/OUTPA TIENT VISIT, [facility], [address] Hggem633T8 4201020JV- [facility], [place], [place], [address], [place] tel:[phone] [facility] Dizziness (chief complaint) Dizzy Mar-0 1 Evan Mya. [address], [place], [address], [place]. tel:[phone] Referring Provider: Mya Gusman, [address] [place], [address] . tel:[phone] [facility], [address] Acdpg486A6 5441881G[facility], [place], [place], [address], [place] tel:[phone] [facility] Schizophreni a, unspecified type Mar-0 1 Gordon Mya. [address], [place], [address], [place]. tel:[phone] Referring Provider: Mya Gusman, [address] [place], [address] . tel:[phone] [facility], [address] Acqnc339W2 0511255PBBrighton, [place], [address], [place] tel:[phone] [facility] Schizophreni a, unspecified type 1 Gordon Mya. [address], [place], [address], [place]. tel:[phone] Referring Provider: Mya Gusman, [address] [place], [address] . tel:[phone] [facility], [address] Bhyjj755V1 5883039CZStanford, [place], [address], [place] tel:[phone] Family Medicine F1 Schizophreni a, unspecified type 0 Gordon Mya. [address], [place], [address], [place]. tel:[phone] Referring Provider: Mya Gusman, [address] [place], [address] . tel:[phone] [facility], [address] Nckbu619A2 5632073EVStanford, [place], [address], [place] tel:[phone] Behavioral Medicine F2 No Information 0 Gordon Mya. [address], [place], [address], [place]. tel:[phone] Referring Provider: Mya Gusman, [address] [place], [address] . tel:[phone] OFFICE/OUTPA TIENT VISIT, EST [facility], [address] Rybbi171E0 7433629NJ- [place], [place], [address], [place] tel:[phone] [facility] Referral for urologist (chief complaint)bed bugs (chief complaint)Blo od in stool (chief complaint) Urinary frequencyBlo od in stoolInfesta tion by bed bugOther group home (current) drug therapyPredi abetesBenign prostatic hyperplasia with urinary frequencyOth er microscopic hematuria Apr-0 7-202 0 Evan Roque. [address], [place], [address], [place]. tel:[phone] Referring Provider: Mya Gusman, [address] [place], [address] . tel:[phone] [facility], [address] Jzqcz689Y9 9578849ZNStanford, [place], [address], [place] tel:[phone] [facility] Schizophreni a, unspecified type 0 0 Evan Roque. [address], [place], [address], [place]. tel:[phone] Referring Provider: Mya Gusman, [address] [place], [address] . tel:[phone] OFFICE/OUTPA TIENT VISIT EST [facility], [address] Xmvil523P6 0786357VA- [place], [place], [address], [place] tel:[phone] [facility] Rash (chief complaint) Rash and other nonspecific skin eruption Mar-0 2202 0 Bina Aponte. [address], [place], [address], [place]. tel:[phone] Referring Provider: Fadi Curran, [address] [place], [address] . tel:[phone] [facility], [address] Gsqhk540G8 9812735OFBrighton, [place], [address], [place] tel:[phone] [facility] Schizophreni a, unspecified type Feb 0 Gordon Mya. [address], [place], [address], [place]. tel:[phone] Referring Provider: Mya Gusman, [address] [place], [address] . tel:[phone] [facility], [address] Stjrs618L8 3332481IL- [place], [place], [address], [place] tel:[phone] [facility] Schizophreni a, unspecified type Sep-3 0 Gordon Mya. [address], [place], [address], [place]. tel:[phone] Referring Provider: Mya Gusman, [address] [place], [address] . tel:[phone] [facility], [address] Kjvaz311Z8 2829579KZStanford, [place], [address], [place] tel:[phone] [facility] Schizophrenia (chief complaint) Schizophreni a, unspecified typeGenerali zed Anxiety Disorder 0 Gordon Mya. [address], [place], [address], [place]. tel:[phone] Referring Provider: Mya Gusman, [address] [place], [address] . tel:[phone] [facility], [address] Xibwb769T2 1588727LK- [place], [place], [address], [place] tel:[phone] [facility] Generalized Anxiety Disorder Nov- 0 Evan Mya. [address], [place], [address], [place]. tel:[phone] Referring Provider: Mya Gusman, [address] [place], [address] . tel:[phone] [facility], [address] Cunqh636Q3 5767731MTStanford, [place], [address], [place] tel:[phone] Family [facility] F1 Schizophreni a, unspecified type 0 Gordon Mya. [address], [place], [address], [place]. tel:[phone] Referring Provider: Mya Gusman, [address] [place], [address] . tel:[phone] [facility], [address] Sqdyd940T7 9323221ZJStanford, [place], [address]68[address], [place] tel:[phone] Family Medicine F2 schizophrenia (chief complaint) Schizophreni a, unspecified typeGenerali zed Anxiety Disorder 0 Gordon Mya. [address], [place], [address], [place]. tel:[phone] Referring Provider: Mya Gusman, [address] [place], [address] . tel:[phone] [facility], [address] Arlts602X3 7236981ZIBright[place], [place], [address], [place] tel:[phone] Family Medicine F1 hypertension (chief complaint) No Information 0 Gordon Mya. [address], [place], [address], [place]. tel:[phone] Referring Provider: Mya Gusman, [address] [place], [address] . tel:[phone] [facility], [address]qvjc306C2 9712820AABrighton, [place], [address], [place] tel:[phone] Family Medicine F1 Schizophrenia (chief complaint) Schizophreni a, unspecified typeFrequenc y of micturition 0 Gordon Mya. [address], [place], [address], [place]. tel:[phone] Referring Provider: Mya Gusman, [address] [place], [address] . tel:[phone] OFFICE/OUTPA TIENT VISIT, EST [facility], [address] Cganh827X3 5404376QI- [place], [place], [address], [place] tel:[phone] Family Medicine F1 Blood in urine (chief complaint) Frequency of micturition Aug-2 0 Evan Roque. [address], [place], [address], [place]. tel:[phone] Referring Provider: Mya Gordon R, [address] [place], [address] . tel:[phone] [facility], [address] Lidul057A9 7015352IIStan[place], [place], [address], [place] tel:[phone] Family Medicine F1 Hematuria, unspecified 0 Cale Hernandez. [address], [place], [address], [place]. tel:[phone] Referring Provider: David Flores, [address] [place], [address] . tel:[phone] [facility], [address] Dfjdn274H3 3314810BMStanford, [place], [address], [place] tel:[phone] Behavioral Medicine F2 No Information 0 No Information OFFICE/OUTPA TIENT VISIT EST [facility], [address] Aurre263Q6 4072365AZStanford, [place], [address], [place] tel:[phone] Behavioral Medicine F2 Follow Up of Mood (chief complaint)Fol low Up of Go over labs (chief complaint)Fol low Up of BPH (chief complaint)Fol low Up of HTN (chief complaint)Fol low Up of Medication Refills (chief complaint) Benign prostatic hyperplasia with urinary frequencyFre quency of micturitionG eneralized Anxiety DisorderHypo natremiaHype rtensionMixe d hyperlipidem iaSchizophre michaela, unspecified typeOther group home (current) drug therapy Jul-3 0 Aquilino Potter. [address] [place], [place], [address], [place]. tel:[phone] Referring Provider: Abbey Rolle, [address] [place], [address] . tel:[phone] [facility], [address] Iptdt059D0 1070083AIStanford, [place], [address], [place] tel:[phone] Behavioral Medicine F2 Mixed hyperlipidem iaEssential (primary) hypertension Other group home (current) drug therapy Jul-2 0 No Information OFFICE/OUTPA TIENT VISIT, EST [facility], [address] Eupdu214J0 3274395XUStanford, [place], [address], [place] tel:[phone] Behavioral Medicine F2 Schizophrenia (chief complaint)MAIDA (chief complaint)med ication management (chief complaint) Schizophreni a, unspecified type Jul-2 0 No Information [facility], [address] Jxvmv184Z2 2149676LZWiscasset, [place], [address], [place] tel:[phone] [facility] Schizophreni a, unspecified type Jul-0 0 Evan Roque. [address], [place], [address], [place]. tel:[phone] Referring Provider: Mya Gusman, [address] [place], [address] . tel:[phone] [facility], [address] Vrvcf071N9 1255665CYStanford, [place], [address], [place] tel:[phone] [facility] Schizophreni a, unspecified type Fe- 0 Evan Roque. [address], [place], [address], [place]. tel:[phone] Referring Provider: Mya Gusman, [address] [place], [address] . tel:[phone] [facility], [address] Ftwek785R7 8350004TF- [facility], [place], [place], [address], [place] tel:[phone] [facility] [place] No Information 0 Evan Roque. [address], [place], [address], [place]. tel:[phone] Referring Provider: Mya Gusman, [address] [place], [address] . tel:[phone] OFFICE/OUTPA TIENT VISIT, [facility], [address] Wgrbp255X3 8421487SIBrighton, [place], [address], [place] tel:[phone] [facility] [place] Shortness of breath (chief complaint) COPD 0 Evan Roque. [address], [place], [address], [place]. tel:[phone] Referring Provider: Mya Gusman, [address] [place], [address] . tel:[phone] [facility], [address] Rjciq535T9 1667962VJBrighton, [place], [address], [place] tel:[phone] [facility] [place] No Information 0 Evan Roque. [address], [place], [address], [place]. tel:[phone] Referring Provider: Mya Gusman, [address] [place], [address] . tel:[phone] [facility], [address] Oxybf481J4 3186253KIBrighton, [place], [address], [place] tel:[phone] [facility] [place] Follow Up of Schizophrenia (chief complaint) Schizophreni a, unspecified typeGenerali zed Anxiety Disorder May-0 9-202 0 Gordon Mya. [address], [place], [address], [place]. tel:[phone] Referring Provider: Mya Gusman, [address] [place], [address] . tel:[phone] [facility], [address] Tepvq104Q1 7972747ZJStanford, [place], [address], [place] tel:[phone] [facility] Schizophreni a, unspecified type 0 2-202 0 Gordon Mya. [address], [place], [address], [place]. tel:[phone] Referring Provider: Mya Gusman, [address] [place], [address] . tel:[phone] [facility], [address] Bowhy354A8 0030005FOStanford, [place], [address], [place] tel:[phone] [facility] (chief complaint) Other group home (current) drug therapySchiz ophrenia, unspecified typeGenerali zed Anxiety Disorder Apr-0 201 9 Gordon Mya. [address], [place], [address], [place]. tel:[phone] Referring Provider: Mya Gusman, [address] [place], [address] . tel:[phone] [facility], [address] Pgoec984H5 2120337WSStanford, [place], [address], [place] tel:[phone] [facility] [place] Schizophreni a, unspecified type 0 9 Gordon Mya. [address], [place], [address], [place]. tel:[phone] Referring Provider: Mya Gusman, [address] [place], [address] . tel:[phone] OFFICE/OUTPA TIENT VISIT [facility], [address] Ngzyo277D2 4894427TDBrighton, [place], [address], [place] tel:[phone] [facility] [place] Est. Care (chief complaint)Mus culoskeletal pain (chief complaint)Tamela rrhea (chief complaint) Diarrhea, unspecified typeSciatica of left sideSchizoph herb, unspecified typeOther group home (current) drug therapy 9 Evan Roque. [address], [place], [address], [place]. tel:[phone] Referring Provider: Mya Gusman, [address] [place], [address] . tel:[phone] OFFICE/OUTPA TIENT VISIT, [facility], [address] Lhbxl169E3 1425847VAStanford, [place], [address], [place] tel:[phone] Family Medicine F1 Body aches, nausea, (chief complaint) Viral syndrome 9 No Information OFFICE/OUTPA TIENT VISIT, [facility], [address] Jzknz943M7 5464891KUStanford, [place], [address], [place] tel:[phone] Family Medicine F1 Hospital F/U (chief complaint) Hospital discharge follow-up 9 No Information [facility], [address] Vgird240B3 7611326UCStanford, [place], [address], [place] tel:[phone] Family Medicine F1 Generalized Anxiety Disorder 9 No Information OFFICE/OUTPA TIENT VISIT, [facility], [address] Hbfvf454P8 0687517EKStanford, [place], [address], [place] tel:[phone] Family Medicine F1 Exam diarrhea (chief complaint) Diarrhea, unspecified type 9 Bina Aponte. [address], [place], [address], [place]. tel:[phone] Referring Provider: Fadi Curran, [address] [place], [address] . tel:[phone] OFFICE/OUTPA TIENT VISIT, [facility], [address] Nwyrb843Y8 9005882ZTStanford, [place], [address], [place] tel:[phone] Family Medicine F1 Diarrhea (chief complaint) Diarrhea, unspecified type Feb-0 7 9 No Information [facility], [address] Tfdjk978N6 6464183FXStanford, [place], [address], [place] tel:[phone] Family Medicine F1 No Information Feb-0 9 No Information [facility], [address] Vimev077G9 9208250LSStanford, [place], [address], [place] tel:[phone] Family Medicine F1 No Information Feb-0 9 Jose D Armstrong. [address], [place], [address], [place]. tel:[phone] Referring Provider: Nathaniel Jeffery, [address] [place], [address] . tel:[phone] OFFICE/OUTPA TIENT VISIT, [facility], [address] Udhij770K3 2521135KQStanford, [place], [address], [place] tel:[phone] Family Medicine F1 Diarrhea (chief complaint) Diarrhea, unspecified typeTremors of nervous system Sep-3 0 9 No Information OFFICE/OUTPA TIENT VISIT, [facility], [address] Yqhep398J4 0266960WIStanford, [place], [address], [place] tel:[phone] Family Medicine F1 Hospital F/U (chief complaint) Homelessness Hospital discharge follow-up Jan- 9 No Information OFFICE/OUTPA TIENT VISIT, [facility], [address] Odwdf849Z5 6451480GF- [facility], [place], [place], [address], [place] tel:[phone] Family Medicine F1 Invega Injection (chief complaint) Schizophreni a, unspecified type No Information OFFICE/OUTPA TIENT VISIT, [facility], [address] Diidi910J5 7482705WVCushing [facility], [place], [place], [address], [place] tel:[phone] Family Medicine F1 Medication Management (chief complaint)Nee ds Note (chief complaint) Generalized Anxiety DisorderHype rtensionUrin hanane frequencyMix ed hyperlipidem ia No Information [facility], [address] Crqez767Y9 9420995CSCushing [facility], [place], [place], [address], [place] tel:[phone] Family Medicine F1 Pain in left foot 9 Suzanne Rodriguez. [address], [place], [address], [place]. [phone] Referring Provider: Michael Palacios, [address] [place], [address] . tel:[phone] [facility], [address] Xkrom274G3 0323856KJAnderson [facility], [place], [place], [address], [place] tel:[phone] Family Medicine F1 No Information 9 No Information OFFICE/OUTPA TIENT VISIT, [facility], [address] Bupaj170K4 9527880MEStanford, [place], [address], [place] tel:[phone] Family Medicine F1 Left foot pain (chief complaint) Left foot painHomeless ness 9 No Information [facility], [address] Jhfyp961K0 9535331OGBrighton, [place], [address], [place] tel:[phone] Family Medicine F1 Homelessness 9 Health [facility]. [address], [place], [address], [place]. tel:[phone] Referring Provider: [facility], [address] [place], [address] . tel:[phone] OFFICE/OUTPA TIENT VISIT, EST [facility], [address] Bmowf764K7 2974604XL- [place], [place], [address], [place] tel:[phone] Family Medicine Establish Care (chief complaint)walt elessness (chief complaint) Generalized Anxiety DisorderHype rtensionMixe d hyperlipidem iaHomelessne ss No Information [facility], [address] Mkwmy011K5 9158540JIBrighton, [place], [address], [place] tel:[phone] Family Medicine Homelessness 9 Health [facility]. [address], [place], [address], [place]. [phone] Referring Provider: [facility], [address] [place], [address] . tel:[phone] [facility], [address] Avqbm302X1 1364063UI- [place], [place], [address], [place] tel:[phone] Behavior[facility] Integration Other specified counseling No Information [facility], [address] Cigds223Y3 9010878DA- [place], [place], [address], [place] tel:[phone] [facility] No Information 9 Dakota Michel. [address] [place], [address], [place]. tel:[phone] Referring Provider: Anand Duncan, [address] [place], [address]. tel:[phone] [facility], [address] Utbcx608Y6 4262884SP- [facility], [place], [place], [address], [place] tel:[phone] [facility] No Information 9 Dakota Michel. [address] [place], [address], [place]. tel:[phone] Referring Provider: Anand Duncan, [address] [place], [address]. tel:[phone] [facility], [address] Tmpkl598H8 0027214NFBrighton, [place], [address], [place] tel:[phone] [facility] No Information 8 Dakota Michel. [address] [place], [address], [place]. tel:[phone] Referring Provider: Anand Duncan, [address] [place], [address]. tel:[phone] OFFICE/OUTPA TIENT VISIT, [facility], [address] Ivrqb314I2 1086941EPBrighton, [place], [address], [place] tel:[phone] [facility] Est. Care (chief complaint)Chr onic conditions (chief complaint) Hypertension Mixed hyperlipidem iaGeneralize d Anxiety DisorderHypo natremiaUrin hanane frequency 8 Dakota Michel. [address] [place], [address], [place]. tel:[phone] Referring Provider: Anand Duncan, [address] [place], [address]. tel:[phone] [facility], [address] Blasu321C9 1766112BHBrighton, [place], [address], [place] tel:[phone] [facility] No Information 3201 8 Dakota Michel. [address] [place], [address], [place]. tel:[phone] Family History Family Member Type Diagnosis Age At Onset No Information Immunizations Vaccine Date Status Comments Tdap (7 yrs and older) administered Note: VIS: 12/17/20 Patient had no reaction while in clinic. kw ; Source: New Immunization Record Flu Vaccine 6 Months and older administered Source: Public Agenc y Flu Vaccine 6 Months and older administered Note: pt reports at [facility] ; Source: Source Unspecified Payers Payer name Insurance type Covered alliance party ID Authorizbayron quiñones(s) M [facility] Dual Com plete Medica CI [id number] M [place] Medicaid MC [id number] [facility] Dual Com plete Medica [place] [id number] M [place] Medicaid MC [id number] Social History Type Description Quantity Date Captured [...] counseling completed Referral Ordered: Referrals: [facility]. [facility] ordered Referral Ordered: Referrals: Urology. Location: [facility]. Assume care ordered Referral Ordered: Referrals: physcial therapy. Location: [facility]. Evaluate and treat ordered Referral Ordered: Referrals: Location: SDOH (related to Unemployment) ordered Referral Ordered: AARP (related to Unemployment) ordered Referral Ordered: Referrals: Urology. Location: [facility]. Evaluate and treat ordered Referral Ordered: Referrals: Urology ordered Referral Ordered: Referrals: neurologist ordered Referral Ordered: Referrals: [place] ordered Referral Ordered: Referrals: Location: [facility] ordered Referral Ordered: Referrals: Urology. Consult ordered Patient Education Sciatica: Exercises com pleted Patient Education Sciatica: Care Instruct ions completed Patient Education Sciatica: Exercises com pleted Patient Education Low Back Pain: Exercise s completed Future Order: Lab Order [id number] linic/POC ([id number]), Appointment on: , Sent on: Sent Future Order: Lab Order COVID-19 PCR-JV ([id number]), Sent on: Sent Future Order: Radiology Order Ch est 2 Views ([id number]), Ordered on: Ordered History Of Present Illness Encounter Date Complaint History Of Prese nt Illness Medication Management Telephone appointment today.Robert reports he has moved to [place] and is needing his injection sent to the Pharmacy in [place] to make sure he does not miss a dosage. He states he relocated there with his brother.He states he could not take it anymore in [place], and needed to get out of town.He denies SI/HI/AH/VH.He has no complaints or concerns at this time.Plans on establishing care in [place] for Psychiatric Care. Schizoaffective disorder This is [...] denies any associated symptoms. Generalized Anxiety Disorder [facility] care Patient here todaniel rodriguez to establish careH: Parkinson's diseaseMedications: reviewed Allergies: reviewed Social history: homeless Patient has issues with prediabetes, hyperlipemia, schizophrenia, BPHVocation: He is taoism, he is currently homeless Social Support: He has a sister in [place] is from [place]. 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 Patient is stimulated with Manic [...] He would like to see urology at [facility] for his bladder and BPH- [...] with a friend. Was recently seen in [facility] and encouraged to follow up with PCP. When discussing appointment with patient today, he states everything is fine. He denies SI/HI/AH/VH. He feels his tremors have decreased with cogentin. He is slightly dishevel in appearance. He has a laundry bag with him today, and states he is going to go to the operations processor after this appointment. He is alert and [...] Tele-Session don e due to contract with [place] to provide off-site services; Verbal consent from Patient received; All Medications to be e-scribed through NEXT GEN -Chief Complaint / Establish care - ADMITTED TO [facility] FOR 10 DAYS IN JULY 2021 FOR REPORTING SUICIDAL THOUGHTS -PERRECORD - HAS HISTORY OF VERBAL AND PHYSICAL AGGRESSION - INNAPPROPRIATE SEXUAL BEHAVIORS - MANIC AND POSSIBLE MANIPULATIVE BEHAVIORS AND NON COMPLIANCE TO TREATMENT - HOMELESS -WITH POOR INSIGHT - [facility] DISCHARGED ON INVEGA SUSTENNA 156MG IM [...] DENIED SOCIAL HISTORYLiving Situation -[facility] Martial Situation-; Children - NONE Highest Education- 6TH GRADE Occupation/Work History- Disabled; 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 Has a hx of hematuria. Has hx [...] he is seeing a urologist-Dr. Campuzano at [facility]. Pt reports that he would like to change clinics. He has surgery for his bladder in December and is wanting to see a different provider and would like to go to [facility]. Blood in stool Pertinent negati ves include abdominal distention, abdominal pain, bloating, change in bowel habits, constipation, decreased appetite, diarrhea, dysphagia, heartburn, nausea, perirectal itching, rectal pain, rectal pain associated with bleeding, vomiting and weight loss. Additional information: Pt had colonoscopy at [facility] last year. Has had this off and [...] of Flomax and refer for Urologist at [facility] at this time. WBC is low [...] medication. No SI or HI. 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 Shortness of breath In the inter scar [...] behaviors were discussed; illegal drugs, prescription drugs, xycu-cfb-mhmgjyp drugs, gambling, alcohol, tobacco and vaping.Reports alcoholism, [...] of the time. HTNBPHHyperlipidemiaSocial History:[facility] Social Supports were discussed; roman catholic, family/friendships, therapy, and cultural/ethnic/community supports. I believe in GodPatient reports having support from God, ERROL-Cr, familySexual Orientation: born male, ID male, heterosexualMarital Status: girlfriendNumber of times /: 1/0/is . Children: noneMilitary Service: deniesLegal Information (guardian, probation, parole):Reports hx of incarcerationHas current charge for trespassing [facility] History:Denies inutero exposure to drugs/alcoholMet milestones on [...] Care PHQ 0.Seeing a n eurologist at [facility]-for parkinsons dslast colonoscopy was 5 years ago-has [...] diarrhea today. 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 Pt requesting OTC medications prescribed. Diarrhea [...] note stati james he was here for GITR. Left foot pain Location: left f oot. Establish Care Pt needing to es tablish care. homelessness Pt needing help getting medications cannot afford. Est. Care The symptoms are reported as being moderate. The symptoms occur daily. He states the symptoms are chronic. Benedicto Amaral is a 58 year old male that is a Resident at [facility]. He has been there for a [...] cations without change. E-scribed Invega Injection to [facility]. 2. Will be seen again if [...] to the clinic in 3 months for V3gCbvgtzxl good foot hygiene, wear closed toed shoes. [...] if conditions worsen. 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 Continue [...] Related t o Undifferentiated schizophrenia referral to [facility]- he has seen urology before [...] likely NEG today Related to Acute cough Dietary management e ducation, guidance, and counseling Related to Acute cough Patient advised about exercise R elated to Acute cough Weight control education Related to Acute cough Hypertension education Related t o Acute cough 1. Continue all medi cations [...] if conditions worsen. 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 Pt ad vised [...] complication, without long-term current use of insulin Dietary management e ducation, guidance, and counseling Related to Schizoaffective disorder, bipolar type Patient advised about exercise R elated to Schizoaffective disorder, bipolar type Weight control education Related to Schizoaffective disorder, bipolar type Hypertension education Related t o Schizoaffective disorder, bipolar type Drink plenty of [...] next injection Related to Schizophrenia, unspecified type Dietary management e ducation, guidance, and counseling Related to Schizophrenia, unspecified type Patient advised about exercise R elated to Schizophrenia, unspecified type Weight control education Related to Schizophrenia, unspecified type Hypertension education Related t o Schizophrenia, unspecified type Pt will not take [...] hurt himself or others. Appointment made with [facility]. Related to Other schizophrenia Positive for flu [...] wishes to have this completed at the [place] location due to nurse preference. I offered [...] and recommendations for f/u. Related to Other long term care pharmacist (current) drug therapy as above Related to Predi abetes Pt responded well to treatment given in [place]. Reviewed methods to eradicate in apartment, erp developer is scheduled for tomorrow. Pt is aware [...] f/u.Pt requests to move urology services to [facility]. ROR for Dr. Ortega's office to be [...] PRN with any issues Related to Other group home (current) drug therapy Weight control education Related to Other group home (current) drug therapy Hypertension education Related t o Other long term care pharmacist (current) drug therapy 1. Patient will be [...] Bus passes given. Related to Walt elessness [facility] at bedside. Document provided for Viviana Norton. Follow up in six months. Related to Generalized Anxiety Disorder Medications refilled. Related to Urinary frequency Keep taking your med ications as directedDiet and exercise is garcia to overall healthA variety of fruits and vegetables, decrease salt intake, as well as exercise 30 minutes a majority of the weekCheck your blood pressure occasionallyReturn in 3-6 months for labs and another HTN visit Related to Hypertension Hypertension education Related t o Hypertension Referral for assiste d living per nurse patient care assistant. Related to Homelessness Xray left foot today will call with results. Related to Left foot pain Resources provided. Education/counseling provided. Transpiration provided. Related to Homelessness Medications refilled. Related to Hypertension Medications refilled. Related to Generalized Anxiety Disorder Medications refilled. Related to Mixed hyperlipidemia We will DC Flomax du e to [...] BMI under 30% Related to Mixed hyperlipidemia Keep taking your med ications as directedDiet and exercise is garcia to overall healthENCOURAGE WEIGHT REDUCTIONA variety of fruits and vegetables, decrease salt intake, as well as exercise 30 minutes a majority of the weekCheck your blood pressure occasionallyReturn in 3-6 months for labs and another HTN visitWe will start Metoprolol Succ. 50mg dailyStop lisinopril due to Hyponatremia Related to Hypertension Take your medication as directedAfter a start or change in antidepressant medication, it can take up to 4 weeks to notice the full effectsWe discussed the side effects and projected outcome of starting this medication (patient agreeable to plan)Stop taking the medication if you stat to develop SI or HI, notify someone and either call 911 or [facility]-6 weeks for an update on how you are feelingReturn to the clinic as neededWe are adding Seroquel at night 50mg for a Mood TrialNo medications changes at this time. Related to Generalized Anxiety Disorder Dietary management e ducation, guidance, and counseling Related to Hypertension Patient advised about exercise R elated to Hypertension Weight control education Related to Hypertension Hypertension education Related t o Hypertension Assessments Type Assessment Date No Information Patient Care Teams Name Effective Dates (start - stop) Status Members No Information
[2024-08-12 08:41] VITALS: BP 143/101; BMI 36.0
[2024-11-29 21:20] VITALS: BMI 29.2
[2024-11-29 21:23] VITALS: BP 152/92; PULSE 82; RESP 20; TEMP 37.1; O2SAT 94
--- OUTSIDE RECORDS SUMMARY | 2024-11-29 21:32 | XMS_ITS | Encounter Summary ---
Author Organization [facility] Address 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
--- OUTSIDE RECORDS SUMMARY | 2024-11-29 21:32 | XMS_ITS | Clinical Summary ---
Author Organization [facility] Address 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 06/13/2021 Benign prostatic [...] Type Department Care Team Description 11/27/2024 Abstract [facility] [address] [place] [address] Brad Correa MD 11/25/2024 Telephone [facility] [address] [place] [address] Provider, Abstract urology referral appointment 11/25/2024 Abstract [facility] [place] [address] Provider, Abstract from Last 3 Months Immunizations [...] on file 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 Gender Identity Not on file Sexual Orientation [...] 19 Colorectal Cancer Screening 04/30/2024 [place] ([place]) Prev entative Visit/Annual Wellness Visit 05/14/2024 09/04/2022 INFLUENZA VACCINE (#1) 2024 08/03/2022, 2018 Procedures Procedure Name Priority Date/Time Associated Diagnosis Comments COLONOSCOPY REPORT 04/30/2019 4:17 PM 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 from Last 3 Months or Most Recently Relevant to Health Maintenance Results * COLONOSCOPY REPORT (04/30/2019 4:17 PM 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) Teofilo Graves MD GI PROCEDURE ORDERABL ES Final Result from Last 3 Months or Most Recently Relevant to Health Maintenance Insurance MEDICAID [facility] [facility] DUAL COMPLETE HMO [facility] [id number] RX [employer] Member Subscriber Plan / Payer (Ef fective 2021-Present) Name:Benedicto Amaral Relation to Subscriber:Self Name:Benedicto Amaral Subscriber ID:Not on file Payer ID:Not on file Group ID:[id number] Type:RX Medicare Part D Address: [place] [facility] MEDICARE [id number] Advance Directives For more information, please contact: [phone] * Full Code (Latest Code Status on [...]
--- OUTSIDE RECORDS SUMMARY | 2024-11-29 21:33 | XMS_ITS | Data Portability ---
Author Organization [facility] Address [address] [facility] [address] [place] [address] Care Team Providers Care Entry Level Sales Consultant Name Role Phone CHRISTOPHER ARCOS Primary Care Provider [phone] Assessment Encounter Date Assessment Date Assessment LastModified [...] A1C/hemog lobin total, QN, blood 2024 025 [facility], [address], [place], [address], 11/04/2024 11:07:15 CMP, serum or plasma 2024 025 [facility], [address], [place], [address], 11/04/2024 11:47:15 microalbu min/creat inine, mass ratio, urine 2024 025 [facility], [address], [place], [address], 11/05/2024 06:21:07 lipid panel, blood 2024 025 [facility], [address] [facility], [place], [address], 11/04/2024 11:47:[address] referral 2024 025 [email or web address] [facility], [address] [place], [address], 11/27/2024 17:37:28 urologist referral 2024 025 [email or web address] [facility], [address] [place], [address], 11/28/2024 14:54:51 gastroent erologist referral 2024 025 [email or web address] Julian So MD, [address] [place] [address], [facility] [address], [place], [address], 11/28/2024 13:06:55 Procedures None recorded. Surgeries None recorded. Imaging XR, pelvis [address] ([facility]), [address] [place] [address], [phone], 10/24/2024 13:49:33 XR, hip, unilatera l [address] ([facility]), [address] [place], [address], 10/24/2024 13:49:34 XR, knee, 3 view [address], [address] [place] [address], [address], 10/24/2024 13:49:34 Medication Orders tamsulosi n 0.4 mg capsule 2024 025 [id number], [address], [place], [address], 11/20/2024 11:52:25 Patient TargetsNo targets recorded. Patient InstructionsNo instructions recorded. Reason for Referral Banana Ripening Room Supervisor Referral for Screening for malignant neoplasm of colon Referring Physician: Christopher Arcos [facility], Encounter Date: 11/04/2024 Neurologist Referral for Par kinson's disease Referring Physician: Christopher Arcos [facility], Encounter Date: 11/20/2024 Urologist Referral for Benig n prostatic hyperplasia Referring Physician: Christopher Arcos [facility], Encounter Date: 11/20/2024 Results Created Date Observation Date Name Description Value Unit Range Abnormal Flag Note LastModifiedBy Organization Detail LastModifiedTime 11/05/1911/04/2024 HBA1C hemaglobin A1C 6.3 4.2-6. 5 Not Available [facility] [address] [facility] [address], [place], [address], 11/04/2024 11:07:15 11/05/1911/04/2024 CMP (MALE ) glucose 105.0 mg/dL 60.0-9 9.0 high Not Available [facility] [address] [facility] [address], [place], [address], 11/04/2024 11:47:15 11/05/19 25 11/04/2024 CMP (MALE ) BUN (blood urea nitrogen) 16.0 mg/dL 10.0-2 6.0 Not Available [facility] [address] [facility] [address], [place], [address], 11/04/2024 11:47:15 11/05/19 25 11/04/2024 CMP (MALE ) creatinine (serum) 0.8 mg/dL 0.4-1. 5 Not Available [facility] [address] 1, [place], [address], 11/04/2024 11:47:15 11/05/19 25 11/04/2024 CMP (MALE ) BUN/creatini ne ratio 20.00 ratio Not Available [facility] [address] 1, [place], [address], 11/04/2024 11:47:15 11/05/19 25 11/04/2024 CMP (MALE ) eGFR calculated 104.1 Not Available [facility] [address] 1, [place], [address], 11/04/2024 11:47:15 11/05/19 25 11/04/2024 CMP (MALE ) total protein 6.5 g/dL 6.0-8. 5 Not Available [facility] [address] 1, [place], [address], 11/04/2024 11:47:15 11/05/19 25 11/04/2024 CMP (MALE ) total bilirubin 0.9 mg/dL 0.2-1. 3 Not Available [facility] [address] [address], [place], [address], 11/04/2024 11:47:15 11/05/19 25 11/04/2024 CMP (MALE ) albumin 3.8 g/dL 3.5-5. 5 Not Available [facility] [address] 1, [place], [address], 11/04/2024 11:47:15 11/05/19 25 11/04/2024 CMP (MALE ) globulin 2.7 calc Not Available [facility] [address] 1, [place], [address], 11/04/2024 11:47:15 11/05/19 25 11/04/2024 CMP (MALE ) AST (SGOT) 25.0 U/L 0.0-46 .0 Not Available [facility] [address] [facility] [address], [place], [address], 11/04/2024 11:47:15 11/05/19 25 11/04/2024 CMP (MALE ) altv (SGPT) 16.0 U/L 13.0-6 9.0 normal Not Available [facility] [address] [facility] [address], [place], [address], 11/04/2024 11:47:15 11/05/19 25 11/04/2024 CMP (MALE ) A/G ratio 1.4 ratio Not Available [facility] [address] [facility] [address], [place], [address], 11/04/2024 11:47:15 11/05/19 25 11/04/2024 CMP (MALE ) ALP phos 71.0 U/L 30.0-1 40.0 normal Not Available [facility] [address] [facility] [address], [place], [address], 11/04/2024 11:47:15 11/05/19 25 11/04/2024 CMP (MALE ) calcium 8.6 mg/dL 8.4-10 .5 Not Available [facility] [address] [facility] [address], [place], [address], 11/04/2024 11:47:15 11/05/19 25 11/04/2024 CMP (MALE ) sodium 127.0 mmol/ L 136.0- 145.0 low Not Available [facility] [address] [facility] [address], [place], [address], 11/04/2024 11:47:15 11/05/19 25 11/04/2024 CMP (MALE ) potassium 3.9 mmol/ L 3.5-5. 1 Not Available [facility] [address] [facility] [address], [place], [address], 11/04/2024 11:47:15 11/05/19 25 11/04/2024 CMP (MALE ) chloride 91.0 mmol/ L 98.0-1 10.0 abnormal Not Available [facility] [address] [facility] [address], [place], [address], 11/04/2024 11:47:15 11/05/19 25 11/04/2024 CMP (MALE ) C02 31.0 mmol/ L 22.0-3 1.0 Not Available [facility] [address] [facility] [address], [place], [address], 11/04/2024 11:47:15 11/05/19 25 11/04/2024 CMP (MALE ) anion gap 5.0 calc Not Available [facility] [address] [facility] [address], [place], [address], 11/04/2024 11:47:15 11/05/19 25 11/04/2024 CMP (MALE ) osmolality 264.6 calc Not Available [facility] [address] [facility] 1, [place], [address], 11/04/2024 11:47:15 11/05/19 25 11/04/2024 LIPID PROFI LE (MALE ) cholesterol 122.0 mg/dL 0.0-20 0.0 Not Available [facility] [address] [facility] [address], [place], [address], 11/04/2024 11:47:17 11/05/19 25 11/04/2024 LIPID PROFI LE (MALE ) trig 188.0 mg/dL 0.0-15 0.0 high Not Available [facility] [address] [facility] [address], [place], [address], 11/04/2024 11:47:17 11/05/19 25 11/04/2024 LIPID PROFI LE (MALE ) HDL - direct 29.0 mg/dL >40.0 low Not Available [facility] [address] [facility] [address], [place], [address], 11/04/2024 11:47:17 11/05/19 25 11/04/2024 LIPID PROFI LE (MALE ) VLDL - direct 37.6 mg/dL Not Available [facility] [address] [facility] [address], [place], [address], 11/04/2024 11:47:17 11/05/19 25 11/04/2024 LIPID PROFI LE (MALE ) LDL - direct 55.4 mg/dL 0.0-13 0.0 Not Available [facility] [address] [facility] [address], [place], [address], 11/04/2024 11:47:17 11/05/19 25 11/05/2024 ALBUM IN, RANDO M URINE W/CRE ATINI NE creatinine, random urine 147 mg/dL 20-320 normal Not Available [email or web address] [address] [place], [address], 11/05/2024 06:21:07 11/05/1911/05/2024 ALBUM IN, RANDO M URINE W/CRE ATINI NE albumin, urine 0.6 mg/dL see note: normal Refer ence Range : Refer ence Range Not estab lishe d Not Available [facility] [address] [place], [address], 11/05/2024 06:21:07 11/05/19 25 11/05/2024 ALBUM IN, [...] a diagn ostic categ ory. Not Available [facility] [address] [place], [address], 11/05/2024 06:21:07 10/25/19 25 10/23/2024 XR, pelvi s No observ ation record ed. [facility] [address] [place], [address], 10/26/2024 11:36:09 10/25/19 25 10/23/2024 XR, hip, unila teral No observ ation record ed. [facility] [address] [place], [address], 10/26/2024 11:36:10 10/25/19 25 10/23/2024 XR, knee, 3 view No observ ation record ed. [facility] [address] [place], [address], 10/26/2024 11:36:10 Result Notes None recorded. Problems Name Problem SNOMED Code Status Onset Date Resolution Date Notes Provider Name and Address Organization Details Recorded Time Psychotic disorder 36452382 Active 2022 REGI agustin ND Betty Chan [facility], [facility] 3 11:37:18 Parkinson's disease 94144968 Active 2022 Christopher Arcos MD [address] [place] [address], [address] , [facility] 5 11:49:36 Benign prostatic hyperplasia 075903156 Active 2022 REGI agustin, [facility] 3 11:37:18 Bipolar disorder 47802218 Active 2022 REGI agustin, [facility] 3 11:37:17 Lower urinary tract symptoms due to benign prostatic hypertrophy 8159320737907 1 Active 2022 REGI agustin, [facility] 3 11:37:18 Essential hypertensio n 46880073 Active 2022 REGI CHENEdilberto agustin, [facility] 3 11:37:18 History of myocardial infarction 648015515 Active 2022 REGI CHENEdilberto agustin, [facility] 3 11:37:18 Schizophren ia 16941716 Active 2022 REGI agustin, [facility] 3 16:42:51 Hyperglycem ia 67450315 Active 2022 REGI CHENG nikole, [facility] 3 16:43:01 Allergic rhinitis 18310884 Active 2022 REGI CHENEdilberto agustin, [facility] 3 16:42:56 Acquired hearing loss 581859855 Active 2022 REGI CHENG nikole, [facility] 3 16:42:48 Hyperlipide tyler 13647548 Active 2022 Christopher Arcos MD [address] [place] [address], [phone] [place] [address], L[facility]C. 3 10:13:33 Fear of heights 205979366 Active 2022 Christopher Arcos MD [address] [place] [address], [address], [facility], L.L.CAnson 3 10:13:55 Contusion of left knee 0924782470647 9109 Active 2024 Christopher Arcos MD [address] [place] [address], [address], [facility], L[facility]sonLNiles 5 18:55:08 Type 2 diabetes mellitus 67390865 Active 2024 Christopher Arcos MD [address] [place] [address], [address], [facility], L.L.CAnson 5 10:19:33 Generalized anxiety disorder 74387075 Active 2024 Christopher Arcos MD [address] [place] [address], [phone], [facility], L.LAnsonCAnson 5 11:54:36 Problem Notes None recorded. Procedures Surgical History Date Name Laterality Status Provider Name and Address Organization Details Recorded Time Gallbladder Surgery completed Paulalane Borrero [facility], [facility]son 11/20/2024 11:38:20 Imaging Results None recorded. Procedure Notes None recorded. Medical Equipment None Reported. Allergies Allergen ID Allergen Name Allergen Category Reaction Reaction Severity Criticality Documentation Date Start Date Code Code System Note Provider Name and Address Organization Details Recorded Time 4597 Product containin g penicilli n (product) medicatio n Not available Not available Not available 11/01/2022 02623 8001 SNOMED REGI ALFEdilberto agustin [facility], L.L.CAnson 3 10:01:00 4598 Oxycontin medicatio n Not available Not available Not available 11/01/2022 83705 6 RxNorm REGI ALFEdilberto agustin [facility], L.L.CAnson 3 10:01:10 27627 lithium Not available Not available Not available Not available 04/02/2023 6448 RxNorm MCPRERNA agustin [facility], L.LNiles 3 09:45:23 39451 lactose food,medi cation Not available Not available Not available 11/20/2024 6211 RxNorm Paula Borrero nikole [facility], [facility] 5 11:37:22 Medications Name Sig [...] Relief 50 mcg/actuati on nasal spray,suspe nsion Beulah 1 spray every day by intranasa l route. 10/17 completed Not Available Not Available Not Available Vitals Date Recorded Body height Body mass index (BMI) Body weight Provider Name and Address Organization Details Last Updated DateTime 10/17/2024 180.34 cm 32.4 kg/m2 221161.43 g Barb Lackey [facility] 10/17/2024 09:53:02 Date Recorded Body height Body mass index (BMI) Body weight Oxygen saturation Oxygen saturation in Arterial blood by Pulse oximetry Heart rate Respiratory rate Body temperature Systolic And Diastolic Provider Name and Address Organization Details Last Updated DateTime 180.34 cm 32.1 kg/m2 123050. 25 g 97 % 97 % 105 /min 18 /min 98.2 [degF] 140/90 mm[Hg] Barb Lackey [facility] 10:51:14 Date Recorded Body height Body mass index (BMI) Body weight Body temperature Oxygen saturation Oxygen saturation in Arterial blood by Pulse oximetry Heart rate Systolic And Diastolic Provider Name and Address Organization Details Last Updated DateTime 180.34 cm 33.5 kg/m2 359191. 17 g 97.6 [degF] 94 % 94 % 103 /min 144/78 mm[Hg] Renettazulema Herbert [facility] 09:20:19 Social History Question Answer Notes LastModified by Sova Details LastModified Time Tobacco Smoking Status Former Smoker [facility] 04/02/2023 09:47:08 What Is Your Level Of Caffeine Consumption? Occasional Information not available 04/02/2023 What Was The Date Of Your Most Recent Tobacco Screening? 11/04/2024 [email or web address] Information not available 11/04/2024 What Is Your Relationship Status? Information not available 04/02/2023 Sex: Unknown Functional Status Question Answer Note LastModified by Sova Details LastModified Time What is your level [...] 50 mcg/0.25mL dose 2 completed REGI agustin, [facility] 02/04/2023 16:43:22 COVID-19, mRNA, LNP-S, bivalent, PF, 30 mcg/0.3 mL dose 2 completed REGI agustin, [facility] 02/04/2023 16:43:22 influenza, unspecified formulation 5 completed REGI CHENG nikole [facility] 02/04/2023 16:43:22 Tdap 6 completed REGI CHENG null, [facility] 02/04/2023 16:43:22 Tdap 2 completed REGI CHENG nikole, [facility] 02/04/2023 16:43:22 Tdap 2 completed REGI CHENG null, [facility] 02/04/2023 16:43:22 Influenza, split virus, trivalent, PF 7 completed REGI CHENG null, [facility] 02/04/2023 16:43:22 Hep A, adult 9 completed REGI MILNER null, [facility] 02/04/2023 16:43:22 Hep A, adult 9 completed REGI CHENG null, [facility] 02/04/2023 16:43:22 Influenza, split virus, quadrivalent, PF 9 completed REGI agustin [facility] 02/04/2023 16:43:22 Influenza, split virus, quadrivalent, PF 9 completed REGI agustin, [facility] 02/04/2023 16:43:22 Influenza, split virus, quadrivalent, PF 2 completed REGI agustin [facility] 02/04/2023 16:43:22 COVID-19, mRNA, LNP-S, PF, 50 mcg/0.5 mL 3 completed REGI agustin [facility] 06/01/2023 19:12:57 Influenza, recombinant, trivalent, PF 4 completed Not Available [facility] 11/20/2024 10:32:15 Influenza, split virus, quadrivalent, PF 3 completed REGI agustin [facility] 02/05/2023 11:06:09 Past Encounters Encounter ID Performer Location Encounter Start Date Encounter Closed Date Diagnosis/Indication Diagnosis SNOMED-CT Code Diagnosis ICD10 Code Diagnosis Note [id number] Christopher Arcos MD [facility] ([facility]) [address] [place] [id number] 11/01/2022 09:45:19 11/01/2022 12:47:18 Lower urinary tract symptoms due to benign prostatic hypertrophy 2893734462 9101 N40.1 Parkinson's disease 4904 9000 G20 Psychotic disorder 55790 001 F29 Bipolar disorder 4942668 4 F31.9 Essential hypertension 35736694 I10 History of myocardial infarction 103421970 I25.2 [id number] Christopher Arcos MD [facility] ([facility]) [address] [place] [id number] 12/20/2022 09:35:24 12/20/2022 10:38:21 Essential hypertension 65873963 I10 Benign pro static hyperplasia 845999717 N40.1 Schizophrenia 45150218 F 20.9 Bipolar disorder 8370616 4 F31.9 Hyperglycemia 14636694 R 73.9 Allergic rhinitis 578218 04 J30.9 Acquired hearing loss 72 6639177 H91.90 [id number] Christopher Arcos MD [facility] ([facility]) [address] [place] [id number] 02/05/2023 09:36:55 02/05/2023 10:48:47 Benign prostatic hyperplasia 193570342 N40.1 Patient is awaiting urology evaluation and treatment. Essential hypertension 91641085 I10 Blood pressure is mildly elevated today.. Patient will monitor blood pressure and report if unable to control or if they develop new symptoms. Schizophrenia 60758188 F 20.9 Patient is doing well on current medication s. Continue follow-ups with psychiatry [id number] Christopher Arcos MD [facility] ([facility]) [address] [place] [id number] 04/02/2023 09:37:06 04/02/2023 15:33:03 Adult health examination 505535423 Z00.00 We will check labs today. Patient has been having some glucose issues. Patient was encouraged to eat a well-terrell isaias diet and exercise 30 minutes daily. Essential hypertension 22709393 I10 Pressure not well controlled . Start lisinopril . Patient was encouraged to have his blood pressure checked routinely. Hyperlipidemia 55873605 E78.5 Fear of heights 05793921 1 F40.241 We will provide a letter stating that he has fair hygiene to consider weaning him to a lower level apartment if available. [id number] JAY RAMSEY [facility] ([facility]) [address] [place] [id number] 10/17/2024 09:47:49 10/17/2024 11:03:51 [id number] Christopher Arcos MD [facility] ([facility]) [address] [place] [id number] 10/23/2024 10:42:36 10/24/2024 13:49:33 Fall W19.XXXA Trays were obtained of the pelvis, hip, and knee and reviewed by me. No evidence of fracture. The patient does have significan t degenerati ve changes noted within his back. Mild arthritis. Contusion of left knee 7906415192 9125709 S80.02XA The patient does have evidence of significan t contusion and bleeding under the skin. Encouraged the patient to continue ambulating and mobilizing . Follow-up if symptoms do not improve. [id number] JAY PETER [facility] ([facility]) [address] [place] [id number] 10/28/2024 09:40:33 10/28/2024 10:18:07 [id number] Christopher Arcos MD [facility] ([facility]) [address] [place] [id number] 11/04/2024 09:06:09 11/04/2024 10:34:47 At increased risk for falls 111473544 Z91.81 Does have increased risk for falls and has fallen at his apartment recently. Patient would benefit from assistive devices, however insurance will not pay for wheelchair , rollator, and cane. Feels that he would mostly benefit from rollator and will send her order over to part of the [employer] equipment for this device. Also has increased risk for falls especially in the shower so a shower chair would be appropriat e. Type 2 tho betes mellitus 35534986 E11.9 Z79.4 Patient reports a history of [...] accurate list can be made. Essential hypertension 28340944 I10 Pressure not well controlled . Start lisinopril . Patient was encouraged to have his blood pressure checked routinely. Schizophrenia 50328035 F 20.9 Patient needs to continue to follow with psychiatry . Will try to find what medication he was placed on during his recent inpatient psych admission. Hyperlipidemia 64301915 E78.5 Screening for malignant neoplasm of colon 897061609 Z12.11 Will send referral to GI for colon cancer screening. Generalize d anxiety disorder 06244517 F41.1 [id number] Christopher Arcos MD [facility] ([facility]) [address] [place] [id number] 11/20/2024 10:31:33 11/20/2024 12:20:02 Parkinson's disease 39243258 G20.A1 Will send referral to neurology. Benign pro static hyperplasia 537761514 N40.1 The patient would like to be [...] Franklin Member ID Guarantor Name 11/17/2024 [place] [facility] Benedicto Amaral [id number] Benedicto Amaral 11/24/2024 1 [facility] [place] DV[place] - [place]) Benedicto Amaral [id number] Benedicto Amaral 10/17/2024 1 [place] [id number] Benedicto Amaral [id number] Benedicto Amaral 11/17/2024 2 [place] Benedicto Amaral [id number] Benedicto Amaral Notes Date Note Type Note Provider Name and Address Organization Details Recorded Time 10/23/2024 text/html walk in patientp atient is here today for left hip pain, and left knee pain after a fell he thinks it was weeks ago. Christopher Arcos MD [address] [place] [address], [phone], [facility], [facility] 10/24/2024 11:26:50 11/04/2024 text/html Annual WellnessReported bypatient.Diet [...] weeks prior at his place of living, [facility]. He would like to go to a [...] hospital time in a psych facility at [facility]. Patient states that they started him on new medications but he does not recall what they were. Christopher Arcos MD [address] [place] [address], [phone], [facility] 11/05/2024 11:55:05 11/20/2024 text/html This is [...] So for colonoscopy consult. Christopher Arcos MD [address] [place] [address], [phone], [facility] 11/22/2024 20:15:01
--- OUTSIDE RECORDS SUMMARY | 2024-11-29 21:33 | XMS_ITS | Patient Health Record ---
Author Organization [facility] Address [address] [place] [address] Care Team Providers Care Quality Control Clerk Name Role Phone Shemar Arcos MD Primary Care Provider UnavailMarlene Petty Unavailable [phone] Sb Hutchison Unavailable [phone] Reason For Referral No Information Problems Problem Type SNOMED Code ICD Code Onset Dates Problem Status W/U Status Risk Notes Problem Schizophrenia (03967588) Schizophrenia, unspecified (F20.9) Active confirmed Problem Severe recurrent major depression with psychotic features (22398000) Major depressive disorder, recurrent, severe with psychotic symptoms (F33.3) Active confirmed Problem Adjustment disorder with mixed disturbance of emotions AND conduct (51357617) Adjustment disorder with mixed disturbance of emotions and conduct (F43.25) Active confirmed Problem Anxiety (31985106) Anxiety (F41.9) Active confirmed Problem Insomnia (251251340) Insomnia (G47.00) Active confirmed Problem Psychosis (28856046) Psychosis (F29) Active confirmed Problem Moderate recurrent major depression (03099998) Major depressive disorder, recurrent episode, moderate (F33.1) Active confirmed Problem Benign prostatic hypertrophy without outflow obstruction (679564546) BPH loc w/o ur obs/LUTS (N40.0) Active confirmed Encounters Encounter Location Date Provider Diagnosis [facility] [address] [place] [address] 11/07/2024 Sb Hutchison BPH loc w/o ur [...] nursing staff. Vitals taken and recorded at [facility]. 11/07/2024 Major depressive disorder, recurrent, severe with psychotic symptoms (ICD-10 - F33.3) 11/07/2024 Schizophrenia, unspecified (ICD-10 - F20.9) 11/07/2024 Psychosis (ICD-10 - F29) 11/07/2024 Adjustment disorder with mixed disturbance of emotions and conduct (ICD-10 - F43.25) 11/07/2024 Anxiety (ICD-10 - F41.9) Plan Of Treatment No Information Insurance Providers Payer Name Payer Address Payer Phone Subscriber Number Group Number Insured Name Patient Relationship to Insured Coverage Start Date Coverage End Date NOT IN NETWORK - UHC Medicare Dual Complete HMO [address] [address] [place] [address] [id number] Benedicto Amaral Self - patient is the insured [place] Medicaid [address] [place] [address] [id number] Benedicto Amaral Self - patient is the insured
--- OUTSIDE RECORDS SUMMARY | 2024-11-29 21:33 | XMS_ITS | Encounter Summary ---
[facility] Organization [facility] Address 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
--- OUTSIDE RECORDS SUMMARY | 2024-11-29 21:33 | XMS_ITS | Encounter Summary ---
Author Organization [facility] Address 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
[2024-11-29] MEDS: divalproex ER 500 mg Tablet (24H) 750 MG PO (22:55)
[2024-11-30 00:42] VITALS: BP 149/81; PULSE 84; RESP 19; O2SAT 97
--- NOTE | 2024-11-30 03:35 | W.ED.PSYCHS ---
HPI - Psych General: Chief Complaint: Psychiatric Symptoms Stated Complaint: Harassing EMS Time Seen by Provider: 11/29/24 21:23 History of Present Illness: 64 yo male with history of schizoaffective disorder (bipolar type), Parkinson?s disease, and PTSD was brought to the ED by EMS after repeatedly calling 911, yelling and screaming. Chart review shows multiple recent ED visits and a 21-day psychiatric admission in September 2024 for aggression. At that admission, Depakote 750 mg daily was started, monthly Invega Sustenna was increased to 234 mg (09/17/24), and oral Invega was added. Patient states he has not received his scheduled injections and has taken little to no oral medication; he has one unidentified medication bottle in his bag. He reports unstable housing (address [address] but ?trying to get out?), limited social supports, and recent incarceration for ?peace disturbance.? Denies acute physical complaints. Engaged in coherent conversation but endorses ongoing stress, distrust of EMS, and difficulty ?barely surviving.? Open to restarting medication and possibly psychiatric admission if transportation arranged. Related Data Home Medications ?Medication ?Instructions ?Recorded ?Confirmed simvastatin 40 mg tablet 40 mg PO BEDTIME 02/19/24 11/15/24 cetirizine 10 mg tablet 10 mg PO DAILY 05/05/24 11/15/24 losartan 25 mg tablet 25 mg PO DAILY 10/29/24 11/15/24 paliperidone palmitate 234 mg/1.5 234 mg IM Q30D 10/29/24 11/15/24 mL intramuscular syringe (Invega Sustenna) sodium chloride 1,000 mg soluble 1,000 mg PO BID 11/06/24 11/15/24 tablet gabapentin 100 mg capsule 100 mg PO BID 11/15/24 11/15/24 Previous Rx's ?Medication ?Instructions ?Recorded metformin 500 mg tablet 500 mg PO BIDWM 30 days #60 tabs 09/22/24 metoprolol tartrate 25 mg tablet 25 mg PO BID 30 days #60 tabs 09/22/24 divalproex 500 mg tablet,extended 500 mg PO BID #60 tabs 11/05/24 release 24 hr (Depakote ER) Allergies Allergy/AdvReac Type Severity Reaction Status Date / Time lithium Allergy ADR-Nausea Verified 11/09/24 11:40 oxycodone (From OxyContin) Allergy nausea Verified 11/09/24 11:40 Penicillins Allergy ALGY-Difficulty Verified 11/09/24 11:40 Breathing [facility] ED PFS: Medical History (Updated 11/30/24 @ 00:36 by Sonny Cárdenas MD) Cellulitis and abscess of left leg Chronic hyponatremia Schizoaffective disorder, bipolar type Seasonal allergies History of Parkinson's disease Hyperlipidemia Hypertension Psychiatric care Family History Father Cancer stomach Mother Cancer ovarian Social History Smoking and tobacco/nicotine status: former use of tobacco/nicotine Quit status (tobacco/nicotine): has quit using Year quit tobacco: Roughly 2014 Alcohol intake: current Alcohol intake frequency: holidays/special occasions only Substance/Drug Use: former Additional social history: Patient states he lives alone he would like full CODE STATUS as discussed 11/06/2024. He states that also if he saw Bear he would want to go forward to Bear Adopted: No Caregiver/support person: No Lives independently: Yes Household members: none Housing: Apartment Marital status: / Number of children: 1 Number of grandchildren: 2 Highest education level completed: 8th Grade Current occupational status: unemployed Pets and animals: No Leisure activites: exercise and clubs Sexually active: No Do you think of yourself as: Straight/Heterosexual Current gender identity: Male Janelle/Temple: Pentecostalism Special janelle needs: No Agree to transfusion: Yes Physical Exam Const: COMMON NORMALS: no acute distress, patient oriented x3 and alert HENMT: COMMON NORMALS: normocephalic and atraumatic HEAD & SCALP: normocephalic and atraumatic Eye: COMMON NORMALS: Equal, round and reactive pupils present, EOMs intact bilaterally and no scleral icterus PUPIL: Yes Equal, round and reactive pupils present Resp: COMMON NORMALS: normal respiratory effort and No retractions Cardio: COMMON NORMALS: regular rate, regular rhythm and No murmurs present (Cardio) RATE: regular rate RHYTHM: regular rhythm GI: COMMON NORMALS: Normal to inspection, nondistended, normoactive bowel sounds present, Soft to palpation and non-tender PALPATION: Yes Soft to palpation Neuro: COMMON NORMALS: patient oriented x3 SENSORIUM/ORIENTATION: Yes alert Psych: OTHER: No SI or HI, no active hallucinations or delusions. Mildly paranoid. Skin: COMMON NORMALS: no rashes or lesions noted GENERAL SKIN EXAM: no rashes or lesions noted Course Vital Signs: Vital signs: Vital Signs Temperature 98.8 F 11/29/24 21:23 Pulse Rate 84 11/30/24 00:42 Respiratory Rate 19 H 11/30/24 00:42 Blood Pressure 149/81 11/30/24 00:42 Pulse Oximetry 97 11/30/24 00:42 [facility] - Psych Medical Decision Making Patient presents with recurrent agitation after multiple 911 calls; longstanding history of schizoaffective disorder and admits to medication nonadherence since last psychiatric discharge in September 2024. He desires medication restart and possibly inpatient stabilization if transportation can be secured. Primary concern is relapse of schizoaffective disorder due to prolonged medication noncompliance. No acute medical issues identified; no evidence of substance intoxication or withdrawal noted in conversation. Will verify date of last Invega Sustenna; if due, administer injection. If not due, initiate oral Invega and resume Depakote 750 mg daily. Psychiatric admission considered for stabilization pending transportation arrangement (courtesy police ride or Medicaid transport). After receiving oral Haldol and Depakote, patient feels more stable. Last Invega shot was given less than 1 month ago thus was not repeated today. Patient at this time does not wish to be admitted psychiatrically and I do not feel he requires inpatient psychiatric care. I do not appreciate any other emergent medical process either. He will be discharged in stable and improved condition No radiology studies performed this visit Discharge Plan Discharge Patient Disposition: Home Clinical Impression: Schizoaffective disorder, bipolar type Condition: Stable Prescriptions: No Action simvastatin 40 mg tablet 40 mg PO BEDTIME Invega Sustenna 234 mg/1.5 mL syringe 234 mg IM Q30D Rx Instructions: Injection every 28 days Received at [facility] today, 10/29/24 divalproex [Depakote ER] 500 mg tablet extended release 24 hr 500 mg PO BID Qty: 60 3RF losartan 25 mg tablet 25 mg PO DAILY cetirizine 10 mg tablet 10 mg PO DAILY metformin 500 mg Tablet 500 mg PO BIDWM 30 Days Qty: 60 1RF metoprolol tartrate 25 mg tablet 25 mg PO BID 30 Days Qty: 60 1RF sodium chloride 1,000 mg tablet,soluble 1,000 mg PO BID gabapentin 100 mg capsule 100 mg PO BID Discharge Orders: Discharge ED (Routine); Ordered 11/30/24 Ordered By: Sonny Cárdenas Referrals: Shemar Arcos MD [Primary Care Provider, Family Practice] Discharge Diet: Usual diet Discharge Activity: Resume usual activity Patient Instructions: Schizoaffective Disorder (ED), Patient Portal & [place] Instructions Print Language: Khmer Coding Level of Care Code ED Office Assistant Receptionist for Brien Loomis
== END 2024-11-30 00:42 | disposition home or self-care (01) ==
PROVIDERS: Emergency Provider Student in an Organized Health Care Education/Training Program; PCP Family Medicine
DX: F25.0 Schizoaffective disorder, bipolar type (principal); Z79.84 Long term (current) use of oral hypoglycemic drugs; Z87.891 Personal history of nicotine dependence; E78.5 Hyperlipidemia, unspecified; I10 Essential (primary) hypertension
CPT/HCPCS: 99283; J9999

== ENCOUNTER 2024-12-08 16:26 | Emergency (ER) | payer OTHER, MEDICAID, SELFPAY ==
--- OUTSIDE RECORDS SUMMARY | 2003-05-13 19:00 | XMS_ITS | Continuity of Care Document ---
Author Name [facility] Address [address] [place] [address] Organization [facility] Care Team Providers Care Production Technician Name Role Phone [facility] Unavailable Unavailable Allergies, Adverse Reactions, Alerts Substance Category Reaction Severity Reaction type Status Date Reported Comments Source PCN Assertion Drug allergy Active - [facility] OxyCONTIN Assertion Drug allergy Active [facility]
--- OUTSIDE RECORDS SUMMARY | 2022-04-14 10:31 | XMS_ITS | Continuity of Care Document ---
Author Organization [facility] Address [id number] [address] Phone Care Team Providers Care Energy Engineer Name Role Phone Anand Duncan NP Unavailable [...] Diagnoses Date Provider Providers Copied on Encounter [facility], [address] Qbyru327T4 1603427SN- [facility], [place], [place], [address], [place] tel:[phone] [facility] No Information 2 Dakota Anand. [address] [place], [address], [place]. tel:[phone] [facility], [address] Bpsgt807H0 7265479DS- [place], [address], [place] tel:[phone] Behavioral [facility] F2 Medication Management (chief complaint)Eder izoaffective disorder (chief complaint)Gen eralized Anxiety Disorder (chief complaint) Schizoaffect filemon disorder, bipolar typeGenerali zed anxiety disorder Sep- 2 Kendrick Cabrera. [address] [place], [place], [address], [place]. tel:[phone] Referring Provider: Deborah Marks, [address] [place], [address] . tel:[phone] [facility], [address] Dshwh511Q3 5025874SO- [place], [address], [place] tel:[phone] Vision F1 Encounter for fit/adjst of spectacles and contact lenses Jan- 2 Genia Aponte. [address], [place], [address], [place]. tel:[phone] Referring Provider: Fay Cormier , [address] [place], [address] . tel:[phone] [facility], [address] Cxmxb268C0 5665563GZ- [place], [address], [place] tel:[phone] [facility] No Information Jan-0 2 No Information [facility], [address] Cfwkx207Q3 [id number], [address], [place] tel:[phone] Behavioral Medicine F2 Schizoaffect filemon disorder, bipolar type Jan- 2 Kendrick Cabrera. [address] [place], [place], [address], [place]. tel:[phone] Referring Provider: Deborah Marks, [address] [place], [address] . tel:[phone] OFFICE/OUTPA TIENT VISIT EST [facility], [address] Wtsqt305T8 1154947WQ- [place], [address], [place] tel:[phone] [facility] Est care (chief complaint) Hypertension PrediabetesM ixed hyperlipidem iaEncounter for immunization Jan-0 2 Horacio Blackman. [address] [place], [address], [place]. tel:[phone] Referring Provider: Hiral Leonard, [address] [place], [address]. tel:[phone] [facility], [address] Tntjj895S4 3049772SD- [place], [address], [place] tel:[phone] Behavioral Medicine F2 Medication Management (chief complaint)Eder izoaffective disorder (chief complaint)Gen eralized Anxiety Disorder (chief complaint) Schizoaffect filemon disorder, bipolar typeGenerali zed anxiety disorder 2 Kendrick Cabrera. [address] [place], [place], [address], [place]. tel:[phone] Referring Provider: Deborah Marks, [address] [place], [address] . tel:[phone] [facility], [address] Qyuvo016M1 7225050NL- [place], [place], [address], [place] tel:[phone] Vision F1 blurry vision (chief complaint) Hypermetropi a, bilateralReg ular astigmatism, bilateralPre sbyopiaAge-r elated nuclear cataract, bilateral 2 Genia Aponte. [address], [place], [address], [place]. tel:[phone] Referring Provider: Fay Cormier , [address] [place], [address] . tel:[phone] [facility], [address] Xwtxi266T7 2720651HXBurlington, [place], [address], [place] tel:[phone] Behavioral [facility] F2 Medication Management (chief complaint)Eder izophrenia (chief complaint)Gen eralized Anxiety Disorder (chief complaint) Undifferenti ated schizophreni aGeneralized anxiety disorder 2 Kendrick Cabrera. [address] [place], [place], [address], [place]. tel:[phone] Referring Provider: Deborah Marks, [address] [place], [address] . tel:[phone] [facility], [address] [place] [address], [address], [place] tel:[phone] Behavioral Medicine F2 Schizoaffect filemon disorder, bipolar type 2 Kendrick Cabrera. [address] [place], [place], [address], [place]. tel:[phone] Referring Provider: Deborah Marks, [address] [place], [address] . tel:[phone] [facility], [address] [place] [address], [address], [place] tel:[phone] Behavioral [facility] F2 Medication Management (chief complaint)Anx iety (chief complaint)und ifferentiated schizophrenia (chief complaint) Generalized anxiety disorderUndi fferentiated schizophreni a 2 Kendrick Cabrera. [address] [place], [place], [address], [place]. tel:[phone] Referring Provider: Deborah Marks, [address] [place], [address] . tel:[phone] OFFICE/OUTPA TIENT VISIT EST [facility], [address] Rprjj155H3 1330130XWBurlington, [place], [address], [place] tel:[phone] Behavioral Medicine F2 Hyperglycemia (chief complaint) Hyperglycemi aType 2 diabetes mellitus without complication s 2 Dakota Michel. [address] [place], [address], [place]. tel:[phone] Referring Provider: Anand Duncan, [address] [place], [address]. tel:[phone] [facility], [address] Vfhre552M8 5885726GSBur[place], [place], [address], [place] tel:[phone] Behavioral [facility] F2 Medication Management (chief complaint)Eder izophrenia (chief complaint)Gen eralized Anxiety Disorder (chief complaint) Undifferenti ated schizophreni aGeneralized Anxiety Disorder 2 Kendrick Cabrera. [address] [place], [place], [address], [place]. tel:[phone] Referring Provider: Deborah Marks, [address] [place], [address] . tel:[phone] OFFICE/OUTPA TIENT VISIT, [facility], [address] Fzyri194U1 1315978TKBur[place], [place], [address], [place] tel:[phone] Behavioral Medicine F2 EPS (chief complaint) Extrapyramid al and movement disorder 2 Dakota Michel. [address] [place], [address], [place]. tel:[phone] Referring Provider: Anand Duncan, [address] [place], [address]. tel:[phone] OFFICE/OUTPA TIENT VISIT [facility], [address] Akvrz690L6 7757915LWBurlington, [place], [address], [place] tel:[phone] Behavioral Medicine F2 Counseling (chief complaint) Counseling and coordination of careHypergly cemiaHyponat remia 2 Dakota Michel. [address] [place], [address], [place]. tel:[phone] Referring Provider: Anand Duncan, [address] [place], [address]. tel:[phone] [facility], [address] Oiumy119L2 4777641UP- [place], [place], [address], [place] tel:[phone] Behavioral [facility] F2 Medication Management (chief complaint)Eder izophrenia (chief complaint)Gen eralized Anxiety Disorder (chief complaint) Undifferenti ated schizophreni aGeneralized Anxiety Disorder 2 Kendrick Cabrera. [address] [place], [place], [address], [place]. tel:[phone] Referring Provider: Deborah Marks, [address] [place], [address] . tel:[phone] OFFICE/OUTPA TIENT VISIT [facility], [address] [id number] 7984970APBur[place], [place], [address], [place] tel:[phone] Behavioral Medicine F2 Follow Up (chief complaint) Benign prostatic hyperplasia with urinary frequencySch izophrenia, unspecified type 2 Dakota Michel. [address] [place], [address], [place]. tel:[phone] Referring Provider: Anand Duncan, [address] [place], [address]. tel:[phone] OFFICE/OUTPA TIENT VISIT, [facility], [address] Ggnpg057F5 [id number], [place], [address], [place] tel:[phone] [facility] Weakness (chief complaint) WeaknessChro lizet cough 2 Bina Aponte. [address], [place], [address], [place]. tel:[phone] Referring Provider: Fadi Curran, [address] [place], [address] . tel:[phone] OFFICE/OUTPA TIENT VISIT EST [facility], [address] Wqbvg813G1 8773793DW- [place], [place], [address], [place] tel:[phone] Behavioral Medicine F2 Several Concerns (chief complaint) Acute coughSchizoa ffective disorder, bipolar typePrediabe tesBenign prostatic hyperplasia with urinary frequencyExt rapyramidal and movement disorderRash and other nonspecific skin eruptionHema turia, unspecified 2 Dakota Michel. [address] [place], [address], [place]. tel:[phone] Referring Provider: Anand Duncan, [address] [place], [address]. tel:[phone] [facility], [address] Zwbty294J6 5717267JX- [place], [place], [address], [place] tel:[phone] Behavior[facility] F2 Schizoaffect filemon disorder, bipolar type 2 Kendrick Cabrera. [address] [place], [place], [address], [place]. tel:[phone] Referring Provider: Deborah Marks, [address] [place], [address] . tel:[phone] [facility], [address] Qkcgl064A6 0649127UY- [place], [place], [address], [place] tel:[phone] Behavioral Medicine F2 Medication Management (chief complaint)Eder izophrenia (chief complaint) Undifferenti ated schizophreni aGeneralized Anxiety Disorder 2 Kendrick Cabrera. [address] [place], [place], [address], [place]. tel:[phone] Referring Provider: Deborah Marks, [address] [place], [address] . tel:[phone] [facility], [address] Ronks310Q0 6818743TM- [place], [place], [address], [place] tel:[phone] [facility] No Information 2 Jo Portillo. [address], [place], [address], [place]. tel:[phone] Referring Provider: Bandar Osorio, [address] [place], [address] . tel:[phone] OFFICE/OUTPA TIENT VISIT, [facility], [address] Xlhwh881G2 9981540IW- [place], [place], [address], [place] tel:[phone] [facility] cough (chief complaint) CoughNasal congestion with rhinorrhea 2 Jo Portillo. [address] [place], [place], [address], [place]. tel:[phone] Referring Provider: Bandar Osorio, [address] [place], [address] . tel:[phone] PSYTX PT&/FAMILY 30 MINUTES [facility], [address] Rulfn440H0 8998789ZE- [place], [place], [address], [place] tel:[phone] [facility] Schizoaffect filemon disorder, bipolar type 2 Myron Houston. [address] [facility] , [place], [place], [address], [place]. tel:[phone] Referring Provider: Celso Sanches, [address] [place], [address] . tel:[phone] OFFICE/OUTPA TIENT VISIT [facility], [address] Nqssi309P9 0513189MK- [place], [place], [address], [place] tel:[phone] Behavioral Medicine F2 Tremors (chief complaint) Schizoaffect filemon disorder, bipolar typeType 2 diabetes mellitus without complication , without long-term current use of insulinExtra pyramidal and movement disorderEsse ntial (primary) hypertension Other senior care (current) drug therapyPredi abetesTremor , unspecified Apr-0 2 Dakota Michel. [address] [place], [address], [place]. tel:[phone] Referring Provider: Anand Duncan, [address] [place], [address]. tel:[phone] OFFICE/OUTPA TIENT VISIT EST [facility], [address] Ebkfb787J8 5671684RWBurlington, [place], [address], [place] tel:[phone] Behavioral Medicine F2 URI (chief complaint) Acute bronchitis due to other specified organisms Mar-3 2 Dakota Michel. [address] [place], [address], [place]. tel:[phone] Referring Provider: Anand Duncan, [address] [place], [address]. tel:[phone] [facility], [address] Nudbe827Q6 [id number], [place], [address], [place] tel:[phone] Behavioral Medicine F2 new psych (chief complaint) Schizoaffect filemon disorder, bipolar type Mar-3 2 No Information OFFICE/OUTPA TIENT VISIT EST [facility], [address] Onazq404L8 9011976OOPeoria, [place], [address], [place] tel:[phone] Behavioral Medicine F2 Injection (chief complaint) Schizophreni a, unspecified type Mar-2 2 Dakota Michel. [address] [place], [address], [place]. tel:[phone] Referring Provider: Anand Duncan, [address] [place], [address]. tel:[phone] PSYTX PT&/FAMILY 30 MINUTES [facility], [address] Otkiy136K2 7890928SU- [place], [place], [address], [place] tel:[phone] [facility] Schizophreni a, unspecified type 2 Lyle Blunt. [address] [place], [place], [address], [place]. tel:[phone] Referring Provider: Merlene Alvarenga, [address] [place], [address] . tel:[phone] OFFICE/OUTPA TIENT VISIT EST [facility], [address] Zcsln340O9 4266662VVPeoria, [place], [address], [place] tel:[phone] [facility] cough/ congestion (chief complaint)htn (chief complaint) Acute coughNasal congestion with rhinorrheaFl uOther schizophreni aHypertensio n 2 Jo Portillo. [address], [place], [address], [place]. tel:[phone] Referring Provider: Bandar Osorio, [address] [place], [address] . tel:[phone] [facility], [address] Tujtp992A2 0868680AMBurlington, [place], [address], [place] tel:[phone] [facility] No Information 2 Marjorie Moreno. [address] [place], [place], [address], [place]. tel:[phone] Referring Provider: Tiffanie Amador, [address] [place], [address] . tel:[phone] [facility], [address] Inmdu802L6 0255113ZSPeoria, [place], [address], [place] tel:[phone] [facility] No Information 1 Evan Roque. [address], [place], [address], [place]. tel:[phone] Referring Provider: Mya Gusman, [address] [place], [address] . tel:[phone] OFFICE/OUTPA TIENT VISIT, [facility], [address] Vtwlm473T8 5982836CIBurlington, [place], [address], [place] tel:[phone] Behavioral [facility] F2 Schizophreni a, unspecified type 1 Evan Roque. [address], [place], [address], [place]. tel:[phone] Referring Provider: Mya Gusman, [address] [place], [address] . tel:[phone] OFFICE/OUTPA TIENT VISIT [facility], [address] Rpads132V6 6230348NGBurlington, [place], [address], [place] tel:[phone] [facility] prediabetes (chief complaint)Silvia k pain (chief complaint)BPH (chief complaint) PrediabetesT ype 2 diabetes mellitus without complication , without long-term current use of insulinChron ic bilateral low back pain with right-sided sciaticaOthe r chronic painBenign prostatic hyperplasia with urinary frequency 1 Evan Roque. [address], [place], [address], [place]. tel:[phone] Referring Provider: Mya Gusman, [address] [place], [address] . tel:[phone] [facility], [address] Nilqr636X4 0263128FDBurlington, [place], [address], [place] tel:[phone] [facility] No Information 1 Bina Aponte. [address] [place], [place], [address], [place]. tel:[phone] Referring Provider: Fadi Curran, [address] [place], [address] . tel:[phone] OFFICE/OUTPA TIENT VISIT, EST [facility], [address] Ijvnl489Z1 9026122LS- [facility], [place], [place], [address], [place] tel:[phone] [facility] Right upper leg pain / burning for the past (chief complaint) Right sided sciatica Feb-2 1 Jaren Larson. [address], [place], [address], [place]. tel:[phone] Referring Provider: Marsha Eastman, [address] [place], [address] . tel:[phone] [facility], [address] Ffkid994F5 7622250LUBurlington, [place], [address], [place] tel:[phone] Behavior[facility] F2 Schizophreni a, unspecified type Feb- 1 Evan Roque. [address] [place], [place], [address], [place]. tel:[phone] Referring Provider: Mya Gusman, [address] [place], [address] . tel:[phone] [facility], [address] Cnqyi616W2 4925422JL- [place], [place], [address], [place] tel:[phone] Family Medicine F1 Change of job 0 1 [facility]. [address], [place], [address], [place]. tel:[phone] [facility], [address] Mnkry244I9 0163861MX- [place], [place], [address], [place] tel:[phone] [facility] F2 Schizophreni a, unspecified type Jan- 1 Evan Roque. [address], [place], [address], [place]. tel:[phone] Referring Provider: Mya Gusman, [address] [place], [address] . tel:[phone] OFFICE/OUTPA TIENT VISIT, [facility], [address] Tptmt504V9 2606862QD- [place], [place], [address], [place] tel:[phone] [facility] Earache (chief complaint) Acute otitis externa of right ear, unspecified type 1 Evan Roque. [address], [place], [address], [place]. tel:[phone] Referring Provider: Mya Gusman, [address] [place], [address] . tel:[phone] OFFICE/OUTPA TIENT VISIT, [facility], [address] Spyjq001A0 5583546QSBurlington, [place], [address], [place] tel:[phone] [facility] Schizophreni a, unspecified type 1 Evan Roque. [address], [place], [address], [place]. tel:[phone] Referring Provider: Mya Gusman, [address] [place], [address] . tel:[phone] [facility], [address] Asebo905F1 [id number], [place], [address], [place] tel:[phone] Family Medicine F1 Cough 1 Med [facility]. [address], [place], [address], [place]. tel:[phone] Referring Provider: Theron Jovel, [address] [place], [address] . tel:[phone] OFFICE/OUTPA TIENT VISIT [facility], [address] Ihemx911O2 8684925YMPeoria, [place], [address], [place] tel:[phone] [facility] Viral syndrome (chief complaint)cou gh, congestion x 1 wk (chief complaint) Contact with and (suspected) exposure to other viral communicable diseasesVira l URI 1 [facility]. [address], [place], [address], [place]. tel:[phone] Referring Provider: Theron Jovel, [address] [place], [address] . tel:[phone] [facility], [address] Ngffw763D6 9525099DVBurlington, [place], [address], [place] tel:[phone] Family Medicine F1 Unemployment 1 [facility]. [address], [place], [address], [place]. tel:[phone] [facility], [address] Hfabt018P0 5143850GOBurlington, [place], [address], [place] tel:[phone] [facility] F2 No Information 1 Evan Roque. [address], [place], [address], [place]. tel:[phone] Referring Provider: Mya Gusman, [address] [place], [address] . tel:[phone] [facility], [address] Fbmok044E8 4944781CWBurlington, [place], [address], [place] tel:[phone] [facility] behavioral health f/u (chief complaint)dep ression (chief complaint) Schizophreni a, unspecified type 1 Evan Roque. [address], [place], [address], [place]. tel:[phone] Referring Provider: Mya Gusman, [address] [place], [address] . tel:[phone] [facility], [address] Xhpng608D2 5169516DTBurlington, [place], [address], [place] tel:[phone] [facility] Schizophreni a, unspecified type 1 Gordon Mya. [address], [place], [address], [place]. tel:[phone] Referring Provider: Mya Gusman, [address] [place], [address] . tel:[phone] [facility], [address] Ucorn822C6 5444884GGBurlington, [place], [address], [place] tel:[phone] [facility] Schizoaffecti ve disorder (chief complaint) Hypo-osmolal ity and hyponatremia Other activities director (current) drug therapyMixed hyperlipidem iaSchizophre michaela, unspecified type 1 Evan Mya. [address], [place], [address], [place]. tel:[phone] Referring Provider: Mya Gusman, [address] [place], [address] . tel:[phone] [facility], [address] Bixee239M8 1378670ZQBurlington, [place], [address], [place] tel:[phone] [facility] Schizophreni a, unspecified type 1 Evan Roque. [address], [place], [address], [place]. tel:[phone] Referring Provider: Mya Gusman, [address] [place], [address] . tel:[phone] OFFICE/OUTPA TIENT VISIT, EST [facility], [address] Hmrvw578C3 6321007LZBurlington, [place], [address], [place] tel:[phone] [facility] knots on legs (chief complaint) Worried well 1 Evan Roque. [address], [place], [address], [place]. tel:[phone] Referring Provider: Mya Gusman, [address] [facility], [place], [address] . tel:[phone] [facility], [address] Bgojg404B6 9863481VS- [facility], [place], [place], [address], [place] tel:[phone] [facility] Schizophreni a, unspecified type Apr-2 1 Evan Mya. [address], [place], [address], [place]. tel:[phone] Referring Provider: Mya Gusman, [address] [facility], [place], [address] . tel:[phone] [facility], [address] Ixgdv800X9 0827389LP- [place], [place], [address], [place] tel:[phone] [facility] Schizophrenia (chief complaint) Schizophreni a, unspecified type Mar-2 1 Evan Mya. [address], [place], [address], [place]. tel:[phone] Referring Provider: Mya Gusman, [address] [place], [address] . tel:[phone] OFFICE/OUTPA TIENT VISIT, [facility], [address] Yuthq164G0 3419369YW- [facility], [place], [place], [address], [place] tel:[phone] [facility] Dizziness (chief complaint) Dizzy Mar-0 1 Evan Mya. [address], [place], [address], [place]. tel:[phone] Referring Provider: Mya Gusman, [address] [place], [address] . tel:[phone] [facility], [address] Gaitt564C3 0541742YYOs[facility], [place], [place], [address], [place] tel:[phone] [facility] Schizophreni a, unspecified type Mar-0 1 Gordon Mya. [address], [place], [address], [place]. tel:[phone] Referring Provider: yMa Gusman, [address] [place], [address] . tel:[phone] [facility], [address] Rvtnq955M4 0757597LKPeoria, [place], [address], [place] tel:[phone] [facility] Schizophreni a, unspecified type 1 Gordon Mya. [address], [place], [address], [place]. tel:[phone] Referring Provider: Mya Gusman, [address] [place], [address] . tel:[phone] [facility], [address] Rsvhm127E8 3416438JCBurlington, [place], [address], [place] tel:[phone] Family Medicine F1 Schizophreni a, unspecified type 0 Gordon Mya. [address], [place], [address], [place]. tel:[phone] Referring Provider: Mya Gusman, [address] [place], [address] . tel:[phone] [facility], [address] Vrcdi765P1 1614695QQBurlington, [place], [address], [place] tel:[phone] Behavior[facility] F2 No Information 0 Gordon Mya. [address] [place], [place], [address], [place]. tel:[phone] Referring Provider: Mya Gusman, [address] [place], [address] . tel:[phone] OFFICE/OUTPA TIENT VISIT, EST [facility], [address] Uapou052K9 7804894MU- [place], [place], [address], [place] tel:[phone] [facility] Referral for urologist (chief complaint)bed bugs (chief complaint)Blo od in stool (chief complaint) Urinary frequencyBlo od in stoolInfesta tion by bed bugOther senior care (current) drug therapyPredi abetesBenign prostatic hyperplasia with urinary frequencyOth er microscopic hematuria Apr-0 7-202 0 Evan Roque. [address], [place], [address], [place]. tel:[phone] Referring Provider: Mya Gusman, [address] [place], [address] . tel:[phone] [facility], [address] Foydj089G6 3767927OXBurlington, [place], [address], [place] tel:[phone] [facility] Schizophreni a, unspecified type 0 0 Evan Roque. [address] [place], [place], [address], [place]. tel:[phone] Referring Provider: Mya Gusman, [address] [place], [address] . tel:[phone] OFFICE/OUTPA TIENT VISIT EST [facility], [address] Ngxmp081U8 8419278RW- [place], [place], [address], [place] tel:[phone] [facility] Rash (chief complaint) Rash and other nonspecific skin eruption Mar-0 2202 0 Bina Aponte. [address], [place], [address], [place]. tel:[phone] Referring Provider: Fadi Curran, [address] [place], [address] . tel:[phone] [facility], [address] Coyzb108H1 7818588EKPeoria, [place], [address], [place] tel:[phone] [facility] Schizophreni a, unspecified type Feb 0 Gordon Mya. [address] [place], [place], [address], [place]. tel:[phone] Referring Provider: Mya Gusman, [address] [place], [address] . tel:[phone] [facility], [address] Vhlnu571J9 0451329LC- [place], [place], [address], [place] tel:[phone] [facility] Schizophreni a, unspecified type Sep-3 0 Gordon Mya. [address] [place], [place], [address], [place]. tel:[phone] Referring Provider: Mya Gusman, [address] [place], [address] . tel:[phone] [facility], [address] Agdqu114T9 1033039SPBurlington, [place], [address], [place] tel:[phone] [facility] Schizophrenia (chief complaint) Schizophreni a, unspecified typeGenerali zed Anxiety Disorder 0 Gordon Mya. [address], [place], [address], [place]. tel:[phone] Referring Provider: Mya Gusman, [address] [place], [address] . tel:[phone] [facility], [address] Vgeuf692T5 6323015OB- [place], [place], [address], [place] tel:[phone] [facility] Generalized Anxiety Disorder Nov- 0 Evan Mya. [address], [place], [address], [place]. tel:[phone] Referring Provider: Mya Gusman, [address] [place], [address] . tel:[phone] [facility], [address] Pjguq383V9 3986347HXBurlington, [place] [id number], [place] tel:[phone] Family Medicine F1 Schizophreni a, unspecified type 0 Gordon Mya. [address], [place], [id number], [place]. tel:[phone] Referring Provider: Mya Gusman, [address] [place], [address] . tel:[phone] [facility], [id number], [id number], [place] tel:[phone] Family Medicine F2 schizophrenia (chief complaint) Schizophreni a, unspecified typeGenerali zed Anxiety Disorder 0 Gordon Mya. [address], [place], [address], [place]. tel:[phone] Referring Provider: Mya Gusman, [address] [place], [address] . tel:[phone] [facility], [address]tdzi[address]H8 4387043DYPe[place], [place], [address], [place] tel:[phone] Family Medicine F1 hypertension (chief complaint) No Information 0 Gordon Mya. [address], [place], [address], [place]. tel:[phone] Referring Provider: Mya Gusman, [address] [place], [address] . tel:[phone] [facility], [address] Hjifa091A3 8600865QKPe[place], [place], [address], [place] tel:[phone] Family Medicine F1 Schizophrenia (chief complaint) Schizophreni a, unspecified typeFrequenc y of micturition 0 Gordon Mya. [address], [place], [address], [place]. tel:[phone] Referring Provider: Mya Gusman, [address] [place], [address] . tel:[phone] OFFICE/OUTPA TIENT VISIT, EST [facility], [address] Cinuk584U0 [id number]- [place], [place], [address], [place] tel:[phone] Family Medicine F1 Blood in urine (chief complaint) Frequency of micturition Aug-2 0 Evan Roque. [address], [place], [address], [place]. tel:[phone] Referring Provider: Mya Gordon R, [address] [place], [address] . tel:[phone] [facility], [address] Aidge095V5 9054027PBBur[place], [place], [address], [place] tel:[phone] Family Medicine F1 Hematuria, unspecified 0 Cale Hernandez. [address], [place], [address], [place]. tel:[phone] Referring Provider: David Flores, [address] [place], [address] . tel:[phone] [facility], [address] Terhr972A4 8086187JZBur[place], [place], [address], [place] tel:[phone] Behavioral Medicine F2 No Information 0 No Information OFFICE/OUTPA TIENT VISIT EST [facility], [address] Aijwy300V6 [id number], [address], [place] tel:[phone] Behavioral Medicine F2 Follow Up of Mood [...] therapy Jul-3 0 Aquilino Potter. [address] [place], [place], [address], [place]. tel:[phone] Referring Provider: Abbey Rolle, [address] [place], [address] . tel:[phone] [facility], [address] Sobex072Z6 3236539SZBur[place], [place], [address], [place] tel:[phone] Behavioral Medicine F2 Mixed hyperlipidem iaEssential (primary) hypertension Other senior care (current) drug therapy Jul-2 0 No Information OFFICE/OUTPA TIENT VISIT, EST [facility], [address] Picrr351T7 [id number], [place], [address], [place] tel:[phone] Behavioral Medicine F2 Schizophrenia (chief complaint)MAIDA (chief complaint)med ication management (chief complaint) Schizophreni a, unspecified type Jul-2 0 No Information [facility], [address] Iwfqx454X7 7665864ZKHunnewell, [place], [address], [place] tel:[phone] [facility] [place] Schizophreni a, unspecified type Jul-0 0 Evan Roque. [address], [place], [address], [place]. tel:[phone] Referring Provider: Mya Gusman, [address] [place], [address] . tel:[phone] [facility], [address] Btlbl831I1 1119064ADBurlington, [place], [address], [place] tel:[phone] [facility] [place] Schizophreni a, unspecified type Fe- 0 Evan Roque. [address], [place], [address], [place]. tel:[phone] Referring Provider: Mya Gusman, [address] [place], [address] . tel:[phone] [facility], [address] Loifg944T3 2861364AO- [facility], [place], [place], [address], [place] tel:[phone] [facility] [place] No Information 0 Evan Roque. [address], [place], [address], [place]. tel:[phone] Referring Provider: Mya Gusman, [address] [place], [address] . tel:[phone] OFFICE/OUTPA TIENT VISIT, [facility], [address] Oebkt549P3 5181000BDPe[place], [place], [address], [place] tel:[phone] [facility] [place] Shortness of breath (chief complaint) COPD 0 Evan Roque. [address], [place], [address], [place]. tel:[phone] Referring Provider: Mya Gusman, [address] [place], [address] . tel:[phone] [facility], [address] Zmqpz106B0 2206895TMPeoria, [place], [address], [place] tel:[phone] [facility] [place] No Information 0 Evan Roque. [address], [place], [address], [place]. tel:[phone] Referring Provider: Mya Gusman, [address] [place], [address] . tel:[phone] [facility], [address] Ofaft162R1 8353761PJPeoria, [place], [address], [place] tel:[phone] [facility] [place] Follow Up of Schizophrenia (chief complaint) Schizophreni a, unspecified typeGenerali zed Anxiety Disorder May-0 9-202 0 Gordon Mya. [address], [place], [address], [place]. tel:[phone] Referring Provider: Mya Gusman, [address] [place], [address] . tel:[phone] [facility], [address] Krzqs161B3 2120934RXBurlington, [place], [address], [place] tel:[phone] [facility] [place] Schizophreni a, unspecified type 0 2-202 0 Gordon Mya. [address], [place], [address], [place]. tel:[phone] Referring Provider: Mya Gusman, [address] [place], [address] . tel:[phone] [facility], [address] Thsqf204R2 1720521QJBurlington, [place], [address], [place] tel:[phone] [facility] (chief complaint) Other senior care (current) drug therapySchiz ophrenia, unspecified typeGenerali zed Anxiety Disorder Apr-0 201 9 Gordon Mya. [address], [place], [address], [place]. tel:[phone] Referring Provider: Mya Gusman, [address] [place], [address] . tel:[phone] [facility], [address] Ljupj076E1 6565539DXBurlington, [place], [address], [place] tel:[phone] [facility] [place] Schizophreni a, unspecified type 0 9 Gordon Mya. [address], [place], [address], [place]. tel:[phone] Referring Provider: Mya Gusman, [address] [place], [address] . tel:[phone] OFFICE/OUTPA TIENT VISIT [facility], [address] Ammna695U4 6746665ZGPeoria, [place], [address], [place] tel:[phone] [facility] [place] Est. Care (chief complaint)Mus culoskeletal pain (chief complaint)Tamela rrhea (chief complaint) Diarrhea, unspecified typeSciatica of left sideSchizoph herb, unspecified typeOther senior care (current) drug therapy 9 Evan Roque. [address], [place], [address], [place]. tel:[phone] Referring Provider: Mya Gusman, [address] [place], [address] . tel:[phone] OFFICE/OUTPA TIENT VISIT, [facility], [address] Ffphr013Q1 [id number], [place], [address], [place] tel:[phone] Family Medicine F1 Body aches, nausea, (chief complaint) Viral syndrome 9 No Information OFFICE/OUTPA TIENT VISIT, [facility], [address] Tcbet550T1 0922989VNBurlington, [place], [address], [place] tel:[phone] Family Medicine F1 Hospital F/U (chief complaint) Hospital discharge follow-up 9 No Information [facility], [address] Uvsmv957G2 8675187WWBur[place], [place], [address], [place] tel:[phone] Family Medicine F1 Generalized Anxiety Disorder 9 No Information OFFICE/OUTPA TIENT VISIT, [facility], [address] Zidnj924O0 8992605WJBurlington, [place], [address], [place] tel:[phone] Family Medicine F1 Exam diarrhea (chief complaint) Diarrhea, unspecified type 9 Bina Aponte. [address], [place], [address], [place]. tel:[phone] Referring Provider: Fadi Curran, [address] [place], [address] . tel:[phone] OFFICE/OUTPA TIENT VISIT, [facility], [address] Eeoum603L3 3920755IYBurlington, [place], [address], [place] tel:[phone] Family Medicine F1 Diarrhea (chief complaint) Diarrhea, unspecified type Feb-0 7 9 No Information [facility], [address] Zddur798I2 8059355UHBurlington, [place], [address], [place] tel:[phone] Family Medicine F1 No Information Feb-0 9 No Information [facility], [address] Zmfit598S4 1467783RQBurlington, [place], [address], [place] tel:[phone] Family Medicine F1 No Information Feb-0 9 Jose D Armstrong. [address], [place], [address], [place]. tel:[phone] Referring Provider: Nathaniel Jeffery, [address] [place], [address] . tel:[phone] OFFICE/OUTPA TIENT VISIT, [facility], [address] Uqpem637U0 0190496HZBurlington, [place], [address], [place] tel:[phone] Family Medicine F1 Diarrhea (chief complaint) Diarrhea, unspecified typeTremors of nervous system Sep-3 0 9 No Information OFFICE/OUTPA TIENT VISIT, [facility], [address] Okcve187J5 1292898QEBurlington, [place], [address], [place] tel:[phone] Family Medicine F1 Hospital F/U (chief complaint) Homelessness Hospital discharge follow-up Jan- 9 No Information OFFICE/OUTPA TIENT VISIT, [facility], [address] Lvzcy073X2 6052453FA- [facility], [place], [place], [address], [place] tel:[phone] Family Medicine F1 Invega Injection (chief complaint) Schizophreni a, unspecified type No Information OFFICE/OUTPA TIENT VISIT, [facility], [address] Lcmja156R0 8117464ONOswe[facility], [place], [place], [address], [place] tel:[phone] Family Medicine F1 Medication Management (chief complaint)Nee ds Note (chief complaint) Generalized Anxiety DisorderHype rtensionUrin hanane frequencyMix ed hyperlipidem ia No Information [facility], [address] Wufid857S7 0272728EAOswego Medical Center, [place], [place], [address], [place] tel:[phone] Family Medicine F1 Pain in left foot 9 Suzanne Rodriguez. [address], [place], [address], [place]. [phone] Referring Provider: Michael Palacios, [address] [place], [address] . tel:[phone] [facility], [address] Elwrl865T3 5872798QICraw[facility], [place], [place], [address], [place] tel:[phone] Family Medicine F1 No Information 9 No Information OFFICE/OUTPA TIENT VISIT, [facility], [address] Haymw673M3 4950096XVBurlington, [place], [address], [place] tel:[phone] Family Medicine F1 Left foot pain (chief complaint) Left foot painHomeless ness 9 No Information [facility], [address] Vzmia789K5 9189676WUPeoria, [place], [address], [place] tel:[phone] Family Medicine F1 Homelessness 9 [facility]. [address], [place], [address], [place]. tel:[phone] Referring Provider: [facility], [address] [place], [address] . tel:[phone] OFFICE/OUTPA TIENT VISIT, EST [facility], [address] Cnkvk682Z0 4051912KP- [place], [place], [address], [place] tel:[phone] Family Medicine Establish Care (chief complaint)walt elessness (chief complaint) Generalized Anxiety DisorderHype rtensionMixe d hyperlipidem iaHomelessne ss No Information [facility], [address] Arwoh145S5 8773486SGPeoria, [place], [address], [place] tel:[phone] Family Medicine Homelessness 9 [facility]. [address], [place], [address], [place]. [phone] Referring Provider: [facility], [address] [place], [address] . tel:[phone] [facility], [address] Rfckp707D1 0060350EB- [place], [place], [address], [place] tel:[phone] Behavior[facility] Other specified counseling No Information [facility], [address] Oerpl817P2 1829855QZ- [place], [place], [address], [place] tel:[phone] [facility] No Information 9 Dakota Michel. [address] [place], [address], [place]. tel:[phone] Referring Provider: Anand Duncan, [address] [place], [address]. tel:[phone] [facility], [address] Hnbvd650L2 3907655EU- [facility], [place], [place], [address], [place] tel:[phone] [facility] No Information 9 Dakota Michel. [address] [place], [address], [place]. tel:[phone] Referring Provider: Anand Duncan, [address] [place], [address]. tel:[phone] [facility], [address] Wwosb459Y3 0506672ZFPeoria, [place], [address], [place] tel:[phone] [facility] No Information 8 Dakota Michel. [address] [place], [address], [place]. tel:[phone] Referring Provider: Anand Duncan, [address] [place], [address]. tel:[phone] OFFICE/OUTPA TIENT VISIT, [facility], [address] Usnvs376Y6 0402298RTPeoria, [place], [address], [place] tel:[phone] [facility] Est. Care (chief complaint)Chr onic conditions (chief complaint) Hypertension Mixed hyperlipidem iaGeneralize d Anxiety DisorderHypo natremiaUrin hanane frequency 8 Dakota Michel. [address] [place], [address], [place]. tel:[phone] Referring Provider: Anand Duncan, [address] [place], [address]. tel:[phone] [facility], [address] Egtlt645Z4 0874492HUPeoria, [place], [address], [place] tel:[phone] [facility] No Information 3201 8 Dakota Michel. [address] [place], [address], [place]. tel:[phone] Family History Family Member Type Diagnosis Age At Onset No Information Immunizations Vaccine Date Status Comments Tdap (7 yrs and older) administered Note: VIS: 12/17/20 Patient had no reaction while in clinic. kw ; Source: New Immunization Record Flu Vaccine 6 Months and older administered Source: Public Agenc y Flu Vaccine 6 Months and older administered Note: pt reports at [facility] ; Source: Source Unspecified Payers Payer name Insurance type Covered alliance party ID Authorizbayron quiñones(s) M [facility] Dual Com plete Medica CI [id number] M [place] Medicaid MC [id number] [facility] Dual Com plete Medica CI [id number] M [place] Medicaid MC [id number] Social History Type Description Quantity Date Captured [...] counseling completed Referral Ordered: [facility] Consult ordered Referral Ordered: Referrals: Urology. Location: [facility]. Assume care ordered Referral Ordered: Referrals: physcial therapy. Location: [facility]. Evaluate and treat ordered Referral Ordered: Referrals: Location: SDOH (related to Unemployment) ordered Referral Ordered: AARP (related to Unemployment) ordered Referral Ordered: Referrals: Urology. Location: [facility]. Evaluate and treat ordered Referral Ordered: Referrals: Urology ordered Referral Ordered: Referrals: neurologist ordered Referral Ordered: Referrals: [place] ordered Referral Ordered: Referrals: Location: [facility] ordered Referral Ordered: Referrals: Urology. Consult ordered Patient Education Sciatica: Exercises com pleted Patient Education Sciatica: Care Instruct ions completed Patient Education Sciatica: Exercises com pleted Patient Education Low Back Pain: Exercise s completed Future Order: Lab Order [id number] linic/POC ([id number]), Appointment on: , Sent on: Sent Future Order: Lab Order COVID-19 PCR-JV ([id number]), Sent on: Sent Future Order: Radiology Order Ch est 2 Views ([id number]), Ordered on: Ordered History Of Present Illness Encounter Date Complaint History Of Prese nt Illness Medication Management Telephone appointment today.Robert reports he has moved to [place] and is needing his injection sent to the Pharmacy in [place] to make sure he does not miss a dosage. He states he relocated there with his brother.He states he could not take it anymore in [place], and needed to get out of town.He denies SI/HI/AH/VH.He has no complaints or concerns at this time.Plans on establishing care in [place] for Psychiatric Care. 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 Patient is stimulated with [...] He would like to see urology at [facility] for his bladder and BPH- no [...] with a friend. Was recently seen in [facility] and encouraged to follow up with PCP. When discussing appointment with patient today, he states everything is fine. He denies SI/HI/AH/VH. He feels his tremors have decreased with cogentin. He is slightly dishevel in appearance. He has a laundry bag with him today, and states he is going to go to the steel engraver after this appointment. He is alert and [...] Tele-Session don e due to contract with [facility] to provide off-site services; Verbal consent from Patient received; All Medications to be e-scribed through NEXT GEN -Chief Complaint / Establish care - ADMITTED TO [facility] FOR 10 DAYS IN JULY 2021 FOR REPORTING SUICIDAL THOUGHTS -PERRECORD - HAS HISTORY OF VERBAL AND PHYSICAL AGGRESSION - INNAPPROPRIATE SEXUAL BEHAVIORS - MANIC AND POSSIBLE MANIPULATIVE BEHAVIORS AND NON COMPLIANCE TO TREATMENT - HOMELESS -WITH POOR INSIGHT - [facility] - DISCHARGED ON INVEGA SUSTENNA 156MG IM [...] of Delusion:-YES- Past/ I GET SPIRITS- HYPER LUTHERAN THOUGHTS - AND PARANOIA Reports Hx of [...] DENIED SOCIAL HISTORYLiving Situation [facility]-; Children - NONE Highest Education- 6TH GRADE Occupation/Work History- Disabled; 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 Has a hx of hematuria. Has hx [...] he is seeing a urologist-Dr. Campuzano at [facility]. Pt reports that he would like to change clinics. He has surgery for his bladder in December and is wanting to see a different provider and would like to go to [facility]. Blood in stool Pertinent negati ves include abdominal distention, abdominal pain, bloating, change in bowel habits, constipation, decreased appetite, diarrhea, dysphagia, heartburn, nausea, perirectal itching, rectal pain, rectal pain associated with bleeding, vomiting and weight loss. Additional information: Pt had colonoscopy at [facility] last year. Has had this off and [...] of Flomax and refer for Urologist at [facility] at this time. WBC is low [...] medication. No SI or HI. 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 Shortness of breath In the [...] behaviors were discussed; illegal drugs, prescription drugs, guuw-ijh-vsxglys drugs, gambling, alcohol, tobacco and vaping.Reports alcoholism, [...] of the time. HTNBPHHyperlipidemiaSocial History:[facility] Social Supports were discussed; episcopalian, family/friendships, therapy, and cultural/ethnic/community supports. I believe in GodPatient reports having support from God, ERROL-Cr, familySexual Orientation: born male, ID male, heterosexualMarital Status: girlfriendNumber of times /: 1/0/is . Children: noneMilitary Service: deniesLegal Information (guardian, probation, parole):Reports hx of incarcerationHas current charge for trespassing [facility] History:Denies inutero exposure to drugs/alcoholMet milestones [...] Care PHQ 0.Seeing a n eurologist at [facility]-for parkinsons dslast colonoscopy was 5 years ago-has [...] diarrhea today. 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 Pt requesting OTC medications prescribed. Diarrhea [...] note stati james he was here for ThingWorx. Left foot pain Location: left f oot. Establish Care Pt needing to es tablish care. homelessness Pt needing help getting medications cannot afford. Est. Care The symptoms are reported as being moderate. The symptoms occur daily. He states the symptoms are chronic. Benedicto Amaral is a 58 year old male that is a Resident at [facility]. He has been there for [...] cations without change. E-scribed Invega Injection to [place] [facility]. 2. Will be seen again if [...] to the clinic in 3 months for X1kQvnaofpf good foot hygiene, wear closed toed shoes. [...] Related t o Undifferentiated schizophrenia referral to [facility]- he has seen urology before *about [...] [facility]. Related to Other schizophrenia Pt will not [...] wishes to have this completed at the [place] location due to nurse preference. I offered [...] EC. Reviewed methods to eradicate in apartment, coroner/medical examiner is scheduled for tomorrow. Pt is aware of signs and sxs to contact the clinic for further treatment. Related to Infestation by bed bug Will call pt to repo rt lab results and further plan of care including adjustments to medication if indicated and recommendations for f/u. Related to Other senior care (current) drug therapy Sign ROR for colonos [...] f/u.Pt requests to move urology services to [facility]. ROR for Dr. Ortega's office to be [...] PRN with any issues Related to Other senior care (current) drug therapy Weight control education Related to Other senior care (current) drug therapy Hypertension education Related t o Other activities director (current) drug therapy 1. Patient will be [...] Referral for assiste d living per nurse restorative care technician. Related to Homelessness Xray left foot today will call with results. Related to Left foot pain Resources provided. Education/counseling provided. Transpiration provided. Related to Homelessness Medications refilled. Related to Generalized Anxiety Disorder Medications refilled. Related to Hypertension Medications refilled. Related to Mixed hyperlipidemia We [...] 911 or [facility]-6 weeks for [...]
[2024-08-12 08:41] VITALS: BP 143/101; BMI 36.0
[2024-12-08 16:26] VITALS: BMI 25.1
--- OUTSIDE RECORDS SUMMARY | 2024-12-08 16:31 | XMS_ITS | Clinical Summary ---
Author Organization [facility] Address [address] [facility] Attn: Epic Prelude ADT [place] [address] Care Team Providers Care Web Publisher Name Role Phone Unavailable Primary Care Provider Unavailabl e Allergies Active Allergy Reactions Criticality Noted Date Comments Lactose Diarrhea Medium 08/03/2022 Spring Anaphylaxis,Other (S ee Comments) High 05/02/2018 Vomiting [...] admission 06/15 Borderline diabetes 06/20/2021 Atherosclerosis of [place] co ronary artery of [place] heart without angina pectoris 06/13/2021 Benign prostatic [...] Encounters Date Type Department Care Team Description 12/02/2024 External Device Data [facility] ABSTRACTION Provider, Abstract 12/02/2024 External Device Data [facility]STRACTION Provider, Abstract 11/27/2024 Abstract [facility] Urology [address] [place] [address] Brad Correa MD 11/25/2024 Telephone [facility] Urology [address] [place] [address] Provider, Abstract urology referral appointment 11/25/2024 Abstract [facility] Urology [address] [place] [address] Provider, Abstract from Last 3 Months Immunizations [...] on file 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 Gender Identity Not on file Sexual Orientation [...] Diagnosis Comments COLONOSCOPY REPORT 04/30/2019 4:17 PM GRAPHIC DESIGN PROFESSOR from Last 3 Months or Most Recently Relevant to Health Maintenance Results * COLONOSCOPY REPORT (04/30/2019 4:17 PM GRAPHIC DESIGN PROFESSOR) Teofilo Graves MD GI PROCEDURE ORDERABL ES Final Result from Last 3 Months or Most Recently Relevant to Health Maintenance Insurance MEDICAID [facility] [facility] DUAL COMPLETE HMO [facility] [id number] RX [employer] RX Member Subscriber Plan / Payer (Ef fective 2021-Present) Name:Benedicto Amaral Relation to Subscriber:Self Name:Benedicto Amaral Subscriber ID:Not on file Payer ID:Not on file Group ID:[id number] Type:RX Medicare Part D Address: [place] MEDICA[place] [facility] MEDICARE [id number] Advance Directives For more information, please contact: [phone] * Full Code (Latest Code Status on [...]
--- OUTSIDE RECORDS SUMMARY | 2024-12-08 16:31 | XMS_ITS | Encounter Summary ---
Author Organization [facility] Address 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
--- OUTSIDE RECORDS SUMMARY | 2024-12-08 16:31 | XMS_ITS | Encounter Summary ---
Author Organization [facility] Address 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
[2024-12-08 16:42] VITALS: BP 169/93; PULSE 90; RESP 18; TEMP 36.9; O2SAT 96
--- NOTE | 2024-12-08 16:45 | PC.NURSE ---
96 hr rights reviewed with pt @8113 with assistance of [facility] police officer Cordell Claire. All education reviewed with pt at this time. Pt did verbalize understanding to the hold parameters, but also stated that he would contact a planner and have all us fucking kidnappers arrested . HS attempted education to no avail. Pt was given a copy of their rights. Lab and NT in room to obtain labs and EKG. 1:1 PSA with pt.
[2024-12-08] MEDS: haloperidol inj 5 mg/mL INJ 1 mL IM (16:47)
[2024-12-08] MEDS: LORazepam 1 MG/0.5 ML injection 2 MG IM (16:47)
--- NOTE | 2024-12-08 16:48 | W.ED.PSYCHS ---
HPI - Psych General: Chief Complaint: Psychiatric Symptoms Stated Complaint: 96 HOUR HOLD Time Seen by Provider: 12/08/24 16:37 Source: patient Mode of arrival: ambulatory Limitations: no limitations History of Present Illness: 64-year-old male here by EMS for making homicidal statements. Patient is placed under 96-hour hold that was court ordered was brought in as he has been making statements to harm others. Patient is very angry here has not been very cooperative. He has been seen here in the past for same and has had multiple psych admissions Associated symptoms: Reports homicidal ideation Related Data Home Medications ?Medication ?Instructions ?Recorded ?Confirmed simvastatin 40 mg tablet 40 mg PO BEDTIME 02/19/24 12/08/24 cetirizine 10 mg tablet 10 mg PO DAILY 05/05/24 12/08/24 losartan 25 mg tablet 25 mg PO DAILY 10/29/24 12/08/24 paliperidone palmitate 234 mg/1.5 234 mg IM Q30D 10/29/24 12/08/24 [facility] sodium chloride 1,000 mg soluble 1,000 mg PO BID 11/06/24 12/08/24 tablet gabapentin 100 mg capsule 100 mg PO BID 11/15/24 12/08/24 divalproex 500 mg tablet,extended 1,000 mg PO BID 12/08/24 12/08/24 release 24 hr haloperidol 10 mg tablet 10 mg PO BID 12/08/24 12/08/24 risperidone 1 mg tablet 1 mg PO BID 12/08/24 12/08/24 tamsulosin 0.4 mg capsule 0.4 mg PO DAILY 12/08/24 12/08/24 Previous Rx's ?Medication ?Instructions ?Recorded metformin 500 mg tablet 500 mg PO BIDWM 30 days #60 tabs 09/22/24 metoprolol tartrate 25 mg tablet 25 mg PO BID 30 days #60 tabs 09/22/24 Allergies Allergy/AdvReac Type Severity Reaction Status Date / Time lithium Allergy ADR-Nausea Verified 11/09/24 11:40 oxycodone (From OxyContin) Allergy nausea Verified 11/09/24 11:40 Penicillins Allergy ALGY-Difficulty Verified 11/09/24 11:40 Breathing Review of Systems Const: Denies: fever(s), chills, body aches or change in appetite ENMT: Denies: throat pain or dental pain Card: Denies: chest pain Resp: Denies: dyspnea GI: Denies: abdominal pain, nausea, vomiting or diarrhea Musc: Denies: neck pain or back pain Skin/Breast: Denies: rash Neuro: Denies: headache(s) Psych: Reports: homicidal ideation [facility] PFSH: Medical History Cellulitis and abscess of left leg Chronic hyponatremia Schizoaffective disorder, bipolar type Seasonal allergies History of Parkinson's disease Hyperlipidemia Hypertension Psychiatric care Family History Father Cancer stomach Mother Cancer ovarian Social History Smoking and tobacco/nicotine status: former use of tobacco/nicotine Quit status (tobacco/nicotine): has quit using Year quit tobacco: Roughly 2014 Alcohol intake: current Alcohol intake frequency: holidays/special occasions only Substance/Drug Use: former Additional social history: Patient states he lives alone he would like full CODE STATUS as discussed 11/06/2024. He states that also if he saw [facility] he would want to go forward to [facility] Adopted: No Caregiver/support person: No Lives independently: Yes Household members: none Housing: Apartment Marital status: / Number of children: 1 Number of grandchildren: 2 Highest education level completed: 8th Grade Current occupational status: unemployed Pets and animals: No Leisure activites: exercise and clubs Sexually active: No Do you think of yourself as: Straight/Heterosexual Current gender identity: Male Janelle/Mormon: Quaker Special janelle needs: No Agree to transfusion: Yes Physical Exam Const: COMMON NORMALS: no acute distress, patient oriented x3 and healthy appearing HENMT: COMMON NORMALS: normocephalic and atraumatic HEAD & SCALP: normocephalic and atraumatic Eye: COMMON NORMALS: conjunctivae normal CONJUNCTIVA: Yes conjunctivae normal Neck/C-Spine: COMMON NORMALS: full ROM and supple Chest: COMMONS NORMALS: normal inspection of the chest Resp: COMMON NORMALS: normal respiratory effort Cardio: COMMON NORMALS: regular rate, regular rhythm and No murmurs present (Cardio) RATE: regular rate RHYTHM: regular rhythm Extremity: COMMON NORMALS: normal to inspection and full ROM Neuro: COMMON NORMALS: patient oriented x3, moves all extremities and no focal motor deficits Psych: COMMON NORMALS: mental status grossly normal MOOD & AFFECT: Yes irritable THOUGHT CONTENT: Yes Homicidality present Skin: COMMON NORMALS: no rashes or lesions noted and no wounds GENERAL SKIN EXAM: no rashes or lesions noted Course Vital Signs: Vital signs: Vital Signs Temperature 98.4 F 12/08/24 16:42 Pulse Rate 91 12/09/24 10:19 Respiratory Rate 18 12/09/24 10:19 Blood Pressure 153/91 12/09/24 10:19 Pulse Oximetry 97 12/09/24 10:19 Oxygen Delivery Me thod Room Air 12/09/24 00:00 [facility] - Psych Medical Decision Making Patient presents with acute psychosis along with homicidal ideations he is medically cleared his sodium here is improved he is excepted at [facility] will transfer there for higher level care geriatric psych Medical Records I reviewed the patient's medical records. Lab Data I reviewed the patient's lab results. 12/08/24 16:51 12/09/24 05:34 Radiology Impressions Chest X-Ray 12/09/24 07:12 IMPRESSION: No evidence of active cardiopulmonary disease. Laboratory Results WBC 7.41 10^3/uL (3.29-11.43) 12/08/24 16:51 RBC 4.43 10^6/uL (3.85-5.65) 12/08/24 16:51 Hgb 12.40 g/dL (11.27-16.99) 12/08/24 16:51 Hct 38.1 % (37-53) 12/08/24 16:51 MCV 86.0 fl (82-101) 12/08/24 16:51 MCH 28.0 pg (27-33) 12/08/24 16:51 MCHC 32.5 g/dL (30-55) 12/08/24 16:51 RDW 14.0 % (12.1-15.1) 12/08/24 16:51 Plt Count 248 10^3/cmm (157-399) 12/08/24 16:51 MPV 9.1 fL (7.4-10.4) 12/08/24 16:51 Neut % (Auto) 60.4 % 12/08/24 16:51 Lymph % (Auto) 23.5 % 12/08/24 16:51 Dougherty % (Auto) 9.2 % 12/08/24 16:51 Eos % (Auto) 5.9 % 12/08/24 16:51 Baso % (Auto) 0.7 % 12/08/24 16:51 Neut # (Auto) 4.48 10^3/uL (1.8-7.7) 12/08/24 16:51 Lymph # (Auto) 1.7 10^3/uL (0.8-4.8) 12/08/24 16:51 Dougherty # (Auto) 0.7 10^3/uL (0.2-0.9) 12/08/24 16:51 Eos # (Auto) 0.4 10^3/uL (0.0-0.8) 12/08/24 16:51 Baso # (Auto) 0.1 10^3/uL (0.0-0.1) 12/08/24 16:51 Nucleated RBC % (auto) 0 % 12/08/24 16:51 Nucleated RBCs # 0.0 /100WBC 12/08/24 16:51 Sodium 133 mmol/L (136-145) L 12/09/24 05:34 Potassium 4.1 mmol/L (3.5-5.1) 12/09/24 05:34 Chloride 96 mmol/L (98-107) L 12/09/24 05:34 Carbon Dioxide 25 mmol/L (22-29) 12/09/24 05:34 Anion Gap 16.1 (5-19) 12/09/24 05:34 BUN 6 mg/dL (8-23) L 12/09/24 05:34 Creatinine 0.6 mg/dL (0.7-1.2) L 12/09/24 05:34 GFR Calculation 136.5 mL/min (90-130) H 12/09/24 05:34 Glucose 161 mg/dL (65-115) H 12/09/24 05:34 Calculated Osmolality 277 mOsm/kg (285-295) L 12/09/24 05:34 Calcium 8.7 mg/dL (8.5-10.5) 12/09/24 05:34 Total Bilirubin 0.4 mg/dL (0.15-1.2) 12/09/24 05:34 AST 14 U/L (0-40) 12/09/24 05:34 ALT 10 U/L (0-41) 12/09/24 05:34 Alkaline Phosphatase 93 U/L (40-130) 12/09/24 05:34 Total Protein 6.5 g/dL (6.6-8.7) L 12/09/24 05:34 Albumin 3.7 g/dL (3.5-5.2) 12/09/24 05:34 Globulin 2.8 g/dL (1.3-4.6) 12/09/24 05:34 TSH 2.18 uIU/mL (0.27-4.20) 12/08/24 16:51 Urine Color Yellow (Yellow) 12/08/24 16:35 Urine Appearance Clear (CLEAR) 12/08/24 16:35 Urine pH 5.5 (5-7) 12/08/24 16:35 Ur Specific Nathalie 1.004 (1.005-1.030) L 12/08/24 16:35 Urine Protein Negative (Negative) 12/08/24 16:35 Urine Glucose (UA) Negative (Normal) 12/08/24 16:35 Urine Ketones Negative (Negative) 12/08/24 16:35 Urine Blood Negative (Negative) 12/08/24 16:35 Urine Nitrate Negative (Negative) 12/08/24 16:35 Urine Bilirubin Negative (Negative) 12/08/24 16:35 Urine Urobilinogen 1.0 mg/dL (Negative) 12/08/24 16:35 Ur Leukocyte Esterase Negative (Negative) 12/08/24 16:35 Urine RBC 0-2 /hpf (0-2) 12/08/24 16:35 Urine WBC 0-5 /hpf (0-5) 12/08/24 16:35 Ur Squamous Epith Cells 0-5 /hpf (0-5) 12/08/24 16:35 Amorphous Sediment Not Reportable 12/08/24 16:35 Urine Bacteria None seen /hpf (NONE) 12/08/24 16:35 Hyaline Casts 0-4 /lpf H 12/08/24 16:35 Salicylates < 0.3 mg/dL (3-10) L 12/08/24 16:51 Urine Opiates Screen Negative ng/mL (Negative) 12/08/24 16:35 Acetaminophen < 5.0 ug/mL (10-30) L 12/08/24 16:51 Ur Barbiturates Screen Negative ng/mL (Negative) 12/08/24 16:35 Ur Phencyclidine Scrn Negative ng/mL (Negative) 12/08/24 16:35 Ur Amphetamines Screen Negative ng/mL (Negative) 12/08/24 16:35 U Benzodiazepines Scrn Negative ng/mL (Negative) 12/08/24 16:35 Urine Cocaine Screen Negative ng/mL (Negative) 12/08/24 16:35 U Marijuana (THC) Screen Negative ng/mL (Negative) 12/08/24 16:35 Ethyl Alcohol < 10 mg/dL (0-10) 12/08/24 16:51 Influenza A (PCR) Negative (Negative) 12/08/24 18:10 Influenza Type B (PCR) Negative (Negative) 12/08/24 18:10 RSV (PCR) Negative (Negative) 12/08/24 18:10 SARS-CoV-2 (PCR) Negative (Negative) 12/08/24 18:10 No radiology studies performed this visit EKG Data EKG 1: I personally reviewed and interpreted this EKG as follows: EKG interpretation date: 12/08/24 EKG interpretation time: 16:49 Interpretation: nsr hr [address] elevation qrs 98 qtc 420 Discharge Plan Discharge Patient Disposition: Xfer Psychiatric Hosp Clinical Impression: Acute psychosis Condition: Stable Referrals: Shemar Arcos MD [Primary Care Provider, [facility]] Print Language: Dutch Coding Level of Care Code ED Frontend Engineer for [facility] E[facility]
--- NOTE | 2024-12-08 16:49 | ECG_ITS ---
[facility] Date: 2024-12[facility]08 Pat Name: Benedicto Amaral Department: Room: Gender: Male Clinical Medical Assistant: : 1960 Requested By: Ruddy Neves Order Number: [id number] Endy MD: Aiden Cervantes M.D. Measurements Intervals [place] Rate: 84 P: 50 CA: 192 QRS: 11 QRSD: 98 T: 44 QT: 379 QTc: 450 Interpretive Statements SINUS RHYTHM WITH OCCASIONAL VENTRICULAR PREMATURE COMPLEXES Compared to ECG 11/27/2024 21:48:59 Ventricular premature complex(es) now present Electronically Signed On 12-11-2024 10:27:43 CDT by Aiden Cervantes M.D. [email or web address]
[2024-12-08 16:50] LABS: PCP Screen Urine Negative (Negative)
[2024-12-08 16:57] LABS: Hematocrit 38.1 % (37-53); Hemoglobin 12.40 g/dL (11.27-16.99); Mean Corpuscular HGB Conc 32.5 g/dL (30-55); Mean Corpuscular Hemoglobin 28.0 pg (27-33); Mean Corpuscular Volume 86.0 fl (82-101); Nucleated Red Blood Cells % 0 %; Platelet Count 248 10^3/cmm (157-399); Red Blood Count 4.43 10^6/uL (3.85-5.65); White Blood Count 7.41 10^3/uL (3.29-11.43)
[2024-12-08 17:35] LABS: Alanine Aminotransferase 11 U/L (0-41); Albumin Level 3.8 g/dL (3.5-5.2); Alkaline Phosphatase 83 U/L (40-130); Anion Gap 17.8 (5-19); Aspartate Amino Transferase 15 U/L (0-40); Blood Urea Nitrogen 7 mg/dL (8-23); Calcium 8.5 mg/dL (8.5-10.5); Carbon Dioxide 22 mmol/L (22-29); Chloride 89 mmol/L (98-107); Creatinine Clr Calc Pharmacy 120.4648; Globulin 2.5 g/dL (1.3-4.6); Glucose 162 mg/dL (65-115); Osmolality Calculated 262 mOsm/kg (285-295); Potassium 3.8 mmol/L (3.5-5.1); Sodium 125 mmol/L (136-145); Thyroid Stimulating Hormone 2.18 uIU/mL (0.27-4.20); Total Protein 6.3 g/dL (6.6-8.7)
[2024-12-08 17:36] LABS: Acetaminophen < 5.0 ug/mL (10-30); Alcohol Level < 10 mg/dL (0-10); Salicylate < 0.3 mg/dL (3-10)
[2024-12-08 18:30] VITALS: PULSE 87; RESP 16; O2SAT 99
[2024-12-08 18:33] LABS: Glucose Urine UA Negative (Normal); Nitrate Urine Negative (Negative); Specific Gravity, Urine 1.004 (1.005-1.030)
[2024-12-08 18:37] LABS: Add Urine Microscopic? YES
[2024-12-08 19:13] LABS: Respiratory Syncytial Virus Ce NEGATIVE (Negative); SARS-CoV-2 PCR NEGATIVE (Negative)
[2024-12-08 22:40] LABS: Alanine Aminotransferase 9 U/L (0-41); Albumin Level 3.3 g/dL (3.5-5.2); Alkaline Phosphatase 79 U/L (40-130); Anion Gap 14.1 (5-19); Aspartate Amino Transferase 13 U/L (0-40); Blood Urea Nitrogen 6 mg/dL (8-23); Calcium 8.2 mg/dL (8.5-10.5); Carbon Dioxide 24 mmol/L (22-29); Chloride 100 mmol/L (98-107); Creatinine Clr Calc Pharmacy 140.5423; Globulin 2.1 g/dL (1.3-4.6); Glucose 127 mg/dL (65-115); Osmolality Calculated 277 mOsm/kg (285-295); Potassium 4.1 mmol/L (3.5-5.1); Sodium 134 mmol/L (136-145); Total Protein 5.4 g/dL (6.6-8.7)
--- NOTE | 2024-12-08 23:59 | PC.NURSE ---
pt continuously yelling and threatening to leave. states staff has to help clean him and hold his urinal. pt demonstrates ability to utilize the urinal himself. pt noy to bed at this time will continue to monitor
[2024-12-09] VITALS: BP 182/91; PULSE 91; RESP 20; O2SAT 97
[2024-12-09 01:25] LABS: Alanine Aminotransferase 10 U/L (0-41); Albumin Level 3.6 g/dL (3.5-5.2); Alkaline Phosphatase 88 U/L (40-130); Anion Gap 16.1 (5-19); Aspartate Amino Transferase 14 U/L (0-40); Blood Urea Nitrogen 6 mg/dL (8-23); Calcium 8.2 mg/dL (8.5-10.5); Carbon Dioxide 24 mmol/L (22-29); Chloride 97 mmol/L (98-107); Creatinine Clr Calc Pharmacy 120.4648; Globulin 2.2 g/dL (1.3-4.6); Glucose 207 mg/dL (65-115); Osmolality Calculated 280 mOsm/kg (285-295); Potassium 4.1 mmol/L (3.5-5.1); Sodium 133 mmol/L (136-145); Total Protein 5.8 g/dL (6.6-8.7)
[2024-12-09 06:07] LABS: Alanine Aminotransferase 10 U/L (0-41); Albumin Level 3.7 g/dL (3.5-5.2); Alkaline Phosphatase 93 U/L (40-130); Anion Gap 16.1 (5-19); Aspartate Amino Transferase 14 U/L (0-40); Blood Urea Nitrogen 6 mg/dL (8-23); Calcium 8.7 mg/dL (8.5-10.5); Carbon Dioxide 25 mmol/L (22-29); Chloride 96 mmol/L (98-107); Creatinine Clr Calc Pharmacy 140.5423; Globulin 2.8 g/dL (1.3-4.6); Glucose 161 mg/dL (65-115); Osmolality Calculated 277 mOsm/kg (285-295); Potassium 4.1 mmol/L (3.5-5.1); Sodium 133 mmol/L (136-145); Total Protein 6.5 g/dL (6.6-8.7)
[2024-12-09] MEDS: LORazepam 1 MG/0.5 ML injection 2 MG IM (06:37)
--- NOTE | 2024-12-09 07:12 | XRR_ITS ---
PROCEDURE INFORMATION: Exam: XR Chest Exam date and time: 12/09/2024 7:27 AM Age: 64 years old Clinical indication: Screening exam; Other screening; Medical clearance; Additional info: Transfer request TECHNIQUE: Imaging protocol: Radiologic exam of the chest. Views: 1 view. COMPARISON: CR (CHEST, ) 11/27/2024 9:10 PM FINDINGS: Lungs: Mild increased lung markings, likely secondary to low lung volumes. No consolidation. Pleural spaces: Unremarkable. No pleural effusion. No pneumothorax. Heart/Mediastinum: Stable cardiomediastinal silhouette. Bones/joints: Degenerative changes of the spine seen. XR/XR chest 1V portable [id number] IMPRESSION: No evidence of active cardiopulmonary disease.
--- NOTE | 2024-12-09 07:14 | PC.NURSE ---
patient continuously yelling at staff, patient threatens to get the fbi involved due to being involuntarily held against his will. patient has been instructed that he placed on a 96 hour hold. patient continues to be verbally aggressive to staff. dr carson notified.
[2024-12-09 10:19] VITALS: BP 153/91; PULSE 91; RESP 18; O2SAT 97
--- NOTE | 2024-12-09 12:23 | PC.NURSE ---
ativan and halidol not given. wasted in pixis with charge anita
[2024-12-09 15:00] VITALS: PULSE 88; O2SAT 98
--- NOTE | 2024-12-09 15:03 | PC.NURSE ---
report called by charge nurse anita to lamine martinez RN
[2024-12-09] MEDS: water for injection-sterile 10 ML 1.5 ML (15:35)
== END 2024-12-09 17:36 ==
PROVIDERS: Emergency Medicine; Emergency Provider Emergency Medicine; PCP Family Medicine
DX: F23 Brief psychotic disorder (principal); Z11.52 Encounter for screening for COVID-19; Z87.891 Personal history of nicotine dependence; E78.5 Hyperlipidemia, unspecified; I10 Essential (primary) hypertension
CPT/HCPCS: 36415; 71045; 80053; 80306; 80307; 81001; 84443; 85025; 87637; 93005; 96360; 96361; 96372; 99285; J1630; J2060; J3486; J7030; J7040

== ENCOUNTER 2024-12-16 14:00 | Emergency (ER) | payer OTHER, MEDICAID, SELFPAY ==
[2024-12-16 14:01] VITALS: BP 166/97; PULSE 113; RESP 16; TEMP 36.4; O2SAT 92; BMI 28.7
--- NOTE | 2024-12-16 14:13 | ECG_ITS ---
[facility] Date: 2024-[facility]16 Pat Name: Benedicto Amaral Department: Room: Gender: Male Ladle Liner: : 1950-03-26 Requested By: Miguel Eaton Order Number: [id number] Endy MD: Yusra White M.D. Measurements Intervals [place] Rate: 111 P: 59 GA: 166 QRS: 4 QRSD: 90 T: 49 QT: 343 QTc: 467 Interpretive Statements SINUS TACHYCARDIA WITH FREQUENT VENTRICULAR PREMATURE COMPLEXES WITH OCCASIONAL SUPRAVENTRICULAR PREMATURE COMPLEXES ABNORMAL RHYTHM ECG No previous ECG available for comparison Electronically Signed On 12-16-2024 22:59:30 CDT by Yusra White M.D. [email or web address] [email or web address]
--- NOTE | 2024-12-16 14:13 | W.ED.AMS ---
HPI - Altered Mental Status General: Chief Complaint: Altered Mental Status Stated Complaint: AMS Time Seen by Provider: 12/16/24 14:02 History of Present Illness: 72-year-old male presents emergency room from [facility] via EMS with complaints of altered mental status. Seen [facility] several times before usually he has aggressive behavior or homicidal or suicidal behavior. Today he is much more sedate than usual he is slurring his words he has occasional loud verbal outbursts but is mostly sedate. He had urinated himself prior to arrival. He does not open his eyes fully willingly talk to him. He does respond to noxious stimuli. He thinks he is still in [place]. We had recently sent him here to be transferred to [place] for geriatric psychiatry. He was doing a follow-up at [facility] today when they noted he was not behaving appropriately. Related Data Home Medications ?Medication ?Instructions ?Recorded ?Confirmed simvastatin 40 mg tablet 40 mg PO BEDTIME 02/19/24 12/16/24 cetirizine 10 mg tablet 10 mg PO DAILY PRN allergies 05/05/24 12/16/24 losartan 25 mg tablet 25 mg PO DAILY 10/29/24 12/16/24 paliperidone palmitate 234 mg/1.5 234 mg IM Q30D 10/29/24 12/16/24 [facility] sodium chloride 1,000 mg soluble 1,000 mg PO BID 11/06/24 12/16/24 tablet gabapentin 100 mg capsule 100 mg PO BID 11/15/24 12/16/24 divalproex 500 mg tablet,extended 1,000 mg PO BID 12/08/24 12/16/24 release 24 hr risperidone 1 mg tablet 1 mg PO BID 12/08/24 12/16/24 tamsulosin 0.4 mg capsule 0.4 mg PO DAILY 12/08/24 12/16/24 eszopiclone 3 mg tablet 3 mg PO BEDTIME 12/16/24 12/16/24 haloperidol 5 mg tablet 5 mg PO BID 12/16/24 12/16/24 lorazepam 1 mg tablet 1 mg PO TID 12/16/24 12/16/24 paliperidone 3 mg tablet,extended 9 mg PO TID 12/16/24 12/16/24 release 24 hr Previous Rx's ?Medication ?Instructions ?Recorded metformin 500 mg tablet 500 mg PO BIDWM 30 days #60 tabs 09/22/24 metoprolol tartrate 25 mg tablet 25 mg PO BID 30 days #60 tabs 09/22/24 Allergies Allergy/AdvReac Type Severity Reaction Status Date / Time lithium Allergy ADR-Nausea Verified 12/16/24 14:32 oxycodone (From OxyContin) Allergy nausea Verified 12/16/24 14:32 Penicillins Allergy ALGY-Difficulty Verified 12/16/24 14:32 Breathing Review of Systems Const: Denies: fever(s) or chills Card: Denies: chest pain Resp: Denies: dyspnea GI: Denies: abdominal pain : Denies: dysuria, urinary frequency or urinary urgency Musc: Denies: neck pain or back pain Skin/Breast: Denies: rash PFSH ED PFSH: Medical History Cellulitis and abscess of left leg Chronic hyponatremia Schizoaffective disorder, bipolar type Seasonal allergies History of Parkinson's disease Hyperlipidemia Hypertension Psychiatric care Family History Father Cancer stomach Mother Cancer ovarian Social History Smoking and tobacco/nicotine status: former use of tobacco/nicotine Quit status (tobacco/nicotine): has quit using Year quit tobacco: Roughly 2014 Alcohol intake: current Alcohol intake frequency: holidays/special occasions only Substance/Drug Use: former Additional social history: Patient states he lives alone he would like full CODE STATUS as discussed 11/06/2024. He states that also if he saw [facility] he would want to go forward to [facility] Adopted: No Caregiver/support person: No Lives independently: Yes Household members: none Housing: Apartment Marital status: / Number of children: 1 Number of grandchildren: 2 Highest education level completed: 8th Grade Current occupational status: unemployed Pets and animals: No Leisure activites: exercise and clubs Sexually active: No Do you think of yourself as: Straight/Heterosexual Current gender identity: Male Janelle/Christianity: Christianity Special janelle needs: No Agree to transfusion: Yes Physical Exam Const: COMMON NORMALS: no acute distress ORIENTATION/CONSCIOUSNESS: Yes awake, Yes oriented to person, Yes oriented to place and Yes oriented to time HENMT: COMMON NORMALS: normocephalic, atraumatic and hearing grossly normal bilaterally HEAD & SCALP: normocephalic and atraumatic Resp: COMMON NORMALS: normal respiratory effort, No retractions, No use of accessory muscles and clear to auscultation bilaterally AUSCULTATION: clear to auscultation bilaterally Cardio: COMMON NORMALS: regular rate, regular rhythm and No murmurs present (Cardio) RATE: regular rate RHYTHM: regular rhythm GI: COMMON NORMALS: Soft to palpation and No hepatosplenomegaly present AUSCULTATION: Yes normoactive bowel sounds PALPATION: Yes Soft to palpation, No Tenderness to palpation present (GI), No Guarding due to palpation present (GI) and Yes No hepatosplenomegaly present Extremity: COMMON NORMALS: normal to inspection, capillary refill normal, no clubbing, cyanosis or edema, no calf tenderness and no pedal edema Neuro: SENSORIUM/ORIENTATION: Yes oriented to person, Yes oriented to place and Yes oriented to time Skin: COMMON NORMALS: no rashes or lesions noted GENERAL SKIN EXAM: no rashes or lesions noted Course Vital Signs: Vital signs: Vital Signs Temperature 97.6 F 12/16/24 14:01 Pulse Rate 106 H 12/16/24 17:30 Respiratory Rate 18 12/16/24 17:30 Blood Pressure 187/99 12/16/24 17:30 Pulse Oximetry 98 12/16/24 17:30 Oxygen Delivery Me thod Room Air 12/16/24 14:01 MDM - Altered Mental Status Medical Decision Making Patient initially presents somewhat sedate. Patient is agitated but staff was able to repeatedly verbally de-escalate him. This is typical for the patient he is usually relatively difficult to deal with. He blames his change in level of interaction due to medication changes from recent hospitalization he was just discharged yesterday. While he is being difficult he is not suicidal he is not homicidal he is not acutely psychotic he is not having any hallucinations. At this point there is no emergent psychological condition or medical condition that we can find that would require him to be hospitalized. We did monitor him for time he is feeling better he wishes to go with no reason to force him to stay at this point. We did contact family and they are still concerned about him on the long-term basis they want him to have a guardian and be in some kind of structured living setting where they would agree with this or not in a position nor is there any emergent condition at this time that we can force this issue. Encouraged family to continue to pursue these options through the usual means. Medical Records I reviewed the patient's medical records. Lab Data I reviewed the patient's lab results. 12/16/24 13:50 12/16/24 13:[address] 12/16/24 14:14 IMPRESSION: 1. No acute intracranial hemorrhage or edema. 2. No prior infarct. No significant volume loss. Laboratory Results WBC 5.70 10^3/uL (3.29-11.43) 12/16/24 13:50 RBC 4.62 10^6/uL (3.85-5.65) 12/16/24 13:50 Hgb 12.90 g/dL (11.27-16.99) 12/16/24 13:50 Hct 38.8 % (37-53) 12/16/24 13:50 MCV 84.0 fl (82-101) 12/16/24 13:50 MCH 27.9 pg (27-33) 12/16/24 13:50 MCHC 33.2 g/dL (30-55) 12/16/24 13:50 RDW 13.9 % (12.1-15.1) 12/16/24 13:50 Plt Count 304 10^3/cmm (157-399) 12/16/24 13:50 MPV 9.3 fL (7.4-10.4) 12/16/24 13:50 Neut % (Auto) 67.8 % 12/16/24 13:50 Lymph % (Auto) 18.2 % 12/16/24 13:50 Barron % (Auto) 8.6 % 12/16/24 13:50 Eos % (Auto) 4.4 % 12/16/24 13:50 Baso % (Auto) 0.5 % 12/16/24 13:50 Neut # (Auto) 3.86 10^3/uL (1.8-7.7) 12/16/24 13:50 Lymph # (Auto) 1.0 10^3/uL (0.8-4.8) 12/16/24 13:50 Barron # (Auto) 0.5 10^3/uL (0.2-0.9) 12/16/24 13:50 Eos # (Auto) 0.3 10^3/uL (0.0-0.8) 12/16/24 13:50 Baso # (Auto) 0.0 10^3/uL (0.0-0.1) 12/16/24 13:50 Nucleated RBC % (auto) 0 % 12/16/24 13:50 Nucleated RBCs # 0.0 /100WBC 12/16/24 13:50 Sodium 131 mmol/L (136-145) L 12/16/24 13:50 Potassium 4.1 mmol/L (3.5-5.1) 12/16/24 13:50 Chloride 92 mmol/L (98-107) L 12/16/24 13:50 Carbon Dioxide 26 mmol/L (22-29) 12/16/24 13:50 Anion Gap 17.1 (5-19) 12/16/24 13:50 BUN 12 mg/dL (8-23) 12/16/24 13:50 Creatinine 0.7 mg/dL (0.7-1.2) 12/16/24 13:50 GFR Calculation 114.3 mL/min (90-130) 12/16/24 13:50 Glucose 114 mg/dL (65-115) 12/16/24 13:50 Calculated Osmolality 273 mOsm/kg (285-295) L 12/16/24 13:50 Lactic Acid 1.9 mmol/L (0.5-2.2) 12/16/24 13:50 Calcium 9.2 mg/dL (8.5-10.5) 12/16/24 13:50 Total Bilirubin 0.4 mg/dL (0.15-1.2) 12/16/24 13:50 AST 18 U/L (0-40) 12/16/24 13:50 ALT 11 U/L (0-41) 12/16/24 13:50 Alkaline Phosphatase 85 U/L (40-130) 12/16/24 13:50 Total Protein 6.5 g/dL (6.6-8.7) L 12/16/24 13:50 Albumin 3.8 g/dL (3.5-5.2) 12/16/24 13:50 Globulin 2.7 g/dL (1.3-4.6) 12/16/24 13:50 Salicylates < 0.3 mg/dL (3-10) L 12/16/24 13:50 Acetaminophen < 5.0 ug/mL (10-30) L 12/16/24 13:50 Ethyl Alcohol < 10 mg/dL (0-10) 12/16/24 13:50 All radiology interpretation(s) finalized by discharge Discharge Plan Discharge Patient Disposition: Home Clinical Impression: Medication side effect, History of Parkinson's disease Condition: Stable Prescriptions: No Action simvastatin 40 mg tablet 40 mg PO BEDTIME Invega Sustenna 234 mg/1.5 mL syringe 234 mg IM Q30D Rx Instructions: Injection every 28 days- Due 12/17/24 at appt. losartan 25 mg tablet 25 mg PO DAILY cetirizine 10 mg tablet 10 mg PO DAILY PRN (Reason: allergies) metformin 500 mg Tablet 500 mg PO BIDWM 30 Days Qty: 60 1RF metoprolol tartrate 25 mg tablet 25 mg PO BID 30 Days Qty: 60 1RF sodium chloride 1,000 mg tablet,soluble 1,000 mg PO BID gabapentin 100 mg capsule 100 mg PO BID tamsulosin 0.4 mg capsule 0.4 mg PO DAILY divalproex 500 mg tablet extended release 24 hr 1,000 mg PO BID risperidone 1 mg tablet 1 mg PO BID haloperidol 5 mg tablet 5 mg PO BID lorazepam 1 mg tablet 1 mg PO TID eszopiclone 3 mg tablet 3 mg PO BEDTIME paliperidone 3 mg tablet extended release 24hr 9 mg PO TID Discharge Orders: Discharge ED (Routine); Ordered 12/16/24 Ordered By: Miguel Rawls Discharge Diet: Usual diet Discharge Activity: Resume usual activity Patient Instructions: Altered Mental Status (ED), Opioid Safety, Pain Management, Patient Portal & [place] Instructions Activity Restrictions/Additional Instructions: Thank you for choosing [facility] for your healthcare needs today. It is very important that you follow up as instructed or that you return to the Emergency Department should you have concerns or if your condition changes or worsens in any way. Continue your current medications follow-up with [facility] Print Language: Indonesian Coding Level of Care Code ED Payroll Coordinator for Brien Loomis
--- NOTE | 2024-12-16 14:14 | CT_ITS ---
WS: [id number] CT HEAD NONCONTRAST HISTORY: Altered mental status TECHNIQUE: Contiguous axial imaging performed through the brain. Bone and soft tissue windows. Sagittal and coronal reformats reviewed. All CT scans at [facility] use at least one of these dose optimization techniques: automated exposure control; mA and/or kV adjustment per patient size (includes targeted exams where dose is matched to clinical indication); or iterative reconstruction. DLP: 1200.89 mGy.cm COMPARISON: None available. No acute intracranial hemorrhage, midline shift or mass effect. No atrophy or prior infarcts or herniation. Ventricles: Normal size with no hydrocephalus. Paranasal sinuses: As visualized are clear. Mastoid air cells: Well pneumatized. Calvarium and scalp: Skull is intact with no soft tissue edema or swelling. CT/CT head wo con* [id number] IMPRESSION: 1. No acute intracranial hemorrhage or edema. 2. No prior infarct. No significant volume loss.
--- OUTSIDE RECORDS SUMMARY | 2024-12-16 14:19 | XMS_ITS | Patient Health Record ---
Author Organization [facility] Address [address] [place] [address] Care Team Providers Care Emergency Room Tech Name Role Phone Shemar Arcos MD Primary Care Provider UnavailMarlene Petty Unavailable [phone] Sb Hutchison Unavailable Reason For Referral No Information Problems Problem Type SNOMED Code ICD Code Onset Dates Problem Status W/U Status Risk Notes Problem Schizophrenia (12758403) Schizophrenia, unspecified (F20.9) Active confirmed Problem Severe recurrent major depression with psychotic features (05596800) Major depressive disorder, recurrent, severe with psychotic symptoms (F33.3) Active confirmed Problem Adjustment disorder with mixed disturbance of emotions AND conduct (67020868) Adjustment disorder with mixed disturbance of emotions and conduct (F43.25) Active confirmed Problem Anxiety (49790630) Anxiety (F41.9) Active confirmed Problem Insomnia (741624172) Insomnia (G47.00) Active confirmed Problem Psychosis (71087774) Psychosis (F29) Active confirmed Problem Moderate recurrent major depression (11111488) Major depressive disorder, recurrent episode, moderate (F33.1) Active confirmed Problem Benign prostatic hypertrophy without outflow obstruction (386076299) BPH loc w/o ur obs/LUTS (N40.0) Active confirmed Encounters Encounter Location Date Provider Diagnosis Formerly [facility] [address] [place] [address] 11/07/2024 Sb Hutchison BPH loc w/o ur [...] nursing staff. Vitals taken and recorded at [facility]. 11/07/2024 Major depressive disorder, recurrent, severe [...] [employer] Medicare Dual Complete HMO [address] [address] [place] [address] [phone] [id number] Benedicto Amaral Self - patient is the insured [place] Medicaid [address] [place] [address] [id number] Benedicto Amaral Self - patient is the insured
--- OUTSIDE RECORDS SUMMARY | 2024-12-16 14:19 | XMS_ITS ---
Author Organization Unknown Medications Date Medication Dosage DosageUnit StartDate StopDate StopReason Active DoseQuantity DoseUnit Dispense DispenseUnit Refills NdcCode DrugCode PharmacyId IsPrescription MappedMedication Srcstatus Custom 02/20 15:36 :52 metoprolol tartrate 25 mg tablet 00:00:00 Other 0 [id number] 608 [id number] 08 False Inactive 04/22 08:39 :50 multivitami n 1 False Active 04/22 08:38 :38 Fish Oil 1 False A ctive 04/22 08:37 :49 calcium 600 mg (as calcium carbonate 1,500 mg) tablet 1 [id number] 0 022 [id number] 22 False Active 10/28 00:00 :00 Januvia 50 mg tablet 10/29/2023 00:00:00 00:00:00 Other 0 52080220 254 [id number] 54 False Inactive 06/06 10:07 :26 Januvia 100 mg tablet 01/28/2024 00:00:00 1 30 tablet 3 88502 027 754 [id number] 54 319 False Active 01/27 08:28 :47 Januvia 100 mg tablet 01/28/2024 00:00:00 0 30 tablet 3 46621 027 754 [id number] 54 319 True Inactive 02/20 15:36 :51 metoprolol tartrate 25 mg tablet 02/21/2024 00:00:00 1 180 tablet 2 5766 4050 608 [id number] 08 319 False Active
[2024-12-16 14:26] LABS: Hematocrit 38.8 % (37-53); Hemoglobin 12.90 g/dL (11.27-16.99); Mean Corpuscular HGB Conc 33.2 g/dL (30-55); Mean Corpuscular Hemoglobin 27.9 pg (27-33); Mean Corpuscular Volume 84.0 fl (82-101); Nucleated Red Blood Cells % 0 %; Platelet Count 304 10^3/cmm (157-399); Red Blood Count 4.62 10^6/uL (3.85-5.65); White Blood Count 5.70 10^3/uL (3.29-11.43)
[2024-12-16 14:46] LABS: Alanine Aminotransferase 11 U/L (0-41); Albumin Level 3.8 g/dL (3.5-5.2); Alkaline Phosphatase 85 U/L (40-130); Anion Gap 17.1 (5-19); Aspartate Amino Transferase 18 U/L (0-40); Blood Urea Nitrogen 12 mg/dL (8-23); Calcium 9.2 mg/dL (8.5-10.5); Carbon Dioxide 26 mmol/L (22-29); Chloride 92 mmol/L (98-107); Creatinine Clr Calc Pharmacy 127.7652; Globulin 2.7 g/dL (1.3-4.6); Glucose 114 mg/dL (65-115); Osmolality Calculated 273 mOsm/kg (285-295); Potassium 4.1 mmol/L (3.5-5.1); Sodium 131 mmol/L (136-145); Total Protein 6.5 g/dL (6.6-8.7)
[2024-12-16 14:47] LABS: Lactic Sepsis W/Reflex 1.9 mmol/L (0.5-2.2)
[2024-12-16 14:49] LABS: Acetaminophen < 5.0 ug/mL (10-30); Alcohol Level < 10 mg/dL (0-10); Salicylate < 0.3 mg/dL (3-10)
--- NOTE | 2024-12-16 15:08 | PC.PHAR ---
Pt discharged from [facility] yesterday 12/15/24. 4 medications out for delivery from [facility] today. They are Lorazepam 1mg tid, Paliperidone ER 3mg 9mg po tid, Haloperidol 5mg bid, and Sodium Chloride 1000mg bid.
--- NOTE | 2024-12-16 16:38 | PC.NURSE ---
pt was able to ambulate with walker. pt states that he uses a walker to ambulate at home.
[2024-12-16] MEDS: labetalol 5 mg/mL SDV 20mL 10 MG IVP (17:09)
[2024-12-16 17:30] VITALS: BP 187/99; PULSE 106; RESP 18; O2SAT 98
== END 2024-12-16 17:30 | disposition home or self-care (01) ==
PROVIDERS: Emergency Provider Family Medicine
DX: T50.905A Adverse effect of unspecified drugs, medicaments and biological substances, initial encounter (principal); G20.A1 Parkinson's disease without dyskinesia, without mention of fluctuations; Z79.84 Long term (current) use of oral hypoglycemic drugs; Z87.891 Personal history of nicotine dependence; E78.5 Hyperlipidemia, unspecified; I10 Essential (primary) hypertension; X58.XXXA Exposure to other specified factors, initial encounter
CPT/HCPCS: 36415; 70450; 80053; 80307; 83605; 85025; 87040; 93005; 96374; 96375; 99285; J2310; J3490

== ENCOUNTER → 2025-01-19 09:53 | Outpatient (BNVA) | payer OTHER, MEDICAID, SELFPAY ==
[2024-08-12 08:41] VITALS: BP 143/101; BMI 36.0
== END ==
PROVIDERS: Visit Provider Nurse Practitioner Psychiatric/Mental Health
DX: Z79.899 Other long term (current) drug therapy (principal)
CPT/HCPCS: 80053; 80164

== ENCOUNTER → 2025-03-20 09:00 | Outpatient (BNVA) | payer MEDICARE, MEDICAID, OTHER, SELFPAY ==
[2024-08-12 08:41] VITALS: BP 143/101; BMI 36.0
== END ==
PROVIDERS: Visit Provider Nurse Practitioner Psychiatric/Mental Health
DX: Z79.899 Other long term (current) drug therapy (principal)
CPT/HCPCS: 80053; 80164

== ENCOUNTER → 2025-04-14 08:13 | Outpatient (BNVA) | payer MEDICARE, MEDICAID, SELFPAY ==
[2024-08-12 08:41] VITALS: BP 143/101; BMI 36.0
== END ==
PROVIDERS: Referring Provider Family Medicine; Visit Provider Specialist
DX: G24.01 Drug induced subacute dyskinesia (principal); T43.505A Adverse effect of unspecified antipsychotics and neuroleptics, initial encounter; X58.XXXA Exposure to other specified factors, initial encounter
CPT/HCPCS: 99204